=== PATIENT | female | born 1940 | race Caucasian/White ===

== ENCOUNTER → 2020-03-05 08:05 | Outpatient (BNVA) | payer MEDICARE, MEDICAID, SELFPAY | PROVIDERS: PCP Internal Medicine; Visit Provider Internal Medicine | DX: I48.0 Paroxysmal atrial fibrillation (principal); Z51.81 Encounter for therapeutic drug level monitoring; Z79.01 Long term (current) use of anticoagulants | CPT/HCPCS: 85610; 99211 ==

== ENCOUNTER 2020-03-21 07:11 | Outpatient (REF) | payer MEDICARE, MEDICAID, SELFPAY ==
[2020-03-21 08:12] LABS: Hematocrit 44.5 % (37-47); Hemoglobin 14.5 g/dl (12.0-16.0); Mean Corpuscular HGB Conc 32.6 g/dl (31.0-35.0); Mean Corpuscular Hemoglobin 31.2 pg (27.0-33.0); Mean Corpuscular Volume 95.7 fL (80-98); Mean Platelet Volume 11.9 fL (9.4-12.3); Platelet Count 192 X10*3/uL (160-400); Red Blood Count 4.65 X10*6/uL (4.20-5.50); Red Cell Distribution Width 12.9 % (11.0-16.0)
[2020-03-21 08:37] LABS: Alanine Aminotransferase 25 U/L (0-31); Albumin Level 4.2 g/dL (3.5-5.0); Alkaline Phosphatase 81 U/L (39-117); Anion Gap 13 (12-20); Aspartate Amino Transferase 22 U/L (5-31); Bilirubin Total 0.4 mg/dL (0.0-1.0); Blood Urea Nitrogen 25 mg/dL (9-16); Calcium 9.6 mg/dL (8.4-10.2); Carbon Dioxide 32 mmol/L (22-29); Chloride 100 mmol/L (96-108); Cholesterol 330 mg/dL; Estimated Glomerular Filt Rate 48; Glucose Fasting 201 mg/dL (60-99); HDL Cholesterol 50 mg/dL; LDL Cholesterol Calculated 253 mg/dl; Potassium 4.6 mmol/l (3.3-5.1); Sodium 140 mmol/L (135-145); Total Protein 7.5 g/dL (6.5-8.0); Triglycerides 135 mg/dL
[2020-03-21 08:45] LABS: Estimated Average Glucose 131 mg/dL; Hemoglobin A1c % 6.2 %
[2020-03-21 09:00] LABS: Thyroid Stimulating Hormone 1.56 mIU/mL (0.32-4.0)
[2020-03-21 09:31] LABS: Creatinine Urine 91.87 mg/dL; Microalbum/Creatinine Ratio Ur 9.7 ug/mg cr
== END 2020-03-21 07:12 | disposition home or self-care (01) ==
LOC: HO.LAB 07:11
PROVIDERS: PCP Internal Medicine; Visit Provider Internal Medicine
DX: E11.9 Type 2 diabetes mellitus without complications (principal); I48.91 Unspecified atrial fibrillation; I50.9 Heart failure, unspecified; I11.0 Hypertensive heart disease with heart failure; E78.5 Hyperlipidemia, unspecified; M06.9 Rheumatoid arthritis, unspecified; I26.99 Other pulmonary embolism without acute cor pulmonale; I87.2 Venous insufficiency (chronic) (peripheral); Z79.01 Long term (current) use of anticoagulants
CPT/HCPCS: 36415; 80048; 80053; 80061; 82043; 83036; 84443; 85027

== ENCOUNTER 2020-03-28 07:42 | Outpatient (REF) | payer MEDICARE, MEDICAID, SELFPAY ==
[2020-03-28 09:15] LABS: Anion Gap 17 (12-20); Blood Urea Nitrogen 24 mg/dL (9-16); Carbon Dioxide 31 mmol/L (22-29); Chloride 100 mmol/L (96-108); Estimated Glomerular Filt Rate 54; Glucose Random 132 mg/dL (60-115); Magnesium 2.1 mg/dL (1.6-2.6); Potassium 5.1 mmol/l (3.3-5.1); Sodium 143 mmol/L (135-145)
== END 2020-03-28 07:43 | disposition home or self-care (01) ==
LOC: HO.LAB 07:42
PROVIDERS: PCP Internal Medicine; Visit Provider Nurse Practitioner Family
DX: I48.11 Longstanding persistent atrial fibrillation (principal); I50.32 Chronic diastolic (congestive) heart failure
CPT/HCPCS: 80048; 83735

== ENCOUNTER → 2020-04-01 08:06 | Outpatient (BNVA) | payer MEDICARE, MEDICAID, SELFPAY | PROVIDERS: PCP Internal Medicine; Visit Provider Internal Medicine | DX: I48.0 Paroxysmal atrial fibrillation (principal); Z51.81 Encounter for therapeutic drug level monitoring; Z79.01 Long term (current) use of anticoagulants | CPT/HCPCS: 85610; 99211 ==

== ENCOUNTER → 2020-04-29 08:15 | Outpatient (BNVA) | payer MEDICARE, MEDICAID, SELFPAY | PROVIDERS: PCP Internal Medicine; Visit Provider Internal Medicine | DX: I48.0 Paroxysmal atrial fibrillation (principal); Z51.81 Encounter for therapeutic drug level monitoring; Z79.01 Long term (current) use of anticoagulants | CPT/HCPCS: 85610; 99211 ==

== ENCOUNTER → 2020-05-27 11:04 | Outpatient (BNVA) | payer MEDICARE, MEDICAID, SELFPAY | PROVIDERS: PCP Internal Medicine; Visit Provider Internal Medicine | DX: Z76.89 Persons encountering health services in other specified circumstances (principal) | CPT/HCPCS: 85610; 99211 ==

== ENCOUNTER 2020-05-27 13:19 | Outpatient (REF) | payer MEDICARE, MEDICAID, SELFPAY | END 2020-05-27 13:20 | disposition home or self-care (01) | LOC: HO.HMGCLDS 13:19 | PROVIDERS: PCP Internal Medicine; Visit Provider Internal Medicine | DX: Z20.828 Contact with and (suspected) exposure to other viral communicable diseases (principal) | CPT/HCPCS: 85610; 99211; C9803; U0003 ==

== ENCOUNTER 2020-06-24 08:17 | Outpatient (REF) | payer MEDICARE, MEDICAID, SELFPAY ==
--- NOTE | 2020-06-24 15:42 | XR_ITS ---
EXAMINATION: XR CHEST CLINICAL INFORMATION: R05 - Cough COMPARISON: Chest radiographs 09/19/2018, 02/24/2018 TECHNIQUE: 2 views of the chest were obtained. FINDINGS: There is enlarged cardiopericardial silhouette similar to prior studies. The vascularity is normal. There is tapering right cardiophrenic angle likely related to areolar tissue, similar to prior study. The costophrenic sulci are clear. There is no lobar or segmental airspace consolidation or air bronchograms. The hilar and mediastinal contours and visualized bony structures show no acute abnormality. XR/XR chest 2V IMPRESSION: No acute intrathoracic disease.
== END 2020-06-24 08:18 | disposition home or self-care (01) ==
LOC: HO.HMGCX 08:17
PROVIDERS: Absent Provider Nurse Practitioner Family; PCP Internal Medicine; Visit Provider Internal Medicine
DX: Z86.718 Personal history of other venous thrombosis and embolism (principal); Z79.01 Long term (current) use of anticoagulants
CPT/HCPCS: 71046; 85610; 99211

== ENCOUNTER 2020-07-18 08:25 | Outpatient (REF) | payer MEDICARE, MEDICAID, SELFPAY ==
[2020-07-18 11:08] LABS: Hematocrit 45.8 % (37-47); Hemoglobin 14.5 g/dl (12.0-16.0); Mean Corpuscular HGB Conc 31.7 g/dl (31.0-35.0); Mean Corpuscular Hemoglobin 30.9 pg (27.0-33.0); Mean Corpuscular Volume 97.4 fL (80-98); Mean Platelet Volume 12.2 fL (9.4-12.3); Platelet Count 193 X10*3/uL (160-400); Red Cell Distribution Width 12.6 % (11.0-16.0); White Blood Count 5.4 X10*3/uL (4.8-10.8)
[2020-07-18 11:25] LABS: Estimated Average Glucose 143 mg/dL; Hemoglobin A1c % 6.6 %
[2020-07-18 11:35] LABS: B Type Natriuretic Peptide 151 pg/mL (<100)
[2020-07-18 11:53] LABS: TSH reflex Free T4 4.92 uIU/mL (0.32-4.0)
[2020-07-18 12:05] LABS: Alanine Aminotransferase 28 U/L (0-31); Albumin Level 4.4 g/dL (3.5-5.0); Alkaline Phosphatase 85 U/L (39-117); Anion Gap 15 (12-20); Aspartate Amino Transferase 29 U/L (5-31); Bilirubin Total 0.6 mg/dL (0.0-1.0); Blood Urea Nitrogen 28 mg/dL (9-16); Calcium 9.4 mg/dL (8.4-10.2); Carbon Dioxide 35 mmol/L (22-29); Chloride 98 mmol/L (96-108); Cholesterol 370 mg/dL; Estimated Glomerular Filt Rate 53; Glucose Fasting 128 mg/dL (60-99); HDL Cholesterol 39 mg/dL; LDL Cholesterol Calculated 261 mg/dl; Potassium 4.8 mmol/L (3.3-5.1); Sodium 143 mmol/L (135-145); Total Protein 7.5 g/dL (6.5-8.0); Triglycerides 351 mg/dL
[2020-07-18 12:51] LABS: Free T4 (Free Thyroxine) 0.84 ng/dL (0.71-1.85)
== END 2020-07-18 08:26 | disposition home or self-care (01) ==
LOC: HO.HMGCLDS 08:25
PROVIDERS: PCP Internal Medicine; Visit Provider Internal Medicine
DX: I48.91 Unspecified atrial fibrillation (principal); I50.9 Heart failure, unspecified; E11.9 Type 2 diabetes mellitus without complications; R53.81 Other malaise
CPT/HCPCS: 36415; 80053; 80061; 83036; 83880; 84439; 84443; 85027

== ENCOUNTER → 2020-07-22 08:08 | Outpatient (BNVA) | payer MEDICARE, MEDICAID, SELFPAY | PROVIDERS: PCP Internal Medicine; Visit Provider Internal Medicine | DX: I48.0 Paroxysmal atrial fibrillation (principal); Z51.81 Encounter for therapeutic drug level monitoring; Z79.01 Long term (current) use of anticoagulants | CPT/HCPCS: 85610; 99211 ==

== ENCOUNTER → 2020-09-17 13:43 | Outpatient (BNVA) | payer MEDICARE, MEDICAID, SELFPAY | PROVIDERS: PCP Internal Medicine; Visit Provider Internal Medicine | DX: I48.0 Paroxysmal atrial fibrillation (principal); Z79.01 Long term (current) use of anticoagulants; Z51.81 Encounter for therapeutic drug level monitoring | CPT/HCPCS: 85610; 99211 ==

== ENCOUNTER → 2020-09-30 08:53 | Outpatient (BNVA) | payer MEDICARE, MEDICAID, SELFPAY | PROVIDERS: PCP Internal Medicine; Visit Provider Internal Medicine | DX: I48.0 Paroxysmal atrial fibrillation (principal); Z51.81 Encounter for therapeutic drug level monitoring; Z79.01 Long term (current) use of anticoagulants | CPT/HCPCS: 85610; 99211 ==

== ENCOUNTER 2020-10-01 14:00 | Outpatient (RCR) | payer MEDICARE, MEDICAID, SELFPAY ==
[2020-08-13 09:05] VITALS: BP 160/98; PULSE 72; O2SAT 93
--- NOTE | 2020-08-13 12:56 | MHC.PT.EP ---
[facility] [place] Office [place] Office [place] Office [address] Scott Mondragon [address] [phone] F: [phone] F: [phone] F: [phone] F: [phone] Physical Therapy Plan of Care Date of Evaluation: 08/13/20 Date of Surgery: Diagnosis: LISET LEs PHYSICAL DECONDITIONING Assessment: 79 YO FEMALE W MULTIPLE MEDICAL DXs REF TO PT FOR LISET LEs WEAKNESS AND Lt KNEE PAIN- SHE NOTES DIFFIC W PERFORMING REG ADLs AND PERFORMING HER HEP. Pt IS ON INTERMITTENT O2 AT HOME AND CPAP AT NIGHT. SHE HAS DECR AROM LISET LEs (H/O ORIF Rt ANKLE), WEAKNESS IN LISET LEs, AND GENERAL Lt KNEE PAIN. FUNCTIONALLY, Pt REQ INCR UEs USAGE W TRANSFERS, SHE DEMON AMB APPROX 2 MIN AND REQ SEATED REST, DIFFIC W IN/OUT OF CAR /HOUSEWORK/ GROCERIES. Pt WOULD BENEFIT FROM PT TO ADDRESS LEs WEAKNESS, LEFT KNEE PAIN, FUNCTIONAL MOBILITY AND ACTIVITY TOLERANCE. Frequency and Duration: The patient will be seen 2xWK x 5WKS Short Term Goals: Pt JACKYON IMPROVED TRANSFERS ALL SURFACES W INCR LEs USAGE IN 2 WKS Pt JACKYON IMPROVED ACTIVITY ALANA - IN PT TREATMENT WELL HOME TASKS- IE- STANDING TO PREPARE DINNER IN 3 WKS Custodial Goals: Pt INDEP W HEP IN 5 WKS Pt JACKYON IMPROVED FUNCT MOB ALANA EVIDENT WITH IMPROVED LEFT SCORE BY 10 POINTS (10/80 AT EVAL) Treatment Plan: Modalities to reduce pain, spasms and effusion. Manual therapy to restore motion and function. Therapeutic exercise to improve strength and flexibility. Neuromuscular re-education for posture and balance. Therapeutic activities to return to functional activities of daily living. Electronically signed by: Jennifer Romo,PT Please sign and return to therapist. Thank you for your referral.
--- NOTE | 2020-11-06 07:05 | MHC.PT.DC ---
[facility] [place] Office [place] Office [place] Office [address] Scott Mondragon [address] [phone] F: [phone] F: [phone] F: [phone] F: [phone] Physical Therapy Discharge Report Diagnosis: LISET LEs PHYSICAL DECONDITIONING Date of Surgery: Date of Evaluation: 08/13/20 Date of Discharge: 11/06/20 Treatments to Date: 10 Cancellations to Date: 2 No Shows to Date: 0 Discharge Status: Independent with HEP Recommend MD Follow-up Discharge Summary: Pt HAS A HEP AND WAS ABLE TO IMPROVE HER FUNCTIONAL MOBILITY- Pt REQ MORE FREQ SEATED RESTS THIS DATE- EASILY FATIGUED ; Pt PURSUING PULMONARY / CARDIAC REHAB TO ALLOW FOR MONITORED ACTIVITY PROGR AND IS D/C FROM PT AT THIS TIME. Electronically signed by: Jennifer Romo,PT Please sign and return to therapist. Thank you for your referral.
== END 2020-11-06 07:06 | disposition other institution (70) ==
LOC: HO.PTCHIC 14:00
PROVIDERS: PCP Internal Medicine; Visit Provider Internal Medicine
DX: R53.81 Other malaise (principal)
CPT/HCPCS: 97110; 97163

== ENCOUNTER → 2020-10-14 08:49 | Outpatient (BNVA) | payer MEDICARE, MEDICAID, SELFPAY | PROVIDERS: PCP Internal Medicine; Visit Provider Internal Medicine | DX: R23.3 Spontaneous ecchymoses (principal) | CPT/HCPCS: 85610; 99211 ==

== ENCOUNTER 2020-10-16 09:35 | Outpatient (REF) | payer MEDICARE, MEDICAID, SELFPAY ==
[2020-10-16 11:42] LABS: Hematocrit 43.2 % (37-47); Hemoglobin 13.7 g/dl (12.0-16.0); Mean Corpuscular HGB Conc 31.7 g/dl (31.0-35.0); Mean Corpuscular Hemoglobin 31.5 pg (27.0-33.0); Mean Corpuscular Volume 99.3 fL (80-98); Mean Platelet Volume 11.6 fL (9.4-12.3); Platelet Count 188 X10*3/uL (160-400); Red Blood Count 4.35 X10*6/uL (4.20-5.50); Red Cell Distribution Width 12.6 % (11.0-16.0); White Blood Count 6.7 X10*3/uL (4.8-10.8)
[2020-10-16 12:06] LABS: Estimated Average Glucose 140 mg/dL; Hemoglobin A1c % 6.5 %
[2020-10-16 12:07] LABS: B Type Natriuretic Peptide 137 pg/mL (<100)
[2020-10-16 12:35] LABS: Alanine Aminotransferase 25 U/L (0-31); Albumin Level 4.1 g/dL (3.5-5.0); Alkaline Phosphatase 75 U/L (39-117); Anion Gap 13 (12-20); Aspartate Amino Transferase 22 U/L (5-31); Bilirubin Total 0.5 mg/dL (0.0-1.0); Blood Urea Nitrogen 28 mg/dL (9-16); Calcium 9.4 mg/dL (8.4-10.2); Carbon Dioxide 32 mmol/L (22-29); Chloride 101 mmol/L (96-108); Cholesterol 274 mg/dL; Estimated Glomerular Filt Rate 50; Glucose Fasting 130 mg/dL (60-99); HDL Cholesterol 41 mg/dL; LDL Cholesterol Calculated 176 mg/dl; Potassium 4.2 mmol/L (3.3-5.1); Sodium 142 mmol/L (135-145); Total Protein 7.1 g/dL (6.5-8.0); Triglycerides 287 mg/dL
== END 2020-10-16 09:36 | disposition home or self-care (01) ==
LOC: HO.HMGCLDS 09:35
PROVIDERS: PCP Internal Medicine; Visit Provider Internal Medicine
DX: I11.0 Hypertensive heart disease with heart failure (principal); I50.9 Heart failure, unspecified; E11.9 Type 2 diabetes mellitus without complications; I48.91 Unspecified atrial fibrillation
CPT/HCPCS: 36415; 80053; 80061; 83036; 83880; 85027

== ENCOUNTER 2020-12-10 14:08 | Emergency (ER) | payer MEDICARE, MEDICAID, SELFPAY ==
--- NOTE | ~2020-12-10 | XR_ITS ---
EXAMINATION: XR TIBIA AND FIBULA, RIGHT CLINICAL INFORMATION: Deep laceration. Rule out bony abnormality. COMPARISON: None TECHNIQUE: AP and lateral views of the right tibia and fibula were obtained. FINDINGS: There is no visible fracture, cortical abnormality or periosteal thickening. The soft tissues are normal. There is instrumentation for old healed calcaneal fracture. The ankle mortise and subtalar joints are normal. XR/XR tibia fibula RT 2V IMPRESSION: Unremarkable right tibia and fibula.
[2020-12-10 14:16] VITALS: BP 136/73; PULSE 87; RESP 20; TEMP 36.8; O2SAT 94; BMI 96.0
--- NOTE | 2020-12-10 15:28 | ED_ITS ---
HPI - Wound/Laceration General Chief Complaint: Wound/Laceration Stated Complaint: Wound, pt on blood thiners Time Seen by Provider: 12/10/20 14:53 Source: patient Mode of arrival: ambulatory Limitations: no limitations History of Present Illness HPI narrative: 79-year-old female who is currently on apixaban presents to the emergency department with right distal leg wound. Patient [place] to put her walker back in her vehicle when it accidentally struck the anterior portion of her right leg. She immediately noticed significant bleeding states it was gushing and spurting everywhere. Bystanders found neck and then held pressure. Patient was instructed to go to the emergency department for evaluation. Since wound to stop bleeding patient only admits to minor discomfort states she was able to ambulate without difficulty. Denies any other areas of injury or trauma specifically denies head or neck injury. Related Data Home Medications Medication Instructions Recorded Confirmed blood sugar diagnostic #10 ea 03/11/20 10/14/20 blood-glucose meter #1 ea 03/11/20 10/14/20 budesonide-formoterol HFA 160 INHALATION 03/11/20 10/14/20 mcg-4.5 mcg/actuation aerosol inhaler diltiazem HCl 240 mg 240 mg PO DAILY 03/11/20 10/14/20 capsule,extended release 24 hr, controlled folic acid 1 mg tablet 1 mg PO DAILY 03/11/20 10/14/20 sulfasalazine 500 mg tablet 500 mg PO BID 03/11/20 10/14/20 tramadol 50 mg tablet mg PO 03/11/20 09/30/20 flu vacc [id number](65yr up)-PF 240 ml IM 05/27/20 10/14/20 mcg/0.7 mL intramuscular syringe umeclidinium 62.5 mcg/actuation INHALATION 05/27/20 10/14/20 blister powder for inhalation meloxicam 15 mg tablet 15 mg PO DAILY 09/30/20 09/30/20 ascorbic acid (vitamin C) 500 mg 500 mg PO DAILY 10/14/20 10/14/20 tablet Previous Rx's Medication Instructions Recorded warfarin 5 mg tablet 5 mg PO DAILY #90 tab 03/05/20 pantoprazole 40 mg tablet,delayed 40 mg PO DAILY #90 tab 03/11/20 release sertraline 50 mg tablet 50 mg PO DAILY #90 tab 03/11/20 levothyroxine 50 mcg tablet 50 mcg PO QAM #90 tab 04/30/20 glipizide 5 mg tablet 5 mg PO DAILY #90 tab 05/06/20 polymyxin B sulfate 10,000 1 drp OPHTHALMIC (EYE) QID 7 Days 05/15/20 unit-trimethoprim 1 mg/mL eye drops #10 ml azithromycin 250 mg tablet See Rx Instructions PO .COMPLEX #6 08/22/20 tab prednisone 10 mg tablet 10 mg PO DAILY #30 tab 08/22/20 albuterol sulfate 0.63 mg/3 mL 0.63 mg INHALATION Q4-6H PRN #90 ml 08/23/20 solution for nebulization gabapentin 300 mg capsule 300 mg PO BID #180 cap 09/10/20 sertraline 100 mg tablet 100 mg PO DAILY #90 tab 09/27/20 apixaban 5 mg tablet 5 mg PO BID #60 tab 10/14/20 lisinopril 40 mg tablet 40 mg PO DAILY #90 tab 10/22/20 meclizine 25 mg tablet 25 mg PO DAILY PRN #30 tab 10/23/20 furosemide 40 mg tablet 60 mg PO BID #270 tab 11/28/20 Allergies Allergy/AdvReac Type Severity Reaction Status Date / Time atorvastatin [Lipitor] Allergy Unknown Unknown Verified 09/17/20 13:45 ciprofloxacin [From Cipro] Allergy Unknown Unknown Verified 09/17/20 13:45 ezetimibe [Zetia] Allergy Unknown unkno Verified 09/17/20 13:45 hydrochlorothiazide Allergy Unknown Unknown Verified 09/17/20 13:45 [From Avalide] Hytrin Allergy Unknown Unknown Verified 09/17/20 13:45 infliximab [From REMICADE] Allergy Unknown INFECTION Verified 09/17/20 13:45 irbesartan [From Avalide] Allergy Unknown Unknown Verified 09/17/20 13:45 metformin Allergy Unknown nausea Verified 09/17/20 13:45 nifedipine Allergy Unknown Unknown Verified 09/17/20 13:45 pravastatin Allergy Unknown stomach Verified 09/17/20 13:45 upset rosuvastatin [Crestor] Allergy Unknown Unknown Verified 09/17/20 13:45 valsartan [Diovan] Allergy Unknown Unknown Verified 09/17/20 13:45 warfarin [WARFARIN] Allergy Unknown THROAT Verified 09/17/20 13:45 SWELLING moxifloxacin [From Avelox] Allergy Unknown Verified 09/17/20 13:45 Review of Systems Review of Systems: Constitutional : No Weight loss, No Fever, No Chills, No Night Sweats, No Fatigue, No Malaise ENT/Mouth : No Hearing loss, No Ear Pain, No Nasal Congestion, No Sinus Pain, No Hoarseness, No sore throat, No Rhinorrhea, No Swallowing Difficulty Eyes: No Eye Pain, No Swelling, No Redness, No Foreign Body, No Discharge, No Vision Changes Cardiovascular : No Chest Pain, No SOB, No Dyspnea on Exertion, No Orthopnea, No Edema, No Palpitations Respiratory : No Cough, No Sputum, No Wheezing, No Smoke Exposure, No Dyspnea Gastrointestinal : No Nausea, No Vomiting, No Diarrhea, No Constipation, No abdominal Pain, No Hematochezia, No Melena Genitourinary : no irregular bleeding, No Dysuria, No Urinary Frequency, No Hematuria, No Urinary Incontinence, No Urgency, No Flank Pain, No Urinary Flow Changes, No Hesitancy Musculoskeletal : No joint pain, No Myalgias, No Joint Swelling Skin : No Skin Lesions, No rash, + right leg wound Neuro : No Weakness, No Numbness, No Paresthesias, No Loss of Consciousness, No Dizziness, No Headache Psych : No Anxiety/Panic, No Depression, No SI/HI/AH/VH, No Social Issues, Heme/Lymph: No Bruising, + Bleeding,No Lymphadenopathy Endocrine : No Polyuria, No Polydipsia, No Temperature Intolerance PMFSH Past Medical History Attestation statement: The following information was validated with the patient. Source: old records reviewed and obtained from family Medical History (Updated 10/14/20 @ 15:03 by Salud Lester MD) Atrial fibrillation Cervical radiculopathy due to degenerative joint disease of spine CHF (congestive heart failure) Conjunctivitis COPD (chronic obstructive pulmonary disease) Depression Diabetes Diastolic dysfunction with chronic heart failure Hemorrhoids Hyperlipidemia Hypertension Obesity Petechiae Physical deconditioning Recurrent pulmonary embolism Rheumatoid arthritis Venous insufficiency Family History Family History (Updated 03/07/20 @ 09:53 by Juani Rico, RMA, DEPENDENCY PROGRAM DIRECTOR) Father No problems noted. Mother No problems noted. Social History Social History (Updated 03/11/20 @ 09:00 by Karen Rodrigez RN) Advance Directives: No Advance Directives Information Provided: No Physical Exam Vital Signs: Vital Signs: Last Vital Signs Temp 98.2 F 12/10/20 14:16 Pulse 87 12/10/20 14:16 Resp 20 12/10/20 14:16 BP 136/73 12/10/20 14:16 Pulse Ox 94 12/10/20 14:16 Body Mass Index 96.0 vital signs have been reviewed as normal and appeared to be correct. Blood pressure normal. Heart rate normal. Respiration rate normal. Temperature normal. Oxygen saturation normal. Appearance: Alert. Oriented X3. No acute distress. Head: Normal external exam. Normocephalic. Atraumatic. No Persaud signs noted. No raccoon eyes noted Eyes: Conjunctiva and sclera normal. ENT: EAC normal. Moist mucous membranes. No drooling noted. No muffled voice noted. Neck: Normal inspection. Neck supple. FROM. No meningeal signs. CVS: Pulses normal throughout. Respiratory: No respiratory distress. Painless inspiration. No accessory muscle usage noted Abdomen: No visible injury noted. Back: Full range of motion noted. Skin: Skin warm and dry. Normal skin color. Extremities: No lower extremity edema. Extremities exhibit normal range of motion. Patient with large skin tear to right anterior norris no active bleeding large clot noted within the wound itself. Good distal pulses. Good capillary refill. Wound itself is approximately 3 cm x 4 cm Neuro: Oriented X 3. No motor deficit. No sensory deficit. Procedures Laceration Laceration 1: Site: lower extremity Side (If applicable): right Size (cm): 4 Description: irregular Depth: simple, single layer Pre-repair: wound explored and irrigated extensively Skin layer closed with: other (steri-strips, pressure dressing) MDM - Wound/Laceration MDM Narrative Medical decision making narrative: patient's vital signs are stable and she is afebrile. Patient presented to the emergency department with right anterior norris wound currently on blood thinners. Wound at this time is not bleeding after holding pressure. Wound explored seems to be a large deep skin tear. I do not think this would benefit from suture repair however would benefit from thorough cleanse and Steri-Strips repair with pressure dressing. This will be performed at the bedside as well as an x-ray to rule out bony involvement. Will start patient on Keflex as she is a diabetic and is a deep wound likely lead to poor healing will advise close outpatient wound care follow-up which she has already established with due to ongoing wound care patient comfortable with this plan will continue to monitor. Discharge Plan Discharge Prescriptions: No Action levothyroxine 50 mcg tablet 50 mcg PO QAM Qty: 90 RF: 3 glipizide 5 mg tablet 5 mg PO DAILY Qty: 90 RF: 3 albuterol sulfate 0.63 mg/3 mL solution for nebulization 0.63 mg inhalation Q4-6H PRN (Reason: shortness of breath or wheezing) Qty: 90 RF: 3 gabapentin 300 mg capsule 300 mg PO BID Qty: 180 RF: 3 lisinopril 40 mg tablet 40 mg PO DAILY Qty: 90 RF: 3 meclizine 25 mg tablet 25 mg PO DAILY PRN (Reason: dizziness) Qty: 30 RF: 1 furosemide 40 mg tablet 60 mg PO BID Qty: 270 RF: 3 (DME) blood-glucose meter Kit See Rx Instructions ea Not Applicable BID Qty: 1 RF: 0 (DME) FreeStyle Lite Strips Strip See Rx Instructions ea Not Applicable BID Qty: 10 RF: 0 sulfasalazine 500 mg tablet 500 mg PO BID RF: 0 folic acid 1 mg tablet 1 mg PO DAILY RF: 0 diltiazem HCl 240 mg capsule,ext.rel 24h degradable 240 mg PO DAILY RF: 0 budesonide-formoterol 160-4.5 mcg/actuation HFA aerosol inhaler inhalation RF: 0 tramadol 50 mg tablet PO RF: 0 pantoprazole 40 mg tablet,delayed release (DR/EC) 40 mg PO DAILY Qty: 90 RF: 3 sertraline 50 mg tablet 50 mg PO DAILY Qty: 90 RF: 3 polymyxin B sulf-trimethoprim [Polytrim] 10,000 unit- 1 mg/mL drops 1 drp ophthalmic (eye) QID 7 Days Qty: 10 RF: 0 Incruse Ellipta 62.5 mcg/actuation blister with device inhalation RF: 0 Fluzone HighDose Quad 20-21 PF 240 mcg/0.7 mL syringe IM RF: 0 azithromycin 250 mg tablet See Rx Instructions PO .COMPLEX Qty: 6 RF: 0 prednisone 10 mg tablet 10 mg PO DAILY Qty: 30 RF: 0 sertraline 100 mg tablet 100 mg PO DAILY Qty: 90 RF: 0 warfarin [Jantoven] 5 mg tablet 5 mg PO DAILY Qty: 90 RF: 0 meloxicam 15 mg tablet 15 mg PO DAILY RF: 0 ascorbic acid (vitamin C) 500 mg tablet 500 mg PO DAILY RF: 0 Eliquis 5 mg tablet 5 mg PO BID Qty: 60 RF: 3
[2020-12-10] MEDS: cephALEXin 500 MG CAPSULE PO (16:22)
== END 2020-12-10 16:37 | disposition home or self-care (01) ==
PROVIDERS: Emergency Provider Emergency Medicine; PCP Internal Medicine
DX: S81.801A Unspecified open wound, right lower leg, initial encounter (principal); W22.8XXA Striking against or struck by other objects, initial encounter; E11.9 Type 2 diabetes mellitus without complications; I10 Essential (primary) hypertension; I48.91 Unspecified atrial fibrillation; Y93.89 Activity, other specified; Y92.89 Other specified places as the place of occurrence of the external cause; Y99.9 Unspecified external cause status; Z79.01 Long term (current) use of anticoagulants; Z79.899 Other long term (current) drug therapy
CPT/HCPCS: 73590; 99283

== ENCOUNTER 2020-12-18 07:56 | Outpatient (RCR) | payer MEDICARE, MEDICAID, SELFPAY | END 2021-04-29 09:18 | disposition home or self-care (01) | LOC: HO.WCC 07:56 | PROVIDERS: PCP Internal Medicine; Visit Provider Surgery | DX: E11.622 Type 2 diabetes mellitus with other skin ulcer (principal); I87.331 Chronic venous hypertension (idiopathic) with ulcer and inflammation of right lower extremity; L97.812 Non-pressure chronic ulcer of other part of right lower leg with fat layer exposed; I87.322 Chronic venous hypertension (idiopathic) with inflammation of left lower extremity; J41.0 Simple chronic bronchitis; Z79.899 Other long term (current) drug therapy; Z79.01 Long term (current) use of anticoagulants | CPT/HCPCS: 11042; 15271; 97597; 99212; 99213; Q4187 ==

== ENCOUNTER 2021-02-05 08:18 | Outpatient (REF) | payer MEDICARE, MEDICAID, SELFPAY ==
[2021-02-05 11:20] LABS: Hematocrit 42.5 % (37-47); Hemoglobin 13.5 g/dl (12.0-16.0); Mean Corpuscular HGB Conc 31.8 g/dl (31.0-35.0); Mean Corpuscular Hemoglobin 30.9 pg (27.0-33.0); Mean Corpuscular Volume 97.3 fL (80-98); Platelet Count 173 X10*3/uL (160-400); Red Blood Count 4.37 X10*6/uL (4.20-5.50); Red Cell Distribution Width 12.8 % (11.0-16.0); White Blood Count 5.8 X10*3/uL (4.8-10.8)
[2021-02-05 11:44] LABS: Alanine Aminotransferase 16 U/L (0-31); Albumin Level 4.1 g/dL (3.5-5.0); Alkaline Phosphatase 85 U/L (39-117); Anion Gap 13 (12-20); Aspartate Amino Transferase 20 U/L (5-31); Bilirubin Total 0.7 mg/dL (0.0-1.0); Blood Urea Nitrogen 28 mg/dL (9-16); Calcium 9.8 mg/dL (8.4-10.2); Carbon Dioxide 33 mmol/L (22-29); Chloride 103 mmol/L (96-108); Cholesterol 232 mg/dL; Estimated Glomerular Filt Rate 39; Glucose Fasting 123 mg/dL (60-99); HDL Cholesterol 36 mg/dL; LDL Cholesterol Calculated 154 mg/dl; Potassium 4.7 mmol/L (3.3-5.1); Sodium 144 mmol/L (135-145); Total Protein 7.3 g/dL (6.5-8.0); Triglycerides 212 mg/dL
[2021-02-05 11:45] LABS: Estimated Average Glucose 126 mg/dL
[2021-02-05 11:51] LABS: Creatinine Urine 131.36 mg/dL; Microalbum/Creatinine Ratio Ur 5.3 ug/mg cr
[2021-02-05 12:09] LABS: TSH reflex Free T4 3.56 uIU/mL (0.32-4.0)
== END 2021-02-05 08:19 | disposition home or self-care (01) ==
LOC: HO.HMGCLDS 08:18
PROVIDERS: PCP Internal Medicine; Visit Provider Internal Medicine
DX: Z20.822 Contact with and (suspected) exposure to COVID-19 (principal); I48.91 Unspecified atrial fibrillation; I11.0 Hypertensive heart disease with heart failure; I50.9 Heart failure, unspecified; J44.9 Chronic obstructive pulmonary disease, unspecified; R23.3 Spontaneous ecchymoses
CPT/HCPCS: 80053; 80061; 82043; 83036; 84443; 85027; U0003; U0005

== ENCOUNTER 2021-02-24 13:38 | Outpatient (REF) | payer MEDICARE, MEDICAID, SELFPAY ==
--- NOTE | ~2021-02-24 | XR_ITS ---
EXAMINATION: XR CHEST CLINICAL INFORMATION: Hypoxemia. COMPARISON: None TECHNIQUE: 2 views of the chest were obtained. FINDINGS: The lungs are somewhat expanded with patchy opacities in both lungs slightly worse in the right lung. There is blunting of bilateral CP angle from pleural effusion or thickening. Heart size enlarged. Pulmonary vascularity is normal. No gross bony abnormality seen. XR/XR chest 2V IMPRESSION: Bilateral patchy infiltrates slightly worse on the right. No change in cardiomegaly.
== END 2021-02-24 13:39 | disposition home or self-care (01) ==
LOC: HO.HMGCX 13:38
PROVIDERS: PCP Internal Medicine; Visit Provider Physician Assistant
DX: Z13.89 Encounter for screening for other disorder (principal)
CPT/HCPCS: 71046

== ENCOUNTER 2021-02-24 14:45 | Inpatient (IN) | payer MEDICARE, MEDICAID, SELFPAY ==
--- NOTE | ~2021-02-24 | XR_ITS ---
EXAMINATION: XR CHEST CLINICAL INFORMATION: Dyspnea. COMPARISON: None TECHNIQUE: Frontal view of the chest was obtained. FINDINGS: The lungs are well-expanded patchy opacity seen in both lung bases likely infiltrate, similar to previous study. There is bandlike atelectasis left midlung. Heart size enlarged. Pulmonary vascularity is normal. Mild blunting of CP angle. Moderate spondylosis dorsal spine. XR/XR chest 1V IMPRESSION: No change in bilateral patchy infiltrates and mild cardiac likely.
--- NOTE | 2021-02-24 14:52 | ED.SOB ---
HPI - SOB/Dyspnea General Chief Complaint: Upper Respiratory Symptoms Stated Complaint: SOB FROM URGENT CARE Time Seen by Provider: 02/24/21 14:51 Source: patient and old records reviewed Mode of arrival: ambulatory Limitations: no limitations History of Present Illness HPI Narrative: 80-year-old female past medical history of COPD, atrial fibrillation, CHF, hypertension, diabetes and RA presents to the emergency department with shortness of breath, and a productive cough for the past week. She states that she went to urgent care this morning for these symptoms, and they told her she was saturating 87% on room air, so they advised her to come to the emergency department. She also has vague complaints of centralized nonradiating chest tightness. states that her shortness of breath has been increasing over the past week, requiring her to use oxygen at home. She also reports increased lower extremity edema from the knee down. This has been worsening over the past week as well. She has had a productive cough, white sputum. That appeared to worsen after she took a Z-Raad & po steroids last week. She denies chest pain, abdominal pain, fevers, chills, nausea, vomiting. She has her COVID-19 vaccination. She is a nonsmoker MD elicited complaint: shortness of breath and cough (Productive) Pertinent past history: COPD and congestive heart failure Onset (ago): week(s) (1) Context: recent illness Timing: constant Severity: moderate Exacerbating factors: movement, coughing, inspiration and talking Relieving factors: nothing Known history of: COPD, congestive heart failure and diabetes Associated symptoms: cough (Productive of white sputum) and sputum production (White) Treatment prior to arrival: none Related Data Home Medications Medication Instructions Recorded Confirmed blood sugar diagnostic #10 ea 03/11/20 02/18/21 blood-glucose meter #1 ea 03/11/20 02/18/21 budesonide-formoterol HFA 160 1 puff INHALATION BID 03/11/20 02/24/21 mcg-4.5 mcg/actuation aerosol inhaler diltiazem HCl 240 mg 240 mg PO DAILY 03/11/20 02/24/21 capsule,extended release 24 hr, controlled ascorbic acid (vitamin C) 500 mg 500 mg PO DAILY 10/14/20 02/24/21 tablet sulfasalazine 500 mg tablet 500 mg PO DAILY 02/24/21 02/24/21 umeclidinium 62.5 mcg/actuation 1 puff PO DAILY 02/24/21 02/24/21 blister powder for inhalation (Incruse Ellipta) Previous Rx's Medication Instructions Recorded pantoprazole 40 mg tablet,delayed 40 mg PO DAILY #90 tab 03/11/20 release sertraline 50 mg tablet 50 mg PO DAILY #90 tab 03/11/20 levothyroxine 50 mcg tablet 50 mcg PO QAM #90 tab 04/30/20 glipizide 5 mg tablet 5 mg PO DAILY #90 tab 05/06/20 albuterol sulfate 0.63 mg/3 mL 0.63 mg INHALATION Q4-6H PRN #90 ml 08/23/20 solution for nebulization gabapentin 300 mg capsule 300 mg PO BID #180 cap 09/10/20 lisinopril 40 mg tablet 40 mg PO DAILY #90 tab 10/22/20 meclizine 25 mg tablet 25 mg PO DAILY PRN #30 tab 10/23/20 furosemide 40 mg tablet 60 mg PO BID #270 tab 11/28/20 apixaban 5 mg tablet (Eliquis) 5 mg PO BID #180 tab 02/05/21 folic acid 1 mg tablet 1 mg PO DAILY #90 tab 02/05/21 prednisone 10 mg tablet 10 mg PO DAILY #30 tab 02/18/21 Allergies Allergy/AdvReac Type Severity Reaction Status Date / Time atorvastatin [Lipitor] Allergy Unknown Unknown Verified 02/24/21 13:12 ciprofloxacin [From Cipro] Allergy Unknown Unknown Verified 02/24/21 13:12 ezetimibe [Zetia] Allergy Unknown unkno Verified 02/24/21 13:12 hydrochlorothiazide Allergy Unknown Unknown Verified 02/24/21 13:12 [From Avalide] Hytrin Allergy Unknown Unknown Verified 02/24/21 13:12 infliximab [From REMICADE] Allergy Unknown INFECTION Verified 02/24/21 13:12 irbesartan [From Avalide] Allergy Unknown Unknown Verified 02/24/21 13:12 metformin Allergy Unknown nausea Verified 02/24/21 13:12 nifedipine Allergy Unknown Unknown Verified 02/24/21 13:12 pravastatin Allergy Unknown stomach Verified 02/24/21 13:12 upset rosuvastatin [Crestor] Allergy Unknown Unknown Verified 02/24/21 13:12 valsartan [Diovan] Allergy Unknown Unknown Verified 02/24/21 13:12 warfarin [WARFARIN] Allergy Unknown THROAT Verified 02/24/21 13:12 SWELLING moxifloxacin [From Avelox] Allergy Unknown Verified 02/24/21 13:12 Review of Systems Review of Systems: Constitutional : No Weight loss, No Fever, No Chills, No Fatigue, + Malaise ENT/Mouth : No sore throat, No Rhinorrhea Eyes: No Eye Pain, No Swelling, No Redness Cardiovascular : + Chest Pain, + SOB, + Dyspnea on Exertion, No Orthopnea, + Edema, No Palpitations Respiratory : + Cough, + Sputum, + Wheezing Gastrointestinal : No Nausea, No Vomiting, No Diarrhea, No Constipation, No abdominal Pain, No Hematochezia, No Melena Genitourinary : No Dysuria, No Urinary Frequency, No Hematuria, Musculoskeletal : No joint pain, No Myalgias, No Joint Swelling Skin : No Skin Lesions, No rash Neuro : No Weakness, No Numbness, No Dizziness, No Headache All other systems reviewed and are negative [facility] Past Medical History Attestation statement: The following information was validated with the patient. Source: old records reviewed Medical History Atrial fibrillation Cervical radiculopathy due to degenerative joint disease of spine CHF (congestive heart failure) Conjunctivitis COPD (chronic obstructive pulmonary disease) Depression Diabetes Diastolic dysfunction with chronic heart failure Foot ulcer, right Hemorrhoids Hyperlipidemia Hypertension Laceration of skin Obesity Petechiae Physical deconditioning Recurrent pulmonary embolism Rheumatoid arthritis Venous insufficiency Family History Family History Father No problems noted. Mother No problems noted. Social History Social History Housing: House Patient Tobacco Use Status: Never used Tobacco e-Cigarette/Vaping Use: Never Used Advance Directives: Yes Advance Directives Information Provided: No Advance Directives on File: No Current occupational status: retired Physical Exam Vital Signs: Vital Signs: Last Vital Signs Temp 98.2 F 02/24/21 15:06 Pulse 82 02/24/21 16:00 Resp 28 H 02/24/21 16:00 BP 150/60 H 02/24/21 16:00 Pulse Ox 96 02/24/21 16:00 Oxygen Flow Rate 3 02/24/21 15:06 Body Mass Index 38.0 Appearance: Alert. Oriented X3. No acute distress. Eyes: Pupils equal, round and reactive to light. Neck: Normal inspection. Neck supple. CVS: Normal heart rate and rhythm. Pulses normal. Respiratory: + mild respiratory distress. + diminised breath sounds b/l to all lung luong, rhonchi and wheezing noted b/l Abdomen: Soft and nontender. Skin: Skin warm and dry. Normal skin color. Normal skin turgor. Extremities: + 2+ lower extremity pitting edema equal and b/l. No calf ttp Neuro: Oriented X 3. No motor deficit. No sensory deficit. Course Course Course Narrative: Due to patient's increased sputum production, and medical history she will be given doxycycline 100 mg IV and Rocephin 1 g. will sign out pending lab results and workup MDM - SOB/Dyspnea MDM Narrative Medical decision making narrative: 80-year-old female past medical history COPD, AFib, CHF, hypertension, diabetes presents to the emergency department with 1 week of worsening shortness of breath, requiring her to use 2 L of home oxygen. She states earlier today she went to an urgent care for these symptoms, where she was told she was saturating 87% on room air, they advised her to come to the emergency department. She states that over the past week her shortness of breath has been worsening, she also describes the chest pain is centralized and not radiating. She has been having a productive cough of white sputum over the past week, which worsened after initiation of Z-Raad and PO steroids. She is not a smoker. Upon examination she is speaking in short sentences and is evidently having trouble breathing. She is tachypneic (28 rr), and saturating 96% on 2 L. There are rhonchi and wheezes noted throughout all lung luong, lung sounds are diminished b/l. There is also 2+ pitting edema to the lower extremities, according to the patient and her family this has been increasingly worsening over the past week. Plan-EKG, CXR, CBC, Mag, VBG,BMP,COVID, Lactic, TROP,BNP, blood cultures. She will be given albuterol, furosemide 40 and methylprednisolone. ECG Data Attestation: I personally reviewed and interpreted this ECG as follows: ECG interpretation date: 02/24/21 ECG interpretation time: 15:17 Prior ECG tracings: available for review Interpretation: Rate: 83 Rhythm: Irregularly irregular atrial fibrillation [place]: Right access no discernable P waves. LEILANI variable Normal QRS complex. ST T wave : No YUNIOR or T wave inversions qTC: normal no acute ischemia The study has been interpreted contemporaneously by me. . Discharge Plan Discharge Clinical Impression: COPD (chronic obstructive pulmonary disease) Prescriptions: No Action levothyroxine 50 mcg tablet 50 mcg PO QAM Qty: 90 RF: 3 glipizide 5 mg tablet 5 mg PO DAILY Qty: 90 RF: 3 albuterol sulfate 0.63 mg/3 mL solution for nebulization 0.63 mg inhalation Q4-6H PRN (Reason: shortness of breath or wheezing) Qty: 90 RF: 3 gabapentin 300 mg capsule 300 mg PO BID Qty: 180 RF: 3 lisinopril 40 mg tablet 40 mg PO DAILY Qty: 90 RF: 3 meclizine 25 mg tablet 25 mg PO DAILY PRN (Reason: dizziness) Qty: 30 RF: 1 furosemide 40 mg tablet 60 mg PO BID Qty: 270 RF: 3 prednisone 10 mg tablet 10 mg PO DAILY Qty: 30 RF: 0 Incruse Ellipta 62.5 mcg/actuation blister with device 1 puff PO DAILY RF: 0 sulfasalazine 500 mg tablet 500 mg PO DAILY RF: 0 (DME) blood-glucose meter Kit See Rx Instructions ea Not Applicable BID Qty: 1 RF: 0 (DME) FreeStyle Lite Strips Strip See Rx Instructions ea Not Applicable BID Qty: 10 RF: 0 diltiazem HCl 240 mg capsule,ext.rel 24h degradable 240 mg PO DAILY RF: 0 budesonide-formoterol 160-4.5 mcg/actuation HFA aerosol inhaler 1 puff inhalation BID RF: 0 pantoprazole 40 mg tablet,delayed release (DR/EC) 40 mg PO DAILY Qty: 90 RF: 3 sertraline 50 mg tablet 50 mg PO DAILY Qty: 90 RF: 3 Eliquis 5 mg tablet 5 mg PO BID Qty: 180 RF: 3 folic acid 1 mg tablet 1 mg PO DAILY Qty: 90 RF: 3 ascorbic acid (vitamin C) 500 mg tablet 500 mg PO DAILY RF: 0
--- NOTE | 2021-02-24 14:54 | ECG_ITS ---
Test Reason : DYSPNEA Blood Pressure : / mmHG Vent. Rate : 083 BPM Atrial Rate : 312 BPM P-R Int : 000 ms QRS Dur : 090 ms QT Int : 396 ms P-R-T Axes : 000 152 070 degrees QTc Int : 465 ms Atrial fibrillation Right axis deviation Septal infarct , age undetermined Abnormal ECG When compared with ECG of 04-SEP-2008 13:50, Atrial fibrillation has replaced Sinus rhythm QRS axis Shifted right Septal infarct is now Present Referred By: Kriss Hendrickson Electronically Signed By:BHAKTI SEVILLA
[2021-02-24 15:06] VITALS: BP 152/72; BP 153/72; PULSE 76; PULSE 82; RESP 30; TEMP 36.8; O2SAT 85; O2SAT 96; BMI 38.0
[2021-02-24] MEDS: Albuterol Sulfate (0.083%) 2.5 MG/3 ML VIAL.NEB INHALE (15:41)
[2021-02-24 15:43] VITALS: PULSE 88; O2SAT 91
--- NOTE | 2021-02-24 15:52 | PHA.MEDREC ---
Pharmacy Consult ? Medication Reconciliation Pharmacy has completed the medication reconciliation. Patient is on a prednisone taper. they started the 30 mg dose x4 days on 02/23/21. There was a bit of confusion about her blood thinner as they had Jantoven written on her med list. But the pt has filled Apixaban. The pt says she is definitely on the med that she picked up last week which was apixaban 5 mg po bid. The pt says they do not get INRs either, to further confirm she takes apixaban instead of jantoven
[2021-02-24 16:00] VITALS: BP 150/60; PULSE 82; RESP 28; O2SAT 96
[2021-02-24 16:27] LABS: Eosinophils Percent Auto 0.2 % (0-4); Hematocrit 43.7 % (37-47); Hemoglobin 13.7 g/dl (12.0-16.0); Imm Gran Abs Auto 0.02 X10*3/uL (0.00-0.03); Imm Gran Pct Auto 0.4 % (0.0-0.4); Lymphocytes Absolute Auto 1.3 X10*3/uL (1.2-4.9); Lymphocytes Percent Auto 26.9 % (20-40); MANUAL DIFF FLAG SCAN; Mean Corpuscular HGB Conc 31.4 g/dl (31.0-35.0); Mean Corpuscular Hemoglobin 30.5 pg (27.0-33.0); Mean Corpuscular Volume 97.3 fL (80-98); Mean Platelet Volume 11.1 fL (9.4-12.3); Monocytes Absolute Auto 0.4 X10*3/uL (0.1-1.2); Monocytes Percent Auto 8.3 % (2-11); Neutrophils Absolute Auto 3.2 X10*3/uL (2.0-8.3); Neutrophils Percent Auto 64.2 % (45-73); Platelet Count 187 X10*3/uL (160-400); Red Blood Count 4.49 X10*6/uL (4.20-5.50); Red Cell Distribution Width 12.9 % (11.0-16.0); SCAN SMEAR FLAG 1
[2021-02-24 16:30] LABS: VBG HCO3 39 mmol/L (22-26); VBG pCO2 64 mmHg; VBG pH 7.38 (7.32-7.43); VBG pO2 44 mmHg
[2021-02-24 16:35] LABS: Venous Blood Gas Refer to POC result
[2021-02-24] MEDS: Doxycycline Hyclate 100 MG in 0.9 % Sodium Chloride 250 ML 166.67 MG IV (16:37)
[2021-02-24] MEDS: Furosemide 40 MG/4 ML VIAL IVPUSH ×2 (16:37→19:52)
[2021-02-24] MEDS: cefTRIAXone sodium 1 GM in 0.9 % Sodium Chloride 50 ML IV (16:37)
[2021-02-24] MEDS: methylPREDNISolone Sod Succ 125 MG/2 ML VIAL IVPUSH (16:37)
[2021-02-24 16:39] LABS: Lactic Acid 1.1 mmol/L (0.5-2.0)
[2021-02-24 16:45] LABS: Alanine Aminotransferase 39 U/L (0-31); Albumin Level 3.9 g/dL (3.5-5.0); Alkaline Phosphatase 79 U/L (39-117); Anion Gap 13 (12-20); Aspartate Amino Transferase 39 U/L (5-31); Bilirubin Direct 0.3 mg/dL (0.0-0.5); Bilirubin Total 0.7 mg/dL (0.0-1.0); Blood Urea Nitrogen 25 mg/dL (9-16); Calcium 9.2 mg/dL (8.4-10.2); Carbon Dioxide 36 mmol/L (22-29); Chloride 99 mmol/L (96-108); Creatinine Clr Calc Pharmacy 62.3; Estimated Glomerular Filt Rate > 60; Glucose Random 105 mg/dL (60-115); Magnesium 2.2 mg/dL (1.6-2.6); Potassium 3.7 mmol/L (3.3-5.1); Sodium 144 mmol/L (135-145); Total Protein 7.5 g/dL (6.5-8.0)
[2021-02-24 16:46] LABS: SLIDE REVIEW VERIFIED
[2021-02-24 16:48] LABS: B Type Natriuretic Peptide 119 pg/mL (<100)
[2021-02-24 16:54] LABS: COVID-19 Test Positive (Negative)
--- NOTE | 2021-02-24 17:11 | PC.NURSE ---
PT WITH O2 NEED COVID + LABS DONE ABX GIVEN ORDERED. PT ON 4L FIO2
--- NOTE | 2021-02-24 17:13 | PC.NURSE ---
DR GARZA AWARE OF PT RESP STATUS, RR 34-38 WITH AUTO PEEP.
[2021-02-24 17:28] VITALS: BP 149/84; PULSE 90; RESP 35; TEMP 36.6; O2SAT 92
--- NOTE | 2021-02-24 17:28 | PM.IMHP ---
History of Present Illness Date of Service: 02/24/21 Chief Complaint: sob 80-year-old female presented with 1 week of shortness of breath and fevers. Patient has chronic shortness of breath due to moderate persistent asthma, chronic diastolic CHF, obesity hypoventilation. She has an oxygen concentrator at home from a previous pulmonary embolism, but does not on home O2 and was most recently tested at [facility] in October of 2020 and did not require. She has been complaining of 1 week worsening shortness of breath and fevers 100 degrees F, denies chills or myalgias, denies sick contacts. She was given antibiotics and prednisone for presumed bronchitis. She reports positive orthopnea, she states her lower extremity edema is chronic and unchanged. In ED patient found to be significantly hypoxic down to the 70s on ambulation, chest x-ray showed bilateral opacities, COVID positive, patient is vaccinated. Review of Systems Review of Systems: Constitutional: Fevers, no chills Eyes: denies blurry vision ENT: denies sore throat CVS: denies chest pain Respiratory: Dyspnea GI: no abdominal pain : denies dysuria MSK: denies neck pain Skin: denies rash Neuro: denies specific motor weakness Psych: denies suicidal ideation Endocrine: denies heat/cold intolerance Hematologic: denies easy bleeding Allergy: denies hives [facility] Medical History (Updated 02/24/21 @ 17:33 by Ham Sanchez MD) Atrial fibrillation Cervical radiculopathy due to degenerative joint disease of spine Conjunctivitis COPD (chronic obstructive pulmonary disease) Depression Diabetes Diastolic dysfunction with chronic heart failure Foot ulcer, right Hemorrhoids Hyperlipidemia Hypertension Laceration of skin Moderate persistent asthma Obesity Petechiae Physical deconditioning Recurrent pulmonary embolism Rheumatoid arthritis Venous insufficiency Family History Father No problems noted. Mother No problems noted. Pertinent family history: mother cad Social History (Updated 02/24/21 @ 17:33 by Ham Sanchez MD) Housing: House Alcohol intake: never Patient Tobacco Use Status: Never used Tobacco e-Cigarette/Vaping Use: Never Used Use of substances other than those prescribed or required for medical reasons: No Advance Directives: Yes Advance Directives Information Provided: No Advance Directives on File: No Current occupational status: retired Meds Allergies Allergy/AdvReac Type Severity Reaction Status Date / Time atorvastatin [Lipitor] Allergy Unknown Unknown Verified 02/24/21 13:12 ciprofloxacin [From Cipro] Allergy Unknown Unknown Verified 02/24/21 13:12 ezetimibe [Zetia] Allergy Unknown unkno Verified 02/24/21 13:12 hydrochlorothiazide Allergy Unknown Unknown Verified 02/24/21 13:12 [From Avalide] Hytrin Allergy Unknown Unknown Verified 02/24/21 13:12 infliximab [From REMICADE] Allergy Unknown INFECTION Verified 02/24/21 13:12 irbesartan [From Avalide] Allergy Unknown Unknown Verified 02/24/21 13:12 metformin Allergy Unknown nausea Verified 02/24/21 13:12 nifedipine Allergy Unknown Unknown Verified 02/24/21 13:12 pravastatin Allergy Unknown stomach Verified 02/24/21 13:12 upset rosuvastatin [Crestor] Allergy Unknown Unknown Verified 02/24/21 13:12 valsartan [Diovan] Allergy Unknown Unknown Verified 02/24/21 13:12 warfarin [WARFARIN] Allergy Unknown THROAT Verified 02/24/21 13:12 SWELLING moxifloxacin [From Avelox] Allergy Unknown Verified 02/24/21 13:12 Active Medications: Current Medications Acetaminophen (Acetaminophen 325 Mg Tablet) 650 mg PO Q6H PRN PRN Reason: Pain, Mild (Pain Scale 1-3) Apixaban (Apixaban 5 Mg Tablet) 5 mg PO BID [facility] Ascorbic Acid (Ascorbic Acid 500 Mg Tablet) 500 mg PO DAILY [facility] Dextrose (Dextrose 50 % 25 Gm/50 Ml Vial) 25 gm IVPUSH Q15M PRN; Protocol PRN Reason: per Hypoglycemia Standing Ord. Diltiazem HCl (Diltiazem Hcl Cd 240 Mg Cap.Er.Deg) 240 mg PO DAILY [facility]; Protocol Fenofibrate (Fenofibrate 160 Mg Tablet) 160 mg PO DAILY [facility] Folic Acid (Folic Acid 1 Mg Tablet) 1 mg PO DAILY [facility] Furosemide (Furosemide 40 Mg/4 Ml Vial) 40 mg IVPUSH BID@0900,1800 [facility]; Protocol Gabapentin (Gabapentin 300 Mg Capsule) 300 mg PO BID [facility] Glucose (Glucose Gel 15 Gm Gel..Gram.) 15 gm PO Q15M PRN; Protocol PRN Reason: per Hypoglycemia Standing Ord. Doxycycline Hyclate 100 mg/ (Sodium Chloride) 250 mls @ 166.67 mls/hr IV ONCE ONE Stop: 02/24/21 17:38 Last Admin: 02/24/21 16:37 Dose: 166.67 mls/hr Documented by: Insulin Glargine (Insulin Glargine,Hum.Rec.Anlog 100 Unit/Ml 10 Ml Vial) 10 unit SUBCUT BEDTIME [facility] Insulin Human Lispro (Insulin Lispro 100 Unit/Ml 3 Ml Vial) 0 unit SUBCUT QIDACHS [facility]; Protocol Insulin Human Lispro (Insulin Lispro 100 Unit/Ml 3 Ml Vial) 5 unit SUBCUT TIDAC [facility] Levothyroxine Sodium (Levothyroxine Sodium 50 Mcg Tablet) 50 mcg PO QAM [facility] Lisinopril (Lisinopril 40 Mg Tablet) 40 mg PO DAILY [facility]; Protocol Methylprednisolone Sodium Succinate (Methylprednisolone Sod Succ 125 Mg/2 Ml Vial) 60 mg IVPUSH Q12H [facility] Non-Formulary Medication (Budesonide-Formoterol) 1 puff INHALE BID [facility] Non-Formulary Medication (Pantoprazole) 40 mg PO DAILY [facility] Pharmacy Consult (Consult Rx Perform Med Rec) 1 each MISCELLANE ONCE PRN PRN Reason: Consult order Sertraline HCl (Sertraline Hcl 50 Mg Tablet) 50 mg PO DAILY [facility] Sodium Chloride (0.9 % Sodium Chloride Flush 3 Ml Syringe) 3 ml IVFLUSH QSHIFT [facility] Sulfasalazine (Sulfasalazine 500 Mg Tablet) 500 mg PO DAILY [facility] Home Medications Medication Instructions Recorded Confirmed Last Taken Type blood sugar diagnostic #10 ea 03/11/20 02/18/21 Unknown History blood-glucose meter #1 ea 03/11/20 02/18/21 Unknown History budesonide-formoterol HFA 160 1 puff INHALATION BID 03/11/20 02/24/21 Unknown History mcg-4.5 mcg/actuation aerosol inhaler diltiazem HCl 240 mg 240 mg PO DAILY 03/11/20 02/24/21 Unknown History capsule,extended release 24 hr, controlled ascorbic acid (vitamin C) 500 mg 500 mg PO DAILY 10/14/20 02/24/21 Unknown History tablet sulfasalazine 500 mg tablet 500 mg PO DAILY 02/24/21 02/24/21 Unknown History umeclidinium 62.5 mcg/actuation 1 puff PO DAILY 02/24/21 02/24/21 Unknown History blister powder for inhalation (Incruse Ellipta) Physical Exam Vital Signs and Narrative: Vital Signs: Last Vital Signs Temp 98.2 F 02/24/21 15:06 Pulse 82 02/24/21 16:00 Resp 28 H 02/24/21 16:00 BP 150/60 H 02/24/21 16:00 Pulse Ox 96 02/24/21 16:00 Oxygen Flow Rate 3 02/24/21 15:06 Body Mass Index 38.0 General: use of some accessory muscles, though able to talk full sentences HEENT: atraumatic Neck: normal to visual inspection CVS: S1, S2, RRR Resp: Crackles, diminished Chest: non tender GI: soft, non tender, non distended : no CVA tenderness Skin: foot ulcer Extremities: 3_ bilateral edema Neuro: Oriented X3, grossly intact Psych: cooperative Results Labs CBC and Chem 7: 02/24/21 16:18 02/24/21 16:19 Labs: Laboratory Results - last 24 hr 02/24/21 02/24/21 02/24/21 16:17 16:17 16:18 MCV 97.3 MCH 30.5 MCHC 31.4 RDW 12.9 Plt Count 187 MPV 11.1 Immature Gran % (Auto) 0.4 Neut % (Auto) 64.2 Lymph % (Auto) 26.9 [place] % (Auto) 8.3 Eos % (Auto) 0.2 Baso % (Auto) 0.0 Lymph # (Auto) 1.3 [place] # (Auto) 0.4 Eos # (Auto) 0.0 Baso # (Auto) 0.0 Abs Immat Gran (auto) 0.02 Absolute Neuts (auto) 3.2 Absolute Nucleated RBC 0.000 Nucleated RBC % (auto) 0.0 Smear Tech's Comments VERIFIED VBG pH VBG pCO2 VBG pO2 VBG HCO3 VBG O2 Saturation VBG Base Excess Anion Gap Estim Creat Clear Calc Estimated GFR Random Glucose Lactic Acid 1.1 Calcium Magnesium Total Bilirubin Direct Bilirubin AST ALT Alkaline Phosphatase B-Natriuretic Peptide 119 H Total Protein Albumin COVID-19 (YASIR) COVID-19 Clin Com 02/24/21 02/24/21 02/24/21 16:18 16:19 16:25 MCV MCH MCHC RDW Plt Count MPV Immature Gran % (Auto) Neut % (Auto) Lymph % (Auto) [place] % (Auto) Eos % (Auto) Baso % (Auto) Lymph # (Auto) [place] # (Auto) Eos # (Auto) Baso # (Auto) Abs Immat Gran (auto) Absolute Neuts (auto) Absolute Nucleated RBC Nucleated RBC % (auto) Smear Tech's Comments VBG pH 7.38 VBG pCO2 64 VBG pO2 44 VBG HCO3 39 H VBG O2 Saturation 66.0 VBG Base Excess 11.0 Anion Gap 13 Estim Creat Clear Calc 62.3 Estimated GFR > 60 Random Glucose 105 Lactic Acid Calcium 9.2 D Magnesium 2.2 Total Bilirubin 0.7 Direct Bilirubin 0.3 AST 39 H D ALT 39 H Alkaline Phosphatase 79 B-Natriuretic Peptide Total Protein 7.5 Albumin 3.9 COVID-19 (YASIR) Positive A COVID-19 Clin Com See Note Imaging Radiologist's Impressions: Impressions Chest X-Ray 02/24/21 14:55 IMPRESSION: No change in bilateral patchy infiltrates and mild cardiac likely. Assessment and Plan (1) COVID-19: Status: Acute (2) Acute respiratory failure with hypoxia: Status: Acute (3) Obesity: Status: Acute (4) Atrial fibrillation: Status: Acute (5) Diabetes: Status: Acute 80F presented with sob, found to have covid Acute hypoxic respiratory failure secondary to COVID pneumonia in patient with moderate persistent asthma O2 support, wean as tolerated, monitor inflammatory markers, steroids High risk due to comorbidities of morbid obesity, diabetes Acute on chronic diastolic CHF IV Lasix, monitor electrolytes Check echo Permanent atrial fibrillation Cardizem, apixaban Hypertension Lisinopril, Cardizem Rheumatoid arthritis Sulfasalazine Hypothyroid Synthroid History of recurrent pulmonary embolism Continue Eliquis DVT prophylaxis, on Eliquis Full code Quality Stroke Does the patient have a stroke diagnosis?: No VTE Prior VTE?: Yes VTE Risk Level:: Medical - moderate - high VTE Device Contraindication: Treatment Not Indicated VTE Drug Contraindication: N/A - Med Ordered
--- NOTE | 2021-02-24 18:15 | PC.NURSE ---
UPDATED THE PT DAUGHTER ON THE PLAN AND BEDSTATUS
[2021-02-24 18:19] LABS: Glucose, Whole Blood 125 mg/dL (60-115)
--- NOTE | 2021-02-24 18:19 | PC.NURSE ---
RERPORT GIVEN TO RENATE RAZO
[2021-02-24 19:30] VITALS: BP 158/81; PULSE 94; RESP 22; TEMP 36.7; O2SAT 94
[2021-02-24 20:06] LABS: Glucose, Whole Blood 166 mg/dL (60-115)
[2021-02-24] MEDS: Insulin Glargine,Hum.rec.anlog 100 UNIT/ML 10 ML VIAL 10 UNIT SUBCUT (21:30)
[2021-02-24] MEDS: methylPREDNISolone Sod Succ 125 MG/2 ML VIAL 60 MG IVPUSH (21:31)
[2021-02-24] MEDS: Insulin Lispro 100 UNIT/ML 3 ML VIAL SUBCUT (21:31)
[2021-02-24] MEDS: Apixaban 5 MG TABLET PO (22:13)
[2021-02-24] MEDS: Gabapentin 300 MG CAPSULE PO (22:13)
[2021-02-24] MEDS: ondansetron HCL 4 MG/2 ML VIAL IVPUSH (22:13)
[2021-02-24 23:50] VITALS: BP 158/77; PULSE 100; RESP 18; TEMP 36.8; O2SAT 98
[2021-02-24 23:53] LABS: Troponin-I High Sensitivity 17.2 ng/L (<3.5-17.0)
[2021-02-25] VITALS (7 sets, daily range): BP systolic 139–164; BP diastolic 63–92; PULSE 80–107; RESP 19–20; TEMP 36.3–36.6; O2SAT 91–96
[2021-02-25] MEDS: Levothyroxine Sodium 50 MCG TABLET PO (05:21)
[2021-02-25 06:51] LABS: Hematocrit 45.5 % (37-47); Hemoglobin 14.1 g/dl (12.0-16.0); Mean Corpuscular Hemoglobin 30.5 pg (27.0-33.0); Mean Corpuscular Volume 98.3 fL (80-98); Mean Platelet Volume 11.6 fL (9.4-12.3); Platelet Count 211 X10*3/uL (160-400); Red Blood Count 4.63 X10*6/uL (4.20-5.50); Red Cell Distribution Width 12.9 % (11.0-16.0); White Blood Count 3.6 X10*3/uL (4.8-10.8)
[2021-02-25 07:28] LABS: Glucose, Whole Blood 194 mg/dL (60-115)
[2021-02-25 07:32] LABS: Blood Urea Nitrogen 28 mg/dL (9-16); C Reactive Protein 10.42 mg/dL (< or = 0.50); Calcium 9.1 mg/dL (8.4-10.2); Creatinine Clr Calc Pharmacy 60.3; Estimated Glomerular Filt Rate > 60; Glucose Fasting 190 mg/dL (60-99); Lactate Dehydrogenase 278 U/L (122-220)
[2021-02-25 07:43] LABS: Anion Gap 16 (12-20); Carbon Dioxide 32 mmol/L (22-29); Chloride 100 mmol/L (96-108); Potassium 4.6 mmol/L (3.3-5.1); Sodium 143 mmol/L (135-145)
[2021-02-25] MEDS: Fluticasone/Vilanterol 200/25 BLST.W.DEV 1 PUFF INHALE (07:49)
--- NOTE | 2021-02-25 08:00 | CA_ITS ---
Transthoracic Echocardiogram Patient (Last, First, Middle): Camille Andrade, Gender: Female Date of : 1940 Age: 80 Procedure Date: 02/25/2021 Procedure Type: Transthoracic Echocardiogram Location: [facility] – [place] Height: 167.64 cm Weight: 106.6 kg BSA: 2.14 m2 Heart Rate: bpm BP: 164 / 92 mmHg Commodities Clerk: Referring MD: Ham Sanchez MD Symptoms: chf Study Quality: Fair ECG Rhythm: Undetermined Conclusions: - The left ventricular systolic function is hyperdynamic. The visually estimated ejection fraction is >70%. - There is severely increased left ventricular wall thickness. - The left atrium is severely dilated. - There is moderate mitral annular calcification. Mean gradient across the mitral valve 4mmHg at 77/min; probably early mitral stenosis. - There is mild dilatation of the ascending aorta measuring 4.30 cm. Findings Left Ventricle Normal left ventricular cavity size. There is severely increased left ventricular wall thickness. The left ventricular systolic function is hyperdynamic. The visually estimated ejection fraction is >70%. Diastolic function is indeterminate on the basis of available data. E/E prime ratio is >15, consistent with elevated filling pressures. Right Ventricle The right ventricle was not well visualized. Normal right ventricular cavity size. Likely normal function. Atria The left atrium is severely dilated. The right atrium is normal in size. Aortic Valve The aortic valve was not well visualized. There is mild calcification of the aortic valve. There is no aortic valve stenosis. There is no aortic valve regurgitation. Mitral Valve There is moderate mitral annular calcification. There is trace mitral valve regurgitation. Mean gradient across the mitral valve 4mmHg at 77/min; probably early mitral stenosis. Pulmonic Valve The pulmonic valve was not well visualized. Tricuspid Valve The tricuspid valve was not well visualized. There is mild tricuspid valve regurgitation. The pulmonary artery systolic pressure is normal. Great Vessels There is mild dilatation of the ascending aorta measuring 4.30 cm. Venous The inferior vena cava is dilated and collapses greater than 50% with inspiration. Pericardium/Pleural There is no evidence of pericardial effusion. Prior Study Comparison Changes noted compared to prior study dated: 10/22/2017. LVH more prominent. Due to limited study quality, difficult to compare. Measurements 2D Linear Measurements IVSd: 1.60 0.6-0.9/0.6-1.0 cm LVIDd: 4.70 3.9-5.3/4.2-5.9 cm LVIDd Index: 2.20 2.4-3.2/2.2-3.1 cm/m2 LVIDs: 2.92 2.0-3.6 cm LVPWd: 1.62 0.7-1.1 cm Ao Root: 3.30 2.1-3.5 cm LA Diam: 4.70 2.7-3.8/3.0-4.0 cm LAIDs Index: 2.20 1.5-2.3 cm/m2 LV Mass: 408.69 67-162/88-224 g LV Mass Index: 190.98 43-95/49-115 g/m2 LVOT Diam: 2.10 3.0+(-)1.3 cm 2D Systolic Function EF 4C: 72.10 >55% EF 2C: 63.20 >55% EF BiP: 68.30 >55% Mitral Valve MV VTI: 0.41 MV Pk Malik: 1.58 MV Mn Malik: 0.89 MV Pk Grad: 10.00 MV Mn Grad: 4.00 MV Pk E: 1.47 MV Decel Time: 338.00 E'Lateral: 9.46 E'Medial: 4.57 E/E' Med: 32.20 E/E' Lat: 15.50 PHT: 99.00 MVA PHT: 2.22 MVA Continuity: 1.62 Decel [place]: 4.34 Aortic Valve AoV Pk Malik: 1.63 AoV Mn Malik: 1.05 AoV VTI: 0.33 AoV Pk Grad: 11.00 Aov Mn Grad: 5.00 EMBER Cont.VTI: 2.00 LVOT LVOT Pk Malik: 0.85 LVOT Mn Malik: 0.61 LVOT VTI: 0.19 LVOT Pk Grad: 3.00 LVOT Mn Grad: 2.00 LVOT Diam: 2.10 LVOT Area: 3.46 Diastolic Function MV Pk E: 1.47 E'Medial: 4.57 E/E' Med: 32.20 E' Laterial: 9.46 E/E' Lat: 15.50 Right Ventricle TVS' Malik: 11.00 Tricuspid Valve TR Pk Malik: 2.47 TR Pk Grad: 24.00 RA Press: 8.00 RVSP: 32.00 Great Vessels Aorta Ao Root-2D: 3.30 2.0-3.7 cm Ao Asc: 4.30 2.1-3.4 cm Pulmonary Valve PV Pk Mailk: 1.29 Peak PV Grad: 7.00 Updated in Other Vendor System with Status of Final Yaya Riddle MD electronically signed on 02/25/2021 4:18:35 PM with status of Final
[2021-02-25] MEDS: 0.9 % Sodium Chloride Flush 3 ML SYRINGE IVFLUSH ×3 (08:06→21:00)
[2021-02-25] MEDS: Insulin Lispro 100 UNIT/ML 3 ML VIAL SUBCUT ×7 (08:06→21:00)
[2021-02-25] MEDS: dilTIAZem HCL CD 240 MG CAP.ER.DEG PO (08:08)
[2021-02-25] MEDS: Furosemide 40 MG/4 ML VIAL IVPUSH (08:08)
[2021-02-25] MEDS: lisinopriL 40 MG TABLET PO (08:08)
[2021-02-25] MEDS: Fenofibrate 160 MG TABLET PO (08:08)
[2021-02-25] MEDS: Folic Acid 1 MG TABLET PO (08:08)
[2021-02-25] MEDS: Gabapentin 300 MG CAPSULE PO ×2 (08:09→20:59)
[2021-02-25] MEDS: Sertraline HCL 50 MG TABLET PO (08:09)
[2021-02-25] MEDS: sulfaSALAzine 500 MG TABLET PO (08:09)
[2021-02-25] MEDS: Omeprazole 20 MG CAPSULE.DR PO (08:09)
[2021-02-25] MEDS: Apixaban 5 MG TABLET PO ×2 (08:09→20:59)
[2021-02-25] MEDS: Ascorbic Acid 500 MG TABLET PO (08:09)
[2021-02-25] MEDS: methylPREDNISolone Sod Succ 125 MG/2 ML VIAL 60 MG IVPUSH ×2 (08:19→21:01)
--- NOTE | 2021-02-25 10:26 | P.PNIM_ITS ---
Subjective Subjective Date of Service: 02/25/21 Interval History: cc: sob interval history: some improvement in sob, still very weak, sob on minimal exertion Cardiovascular Cardiovascular: Reports no additional cardiovascular complaints Respiratory Respiratory: Reports no additional respiratory complaints Physical Exam Vital Signs: Vital Signs: Last Vital Signs Temp 97.4 F 02/25/21 07:54 Pulse 88 02/25/21 08:08 Resp 20 02/25/21 07:54 BP 159/72 H 02/25/21 08:08 Pulse Ox 92 02/25/21 07:54 Oxygen Flow Rate 3 02/24/21 15:06 Body Mass Index 38.0 General: AO X 3, no acute distress Resp: diminihshed, crackles CVS: S1,S2,irregular, 1-2+ edema bilateral GI: soft, non tender, non distended Neuro: motor grossly intact, alert Psych: appropriate affect, appropriate insight Objective Data Active Medications Acetaminophen (Acetaminophen 325 Mg Tablet) 650 mg PO Q6H PRN PRN Reason: Pain, Mild (Pain Scale 1-3) Albuterol Sulfate (Albuterol Sulfate 90 Mcg 8 Gm Inhaler) 2 puff INHALE Q4H PRN PRN Reason: sob Apixaban (Apixaban 5 Mg Tablet) 5 mg PO BID [facility] Last Admin: 02/25/21 08:09 Dose: 5 mg Documented by: LIS Ascorbic Acid (Ascorbic Acid 500 Mg Tablet) 500 mg PO DAILY [facility] Last Admin: 02/25/21 08:09 Dose: 500 mg Documented by: LIS Dextrose (Dextrose 50 % 25 Gm/50 Ml Vial) 25 gm IVPUSH Q15M PRN; Protocol PRN Reason: per Hypoglycemia Standing Ord. Diltiazem HCl (Diltiazem Hcl Cd 240 Mg Cap.Er.Deg) 240 mg PO DAILY [facility]; Protocol Last Admin: 02/25/21 08:08 Dose: 240 mg Documented by: LIS Fenofibrate (Fenofibrate 160 Mg Tablet) 160 mg PO DAILY [facility] Last Admin: 02/25/21 08:08 Dose: 160 mg Documented by: LIS Fluticasone/Vilanterol (Fluticasone/Vilanterol 200/25 Blst.W.Dev) 1 puff INHALE DAILY [facility] Last Admin: 02/25/21 07:49 Dose: 1 puff Documented by: EMILIANA Folic Acid (Folic Acid 1 Mg Tablet) 1 mg PO DAILY [facility] Last Admin: 02/25/21 08:08 Dose: 1 mg Documented by: LIS Furosemide (Furosemide 20 Mg Tablet) 60 mg PO BID [facility]; Protocol Last Admin: 02/25/21 09:03 Dose: Not Given Documented by: LIS Non-Admin Reason: Administered by Alternate Route Gabapentin (Gabapentin 300 Mg Capsule) 300 mg PO BID [facility] Last Admin: 02/25/21 08:09 Dose: 300 mg Documented by: LIS Glucose (Glucose Gel 15 Gm Gel..Gram.) 15 gm PO Q15M PRN; Protocol PRN Reason: per Hypoglycemia Standing Ord. Insulin Glargine (Insulin Glargine,Hum.Rec.Anlog 100 Unit/Ml 10 Ml Vial) 10 unit SUBCUT BEDTIME [facility] Last Admin: 02/24/21 21:30 Dose: 10 unit Documented by: KENAN Insulin Human Lispro (Insulin Lispro 100 Unit/Ml 3 Ml Vial) 0 unit SUBCUT QIDACHS [facility]; Protocol Last Admin: 02/25/21 08:06 Dose: 2 unit Documented by: LIS Insulin Human Lispro (Insulin Lispro 100 Unit/Ml 3 Ml Vial) 5 unit SUBCUT TIDAC [facility] Last Admin: 02/25/21 08:08 Dose: 5 unit Documented by: LIS Levothyroxine Sodium (Levothyroxine Sodium 50 Mcg Tablet) 50 mcg PO DAILY@0630 [facility] Last Admin: 02/25/21 05:21 Dose: 50 mcg Documented by: KENAN Lisinopril (Lisinopril 40 Mg Tablet) 40 mg PO DAILY [facility]; Protocol Last Admin: 02/25/21 08:08 Dose: 40 mg Documented by: LIS Methylprednisolone Sodium Succinate (Methylprednisolone Sod Succ 125 Mg/2 Ml Vial) 60 mg IVPUSH Q12H [facility] Last Admin: 02/25/21 08:19 Dose: 60 mg Documented by: LIS Omeprazole (Omeprazole 20 Mg Capsule.Dr) 20 mg PO DAILY [facility] Last Admin: 02/25/21 08:09 Dose: 20 mg Documented by: LIS Pharmacy Consult (Consult Rx Perform Med Rec) 1 each MISCELLANE ONCE PRN PRN Reason: Consult order Sertraline HCl (Sertraline Hcl 50 Mg Tablet) 50 mg PO DAILY [facility] Last Admin: 02/25/21 08:09 Dose: 50 mg Documented by: LIS Sodium Chloride (0.9 % Sodium Chloride Flush 3 Ml Syringe) 3 ml IVFLUSH QSHIFT [facility] Last Admin: 02/25/21 08:06 Dose: 3 ml Documented by: LIS Sulfasalazine (Sulfasalazine 500 Mg Tablet) 500 mg PO DAILY [facility] Last Admin: 02/25/21 08:09 Dose: 500 mg Documented by: LIS Labs CBC & Chem 7: 02/25/21 05:49 02/25/21 05:49 Labs: Laboratory Results - last 24 hr 02/24/21 02/24/21 02/24/21 16:17 16:17 16:18 MCV 97.3 MCH 30.5 MCHC 31.4 RDW 12.9 Plt Count 187 MPV 11.1 Immature Gran % (Auto) 0.4 Neut % (Auto) 64.2 Lymph % (Auto) 26.9 Todd % (Auto) 8.3 Eos % (Auto) 0.2 Baso % (Auto) 0.0 Lymph # (Auto) 1.3 Todd # (Auto) 0.4 Eos # (Auto) 0.0 Baso # (Auto) 0.0 Abs Immat Gran (auto) 0.02 Absolute Neuts (auto) 3.2 Absolute Nucleated RBC 0.000 Nucleated RBC % (auto) 0.0 Smear Tech's Comments VERIFIED VBG pH VBG pCO2 VBG pO2 VBG HCO3 VBG O2 Saturation VBG Base Excess Anion Gap Estim Creat Clear Calc Estimated GFR POC Glucose Random Glucose Fasting Glucose Lactic Acid 1.1 Calcium Magnesium Total Bilirubin Direct Bilirubin AST ALT Alkaline Phosphatase Lactate Dehydrogenase Troponin I High Sens 17.2 H* C-Reactive Protein B-Natriuretic Peptide 119 H Total Protein Albumin COVID-19 (YASIR) COVID-19 Clin Com 02/24/21 02/24/21 02/24/21 16:18 16:19 16:25 MCV MCH MCHC RDW Plt Count MPV Immature Gran % (Auto) Neut % (Auto) Lymph % (Auto) Todd % (Auto) Eos % (Auto) Baso % (Auto) Lymph # (Auto) Todd # (Auto) Eos # (Auto) Baso # (Auto) Abs Immat Gran (auto) Absolute Neuts (auto) Absolute Nucleated RBC Nucleated RBC % (auto) Smear Tech's Comments VBG pH 7.38 VBG pCO2 64 VBG pO2 44 VBG HCO3 39 H VBG O2 Saturation 66.0 VBG Base Excess 11.0 Anion Gap 13 Estim Creat Clear Calc 62.3 Estimated GFR > 60 POC Glucose Random Glucose 105 Fasting Glucose Lactic Acid Calcium 9.2 D Magnesium 2.2 Total Bilirubin 0.7 Direct Bilirubin 0.3 AST 39 H D ALT 39 H Alkaline Phosphatase 79 Lactate Dehydrogenase Troponin I High Sens C-Reactive Protein B-Natriuretic Peptide Total Protein 7.5 Albumin 3.9 COVID-19 (YASIR) Positive A COVID-19 [employer] See Note 02/24/21 02/24/21 02/25/21 18:14 20:02 05:49 MCV 98.3 H MCH 30.5 MCHC 31.0 RDW 12.9 Plt Count 211 MPV 11.6 Immature Gran % (Auto) Neut % (Auto) Lymph % (Auto) Todd % (Auto) Eos % (Auto) Baso % (Auto) Lymph # (Auto) Todd # (Auto) Eos # (Auto) Baso # (Auto) Abs Immat Gran (auto) Absolute Neuts (auto) Absolute Nucleated RBC 0.000 Nucleated RBC % (auto) 0.0 Smear Tech's Comments VBG pH VBG pCO2 VBG pO2 VBG HCO3 VBG O2 Saturation VBG Base Excess Anion Gap Estim Creat Clear Calc Estimated GFR POC Glucose 125 H 166 H Random Glucose Fasting Glucose Lactic Acid Calcium Magnesium Total Bilirubin Direct Bilirubin AST ALT Alkaline Phosphatase Lactate Dehydrogenase Troponin I High Sens C-Reactive Protein B-Natriuretic Peptide Total Protein Albumin COVID-19 (YASIR) COVID-Endra 02/25/21 02/25/21 05:49 07:24 MCV MCH MCHC RDW Plt Count MPV Immature Gran % (Auto) Neut % (Auto) Lymph % (Auto) Todd % (Auto) Eos % (Auto) Baso % (Auto) Lymph # (Auto) Todd # (Auto) Eos # (Auto) Baso # (Auto) Abs Immat Gran (auto) Absolute Neuts (auto) Absolute Nucleated RBC Nucleated RBC % (auto) Smear Tech's Comments VBG pH VBG pCO2 VBG pO2 VBG HCO3 VBG O2 Saturation VBG Base Excess Anion Gap 16 Estim Creat Clear Calc 60.3 Estimated GFR > 60 POC Glucose 194 H Random Glucose Fasting Glucose 190 H Lactic Acid Calcium 9.1 Magnesium Total Bilirubin Direct Bilirubin AST ALT Alkaline Phosphatase Lactate Dehydrogenase 278 H Troponin I High Sens C-Reactive Protein 10.42 H B-Natriuretic Peptide Total Protein Albumin COVID-19 (YASIR) COVID-19 Clin Com Assessment and Plan (1) Acute respiratory failure with hypoxia: Status: Acute (2) Moderate persistent asthma: Status: Acute (3) COVID-19: Status: Acute (4) Diabetes: Status: Acute Assessment and Plan: 80F presented with sob, found to have covid Acute hypoxic respiratory failure secondary to COVID pneumonia in patient with moderate persistent asthma continue O2 support, wean as tolerated, monitor inflammatory markers, steroids High risk due to comorbidities of morbid obesity, diabetes Acute on chronic diastolic CHF diuresed well, will change back to po lasix monitor electrolytes follow up echo Permanent atrial fibrillation Cardizem, apixaban Hypertension Lisinopril, Cardizem Rheumatoid arthritis Sulfasalazine Hypothyroid Synthroid History of recurrent pulmonary embolism Continue Eliquis DVT prophylaxis, on Eliquis Full code Quality Stroke Does the patient have a stroke diagnosis?: No VTE Prior VTE?: Yes VTE Risk Level:: Medical - moderate - high VTE Device Contraindication: Treatment Not Indicated VTE Drug Contraindication: N/A - Med Ordered
[2021-02-25 11:04] LABS: Glucose, Whole Blood 164 mg/dL (60-115)
--- NOTE | 2021-02-25 13:05 | MHC.CM.PN ---
IMM 02/25/21 Female covid+. She lives with her son. She requires assist with ADLs. Colin provides assistance. She has [facility] for wound care. She is a patient of [facility]. DP home with resumption of services. Family will provide transportation.
--- NOTE | 2021-02-25 13:57 | HO.WOUNDCONS ---
History of Present Illness Data of Consult Service Date: 02/25/21 Requesting physician: Ham Sanchez Primary Care Provider: Salud Lester MD HPI Reason for consult: right anterior leg wound 80-year-old female followed by the wound clinic with nonhealing wound of the right anterior norris associated with diabetes for which Epicord was most recently placed on [id number] by Dr. Suazo. plays a role. Denies fevers. Denies drainage. Hospital records indicate that the patient became short of breath and was admitted yesterday with COVID positive pneumonia. Records indicate she was vaccinated for Sars V 2. She takes Eliquis for atrial fibrillation. She had a low-grade temperature associated with presentation. She caries a history of asthma and hypoventilation associated with obesity. Review of Systems Review of Systems: shortness of breath is better now, no fever, no chest pain. No new swelling in the leg. No odor. No drainage. Yes all other systems are reviewed and are negative [facility] Medical History (Updated 02/25/21 @ 14:14 by CARA Gregg) Atrial fibrillation Cervical radiculopathy due to degenerative joint disease of spine Conjunctivitis COPD (chronic obstructive pulmonary disease) Depression Diabetes Diastolic dysfunction with chronic heart failure Foot ulcer, right Hemorrhoids Hyperlipidemia Hypertension Laceration of skin Moderate persistent asthma Obesity Petechiae Physical deconditioning Recurrent pulmonary embolism Rheumatoid arthritis Venous insufficiency Family History Father No problems noted. Mother No problems noted. Pertinent family history: noncontributory Social History (Updated 02/24/21 @ 17:33 by Ham Sanchez MD) Household Members: Children Housing: House Do you presently have visiting nurse or other home services: Yes (granddaughter helps out. prev VNA serv.) Alcohol intake: never Patient Tobacco Use Status: Never used Tobacco e-Cigarette/Vaping Use: Never Used service: No Current occupational status: retired Meds Allergies Allergy/AdvReac Type Severity Reaction Status Date / Time atorvastatin [Lipitor] Allergy Unknown Unknown Verified 02/24/21 13:12 ciprofloxacin [From Cipro] Allergy Unknown Unknown Verified 02/24/21 13:12 ezetimibe [Zetia] Allergy Unknown unkno Verified 02/24/21 13:12 hydrochlorothiazide Allergy Unknown Unknown Verified 02/24/21 13:12 [From Avalide] Hytrin Allergy Unknown Unknown Verified 02/24/21 13:12 infliximab [From REMICADE] Allergy Unknown INFECTION Verified 02/24/21 13:12 irbesartan [From Avalide] Allergy Unknown Unknown Verified 02/24/21 13:12 metformin Allergy Unknown nausea Verified 02/24/21 13:12 nifedipine Allergy Unknown Unknown Verified 02/24/21 13:12 pravastatin Allergy Unknown stomach Verified 02/24/21 13:12 upset rosuvastatin [Crestor] Allergy Unknown Unknown Verified 02/24/21 13:12 valsartan [Diovan] Allergy Unknown Unknown Verified 02/24/21 13:12 warfarin [WARFARIN] Allergy Unknown THROAT Verified 02/24/21 13:12 SWELLING moxifloxacin [From Avelox] Allergy Unknown Verified 02/24/21 13:12 Active Medications: Current Medications Acetaminophen (Acetaminophen 325 Mg Tablet) 650 mg PO Q6H PRN PRN Reason: Pain, Mild (Pain Scale 1-3) Albuterol Sulfate (Albuterol Sulfate 90 Mcg 8 Gm Inhaler) 2 puff INHALE Q4H PRN PRN Reason: sob Apixaban (Apixaban 5 Mg Tablet) 5 mg PO BID [facility] Last Admin: 02/25/21 08:09 Dose: 5 mg Documented by: Ascorbic Acid (Ascorbic Acid 500 Mg Tablet) 500 mg PO DAILY [facility] Last Admin: 02/25/21 08:09 Dose: 500 mg Documented by: Dextrose (Dextrose 50 % 25 Gm/50 Ml Vial) 25 gm IVPUSH Q15M PRN; Protocol PRN Reason: per Hypoglycemia Standing Ord. Diltiazem HCl (Diltiazem Hcl Cd 240 Mg Cap.Er.Deg) 240 mg PO DAILY [facility]; Protocol Last Admin: 02/25/21 08:08 Dose: 240 mg Documented by: Fenofibrate (Fenofibrate 160 Mg Tablet) 160 mg PO DAILY [facility] Last Admin: 02/25/21 08:08 Dose: 160 mg Documented by: Fluticasone/Vilanterol (Fluticasone/Vilanterol 200/25 Blst.W.Dev) 1 puff INHALE DAILY [facility] Last Admin: 02/25/21 07:49 Dose: 1 puff Documented by: Folic Acid (Folic Acid 1 Mg Tablet) 1 mg PO DAILY [facility] Last Admin: 02/25/21 08:08 Dose: 1 mg Documented by: Furosemide (Furosemide 20 Mg Tablet) 60 mg PO BID [facility]; Protocol Last Admin: 02/25/21 09:03 Dose: Not Given Documented by: Gabapentin (Gabapentin 300 Mg Capsule) 300 mg PO BID [facility] Last Admin: 02/25/21 08:09 Dose: 300 mg Documented by: Glucose (Glucose Gel 15 Gm Gel..Gram.) 15 gm PO Q15M PRN; Protocol PRN Reason: per Hypoglycemia Standing Ord. Insulin Glargine (Insulin Glargine,Hum.Rec.Anlog 100 Unit/Ml 10 Ml Vial) 10 unit SUBCUT BEDTIME [facility] Last Admin: 02/24/21 21:30 Dose: 10 unit Documented by: Insulin Human Lispro (Insulin Lispro 100 Unit/Ml 3 Ml Vial) 0 unit SUBCUT QIDACHS [facility]; Protocol Last Admin: 02/25/21 11:54 Dose: 2 unit Documented by: Insulin Human Lispro (Insulin Lispro 100 Unit/Ml 3 Ml Vial) 5 unit SUBCUT TIDAC [facility] Last Admin: 02/25/21 11:54 Dose: 5 unit Documented by: Levothyroxine Sodium (Levothyroxine Sodium 50 Mcg Tablet) 50 mcg PO DAILY@0630 [facility] Last Admin: 02/25/21 05:21 Dose: 50 mcg Documented by: Lisinopril (Lisinopril 40 Mg Tablet) 40 mg PO DAILY [facility]; Protocol Last Admin: 02/25/21 08:08 Dose: 40 mg Documented by: Methylprednisolone Sodium Succinate (Methylprednisolone Sod Succ 125 Mg/2 Ml Vial) 60 mg IVPUSH Q12H [facility] Last Admin: 02/25/21 08:19 Dose: 60 mg Documented by: Omeprazole (Omeprazole 20 Mg Capsule.) 20 mg PO DAILY [facility] Last Admin: 02/25/21 08:09 Dose: 20 mg Documented by: Pharmacy Consult (Consult Rx Perform Med Rec) 1 each MISCELLANE ONCE PRN PRN Reason: Consult order Sertraline HCl (Sertraline Hcl 50 Mg Tablet) 50 mg PO DAILY [facility] Last Admin: 02/25/21 08:09 Dose: 50 mg Documented by: Sodium Chloride (0.9 % Sodium Chloride Flush 3 Ml Syringe) 3 ml IVFLUSH QSHIFT [facility] Last Admin: 02/25/21 08:06 Dose: 3 ml Documented by: Sulfasalazine (Sulfasalazine 500 Mg Tablet) 500 mg PO DAILY [facility] Last Admin: 02/25/21 08:09 Dose: 500 mg Documented by: Home Medications Medication Instructions Recorded Confirmed Last Taken Type blood sugar diagnostic #10 ea 03/11/20 02/18/21 Unknown History blood-glucose meter #1 ea 03/11/20 02/18/21 Unknown History budesonide-formoterol HFA 160 1 puff INHALATION BID 03/11/20 02/24/21 Unknown History mcg-4.5 mcg/actuation aerosol inhaler diltiazem HCl 240 mg 240 mg PO DAILY 03/11/20 02/24/21 Unknown History capsule,extended release 24 hr, controlled ascorbic acid (vitamin C) 500 mg 500 mg PO DAILY 10/14/20 02/24/21 Unknown History tablet sulfasalazine 500 mg tablet 500 mg PO DAILY 02/24/21 02/24/21 Unknown History umeclidinium 62.5 mcg/actuation 1 puff PO DAILY 02/24/21 02/24/21 Unknown History blister powder for inhalation (Incruse Ellipta) Physical Exam Vital Signs and Narrative: Vital Signs: Last Vital Signs Temp 97.7 F 02/25/21 11:09 Pulse 84 02/25/21 11:09 Resp 20 02/25/21 11:09 BP 151/65 H 02/25/21 11:09 Pulse Ox 95 02/25/21 11:09 Oxygen Flow Rate 3 02/24/21 15:06 Body Mass Index 38.0 She is wearing a nasal canula. Breathing is nonlabored. Converses naturally and comfortably. No cyanosis. No new edema in the right lower extremity. No redness, streaking nor warmth. Periwound is healthy. Sloughy wound base without infection. Consider debridement as an outpatient. Results Labs CBC and Chem 7: 02/25/21 05:49 02/25/21 05:49 Labs: Laboratory Results - last 24 hr 02/24/21 02/24/21 02/24/21 16:17 16:17 16:18 MCV 97.3 MCH 30.5 MCHC 31.4 RDW 12.9 Plt Count 187 MPV 11.1 Immature Gran % (Auto) 0.4 Neut % (Auto) 64.2 Lymph % (Auto) 26.9 [place] % (Auto) 8.3 Eos % (Auto) 0.2 Baso % (Auto) 0.0 Lymph # (Auto) 1.3 [place] # (Auto) 0.4 Eos # (Auto) 0.0 Baso # (Auto) 0.0 Abs Immat Gran (auto) 0.02 Absolute Neuts (auto) 3.2 Absolute Nucleated RBC 0.000 Nucleated RBC % (auto) 0.0 Smear Tech's Comments VERIFIED VBG pH VBG pCO2 VBG pO2 VBG HCO3 VBG O2 Saturation VBG Base Excess Anion Gap Estim Creat Clear Calc Estimated GFR POC Glucose Random Glucose Fasting Glucose Lactic Acid 1.1 Calcium Magnesium Total Bilirubin Direct Bilirubin AST ALT Alkaline Phosphatase Lactate Dehydrogenase Troponin I High Sens 17.2 H* C-Reactive Protein B-Natriuretic Peptide 119 H Total Protein Albumin COVID-19 (YASIR) COVIDBionym 02/24/21 02/24/21 02/24/21 16:18 16:19 16:25 MCV MCH MCHC RDW Plt Count MPV Immature Gran % (Auto) Neut % (Auto) Lymph % (Auto) [place] % (Auto) Eos % (Auto) Baso % (Auto) Lymph # (Auto) [place] # (Auto) Eos # (Auto) Baso # (Auto) Abs Immat Gran (auto) Absolute Neuts (auto) Absolute Nucleated RBC Nucleated RBC % (auto) Smear Tech's Comments VBG pH 7.38 VBG pCO2 64 VBG pO2 44 VBG HCO3 39 H VBG O2 Saturation 66.0 VBG Base Excess 11.0 Anion Gap 13 Estim Creat Clear Calc 62.3 Estimated GFR > 60 POC Glucose Random Glucose 105 Fasting Glucose Lactic Acid Calcium 9.2 D Magnesium 2.2 Total Bilirubin 0.7 Direct Bilirubin 0.3 AST 39 H D ALT 39 H Alkaline Phosphatase 79 Lactate Dehydrogenase Troponin I High Sens C-Reactive Protein B-Natriuretic Peptide Total Protein 7.5 Albumin 3.9 COVID-19 (YASIR) Positive A COVID-[employer] See Note 02/24/21 02/24/21 02/25/21 18:14 20:02 05:49 MCV 98.3 H MCH 30.5 MCHC 31.0 RDW 12.9 Plt Count 211 MPV 11.6 Immature Gran % (Auto) Neut % (Auto) Lymph % (Auto) [place] % (Auto) Eos % (Auto) Baso % (Auto) Lymph # (Auto) [place] # (Auto) Eos # (Auto) Baso # (Auto) Abs Immat Gran (auto) Absolute Neuts (auto) Absolute Nucleated RBC 0.000 Nucleated RBC % (auto) 0.0 Smear Tech's Comments VBG pH VBG pCO2 VBG pO2 VBG HCO3 VBG O2 Saturation VBG Base Excess Anion Gap Estim Creat Clear Calc Estimated GFR POC Glucose 125 H 166 H Random Glucose Fasting Glucose Lactic Acid Calcium Magnesium Total Bilirubin Direct Bilirubin AST ALT Alkaline Phosphatase Lactate Dehydrogenase Troponin I High Sens C-Reactive Protein B-Natriuretic Peptide Total Protein Albumin COVID-19 (YASIR) COVID-19 Clin Com 02/25/21 02/25/21 02/25/21 05:49 07:24 10:53 MCV MCH MCHC RDW Plt Count MPV Immature Gran % (Auto) Neut % (Auto) Lymph % (Auto) [place] % (Auto) Eos % (Auto) Baso % (Auto) Lymph # (Auto) [place] # (Auto) Eos # (Auto) Baso # (Auto) Abs Immat Gran (auto) Absolute Neuts (auto) Absolute Nucleated RBC Nucleated RBC % (auto) Smear Tech's Comments VBG pH VBG pCO2 VBG pO2 VBG HCO3 VBG O2 Saturation VBG Base Excess Anion Gap 16 Estim Creat Clear Calc 60.3 Estimated GFR > 60 POC Glucose 194 H 164 H Random Glucose Fasting Glucose 190 H Lactic Acid Calcium 9.1 Magnesium Total Bilirubin Direct Bilirubin AST ALT Alkaline Phosphatase Lactate Dehydrogenase 278 H Troponin I High Sens C-Reactive Protein 10.42 H B-Natriuretic Peptide Total Protein Albumin COVID-19 (YASIR) COVID-19 Clin Com Imaging Radiologist's Impressions: Impressions Chest X-Ray 02/24/21 14:55 IMPRESSION: No change in bilateral patchy infiltrates and mild cardiac likely. Assessment and Plan (1) Non-pressure chronic ulcer of other part of right lower leg with fat layer exposed: Status: Acute This is a sweet 80-year-old woman who is followed by the wound clinic for a nonhealing right anterior norris wound which is long-standing, associated with diabetes and venous insufficiency. There is no evidence of infection on today's examination. She should followup in the wound clinic upon discharge from the hospital. The wound was cleansed and silver alginate was applied. This should be changed every 48 hours. Thank you for allowing us to participate in this patient's care.
[2021-02-25 16:43] LABS: Glucose, Whole Blood 164 mg/dL (60-115)
[2021-02-25 20:46] LABS: Glucose, Whole Blood 160 mg/dL (60-115)
[2021-02-25] MEDS: Insulin Glargine,Hum.rec.anlog 100 UNIT/ML 10 ML VIAL 10 UNIT SUBCUT (20:59)
[2021-02-25] MEDS: Acetaminophen 325 MG TABLET 650 MG PO (20:59)
[2021-02-25] MEDS: Furosemide 20 MG TABLET 60 MG PO (20:59)
[2021-02-25] MEDS: Famotidine/PF 20 MG/2 ML VIAL IVPUSH (21:07)
[2021-02-26] VITALS (12 sets, daily range): BP systolic 121–157; BP diastolic 55–82; PULSE 67–101; RESP 18–22; TEMP 35.5–37.1; O2SAT 91–97
[2021-02-26] MEDS: Levothyroxine Sodium 50 MCG TABLET PO (05:42)
[2021-02-26 06:31] LABS: Hematocrit 47.5 % (37-47); Hemoglobin 14.5 g/dl (12.0-16.0); Mean Corpuscular HGB Conc 30.5 g/dl (31.0-35.0); Mean Corpuscular Hemoglobin 30.4 pg (27.0-33.0); Mean Corpuscular Volume 99.6 fL (80-98); Mean Platelet Volume 10.9 fL (9.4-12.3); Platelet Count 258 X10*3/uL (160-400); Red Blood Count 4.77 X10*6/uL (4.20-5.50); Red Cell Distribution Width 12.5 % (11.0-16.0); White Blood Count 7.7 X10*3/uL (4.8-10.8)
[2021-02-26 07:06] LABS: Alanine Aminotransferase 44 U/L (0-31); Albumin Level 3.9 g/dL (3.5-5.0); Alkaline Phosphatase 81 U/L (39-117); Anion Gap 16 (12-20); Aspartate Amino Transferase 35 U/L (5-31); Bilirubin Direct 0.2 mg/dL (0.0-0.5); Bilirubin Total 0.5 mg/dL (0.0-1.0); Blood Urea Nitrogen 41 mg/dL (9-16); Carbon Dioxide 38 mmol/L (22-29); Chloride 96 mmol/L (96-108); Creatinine Clr Calc Pharmacy 50.6; Estimated Glomerular Filt Rate 50; Glucose Fasting 179 mg/dL (60-99); Lactate Dehydrogenase 251 U/L (122-220); Sodium 145 mmol/L (135-145); Total Protein 7.7 g/dL (6.5-8.0)
[2021-02-26 07:16] LABS: Glucose, Whole Blood 171 mg/dL (60-115)
[2021-02-26] MEDS: Insulin Lispro 100 UNIT/ML 3 ML VIAL SUBCUT ×7 (08:02→22:04)
[2021-02-26] MEDS: Apixaban 5 MG TABLET PO ×2 (08:04→22:02)
[2021-02-26] MEDS: lisinopriL 40 MG TABLET PO (08:04)
[2021-02-26] MEDS: Fenofibrate 160 MG TABLET PO (08:04)
[2021-02-26] MEDS: Folic Acid 1 MG TABLET PO (08:04)
[2021-02-26] MEDS: sulfaSALAzine 500 MG TABLET PO (08:04)
[2021-02-26] MEDS: Gabapentin 300 MG CAPSULE PO ×2 (08:05→22:02)
[2021-02-26] MEDS: dilTIAZem HCL CD 240 MG CAP.ER.DEG PO (08:05)
[2021-02-26] MEDS: Omeprazole 20 MG CAPSULE.DR PO (08:06)
[2021-02-26] MEDS: Furosemide 20 MG TABLET 60 MG PO ×2 (08:06→22:01)
[2021-02-26] MEDS: Sertraline HCL 50 MG TABLET PO (08:07)
[2021-02-26] MEDS: Ascorbic Acid 500 MG TABLET PO (08:07)
[2021-02-26] MEDS: 0.9 % Sodium Chloride Flush 3 ML SYRINGE IVFLUSH ×3 (08:07→22:04)
[2021-02-26] MEDS: Fluticasone/Vilanterol 200/25 BLST.W.DEV 1 PUFF INHALE (08:12)
[2021-02-26] MEDS: methylPREDNISolone Sod Succ 125 MG/2 ML VIAL 60 MG IVPUSH ×2 (10:28→22:02)
--- NOTE | 2021-02-26 10:45 | PC.NURSE ---
0730 POC 171 - VERIFIED WITH OKAY TO GIVEN SLIDING SCALE AND SCHEDULED INSULIN. STATED TO GIVEN BOTH FOR A TOTAL OF 7 UNITS OF HUMALOG. PT ATE 100% OF BREAKFAST. WILL CONTINUE TO MONITOR.
--- NOTE | 2021-02-26 10:54 | HO.PM.IMPN ---
Subjective Subjective Date of Service: 02/26/21 Interval History: cc: sob interval history: feeling better today, better appetite Cardiovascular Cardiovascular: Reports no additional cardiovascular complaints Gastrointestinal Gastrointestinal: Reports no additional gastrointestinal complaints Physical Exam Vital Signs: Vital Signs: Last Vital Signs Temp 96 F L 02/26/21 06:59 Pulse 89 02/26/21 08:05 Resp 22 H 02/26/21 06:59 BP 122/55 L 02/26/21 08:05 Pulse Ox 96 02/26/21 06:59 Oxygen Flow Rate 3 02/24/21 15:06 Body Mass Index 38.0 General: AO X 3, no acute distress Resp:? diminihshed, crackles CVS: S1,S2,irregular, 1-2+ edema bilateral GI: soft, non tender, non distended Neuro:? motor grossly intact, alert Psych: appropriate affect, appropriate insight? Objective Data Active Medications Acetaminophen (Acetaminophen 325 Mg Tablet) 650 mg PO Q6H PRN PRN Reason: Pain, Mild (Pain Scale 1-3) Last Admin: 02/25/21 20:59 Dose: 650 mg Documented by: SYLVIA Albuterol Sulfate (Albuterol Sulfate 90 Mcg 8 Gm Inhaler) 2 puff INHALE Q4H PRN PRN Reason: sob Apixaban (Apixaban 5 Mg Tablet) 5 mg PO BID [facility] Last Admin: 02/26/21 08:04 Dose: 5 mg Documented by: BALWINDER Artificial Tears (Artificial Tears 15 Ml Drops) 2 drop EYE-BOTH Q4H PRN PRN Reason: dry eyes Ascorbic Acid (Ascorbic Acid 500 Mg Tablet) 500 mg PO DAILY [facility] Last Admin: 02/26/21 08:07 Dose: 500 mg Documented by: BALWINDER Dextrose (Dextrose 50 % 25 Gm/50 Ml Vial) 25 gm IVPUSH Q15M PRN; Protocol PRN Reason: per Hypoglycemia Standing Ord. Diltiazem HCl (Diltiazem Hcl Cd 240 Mg Cap.Er.Deg) 240 mg PO DAILY [facility]; Protocol Last Admin: 02/26/21 08:05 Dose: 240 mg Documented by: BALWINDER Fenofibrate (Fenofibrate 160 Mg Tablet) 160 mg PO DAILY [facility] Last Admin: 02/26/21 08:04 Dose: 160 mg Documented by: BALWINDER Fluticasone/Vilanterol (Fluticasone/Vilanterol 200/25 Blst.W.Dev) 1 puff INHALE DAILY [facility] Last Admin: 02/26/21 08:12 Dose: 1 puff Documented by: EMILIANA Folic Acid (Folic Acid 1 Mg Tablet) 1 mg PO DAILY [facility] Last Admin: 02/26/21 08:04 Dose: 1 mg Documented by: BALWINDER Furosemide (Furosemide 20 Mg Tablet) 60 mg PO BID [facility]; Protocol Last Admin: 02/26/21 08:06 Dose: 60 mg Documented by: BALWINDER Gabapentin (Gabapentin 300 Mg Capsule) 300 mg PO BID [facility] Last Admin: 02/26/21 08:05 Dose: 300 mg Documented by: BALWINDER Glucose (Glucose Gel 15 Gm Gel..Gram.) 15 gm PO Q15M PRN; Protocol PRN Reason: per Hypoglycemia Standing Ord. Insulin Glargine (Insulin Glargine,Hum.Rec.Anlog 100 Unit/Ml 10 Ml Vial) 10 unit SUBCUT BEDTIME [facility] Last Admin: 02/25/21 20:59 Dose: 10 unit Documented by: SYLVIA Insulin Human Lispro (Insulin Lispro 100 Unit/Ml 3 Ml Vial) 0 unit SUBCUT QIDACHS [facility]; Protocol Last Admin: 02/26/21 08:02 Dose: 2 unit Documented by: BALWINDER Insulin Human Lispro (Insulin Lispro 100 Unit/Ml 3 Ml Vial) 5 unit SUBCUT TIDAC [facility] Last Admin: 02/26/21 08:03 Dose: 5 unit Documented by: BALWINDER Levothyroxine Sodium (Levothyroxine Sodium 50 Mcg Tablet) 50 mcg PO DAILY@0630 [facility] Last Admin: 02/26/21 05:42 Dose: 50 mcg Documented by: SYLVIA Lisinopril (Lisinopril 40 Mg Tablet) 40 mg PO DAILY [facility]; Protocol Last Admin: 02/26/21 08:04 Dose: 40 mg Documented by: BALWINDER Methylprednisolone Sodium Succinate (Methylprednisolone Sod Succ 125 Mg/2 Ml Vial) 60 mg IVPUSH Q12H [facility] Last Admin: 02/26/21 10:28 Dose: 60 mg Documented by: BALWINDER Omeprazole (Omeprazole 20 Mg Greta.) 20 mg PO DAILY [facility] Last Admin: 02/26/21 08:06 Dose: 20 mg Documented by: BALWINDER Pharmacy Consult (Consult Rx Perform Med Rec) 1 each MISCELLANE ONCE PRN PRN Reason: Consult order Sertraline HCl (Sertraline Hcl 50 Mg Tablet) 50 mg PO DAILY [facility] Last Admin: 02/26/21 08:07 Dose: 50 mg Documented by: BALWINDER Sodium Chloride (0.9 % Sodium Chloride Flush 3 Ml Syringe) 3 ml IVFLUSH QSHIFT [facility] Last Admin: 02/26/21 08:07 Dose: 3 ml Documented by: BALWINDER Sulfasalazine (Sulfasalazine 500 Mg Tablet) 500 mg PO DAILY [facility] Last Admin: 02/26/21 08:04 Dose: 500 mg Documented by: BALWINDER Labs CBC & Chem 7: 02/26/21 06:00 02/26/21 06:00 Labs: Laboratory Results - last 24 hr 02/25/21 02/25/21 02/25/21 10:53 16:02 20:42 MCV MCH MCHC RDW Plt Count MPV Absolute Nucleated RBC Nucleated RBC % (auto) Anion Gap Estim Creat Clear Calc Estimated GFR POC Glucose 164 H 164 H 160 H Fasting Glucose Calcium Total Bilirubin Direct Bilirubin AST ALT Alkaline Phosphatase Lactate Dehydrogenase C-Reactive Protein Total Protein Albumin 02/26/21 02/26/21 02/26/21 06:00 06:00 06:59 MCV 99.6 H MCH 30.4 MCHC 30.5 L RDW 12.5 Plt Count 258 MPV 10.9 Absolute Nucleated RBC 0.000 Nucleated RBC % (auto) 0.0 Anion Gap 16 Estim Creat Clear Calc 50.6 Estimated GFR 50 POC Glucose 171 H Fasting Glucose 179 H Calcium 10.0 D Total Bilirubin 0.5 Direct Bilirubin 0.2 AST 35 H ALT 44 H Alkaline Phosphatase 81 Lactate Dehydrogenase 251 H C-Reactive Protein 6.20 H Total Protein 7.7 Albumin 3.9 Microbiology Microbiology Results: Microbiology 02/24/21 16:17 Blood Culture - Preliminary Blood - Venous No growth after 24 hours. 02/24/21 16:17 Blood Culture - Preliminary Blood - Venous No growth after 24 hours. Assessment and Plan (1) Acute respiratory failure with hypoxia: Status: Acute (2) Moderate persistent asthma: Status: Acute (3) COVID-19: Status: Acute (4) Diabetes: Status: Acute Assessment and Plan: 80F presented with sob, found to have covid Acute hypoxic respiratory failure secondary to COVID pneumonia in patient with moderate persistent asthma continue O2 support, wean as tolerated, monitor inflammatory markers - improving, steroids High risk due to comorbidities of morbid obesity, diabetes Acute on chronic diastolic CHF diuresed well, back on po lasix monitor electrolytes echo with LV hypertrophy, normal EF, collapsable IVC Permanent atrial fibrillation Cardizem, apixaban Hypertension Lisinopril, Cardizem Rheumatoid arthritis Sulfasalazine Hypothyroid Synthroid History of recurrent pulmonary embolism Continue Eliquis DVT prophylaxis, on Eliquis Full code Quality Stroke Does the patient have a stroke diagnosis?: No VTE Prior VTE?: Yes VTE Risk Level:: Medical - moderate - high VTE Device Contraindication: Treatment Not Indicated VTE Drug Contraindication: N/A - Med Ordered
[2021-02-26 11:15] LABS: Glucose, Whole Blood 163 mg/dL (60-115)
--- NOTE | 2021-02-26 14:18 | MHC.CM.PN ---
Female 80 DX Covid DP Home with resumption of [place]. Family will provide transportation. CM will follow.
[2021-02-26 15:52] LABS: Glucose, Whole Blood 202 mg/dL (60-115)
[2021-02-26] MEDS: Acetaminophen 325 MG TABLET 650 MG PO (18:02)
[2021-02-26 19:44] LABS: Glucose, Whole Blood 195 mg/dL (60-115)
[2021-02-26] MEDS: Insulin Glargine,Hum.rec.anlog 100 UNIT/ML 10 ML VIAL 10 UNIT SUBCUT (22:02)
[2021-02-27] VITALS (10 sets, daily range): BP systolic 114–151; BP diastolic 59–84; PULSE 75–90; RESP 17–20; TEMP 36–36.9; O2SAT 92–96; BMI 37.7
[2021-02-27] MEDS: Levothyroxine Sodium 50 MCG TABLET PO (05:42)
[2021-02-27 07:08] LABS: Hematocrit 46.2 % (37-47); Hemoglobin 14.5 g/dl (12.0-16.0); Mean Corpuscular HGB Conc 31.4 g/dl (31.0-35.0); Mean Corpuscular Hemoglobin 30.7 pg (27.0-33.0); Mean Corpuscular Volume 97.9 fL (80-98); Mean Platelet Volume 11.1 fL (9.4-12.3); Platelet Count 273 X10*3/uL (160-400); Red Blood Count 4.72 X10*6/uL (4.20-5.50); Red Cell Distribution Width 12.4 % (11.0-16.0); White Blood Count 8.8 X10*3/uL (4.8-10.8)
[2021-02-27 07:53] LABS: Anion Gap 17 (12-20); Blood Urea Nitrogen 46 mg/dL (9-16); C Reactive Protein 3.41 mg/dL (< or = 0.50); Calcium 9.8 mg/dL (8.4-10.2); Carbon Dioxide 35 mmol/L (22-29); Chloride 93 mmol/L (96-108); Estimated Glomerular Filt Rate 51; Glucose Fasting 190 mg/dL (60-99); Potassium 4.1 mmol/L (3.3-5.1); Sodium 141 mmol/L (135-145)
[2021-02-27] MEDS: Fluticasone/Vilanterol 200/25 BLST.W.DEV 1 PUFF INHALE (07:53)
[2021-02-27 08:01] LABS: Glucose, Whole Blood 180 mg/dL (60-115)
[2021-02-27] MEDS: Insulin Lispro 100 UNIT/ML 3 ML VIAL SUBCUT ×7 (09:13→20:12)
[2021-02-27] MEDS: Fenofibrate 160 MG TABLET PO (09:13)
[2021-02-27] MEDS: 0.9 % Sodium Chloride Flush 3 ML SYRINGE IVFLUSH ×3 (09:13→20:13)
[2021-02-27] MEDS: Apixaban 5 MG TABLET PO ×2 (09:14→20:10)
[2021-02-27] MEDS: sulfaSALAzine 500 MG TABLET PO (09:15)
[2021-02-27] MEDS: Gabapentin 300 MG CAPSULE PO ×2 (09:15→20:10)
[2021-02-27] MEDS: Ascorbic Acid 500 MG TABLET PO (09:15)
[2021-02-27] MEDS: Furosemide 20 MG TABLET 60 MG PO ×2 (09:15→20:10)
[2021-02-27] MEDS: methylPREDNISolone Sod Succ 125 MG/2 ML VIAL 60 MG IVPUSH ×2 (09:16→20:10)
[2021-02-27 11:14] LABS: Glucose, Whole Blood 244 mg/dL (60-115)
[2021-02-27] MEDS: Folic Acid 1 MG TABLET PO (11:55)
[2021-02-27] MEDS: dilTIAZem HCL CD 240 MG CAP.ER.DEG PO (11:55)
[2021-02-27] MEDS: lisinopriL 40 MG TABLET PO (11:56)
[2021-02-27] MEDS: Sertraline HCL 50 MG TABLET PO (11:56)
--- NOTE | 2021-02-27 12:47 | P.PNIM_ITS ---
Subjective Subjective Date of Service: 02/27/21 Interval History: cc: sob inerval history: continues to improve Cardiovascular Cardiovascular: Reports no additional cardiovascular complaints Gastrointestinal Gastrointestinal: Reports no additional gastrointestinal complaints Physical Exam Vital Signs: Vital Signs: Last Vital Signs Temp 97.8 F 02/27/21 11:27 Pulse 86 02/27/21 11:56 Resp 20 02/27/21 11:27 BP 132/61 02/27/21 11:56 Pulse Ox 92 02/27/21 11:27 Oxygen Flow Rate 3 02/24/21 15:06 Body Mass Index 38.0 General: AO X 3, no acute distress Resp:? diminihshed, crackles CVS: S1,S2,irregular, 1-2+ edema bilateral GI: soft, non tender, non distended Neuro:? motor grossly intact, alert Psych: appropriate affect, appropriate insight? Objective Data Active Medications Acetaminophen (Acetaminophen 325 Mg Tablet) 650 mg PO Q6H PRN PRN Reason: Pain, Mild (Pain Scale 1-3) Last Admin: 02/26/21 18:02 Dose: 650 mg Documented by: LORNE Albuterol Sulfate (Albuterol Sulfate 90 Mcg 8 Gm Inhaler) 2 puff INHALE Q4H PRN PRN Reason: sob Apixaban (Apixaban 5 Mg Tablet) 5 mg PO BID [facility] Last Admin: 02/27/21 09:14 Dose: 5 mg Documented by: TRAV Artificial Tears (Artificial Tears 15 Ml Drops) 2 drop EYE-BOTH Q4H PRN PRN Reason: dry eyes Ascorbic Acid (Ascorbic Acid 500 Mg Tablet) 500 mg PO DAILY [facility] Last Admin: 02/27/21 09:15 Dose: 500 mg Documented by: TRAV Dextrose (Dextrose 50 % 25 Gm/50 Ml Vial) 25 gm IVPUSH Q15M PRN; Protocol PRN Reason: per Hypoglycemia Standing Ord. Diltiazem HCl (Diltiazem Hcl Cd 240 Mg Cap.Er.Deg) 240 mg PO DAILY [facility]; Protocol Last Admin: 02/27/21 11:55 Dose: 240 mg Documented by: TRAV Fenofibrate (Fenofibrate 160 Mg Tablet) 160 mg PO DAILY [facility] Last Admin: 02/27/21 09:13 Dose: 160 mg Documented by: TRAV Fluticasone/Vilanterol (Fluticasone/Vilanterol 200/25 Blst.W.Dev) 1 puff INHALE DAILY [facility] Last Admin: 02/27/21 07:53 Dose: 1 puff Documented by: CLAUDIA Folic Acid (Folic Acid 1 Mg Tablet) 1 mg PO DAILY [facility] Last Admin: 02/27/21 11:55 Dose: 1 mg Documented by: TRAV Furosemide (Furosemide 20 Mg Tablet) 60 mg PO BID [facility]; Protocol Last Admin: 02/27/21 09:15 Dose: 60 mg Documented by: TRAV Gabapentin (Gabapentin 300 Mg Capsule) 300 mg PO BID [facility] Last Admin: 02/27/21 09:15 Dose: 300 mg Documented by: TRAV Glucose (Glucose Gel 15 Gm Gel..Gram.) 15 gm PO Q15M PRN; Protocol PRN Reason: per Hypoglycemia Standing Ord. Insulin Glargine (Insulin Glargine,Hum.Rec.Anlog 100 Unit/Ml 10 Ml Vial) 10 unit SUBCUT BEDTIME [facility] Last Admin: 02/26/21 22:02 Dose: 10 unit Documented by: TIFF Insulin Human Lispro (Insulin Lispro 100 Unit/Ml 3 Ml Vial) 0 unit SUBCUT QIDACHS [facility]; Protocol Last Admin: 02/27/21 11:56 Dose: 4 unit Documented by: TRAV Insulin Human Lispro (Insulin Lispro 100 Unit/Ml 3 Ml Vial) 5 unit SUBCUT TIDAC [facility] Last Admin: 02/27/21 11:58 Dose: 5 unit Documented by: TRAV Levothyroxine Sodium (Levothyroxine Sodium 50 Mcg Tablet) 50 mcg PO DAILY@0630 [facility] Last Admin: 02/27/21 05:42 Dose: 50 mcg Documented by: TIFF Lisinopril (Lisinopril 40 Mg Tablet) 40 mg PO DAILY [facility]; Protocol Last Admin: 02/27/21 11:56 Dose: 40 mg Documented by: TRAV Methylprednisolone Sodium Succinate (Methylprednisolone Sod Succ 125 Mg/2 Ml Vial) 60 mg IVPUSH Q12H [facility] Last Admin: 02/27/21 09:16 Dose: 60 mg Documented by: TRAV Omeprazole (Omeprazole 20 Mg Capsule.Dr) 20 mg PO DAILY [facility] Last Admin: 02/27/21 11:59 Dose: Not Given Documented by: ANGEL Non-Admin Reason: Patient Refused Pharmacy Consult (Consult Rx Perform Med Rec) 1 each MISCELLANE ONCE PRN PRN Reason: Consult order Sertraline HCl (Sertraline Hcl 50 Mg Tablet) 50 mg PO DAILY [facility] Last Admin: 02/27/21 11:56 Dose: 50 mg Documented by: TRAV Sodium Chloride (0.9 % Sodium Chloride Flush 3 Ml Syringe) 3 ml IVFLUSH QSHIFT [facility] Last Admin: 02/27/21 09:13 Dose: 3 ml Documented by: TRAV Sulfasalazine (Sulfasalazine 500 Mg Tablet) 500 mg PO DAILY [facility] Last Admin: 02/27/21 09:15 Dose: 500 mg Documented by: TRAV Labs CBC & Chem 7: 02/27/21 06:41 02/27/21 06:41 Labs: Laboratory Results - last 24 hr 02/26/21 02/26/21 02/27/21 15:48 19:41 06:41 MCV 97.9 MCH 30.7 MCHC 31.4 RDW 12.4 Plt Count 273 MPV 11.1 Absolute Nucleated RBC 0.000 Nucleated RBC % (auto) 0.0 Anion Gap Estim Creat Clear Calc Estimated GFR POC Glucose 202 H 195 H Fasting Glucose Calcium C-Reactive Protein 02/27/21 02/27/21 02/27/21 06:41 07:54 11:03 MCV MCH MCHC RDW Plt Count MPV Absolute Nucleated RBC Nucleated RBC % (auto) Anion Gap 17 Estim Creat Clear Calc 52.0 Estimated GFR 51 POC Glucose 180 H 244 H Fasting Glucose 190 H Calcium 9.8 C-Reactive Protein 3.41 H Microbiology Microbiology Results: Microbiology 02/24/21 16:17 Blood Culture - Preliminary Blood - Venous No growth after 48 hours. 02/24/21 16:17 Blood Culture - Preliminary Blood - Venous No growth after 48 hours. Assessment and Plan (1) Acute respiratory failure with hypoxia: Status: Acute (2) Moderate persistent asthma: Status: Acute (3) COVID-19: Status: Acute (4) Diabetes: Status: Acute Assessment and Plan: 80F presented with sob, found to have covid Acute hypoxic respiratory failure secondary to COVID pneumonia in patient with moderate persistent asthma continue O2 support, wean as tolerated - down to 2L/min today, monitor inflammatory markers - improving (crp on admission 10.42, now 3.41), steroids High risk due to comorbidities of morbid obesity, diabetes Acute on chronic diastolic CHF diuresed well, back on po lasix monitor electrolytes echo with LV hypertrophy, normal EF, collapsable IVC Permanent atrial fibrillation Cardizem, apixaban Hypertension Lisinopril, Cardizem Rheumatoid arthritis Sulfasalazine Hypothyroid Synthroid History of recurrent pulmonary embolism Continue Eliquis DVT prophylaxis, on Eliquis Full code Quality Stroke Does the patient have a stroke diagnosis?: No VTE Prior VTE?: Yes VTE Risk Level:: Medical - moderate - high VTE Device Contraindication: Treatment Not Indicated VTE Drug Contraindication: N/A - Med Ordered
[2021-02-27] MEDS: Omeprazole 20 MG CAPSULE.DR PO (15:16)
[2021-02-27 16:32] LABS: Glucose, Whole Blood 204 mg/dL (60-115)
[2021-02-27] MEDS: Insulin Glargine,Hum.rec.anlog 100 UNIT/ML 10 ML VIAL 10 UNIT SUBCUT (20:11)
[2021-02-27] MEDS: Acetaminophen 325 MG TABLET 650 MG PO (20:55)
[2021-02-27 20:59] LABS: Glucose, Whole Blood 266 mg/dL (60-115)
[2021-02-28] VITALS (11 sets, daily range): BP systolic 118–145; BP diastolic 53–93; PULSE 78–94; RESP 18–22; TEMP 36.1–37; O2SAT 88–97
[2021-02-28] MEDS: Levothyroxine Sodium 50 MCG TABLET PO (05:46)
[2021-02-28 07:31] LABS: Hematocrit 45.4 % (37-47); Hemoglobin 14.2 g/dl (12.0-16.0); Mean Corpuscular HGB Conc 31.3 g/dl (31.0-35.0); Platelet Count 304 X10*3/uL (160-400); Red Blood Count 4.73 X10*6/uL (4.20-5.50); Red Cell Distribution Width 12.5 % (11.0-16.0); White Blood Count 10.7 X10*3/uL (4.8-10.8)
[2021-02-28 07:45] LABS: Anion Gap 13 (12-20); Blood Urea Nitrogen 53 mg/dL (9-16); C Reactive Protein 1.93 mg/dL (< or = 0.50); Calcium 9.7 mg/dL (8.4-10.2); Carbon Dioxide 39 mmol/L (22-29); Chloride 93 mmol/L (96-108); Creatinine Clr Calc Pharmacy 47.2; Estimated Glomerular Filt Rate 46; Glucose Fasting 210 mg/dL (60-99); Potassium 4.3 mmol/L (3.3-5.1); Sodium 141 mmol/L (135-145)
[2021-02-28 07:58] LABS: Glucose, Whole Blood 217 mg/dL (60-115)
[2021-02-28] MEDS: Gabapentin 300 MG CAPSULE PO ×2 (08:02→21:55)
[2021-02-28] MEDS: Insulin Lispro 100 UNIT/ML 3 ML VIAL SUBCUT ×7 (08:02→21:56)
[2021-02-28] MEDS: Fenofibrate 160 MG TABLET PO (08:02)
[2021-02-28] MEDS: Ascorbic Acid 500 MG TABLET PO (08:02)
[2021-02-28] MEDS: Fluticasone/Vilanterol 200/25 BLST.W.DEV 1 PUFF INHALE (08:02)
[2021-02-28] MEDS: Apixaban 5 MG TABLET PO ×2 (08:02→21:55)
[2021-02-28] MEDS: 0.9 % Sodium Chloride Flush 3 ML SYRINGE IVFLUSH ×2 (08:03→15:36)
[2021-02-28 11:03] LABS: Glucose, Whole Blood 230 mg/dL (60-115)
[2021-02-28] MEDS: methylPREDNISolone Sod Succ 125 MG/2 ML VIAL 60 MG IVPUSH ×2 (11:05→21:55)
[2021-02-28] MEDS: Folic Acid 1 MG TABLET PO (11:07)
[2021-02-28] MEDS: Sertraline HCL 50 MG TABLET PO (11:07)
[2021-02-28] MEDS: sulfaSALAzine 500 MG TABLET PO (11:07)
[2021-02-28] MEDS: cephALEXin 500 MG CAPSULE PO ×2 (11:07→21:58)
[2021-02-28] MEDS: dilTIAZem HCL CD 240 MG CAP.ER.DEG PO (11:07)
[2021-02-28] MEDS: lisinopriL 40 MG TABLET PO (11:08)
[2021-02-28] MEDS: Furosemide 20 MG TABLET 60 MG PO ×2 (11:11→21:55)
--- NOTE | 2021-02-28 11:35 | P.PNIM_ITS ---
Subjective Subjective Date of Service: 02/28/21 Interval History: cc: sob now less sob, still complaining of productive cough Cardiovascular Cardiovascular: Reports no additional cardiovascular complaints Respiratory Respiratory: Reports no additional respiratory complaints Physical Exam Vital Signs: Vital Signs: Last Vital Signs Temp 98.0 F 02/28/21 11:07 Pulse 93 02/28/21 11:07 Resp 22 H 02/28/21 11:07 BP 139/66 02/28/21 11:07 Pulse Ox 92 02/28/21 11:07 Oxygen Flow Rate 3 02/24/21 15:06 Body Mass Index 37.7 General: AO X 3, no acute distress Resp:? diminihshed, crackles CVS: S1,S2,irregular, 1-2+ edema bilateral GI: soft, non tender, non distended Neuro:? motor grossly intact, alert Psych: appropriate affect, appropriate insight? Objective Data Active Medications Acetaminophen (Acetaminophen 325 Mg Tablet) 650 mg PO Q6H PRN PRN Reason: Pain, Mild (Pain Scale 1-3) Last Admin: 02/27/21 20:55 Dose: 650 mg Documented by: TIFF Albuterol Sulfate (Albuterol Sulfate 90 Mcg 8 Gm Inhaler) 2 puff INHALE Q4H PRN PRN Reason: sob Apixaban (Apixaban 5 Mg Tablet) 5 mg PO BID [facility] Last Admin: 02/28/21 08:02 Dose: 5 mg Documented by: ANGEL Artificial Tears (Artificial Tears 15 Ml Drops) 2 drop EYE-BOTH Q4H PRN PRN Reason: dry eyes Ascorbic Acid (Ascorbic Acid 500 Mg Tablet) 500 mg PO DAILY [facility] Last Admin: 02/28/21 08:02 Dose: 500 mg Documented by: ANGEL Cephalexin HCl (Cephalexin 500 Mg Capsule) 500 mg PO Q12H [facility] Last Admin: 02/28/21 11:07 Dose: 500 mg Documented by: ANGEL Dextrose (Dextrose 50 % 25 Gm/50 Ml Vial) 25 gm IVPUSH Q15M PRN; Protocol PRN Reason: per Hypoglycemia Standing Ord. Diltiazem HCl (Diltiazem Hcl Cd 240 Mg Cap.Er.Deg) 240 mg PO DAILY [facility]; Protocol Last Admin: 02/28/21 11:07 Dose: 240 mg Documented by: ANGEL Fenofibrate (Fenofibrate 160 Mg Tablet) 160 mg PO DAILY [facility] Last Admin: 02/28/21 08:02 Dose: 160 mg Documented by: ANGEL Fluticasone/Vilanterol (Fluticasone/Vilanterol 200/25 Blst.W.Dev) 1 puff INHALE DAILY [facility] Last Admin: 02/28/21 08:02 Dose: 1 puff Documented by: EMILAINA Folic Acid (Folic Acid 1 Mg Tablet) 1 mg PO DAILY [facility] Last Admin: 02/28/21 11:07 Dose: 1 mg Documented by: ANGEL Furosemide (Furosemide 20 Mg Tablet) 60 mg PO BID [facility]; Protocol Last Admin: 02/28/21 11:11 Dose: 60 mg Documented by: ANGEL Gabapentin (Gabapentin 300 Mg Capsule) 300 mg PO BID [facility] Last Admin: 02/28/21 08:02 Dose: 300 mg Documented by: ANGEL Glucose (Glucose Gel 15 Gm Gel..Gram.) 15 gm PO Q15M PRN; Protocol PRN Reason: per Hypoglycemia Standing Ord. Insulin Glargine (Insulin Glargine,Hum.Rec.Anlog 100 Unit/Ml 10 Ml Vial) 10 unit SUBCUT BEDTIME [facility] Last Admin: 02/27/21 20:11 Dose: 10 unit Documented by: TIFF Insulin Human Lispro (Insulin Lispro 100 Unit/Ml 3 Ml Vial) 0 [facility]; Protocol Last Admin: 02/28/21 08:02 Dose: 4 unit Documented by: ANGEL Insulin Human Lispro (Insulin Lispro 100 Unit/Ml 3 Ml Vial) 5 unit SUBCUT TIDAC [facility] Last Admin: 02/28/21 08:03 Dose: 5 unit Documented by: ANGEL Levothyroxine Sodium (Levothyroxine Sodium 50 Mcg Tablet) 50 mcg PO DAILY@0630 [facility] Last Admin: 02/28/21 05:46 Dose: 50 mcg Documented by: TIFF Lisinopril (Lisinopril 40 Mg Tablet) 40 mg PO DAILY [facility]; Protocol Last Admin: 02/28/21 11:08 Dose: 40 mg Documented by: ANGEL Methylprednisolone Sodium Succinate (Methylprednisolone Sod Succ 125 Mg/2 Ml Vial) 60 mg IVPUSH Q12H [facility] Last Admin: 02/28/21 11:05 Dose: 60 mg Documented by: ANGEL Omeprazole (Omeprazole 20 Mg Capsule.) 20 mg PO DAILY@1600 [facility] Last Admin: 02/27/21 16:41 Dose: Not Given Documented by: TRAV Non-Admin Reason: Previously Administered Pharmacy Consult (Consult Rx Perform Med Rec) 1 each MISCELLANE ONCE PRN PRN Reason: Consult order Sertraline HCl (Sertraline Hcl 50 Mg Tablet) 50 mg PO DAILY [facility] Last Admin: 02/28/21 11:07 Dose: 50 mg Documented by: ANGEL Sodium Chloride (0.9 % Sodium Chloride Flush 3 Ml Syringe) 3 ml IVFLUSH QSHIFT [facility] Last Admin: 02/28/21 08:03 Dose: 3 ml Documented by: ANGEL Sulfasalazine (Sulfasalazine 500 Mg Tablet) 500 mg PO DAILY [facility] Last Admin: 02/28/21 11:07 Dose: 500 mg Documented by: ANGEL Labs CBC & Chem 7: 02/28/21 06:32 02/28/21 06:32 Labs: Laboratory Results - last 24 hr 02/27/21 02/27/21 02/28/21 16:20 20:03 06:32 MCV 96.0 MCH 30.0 MCHC 31.3 RDW 12.5 Plt Count 304 MPV 11.0 Absolute Nucleated RBC 0.000 Nucleated RBC % (auto) 0.0 Anion Gap Estim Creat Clear Calc Estimated GFR POC Glucose 204 H 266 H Fasting Glucose Calcium C-Reactive Protein 02/28/21 02/28/21 02/28/21 06:32 07:39 10:57 MCV MCH MCHC RDW Plt Count MPV Absolute Nucleated RBC Nucleated RBC % (auto) Anion Gap 13 Estim Creat Clear Calc 47.2 Estimated GFR 46 POC Glucose 217 H 230 H Fasting Glucose 210 H Calcium 9.7 C-Reactive Protein 1.93 H Assessment and Plan (1) Acute respiratory failure with hypoxia: Status: Acute (2) Moderate persistent asthma: Status: Acute (3) COVID-19: Status: Acute (4) Diabetes: Status: Acute Assessment and Plan: 80F presented with sob, found to have covid Acute hypoxic respiratory failure secondary to COVID pneumonia in patient with moderate persistent asthma continue O2 support, wean as tolerated - down to 2L/min but still hypoxic on room air, inflammatory markers - improving (crp on admission 10.42, now 1.93), steroids will add ceftin for any bacterial coinfection High risk due to comorbidities of morbid obesity, diabetes if continues to improve likely discharge in 1-2 days Acute on chronic diastolic CHF diuresed well, back on po lasix monitor electrolytes echo with LV hypertrophy, normal EF, collapsable IVC Permanent atrial fibrillation Cardizem, apixaban Hypertension Lisinopril, Cardizem Rheumatoid arthritis Sulfasalazine Hypothyroid Synthroid History of recurrent pulmonary embolism Continue Eliquis DVT prophylaxis, on Eliquis Full code Quality Stroke Does the patient have a stroke diagnosis?: No VTE Prior VTE?: Yes VTE Risk Level:: Medical - moderate - high VTE Device Contraindication: Treatment Not Indicated VTE Drug Contraindication: N/A - Med Ordered
[2021-02-28] MEDS: Omeprazole 20 MG CAPSULE.DR PO (15:36)
--- NOTE | 2021-02-28 15:50 | MHC.CM.PN ---
FEMALE 80 DX COVID. DP resume [facility] and [facility], continue with wound clinic. Family will provide transportation. Discharge is anticipated tomorrow.
[2021-02-28 19:23] LABS: Glucose, Whole Blood 208 mg/dL (60-115)
[2021-02-28 20:16] LABS: Glucose, Whole Blood 211 mg/dL (60-115)
[2021-02-28] MEDS: Acetaminophen 325 MG TABLET 650 MG PO (21:54)
[2021-02-28] MEDS: Insulin Glargine,Hum.rec.anlog 100 UNIT/ML 10 ML VIAL 10 UNIT SUBCUT (21:57)
[2021-03-01] VITALS (11 sets, daily range): BP systolic 111–156; BP diastolic 57–86; PULSE 71–100; RESP 18–20; TEMP 36.1–36.4; O2SAT 92–94
[2021-03-01] MEDS: Levothyroxine Sodium 50 MCG TABLET PO (05:52)
[2021-03-01 07:34] LABS: Glucose, Whole Blood 213 mg/dL (60-115)
[2021-03-01] MEDS: Fluticasone/Vilanterol 200/25 BLST.W.DEV 1 PUFF INHALE (08:11)
[2021-03-01] MEDS: sulfaSALAzine 500 MG TABLET PO (08:12)
[2021-03-01] MEDS: lisinopriL 40 MG TABLET PO (08:12)
[2021-03-01] MEDS: Fenofibrate 160 MG TABLET PO (08:12)
[2021-03-01] MEDS: dilTIAZem HCL CD 240 MG CAP.ER.DEG PO (08:13)
[2021-03-01] MEDS: Gabapentin 300 MG CAPSULE PO ×2 (08:13→21:10)
[2021-03-01] MEDS: Apixaban 5 MG TABLET PO ×2 (08:13→21:10)
[2021-03-01] MEDS: Furosemide 20 MG TABLET 60 MG PO ×2 (08:14→21:10)
[2021-03-01] MEDS: Sertraline HCL 50 MG TABLET PO (08:14)
[2021-03-01] MEDS: Ascorbic Acid 500 MG TABLET PO (08:14)
[2021-03-01] MEDS: Folic Acid 1 MG TABLET PO (08:15)
[2021-03-01] MEDS: 0.9 % Sodium Chloride Flush 3 ML SYRINGE IVFLUSH ×3 (08:19→21:10)
[2021-03-01] MEDS: Insulin Lispro 100 UNIT/ML 3 ML VIAL SUBCUT ×7 (08:20→21:11)
[2021-03-01] MEDS: cephALEXin 500 MG CAPSULE PO ×2 (10:43→21:10)
[2021-03-01] MEDS: methylPREDNISolone Sod Succ 125 MG/2 ML VIAL 60 MG IVPUSH ×2 (10:43→21:10)
--- NOTE | 2021-03-01 10:53 | P.PNIM_ITS ---
Subjective Subjective Date of Service: 03/01/21 Interval History: cc: sob improving, still with cough, not feeling well enough to go home yet Cardiovascular Cardiovascular: Reports no additional cardiovascular complaints Genitourinary Genitourinary: Reports no additional female genitourinary complaints Physical Exam Vital Signs: Vital Signs: Last Vital Signs Temp 97 F 03/01/21 08:09 Pulse 90 03/01/21 08:13 Resp 18 03/01/21 08:09 BP 148/67 H 03/01/21 08:13 Pulse Ox 92 03/01/21 08:09 Oxygen Flow Rate 3 02/24/21 15:06 Body Mass Index 37.7 General: AO X 3, no acute distress Resp:? diminihshed, crackles CVS: S1,S2,irregular, 1-2+ edema bilateral GI: soft, non tender, non distended Neuro:? motor grossly intact, alert Psych: appropriate affect, appropriate insight? Objective Data Active Medications Acetaminophen (Acetaminophen 325 Mg Tablet) 650 mg PO Q6H PRN PRN Reason: Pain, Mild (Pain Scale 1-3) Last Admin: 02/28/21 21:54 Dose: 650 mg Documented by: VALENTIN Albuterol Sulfate (Albuterol Sulfate 90 Mcg 8 Gm Inhaler) 2 puff INHALE Q4H PRN PRN Reason: sob Apixaban (Apixaban 5 Mg Tablet) 5 mg PO BID [facility] Last Admin: 03/01/21 08:13 Dose: 5 mg Documented by: LUIS MIGUEL Artificial Tears (Artificial Tears 15 Ml Drops) 2 drop EYE-BOTH Q4H PRN PRN Reason: dry eyes Ascorbic Acid (Ascorbic Acid 500 Mg Tablet) 500 mg PO DAILY [facility] Last Admin: 03/01/21 08:14 Dose: 500 mg Documented by: LUIS MIGUEL Cephalexin HCl (Cephalexin 500 Mg Capsule) 500 mg PO Q12H [facility] Last Admin: 03/01/21 10:43 Dose: 500 mg Documented by: LUIS MIGUEL Dextrose (Dextrose 50 % 25 Gm/50 Ml Vial) 25 gm IVPUSH Q15M PRN; Protocol PRN Reason: per Hypoglycemia Standing Ord. Diltiazem HCl (Diltiazem Hcl Cd 240 Mg Cap.Er.Deg) 240 mg PO DAILY [facility]; Protocol Last Admin: 03/01/21 08:13 Dose: 240 mg Documented by: LUIS MIGUEL Fenofibrate (Fenofibrate 160 Mg Tablet) 160 mg PO DAILY [facility] Last Admin: 03/01/21 08:12 Dose: 160 mg Documented by: LUIS MIGUEL Fluticasone/Vilanterol (Fluticasone/Vilanterol 200/25 Blst.W.Dev) 1 puff INHALE DAILY [facility] Last Admin: 03/01/21 08:11 Dose: 1 puff Documented by: EMILIANA Folic Acid (Folic Acid 1 Mg Tablet) 1 mg PO DAILY [facility] Last Admin: 03/01/21 08:15 Dose: 1 mg Documented by: LUIS MIGUEL Furosemide (Furosemide 20 Mg Tablet) 60 mg PO BID [facility]; Protocol Last Admin: 03/01/21 08:14 Dose: 60 mg Documented by: LUIS MIGUEL Gabapentin (Gabapentin 300 Mg Capsule) 300 mg PO BID [facility] Last Admin: 03/01/21 08:13 Dose: 300 mg Documented by: LUIS MIGUEL Glucose (Glucose Gel 15 Gm Gel..Gram.) 15 gm PO Q15M PRN; Protocol PRN Reason: per Hypoglycemia Standing Ord. Insulin Glargine (Insulin Glargine,Hum.Rec.Anlog 100 Unit/Ml 10 Ml Vial) 10 unit SUBCUT BEDTIME [facility] Last Admin: 02/28/21 21:57 Dose: 10 unit Documented by: VALENTIN Insulin Human Lispro (Insulin Lispro 100 Unit/Ml 3 Ml Vial) 0 unit SUBCUT QIDACHS [facility]; Protocol Last Admin: 03/01/21 08:20 Dose: 4 unit Documented by: LUIS MIGUEL Insulin Human Lispro (Insulin Lispro 100 Unit/Ml 3 Ml Vial) 5 unit SUBCUT TIDAC [facility] Last Admin: 03/01/21 08:21 Dose: 5 unit Documented by: LUIS MIGUEL Levothyroxine Sodium (Levothyroxine Sodium 50 Mcg Tablet) 50 mcg PO DAILY@0630 [facility] Last Admin: 03/01/21 05:52 Dose: 50 mcg Documented by: VALENTIN Lisinopril (Lisinopril 40 Mg Tablet) 40 mg PO DAILY [facility]; Protocol Last Admin: 03/01/21 08:12 Dose: 40 mg Documented by: LUIS MIGUEL Methylprednisolone Sodium Succinate (Methylprednisolone Sod Succ 125 Mg/2 Ml Vial) 60 mg IVPUSH Q12H [facility] Last Admin: 03/01/21 10:43 Dose: 60 mg Documented by: LUIS MIGUEL Omeprazole (Omeprazole 20 Mg Greta.) 20 mg PO DAILY@1600 [facility] Last Admin: 02/28/21 15:36 Dose: 20 mg Documented by: ANGEL Pharmacy Consult (Consult Rx Perform Med Rec) 1 each MISCELLANE ONCE PRN PRN Reason: Consult order Sertraline HCl (Sertraline Hcl 50 Mg Tablet) 50 mg PO DAILY [facility] Last Admin: 03/01/21 08:14 Dose: 50 mg Documented by: LUIS MIGUEL Sodium Chloride (0.9 % Sodium Chloride Flush 3 Ml Syringe) 3 ml IVFLUSH QSHIFT [facility] Last Admin: 03/01/21 08:19 Dose: 3 ml Documented by: LUIS MIGUEL Sulfasalazine (Sulfasalazine 500 Mg Tablet) 500 mg PO DAILY [facility] Last Admin: 03/01/21 08:12 Dose: 500 mg Documented by: LUIS MIGUEL Labs CBC & Chem 7: 02/28/21 06:32 02/28/21 06:32 Labs: Laboratory Results - last 24 hr 02/28/21 02/28/21 02/28/21 10:57 16:07 19:46 POC Glucose 230 H 208 H 211 H 03/01/21 07:30 POC Glucose 213 H Assessment and Plan (1) Acute respiratory failure with hypoxia: Status: Acute (2) Moderate persistent asthma: Status: Acute (3) COVID-19: Status: Acute (4) Diabetes: Status: Acute Assessment and Plan: 80F presented with sob, found to have covid Acute hypoxic respiratory failure secondary to COVID pneumonia in patient with moderate persistent asthma continue O2 support, wean as tolerated - down to 2L/min but still hypoxic on room air, inflammatory markers - improving (crp on admission 10.42, now 1.93), continue steroids ceftin for any bacterial coinfection High risk due to comorbidities of morbid obesity, diabetes not feeling up for discharge today but hopefully, if continues to improve likely discharge in 1-2 days Acute on chronic diastolic CHF diuresed well, back on po lasix monitor electrolytes echo with LV hypertrophy, normal EF, collapsable IVC Permanent atrial fibrillation Cardizem, apixaban Hypertension Lisinopril, Cardizem Rheumatoid arthritis Sulfasalazine Hypothyroid Synthroid History of recurrent pulmonary embolism Continue Eliquis DVT prophylaxis, on Eliquis Full code Quality Stroke Does the patient have a stroke diagnosis?: No VTE Prior VTE?: Yes VTE Risk Level:: Medical - moderate - high VTE Device Contraindication: Treatment Not Indicated VTE Drug Contraindication: N/A - Med Ordered
[2021-03-01 11:44] LABS: Glucose, Whole Blood 284 mg/dL (60-115)
[2021-03-01 16:04] LABS: Glucose, Whole Blood 244 mg/dL (60-115)
[2021-03-01] MEDS: Omeprazole 20 MG CAPSULE.DR PO (16:05)
--- NOTE | 2021-03-01 16:11 | PC.NURSE ---
Pt's O2 lowered from 2L to 1L per MD. MD wants her O2 to be greater than 90%.
[2021-03-01 20:01] LABS: Glucose, Whole Blood 217 mg/dL (60-115)
[2021-03-01] MEDS: Acetaminophen 325 MG TABLET 650 MG PO (21:09)
[2021-03-01] MEDS: Insulin Glargine,Hum.rec.anlog 100 UNIT/ML 10 ML VIAL 10 UNIT SUBCUT (21:12)
[2021-03-02] VITALS (9 sets, daily range): BP systolic 107–150; BP diastolic 56–100; PULSE 77–87; RESP 17–20; TEMP 35.9–37; O2SAT 90–93
[2021-03-02] MEDS: Levothyroxine Sodium 50 MCG TABLET PO (06:14)
[2021-03-02] MEDS: Fluticasone/Vilanterol 200/25 BLST.W.DEV 1 PUFF INHALE (07:56)
[2021-03-02 08:21] LABS: Glucose, Whole Blood 268 mg/dL (60-115)
[2021-03-02] MEDS: Apixaban 5 MG TABLET PO ×2 (08:25→21:21)
[2021-03-02] MEDS: methylPREDNISolone Sod Succ 125 MG/2 ML VIAL 60 MG IVPUSH ×2 (08:25→21:20)
[2021-03-02] MEDS: Gabapentin 300 MG CAPSULE PO ×2 (08:25→21:21)
[2021-03-02] MEDS: Ascorbic Acid 500 MG TABLET PO (08:25)
[2021-03-02] MEDS: Folic Acid 1 MG TABLET PO (08:25)
[2021-03-02] MEDS: lisinopriL 40 MG TABLET PO (08:26)
[2021-03-02] MEDS: Furosemide 20 MG TABLET 60 MG PO ×2 (08:26→21:21)
[2021-03-02] MEDS: sulfaSALAzine 500 MG TABLET PO (08:27)
[2021-03-02] MEDS: Sertraline HCL 50 MG TABLET PO (08:27)
[2021-03-02] MEDS: dilTIAZem HCL CD 240 MG CAP.ER.DEG PO (08:27)
[2021-03-02] MEDS: Fenofibrate 160 MG TABLET PO (08:27)
[2021-03-02] MEDS: Insulin Lispro 100 UNIT/ML 3 ML VIAL SUBCUT ×7 (08:28→21:22)
[2021-03-02] MEDS: 0.9 % Sodium Chloride Flush 3 ML SYRINGE IVFLUSH ×3 (08:31→21:24)
--- NOTE | 2021-03-02 09:40 | P.PNIM_ITS ---
Subjective Subjective Date of Service: 03/02/21 Interval History: cc: sob notes sifnificant improvement, just not feeling quite yet ready for discharge Cardiovascular Cardiovascular: Reports no additional cardiovascular complaints Respiratory Respiratory: Reports no additional respiratory complaints Physical Exam Vital Signs: Vital Signs: Last Vital Signs Temp 97.3 F 03/02/21 08:00 Pulse 85 03/02/21 08:27 Resp 19 03/02/21 08:00 BP 130/78 03/02/21 08:27 Pulse Ox 90 L 03/02/21 08:00 Oxygen Flow Rate 3 02/24/21 15:06 Body Mass Index 37.7 General: AO X 3, no acute distress Resp:? diminihshed, crackles CVS: S1,S2,irregular, 1-2+ edema bilateral GI: soft, non tender, non distended Neuro:? motor grossly intact, alert Psych: appropriate affect, appropriate insight? Objective Data Active Medications Acetaminophen (Acetaminophen 325 Mg Tablet) 650 mg PO Q6H PRN PRN Reason: Pain, Mild (Pain Scale 1-3) Last Admin: 03/01/21 21:09 Dose: 650 mg Documented by: BETH Albuterol Sulfate (Albuterol Sulfate 90 Mcg 8 Gm Inhaler) 2 puff INHALE Q4H PRN PRN Reason: sob Apixaban (Apixaban 5 Mg Tablet) 5 mg PO BID [facility] Last Admin: 03/02/21 08:25 Dose: 5 mg Documented by: LUIS MIGUEL Artificial Tears (Artificial Tears 15 Ml Drops) 2 drop EYE-BOTH Q4H PRN PRN Reason: dry eyes Ascorbic Acid (Ascorbic Acid 500 Mg Tablet) 500 mg PO DAILY [facility] Last Admin: 03/02/21 08:25 Dose: 500 mg Documented by: LUIS MIGUEL Cephalexin HCl (Cephalexin 500 Mg Capsule) 500 mg PO Q12H [facility] Last Admin: 03/01/21 21:10 Dose: 500 mg Documented by: BETH Dextrose (Dextrose 50 % 25 Gm/50 Ml Vial) 25 gm IVPUSH Q15M PRN; Protocol PRN Reason: per Hypoglycemia Standing Ord. Diltiazem HCl (Diltiazem Hcl Cd 240 Mg Cap.Er.Deg) 240 mg PO DAILY [facility]; Protocol Last Admin: 03/02/21 08:27 Dose: 240 mg Documented by: LUIS MIGUEL Fenofibrate (Fenofibrate 160 Mg Tablet) 160 mg PO DAILY [facility] Last Admin: 03/02/21 08:27 Dose: 160 mg Documented by: LUIS MIGUEL Fluticasone/Vilanterol (Fluticasone/Vilanterol 200/25 Blst.W.Dev) 1 puff INHALE DAILY [facility] Last Admin: 03/02/21 07:56 Dose: 1 puff Documented by: EMILIANA Folic Acid (Folic Acid 1 Mg Tablet) 1 mg PO DAILY [facility] Last Admin: 03/02/21 08:25 Dose: 1 mg Documented by: LUIS MIGUEL Furosemide (Furosemide 20 Mg Tablet) 60 mg PO BID [facility]; Protocol Last Admin: 03/02/21 08:26 Dose: 60 mg Documented by: LUIS MIGUEL Gabapentin (Gabapentin 300 Mg Capsule) 300 mg PO BID [facility] Last Admin: 03/02/21 08:25 Dose: 300 mg Documented by: LUIS MIGUEL Glucose (Glucose Gel 15 Gm Gel..Gram.) 15 gm PO Q15M PRN; Protocol PRN Reason: per Hypoglycemia Standing Ord. Insulin Glargine (Insulin Glargine,Hum.Rec.Anlog 100 Unit/Ml 10 Ml Vial) 10 unit SUBCUT BEDTIME [facility] Last Admin: 03/01/21 21:12 Dose: 10 unit Documented by: BETH Insulin Human Lispro (Insulin Lispro 100 Unit/Ml 3 Ml Vial) 0 unit SUBCUT QIDACHS [facility]; Protocol Last Admin: 03/02/21 08:28 Dose: 6 unit Documented by: LUIS MIGUEL Insulin Human Lispro (Insulin Lispro 100 Unit/Ml 3 Ml Vial) 5 unit SUBCUT TIDAC [facility] Last Admin: 03/02/21 08:28 Dose: 5 unit Documented by: LUIS MIGUEL Levothyroxine Sodium (Levothyroxine Sodium 50 Mcg Tablet) 50 mcg PO DAILY@0630 [facility] Last Admin: 03/02/21 06:14 Dose: 50 mcg Documented by: BETH Lisinopril (Lisinopril 40 Mg Tablet) 40 mg PO DAILY [facility]; Protocol Last Admin: 03/02/21 08:26 Dose: 40 mg Documented by: LUIS MIGUEL Methylprednisolone Sodium Succinate (Methylprednisolone Sod Succ 125 Mg/2 Ml Vial) 60 mg IVPUSH Q12H [facility] Last Admin: 03/02/21 08:25 Dose: 60 mg Documented by: LUIS MIGUEL Omeprazole (Omeprazole 20 Mg Capsule.) 20 mg PO DAILY@1600 [facility] Last Admin: 03/01/21 16:05 Dose: 20 mg Documented by: LUIS MIGUEL Pharmacy Consult (Consult Rx Perform Med Rec) 1 each MISCELLANE ONCE PRN PRN Reason: Consult order Sertraline HCl (Sertraline Hcl 50 Mg Tablet) 50 mg PO DAILY [facility] Last Admin: 03/02/21 08:27 Dose: 50 mg Documented by: LUIS MIGUEL Sodium Chloride (0.9 % Sodium Chloride Flush 3 Ml Syringe) 3 ml IVFLUSH QSHIFT [facility] Last Admin: 03/02/21 08:31 Dose: 3 ml Documented by: LUIS MIGUEL Sulfasalazine (Sulfasalazine 500 Mg Tablet) 500 mg PO DAILY [facility] Last Admin: 03/02/21 08:27 Dose: 500 mg Documented by: LUIS MIGUEL Labs CBC & Chem 7: 02/28/21 06:32 02/28/21 06:32 Labs: Laboratory Results - last 24 hr 03/01/21 03/01/21 03/01/21 11:39 15:58 19:53 POC Glucose 284 H 244 H 217 H 03/02/21 08:02 POC Glucose 268 H Microbiology Microbiology Results: Microbiology 02/24/21 16:17 Blood Culture - Final Blood - Venous No growth after 5 days. 02/24/21 16:17 Blood Culture - Final Blood - Venous No growth after 5 days. Assessment and Plan (1) Acute respiratory failure with hypoxia: Status: Acute (2) Moderate persistent asthma: Status: Acute (3) COVID-19: Status: Acute (4) Diabetes: Status: Acute Assessment and Plan: 80F presented with sob, found to have covid Acute hypoxic respiratory failure secondary to COVID pneumonia in patient with moderate persistent asthma continue O2 support, wean as tolerated - down to 2L/min but still hypoxic on room air, inflammatory markers - improving (crp on admission 10.42, now 1.93), continue steroids may need o2 on discharge continue ceftin for any bacterial coinfection High risk due to comorbidities of morbid obesity, diabetes not feeling up for discharge today but hopefully, if continues to improve likely discharge tomorrow Acute on chronic diastolic CHF diuresed well, back on po lasix monitor electrolytes echo with LV hypertrophy, normal EF, collapsable IVC Permanent atrial fibrillation Cardizem, apixaban Hypertension Lisinopril, Cardizem Rheumatoid arthritis Sulfasalazine Hypothyroid Synthroid History of recurrent pulmonary embolism Continue Eliquis DVT prophylaxis, on Eliquis Full code Quality Stroke Does the patient have a stroke diagnosis?: No VTE Prior VTE?: Yes VTE Risk Level:: Medical - moderate - high VTE Device Contraindication: Treatment Not Indicated VTE Drug Contraindication: N/A - Med Ordered
[2021-03-02 11:35] LABS: Glucose, Whole Blood 317 mg/dL (60-115)
[2021-03-02] MEDS: cephALEXin 500 MG CAPSULE PO ×2 (11:53→21:20)
[2021-03-02] MEDS: Omeprazole 20 MG CAPSULE.DR PO (16:00)
[2021-03-02 16:24] LABS: Glucose, Whole Blood 215 mg/dL (60-115)
[2021-03-02 20:00] LABS: Glucose, Whole Blood 245 mg/dL (60-115)
[2021-03-02] MEDS: Insulin Glargine,Hum.rec.anlog 100 UNIT/ML 10 ML VIAL 10 UNIT SUBCUT (21:23)
[2021-03-02] MEDS: Acetaminophen 325 MG TABLET 650 MG PO (21:24)
[2021-03-03 03:51] VITALS: BP 145/77; PULSE 68; RESP 18; TEMP 36.9; O2SAT 93
[2021-03-03] MEDS: Levothyroxine Sodium 50 MCG TABLET PO (06:12)
[2021-03-03 06:58] LABS: Hematocrit 45.8 % (37-47); Hemoglobin 14.9 g/dl (12.0-16.0); Mean Corpuscular HGB Conc 32.5 g/dl (31.0-35.0); Mean Corpuscular Hemoglobin 30.5 pg (27.0-33.0); Mean Corpuscular Volume 93.7 fL (80-98); Mean Platelet Volume 11.2 fL (9.4-12.3); Platelet Count 271 X10*3/uL (160-400); Red Blood Count 4.89 X10*6/uL (4.20-5.50); Red Cell Distribution Width 12.8 % (11.0-16.0); White Blood Count 13.1 X10*3/uL (4.8-10.8)
[2021-03-03 07:16] LABS: Anion Gap 15 (12-20); Blood Urea Nitrogen 64 mg/dL (9-16); C Reactive Protein 0.55 mg/dL (< or = 0.50); Calcium 9.2 mg/dL (8.4-10.2); Carbon Dioxide 35 mmol/L (22-29); Chloride 91 mmol/L (96-108); Estimated Glomerular Filt Rate 40; Glucose Fasting 265 mg/dL (60-99); Potassium 4.2 mmol/L (3.3-5.1); Sodium 137 mmol/L (135-145)
[2021-03-03 07:29] LABS: Glucose, Whole Blood 240 mg/dL (60-115)
[2021-03-03 07:44] VITALS: BP 128/73; PULSE 79; RESP 18; TEMP 35.9; O2SAT 92
[2021-03-03 08:08] VITALS: BP 128/73; PULSE 79
[2021-03-03] MEDS: Fenofibrate 160 MG TABLET PO (08:08)
[2021-03-03] MEDS: Sertraline HCL 50 MG TABLET PO (08:08)
[2021-03-03] MEDS: Folic Acid 1 MG TABLET PO (08:08)
[2021-03-03] MEDS: 0.9 % Sodium Chloride Flush 3 ML SYRINGE IVFLUSH (08:08)
[2021-03-03] MEDS: Apixaban 5 MG TABLET PO (08:08)
[2021-03-03] MEDS: Insulin Lispro 100 UNIT/ML 3 ML VIAL SUBCUT ×4 (08:08→12:05)
[2021-03-03] MEDS: lisinopriL 40 MG TABLET PO (08:08)
[2021-03-03 08:09] VITALS: BP 128/73; PULSE 79
[2021-03-03] MEDS: sulfaSALAzine 500 MG TABLET PO (08:09)
[2021-03-03] MEDS: Furosemide 20 MG TABLET 60 MG PO (08:09)
[2021-03-03] MEDS: Ascorbic Acid 500 MG TABLET PO (08:09)
[2021-03-03] MEDS: dilTIAZem HCL CD 240 MG CAP.ER.DEG PO (08:09)
[2021-03-03] MEDS: Gabapentin 300 MG CAPSULE PO (08:09)
[2021-03-03] MEDS: Fluticasone/Vilanterol 200/25 BLST.W.DEV 1 PUFF INHALE (08:10)
[2021-03-03 08:20] VITALS: O2SAT 91
--- NOTE | 2021-03-03 09:38 | PM.DS ---
DS: Providers Provider Date of Service: 03/03/21 Date of admission: 02/24/21 17:26 Primary care physician: Salud Lester MD DS: Diagnosis Discharge Diagnosis (1) Acute respiratory failure with hypoxia: Status: Acute (2) Moderate persistent asthma: Status: Acute (3) COVID-19: Status: Acute (4) Diabetes: Status: Acute DS: Summary Status at Discharge Cognitive/behavioral status at discharge: Patient was admitted for acute hypoxic respiratory failure secondary to COVID-19 pneumonia complicated by exacerbation of moderate persistent asthma. She was treated with IV Solu-Medrol, her oxygen was eventually weaned. Her inflammatory markers significantly improved. Her subjective shortness of breath significantly improved. Patient was also treated for acute on chronic diastolic CHF. She received IV Lasix with improvement. Echocardiogram then showed LV hypertrophy, normal EF high collapsible IVc, her Lasix was then change back to oral. Cefuroxime was added to cover any element of bacterial bronchitis. Patient is feeling much better now which she will be discharged home with 5 more days of cefuroxime. She will go back on her maintenance prednisone. Time Spent with Patient Time attestation: Total time spent providing and/or coordinating discharge services: Discharge coordination time: Greater than 30 minutes Quality: Stroke Does the patient have a stroke diagnosis?: No Physical Exam Vital Signs: Vital Signs: Last Vital Signs Temp 96.7 F L 03/03/21 07:44 Pulse 79 03/03/21 08:09 Resp 18 03/03/21 07:44 BP 128/73 03/03/21 08:09 Pulse Ox 91 L 03/03/21 08:20 Oxygen Flow Rate 3 02/24/21 15:06 Body Mass Index 37.7 General: AO X 3, no acute distress Resp:? diminihshed, crackles CVS: S1,S2,irregular, 1-2+ edema bilateral GI: soft, non tender, non distended Neuro:? motor grossly intact, alert Psych: appropriate affect, appropriate insight? DS: Data Data Completed and Pending Labs on day of discharge: Laboratory Results - last 24 hr 03/02/21 03/02/21 03/02/21 11:12 16:21 19:52 WBC RBC Hgb Hct MCV MCH MCHC RDW Plt Count MPV Absolute Nucleated RBC Nucleated RBC % (auto) Sodium Potassium Chloride Carbon Dioxide Anion Gap BUN Creatinine Estim Creat Clear Calc Estimated GFR POC Glucose 317 H 215 H 245 H Fasting Glucose Calcium C-Reactive Protein 03/03/21 03/03/21 03/03/21 06:27 06:27 07:25 WBC 13.1 H RBC 4.89 Hgb 14.9 Hct 45.8 MCV 93.7 MCH 30.5 MCHC 32.5 RDW 12.8 Plt Count 271 MPV 11.2 Absolute Nucleated RBC 0.000 Nucleated RBC % (auto) 0.0 Sodium 137 Potassium 4.2 Chloride 91 L Carbon Dioxide 35 H Anion Gap 15 BUN 64 H Creatinine 1.27 Estim Creat Clear Calc 42.0 Estimated GFR 40 POC Glucose 240 H Fasting Glucose 265 H Calcium 9.2 C-Reactive Protein 0.55 H Discharge Plan Discharge Patient Disposition: Home, Self-Care Discharge Diagnosis: covid Referrals: Salud Lester MD [Primary Care Provider] - 1 Week Discharge Medications: New cephalexin 500 mg Capsule 500 mg PO Q12H Qty: 10 RF: 0 Continued levothyroxine 50 mcg tablet 50 mcg PO QAM Qty: 90 RF: 3 glipizide 5 mg tablet 5 mg PO DAILY Qty: 90 RF: 3 albuterol sulfate 0.63 mg/3 mL solution for nebulization 0.63 mg inhalation Q4-6H PRN (Reason: shortness of breath or wheezing) Qty: 90 RF: 3 gabapentin 300 mg capsule 300 mg PO BID Qty: 180 RF: 3 lisinopril 40 mg tablet 40 mg PO DAILY Qty: 90 RF: 3 meclizine 25 mg tablet 25 mg PO DAILY PRN (Reason: dizziness) Qty: 30 RF: 1 furosemide 40 mg tablet 60 mg PO BID Qty: 270 RF: 3 prednisone 10 mg tablet 10 mg PO DAILY Qty: 30 RF: 0 Incruse Ellipta 62.5 mcg/actuation blister with device 1 puff PO DAILY RF: 0 sulfasalazine 500 mg tablet 500 mg PO DAILY RF: 0 (DME) blood-glucose meter Kit See Rx Instructions ea Not Applicable BID Qty: 1 RF: 0 (DME) blood sugar diagnostic Strip See Rx Instructions ea Not Applicable BID Qty: 10 RF: 0 diltiazem HCl 240 mg capsule,ext.rel 24h degradable 240 mg PO DAILY RF: 0 budesonide-formoterol 160-4.5 mcg/actuation HFA aerosol inhaler 1 puff inhalation BID RF: 0 pantoprazole 40 mg tablet,delayed release (DR/EC) 40 mg PO DAILY Qty: 90 RF: 3 sertraline 50 mg tablet 50 mg PO DAILY Qty: 90 RF: 3 Eliquis 5 mg tablet 5 mg PO BID Qty: 180 RF: 3 folic acid 1 mg tablet 1 mg PO DAILY Qty: 90 RF: 3 ascorbic acid (vitamin C) 500 mg tablet 500 mg PO DAILY RF: 0 Discharge Orders: Discharge Order (Routine); Ordered 03/03/21 Ordered By: aHm Sanchez Diet: advance to usual diet Activity on Discharge: As tolerated Stand Alone Forms: Patient Portal Discharge page Care Plan Goals: Recovery Health Concerns: Bronchitis, COVID-19 Plan of Treatment: Five more days of cefuroxime, can go back to maintenance steroids, should isolate for COVID-19 until 20 days from onset of symptoms Assessment: see above
[2021-03-03 11:24] LABS: Glucose, Whole Blood 290 mg/dL (60-115)
--- NOTE | 2021-03-03 11:24 | MHC.CM.PN ---
IMM 03/03/21 FEMALE 80 DX COVID+ is discharged to home today. LOUIE, and Colin will resume services. Her dtr is providing transportation to home.
[2021-03-03 12:00] VITALS: BP 105/64; PULSE 106; RESP 19; TEMP 36.1; O2SAT 94
[2021-03-03] MEDS: methylPREDNISolone Sod Succ 125 MG/2 ML VIAL 60 MG IVPUSH (12:04)
[2021-03-03] MEDS: cephALEXin 500 MG CAPSULE PO (12:05)
--- NOTE | 2021-03-03 13:39 | P.F2F_ITS ---
Service Date Service Date: 03/03/21 Reasons for Services Reason for intermediate: medication management, medication treatment and teach disease management Homebound: Leaving the home is medically contraindicated at this time without the asist of a device and/or another person due th the listed conditions above and below. Certification: Based on the above findings, I certify that this patient is confined to the home and needs intermittent intermediate care, physical therapy and/or speech therapy, or continues to need occupational therapy. The patient is under my care, and I have initiated the establishment of the plan of care. The patient will be followed by a physician who will periodically review the plan of care.
== END 2021-03-03 14:55 | disposition home or self-care (01) | DRG 177 ==
LOC: HO.ED 17:07 → HO.EDOVER 17:34 → HO.IMC 17:55
PROVIDERS: Admitting Provider Internal Medicine; Emergency Provider Emergency Medicine; PCP Internal Medicine; Visit Provider Internal Medicine
DX: U07.1 COVID-19 (principal); J12.82 Pneumonia due to coronavirus disease 2019; J96.01 Acute respiratory failure with hypoxia; I50.33 Acute on chronic diastolic (congestive) heart failure; I48.19 Other persistent atrial fibrillation; L97.812 Non-pressure chronic ulcer of other part of right lower leg with fat layer exposed; J45.41 Moderate persistent asthma with (acute) exacerbation; E78.5 Hyperlipidemia, unspecified; I11.0 Hypertensive heart disease with heart failure; E11.622 Type 2 diabetes mellitus with other skin ulcer; E66.01 Morbid (severe) obesity due to excess calories; E03.9 Hypothyroidism, unspecified; M06.9 Rheumatoid arthritis, unspecified; Z86.711 Personal history of pulmonary embolism; Z68.37 Body mass index [BMI] 37.0-37.9, adult; Z79.01 Long term (current) use of anticoagulants; Z79.890 Hormone replacement therapy; Z79.899 Other long term (current) drug therapy
CPT/HCPCS: 36415; 71045; 80048; 80076; 82803; 82947; 83605; 83615; 83735; 83880; 84484; 85025; 85027; 86140; 87040; 87635; 93005; 93306; 94640; 94660; 96365; 96375; 99222; 99284; 99285; J0696; J1940; J2405; J2930

== ENCOUNTER 2021-03-11 10:59 | Outpatient (REF) | payer MEDICARE, MEDICAID, SELFPAY ==
--- NOTE | ~2021-03-11 | XR_ITS ---
EXAMINATION: XR CHEST CLINICAL INFORMATION: Shortness of breath COMPARISON: None TECHNIQUE: 2 views of the chest were obtained. FINDINGS: There is mild cardiomegaly with prominent pulmonary vascularity. The lungs are expanded with haziness in both lung bases similar to previous study. The upper lungs are clear. There is mild blunting of left CP angle. No gross bony abnormality. XR/XR chest 2V IMPRESSION: Cardiomegaly with mild CHF. Cannot exclude underlying interstitial pneumonitis/infiltrate.
[2021-03-11 14:01] LABS: Hematocrit 41.2 % (37-47); Hemoglobin 13.1 g/dl (12.0-16.0); Mean Corpuscular HGB Conc 31.8 g/dl (31.0-35.0); Mean Corpuscular Hemoglobin 30.8 pg (27.0-33.0); Mean Corpuscular Volume 96.9 fL (80-98); Mean Platelet Volume 11.6 fL (9.4-12.3); Platelet Count 233 X10*3/uL (160-400); Red Blood Count 4.25 X10*6/uL (4.20-5.50); Red Cell Distribution Width 13.6 % (11.0-16.0); White Blood Count 10.1 X10*3/uL (4.8-10.8)
== END 2021-03-11 11:00 | disposition home or self-care (01) ==
LOC: HO.HMGCX 10:59
PROVIDERS: PCP Internal Medicine; Visit Provider Internal Medicine
DX: R06.02 Shortness of breath (principal); U07.1 COVID-19; J44.9 Chronic obstructive pulmonary disease, unspecified; I48.91 Unspecified atrial fibrillation; I11.0 Hypertensive heart disease with heart failure; I50.9 Heart failure, unspecified
CPT/HCPCS: 36415; 71046; 85027

== ENCOUNTER 2021-03-27 15:45 | Outpatient (REF) | payer MEDICARE, MEDICAID, SELFPAY ==
--- NOTE | ~2021-03-27 | XR_ITS ---
EXAMINATION: XR CHEST CLINICAL INFORMATION: Shortness of breath COMPARISON: Previous chest x-ray 03/11/2021 TECHNIQUE: 2 views of the chest were obtained. FINDINGS: The cardiac silhouette is enlarged but stable. There is pulmonary venous redistribution and increased perihilar attenuation questionable for mild CHF. The lungs are otherwise clear. There is no pleural effusion. There are degenerative changes of the spine. XR/XR chest 2V IMPRESSION: Enlarged cardiac silhouette and question mild CHF. Findings are similar to 03/11/2021 exam.
== END 2021-03-27 15:46 | disposition home or self-care (01) ==
LOC: HO.HMGCX 15:45
PROVIDERS: PCP Internal Medicine; Visit Provider Internal Medicine
DX: R06.02 Shortness of breath (principal)
CPT/HCPCS: 71046

== ENCOUNTER 2021-03-28 13:45 | Outpatient (REF) | payer MEDICARE, MEDICAID, SELFPAY ==
[2021-03-28 16:21] LABS: D Dimer 864 NG/ML
[2021-03-28 16:25] LABS: Alanine Aminotransferase 17 U/L (0-31); Albumin Level 3.8 g/dL (3.5-5.0); Alkaline Phosphatase 105 U/L (39-117); Anion Gap 14 (12-20); Aspartate Amino Transferase 20 U/L (5-31); Bilirubin Total 0.5 mg/dL (0.0-1.0); Blood Urea Nitrogen 22 mg/dL (9-16); Calcium 9.5 mg/dL (8.4-10.2); Carbon Dioxide 36 mmol/L (22-29); Chloride 100 mmol/L (96-108); Estimated Glomerular Filt Rate 47; Glucose Random 157 mg/dL (60-115); Potassium 4.9 mmol/L (3.3-5.1); Sodium 145 mmol/L (135-145); Total Protein 7.3 g/dL (6.5-8.0)
== END 2021-03-28 13:46 | disposition home or self-care (01) ==
LOC: HO.HMGCLDS 13:45
PROVIDERS: PCP Internal Medicine; Visit Provider Internal Medicine
DX: R06.02 Shortness of breath (principal); U07.1 COVID-19
CPT/HCPCS: 36415; 80053; 85379

== ENCOUNTER 2021-03-31 12:31 | Outpatient (REF) | payer MEDICARE, MEDICAID, SELFPAY ==
[2021-03-31 15:42] LABS: Anion Gap 13 (12-20); Blood Urea Nitrogen 25 mg/dL (9-16); Calcium 9.7 mg/dL (8.4-10.2); Carbon Dioxide 38 mmol/L (22-29); Chloride 97 mmol/L (96-108); Estimated Glomerular Filt Rate 45; Glucose Random 99 mg/dL (60-115); Potassium 4.6 mmol/L (3.3-5.1); Sodium 143 mmol/L (135-145)
[2021-03-31 15:48] LABS: B Type Natriuretic Peptide 123 pg/mL (<100)
== END 2021-03-31 12:32 | disposition home or self-care (01) ==
LOC: HO.LAB 12:31
PROVIDERS: PCP Internal Medicine; Referring Provider Physician Assistant; Visit Provider Internal Medicine Cardiovascular Disease
DX: R06.02 Shortness of breath (principal); I50.30 Unspecified diastolic (congestive) heart failure; I48.91 Unspecified atrial fibrillation
CPT/HCPCS: 36415; 80048; 83880; 93005; 99202

== ENCOUNTER 2021-04-02 14:31 | Inpatient (IN) | payer MEDICARE, MEDICAID, SELFPAY ==
--- NOTE | ~2021-04-02 | NM_ITS ---
Resting myocardial perfusion study INDICATION: Chest discomfort TECHNIQUE: The patient was injected with 30 mCi of technetium intravenously. Images were then obtained with SPECT gamma camera with gating. Images were obtained with and without CT attenuation. Total DLP 86 mGy-cm. Patient refused to undergo stress testing FINDINGS: Nonattenuated images show normal uptake of radiotracer in all segments of LV myocardium. There is suggestion of left ventricle hypertrophy. Attenuation corrected images show mildly reduced uptake in the distal septum, distal apex and apical wall of the LV myocardium. Gated study shows normal LV systolic function with LVEF of 63% with normal wall motion all segments. LV cavity is small CONCLUSION: Resting myocardial perfusion imaging shows normal myocardial perfusion
--- NOTE | ~2021-04-02 | XR_ITS ---
EXAMINATION: XR CHEST CLINICAL INFORMATION: Shortness of breath COMPARISON: Previous chest x-ray most recent 03/27/2021 TECHNIQUE: 2 views of the chest were obtained. FINDINGS: The cardiac silhouette is enlarged but stable. There is pulmonary venous redistribution and increased perihilar markings suggestive of mild CHF. There is no pleural effusion. There are degenerative changes of the spine. XR/XR chest 2V IMPRESSION: Enlarged cardiac silhouette and question mild CHF. Findings are similar to recent exam March 27 2021..
[2021-04-02 14:46] VITALS: BP 138/65; PULSE 89; RESP 18; TEMP 36.6; O2SAT 93; BMI 40.2
--- NOTE | 2021-04-02 15:49 | ECG_ITS ---
Test Reason : LOW O2 Blood Pressure : / mmHG Vent. Rate : 081 BPM Atrial Rate : 000 BPM P-R Int : 000 ms QRS Dur : 088 ms QT Int : 400 ms P-R-T Axes : 000 114 049 degrees QTc Int : 464 ms Atrial fibrillation Right axis deviation RSR' or QR pattern in V1 suggests right ventricular conduction delay Poor R wave progression Abnormal ECG No significant changes seen Referred By: Generic ED Physician Electronically Signed By:ALVERTO HUDSON MD
[2021-04-02 17:43] LABS: MANUAL DIFF FLAG NO
[2021-04-02 17:45] LABS: Basophils Percent Auto 0.7 % (0-2); Eosinophils Percent Auto 0.5 % (0-4); Hematocrit 40.4 % (37.0-47.0); Hemoglobin 12.5 g/dl (12.0-16.0); Imm Gran Abs Auto 0.05 X10*3/uL (0.00-0.03); Imm Gran Pct Auto 0.9 % (0.0-0.4); Lymphocytes Absolute Auto 1.6 X10*3/uL (1.2-4.9); Lymphocytes Percent Auto 27.9 % (20-40); Mean Corpuscular HGB Conc 30.9 g/dl (31.0-35.0); Mean Corpuscular Hemoglobin 30.9 pg (27.0-33.0); Mean Corpuscular Volume 99.8 fL (80.0-98.0); Monocytes Absolute Auto 0.7 X10*3/uL (0.1-1.2); Monocytes Percent Auto 11.9 % (2-11); Neutrophils Absolute Auto 3.26 x10*3/uL (2.0-8.3); Neutrophils Percent Auto 58.1 % (45-73); Platelet Count 172 X10*3/uL (160-400); Red Blood Count 4.05 X10*6/uL (4.20-5.50); Red Cell Distribution Width 14.2 % (11.0-16.0); White Blood Count 5.6 X10*3/uL (4.8-10.8)
[2021-04-02 17:52] LABS: Appearance Urine CLEAR; Color Urine YELLOW; Glucose Urine UA NEG (NEG); Leukocyte Esterase Urine NEG (NEG); Nitrite Urine NEG (NEG); Urine Blood NEG (NEG); Urine Ketones NEG (NEG); Urine Protein NEG (NEG-TRACE)
[2021-04-02 18:10] LABS: Anion Gap 13 (12-20); Blood Urea Nitrogen 17 mg/dL (9-16); Calcium 9.3 mg/dL (8.4-10.2); Carbon Dioxide 36 mmol/L (22-29); Chloride 100 mmol/L (96-108); Creatinine Clr Calc Pharmacy 60.6; Estimated Glomerular Filt Rate > 60; Glucose Random 84 mg/dL (60-115); Potassium 4.6 mmol/L (3.3-5.1); Sodium 144 mmol/L (135-145)
[2021-04-02 18:13] LABS: B Type Natriuretic Peptide 201 pg/mL (<100)
--- NOTE | 2021-04-02 20:10 | ED.SOB ---
HPI - SOB/Dyspnea General Chief Complaint: Dyspnea Stated Complaint: low oxygen level Time Seen by Provider: 04/02/21 20:03 Source: patient Mode of arrival: ambulatory Limitations: no limitations History of Present Illness HPI Narrative: Patient with history of atrial fibrillation with history of COVID in 02/18 had PE in the past when on Coumadin now she is on Eliquis, been having increased shortness of breath for last 1 year got worse after COVID has oxygen at home for CPAP at night lately she been using it during daytime when she ambulates [facility] noticed to have pulse ox of 86% at room air patient used to be on Lasix 60 mg twice daily changed to Bumex 2 mg twice daily by science faculty member on 03/31. Patient denies any orthopnea or PND no chest pain or palpitation she has significant leg swelling has gained weight echocardiogram done during last admission showed normal LV function with severe LVH and elevated LV filling pressure she also had a sleep apnea and she using CPAP regularly on 2 L oxygen Related Data Home Medications Medication Instructions Recorded Confirmed blood sugar diagnostic #10 ea 03/11/20 03/11/21 blood-glucose meter #1 ea 03/11/20 03/11/21 diltiazem HCl 240 mg 240 mg PO DAILY 03/11/20 04/02/21 capsule,extended release 24 hr, controlled ascorbic acid (vitamin C) 500 mg 500 mg PO DAILY 10/14/20 04/02/21 tablet acetaminophen 500 mg tablet 1,000 mg PO BID 04/02/21 04/02/21 albuterol sulfate 90 mcg/actuation 2 puff INHALATION Q4H PRN 04/02/21 04/02/21 aerosol inhaler gabapentin 300 mg capsule 300 mg PO BEDTIME 04/02/21 04/02/21 garlic 500 mg tablet 500 mg PO DAILY 04/02/21 04/02/21 levothyroxine 50 mcg tablet 50 mcg PO DAILY@0630 04/02/21 04/02/21 meloxicam 15 mg tablet 15 mg PO DAILY PRN 04/02/21 04/02/21 pantoprazole 40 mg tablet,delayed 40 mg PO DAILY@0600 04/02/21 04/02/21 release sulfasalazine 500 mg tablet 1 tab PO DAILY@1300 04/02/21 04/02/21 Previous Rx's Medication Instructions Recorded glipizide 5 mg tablet 5 mg PO DAILY #90 tab 05/06/20 albuterol sulfate 0.63 mg/3 mL 0.63 mg (3 mL) INHALATION Q4-6H 08/23/20 solution for nebulization PRN #90 ml lisinopril 40 mg tablet 40 mg PO DAILY #90 tab 10/22/20 meclizine 25 mg tablet 25 mg PO DAILY PRN #30 tab 10/23/20 apixaban 5 mg tablet (Eliquis) 5 mg PO BID #180 tab 02/05/21 folic acid 1 mg tablet 1 mg PO DAILY #90 tab 02/05/21 sertraline 50 mg tablet 50 mg PO DAILY #90 tab 03/25/21 budesonide-formoterol HFA 160 1 puff INHALATION BID #10.2 g 03/27/21 mcg-4.5 mcg/actuation aerosol inhaler umeclidinium 62.5 mcg/actuation 1 inh PO DAILY #30 ea 03/27/21 blister powder for inhalation (Incruse Ellipta) bumetanide 2 mg tablet 2 mg PO BID #60 tab 03/31/21 spironolactone 25 mg tablet 25 mg PO DAILY #30 tab 03/31/21 (Aldactone) Allergies Allergy/AdvReac Type Severity Reaction Status Date / Time atorvastatin [Lipitor] Allergy Unknown Unknown Verified 03/11/21 10:26 ciprofloxacin [From Cipro] Allergy Unknown Unknown Verified 03/11/21 10:26 ezetimibe [Zetia] Allergy Unknown unkno Verified 03/11/21 10:26 hydrochlorothiazide Allergy Unknown Unknown Verified 03/11/21 10:26 [From Avalide] Hytrin Allergy Unknown Unknown Verified 03/11/21 10:26 infliximab [From REMICADE] Allergy Unknown INFECTION Verified 03/11/21 10:26 irbesartan [From Avalide] Allergy Unknown Unknown Verified 03/11/21 10:26 metformin Allergy Unknown nausea Verified 03/11/21 10:26 nifedipine Allergy Unknown Unknown Verified 03/11/21 10:26 pravastatin Allergy Unknown stomach Verified 03/11/21 10:26 upset rosuvastatin [Crestor] Allergy Unknown Unknown Verified 03/11/21 10:26 valsartan [Diovan] Allergy Unknown Unknown Verified 03/11/21 10:26 warfarin [WARFARIN] Allergy Unknown THROAT Verified 03/11/21 10:26 SWELLING moxifloxacin [From Avelox] Allergy Unknown Verified 03/11/21 10:26 Review of Systems Review of Systems: Yes all other systems are reviewed and are negative [facility] Past Medical History Medical History (HFpEF) heart failure with preserved ejection fraction Atrial fibrillation Cervical radiculopathy due to degenerative joint disease of spine Conjunctivitis COPD (chronic obstructive pulmonary disease) Depression Diabetes Diastolic dysfunction with chronic heart failure Foot ulcer, right Hemorrhoids Hyperlipidemia Hypertension Laceration of skin Moderate persistent asthma Obesity Petechiae Physical deconditioning Recurrent pulmonary embolism Rheumatoid arthritis SOB (shortness of breath) Venous insufficiency Family History Family History Father No problems noted. Mother No problems noted. Social History Social History Household Members: Children Housing: House Do you presently have visiting nurse or other home services: Yes (granddaughter helps out. prev [employer] serv.) Alcohol intake: never Patient Tobacco Use Status: Never used Tobacco e-Cigarette/Vaping Use: Never Used Advance Directives: No Advance Directives Information Provided: Yes service: No Current occupational status: retired Physical Exam Vital Signs: Vital Signs: Last Vital Signs Temp 97.7 F 04/03/21 00:47 Pulse 71 04/03/21 00:47 Resp 28 H 04/03/21 00:47 BP 102/51 L 04/03/21 00:47 Pulse Ox 99 04/03/21 00:47 Oxygen Flow Rate 2 04/02/21 14:46 Body Mass Index 40.2 Appearance: Alert. Oriented X3. No acute distress. Obese Eyes: No pallor/icterus ENT: Pharynx normal. Oral Mucosa moist Neck: Normal inspection. Neck supple. CVS: Normal heart rate irregular irregular heart rate, Pulses normal. Respiratory: No respiratory distress. Equal air entry bilateral, no wheezing/rhonchi, few rales at the bases Abdomen: Soft and nontender. Bowel sounds are present, no mass palpable, no CVA tenderness Skin: Skin warm and dry. Normal skin color. Normal skin turgor. Extremities: 3+ lower extremity edema. No calf tenderness, healing wound on right norris with no signs of infection Neuro: Oriented X 3. No motor deficit. MDM - SOB/Dyspnea Medical Records Medical records narrative: Patient has significant fluid overload slightly elevated BNP as compared to the presentation likely low-level of BNP secondary to obesity. Will admit patient for IV diuresis. Lab Data Attestation: I reviewed the patient's lab results. Result diagrams: 04/02/21 17:36 04/02/21 17:36 Labs: Lab Results 04/02/21 04/02/21 04/02/21 Range/Units 17:36 17:36 17:36 WBC 5.6 (4.8-10.8) X10*3/uL RBC 4.05 L (4.20-5.50) X10*6/uL Hgb 12.5 (12.0-16.0) g/dl Hct 40.4 (37.0-47.0) % MCV 99.8 H (80.0-98.0) fL MCH 30.9 (27.0-33.0) pg MCHC 30.9 L (31.0-35.0) g/dl RDW 14.2 (11.0-16.0) % Plt Count 172 (160-400) X10*3/uL MPV 11.0 (9.4-12.3) fL Immature Gran % (Auto) 0.9 H (0.0-0.4) % Neut % (Auto) 58.1 (45-73) % Lymph % (Auto) 27.9 (20-40) % [place] % (Auto) 11.9 H (2-11) % Eos % (Auto) 0.5 (0-4) % Baso % (Auto) 0.7 (0-2) % Lymph # (Auto) 1.6 (1.2-4.9) X10*3/uL [place] # (Auto) 0.7 (0.1-1.2) X10*3/uL Eos # (Auto) 0.0 (0.0-0.4) X10*3/uL Baso # (Auto) 0.0 (0.0-0.2) X10*3/uL Abs Immat Gran (auto) 0.05 H (0.00-0.03) X10*3/uL Absolute Neuts (auto) 3.26 (2.0-8.3) x10*3/uL Absolute Nucleated RBC 0.000 (0.0-0.012) X10*3/uL Nucleated RBC % (auto) 0.0 (0.0-0.2) /100WBC PT (9.9-13.0) SEC INR (0.9-1.1) APTT (24.1-38.0) SEC Sodium 144 (135-145) mmol/L Potassium 4.6 (3.3-5.1) mmol/L Chloride 100 (96-108) mmol/L Carbon Dioxide 36 H (22-29) mmol/L Anion Gap 13 (12-20) BUN 17 H (9-16) mg/dL Creatinine 0.79 (0.5-1.4) mg/dL Estim Creat Clear Calc 60.6 Estimated GFR > 60 Random Glucose 84 (60-115) mg/dL Calcium 9.3 (8.4-10.2) mg/dL Troponin I High Sens (<3.5-17.0) ng/L B-Natriuretic Peptide 201 H (<100) pg/mL Urine Color Urine Appearance Urine pH (5.0-8.0) Ur Specific [employer] (1.005-1.025) Urine Protein (NEG-TRACE) MG/DL Urine Glucose (UA) (NEG) MG/DL Urine Ketones (NEG) MG/DL Urine Blood (NEG) Urine Nitrite (NEG) Ur Leukocyte Esterase (NEG) COVID-19 ([facility]ASIR) (Negative) COVID-19 Clin Com 04/02/21 04/02/21 04/02/21 Range/Units 17:36 21:10 21:10 WBC (4.8-10.8) X10*3/uL RBC (4.20-5.50) X10*6/uL Hgb (12.0-16.0) g/dl Hct (37.0-47.0) % MCV (80.0-98.0) fL MCH (27.0-33.0) pg MCHC (31.0-35.0) g/dl RDW (11.0-16.0) % Plt Count (160-400) X10*3/uL MPV (9.4-12.3) fL Immature Gran % (Auto) (0.0-0.4) % Neut % (Auto) (45-73) % Lymph % (Auto) (20-40) % [place] % (Auto) (2-11) % Eos % (Auto) (0-4) % Baso % (Auto) (0-2) % Lymph # (Auto) (1.2-4.9) X10*3/uL [place] # (Auto) (0.1-1.2) X10*3/uL Eos # (Auto) (0.0-0.4) X10*3/uL Baso # (Auto) (0.0-0.2) X10*3/uL Abs Immat Gran (auto) (0.00-0.03) X10*3/uL Absolute Neuts (auto) (2.0-8.3) x10*3/uL Absolute Nucleated RBC (0.0-0.012) X10*3/uL Nucleated RBC % (auto) (0.0-0.2) /100WBC PT 16.2 H (9.9-13.0) SEC INR 1.4 H (0.9-1.1) APTT 41.5 H (24.1-38.0) SEC Sodium (135-145) mmol/L Potassium (3.3-5.1) mmol/L Chloride (96-108) mmol/L Carbon Dioxide (22-29) mmol/L Anion Gap (12-20) BUN (9-16) mg/dL Creatinine (0.5-1.4) mg/dL Estim Creat Clear Calc Estimated GFR Random Glucose (60-115) mg/dL Calcium (8.4-10.2) mg/dL Troponin I High Sens 20.6 H* (<3.5-17.0) ng/L B-Natriuretic Peptide (<100) pg/mL Urine Color YELLOW Urine Appearance CLEAR Urine pH 6.0 (5.0-8.0) Ur Specific [employer] 1.010 (1.005-1.025) Urine Protein NEG (NEG-TRACE) MG/DL Urine Glucose (UA) NEG (NEG) MG/DL Urine Ketones NEG (NEG) MG/DL Urine Blood NEG (NEG) Urine Nitrite NEG (NEG) Ur Leukocyte Esterase NEG (NEG) COVID-19 (YASIR) (Negative) COVID-19 Clin Com 04/02/21 Range/Units 21:13 WBC (4.8-10.8) X10*3/uL RBC (4.20-5.50) X10*6/uL Hgb (12.0-16.0) g/dl Hct (37.0-47.0) % MCV (80.0-98.0) fL MCH (27.0-33.0) pg MCHC (31.0-35.0) g/dl RDW (11.0-16.0) % Plt Count (160-400) X10*3/uL MPV (9.4-12.3) fL Immature Gran % (Auto) (0.0-0.4) % Neut % (Auto) (45-73) % Lymph % (Auto) (20-40) % [place] % (Auto) (2-11) % Eos % (Auto) (0-4) % Baso % (Auto) (0-2) % Lymph # (Auto) (1.2-4.9) X10*3/uL [place] # (Auto) (0.1-1.2) X10*3/uL Eos # (Auto) (0.0-0.4) X10*3/uL Baso # (Auto) (0.0-0.2) X10*3/uL Abs Immat Gran (auto) (0.00-0.03) X10*3/uL Absolute Neuts (auto) (2.0-8.3) x10*3/uL Absolute Nucleated RBC (0.0-0.012) X10*3/uL Nucleated RBC % (auto) (0.0-0.2) /100WBC PT (9.9-13.0) SEC INR (0.9-1.1) APTT (24.1-38.0) SEC Sodium (135-145) mmol/L Potassium (3.3-5.1) mmol/L Chloride (96-108) mmol/L Carbon Dioxide (22-29) mmol/L Anion Gap (12-20) BUN (9-16) mg/dL Creatinine (0.5-1.4) mg/dL Estim Creat Clear Calc Estimated GFR Random Glucose (60-115) mg/dL Calcium (8.4-10.2) mg/dL Troponin I High Sens (<3.5-17.0) ng/L B-Natriuretic Peptide (<100) pg/mL Urine Color Urine Appearance Urine pH (5.0-8.0) Ur Specific [employer] (1.005-1.025) Urine Protein (NEG-TRACE) MG/DL Urine Glucose (UA) (NEG) MG/DL Urine Ketones (NEG) MG/DL Urine Blood (NEG) Urine Nitrite (NEG) Ur Leukocyte Esterase (NEG) COVID-19 (YASIR) Negative (Negative) COVID-19 Clin Com See Note ECG Data Attestation: I personally reviewed and interpreted this ECG as follows: Interpretation: Atrial fibrillation with ventricular rate 81 beats per minute right axis deviation no acute ST T wave changes no acute ischemia Discharge Plan Discharge Clinical Impression: Hypoxia Congestive heart failure Qualifiers: Heart failure type: systolic Heart failure chronicity: acute on chronic Qualified Code(s): I50.23 - Acute on chronic systolic (congestive) heart failure Patient Disposition: Admitted As Inpatient
[2021-04-02 20:20] VITALS: BP 128/56; PULSE 78; RESP 25; TEMP 36.4; O2SAT 97
[2021-04-02 21:21] VITALS: BP 117/63; PULSE 81; RESP 27; O2SAT 97
[2021-04-02] MEDS: Furosemide 40 MG/4 ML VIAL IVPUSH (21:21)
[2021-04-02 21:26] LABS: INTERNATIONAL NORM RATIO 1.4 (0.9-1.1); Prothrombin Time 16.2 SEC (9.9-13.0)
[2021-04-02 21:29] LABS: Partial Thromboplastin Time 41.5 SEC (24.1-38.0)
[2021-04-02 21:40] LABS: COVID-19 Test Negative (Negative); IDNOW Serial# 08D9AD1C
[2021-04-02 22:17] LABS: Troponin-I High Sensitivity 20.6 ng/L (<3.5-17.0)
--- NOTE | 2021-04-02 22:17 | PHA.MEDREC ---
Pharmacy Consult ? Medication Reconciliation Pharmacy has completed the medication reconciliation. Reports she already took night time medications. Reports only taking sulfasalazine once daily instead of BID, and also takes gabapentin at bedtime only. Lasix was replaced with bumetanide and spironolcatone. Patient's daughter believes she maybe allergic to either of the two medications; spironolactone or bumetanide. Mercy Mccormick, PharmD
[2021-04-02 23:25] LABS: Troponin-I High Sensitivity 20.9 ng/L (<3.5-17.0)
[2021-04-03] VITALS (14 sets, daily range): BP systolic 102–166; BP diastolic 51–88; PULSE 71–99; RESP 17–28; TEMP 36.2–36.9; O2SAT 93–99
[2021-04-03] MEDS: methylPREDNISolone Sod Succ 40 MG/ML VIAL IVPUSH ×3 (00:45→23:46)
[2021-04-03] MEDS: 0.9 % Sodium Chloride Flush 3 ML SYRINGE IVFLUSH ×3 (00:45→23:46)
--- NOTE | 2021-04-03 00:59 | PC.NURSE ---
Pt resting on stretcher with eyes closed in NAD, equal chest rise and fall bilaterally. Pt remains on environmental monitoring technician in rate controlled afib. Pt with purewick in place, draining appropriately. Pt awaiting bed assignment.
--- NOTE | 2021-04-03 05:10 | P.HPHOSP_ITS ---
History of Present Illness Date of Service: 04/02/21 Chief Complaint: Shortness of breath This is an 80-year-old female with past medical history of heart failure preserved ejection fraction, AFib, COPD, depression, diabetes, HLD, HTN, obesity, history of pulmonary emboli, and rheumatoid arthritis among other [facility] diseases who presents to the hospital with complaints of shortness of breath, hypoxia at wound clinic. Patient was at her wound clinic today when she developed significant shortness of breath, found to be hypoxic with O2 levels down to the high 70s and therefore sent to the hospital for further management. According to the patient she has been having shortness of breath for the past 2 weeks progressively worsened. She also has worsening lower extremity edema, she has orthopnea PND. She is also experiencing a cough increased from her baseline, as well as sputum production. She denies any fever, no chill, no abdominal pain nausea or vomiting, no diarrhea constipation, no urinary sympt oms, no numbness tingling. On arrival to the ED patient found to have temp of 97.6?, respiratory rate of 18, satting 90% on room air, plates on 2 L of oxygen satting 93%. Of note patient recovered from COVID-19 pneumonia back in January but is not on baseline oxygen. Patient was also seen by Cardiology on 02/28, patient on baseline Lasix but was switched to Bumex at that time, reports that she took Bumex yesterday but it did not make her feel well, caused her palpitations and dizziness and therefore would like to go back to her Lasix. Labs are significant for WBC count of 5.6, PT of 16.2 INR of 1.4, troponin of 20.6 repeat 20.9, BNP of 201, UA negative. Chest x-ray shows CHF Patient will be admitted for further management Review of Systems Review of Systems: Yes all other systems are reviewed and are negative [facility] Medical History (HFpEF) heart failure with preserved ejection fraction Atrial fibrillation Cervical radiculopathy due to degenerative joint disease of spine Conjunctivitis COPD (chronic obstructive pulmonary disease) Depression Diabetes Diastolic dysfunction with chronic heart failure Foot ulcer, right Hemorrhoids Hyperlipidemia Hypertension Laceration of skin Moderate persistent asthma Obesity Petechiae Physical deconditioning Recurrent pulmonary embolism Rheumatoid arthritis SOB (shortness of breath) Venous insufficiency Family History Father No problems noted. Mother No problems noted. Pertinent family history: No pertinent history Social History Household Members: Children Housing: House Do you presently have visiting nurse or other home services: Yes (granddaughter helps out. prev [facility] serv.) Alcohol intake: never Patient Tobacco Use Status: Never used Tobacco e-Cigarette/Vaping Use: Never Used Advance Directives: No Advance Directives Information Provided: Yes service: No Current occupational status: retired Meds Allergies Allergy/AdvReac Type Severity Reaction Status Date / Time atorvastatin [Lipitor] Allergy Unknown Unknown Verified 03/11/21 10:26 ciprofloxacin [From Cipro] Allergy Unknown Unknown Verified 03/11/21 10:26 ezetimibe [Zetia] Allergy Unknown unkno Verified 03/11/21 10:26 hydrochlorothiazide Allergy Unknown Unknown Verified 03/11/21 10:26 [From Avalide] Hytrin Allergy Unknown Unknown Verified 03/11/21 10:26 infliximab [From REMICADE] Allergy Unknown INFECTION Verified 03/11/21 10:26 irbesartan [From Avalide] Allergy Unknown Unknown Verified 03/11/21 10:26 metformin Allergy Unknown nausea Verified 03/11/21 10:26 nifedipine Allergy Unknown Unknown Verified 03/11/21 10:26 pravastatin Allergy Unknown stomach Verified 03/11/21 10:26 upset rosuvastatin [Crestor] Allergy Unknown Unknown Verified 03/11/21 10:26 valsartan [Diovan] Allergy Unknown Unknown Verified 03/11/21 10:26 warfarin [WARFARIN] Allergy Unknown THROAT Verified 03/11/21 10:26 SWELLING moxifloxacin [From Avelox] Allergy Unknown Verified 03/11/21 10:26 Active Medications: Current Medications Acetaminophen (Acetaminophen 325 Mg Tablet) 650 mg PO Q6H PRN PRN Reason: Pain, Mild (Pain Scale 1-3) Albuterol Sulfate (Albuterol Sulfate (0.042%) 1.25 Mg/3 Ml Vial.Neb) 0.63 mg INHALE Q4H PRN PRN Reason: shortness of breath or wheezing Albuterol/Ipratropium (Albuterol/Iprat 2.5/0.5mg 3 Ml Ampul.Neb) 3 ml INHALE RQ4H WHILE AWAKE [facility] Albuterol/Ipratropium (Albuterol/Iprat 2.5/0.5mg 3 Ml Ampul.Neb) 3 ml INHALE RQ4H PRN PRN Reason: Shortness of Breath/Wheezing Apixaban (Apixaban 5 Mg Tablet) 5 mg PO BID [facility] Ascorbic Acid (Ascorbic Acid 500 Mg Tablet) 500 mg PO DAILY [facility] Diltiazem HCl (Diltiazem Hcl Cd 240 Mg Cap.Er.Deg) 240 mg PO DAILY [facility]; Protoc ol Docusate Sodium (Docusate Sodium 100 Mg Capsule) 100 mg PO DAILY PRN PRN Reason: Constipation Folic Acid (Folic Acid 1 Mg Tablet) 1 mg PO DAILY [facility] Furosemide (Furosemide 40 Mg/4 Ml Vial) 40 mg IVPUSH BIDWM [facility]; Protocol Gabapentin (Gabapentin 300 Mg Capsule) 300 mg PO BEDTIME [facility] Levothyroxine Sodium (Levothyroxine Sodium 50 Mcg Tablet) 50 mcg PO DAILY@0630 [facility] Lisinopril (Lisinopril 40 Mg Tablet) 40 mg PO DAILY [facility]; Protocol Meclizine HCl (Meclizine Hcl 25 Mg Tablet) 25 mg PO DAILY PRN PRN Reason: dizziness Methylprednisolone Sodium Succinate (Methylprednisolone Sod Succ 40 Mg/Ml Vial) 40 mg IVPUSH Q12H [facility] Last Admin: 04/03/21 00:45 Dose: 40 mg Documented by: Naproxen (Naproxen 500 Mg Tablet) 500 mg PO BID PRN PRN Reason: Pain Non-Formulary Medication (Umeclidinium [Incruse Ellipta]) 1 inhalation PO DAILY [facility] Omeprazole (Omeprazole 20 Mg Capsule.Dr) 20 mg PO DAILY@0600 [facility] Ondansetron HCl (Ondansetron Hcl 4 Mg/2 Ml Vial) 4 mg IVPUSH Q8H PRN PRN Reason: Nausea and Vomiting Pharmacy Consult (Consult Rx Perform Med Rec) 1 each MISCELLANE ONCE PRN PRN Reason: Consult order Sertraline HCl (Sertraline Hcl 50 Mg Tablet) 50 mg PO DAILY [facility] Sodium Chloride (0.9 % Sodium Chloride Flush 3 Ml Syringe) 3 ml IVFLUSH QSHIFT [facility] Last Admin: 04/03/21 00:45 Dose: 3 ml Documented by: Spironolactone (Spironolactone 25 Mg Tablet) 25 mg PO DAILY [facility]; Protocol Sulfasalazine (Sulfasalazine 500 Mg Tablet) 500 mg PO DAILY@1300 [facility] Home Medications Medication Instructions Recorded Confirmed Last Taken Type blood sugar diagnostic #10 ea 03/11/20 03/11/21 Unknown History blood-glucose meter #1 ea 03/11/20 03/11/21 Unknown History diltiazem HCl 240 mg 240 mg PO DAILY 03/11/20 04/02/21 04/02/21 History capsule,extended release 24 hr, controlled ascorbic acid (vitamin C) 500 mg 500 mg PO DAILY 10/14/20 04/02/21 04/02/21 History tablet acetaminophen 500 mg tablet 1,000 mg PO BID 04/02/21 04/02/21 04/02/21 History albuterol sulfate 90 mcg/actuation 2 puff INHALATION Q4H PRN 04/02/21 04/02/21 04/02/21 History aerosol inhaler gabapentin 300 mg capsule 300 mg PO BEDTIME 04/02/21 04/02/21 04/02/21 History garlic 500 mg tablet 500 mg PO DAILY 04/02/21 04/02/21 04/02/21 History levothyroxine 50 mcg tablet 50 mcg PO DAILY@0630 04/02/21 04/02/21 04/02/21 History meloxicam 15 mg tablet 15 mg PO DAILY PRN 04/02/21 04/02/21 Unknown History pantoprazole 40 mg tablet,delayed 40 mg PO DAILY@0600 04/02/21 04/02/21 04/02/21 History release sulfasalazine 500 mg tablet 1 tab PO DAILY@1300 04/02/21 04/02/21 04/02/21 History Physical Exam Vital Signs and Narrative: Vital Signs: Last Vital Signs Temp 97.7 F 04/03/21 00:47 Pulse 71 04/03/21 00:47 Resp 28 H 04/03/21 00:47 BP 102/51 L 04/03/21 00:47 Pulse Ox 99 04/03/21 00:47 Oxygen Flow Rate 2 04/02/21 14:46 Body Mass Index 40.2 Const: Other: Obese General: cooperative and no acute distress Orientation/consciousness: patient oriented x3 Eyes: General: appearance normal, both eyes and all related structures Pupils: Equal, round and reactive pupils present Resp: Effort & Inspection: normal respiratory effort, able to speak in complete sentences and abnormal respiratory pattern Auscultation: clear to auscultation bilaterally Cardio: Rate: regular rate Rhythm: regular rhythm GI: Palpation (GI): Soft to palpation Auscultation: normal bowel sounds Skin: General skin exam: no rashes or lesions noted Neuro: General: patient oriented x3 Cranial nerves: Yes Equal, round and reactive pupils present Cognition (Neuro): normal cognition Extrem: Other: 2+ pitting edema bilaterally General: Yes normal to inspection Results Labs CBC and Chem 7: 04/02/21 17:36 04/02/21 17:36 Labs: Laboratory Results - last 24 hr 04/02/21 04/02/21 04/02/21 17:36 17:36 17:36 MCV 99.8 H MCH 30.9 MCHC 30.9 L RDW 14.2 Plt Count 172 MPV 11.0 Immature Gran % (Auto) 0.9 H Neut % (Auto) 58.1 Lymph % (Auto) 27.9 [place] % (Auto) 11.9 H Eos % (Auto) 0.5 Baso % (Auto) 0.7 Lymph # (Auto) 1.6 [place] # (Auto) 0.7 Eos # (Auto) 0.0 Baso # (Auto) 0.0 Abs Immat Gran (auto) 0.05 H Absolute Neuts (auto) 3.26 Absolute Nucleated RBC 0.000 Nucleated RBC % (auto) 0.0 PT INR APTT Anion Gap 13 Estim Creat Clear Calc 60.6 Estimated GFR > 60 Random Glucose 84 Calcium 9.3 Troponin I High Sens B-Natriuretic Peptide 201 H Urine Color Urine Appearance Urine pH Ur Specific [place] Urine Protein Urine Glucose (UA) Urine Ketones Urine Blood Urine Nitrite Ur Leukocyte Esterase COVID-19 ([facility]) COVID-19 Clin Com 04/02/21 04/02/21 04/02/21 17:36 21:10 21:10 MCV MCH MCHC RDW Plt Count MPV Immature Gran % (Auto) Neut % (Auto) Lymph % (Auto) [place] % (Auto) Eos % (Auto) Baso % (Auto) Lymph # (Auto) [place] # (Auto) Eos # (Auto) Baso # (Auto) Abs Immat Gran (auto) Absolute Neuts (auto) Absolute Nucleated RBC Nucleated RBC % (auto) PT 16.2 H INR 1.4 H APTT 41.5 H Anion Gap Estim Creat Clear Calc Estimated GFR Random Glucose Calcium Troponin I High Sens 20.6 H* B-Natriuretic Peptide Urine Color YELLOW Urine Appearance CLEAR Urine pH 6.0 Ur Specific [place] 1.010 Urine Protein NEG Urine Glucose (UA) NEG Urine Ketones NEG Urine Blood NEG Urine Nitrite NEG Ur Leukocyte Esterase NEG COVID-19 ([facility]) COVID-19 Clin Com 04/02/21 04/02/21 21:13 22:56 MCV MCH MCHC RDW Plt Count MPV Immature Gran % (Auto) Neut % (Auto) Lymph % (Auto) [place] % (Auto) Eos % (Auto) Baso % (Auto) Lymph # (Auto) [place] # (Auto) Eos # (Auto) Baso # (Auto) Abs Immat Gran (auto) Absolute Neuts (auto) Absolute Nucleated RBC Nucleated RBC % (auto) PT INR APTT Anion Gap Estim Creat Clear Calc Estimated GFR Random Glucose Calcium Troponin I High Sens 20.9 H* B-Natriuretic Peptide Urine Color Urine Appearance Urine pH Ur Specific [place] Urine Protein Urine Glucose (UA) Urine Ketones Urine Blood Urine Nitrite Ur Leukocyte Esterase COVID-19 ([facility]) Negative COVID-19 Clin Com See Note Imaging Radiologist's Impressions: Impressions Chest X-Ray 04/02/21 16:06 IMPRESSION: Enlarged cardiac silhouette and question mild CHF. Findings are similar to recent exam March 27 2021.. Assessment and Plan (1) CHF exacerbation: Status: Acute (2) COPD exacerbation: Status: Acute (3) Acute respiratory failure with hypoxia: Status: Acute 80-year-old female with past medical history of COPD, CHF, AFib among others who presents to the hospital with complaints of shortness of breath and hypoxia found to have CHF as well as COPD exacerbation # acute hypoxic respiratory failure - most likely multifactorial secondary to CHF as well as COPD - has evidence of volume overload, lower extremity edema, chest x-ray indicative of pulmonary congestion, orthopnea PND, as well as cough, sputum production - no evidence of pneumonia - will start her on treatment for both COPD with steroids and DuoNebs, as well as CHF with Lasix IV - monitor respiratory status, titrate O2 off as tolerated as patient does not use oxygen at baseline # CHF exacerbation - has orthopnea, PND, lower extremity edema, dyspnea, and chest x-ray indicative of pulmonary congestion - has elevated BNP, most likely falsely low due to her obesity - will start her on low-sodium diet, strict I&O, daily I&O - Lasix 40 IV b.i.d. (patient does not want to be on Bumex as it made her feel unwell) - recent echocardiogram done at the end of January shows ejection fraction of more than 70%, - cardiology consult # COPD exacerbation - dyspnea, increased cough, increased sputum production - no evidence of pneumonia - history of COVID-19 in January - will start her on IV steroids, DuoNeb p.r.n. as well as schedule #History of AFib - continue Eliquis, and diltiazem # hypertension -continue lisinopril, diltiazem, spinal act own # hypothyroidism - continue levothyroxine # diabetes - hold oral antihyperglycemics - will add low-dose sliding scale insulin - diabetic diet DVT prophylaxis: Eliquis Quality Stroke Does the patient have a stroke diagnosis?: No VTE Prior VTE?: No VTE Risk Level:: Medical - moderate - high VTE Device Contraindication: Treatment Not Indicated VTE Drug Contraindication: N/A - Med Ordered
--- NOTE | 2021-04-03 05:30 | PC.NURSE ---
Pt alert and oriented x4, calm and cooperative. Pt denies pain. Pt states SOB is improved at rest, pt remains on oxygen via nasal cannula and tolerating well. IV intact and flushes well. Vitals stable. Pt remains on pure wick, voided 500ml over night. Pt remains on tele monitor. Report given to DUNG Mcfarland.
[2021-04-03] MEDS: Omeprazole 20 MG CAPSULE.DR PO (05:58)
[2021-04-03] MEDS: Levothyroxine Sodium 50 MCG TABLET PO (05:58)
[2021-04-03 07:52] LABS: MANUAL DIFF FLAG NO
[2021-04-03 07:56] LABS: Basophils Percent Auto 0.5 % (0-2); Hematocrit 40.7 % (37.0-47.0); Hemoglobin 12.4 g/dl (12.0-16.0); Imm Gran Abs Auto 0.03 X10*3/uL (0.00-0.03); Imm Gran Pct Auto 0.7 % (0.0-0.4); Lymphocytes Absolute Auto 0.8 X10*3/uL (1.2-4.9); Lymphocytes Percent Auto 17.2 % (20-40); Mean Corpuscular HGB Conc 30.5 g/dl (31.0-35.0); Mean Corpuscular Hemoglobin 30.2 pg (27.0-33.0); Mean Platelet Volume 11.4 fL (9.4-12.3); Monocytes Absolute Auto 0.1 X10*3/uL (0.1-1.2); Monocytes Percent Auto 2.5 % (2-11); Neutrophils Absolute Auto 3.45 x10*3/uL (2.0-8.3); Neutrophils Percent Auto 79.1 % (45-73); Platelet Count 173 X10*3/uL (160-400); Red Blood Count 4.11 X10*6/uL (4.20-5.50); Red Cell Distribution Width 14.2 % (11.0-16.0); White Blood Count 4.4 X10*3/uL (4.8-10.8)
[2021-04-03] MEDS: Albuterol/Iprat 2.5/0.5MG 3 ML AMPUL.NEB INHALE ×3 (07:57→15:23)
--- NOTE | 2021-04-03 08:36 | P.CDIC_ITS ---
CDI Concurrent Query Documentation Clarification: PHYSICIAN'S DOCUMENTATION REQUEST Date of Query: 04/03/21 0836 Patient Name: Camille Andrade Admit Date: 04/02/21 Dear Doctor, A review of the medical record indicates additional documentation may be needed. Please review below and update the documentation accordingly. Risk Factors/Clinical Indicators/Treatments BMI 40.2 has elevated BNP most likely falsely low due to her obesity. If possible, please provide an associated diagnosis related to the abnormal BMI, such as: For a BMI >= 40: * Overweight * Obesity * Due to excess calories * Drug induced * Due to other cause * Severe or Morbid Obesity * With alveolar hypoventilation * Without alveolar hypoventilation Or: * BMI is not significant * Other (please specify) * Unable to determine Use of terms such as suspected, likely, concern for, or probable (associated with a specific diagnosis that is being evaluated, monitored, or treated as if it exists) are acceptable and can be coded in the inpatient setting, when documented at the time of discharge. Thank you, Delia Castelan [facility], CDIS Extension: [phone] Please use your independent medical judgment in providing your response. THIS QUERY IS PART OF THE PERMANENT MEDICAL RECORD Provider Response: Other Other Diagnosis: Increased BMI secondary to excess caloric intake(morbid obesity)
[2021-04-03 08:41] LABS: Anion Gap 13 (12-20); Blood Urea Nitrogen 20 mg/dL (9-16); Calcium 9.2 mg/dL (8.4-10.2); Carbon Dioxide 36 mmol/L (22-29); Chloride 99 mmol/L (96-108); Creatinine Clr Calc Pharmacy 50.9; Estimated Glomerular Filt Rate 57; Glucose Random 201 mg/dL (60-115); Potassium 4.7 mmol/L (3.3-5.1); Sodium 143 mmol/L (135-145)
[2021-04-03] MEDS: Ascorbic Acid 500 MG TABLET PO (09:18)
[2021-04-03] MEDS: Folic Acid 1 MG TABLET PO (09:18)
[2021-04-03] MEDS: Sertraline HCL 50 MG TABLET PO (09:18)
[2021-04-03] MEDS: lisinopriL 40 MG TABLET PO (09:18)
[2021-04-03] MEDS: Spironolactone 25 MG TABLET PO (09:19)
[2021-04-03] MEDS: Apixaban 5 MG TABLET PO ×2 (09:19→20:16)
[2021-04-03] MEDS: Furosemide 40 MG/4 ML VIAL IVPUSH (09:19)
[2021-04-03] MEDS: dilTIAZem HCL CD 240 MG CAP.ER.DEG PO (09:19)
--- NOTE | 2021-04-03 09:40 | MHC.CM.PN ---
CM MET WITH PT WHO REPORTS SHE LIVES WITH HER SON AND HAS ASSISTANCE WITH SOME CARE PT REPORTS SHE DOES MUCH POSSIBLE INDEPENDENTLY BUT HAS A ORDER PROCESSING SPECIALIST WELL PT REPORTS SHE WAS ACTIVE WITH [facility] FOR WOUND CARE BUT THEY WERE DISCONTINUED. PT REPORTS SHE IS STILL ACTIVE WITH THE WOUND CLINIC AT [facility] PT SAYS SHE HAS A WALKER AND A CANE WELL A SHOWER CHAIR. PT CONFIRMS HER PCP IS ATILIO WHEATLEY IMM DELIVERED PT DECLINED CM OFFER TO CONTACT FAMILY AND SAYS THEY WILL BE IN LATER TODAY CURRENT DC PLAN IS HOME WITH RESUMPTION OF ORDER PROCESSING SPECIALIST AND WOUND CLINIC SERVICES FAMILY TO TRANSPORT
[2021-04-03] MEDS: Furosemide 200 MG in 0.9 % Sodium Chloride 80 ML IVCONT (12:59)
[2021-04-03] MEDS: sulfaSALAzine 500 MG TABLET PO (12:59)
--- NOTE | 2021-04-03 13:43 | P.CONCA_ITS ---
History of Present Illness History of Present Illness Date of Service: 04/03/21 Requesting physician: Elkin Dow Chief complaint: Acute hypoxic resp failure, chf Narrative: I was requested to see Camille in cardiology consultation today for hypoxic respiratory failure. This is a 80-year-old female why recently saw in the office with progressive shortness of breath. At that time she appeared to be mildly fluid overloaded and we switched her oral Lasix to Bumex therapy. She says she did not like this change in therapy and thinks that she is allergic to this medication. However she present hospital progressive shortness of breath after she was noted to be hypoxic in the wound clinic. She was referred here. She was noted to have findings consistent with probably congestive heart failure pulmonary vascular congestion as well as elevated BNP and leg edema. She has also progressive shortness of breath and orthopneic symptoms. Her she also has underlying COPD and recently suffered from COVID. She has had no recent pulmonary consultation. She has history of chronic atrial fibrillation and has been managed with rate control by her former strategic analyst. She was recently referred to me for further management. She is currently on oral anticoagulation with apixaban. Currently switch to IV Lasix 40 mg twice a day. Intake and output chart has not been well marked Review of Systems Constitutional: Constitutional: Denies chills, Reports fatigue, Denies fever(s) and Reports snoring Eyes: Eyes: Reports no additional eye complaints Cardiovascular: Cardiovascular: Denies chest pain, Reports leg edema, Denies radiating jaw, neck or arm pain, Denies palpitations, Reports dyspnea on exertion and Reports orthopnea Respiratory: Respiratory: Reports cough, Reports dyspnea on exertion and Reports snoring Gastrointestinal: Gastrointestinal: Reports no additional gastrointestinal complaints Musculoskeletal: Musculoskeletal: Reports no additional musculoskeletal complaints Integumentary/Breasts: Skin/Breast: Reports system reviewed and no additional complaints, except as docu Neurologic: Reports system reviewed and no additional complaints, except as documented Psychiatric: Psychiatric: Reports no additional psychiatric complaints Endocrine: Endocrine: Reports no additional endocrine complaints, Reports fatigue and Denies palpitations PMFSH Past Medical History Medical History (HFpEF) heart failure with preserved ejection fraction Atrial fibrillation Cervical radiculopathy due to degenerative joint disease of spine Conjunctivitis COPD (chronic obstructive pulmonary disease) Depression Diabetes Diastolic dysfunction with chronic heart failure Foot ulcer, right Hemorrhoids Hyperlipidemia Hypertension Laceration of skin Moderate persistent asthma Obesity Petechiae Physical deconditioning Recurrent pulmonary embolism Rheumatoid arthritis SOB (shortness of breath) Venous insufficiency Family History Family History Father No problems noted. Mother No problems noted. Social History Social History Household Members: Family Housing: House Do you presently have visiting nurse or other home services: No Alcohol intake: never Patient Tobacco Use Status: Never used Tobacco e-Cigarette/Vaping Use: Never Used service: No Current occupational status: retired Meds Allergies Allergy/AdvReac Type Severity Reaction Status Date / Time atorvastatin [Lipitor] Allergy Unknown Unknown Verified 03/11/21 10:26 ciprofloxacin [From Cipro] Allergy Unknown Unknown Verified 03/11/21 10:26 ezetimibe [Zetia] Allergy Unknown unkno Verified 03/11/21 10:26 hydrochlorothiazide Allergy Unknown Unknown Verified 03/11/21 10:26 [From Avalide] Hytrin Allergy Unknown Unknown Verified 03/11/21 10:26 infliximab [From REMICADE] Allergy Unknown INFECTION Verified 03/11/21 10:26 irbesartan [From Avalide] Allergy Unknown Unknown Verified 03/11/21 10:26 metformin Allergy Unknown nausea Verified 03/11/21 10:26 nifedipine Allergy Unknown Unknown Verified 03/11/21 10:26 pravastatin Allergy Unknown stomach Verified 03/11/21 10:26 upset rosuvastatin [Crestor] Allergy Unknown Unknown Verified 03/11/21 10:26 valsartan [Diovan] Allergy Unknown Unknown Verified 03/11/21 10:26 warfarin [WARFARIN] Allergy Unknown THROAT Verified 03/11/21 10:26 SWELLING moxifloxacin [From Avelox] Allergy Unknown Verified 03/11/21 10:26 Active Medications: Current Medications Acetaminophen (Acetaminophen 325 Mg Tablet) 650 mg PO Q6H PRN PRN Reason: Pain, Mild (Pain Scale 1-3) Albuterol Sulfate (Albuterol Sulfate (0.042%) 1.25 Mg/3 Ml Vial.Neb) 0.63 mg INHALE Q4H PRN PRN Reason: shortness of breath or wheezing Albuterol/Ipratropium (Albuterol/Iprat 2.5/0.5mg 3 Ml Ampul.Neb) 3 ml INHALE RQ4H WHILE AWAKE [facility] Last Admin: 04/03/21 11:16 Dose: 3 ml Documented by: Albuterol/Ipratropium (Albuterol/Iprat 2.5/0.5mg 3 Ml Ampul.Neb) 3 ml INHALE RQ4H PRN PRN Reason: Shortness of Breath/Wheezing Apixaban (Apixaban 5 Mg Tablet) 5 mg PO BID [facility] Last Admin: 04/03/21 09:19 Dose: 5 mg Documented by: Ascorbic Acid (Ascorbic Acid 500 Mg Tablet) 500 mg PO DAILY [facility] Last Admin: 04/03/21 09:18 Dose: 500 mg Documented by: Diltiazem HCl (Diltiazem Hcl Cd 240 Mg Cap.Er.Deg) 240 mg PO DAILY [facility]; Protocol Last Admin: 04/03/21 09:19 Dose: 240 mg Documented by: Docusate Sodium (Docusate Sodium 100 Mg Capsule) 100 mg PO DAILY PRN PRN Reason: Constipation Folic Acid (Folic Acid 1 Mg Tablet) 1 mg PO DAILY [facility] Last Admin: 04/03/21 09:18 Dose: 1 mg Documented by: Gabapentin (Gabapentin 300 Mg Capsule) 300 mg PO BEDTIME [facility] Furosemide 200 mg/ Sodium (Chloride) 100 mls @ 5 mls/hr IVCONT .Q20H [facility] Last Admin: 04/03/21 12:59 Dose: 10 mg/hr, 5 mls/hr Documented by: Levothyroxine Sodium (Levothyroxine Sodium 50 Mcg Tablet) 50 mcg PO DAILY@0630 [facility] Last Admin: 04/03/21 05:58 Dose: 50 mcg Documented by: Lisinopril (Lisinopril 40 Mg Tablet) 40 mg PO DAILY [facility]; Protocol Last Admin: 04/03/21 09:18 Dose: 40 mg Documented by: Meclizine HCl (Meclizine Hcl 25 Mg Tablet) 25 mg PO DAILY PRN PRN Reason: dizziness Methylprednisolone Sodium Succinate (Methylprednisolone Sod Succ 40 Mg/Ml Vial) 40 mg IVPUSH Q12H [facility] Last Admin: 04/03/21 12:59 Dose: 40 mg Documented by: Naproxen (Naproxen 500 Mg Tablet) 500 mg PO BID PRN PRN Reason: Pain Omeprazole (Omeprazole 20 Mg Capsule.) 20 mg PO DAILY@0600 [facility] Last Admin: 04/03/21 05:58 Dose: 20 mg Documented by: Ondansetron HCl (Ondansetron Hcl 4 Mg/2 Ml Vial) 4 mg IVPUSH Q8H PRN PRN Reason: Nausea and Vomiting Pharmacy Consult (Consult Rx Perform Med Rec) 1 each MISCELLANE ONCE PRN PRN Reason: Consult order Sertraline HCl (Sertraline Hcl 50 Mg Tablet) 50 mg PO DAILY [facility] Last Admin: 04/03/21 09:18 Dose: 50 mg Documented by: Sodium Chloride (0.9 % Sodium Chloride Flush 3 Ml Syringe) 3 ml IVFLUSH QSHIFT [facility] Last Admin: 04/03/21 09:20 Dose: 3 ml Documented by: Spironolactone (Spironolactone 25 Mg Tablet) 25 mg PO DAILY [facility]; Protocol Last Admin: 04/03/21 09:19 Dose: 25 mg Documented by: Sulfasalazine (Sulfasalazine 500 Mg Tablet) 500 mg PO DAILY@1300 [facility] Last Admin: 04/03/21 12:59 Dose: 500 mg Documented by: Tiotropium [place] (Tiotropium [place] 18 Mcg Cap.W.Dev) 1 puff INHALE RDAILY [facility] Last Admin: 04/03/21 08:17 Dose: Not Given Documented by: Home Medications Medication Instructions Recorded Confirmed Last Taken Type blood sugar diagnostic #10 ea 03/11/20 03/11/21 Unknown History blood-glucose meter #1 ea 03/11/20 03/11/21 Unknown History diltiazem HCl 240 mg 240 mg PO DAILY 03/11/20 04/02/21 04/02/21 History capsule,extended release 24 hr, controlled ascorbic acid (vitamin C) 500 mg 500 mg PO DAILY 10/14/20 04/02/21 04/02/21 History tablet acetaminophen 500 mg tablet 1,000 mg PO BID 04/02/21 04/02/21 04/02/21 History albuterol sulfate 90 mcg/actuation 2 puff INHALATION Q4H PRN 04/02/21 04/02/21 04/02/21 History aerosol inhaler gabapentin 300 mg capsule 300 mg PO BEDTIME 04/02/21 04/02/21 04/02/21 History garlic 500 mg tablet 500 mg PO DAILY 1104/02/21 04/02/21 History levothyroxine 50 mcg tablet 50 mcg PO DAILY@0630 04/02/21 04/02/21 04/02/21 History meloxicam 15 mg tablet 15 mg PO DAILY PRN 04/02/21 04/02/21 Unknown History pantoprazole 40 mg tablet,delayed 40 mg PO DAILY@0600 04/02/21 04/02/21 04/02/21 History release sulfasalazine 500 mg tablet 1 tab PO DAILY@1300 04/02/21 04/02/21 04/02/21 Histo ry Physical Exam Vital Signs: Vital Signs: Last Vital Signs Temp 98.5 F 04/03/21 12:00 Pulse 95 04/03/21 12:00 Resp 18 04/03/21 07:32 BP 166/76 H 04/03/21 12:00 Pulse Ox 95 04/03/21 12:00 Oxygen Flow Rate 2 04/02/21 14:46 Body Mass Index 40.2 Const: General: cooperative, alert, awake and in distress moderate and respiratory Nutritional Appearance: obese Orientation/consciousness: patient oriented x3 HENMT: Head: Yes normocephalic and Yes atraumatic Neck: Neck: Yes trachea midline, Yes supple and Yes other (Difficult to visualize jugular venous distention) Resp: Effort & Inspection: normal respiratory effort Auscultation: no rales, no wheezes and diminished lung sounds Cardio: Rhythm: abnormal rhythm irregularly irregular Heart sounds: S1 normal heart sound present, S2 normal heart sound present, no click and no gallops GI: Inspection: Yes Abdominal panniculus present and Yes obesity Auscultation: normal bowel sounds Skin: General skin exam: no rashes or lesions noted Neuro: General: patient oriented x3 and no focal motor deficits Extrem: General: No clubbing, No cyanosis, Yes edema and Yes venous stasis dermatitis Results Labs and Meds Result diagrams: 04/03/21 07:39 04/03/21 07:39 Lab results: Laboratory Results - last 24 hr 04/02/21 04/02/21 04/02/21 17:36 17:36 17:36 WBC 5.6 RBC 4.05 L Hgb 12.5 Hct 40.4 MCV 99.8 H MCH 30.9 MCHC 30.9 L RDW 14.2 Plt Count 172 MPV 11.0 Immature Gran % (Auto) 0.9 H Neut % (Auto) 58.1 Lymph % (Auto) 27.9 [place] % (Auto) 11.9 H Eos % (Auto) 0.5 Baso % (Auto) 0.7 Lymph # (Auto) 1.6 [place] # (Auto) 0.7 Eos # (Auto) 0.0 Baso # (Auto) 0.0 Abs Immat Gran (auto) 0.05 H Absolute Neuts (auto) 3.26 Absolute Nucleated RBC 0.000 Nucleated RBC % (auto) 0.0 PT INR APTT Sodium 144 Potassium 4.6 Chloride 100 Carbon Dioxide 36 H Anion Gap 13 BUN 17 H Creatinine 0.79 Estim Creat Clear Calc 60.6 Estimated GFR > 60 Random Glucose 84 Calcium 9.3 Troponin I High Sens B-Natriuretic Peptide 201 H Urine Color Urine Appearance Urine pH Ur Specific [place] Urine Protein Urine Glucose (UA) Urine Ketones Urine Blood Urine Nitrite Ur Leukocyte Esterase COVID-19 (YASIR) COVID-Funding [place] 04/02/21 04/02/21 04/02/21 17:36 21:10 21:10 WBC RBC Hgb Hct MCV MCH MCHC RDW Plt Count MPV Immature Gran % (Auto) Neut % (Auto) Lymph % (Auto) [place] % (Auto) Eos % (Auto) Baso % (Auto) Lymph # (Auto) [place] # (Auto) Eos # (Auto) Baso # (Auto) Abs Immat Gran (auto) Absolute Neuts (auto) Absolute Nucleated RBC Nucleated RBC % (auto) PT 16.2 H INR 1.4 H APTT 41.5 H Sodium Potassium Chloride Carbon Dioxide Anion Gap BUN Creatinine Estim Creat Clear Calc Estimated GFR Random Glucose Calcium Troponin I High Sens 20.6 H* B-Natriuretic Peptide Urine Color YELLOW Urine Appearance CLEAR Urine pH 6.0 Ur Specific [place] 1.010 Urine Protein NEG Urine Glucose (UA) NEG Urine Ketones NEG Urine Blood NEG Urine Nitrite NEG Ur Leukocyte Esterase NEG COVID-19 (YASIR) COVIDAnyLeaf 04/02/21 04/02/21 04/03/21 21:13 22:56 07:39 WBC 4.4 L RBC 4.11 L Hgb 12.4 Hct 40.7 MCV 99.0 H MCH 30.2 MCHC 30.5 L RDW 14.2 Plt Count 173 MPV 11.4 Immature Gran % (Auto) 0.7 H Neut % (Auto) 79.1 H Lymph % (Auto) 17.2 L [place] % (Auto) 2.5 Eos % (Auto) 0.0 Baso % (Auto) 0.5 Lymph # (Auto) 0.8 L [place] # (Auto) 0.1 Eos # (Auto) 0.0 Baso # (Auto) 0.0 Abs Immat Gran (auto) 0.03 Absolute Neuts (auto) 3.45 Absolute Nucleated RBC 0.000 Nucleated RBC % (auto) 0.0 PT INR APTT Sodium Potassium Chloride Carbon Dioxide Anion Gap BUN Creatinine Estim Creat Clear Calc Estimated GFR Random Glucose Calcium Troponin I High Sens 20.9 H* B-Natriuretic Peptide Urine Color Urine Appearance Urine pH Ur Specific [place] Urine Protein Urine Glucose (UA) Urine Ketones Urine Blood Urine Nitrite Ur Leukocyte Esterase COVID-19 (YASIR) Negative COVID-19 Clin Com See Note 04/03/21 07:39 WBC RBC Hgb Hct MCV MCH MCHC RDW Plt Count MPV Immature Gran % (Auto) Neut % (Auto) Lymph % (Auto) [place] % (Auto) Eos % (Auto) Baso % (Auto) Lymph # (Auto) [place] # (Auto) Eos # (Auto) Baso # (Auto) Abs Immat Gran (auto) Absolute Neuts (auto) Absolute Nucleated RBC Nucleated RBC % (auto) PT INR APTT Sodium 143 Potassium 4.7 Chloride 99 Carbon Dioxide 36 H Anion Gap 13 BUN 20 H Creatinine 0.94 Estim Creat Clear Calc 50.9 Estimated GFR 57 Random Glucose 201 H Calcium 9.2 Troponin I High Sens B-Natriuretic Peptide Urine Color Urine Appearance Urine pH Ur Specific [place] Urine Protein Urine Glucose (UA) Urine Ketones Urine Blood Urine Nitrite Ur Leukocyte Esterase COVID-19 (YASIR) COVID-19 Clin Com EKG shows atrial fibrillation with right axis deviation with suggestion of probably right ventricular hypertrophy Imaging Radiologist's impression: Impressions Chest X-Ray 04/02/21 16:06 IMPRESSION: Enlarged cardiac silhouette and question mild CHF. Findings are similar to recent exam March 27 2021.. Assessment and Plan (1) Acute respiratory failure with hypoxia: Status: Acute Patient who progressively having shortness of breath over the last couple of months admitted again with worsening shortness of breath and hypoxemia. This appears to be are proportion to her decompensated congestive heart failure. There is definitely a small component of decompensated congestive heart failure. However pulmonary consult should be obtained to evaluate for interstitial involvement related to recent COVID infection. Continue IV diuresis. Would switch to Lasix drip at 10 mg an hour. Strict intake and output chart needs to be pursued. Add Aldactone 12.5 mg to her regimen. She thinks that she is allergic to Bumex therapy and would not want to try it. We discussed about potential rhythm management, however she wants to defer it. Will continue to follow with you (2) Atrial fibrillation: Status: Acute Atrial fibrillation with adequate rate control. Has had persistent atrial fibrillation for long period time with significant left atrial enlargement. Unlikely to achieve rhythm control but may be tried if she remains significantly short of breath and limited with overall heart failure syndrome. However she does not want to pursue rhythm control at this point time. Continue rate control therapy. Rate is adequately controlled. Continue full oral anticoagulation with Eliquis. Will follow with the Procedures Date of Service Date of Service: 04/03/21
--- NOTE | 2021-04-03 15:32 | HO.PM.IMPN ---
Subjective Subjective Date of Service: 04/03/21 Interval History: No acute events overnight; breathing somewhat improved per patient Review of Systems Denies chest pain Denies nausea vomiting diarrhea Denies shortness of breath Physical Exam Vital Signs: Vital Signs: Last Vital Signs Temp 98.5 F 04/03/21 12:00 Pulse 75 04/03/21 15:25 Resp 18 04/03/21 07:32 BP 166/76 H 04/03/21 12:00 Pulse Ox 95 04/03/21 12:00 Oxygen Flow Rate 2 04/02/21 14:46 Body Mass Index 40.2 Const: Other: No acute distress HENMT: Other: Membranes moist oropharynx clear Resp: Other: Diminished at bases with diffuse expiratory wheezes heard Cardio: Other: No S4; positive S1-S2; no S3 murmurs or gallops GI: Other: Obese/soft nontender note that also Neuro: Other: Cranial nerves 2-12 grossly intact as tested. Motor is 5/5 all extremities. Sensation intact. Extrem: Other: Positive edema bilaterally Objective Data Active Medications Acetaminophen (Acetaminophen 325 Mg Tablet) 650 mg PO Q6H PRN PRN Reason: Pain, Mild (Pain Scale 1-3) Albuterol Sulfate (Albuterol Sulfate (0.042%) 1.25 Mg/3 Ml Vial.Neb) 0.63 mg INHALE Q4H PRN PRN Reason: shortness of breath or wheezing Albuterol/Ipratropium (Albuterol/Iprat 2.5/0.5mg 3 Ml Ampul.Neb) 3 ml INHALE RQ4H WHILE AWAKE [facility] [place] Last Admin: 04/03/21 15:23 Dose: 3 ml Documented by: NORIS Albuterol/Ipratropium (Albuterol/Iprat 2.5/0.5mg 3 Ml Ampul.Neb) 3 ml INHALE RQ4H PRN PRN Reason: Shortness of Breath/Wheezing Apixaban (Apixaban 5 Mg Tablet) 5 mg PO BID [facility] [place] Last Admin: 04/03/21 09:19 Dose: 5 mg Documented by: CAROLE Ascorbic Acid (Ascorbic Acid 500 Mg Tablet) 500 mg PO DAILY [facility] Last Admin: 04/03/21 09:18 Dose: 500 mg Documented by: CAROLE Diltiazem HCl (Diltiazem Hcl Cd 240 Mg Cap.Er.Deg) 240 mg PO DAILY [facility]; Protocol Last Admin: 04/03/21 09:19 Dose: 240 mg Documented by: CAROLE Docusate Sodium (Docusate Sodium 100 Mg Capsule) 100 mg PO DAILY PRN PRN Reason: Constipation Folic Acid (Folic Acid 1 Mg Tablet) 1 mg PO DAILY [facility] Last Admin: 04/03/21 09:18 Dose: 1 mg Documented by: CAROLE Gabapentin (Gabapentin 300 Mg Capsule) 300 mg PO BEDTIME [facility] Furosemide 200 mg/ Sodium (Chloride) 100 mls @ 5 mls/hr IVCONT .Q20H [facility] Last Admin: 04/03/21 12:59 Dose: 10 mg/hr, 5 mls/hr Documented by: CAROLE Levothyroxine Sodium (Levothyroxine Sodium 50 Mcg Tablet) 50 mcg PO DAILY@0630 [facility] Last Admin: 04/03/21 05:58 Dose: 50 mcg Documented by: CHARLI Lisinopril (Lisinopril 40 Mg Tablet) 40 mg PO DAILY [facility]; Protocol Last Admin: 04/03/21 09:18 Dose: 40 mg Documented by: CAROLE Meclizine HCl (Meclizine Hcl 25 Mg Tablet) 25 mg PO DAILY PRN PRN Reason: dizziness Methylprednisolone Sodium Succinate (Methylprednisolone Sod Succ 40 Mg/Ml Vial) 40 mg IVPUSH Q12H [facility] Last Admin: 04/03/21 12:59 Dose: 40 mg Documented by: CAROLE Naproxen (Naproxen 500 Mg Tablet) 500 mg PO BID PRN PRN Reason: Pain Omeprazole (Omeprazole 20 Mg Capsule.) 20 mg PO DAILY@0600 [facility] [place] Last Admin: 04/03/21 05:58 Dose: 20 mg Documented by: CHARLI Ondansetron HCl (Ondansetron Hcl 4 Mg/2 Ml Vial) 4 mg IVPUSH Q8H PRN PRN Reason: Nausea and Vomiting Pharmacy Consult (Consult Rx Perform Med Rec) 1 each MISCELLANE ONCE PRN PRN Reason: Consult order Sertraline HCl (Sertraline Hcl 50 Mg Tablet) 50 mg PO DAILY [facility] [place] Last Admin: 04/03/21 09:18 Dose: 50 mg Documented by: CAROLE Sodium Chloride (0.9 % Sodium Chloride Flush 3 Ml Syringe) 3 ml IVFLUSH QSHIFT [facility] [place] Last Admin: 04/03/21 09:20 Dose: 3 ml Documented by: CAROLE Spironolactone (Spironolactone 25 Mg Tablet) 25 mg PO DAILY [facility] [place]; Protocol Last Admin: 04/03/21 09:19 Dose: 25 mg Documented by: CAROLE Sulfasalazine (Sulfasalazine 500 Mg Tablet) 500 mg PO DAILY@1300 [facility] [place] Last Admin: 04/03/21 12:59 Dose: 500 mg Documented by: CAROLE Tiotropium [place] (Tiotropium [place] 18 Mcg Cap.W.Dev) 1 puff INHALE RDAILY [facility] [place] Last Admin: 04/03/21 08:17 Dose: Not Given Documented by: EMILIANA Non-Admin Reason: Med Not Available Labs CBC & Chem 7: 04/03/21 07:39 04/03/21 07:39 Labs: Laboratory Results - last 24 hr 04/02/21 04/02/21 04/02/21 17:36 17:36 17:36 MCV 99.8 H MCH 30.9 MCHC 30.9 L RDW 14.2 Plt Count 172 MPV 11.0 Immature Gran % (Auto) 0.9 H Neut % (Auto) 58.1 Lymph % (Auto) 27.9 [place] % (Auto) 11.9 H Eos % (Auto) 0.5 Baso % (Auto) 0.7 Lymph # (Auto) 1.6 [place] # (Auto) 0.7 Eos # (Auto) 0.0 Baso # (Auto) 0.0 Abs Immat Gran (auto) 0.05 H Absolute Neuts (auto) 3.26 Absolute Nucleated RBC 0.000 Nucleated RBC % (auto) 0.0 PT INR APTT Anion Gap 13 Estim Creat Clear Calc 60.6 Estimated GFR > 60 Random Glucose 84 Calcium 9.3 Troponin I High Sens B-Natriuretic Peptide 201 H Urine Color Urine Appearance Urine pH Ur Specific [place] Urine Protein Urine Glucose (UA) Urine Ketones Urine Blood Urine Nitrite Ur Leukocyte Esterase COVID-19 (YASIR) COVID-19 Clin Com 04/02/21 04/02/21 04/02/21 17:36 21:10 21:10 MCV MCH MCHC RDW Plt Count MPV Immature Gran % (Auto) Neut % (Auto) Lymph % (Auto) [place] % (Auto) Eos % (Auto) Baso % (Auto) Lymph # (Auto) [place] # (Auto) Eos # (Auto) Baso # (Auto) Abs Immat Gran (auto) Absolute Neuts (auto) Absolute Nucleated RBC Nucleated RBC % (auto) PT 16.2 H INR 1.4 H APTT 41.5 H Anion Gap Estim Creat Clear Calc Estimated GFR Random Glucose Calcium Troponin I High Sens 20.6 H* B-Natriuretic Peptide Urine Color YELLOW Urine Appearance CLEAR Urine pH 6.0 Ur Specific [place] 1.010 Urine Protein NEG Urine Glucose (UA) NEG Urine Ketones NEG Urine Blood NEG Urine Nitrite NEG Ur Leukocyte Esterase NEG COVID-19 (YASIR) COVID-19 [place] 04/02/21 04/02/21 04/03/21 21:13 22:56 07:39 MCV 99.0 H MCH 30.2 MCHC 30.5 L RDW 14.2 Plt Count 173 MPV 11.4 Immature Gran % (Auto) 0.7 H Neut % (Auto) 79.1 H Lymph % (Auto) 17.2 L [place] % (Auto) 2.5 Eos % (Auto) 0.0 Baso % (Auto) 0.5 Lymph # (Auto) 0.8 L [place] # (Auto) 0.1 Eos # (Auto) 0.0 Baso # (Auto) 0.0 Abs Immat Gran (auto) 0.03 Absolute Neuts (auto) 3.45 Absolute Nucleated RBC 0.000 Nucleated RBC % (auto) 0.0 PT INR APTT Anion Gap Estim Creat Clear Calc Estimated GFR Random Glucose Calcium Troponin I High Sens 20.9 H* B-Natriuretic Peptide Urine Color Urine Appearance Urine pH Ur Specific [place] Urine Protein Urine Glucose (UA) Urine Ketones Urine Blood Urine Nitrite Ur Leukocyte Esterase COVID-19 (YASIR) Negative COVID-19 Clin Com See Note 04/03/21 07:39 MCV MCH MCHC RDW Plt Count MPV Immature Gran % (Auto) Neut % (Auto) Lymph % (Auto) [place] % (Auto) Eos % (Auto) Baso % (Auto) Lymph # (Auto) [place] # (Auto) Eos # (Auto) Baso # (Auto) Abs Immat Gran (auto) Absolute Neuts (auto) Absolute Nucleated RBC Nucleated RBC % (auto) PT INR APTT Anion Gap 13 Estim Creat Clear Calc 50.9 Estimated GFR 57 Random Glucose 201 H Calcium 9.2 Troponin I High Sens B-Natriuretic Peptide Urine Color Urine Appearance Urine pH Ur Specific [place] Urine Protein Urine Glucose (UA) Urine Ketones Urine Blood Urine Nitrite Ur Leukocyte Esterase COVID-19 (YASIR) COVID-19 Clin Com Assessment and Plan (1) COPD exacerbation: Status: Acute (2) Congestive heart failure: Status: Acute Assessment and Plan: 80-year-old female with past medical history of COPD, CHF, AFib presents to the hospital with complaints of shortness of breath and hypoxia. 1. Decompensated CHF Seen by cardiology who recommends Lasix drip at 10 milligrams/hour Continue cardiac diet and follow response to therapies Recent echo 02/18 shows hyperdynamic EF of 70% 2. COPD exacerbation Query component of post COVID syndrome. Would continue with steroids and DuoNeb therapies. Titrate O2 to maintain sats above 92% Pulmonary consult 3. Persistent atrial fibrillation Rate control adequate; continue telemetry. Continue Eliquis/calcium channel elkin as ordered. Adjust as indicated 4. Hypertension Continue lisinopril, diltiazem, Aldactone 5. Hypothyroidism Continue levothyroxine; check TSH in a.m. 6. Type 2 DM Restart glipizide at 5 mg daily Cover with sliding scale; adjust as indicated DVT prophylaxis: [email or web address] Stroke Does the patient have a stroke diagnosis?: No VTE Prior VTE?: No VTE Risk Level:: Medical - moderate - high VTE Device Contraindication: Treatment Not Indicated VTE Drug Contraindication: N/A - Med Ordered
[2021-04-03] MEDS: Gabapentin 300 MG CAPSULE PO (20:17)
[2021-04-03] MEDS: Acetaminophen 325 MG TABLET 650 MG PO (23:45)
[2021-04-04] VITALS (10 sets, daily range): BP systolic 93–151; BP diastolic 43–66; PULSE 76–96; RESP 16–21; TEMP 36.5–37.2; O2SAT 91–98
[2021-04-04] MEDS: Omeprazole 20 MG CAPSULE.DR PO (06:09)
[2021-04-04] MEDS: Levothyroxine Sodium 50 MCG TABLET PO (06:09)
[2021-04-04 06:21] LABS: MANUAL DIFF FLAG NO
[2021-04-04 06:46] LABS: Basophils Percent Auto 0.1 % (0-2); Hematocrit 39.4 % (37.0-47.0); Hemoglobin 12.1 g/dl (12.0-16.0); Imm Gran Abs Auto 0.04 X10*3/uL (0.00-0.03); Imm Gran Pct Auto 0.5 % (0.0-0.4); Lymphocytes Absolute Auto 0.8 X10*3/uL (1.2-4.9); Lymphocytes Percent Auto 11.2 % (20-40); Mean Corpuscular HGB Conc 30.7 g/dl (31.0-35.0); Mean Corpuscular Hemoglobin 30.8 pg (27.0-33.0); Mean Corpuscular Volume 100.3 fL (80.0-98.0); Mean Platelet Volume 11.9 fL (9.4-12.3); Monocytes Absolute Auto 0.3 X10*3/uL (0.1-1.2); Monocytes Percent Auto 3.3 % (2-11); Neutrophils Absolute Auto 6.4 x10*3/uL (2.0-8.3); Neutrophils Percent Auto 84.9 % (45-73); Platelet Count 180 X10*3/uL (160-400); Red Blood Count 3.93 X10*6/uL (4.20-5.50); Red Cell Distribution Width 14.2 % (11.0-16.0); White Blood Count 7.5 X10*3/uL (4.8-10.8)
[2021-04-04 06:50] LABS: Alanine Aminotransferase 16 U/L (0-31); Albumin Level 3.9 g/dL (3.5-5.0); Alkaline Phosphatase 81 U/L (39-117); Anion Gap 13 (12-20); Aspartate Amino Transferase 19 U/L (5-31); Bilirubin Total 0.7 mg/dL (0.0-1.0); Blood Urea Nitrogen 35 mg/dL (9-16); Calcium 9.4 mg/dL (8.4-10.2); Carbon Dioxide 37 mmol/L (22-29); Chloride 95 mmol/L (96-108); Estimated Glomerular Filt Rate 41; Glucose Fasting 206 mg/dL (60-99); Potassium 5.1 mmol/L (3.3-5.1); Sodium 140 mmol/L (135-145); Total Protein 7.2 g/dL (6.5-8.0)
[2021-04-04] MEDS: Albuterol/Iprat 2.5/0.5MG 3 ML AMPUL.NEB INHALE ×3 (07:32→19:32)
[2021-04-04] MEDS: Sertraline HCL 50 MG TABLET PO (08:07)
[2021-04-04] MEDS: Furosemide 200 MG in 0.9 % Sodium Chloride 80 ML IVCONT ×2 (08:07→12:51)
[2021-04-04] MEDS: lisinopriL 40 MG TABLET PO (08:07)
[2021-04-04] MEDS: Apixaban 5 MG TABLET PO ×2 (08:08→20:12)
[2021-04-04] MEDS: dilTIAZem HCL CD 240 MG CAP.ER.DEG PO (08:08)
[2021-04-04] MEDS: Ascorbic Acid 500 MG TABLET PO (08:08)
[2021-04-04] MEDS: Spironolactone 25 MG TABLET PO (08:08)
[2021-04-04] MEDS: 0.9 % Sodium Chloride Flush 3 ML SYRINGE IVFLUSH ×2 (08:08→20:12)
[2021-04-04] MEDS: Folic Acid 1 MG TABLET PO (08:08)
[2021-04-04 08:59] LABS: B Type Natriuretic Peptide 266 pg/mL (<100)
--- NOTE | 2021-04-04 10:29 | P.PNCA_ITS ---
Subjective Subjective Date of Service: 04/04/21 Principal diagnosis: Respiratory failure, congestive heart failure Interval history: Patient still short of breath as per her. However she says her hand edema is improved but leg edema is persistent. She has been diuresing well. Her creatinine is increased. She denies any palpitations. Denies any chest pain. Has been evaluated by Pulmonary Review of Systems Constitutional: Reports no additional constitutional complaints Cardiovascular: Denies chest pain, Reports leg edema, Denies palpitations, Reports dyspnea and Reports dyspnea on exertion Respiratory: Reports cough, Reports dyspnea and Reports dyspnea on exertion Gastrointestinal: Reports no additional gastrointestinal complaints Genitourinary: Reports no additional female genitourinary complaints Musculoskeletal: Reports no additional musculoskeletal complaints Skin/Breast: Reports system reviewed and no additional complaints, except as doc u Psychiatric: Reports no additional psychiatric complaints Endocrine: Reports no additional endocrine complaints and Denies palpitations Hematologic/Lymphatic: Reports no additional hematologic/lymphatic complaints Allergic/Immunologic: Reports no additional allergic/immunologic complaints Physical Exam Vital Signs: Last Vital Signs Temp 97.7 F 04/04/21 07:51 Pulse 87 04/04/21 08:08 Resp 18 04/04/21 07:51 BP 134/53 L 04/04/21 08:08 Pulse Ox 92 04/04/21 07:51 Oxygen Flow Rate 2 04/02/21 14:46 Body Mass Index 40.2 Const General: cooperative, comfortable and in distress mild and respiratory Nutritional Appearance: obese Orientation/consciousness: patient oriented x3 Neck Neck: Yes trachea midline, Yes supple and Yes other (Difficult to evaluate) Resp Effort & Inspection: normal respiratory effort Auscultation: crackles, wheezes and diminished lung sounds Cardio Rhythm: abnormal rhythm irregularly irregular Heart sounds: S1 normal heart sound present, S2 normal heart sound present, no click, no gallops and no murmurs GI Inspection: Yes obesity Auscultation: normal bowel sounds Skin General skin exam: no rashes or lesions noted Neuro General: patient oriented x3 and no focal motor deficits Extrem General: No clubbing, No cyanosis and Yes edema Results Labs and Meds Result diagrams: 04/04/21 05:49 04/04/21 05:49 Lab results: Laboratory Results - last 24 hr 04/04/21 04/04/21 04/04/21 05:49 05:49 05:49 WBC 7.5 RBC 3.93 L Hgb 12.1 Hct 39.4 MCV 100.3 H MCH 30.8 MCHC 30.7 L RDW 14.2 Plt Count 180 MPV 11.9 Immature Gran % (Auto) 0.5 H Neut % (Auto) 84.9 H Lymph % (Auto) 11.2 L [place] % (Auto) 3.3 Eos % (Auto) 0.0 Baso % (Auto) 0.1 Lymph # (Auto) 0.8 L [place] # (Auto) 0.3 Eos # (Auto) 0.0 Baso # (Auto) 0.0 Abs Immat Gran (auto) 0.04 H Absolute Neuts (auto) 6.4 Absolute Nucleated RBC 0.000 Nucleated RBC % (auto) 0.0 Sodium 140 Potassium 5.1 Chloride 95 L Carbon Dioxide 37 H Anion Gap 13 BUN 35 H D Creatinine 1.26 Estim Creat Clear Calc 38.0 Estimated GFR 41 Fasting Glucose 206 H Calcium 9.4 Total Bilirubin 0.7 AST 19 ALT 16 Alkaline Phosphatase 81 D B-Natriuretic Peptide 266 H Total Protein 7.2 Albumin 3.9 Progress Note: A&P Assessment and plan (1) Acute respiratory failure with hypoxia: Status: Acute Assessment and Plan: Patient with persistent shortness of breath and fluid overload. Her acute respiratory failure is multifactorial. Continue IV diuresis with Lasix drip. Strict intake and output chart needs to be pursued. Continue to trend BMP. Replace electrolytes as needed. Continue rate control strategy. Overall prognosis is guarded. Continue optimization pulmonary function. Probably has underlying sleep apnea that needs to be evaluated. On question underlying interstitial lung disease post COVID. Continue optimization for bronchospasm. Will continue to follow the patient. In terms of atrial fibrillation continue rate control for now. Continue full oral anticoagulation with Eliquis. This patient might benefit from CardioMEMS device to monitor her fluid status. Will follow with the patient Fall Risk Details Current Medications: Current Medications Acetaminophen (Acetaminophen 325 Mg Tablet) 650 mg PO Q6H PRN PRN Reason: Pain, Mild (Pain Scale 1-3) Last Admin: 04/03/21 23:45 Dose: 650 mg Documented by: Albuterol Sulfate (Albuterol Sulfate (0.042%) 1.25 Mg/3 Ml Vial.Neb) 0.63 mg INHALE Q4H PRN PRN Reason: shortness of breath or wheezing Albuterol/Ipratropium (Albuterol/Iprat 2.5/0.5mg 3 Ml Ampul.Neb) 3 ml INHALE RQ4H WHILE AWAKE [facility] Last Admin: 04/04/21 07:32 Dose: 3 ml Documented by: Albuterol/Ipratropium (Albuterol/Iprat 2.5/0.5mg 3 Ml Ampul.Neb) 3 ml INHALE RQ4H PRN PRN Reason: Shortness of Breath/Wheezing Apixaban (Apixaban 5 Mg Tablet) 5 mg PO BID [facility] Last Admin: 04/04/21 08:08 Dose: 5 mg Documented by: Artificial Tears (Artificial Tears 15 Ml Drops) 2 drop EYE-BOTH Q4H PRN PRN Reason: Dry Eyes Ascorbic Acid (Ascorbic Acid 500 Mg Tablet) 500 mg PO DAILY [facility] Last Admin: 04/04/21 08:08 Dose: 500 mg Documented by: Diltiazem HCl (Diltiazem Hcl Cd 240 Mg Cap.Er.Deg) 240 mg PO DAILY [facility]; Protocol Last Admin: 04/04/21 08:08 Dose: 240 mg Documented by: Docusate Sodium (Docusate Sodium 100 Mg Capsule) 100 mg PO DAILY PRN PRN Reason: Constipation Folic Acid (Folic Acid 1 Mg Tablet) 1 mg PO DAILY [facility] Last Admin: 04/04/21 08:08 Dose: 1 mg Documented by: Gabapentin (Gabapentin 300 Mg Capsule) 300 mg PO BEDTIME [facility] Last Admin: 04/03/21 20:17 Dose: 300 mg Documented by: Furosemide 200 mg/ Sodium (Chloride) 100 mls @ 5 mls/hr IVCONT .Q20H [facility] Last Admin: 04/04/21 08:07 Dose: 10 mg/hr, 5 mls/hr Documented by: Levothyroxine Sodium (Levothyroxine Sodium 50 Mcg Tablet) 50 mcg PO DAILY@0630 [facility] Last Admin: 04/04/21 06:09 Dose: 50 mcg Documented by: Lisinopril (Lisinopril 40 Mg Tablet) 40 mg PO DAILY [facility]; Protocol Last Admin: 04/04/21 08:07 Dose: 40 mg Documented by: Meclizine HCl (Meclizine Hcl 25 Mg Tablet) 25 mg PO DAILY PRN PRN Reason: dizziness Methylprednisolone Sodium Succinate (Methylprednisolone Sod Succ 40 Mg/Ml Vial) 40 mg IVPUSH Q12H [facility] Last Admin: 04/03/21 23:46 Dose: 40 mg Documented by: Naproxen (Naproxen 500 Mg Tablet) 500 mg PO BID PRN PRN Reason: Pain Omeprazole (Omeprazole 20 Mg Capsule.Dr) 20 mg PO DAILY@0600 [facility] Last Admin: 04/04/21 06:09 Dose: 20 mg Documented by: Ondansetron HCl (Ondansetron Hcl 4 Mg/2 Ml Vial) 4 mg IVPUSH Q8H PRN PRN Reason: Nausea and Vomiting Pharmacy Consult (Consult Rx Perform Med Rec) 1 each MISCELLANE ONCE PRN PRN Reason: Consult order Sertraline HCl (Sertraline Hcl 50 Mg Tablet) 50 mg PO DAILY [facility] Last Admin: 04/04/21 08:07 Dose: 50 mg Documented by: Sodium Chloride (0.9 % Sodium Chloride Flush 3 Ml Syringe) 3 ml IVFLUSH QSHIFT [facility] Last Admin: 04/04/21 08:08 Dose: 3 ml Documented by: Spironolactone (Spironolactone 25 Mg Tablet) 25 mg PO DAILY [facility]; Protocol Last Admin: 04/04/21 08:08 Dose: 25 mg Documented by: Sulfasalazine (Sulfasalazine 500 Mg Tablet) 500 mg PO DAILY@1300 [facility] Last Admin: 04/03/21 12:59 Dose: 500 mg Documented by: Tiotropium [place] (Tiotropium [place] 18 Mcg Cap.W.Dev) 1 puff INHALE RDAILY [facility] Last Admin: 04/04/21 07:32 Dose: 1 puff Documented by: Time Spent With Patient Time: Total time spent is greater than 50% in coordination of care (as documented) at patient's floor/unit and/or counseling patient: Time with patient: 25 - 35 minutes Progress Note: Quality Stroke Does the patient have a stroke diagnosis?: No Procedures Date of Service Date of Service: 04/04/21
--- NOTE | 2021-04-04 10:51 | PM.CNPUL ---
History of Present Illness History of Present Illness Consult date: 04/04/21 Requesting physician: Elkin Dow Chief complaint: Acute hypoxic resp failure, chf Narrative: THIS 80 YEARS OLD FEMALE IS VERY PLEASANT, ADMITTED WITH INCREASING SHORTNESS OF BREATH FOR A FEW WEEKS, ALONG WITH INCREASED EDEMA OF THE LEGS. SHE WAS ACTUALLY BEING TREATED IN THE WOUND CLINIC AND NOTED TO BE HYPOXEMIC THUS SHE WAS SENT TO THE EMERGENCY ROOM FOR ADMISSION. PATIENT HAS HAD NO FEVER CHILLS OR EXPECTORATION. SHE ALSO DID NOT HAVE ANY CHEST PAIN. AN EXAMINATION SHE WAS FELT TO BE MORE IN CONGESTIVE HEART FAILURE AND SHE HAS BEEN TREATED WITH AGGRESSIVE DIURESIS. CONTINUES TO BE SHORT OF BREATH ON MINIMAL EFFORT. PAST MEDICAL HISTORY INCLUDES MORBID OBESITY, HYPERTENSION, ATRIAL FIBRILLATION, CHRONIC CONGESTIVE HEART FAILURE, DIABETES MELLITUS, HYPERLIPIDEMIA, HISTORY OF PULMONARY EMBOLISM, AND CHRONIC OBSTRUCTIVE PULMONARY DISEASE, FOR COPD I WOULD NOTE THAT SHE HAS BEEN USING SYMBICORT 160-4.52 PUFFS B.I.D. AND INCRUSE ELLIPTA, ALONG WITH ALBUTEROL 2 PUFFS Q 4-6 HOURS P.R.N.. PATIENT DOES HAVE O2 AT HOME AND USES ONLY AT NIGHT. SHE HAS NEVER BEEN EVALUATED FOR OBSTRUCTIVE SLEEP APNEA. PATIENT REMAINS MOSTLY IMMOBILE WHILE, WITH MINIMAL WALKING AT HOME. HER ACTIVITY LEVEL IS LIMITED BY GROSS OBESITY AND ALSO LEG SWELLING WITH CHRONIC ULCER ON THE RIGHT LEG. SHE DENIES CHEST PAIN, RECENTLY HE DENIES ANY COUGH OR EXPECTORATION OR WHEEZING. Review of Systems Review of Systems: Yes all other systems are reviewed and are negative [facility] Past Medical History Medical History (Updated 04/04/21 @ 11:00 by No Tristan MD) (HFpEF) heart failure with preserved ejection fraction Atrial fibrillation Cervical radiculopathy due to degenerative joint disease of spine Conjunctivitis COPD (chronic obstructive pulmonary disease) Depression Diabetes Diastolic dysfunction with chronic heart failure Foot ulcer, right Hemorrhoids Hyperlipidemia Hypertension Laceration of skin Moderate persistent asthma Obesity LILY (obstructive sleep apnea) Petechiae Physical deconditioning Recurrent pulmonary embolism Rheumatoid arthritis SOB (shortness of breath) Venous insufficiency Family History Family History Father No problems noted. Mother No problems noted. Social History Social History Household Members: Family Housing: House Do you presently have visiting nurse or other home services: No Alcohol intake: never Patient Tobacco Use Status: Never used Tobacco e-Cigarette/Vaping Use: Never Used service: No Current occupational status: retired Meds Allergies Allergy/AdvReac Type Severity Reaction Status Date / Time atorvastatin [Lipitor] Allergy Unknown Unknown Verified 03/11/21 10:26 ciprofloxacin [From Cipro] Allergy Unknown Unknown Verified 03/11/21 10:26 ezetimibe [Zetia] Allergy Unknown unkno Verified 03/11/21 10:26 hydrochlorothiazide Allergy Unknown Unknown Verified 03/11/21 10:26 [From Avalide] Hytrin Allergy Unknown Unknown Verified 03/11/21 10:26 infliximab [From REMICADE] Allergy Unknown INFECTION Verified 03/11/21 10:26 irbesartan [From Avalide] Allergy Unknown Unknown Verified 03/11/21 10:26 metformin Allergy Unknown nausea Verified 03/11/21 10:26 nifedipine Allergy Unknown Unknown Verified 03/11/21 10:26 pravastatin Allergy Unknown stomach Verified 03/11/21 10:26 upset rosuvastatin [Crestor] Allergy Unknown Unknown Verified 03/11/21 10:26 valsartan [Diovan] Allergy Unknown Unknown Verified 03/11/21 10:26 warfarin [WARFARIN] Allergy Unknown THROAT Verified 03/11/21 10:26 SWELLING moxifloxacin [From Avelox] Allergy Unknown Verified 03/11/21 10:26 Active Medications: Current Medications Acetaminophen (Acetaminophen 325 Mg Tablet) 650 mg PO Q6H PRN PRN Reason: Pain, Mild (Pain Scale 1-3) Last Admin: 04/03/21 23:45 Dose: 650 mg Documented by: Albuterol Sulfate (Albuterol Sulfate (0.042%) 1.25 Mg/3 Ml Vial.Neb) 0.63 mg INHALE Q4H PRN PRN Reason: shortness of breath or wheezing Albuterol/Ipratropium (Albuterol/Iprat 2.5/0.5mg 3 Ml Ampul.Neb) 3 ml INHALE RQ4H WHILE AWAKE [facility] Last Admin: 04/04/21 07:32 Dose: 3 ml Documented by: Albuterol/Ipratropium (Albuterol/Iprat 2.5/0.5mg 3 Ml Ampul.Neb) 3 ml INHALE RQ4H PRN PRN Reason: Shortness of Breath/Wheezing Apixaban (Apixaban 5 Mg Tablet) 5 mg PO BID [facility] Last Admin: 04/04/21 08:08 Dose: 5 mg Documented by: Artificial Tears (Artificial Tears 15 Ml Drops) 2 drop EYE-BOTH Q4H PRN PRN Reason: Dry Eyes Ascorbic Acid (Ascorbic Acid 500 Mg Tablet) 500 mg PO DAILY [facility] Last Admin: 04/04/21 08:08 Dose: 500 mg Documented by: Diltiazem HCl (Diltiazem Hcl Cd 240 Mg Cap.Er.Deg) 240 mg PO DAILY [facility]; Protocol Last Admin: 04/04/21 08:08 Dose: 240 mg Documented by: Docusate Sodium (Docusate Sodium 100 Mg Capsule) 100 mg PO DAILY PRN PRN Reason: Constipation Folic Acid (Folic Acid 1 Mg Tablet) 1 mg PO DAILY [facility] Last Admin: 04/04/21 08:08 Dose: 1 mg Documented by: Gabapentin (Gabapentin 300 Mg Capsule) 300 mg PO BEDTIME [facility] Last Admin: 04/03/21 20:17 Dose: 300 mg Documented by: Furosemide 200 mg/ Sodium (Chloride) 100 mls @ 5 mls/hr IVCONT .Q20H [facility] Last Admin: 04/04/21 08:07 Dose: 10 mg/hr, 5 mls/hr Documented by: Levothyroxine Sodium (Levothyroxine Sodium 50 Mcg Tablet) 50 mcg PO DAILY@0630 [facility] Last Admin: 04/04/21 06:09 Dose: 50 mcg Documented by: Lisinopril (Lisinopril 40 Mg Tablet) 40 mg PO DAILY [facility]; Protocol Last Admin: 04/04/21 08:07 Dose: 40 mg Documented by: Meclizine HCl (Meclizine Hcl 25 Mg Tablet) 25 mg PO DAILY PRN PRN Reason: dizziness Methylprednisolone Sodium Succinate (Methylprednisolone Sod Succ 40 Mg/Ml Vial) 40 mg IVPUSH Q12H [facility] Last Admin: 04/03/21 23:46 Dose: 40 mg Documented by: Naproxen (Naproxen 500 Mg Tablet) 500 mg PO BID PRN PRN Reason: Pain Omeprazole (Omeprazole 20 Mg Capsule.) 20 mg PO DAILY@0600 [facility] Last Admin: 04/04/21 06:09 Dose: 20 mg Documented by: Ondansetron HCl (Ondansetron Hcl 4 Mg/2 Ml Vial) 4 mg IVPUSH Q8H PRN PRN Reason: Nausea and Vomiting Pharmacy Consult (Consult Rx Perform Med Rec) 1 each MISCELLANE ONCE PRN PRN Reason: Consult order Sertraline HCl (Sertraline Hcl 50 Mg Tablet) 50 mg PO DAILY [facility] Last Admin: 04/04/21 08:07 Dose: 50 mg Documented by: Sodium Chloride (0.9 % Sodium Chloride Flush 3 Ml Syringe) 3 ml IVFLUSH QSHIFT [facility] Last Admin: 04/04/21 08:08 Dose: 3 ml Documented by: Spironolactone (Spironolactone 25 Mg Tablet) 25 mg PO DAILY [facility]; Protocol Last Admin: 04/04/21 08:08 Dose: 25 mg Documented by: Sulfasalazine (Sulfasalazine 500 Mg Tablet) 500 mg PO DAILY@1300 [facility] Last Admin: 04/03/21 12:59 Dose: 500 mg Documented by: Tiotropium [place] (Tiotropium [place] 18 Mcg Cap.W.Dev) 1 puff INHALE RDAILY [facility] Last Admin: 04/04/21 07:32 Dose: 1 puff Documented by: Home Medications Medication Instructions Recorded Confirmed Last Taken Type blood sugar diagnostic #10 ea 03/11/20 03/11/21 Unknown History blood-glucose meter #1 ea 03/11/20 03/11/21 Unknown History diltiazem HCl 240 mg 240 mg PO DAILY 03/11/20 04/02/21 04/02/21 History capsule,extended release 24 hr, controlled ascorbic acid (vitamin C) 500 mg 500 mg PO DAILY 10/14/20 04/02/21 04/02/21 History tablet acetaminophen 500 mg tablet 1,000 mg PO BID 04/02/21 04/02/21 04/02/21 History albuterol sulfate 90 mcg/actuation 2 puff INHALATION Q4H PRN 04/02/21 04/02/21 04/02/21 History aerosol inhaler gabapentin 300 mg capsule 300 mg PO BEDTIME 04/02/21 04/02/21 04/02/21 History garlic 500 mg tablet 500 mg PO DAILY 04/02/21 04/02/21 04/02/21 History levothyroxine 50 mcg tablet 50 mcg PO DAILY@0630 04/02/21 04/02/21 04/02/21 History meloxicam 15 mg tablet 15 mg PO DAILY PRN 04/02/21 04/02/21 Unknown History pantoprazole 40 mg tablet,delayed 40 mg PO DAILY@0600 04/02/21 04/02/21 04/02/21 History release sulfasalazine 500 mg tablet 1 tab PO DAILY@1300 04/02/21 04/02/21 04/02/21 History Physical Exam Vital Signs: Vital Signs: Last Vital Signs Temp 97.7 F 04/04/21 07:51 Pulse 87 04/04/21 08:08 Resp 18 04/04/21 07:51 BP 134/53 L 04/04/21 08:08 Pulse Ox 92 04/04/21 07:51 Oxygen Flow Rate 2 04/02/21 14:46 Body Mass Index 40.2 Const: Other: SITTING UPRIGHT IN THE BED SHE IS GROSSLY OBESE WITH ROUND FACE. DOES NOT SEEM TO BE IN ACUTE DISTRESS AT THIS TIME. HENMT: Other: OROPHARYNX IS VERY NARROW AND CROWDED, MALLAMPATI CLASS 4 Neck: Other: NECK IS QUITE OBESE, TRACHEA IN MIDLINE, NO VISIBLE DID JVD. Chest: Other: CHEST WALL IS THICK AND OBESE, NO LOCAL TENDERNESS Resp: Other: BREATH SOUNDS ARE VERY DIMINISHED ESPECIALLY OVER THE LOWER LOBES. SHE HAS A FEW INSPIRATORY CREPITATIONS OVER THE BASES. SHE ALSO HAS SCATTERED EXPIRATORY WHEEZES ESPECIALLY ANTERIORLY OVER THE UPPER PART OF THE CHEST. Extrem: Other: BILATERAL LEG EDEMA IS NOTED, RIGHT LEG IS DRESSED BECAUSE OF THE CHRONIC WOUND. Results Laboratory Findings CBC and BMP: 04/04/21 05:49 04/04/21 05:49 ABG, PT/INR, D-dimer: PT/INR, D-dimer PT 16.2 SEC (9.9-13.0) H 04/02/21 21:10 INR 1.4 (0.9-1.1) H 04/02/21 21:10 Abnormal lab findings: Abnormal Labs 04/02/21 04/02/21 04/02/21 17:36 17:36 17:36 WBC RBC 4.05 L MCV 99.8 H MCHC 30.9 L Immature Gran % (Auto) 0.9 H Neut % (Auto) Lymph % (Auto) [place] % (Auto) 11.9 H Lymph # (Auto) Abs Immat Gran (auto) 0.05 H PT INR APTT Chloride Carbon Dioxide 36 H BUN 17 H Random Glucose Fasting Glucose Troponin I High Sens B-Natriuretic Peptide 201 H 04/02/21 04/02/21 04/02/21 21:10 21:10 22:56 WBC RBC MCV MCHC Immature Gran % (Auto) Neut % (Auto) Lymph % (Auto) [place] % (Auto) Lymph # (Auto) Abs Immat Gran (auto) PT 16.2 H INR 1.4 H APTT 41.5 H Chloride Carbon Dioxide BUN Random Glucose Fasting Glucose Troponin I High Sens 20.6 H* 20.9 H* B-Natriuretic Peptide 04/03/21 04/03/21 04/04/21 07:39 07:39 05:49 WBC 4.4 L RBC 4.11 L 3.93 L MCV 99.0 H 100.3 H MCHC 30.5 L 30.7 L Immature Gran % (Auto) 0.7 H 0.5 H Neut % (Auto) 79.1 H 84.9 H Lymph % (Auto) 17.2 L 11.2 L [place] % (Auto) Lymph # (Auto) 0.8 L 0.8 L Abs Immat Gran (auto) 0.04 H PT INR APTT Chloride Carbon Dioxide 36 H BUN 20 H Random Glucose 201 H Fasting Glucose Troponin I High Sens B-Natriuretic Peptide 04/04/21 04/04/21 05:49 05:49 WBC RBC MCV MCHC Immature Gran % (Auto) Neut % (Auto) Lymph % (Auto) [place] % (Auto) Lymph # (Auto) Abs Immat Gran (auto) PT INR APTT Chloride 95 L Carbon Dioxide 37 H BUN 35 H D Random Glucose Fasting Glucose 206 H Troponin I High Sens B-Natriuretic Peptide 266 H Diagnostic Findings Chest x-ray: report reviewed and image reviewed Assessment and Plan (1) COPD exacerbation: Status: Acute PATIENT DOES HAVE ACTIVE WHEEZING, INDICATES ACUTE EXACERBATION. I RECOMMEND TREATING WITH IV SOLU-MEDROL FOR 1 OR 2 DAYS THEN A SHORT COURSE OF PREDNISONE. CONTINUE DUONEB UPDRAFTS Q 6 HOURS WHILE AWAKE, AND ALBUTEROL 2 PUFFS Q 4-6 HOURS P.R.N.. WHILE IN THE HOSPITAL WE MAY START HER ON BREO -200 1 INHALATION DAILY, TO REPLACE HER SYMBICORT WHICH SHE TAKES AT HOME. (2) Acute respiratory failure with hypoxia: Status: Acute SHE PRESENTED WITH HYPOXEMIA, INITIALLY TREATED AT HOME FOR NOCTURNAL HYPOXEMIA, I THINK SHE IS GOING TO NEED O2 2 L/MINUTE AROUND THE CLOCK. SO ON HER DISCHARGE HOME WE MAY HAVE TO ADD A PORTABLE UNIT ALSO. (3) CHF exacerbation: Status: Acute (4) Obesity: Status: Acute SHE IS THE GROSSLY OBESE WITH A ROUND FACE AND SHOULD BE EVALUATED FOR OBSTRUCTIVE SLEEP APNEA/HYPOVENTILATION SYNDROME. THIS MAY BE DONE OUTPATIENT. Procedures Date of Service Date of Service: 04/04/21
--- NOTE | 2021-04-04 11:28 | PM.PNCARD ---
Subjective Subjective Date of Service: 04/04/21 Principal diagnosis: Respiratory failure, congestive heart failure Interval history: Cardiology follow up for the above. Seen at 0900. Today she states she is breathing better but not yet back to normal. She slept well with HOB elevated to about 45 degrees. No cough. No chest pains, palpitation, dizziness. Legs are still swollen but she says they a down a little . She normally wears O2 3 liters at home and is currently on 3 Liters with sat 92%. Review of Systems Review of Systems as above Yes all other systems are reviewed and are negative Physical Exam Vital Signs: Last Vital Signs Temp 97.7 F 04/04/21 07:51 Pulse 91 04/04/21 11:08 Resp 18 04/04/21 07:51 BP 134/53 L 04/04/21 08:08 Pulse Ox 92 04/04/21 07:51 Oxygen Flow Rate 2 04/02/21 14:46 Body Mass Index 40.2 Const Other: morbidly obese General: cooperative, no acute distress, alert and awake Orientation/consciousness: patient oriented x3 Neck Other: difficult to assess for JVD due to obesity Neck: Yes normal visual inspection and Yes no JVD Resp Other: bilateral expiratory wheezing with rales noted in lower lobes Effort & Inspection: normal respiratory effort, able to speak in complete sentences and not labored Auscultation: clear to auscultation bilaterally, crackles, rales and no rhonchi Cardio Palpation: normal PMI Rate: regular rate Rhythm: abnormal rhythm irregularly irregular Heart sounds: S1 normal heart sound present and S2 normal heart sound present GI Inspection: Yes normal to inspection Neuro General: patient oriented x3 Extrem Other: lower legs with pitting edema, shiny skin, no skin breaks Results Labs and Meds Result diagrams: 04/04/21 05:49 04/04/21 05:49 Lab results: Laboratory Results - last 24 hr 04/04/21 04/04/21 04/04/21 05:49 05:49 05:49 WBC 7.5 RBC 3.93 L Hgb 12.1 Hct 39.4 MCV 100.3 H MCH 30.8 MCHC 30.7 L RDW 14.2 Plt Count 180 MPV 11.9 Immature Gran % (Auto) 0.5 H Neut % (Auto) 84.9 H Lymph % (Auto) 11.2 L [place] % (Auto) 3.3 Eos % (Auto) 0.0 Baso % (Auto) 0.1 Lymph # (Auto) 0.8 L [place] # (Auto) 0.3 Eos # (Auto) 0.0 Baso # (Auto) 0.0 Abs Immat Gran (auto) 0.04 H Absolute Neuts (auto) 6.4 Absolute Nucleated RBC 0.000 Nucleated RBC % (auto) 0.0 Sodium 140 Potassium 5.1 Chloride 95 L Carbon Dioxide 37 H Anion Gap 13 BUN 35 H D Creatinine 1.26 Estim Creat Clear Calc 38.0 Estimated GFR 41 Fasting Glucose 206 H Calcium 9.4 Total Bilirubin 0.7 AST 19 ALT 16 Alkaline Phosphatase 81 D B-Natriuretic Peptide 266 H Total Protein 7.2 Albumin 3.9 Progress Note: A&P Assessment and plan (1) (HFpEF) heart failure with preserved ejection fraction: Status: Acute Assessment and Plan: Acute on chronic HFpEF. Echo shows EF > 70%, severe LV wall thickness, severe LA dilation. Admit with sob and edema. CXR showed mild CHF and had evidence of fluid overload on exam. Being diuresed with IV Lasix drip at 10mg hr. Fluid balance neg 2 liters since admit. Cr 1.26 this am which is up from 0.94 yesterday. BNP 266 today, was 201 on 04/02. She does report some improvement in breathing and edema but not to baseline yet. On exam she has wheezes/ rales, pitting lower leg edema. JVD difficult to assess due to obesity. Will continue to diurese with Lasix drip, reducing dose to 5mg/ hr. Continue Aldactone. Ongoing strict I+O monitoring. Close monitoring of electrolyte and kidney function. Electrolyte replacement as warranted. She has COPD as well and pulmonology consult is pending. Her sob may be a combination of CHF and COPD exacerbations. We will follow. (2) Acute respiratory failure with hypoxia: Status: Acute Assessment and Plan: Wears O2 3 liters continually at home. Currently using that in hospital. (3) COPD exacerbation: Status: Acute (4) Atrial fibrillation: Status: Acute Assessment and Plan: Hx of chronic afib. Rates controlled with Diltiazem. Tele showing afib rates 70-100. On Eliquis for anticoagulation. No bleeding issues reported. No med changes. Ongoing tele montioring (5) Hypertension: Status: Acute Assessment and Plan: Adequately controlled at present. Continue aldactone, Lisinopril, diltiazem. Fall Risk Details Current Medications: Current Medications Acetaminophen (Acetaminophen 325 Mg Tablet) 650 mg PO Q6H PRN PRN Reason: Pain, Mild (Pain Scale 1-3) Last Admin: 04/03/21 23:45 Dose: 650 mg Documented by: Albuterol Sulfate (Albuterol Sulfate (0.042%) 1.25 Mg/3 Ml Vial.Neb) 0.63 mg INHALE Q4H PRN PRN Reason: shortness of breath or wheezing Albuterol/Ipratropium (Albuterol/Iprat 2.5/0.5mg 3 Ml Ampul.Neb) 3 ml INHALE RQ4H WHILE AWAKE [facility] Last Admin: 04/04/21 11:07 Dose: 3 ml Documented by: Albuterol/Ipratropium (Albuterol/Iprat 2.5/0.5mg 3 Ml Ampul.Neb) 3 ml INHALE RQ4H PRN PRN Reason: Shortness of Breath/Wheezing Apixaban (Apixaban 5 Mg Tablet) 5 mg PO BID [facility] Last Admin: 04/04/21 08:08 Dose: 5 mg Documented by: Artificial Tears (Artificial Tears 15 Ml Drops) 2 drop EYE-BOTH Q4H PRN PRN Reason: Dry Eyes Ascorbic Acid (Ascorbic Acid 500 Mg Tablet) 500 mg PO DAILY [facility] Last Admin: 04/04/21 08:08 Dose: 500 mg Documented by: Diltiazem HCl (Diltiazem Hcl Cd 240 Mg Cap.Er.Deg) 240 mg PO DAILY [facility]; Protocol Last Admin: 04/04/21 08:08 Dose: 240 mg Documented by: Docusate Sodium (Docusate Sodium 100 Mg Capsule) 100 mg PO DAILY PRN PRN Reason: Constipation Folic Acid (Folic Acid 1 Mg Tablet) 1 mg PO DAILY [facility] Last Admin: 04/04/21 08:08 Dose: 1 mg Documented by: Gabapentin (Gabapentin 300 Mg Capsule) 300 mg PO BEDTIME [facility] Last Admin: 04/03/21 20:17 Dose: 300 mg Documented by: Furosemide 200 mg/ Sodium (Chloride) 100 mls @ 5 mls/hr IVCONT .Q20H [facility] Last Admin: 04/04/21 08:07 Dose: 10 mg/hr, 5 mls/hr Documented by: Levothyroxine Sodium (Levothyroxine Sodium 50 Mcg Tablet) 50 mcg PO DAILY@0630 [facility] Last Admin: 04/04/21 06:09 Dose: 50 mcg Documented by: Lisinopril (Lisinopril 40 Mg Tablet) 40 mg PO DAILY [facility]; Protocol Last Admin: 04/04/21 08:07 Dose: 40 mg Documented by: Meclizine HCl (Meclizine Hcl 25 Mg Tablet) 25 mg PO DAILY PRN PRN Reason: dizziness Methylprednisolone Sodium Succinate (Methylprednisolone Sod Succ 40 Mg/Ml Vial) 40 mg IVPUSH Q12H [facility] Last Admin: 04/03/21 23:46 Dose: 40 mg Documented by: Naproxen (Naproxen 500 Mg Tablet) 500 mg PO BID PRN PRN Reason: Pain Omeprazole (Omeprazole 20 Mg Capsule.Dr) 20 mg PO DAILY@0600 [facility] Last Admin: 04/04/21 06:09 Dose: 20 mg Documented by: Ondansetron HCl (Ondansetron Hcl 4 Mg/2 Ml Vial) 4 mg IVPUSH Q8H PRN PRN Reason: Nausea and Vomiting Pharmacy Consult (Consult Rx Perform Med Rec) 1 each MISCELLANE ONCE PRN PRN Reason: Consult order Sertraline HCl (Sertraline Hcl 50 Mg Tablet) 50 mg PO DAILY [facility] Last Admin: 04/04/21 08:07 Dose: 50 mg Documented by: Sodium Chloride (0.9 % Sodium Chloride Flush 3 Ml Syringe) 3 ml IVFLUSH QSHIFT [facility] Last Admin: 04/04/21 08:08 Dose: 3 ml Documented by: Spironolactone (Spironolactone 25 Mg Tablet) 25 mg PO DAILY [facility]; Protocol Last Admin: 04/04/21 08:08 Dose: 25 mg Documented by: Sulfasalazine (Sulfasalazine 500 Mg Tablet) 500 mg PO DAILY@1300 [facility] Last Admin: 04/03/21 12:59 Dose: 500 mg Documented by: Tiotropium [place] (Tiotropium [place] 18 Mcg Cap.W.Dev) 1 puff INHALE RDAILY [facility] Last Admin: 04/04/21 07:32 Dose: 1 puff Documented by: Time Spent With Patient Time: Total time spent is greater than 50% in coordination of care (as documented) at patient's floor/unit and/or counseling patient: 24 Time with patient: 15 - 24 minutes Progress Note: Quality Stroke Does the patient have a stroke diagnosis?: No Procedures Date of Service Date of Service: 04/04/21
[2021-04-04] MEDS: sulfaSALAzine 500 MG TABLET PO (12:55)
[2021-04-04] MEDS: methylPREDNISolone Sod Succ 40 MG/ML VIAL IVPUSH ×2 (12:55→21:26)
--- NOTE | 2021-04-04 13:54 | MHC.CM.PN ---
Female 80 DX HF No discharge today. DP home with resumption of [employer] [facility]. Pt will arrange for transportation home.
--- NOTE | 2021-04-04 15:19 | P.PNIM_ITS ---
Subjective Subjective Date of Service: 04/04/21 Interval History: Remains mildly short of breath at rest; exertion worsened status. States appetite good; minimal improvement since admission Review of Systems Denies chest pain Admit shortness of breath worse with exertion Denies nausea vomiting diarrhea Physical Exam Vital Signs: Vital Signs: Last Vital Signs Temp 97.7 F 04/04/21 07:51 Pulse 91 04/04/21 11:08 Resp 18 04/04/21 07:51 BP 134/53 L 04/04/21 08:08 Pulse Ox 92 04/04/21 07:51 Oxygen Flow Rate 2 04/02/21 14:46 Body Mass Index 40.2 Const: Other: No acute distress HENMT: Other: Membranes moist oropharynx clear Resp: Other: Diminished at bases with diffuse expiratory wheezes heard Cardio: Other: No S4; positive S1-S2; no S3 murmurs or gallops GI: Other: Obese/soft nontender note that also Neuro: Other: Cranial nerves 2-12 grossly intact as tested. Motor is 5/5 all extremities. Sensation intact. Extrem: Other: Positive edema bilaterally Objective Data Active Medications Acetaminophen (Acetaminophen 325 Mg Tablet) 650 mg PO Q6H PRN PRN Reason: Pain, Mild (Pain Scale 1-3) Last Admin: 04/03/21 23:45 Dose: 650 mg Documented by: AMBER Albuterol Sulfate (Albuterol Sulfate (0.042%) 1.25 Mg/3 Ml Vial.Neb) 0.63 mg INHALE Q4H PRN PRN Reason: shortness of breath or wheezing Albuterol/Ipratropium (Albuterol/Iprat 2.5/0.5mg 3 Ml Ampul.Neb) 3 ml INHALE RQ4H WHILE AWAKE [facility] Last Admin: 04/04/21 11:07 Dose: 3 ml Documented by: EMILIANA Albuterol/Ipratropium (Albuterol/Iprat 2.5/0.5mg 3 Ml Ampul.Neb) 3 ml INHALE RQ4H PRN PRN Reason: Shortness of Breath/Wheezing Apixaban (Apixaban 5 Mg Tablet) 5 mg PO BID [facility] Last Admin: 04/04/21 08:08 Dose: 5 mg Documented by: MARC Artificial Tears (Artificial Tears 15 Ml Drops) 2 drop EYE-BOTH Q4H PRN PRN Reason: Dry Eyes Ascorbic Acid (Ascorbic Acid 500 Mg Tablet) 500 mg PO DAILY [facility] Last Admin: 04/04/21 08:08 Dose: 500 mg Documented by: MARC Diltiazem HCl (Diltiazem Hcl Cd 240 Mg Cap.Er.Deg) 240 mg PO DAILY [facility]; Protocol Last Admin: 04/04/21 08:08 Dose: 240 mg Documented by: MARC Docusate Sodium (Docusate Sodium 100 Mg Capsule) 100 mg PO DAILY PRN PRN Reason: Constipation Folic Acid (Folic Acid 1 Mg Tablet) 1 mg PO DAILY [facility] Last Admin: 04/04/21 08:08 Dose: 1 mg Documented by: MARC Gabapentin (Gabapentin 300 Mg Capsule) 300 mg PO BEDTIME [facility] Last Admin: 04/03/21 20:17 Dose: 300 mg Documented by: ARNIE Furosemide 200 mg/ Sodium (Chloride) 100 mls @ 2.5 mls/hr IVCONT .Q24H [facility] Last Admin: 04/04/21 12:51 Dose: 5 mg/hr, 2.5 mls/hr Documented by: MARC Levothyroxine Sodium (Levothyroxine Sodium 50 Mcg Tablet) 50 mcg PO DAILY@0630 [facility] Last Admin: 04/04/21 06:09 Dose: 50 mcg Documented by: AMBER Lisinopril (Lisinopril 40 Mg Tablet) 40 mg PO DAILY [facility]; Protocol Last Admin: 04/04/21 08:07 Dose: 40 mg Documented by: MARC Meclizine HCl (Meclizine Hcl 25 Mg Tablet) 25 mg PO DAILY PRN PRN Reason: dizziness Methylprednisolone Sodium Succinate (Methylprednisolone Sod Succ 40 Mg/Ml Vial) 40 mg IVPUSH Q12H [facility] Last Admin: 04/04/21 12:55 Dose: 40 mg Documented by: MARC Naproxen (Naproxen 500 Mg Tablet) 500 mg PO BID PRN PRN Reason: Pain Omeprazole (Omeprazole 20 Mg Capsule.) 20 mg PO DAILY@0600 [facility] Last Admin: 04/04/21 06:09 Dose: 20 mg Documented by: AMBER Ondansetron HCl (Ondansetron Hcl 4 Mg/2 Ml Vial) 4 mg IVPUSH Q8H PRN PRN Reason: Nausea and Vomiting Pharmacy Consult (Consult Rx Perform Med Rec) 1 each MISCELLANE ONCE PRN PRN Reason: Consult order Sertraline HCl (Sertraline Hcl 50 Mg Tablet) 50 mg PO DAILY [facility] Last Admin: 04/04/21 08:07 Dose: 50 mg Documented by: MARC Sodium Chloride (0.9 % Sodium Chloride Flush 3 Ml Syringe) 3 ml IVFLUSH QSHIFT [facility] Last Admin: 04/04/21 08:08 Dose: 3 ml Documented by: MARC Spironolactone (Spironolactone 25 Mg Tablet) 25 mg PO DAILY [facility]; Protocol Last Admin: 04/04/21 08:08 Dose: 25 mg Documented by: MARC Sulfasalazine (Sulfasalazine 500 Mg Tablet) 500 mg PO DAILY@1300 [facility] Last Admin: 04/04/21 12:55 Dose: 500 mg Documented by: MARC Tiotropium [place] (Tiotropium [place] 18 Mcg Cap.W.Dev) 1 puff INHALE RDAILY [facility] Last Admin: 04/04/21 07:32 Dose: 1 puff Documented by: EMILIANA Labs CBC & Chem 7: 04/04/21 05:49 04/04/21 05:49 Labs: Laboratory Results - last 24 hr 04/04/21 04/04/21 04/04/21 05:49 05:49 05:49 MCV 100.3 H MCH 30.8 MCHC 30.7 L RDW 14.2 Plt Count 180 MPV 11.9 Immature Gran % (Auto) 0.5 H Neut % (Auto) 84.9 H Lymph % (Auto) 11.2 L [place] % (Auto) 3.3 Eos % (Auto) 0.0 Baso % (Auto) 0.1 Lymph # (Auto) 0.8 L [place] # (Auto) 0.3 Eos # (Auto) 0.0 Baso # (Auto) 0.0 Abs Immat Gran (auto) 0.04 H Absolute Neuts (auto) 6.4 Absolute Nucleated RBC 0.000 Nucleated RBC % (auto) 0.0 Anion Gap 13 Estim Creat Clear Calc 38.0 Estimated GFR 41 Fasting Glucose 206 H Calcium 9.4 Total Bilirubin 0.7 AST 19 ALT 16 Alkaline Phosphatase 81 D B-Natriuretic Peptide 266 H Total Protein 7.2 Albumin 3.9 Assessment and Plan (1) Acute respiratory failure with hypoxia: Status: Acute Assessment and Plan: 80-year-old female with past medical history of COPD, CHF, AFib presents to the hospital with complaints of shortness of breath and hypoxia. Some improvement with Lasix drip; decreased 5 milligrams/hour this a.m. 1. Decompensated CHF Lasix drip decreased to 5 mg an hour. Follow-up labs in a.m. 2. COPD exacerbation Query component of post COVID syndrome. Would continue with steroids and DuoNeb therapies. Titrate O2 to maintain sats above 92% Pulmonary consult 3. Persistent atrial fibrillation Rate control adequate; continue telemetry. Continue Eliquis/calcium channel elkin as ordered. Adjust as indicated 4. Hypertension Continue lisinopril, diltiazem, Aldactone 5. Hypothyroidism Continue levothyroxine; check TSH in a.m. 6. Type 2 DM Restart glipizide at 5 mg daily Cover with sliding scale; adjust as indicated DVT prophylaxis: [employer] Quality Stroke Does the patient have a stroke diagnosis?: No VTE Prior VTE?: No VTE Risk Level:: Medical - moderate - high VTE Device Contraindication: Treatment Not Indicated VTE Drug Contraindication: N/A - Med Ordered
[2021-04-04] MEDS: Gabapentin 300 MG CAPSULE PO (20:12)
[2021-04-04 20:41] LABS: Glucose, Whole Blood 270 mg/dL (60-115)
[2021-04-04] MEDS: Insulin Lispro 100 UNIT/ML 3 ML VIAL SUBCUT (21:26)
[2021-04-05] VITALS (12 sets, daily range): BP systolic 119–145; BP diastolic 56–73; PULSE 67–103; RESP 18–24; TEMP 36.1–37.1; O2SAT 91–98
[2021-04-05] MEDS: Omeprazole 20 MG CAPSULE.DR PO (05:14)
[2021-04-05] MEDS: Levothyroxine Sodium 50 MCG TABLET PO (05:14)
[2021-04-05 06:56] LABS: MANUAL DIFF FLAG NO
[2021-04-05 06:58] LABS: Basophils Percent Auto 0.1 % (0-2); Hematocrit 41.8 % (37.0-47.0); Hemoglobin 12.9 g/dl (12.0-16.0); Lymphocytes Absolute Auto 0.9 X10*3/uL (1.2-4.9); Lymphocytes Percent Auto 9.5 % (20-40); Mean Corpuscular HGB Conc 30.9 g/dl (31.0-35.0); Mean Corpuscular Hemoglobin 30.7 pg (27.0-33.0); Mean Corpuscular Volume 99.5 fL (80.0-98.0); Mean Platelet Volume 11.7 fL (9.4-12.3); Monocytes Absolute Auto 0.4 X10*3/uL (0.1-1.2); Monocytes Percent Auto 4.1 % (2-11); Neutrophils Absolute Auto 8.1 x10*3/uL (2.0-8.3); Neutrophils Percent Auto 85.3 % (45-73); Platelet Count 199 X10*3/uL (160-400); Red Cell Distribution Width 14.3 % (11.0-16.0); White Blood Count 9.5 X10*3/uL (4.8-10.8)
[2021-04-05 07:17] LABS: B Type Natriuretic Peptide 303 pg/mL (<100)
[2021-04-05 07:18] LABS: Alanine Aminotransferase 30 U/L (0-31); Alkaline Phosphatase 85 U/L (39-117); Anion Gap 16 (12-20); Aspartate Amino Transferase 31 U/L (5-31); Bilirubin Total 0.6 mg/dL (0.0-1.0); Blood Urea Nitrogen 47 mg/dL (9-16); Calcium 9.7 mg/dL (8.4-10.2); Carbon Dioxide 37 mmol/L (22-29); Chloride 93 mmol/L (96-108); Creatinine Clr Calc Pharmacy 44.7; Estimated Glomerular Filt Rate 49; Glucose Fasting 202 mg/dL (60-99); Potassium 5.3 mmol/L (3.3-5.1); Sodium 141 mmol/L (135-145); Total Protein 7.4 g/dL (6.5-8.0)
[2021-04-05 07:26] LABS: Glucose, Whole Blood 194 mg/dL (60-115)
[2021-04-05] MEDS: Albuterol/Iprat 2.5/0.5MG 3 ML AMPUL.NEB INHALE ×4 (07:39→19:32)
[2021-04-05] MEDS: Insulin Lispro 100 UNIT/ML 3 ML VIAL SUBCUT ×4 (08:05→20:52)
--- NOTE | 2021-04-05 10:28 | P.PNPL_ITS ---
Subjective Subjective Date of Service: 04/05/21 Principal diagnosis: Respiratory failure, congestive heart failure Interval history: This 80 years old morbidly obese female, being treated for congestive heart failure/fluid overload, and acute exacerbation of COPD. Respiratory morrison she is getting better but she still feels quite congested. She remains afebrile, denies chest pain , still requiring O2 2 L/minute. Objective Data Labs CBC & Chem 7: 04/05/21 06:32 04/05/21 06:32 Labs: Laboratory Results - last 24 hr 04/04/21 04/05/21 04/05/21 20:37 06:32 06:32 WBC 9.5 RBC 4.20 Hgb 12.9 Hct 41.8 MCV 99.5 H MCH 30.7 MCHC 30.9 L RDW 14.3 Plt Count 199 MPV 11.7 Immature Gran % (Auto) 1.0 H Neut % (Auto) 85.3 H Lymph % (Auto) 9.5 L [place] % (Auto) 4.1 Eos % (Auto) 0.0 Baso % (Auto) 0.1 Lymph # (Auto) 0.9 L [place] # (Auto) 0.4 Eos # (Auto) 0.0 Baso # (Auto) 0.0 Abs Immat Gran (auto) 0.10 H Absolute Neuts (auto) 8.1 Absolute Nucleated RBC 0.000 Nucleated RBC % (auto) 0.0 Sodium 141 Potassium 5.3 H Chloride 93 L Carbon Dioxide 37 H Anion Gap 16 BUN 47 H Creatinine 1.07 Estim Creat Clear Calc 44.7 Estimated GFR 49 POC Glucose 270 H Fasting Glucose 202 H Calcium 9.7 Total Bilirubin 0.6 AST 31 D ALT 30 Alkaline Phosphatase 85 B-Natriuretic Peptide Total Protein 7.4 Albumin 4.0 04/05/21 04/05/21 06:32 07:19 WBC RBC Hgb Hct MCV MCH MCHC RDW Plt Count MPV Immature Gran % (Auto) Neut % (Auto) Lymph % (Auto) [place] % (Auto) Eos % (Auto) Baso % (Auto) Lymph # (Auto) [place] # (Auto) Eos # (Auto) Baso # (Auto) Abs Immat Gran (auto) Absolute Neuts (auto) Absolute Nucleated RBC Nucleated RBC % (auto) Sodium Potassium Chloride Carbon Dioxide Anion Gap BUN Creatinine Estim Creat Clear Calc Estimated GFR POC Glucose 194 H Fasting Glucose Calcium Total Bilirubin AST ALT Alkaline Phosphatase B-Natriuretic Peptide 303 H Total Protein Albumin Review of Systems Constitutional: Reports as per HPI Eyes: Reports no additional eye complaints Reports system reviewed and no additional complaints, except as documented Cardiovascular: Reports leg ulcers, Reports leg edema and Reports dyspnea Respiratory: Reports cough (Intermittent, feels congested), Reports dyspnea and Reports wheezing (Mild intermittent) Gastrointestinal: Reports no additional gastrointestinal complaints Genitourinary: Reports no additional female genitourinary complaints Allergic/Immunologic: Reports wheezing (Mild intermittent) Physical Exam Vital Signs: Vital Signs: Last Vital Signs Temp 98.3 F 04/05/21 07:33 Pulse 85 04/05/21 07:39 Resp 20 04/05/21 07:33 BP 131/56 L 04/05/21 07:33 Pulse Ox 95 04/05/21 07:33 Oxygen Flow Rate 2 04/02/21 14:46 Body Mass Index 40.2 Const: General: comfortable, no acute distress, alert and awake Orientation/consciousness: patient oriented x3 HENMT: Head: Yes normal to inspection General nose exam: No nasal polyps present and No nasal discharge present Face and sinus: Yes sinuses nontender Mouth: oropharynx abnormals (Oropharynx is narrow/crowded, Mallampati class 4) Throat: Yes posterior oropharynx normal Eyes: General: appearance normal, both eyes and all related structures Neck: Neck: Yes normal visual inspection, Yes no lymphadenopathy, Yes trachea midline and Yes no JVD Thyroid: Thyroid normal Chest: Chest palpation & inspection: normal inspection of the chest, normal palpation of entire chest wall and no tenderness Resp: Other: Percussion note not perceptible because of thick chest wall, Breath sounds are distant, There are scattered inspiratory wheezes. Inspiratory crepitations are heard over both bases especially on the right side. Cardio: Palpation: normal PMI Rate: regular rate Rhythm: regular rhythm Heart sounds: no gallops and no murmurs GI: Palpation (GI): Soft to palpation, Tenderness to palpation present (GI), No hepatosplenomegaly present and Palpable mass present Auscultation: normal bowel sounds Back/Spine/Pelvis: Thoracic/Lumbar Spine: thoracic and lumbar spine normal to inspection Skin: General skin exam: no rashes or lesions noted Neuro: General: patient oriented x3 and no focal motor deficits Cranial nerves: Yes CN's II-XII intact bilaterally Extrem: Other: Both legs are bulky with mild pitting edema Chronic ulcer on the right leg, currently covered with dressing General: Yes no calf tenderness Psych: Speech and movement: Normal speech and movement present Procedures Date of Service Date of Service: 04/05/21 Assessment and Plan Assessment and plan (1) COPD exacerbation: Problem details: COPD exacerbation is gradually improving, bilateral wheezes are much less than before. Recc > continue DuoNeb updrafts Q 6 hours while awake, and albuterol updraft Q 4 hours p.r.n.. Breo -200 1 inhalation daily is added ( in place of Symbicort that she uses at home ) I think she can come off IV Solu-Medrol by tomorrow and then put her on a short course of prednisone taper. Status: Acute (2) Acute respiratory failure with hypoxia: Problem details: Patient requires oxygen supplementation and okay to continue 2 L/minute Status: Acute (3) CHF exacerbation: Problem details: Being treated with diuresis and followed by cardiology Status: Acute (4) Hypoxia: Problem details: Hypoxemia is secondary to combination of congestive heart failure and COPD. Continue O2 2 L/minute Status: Acute Time Spent With Patient Time: Total time spent is greater than 50% in coordination of care (as documented) at patient's floor/unit and/or counseling patient: Time with patient: 15 - 24 minutes Progress Note: Quality Stroke Does the patient have a stroke diagnosis?: No
[2021-04-05] MEDS: Azithromycin 500 MG TABLET PO (11:15)
[2021-04-05] MEDS: dilTIAZem HCL CD 240 MG CAP.ER.DEG PO (11:16)
[2021-04-05] MEDS: Sertraline HCL 50 MG TABLET PO (11:17)
[2021-04-05] MEDS: Spironolactone 25 MG TABLET PO (11:17)
[2021-04-05] MEDS: Ascorbic Acid 500 MG TABLET PO (11:17)
[2021-04-05] MEDS: Folic Acid 1 MG TABLET PO (11:18)
[2021-04-05] MEDS: lisinopriL 40 MG TABLET PO (11:18)
[2021-04-05] MEDS: Apixaban 5 MG TABLET PO ×2 (11:18→20:52)
[2021-04-05] MEDS: cefTRIAXone sodium 1 GM in 0.9 % Sodium Chloride 50 ML IV (11:19)
[2021-04-05 11:31] LABS: Glucose, Whole Blood 195 mg/dL (60-115)
[2021-04-05] MEDS: methylPREDNISolone Sod Succ 40 MG/ML VIAL IVPUSH ×2 (12:32→21:53)
[2021-04-05] MEDS: sulfaSALAzine 500 MG TABLET PO (12:32)
[2021-04-05] MEDS: Furosemide 200 MG in 0.9 % Sodium Chloride 80 ML IVCONT ×2 (12:43→14:52)
--- NOTE | 2021-04-05 12:55 | P.PNCA_ITS ---
Subjective Subjective Date of Service: 04/05/21 Principal diagnosis: Respiratory failure, congestive heart failure Interval history: Patient developed low blood pressure yesterday and then developed retrosternal chest heaviness. This is concerning. No troponins or EKG were done. Symptoms then subsided. Today her BNP is higher. She is currently on 2.5 mL of Lasix drip which could response to 2.5 mg an hour. Unsure as to why, probably because of the low blood pressure. Her overall negative balance is only 1800 cc. Review of Systems Constitutional: Reports no additional constitutional complaints Cardiovascular: Reports chest pain at rest, Denies rapid heart rate, Reports leg edema, Denies lightheadedness, Denies Loss of Consciousness, Denies palpitations and Reports dyspnea on exertion Respiratory: Reports cough and Reports dyspnea on exertion Gastrointestinal: Reports no additional gastrointestinal complaints Musculoskeletal: Reports no additional musculoskeletal complaints Skin/Breast: Reports system reviewed and no additional complaints, except as docu Reports system reviewed and no additional complaints, except as documented Psychiatric: Reports no additional psychiatric complaints Endocrine: Reports no additional endocrine complaints and Denies palpitations Physical Exam Vital Signs: Last Vital Signs Temp 98.8 F 04/05/21 11:50 Pulse 97 04/05/21 11:50 Resp 24 H 04/05/21 11:50 BP 136/60 04/05/21 11:50 Pulse Ox 97 04/05/21 11:50 Oxygen Flow Rate 2 04/02/21 14:46 Body Mass Index 40.2 Const General: cooperative, comfortable and in distress mild and respiratory Nutritional Appearance: obese Orientation/consciousness: patient oriented x3 Neck Neck: Yes trachea midline, Yes supple and Yes JVD Resp Effort & Inspection: normal respiratory effort Auscultation: crackles on the left at the base and diminished lung sounds Cardio Jugular venous distension: JVD Rhythm: abnormal rhythm irregularly irregular Heart sounds: S1 normal heart sound present, S2 normal heart sound present, no click, no gallops and no murmurs GI Inspection: Yes obesity Auscultation: normal bowel sounds Neuro General: patient oriented x3 and no focal motor deficits Extrem General: No clubbing, No cyanosis and Yes edema Results Labs and Meds Result diagrams: 04/05/21 06:32 04/05/21 06:32 Lab results: Laboratory Results - last 24 hr 04/04/21 04/05/21 04/05/21 20:37 06:32 06:32 WBC 9.5 RBC 4.20 Hgb 12.9 Hct 41.8 MCV 99.5 H MCH 30.7 MCHC 30.9 L RDW 14.3 Plt Count 199 MPV 11.7 Immature Gran % (Auto) 1.0 H Neut % (Auto) 85.3 H Lymph % (Auto) 9.5 L [place] % (Auto) 4.1 Eos % (Auto) 0.0 Baso % (Auto) 0.1 Lymph # (Auto) 0.9 L [place] # (Auto) 0.4 Eos # (Auto) 0.0 Baso # (Auto) 0.0 Abs Immat Gran (auto) 0.10 H Absolute Neuts (auto) 8.1 Absolute Nucleated RBC 0.000 Nucleated RBC % (auto) 0.0 Sodium 141 Potassium 5.3 H Chloride 93 L Carbon Dioxide 37 H Anion Gap 16 BUN 47 H Creatinine 1.07 Estim Creat Clear Calc 44.7 Estimated GFR 49 POC Glucose 270 H Fasting Glucose 202 H Calcium 9.7 Total Bilirubin 0.6 AST 31 D ALT 30 Alkaline Phosphatase 85 B-Natriuretic Peptide Total Protein 7.4 Albumin 4.0 04/05/21 04/05/21 04/05/21 06:32 07:19 11:22 WBC RBC Hgb Hct MCV MCH MCHC RDW Plt Count MPV Immature Gran % (Auto) Neut % (Auto) Lymph % (Auto) [place] % (Auto) Eos % (Auto) Baso % (Auto) Lymph # (Auto) [place] # (Auto) Eos # (Auto) Baso # (Auto) Abs Immat Gran (auto) Absolute Neuts (auto) Absolute Nucleated RBC Nucleated RBC % (auto) Sodium Potassium Chloride Carbon Dioxide Anion Gap BUN Creatinine Estim Creat Clear Calc Estimated GFR POC Glucose 194 H 195 H Fasting Glucose Calcium Total Bilirubin AST ALT Alkaline Phosphatase B-Natriuretic Peptide 303 H Total Protein Albumin Progress Note: A&P Assessment and plan (1) Acute respiratory failure with hypoxia: Status: Acute Assessment and Plan: Patient presents with hypoxic respiratory failure with cell symptoms and evidence of fluid overload. Her diuretic response has been tepid. Not sure refer intake and output chart is accurate at this point time. BNP is high. Will increase Lasix to 10 mg an hour. Continue strict intake and output chart. Continue to follow BMP. Replace electrolytes as needed. Continue pulmonary optimization. Continue monitor blood pressure closely and may need to alter her blood pressure regimen. Continue oxygen replacement therapy. Overall prognosis is guarded. (2) Chest pain: Status: Acute Assessment and Plan: Developed chest discomfort with lower blood pressure. This is concerning for myocardial ischemia. Will suggest a myocardial perfusion imaging while inpatient. Perform stress test on Wednesday and rest on Wednesday. Further treatment based on the finding of the test results Fall Risk Details Current Medications: Current Medications Acetaminophen (Acetaminophen 325 Mg Tablet) 650 mg PO Q6H PRN PRN Reason: Pain, Mild (Pain Scale 1-3) Last Admin: 04/03/21 23:45 Dose: 650 mg Documented by: Albuterol Sulfate (Albuterol Sulfate (0.042%) 1.25 Mg/3 Ml Vial.Neb) 0.63 mg INHALE Q4H PRN PRN Reason: shortness of breath or wheezing Albuterol/Ipratropium (Albuterol/Iprat 2.5/0.5mg 3 Ml Ampul.Neb) 3 ml INHALE RQ4H WHILE AWAKE [facility] Last Admin: 04/05/21 11:37 Dose: 3 ml Documented by: Albuterol/Ipratropium (Albuterol/Iprat 2.5/0.5mg 3 Ml Ampul.Neb) 3 ml INHALE RQ4H PRN PRN Reason: Shortness of Breath/Wheezing Apixaban (Apixaban 5 Mg Tablet) 5 mg PO BID [facility] Last Admin: 04/05/21 11:18 Dose: 5 mg Documented by: Artificial Tears (Artificial Tears 15 Ml Drops) 2 drop EYE-BOTH Q4H PRN PRN Reason: Dry Eyes Ascorbic Acid (Ascorbic Acid 500 Mg Tablet) 500 mg PO DAILY [facility] Last Admin: 04/05/21 11:17 Dose: 500 mg Documented by: Azithromycin (Azithromycin 500 Mg Tablet) 500 mg PO Q24H [facility] Stop: 04/08/21 09:59 Last Admin: 04/05/21 11:15 Dose: 500 mg Documented by: Dextrose (Dextrose 50 % 25 Gm/50 Ml Vial) 25 gm IVPUSH Q15M PRN; Protocol PRN Reason: per Hypoglycemia Standing Ord. Diltiazem HCl (Diltiazem Hcl Cd 240 Mg Cap.Er.Deg) 240 mg PO DAILY [facility]; Protocol Last Admin: 04/05/21 11:16 Dose: 240 mg Documented by: Docusate Sodium (Docusate Sodium 100 Mg Capsule) 100 mg PO DAILY PRN PRN Reason: Constipation Fluticasone/Vilanterol (Fluticasone/Vilanterol 200/25 Blst.W.Dev) 1 puff INHALE RDAILY [facility] Last Admin: 04/05/21 11:33 Dose: Not Given Documented by: Folic Acid (Folic Acid 1 Mg Tablet) 1 mg PO DAILY [facility] Last Admin: 04/05/21 11:18 Dose: 1 mg Documented by: Gabapentin (Gabapentin 300 Mg Capsule) 300 mg PO BEDTIME [facility] Last Admin: 04/04/21 20:12 Dose: 300 mg Documented by: Glucose (Glucose Gel 15 Gm Gel..Gram.) 15 gm PO Q15M PRN; Protocol PRN Reason: per Hypoglycemia Standing Ord. Furosemide 200 mg/ Sodium (Chloride) 100 mls @ 2.5 mls/hr IVCONT .Q24H [facility] Last Admin: 04/05/21 12:43 Dose: 5 mg/hr, 2.5 mls/hr Documented by: Ceftriaxone Sodium 1 gm/ (Sodium Chloride) 50 mls @ 100 mls/hr IV Q24H [facility] Last Infusion: 04/05/21 12:36 Dose: Infused Documented by: Insulin Human Lispro (Insulin Lispro 100 Unit/Ml 3 Ml Vial) 0 unit SUBCUT QIDACHS [facility]; Protocol Last Admin: 04/05/21 12:01 Dose: 2 unit Documented by: Levothyroxine Sodium (Levothyroxine Sodium 50 Mcg Tablet) 50 mcg PO DAILY@0630 [facility] Last Admin: 04/05/21 05:14 Dose: 50 mcg Documented by: Lisinopril (Lisinopril 40 Mg Tablet) 40 mg PO DAILY [facility]; Protocol Last Admin: 04/05/21 11:18 Dose: 40 mg Documented by: Meclizine HCl (Meclizine Hcl 25 Mg Tablet) 25 mg PO DAILY PRN PRN Reason: dizziness Methylprednisolone Sodium Succinate (Methylprednisolone Sod Succ 40 Mg/Ml Vial) 40 mg IVPUSH Q12H [facility] Last Admin: 04/05/21 12:32 Dose: 40 mg Documented by: Naproxen (Naproxen 500 Mg Tablet) 500 mg PO BID PRN PRN Reason: Pain Omeprazole (Omeprazole 20 Mg Capsule.Dr) 20 mg PO DAILY@0600 [facility] Last Admin: 04/05/21 05:14 Dose: 20 mg Documented by: Ondansetron HCl (Ondansetron Hcl 4 Mg/2 Ml Vial) 4 mg IVPUSH Q8H PRN PRN Reason: Nausea and Vomiting Pharmacy Consult (Consult Rx Perform Med Rec) 1 each MISCELLANE ONCE PRN PRN Reason: Consult order Sertraline HCl (Sertraline Hcl 50 Mg Tablet) 50 mg PO DAILY [facility] Last Admin: 04/05/21 11:17 Dose: 50 mg Documented by: Sodium Chloride (0.9 % Sodium Chloride Flush 3 Ml Syringe) 3 ml IVFLUSH QSHIFT [facility] Last Admin: 04/05/21 08:06 Dose: Not Given Documented by: Spironolactone (Spironolactone 25 Mg Tablet) 25 mg PO DAILY [facility]; Protocol Last Admin: 04/05/21 11:17 Dose: 25 mg Documented by: Sulfasalazine (Sulfasalazine 500 Mg Tablet) 500 mg PO DAILY@1300 [facility] Last Admin: 04/05/21 12:32 Dose: 500 mg Documented by: Tiotropium [place] (Tiotropium [place] 18 Mcg Cap.W.Dev) 1 puff INHALE RDAILY [facility] Last Admin: 04/05/21 07:39 Dose: 1 puff Documented by: Time Spent With Patient Time: Total time spent is greater than 50% in coordination of care (as documented) at patient's floor/unit and/or counseling patient: Time with patient: 25 - 35 minutes Progress Note: Quality Stroke Does the patient have a stroke diagnosis?: No Procedures Date of Service Date of Service: 04/05/21
--- NOTE | 2021-04-05 14:23 | P.PNIM_ITS ---
Subjective Subjective Date of Service: 04/05/21 Interval History: Minimal improvement overall. States legs are better from a swelling standpoint however breathing is basically unchanged. Still with productive cough Review of Systems Episode of squeezing chest pain overnight Ongoing shortness of breath Denies nausea vomiting diarrhea Physical Exam Vital Signs: Vital Signs: Last Vital Signs Temp 98.8 F 04/05/21 11:50 Pulse 97 04/05/21 11:50 Resp 24 H 04/05/21 11:50 BP 136/60 04/05/21 11:50 Pulse Ox 97 04/05/21 11:50 Oxygen Flow Rate 2 04/02/21 14:46 Body Mass Index 40.2 Const: Other: No acute distress HENMT: Other: Membranes moist oropharynx clear Resp: Other: Diminished at bases with diffuse expiratory wheezes heard Cardio: Other: No S4; positive S1-S2; no S3 murmurs or gallops GI: Other: Obese/soft nontender note that also Neuro: Other: Cranial nerves 2-12 grossly intact as tested. Motor is 5/5 all extremities. Sensation intact. Extrem: Other: Positive edema bilaterally Objective Data Active Medications Acetaminophen (Acetaminophen 325 Mg Tablet) 650 mg PO Q6H PRN PRN Reason: Pain, Mild (Pain Scale 1-3) Last Admin: 04/03/21 23:45 Dose: 650 mg Documented by: AMBER Albuterol Sulfate (Albuterol Sulfate (0.042%) 1.25 Mg/3 Ml Vial.Neb) 0.63 mg INHALE Q4H PRN PRN Reason: shortness of breath or wheezing Albuterol/Ipratropium (Albuterol/Iprat 2.5/0.5mg 3 Ml Ampul.Neb) 3 ml INHALE RQ4H WHILE AWAKE [facility] Last Admin: 04/05/21 11:37 Dose: 3 ml Documented by: HANNAH Albuterol/Ipratropium (Albuterol/Iprat 2.5/0.5mg 3 Ml Ampul.Neb) 3 ml INHALE RQ4H PRN PRN Reason: Shortness of Breath/Wheezing Apixaban (Apixaban 5 Mg Tablet) 5 mg PO BID [facility] Last Admin: 04/05/21 11:18 Dose: 5 mg Documented by: SHA Artificial Tears (Artificial Tears 15 Ml Drops) 2 drop EYE-BOTH Q4H PRN PRN Reason: Dry Eyes Ascorbic Acid (Ascorbic Acid 500 Mg Tablet) 500 mg PO DAILY [facility] Last Admin: 04/05/21 11:17 Dose: 500 mg Documented by: SHA Azithromycin (Azithromycin 500 Mg Tablet) 500 mg PO Q24H [facility] Stop: 04/08/21 09:59 Last Admin: 04/05/21 11:15 Dose: 500 mg Documented by: SHA Dextrose (Dextrose 50 % 25 Gm/50 Ml Vial) 25 gm IVPUSH Q15M PRN; Protocol PRN Reason: per Hypoglycemia Standing Ord. Diltiazem HCl (Diltiazem Hcl Cd 240 Mg Cap.Er.Deg) 240 mg PO DAILY [facility]; Protoco l Last Admin: 04/05/21 11:16 Dose: 240 mg Documented by: SHA Docusate Sodium (Docusate Sodium 100 Mg Capsule) 100 mg PO DAILY PRN PRN Reason: Constipation Fluticasone/Vilanterol (Fluticasone/Vilanterol 200/25 Blst.W.Dev) 1 puff INHALE RDAILY [facility] Last Admin: 04/05/21 11:33 Dose: Not Given Documented by: HANNAH Non-Admin Reason: Med Not Available Folic Acid (Folic Acid 1 Mg Tablet) 1 mg PO DAILY [facility] Last Admin: 04/05/21 11:18 Dose: 1 mg Documented by: SHA Gabapentin (Gabapentin 300 Mg Capsule) 300 mg PO BEDTIME [facility] Last Admin: 04/04/21 20:12 Dose: 300 mg Documented by: KILLIANOIC Glucose (Glucose Gel 15 Gm Gel..Gram.) 15 gm PO Q15M PRN; Protocol PRN Reason: per Hypoglycemia Standing Ord. Ceftriaxone Sodium 1 gm/ (Sodium Chloride) 50 mls @ 100 mls/hr IV Q24H [facility] Last Infusion: 04/05/21 12:36 Dose: 100 mls/hr Documented by: SHA Furosemide 200 mg/ Sodium (Chloride) 100 mls @ 5 mls/hr IVCONT .Q20H [facility] Insulin Human Lispro (Insulin Lispro 100 Unit/Ml 3 Ml Vial) 0 unit SUBCUT QIDACHS [facility]; Protocol Last Admin: 04/05/21 12:01 Dose: 2 unit Documented by: SHA Levothyroxine Sodium (Levothyroxine Sodium 50 Mcg Tablet) 50 mcg PO DAILY@0630 [facility] Last Admin: 04/05/21 05:14 Dose: 50 mcg Documented by: PETER Lisinopril (Lisinopril 40 Mg Tablet) 40 mg PO DAILY [facility]; Protocol Last Admin: 04/05/21 11:18 Dose: 40 mg Documented by: SHA Meclizine HCl (Meclizine Hcl 25 Mg Tablet) 25 mg PO DAILY PRN PRN Reason: dizziness Methylprednisolone Sodium Succinate (Methylprednisolone Sod Succ 40 Mg/Ml Vial) 40 mg IVPUSH Q12H [facility] Last Admin: 04/05/21 12:32 Dose: 40 mg Documented by: SHA Naproxen (Naproxen 500 Mg Tablet) 500 mg PO BID PRN PRN Reason: Pain Omeprazole (Omeprazole 20 Mg Capsule.Dr) 20 mg PO DAILY@0600 [facility] Last Admin: 04/05/21 05:14 Dose: 20 mg Documented by: PETER Ondansetron HCl (Ondansetron Hcl 4 Mg/2 Ml Vial) 4 mg IVPUSH Q8H PRN PRN Reason: Nausea and Vomiting Pharmacy Consult (Consult Rx Perform Med Rec) 1 each MISCELLANE ONCE PRN PRN Reason: Consult order Sertraline HCl (Sertraline Hcl 50 Mg Tablet) 50 mg PO DAILY [facility] Last Admin: 04/05/21 11:17 Dose: 50 mg Documented by: SHA Sodium Chloride (0.9 % Sodium Chloride Flush 3 Ml Syringe) 3 ml IVFLUSH QSHIFT [facility] Last Admin: 04/05/21 08:06 Dose: Not Given Documented by: DAWIT Non-Admin Reason: IV Running Spironolactone (Spironolactone 25 Mg Tablet) 25 mg PO DAILY [facility]; Protocol Last Admin: 04/05/21 11:17 Dose: 25 mg Documented by: SHA Sulfasalazine (Sulfasalazine 500 Mg Tablet) 500 mg PO DAILY@1300 [facility] Last Admin: 04/05/21 12:32 Dose: 500 mg Documented by: SHA Tiotropium [place] (Tiotropium [place] 18 Mcg Cap.W.Dev) 1 puff INHALE RDAILY [facility] Last Admin: 04/05/21 07:39 Dose: 1 puff Documented by: TAYC Labs CBC & Chem 7: 04/05/21 06:32 04/05/21 06:32 Labs: Laboratory Results - last 24 hr 04/04/21 04/05/21 04/05/21 20:37 06:32 06:32 MCV 99.5 H MCH 30.7 MCHC 30.9 L RDW 14.3 Plt Count 199 MPV 11.7 Immature Gran % (Auto) 1.0 H Neut % (Auto) 85.3 H Lymph % (Auto) 9.5 L [place] % (Auto) 4.1 Eos % (Auto) 0.0 Baso % (Auto) 0.1 Lymph # (Auto) 0.9 L [place] # (Auto) 0.4 Eos # (Auto) 0.0 Baso # (Auto) 0.0 Abs Immat Gran (auto) 0.10 H Absolute Neuts (auto) 8.1 Absolute Nucleated RBC 0.000 Nucleated RBC % (auto) 0.0 Anion Gap 16 Estim Creat Clear Calc 44.7 Estimated GFR 49 POC Glucose 270 H Fasting Glucose 202 H Calcium 9.7 Total Bilirubin 0.6 AST 31 D ALT 30 Alkaline Phosphatase 85 B-Natriuretic Peptide Total Protein 7.4 Albumin 4.0 04/05/21 04/05/21 04/05/21 06:32 07:19 11:22 MCV MCH MCHC RDW Plt Count MPV Immature Gran % (Auto) Neut % (Auto) Lymph % (Auto) [place] % (Auto) Eos % (Auto) Baso % (Auto) Lymph # (Auto) [place] # (Auto) Eos # (Auto) Baso # (Auto) Abs Immat Gran (auto) Absolute Neuts (auto) Absolute Nucleated RBC Nucleated RBC % (auto) Anion Gap Estim Creat Clear Calc Estimated GFR POC Glucose 194 H 195 H Fasting Glucose Calcium Total Bilirubin AST ALT Alkaline Phosphatase B-Natriuretic Peptide 303 H Total Protein Albumin Assessment and Plan (1) Acute respiratory failure with hypoxia: Status: Acute (2) COPD exacerbation: Status: Acute (3) CHF exacerbation: Status: Acute Assessment and Plan: 80-year-old female with past medical history of COPD, CHF, AFib presents to the hospital with complaints of shortness of breath and hypoxia. Some improvement with Lasix drip; decreased 5 milligrams/hour this a.m. continues to complain of exertional shortness of breath with productive cough 1. Decompensated CHF A BNP has risen from 266-303 on 5 milligrams/hour. Will increase to 10 mill igrams/hour and follow response. Describes squeezing chest pain over night; discussed with Cardiology ... to arrange cardiac imaging in a.m. Continue supplemental oxygen titrating sats to greater than or equal to 92 % 2. COPD exacerbation Query component of post COVID syndrome. Would continue with steroids and DuoNeb therapies. Titrate O2 to maintain sats above 92%. Discussed with patient... States PCP usually treats with antibiotics if sputum production; given such will start antibiotics along with steroids and DuoNebs Follow response to therapies. Arange CPAP at night while in hospital 3. Persistent atrial fibrillation Rate control adequate; continue telemetry. Continue Eliquis/calcium channel elkin as ordered. Cardiology to determine imaging in the morning 4. Hypertension Continue lisinopril, diltiazem, Aldactone 5. Hypothyroidism Continue levothyroxine; check TSH in a.m. 6. Type 2 DM Restart glipizide at 5 mg daily Cover with sliding scale; adjust as indicated DVT prophylaxis: Eliquis Quality Stroke Does the patient have a stroke diagnosis?: No VTE Prior VTE?: No VTE Risk Level:: Medical - moderate - high VTE Device Contraindication: Treatment Not Indicated VTE Drug Contraindication: N/A - Med Ordered
[2021-04-05 16:29] LABS: Glucose, Whole Blood 221 mg/dL (60-115)
[2021-04-05] MEDS: 0.9 % Sodium Chloride Flush 3 ML SYRINGE IVFLUSH ×2 (16:41→20:53)
[2021-04-05] MEDS: Acetaminophen 325 MG TABLET 650 MG PO (18:41)
[2021-04-05 20:42] LABS: Glucose, Whole Blood 262 mg/dL (60-115)
[2021-04-05] MEDS: Gabapentin 300 MG CAPSULE PO (20:52)
[2021-04-06] VITALS (17 sets, daily range): BP systolic 105–136; BP diastolic 61–76; PULSE 80–113; RESP 18–22; TEMP 36.1–37.2; O2SAT 90–98
[2021-04-06 06:15] LABS: MANUAL DIFF FLAG NO
[2021-04-06 06:23] LABS: Basophils Percent Auto 0.1 % (0-2); Hematocrit 44.7 % (37.0-47.0); Hemoglobin 13.8 g/dl (12.0-16.0); Imm Gran Abs Auto 0.07 X10*3/uL (0.00-0.03); Imm Gran Pct Auto 0.7 % (0.0-0.4); Lymphocytes Percent Auto 10.1 % (20-40); Mean Corpuscular HGB Conc 30.9 g/dl (31.0-35.0); Mean Corpuscular Hemoglobin 30.5 pg (27.0-33.0); Mean Corpuscular Volume 98.7 fL (80.0-98.0); Mean Platelet Volume 11.8 fL (9.4-12.3); Monocytes Absolute Auto 0.5 X10*3/uL (0.1-1.2); Monocytes Percent Auto 4.5 % (2-11); Neutrophils Absolute Auto 8.5 x10*3/uL (2.0-8.3); Neutrophils Percent Auto 84.6 % (45-73); Platelet Count 217 X10*3/uL (160-400); Red Blood Count 4.53 X10*6/uL (4.20-5.50); Red Cell Distribution Width 14.5 % (11.0-16.0); White Blood Count 10.1 X10*3/uL (4.8-10.8)
[2021-04-06] MEDS: Levothyroxine Sodium 50 MCG TABLET PO (06:30)
[2021-04-06] MEDS: Omeprazole 20 MG CAPSULE.DR PO (06:30)
[2021-04-06 06:55] LABS: Alanine Aminotransferase 52 U/L (0-31); Albumin Level 4.2 g/dL (3.5-5.0); Alkaline Phosphatase 90 U/L (39-117); Anion Gap 15 (12-20); Aspartate Amino Transferase 39 U/L (5-31); Bilirubin Total 0.7 mg/dL (0.0-1.0); Blood Urea Nitrogen 61 mg/dL (9-16); Calcium 10.3 mg/dL (8.4-10.2); Carbon Dioxide 39 mmol/L (22-29); Chloride 91 mmol/L (96-108); Creatinine Clr Calc Pharmacy 38.9; Estimated Glomerular Filt Rate 42; Glucose Fasting 240 mg/dL (60-99); Potassium 5.2 mmol/L (3.3-5.1); Sodium 140 mmol/L (135-145); Total Protein 7.8 g/dL (6.5-8.0)
[2021-04-06 07:29] LABS: Glucose, Whole Blood 216 mg/dL (60-115)
[2021-04-06] MEDS: Albuterol/Iprat 2.5/0.5MG 3 ML AMPUL.NEB INHALE ×4 (07:44→18:41)
[2021-04-06] MEDS: Fluticasone/Vilanterol 200/25 BLST.W.DEV 1 PUFF INHALE (07:47)
[2021-04-06] MEDS: 0.9 % Sodium Chloride Flush 3 ML SYRINGE IVFLUSH ×3 (08:13→22:23)
[2021-04-06] MEDS: Insulin Lispro 100 UNIT/ML 3 ML VIAL SUBCUT ×4 (08:13→22:23)
[2021-04-06] MEDS: Ascorbic Acid 500 MG TABLET PO (08:15)
[2021-04-06] MEDS: Sertraline HCL 50 MG TABLET PO (08:15)
[2021-04-06] MEDS: Spironolactone 25 MG TABLET PO (08:15)
[2021-04-06] MEDS: Apixaban 5 MG TABLET PO ×2 (08:15→22:23)
[2021-04-06] MEDS: Folic Acid 1 MG TABLET PO (08:15)
[2021-04-06] MEDS: lisinopriL 40 MG TABLET PO (08:16)
[2021-04-06] MEDS: dilTIAZem HCL CD 240 MG CAP.ER.DEG PO (08:17)
[2021-04-06] MEDS: Furosemide 200 MG in 0.9 % Sodium Chloride 80 ML IVCONT (10:21)
[2021-04-06] MEDS: Azithromycin 500 MG TABLET PO (10:24)
[2021-04-06] MEDS: cefTRIAXone sodium 1 GM in 0.9 % Sodium Chloride 50 ML IV (10:24)
[2021-04-06 11:32] LABS: Glucose, Whole Blood 247 mg/dL (60-115)
--- NOTE | 2021-04-06 11:34 | P.PNCA_ITS ---
Subjective Subjective Date of Service: 04/06/21 Principal diagnosis: Respiratory failure, congestive heart failure Interval history: Feeling better today. Has been diuresing gently. No recurrent chest pain. Blood pressure is stable. Review of Systems Review of Systems Yes all other systems are reviewed and are negative Physical Exam Vital Signs: Last Vital Signs Temp 98.2 F 04/06/21 08:00 Pulse 87 04/06/21 11:18 Resp 22 H 04/06/21 08:00 BP 123/61 04/06/21 08:17 Pulse Ox 94 04/06/21 08:00 Oxygen Flow Rate 2 04/02/21 14:46 Body Mass Index 40.2 Const General: cooperative, comfortable, no acute distress, alert and awake Nutritional Appearance: obese Orientation/consciousness: patient oriented x3 Neck Neck: Yes trachea midline and Yes supple Resp Effort & Inspection: normal respiratory effort Auscultation: wheezes scattered wheezes and diminished lung sounds Cardio Rhythm: abnormal rhythm irregularly irregular Heart sounds: S1 normal heart sound present, S2 normal heart sound present, no click, no gallops and no murmurs GI Auscultation: normal bowel sounds Skin General skin exam: no rashes or lesions noted and ecchymosis Neuro General: patient oriented x3 and no focal motor deficits Extrem General: No clubbing, No cyanosis and Yes edema Results Labs and Meds Result diagrams: 04/06/21 05:48 04/06/21 05:48 Lab results: Laboratory Results - last 24 hr 04/05/21 04/05/21 04/06/21 16:21 20:12 05:48 WBC 10.1 RBC 4.53 Hgb 13.8 Hct 44.7 MCV 98.7 H MCH 30.5 MCHC 30.9 L RDW 14.5 Plt Count 217 MPV 11.8 Immature Gran % (Auto) 0.7 H Neut % (Auto) 84.6 H Lymph % (Auto) 10.1 L [place] % (Auto) 4.5 Eos % (Auto) 0.0 Baso % (Auto) 0.1 Lymph # (Auto) 1.0 L [place] # (Auto) 0.5 Eos # (Auto) 0.0 Baso # (Auto) 0.0 Abs Immat Gran (auto) 0.07 H Absolute Neuts (auto) 8.5 H Absolute Nucleated RBC 0.000 Nucleated RBC % (auto) 0.0 Sodium Potassium Chloride Carbon Dioxide Anion Gap BUN Creatinine Estim Creat Clear Calc Estimated GFR POC Glucose 221 H 262 H Fasting Glucose Calcium Total Bilirubin AST ALT Alkaline Phosphatase Total Protein Albumin 04/06/21 04/06/21 04/06/21 05:48 07:19 11:25 WBC RBC Hgb Hct MCV MCH MCHC RDW Plt Count MPV Immature Gran % (Auto) Neut % (Auto) Lymph % (Auto) [place] % (Auto) Eos % (Auto) Baso % (Auto) Lymph # (Auto) [place] # (Auto) Eos # (Auto) Baso # (Auto) Abs Immat Gran (auto) Absolute Neuts (auto) Absolute Nucleated RBC Nucleated RBC % (auto) Sodium 140 Potassium 5.2 H Chloride 91 L Carbon Dioxide 39 H Anion Gap 15 BUN 61 H Creatinine 1.23 Estim Creat Clear Calc 38.9 Estimated GFR 42 POC Glucose 216 H 247 H Fasting Glucose 240 H Calcium 10.3 H D Total Bilirubin 0.7 AST 39 H ALT 52 H Alkaline Phosphatase 90 Total Protein 7.8 Albumin 4.2 Progress Note: A&P Assessment and plan (1) Acute respiratory failure with hypoxia: Status: Acute Assessment and Plan: Respiratory failure with hypoxemia, multifactorial CHF exacerbation. Today doing better. Continue IV Lasix for 1 more day. Strict intake and output chart needs to be pursued. Continue Aldactone therapy. Continue management of her COPD. May benefit with CardioMEMS device given her difficulty to assess fluid status. (2) Chest pain: Status: Acute Assessment and Plan: Chest pain. No recurrence. Will for low myocardial perfusion imaging as inpatient tomorrow. Further treatment based on the findings. Continue current medical management. Fall Risk Details Current Medications: Current Medications Acetaminophen (Acetaminophen 325 Mg Tablet) 650 mg PO Q6H PRN PRN Reason: Pain, Mild (Pain Scale 1-3) Last Admin: 04/05/21 18:41 Dose: 650 mg Documented by: Albuterol Sulfate (Albuterol Sulfate (0.042%) 1.25 Mg/3 Ml Vial.Neb) 0.63 mg INHALE Q4H PRN PRN Reason: shortness of breath or wheezing Albuterol/Ipratropium (Albuterol/Iprat 2.5/0.5mg 3 Ml Ampul.Neb) 3 ml INHALE RQ4H WHILE AWAKE [facility] Last Admin: 04/06/21 11:17 Dose: 3 ml Documented by: Albuterol/Ipratropium (Albuterol/Iprat 2.5/0.5mg 3 Ml Ampul.Neb) 3 ml INHALE RQ4H PRN PRN Reason: Shortness of Breath/Wheezing Last Admin: 04/06/21 07:44 Dose: 3 ml Documented by: Apixaban (Apixaban 5 Mg Tablet) 5 mg PO BID [facility] Last Admin: 04/06/21 08:15 Dose: 5 mg Documented by: Artificial Tears (Artificial Tears 15 Ml Drops) 2 drop EYE-BOTH Q4H PRN PRN Reason: Dry Eyes Ascorbic Acid (Ascorbic Acid 500 Mg Tablet) 500 mg PO DAILY [facility] Last Admin: 04/06/21 08:15 Dose: 500 mg Documented by: Azithromycin (Azithromycin 500 Mg Tablet) 500 mg PO Q24H [facility] Stop: 04/08/21 09:59 Last Admin: 04/06/21 10:24 Dose: 500 mg Documented by: Dextrose (Dextrose 50 % 25 Gm/50 Ml Vial) 25 gm IVPUSH Q15M PRN; Protocol PRN Reason: per Hypoglycemia Standing Ord. Diltiazem HCl (Diltiazem Hcl Cd 240 Mg Cap.Er.Deg) 240 mg PO DAILY [facility]; Protocol Last Admin: 04/06/21 08:17 Dose: 240 mg Documented by: Docusate Sodium (Docusate Sodium 100 Mg Capsule) 100 mg PO DAILY PRN PRN Reason: Constipation Fluticasone/Vilanterol (Fluticasone/Vilanterol 200/25 Blst.W.Dev) 1 puff INHALE RDAILY [facility] Last Admin: 04/06/21 07:47 Dose: 1 puff Documented by: Folic Acid (Folic Acid 1 Mg Tablet) 1 mg PO DAILY [facility] Last Admin: 04/06/21 08:15 Dose: 1 mg Documented by: Gabapentin (Gabapentin 300 Mg Capsule) 300 mg PO BEDTIME [facility] Last Admin: 04/05/21 20:52 Dose: 300 mg Documented by: Glucose (Glucose Gel 15 Gm Gel..Gram.) 15 gm PO Q15M PRN; Protocol PRN Reason: per Hypoglycemia Standing Ord. Ceftriaxone Sodium 1 gm/ (Sodium Chloride) 50 mls @ 100 mls/hr IV Q24H [facility] Last Infusion: 04/06/21 11:13 Dose: Infused Documented by: Furosemide 200 mg/ Sodium (Chloride) 100 mls @ 5 mls/hr IVCONT .Q20H [facility] Last Admin: 04/06/21 10:21 Dose: 10 mg/hr, 5 mls/hr Documented by: Insulin Human Lispro (Insulin Lispro 100 Unit/Ml 3 Ml Vial) 0 unit SUBCUT QIDACHS [facility]; Protocol Last Admin: 04/06/21 08:13 Dose: 4 unit Documented by: Levothyroxine Sodium (Levothyroxine Sodium 50 Mcg Tablet) 50 mcg PO DAILY@0630 [facility] Last Admin: 04/06/21 06:30 Dose: 50 mcg Documented by: Lisinopril (Lisinopril 40 Mg Tablet) 40 mg PO DAILY [facility]; Protocol Last Admin: 04/06/21 08:16 Dose: 40 mg Documented by: Meclizine HCl (Meclizine Hcl 25 Mg Tablet) 25 mg PO DAILY PRN PRN Reason: dizziness Methylprednisolone Sodium Succinate (Methylprednisolone Sod Succ 40 Mg/Ml Vial) 40 mg IVPUSH Q12H [facility] Last Admin: 04/05/21 21:53 Dose: 40 mg Documented by: Naproxen (Naproxen 500 Mg Tablet) 500 mg PO BID PRN PRN Reason: Pain Omeprazole (Omeprazole 20 Mg Capsule.Dr) 20 mg PO DAILY@0600 [facility] Last Admin: 04/06/21 06:30 Dose: 20 mg Documented by: Ondansetron HCl (Ondansetron Hcl 4 Mg/2 Ml Vial) 4 mg IVPUSH Q8H PRN PRN Reason: Nausea and Vomiting Pharmacy Consult (Consult Rx Perform Med Rec) 1 each MISCELLANE ONCE PRN PRN Reason: Consult order Sertraline HCl (Sertraline Hcl 50 Mg Tablet) 50 mg PO DAILY [facility] Last Admin: 04/06/21 08:15 Dose: 50 mg Documented by: Sodium Chloride (0.9 % Sodium Chloride Flush 3 Ml Syringe) 3 ml IVFLUSH QSHIFT [facility] Last Admin: 04/06/21 08:13 Dose: 3 ml Documented by: Spironolactone (Spironolactone 25 Mg Tablet) 25 mg PO DAILY [facility]; Protocol Last Admin: 04/06/21 08:15 Dose: 25 mg Documented by: Sulfasalazine (Sulfasalazine 500 Mg Tablet) 500 mg PO DAILY@1300 [facility] Last Admin: 04/05/21 12:32 Dose: 500 mg Documented by: Tiotropium [place] (Tiotropium [place] 18 Mcg Cap.W.Dev) 1 puff INHALE RDAILY [facility] Last Admin: 04/06/21 07:47 Dose: 1 puff Documented by: Time Spent With Patient Time: Total time spent is greater than 50% in coordination of care (as documented) at patient's floor/unit and/or counseling patient: Time with patient: 25 - 35 minutes Progress Note: Quality Stroke Does the patient have a stroke diagnosis?: No Procedures Date of Service Date of Service: 04/06/21
[2021-04-06] MEDS: methylPREDNISolone Sod Succ 40 MG/ML VIAL IVPUSH ×2 (12:05→22:26)
[2021-04-06] MEDS: sulfaSALAzine 500 MG TABLET PO (12:06)
--- NOTE | 2021-04-06 12:07 | P.PNIM_ITS ---
Subjective Subjective Date of Service: 04/06/21 Interval History: No further chest pain per patient. Feels better since antibiotics started. No acute issues Review of Systems Denies chest pain Denies shortness of breath Denies nausea vomiting diarrhea Physical Exam Vital Signs: Vital Signs: Last Vital Signs Temp 98.2 F 04/06/21 08:00 Pulse 87 04/06/21 11:18 Resp 22 H 04/06/21 08:00 BP 123/61 04/06/21 08:17 Pulse Ox 94 04/06/21 08:00 Oxygen Flow Rate 2 04/02/21 14:46 Body Mass Index 40.2 Const: Other: No acute distress HENMT: Other: Membranes moist oropharynx clear Resp: Other: Diminished at bases with diffuse expiratory wheezes heard Cardio: Other: No S4; positive S1-S2; no S3 murmurs or gallops GI: Other: Obese/soft nontender note that also Neuro: Other: Cranial nerves 2-12 grossly intact as tested. Motor is 5/5 all extremities. Sensation intact. Extrem: Other: Positive edema bilaterally Objective Data Active Medications Acetaminophen (Acetaminophen 325 Mg Tablet) 650 mg PO Q6H PRN PRN Reason: Pain, Mild (Pain Scale 1-3) Last Admin: 04/05/21 18:41 Dose: 650 mg Documented by: DAWIT Albuterol Sulfate (Albuterol Sulfate (0.042%) 1.25 Mg/3 Ml Vial.Neb) 0.63 mg INHALE Q4H PRN PRN Reason: shortness of breath or wheezing Albuterol/Ipratropium (Albuterol/Iprat 2.5/0.5mg 3 Ml Ampul.Neb) 3 ml INHALE RQ4H WHILE AWAKE [facility] Last Admin: 04/06/21 11:17 Dose: 3 ml Documented by: FRANKLIN Albuterol/Ipratropium (Albuterol/Iprat 2.5/0.5mg 3 Ml Ampul.Neb) 3 ml INHALE RQ4H PRN PRN Reason: Shortness of Breath/Wheezing Last Admin: 04/06/21 07:44 Dose: 3 ml Documented by: FRANKLIN Apixaban (Apixaban 5 Mg Tablet) 5 mg PO BID [facility] Last Admin: 04/06/21 08:15 Dose: 5 mg Documented by: DAWIT Artificial Tears (Artificial Tears 15 Ml Drops) 2 drop EYE-BOTH Q4H PRN PRN Reason: Dry Eyes Ascorbic Acid (Ascorbic Acid 500 Mg Tablet) 500 mg PO DAILY [facility] Last Admin: 04/06/21 08:15 Dose: 500 mg Documented by: DAWIT Azithromycin (Azithromycin 500 Mg Tablet) 500 mg PO Q24H [facility] Stop: 04/08/21 09:59 Last Admin: 04/06/21 10:24 Dose: 500 mg Documented by: DAWIT Dextrose (Dextrose 50 % 25 Gm/50 Ml Vial) 25 gm IVPUSH Q15M PRN; Protocol PRN Reason: per Hypoglycemia Standing Ord. Diltiazem HCl (Diltiazem Hcl Cd 240 Mg Cap.Er.Deg) 240 mg PO DAILY [facility]; Protocol Last Admin: 04/06/21 08:17 Dose: 240 mg Documented by: DAWTI Docusate Sodium (Docusate Sodium 100 Mg Capsule) 100 mg PO DAILY PRN PRN Reason: Constipation Fluticasone/Vilanterol (Fluticasone/Vilanterol 200/25 Blst.W.Dev) 1 puff INHALE RDAILY [facility] Last Admin: 04/06/21 07:47 Dose: 1 puff Documented by: FRANKLIN Folic Acid (Folic Acid 1 Mg Tablet) 1 mg PO DAILY [facility] Last Admin: 04/06/21 08:15 Dose: 1 mg Documented by: DAWIT Gabapentin (Gabapentin 300 Mg Capsule) 300 mg PO BEDTIME [facility] Last Admin: 04/05/21 20:52 Dose: 300 mg Documented by: ANTOIC Glucose (Glucose Gel 15 Gm Gel..Gram.) 15 gm PO Q15M PRN; Protocol PRN Reason: per Hypoglycemia Standing Ord. Ceftriaxone Sodium 1 gm/ (Sodium Chloride) 50 mls @ 100 mls/hr IV Q24H [facility] Last Infusion: 04/06/21 11:13 Dose: 0 mls/hr Documented by: DAWIT Furosemide 200 mg/ Sodium (Chloride) 100 mls @ 5 mls/hr IVCONT .Q20H [facility] Last Admin: 04/06/21 10:21 Dose: 10 mg/hr, 5 mls/hr Documented by: DAWIT Insulin Human Lispro (Insulin Lispro 100 Unit/Ml 3 Ml Vial) 0 unit SUBCUT QIDACHS [facility]; Protocol Last Admin: 04/06/21 12:05 Dose: 4 unit Documented by: DAWIT Levothyroxine Sodium (Levothyroxine Sodium 50 Mcg Tablet) 50 mcg PO DAILY@0630 [facility] Last Admin: 04/06/21 06:30 Dose: 50 mcg Documented by: ANTCHANDRAKANT Lisinopril (Lisinopril 40 Mg Tablet) 40 mg PO DAILY [facility]; Protocol Last Admin: 04/06/21 08:16 Dose: 40 mg Documented by: DAWIT Meclizine HCl (Meclizine Hcl 25 Mg Tablet) 25 mg PO DAILY PRN PRN Reason: dizziness Methylprednisolone Sodium Succinate (Methylprednisolone Sod Succ 40 Mg/Ml Vial) 40 mg IVPUSH Q12H [facility] Last Admin: 04/06/21 12:05 Dose: 40 mg Documented by: DAWIT Naproxen (Naproxen 500 Mg Tablet) 500 mg PO BID PRN PRN Reason: Pain Omeprazole (Omeprazole 20 Mg Capsule.) 20 mg PO DAILY@0600 [facility] Last Admin: 04/06/21 06:30 Dose: 20 mg Documented by: PETER Ondansetron HCl (Ondansetron Hcl 4 Mg/2 Ml Vial) 4 mg IVPUSH Q8H PRN PRN Reason: Nausea and Vomiting Pharmacy Consult (Consult Rx Perform Med Rec) 1 each MISCELLANE ONCE PRN PRN Reason: Consult order Sertraline HCl (Sertraline Hcl 50 Mg Tablet) 50 mg PO DAILY [facility] Last Admin: 04/06/21 08:15 Dose: 50 mg Documented by: DAWIT Sodium Chloride (0.9 % Sodium Chloride Flush 3 Ml Syringe) 3 ml IVFLUSH QSHIFT [facility] Last Admin: 04/06/21 08:13 Dose: 3 ml Documented by: DAWIT Spironolactone (Spironolactone 25 Mg Tablet) 25 mg PO DAILY [facility]; Protocol Last Admin: 04/06/21 08:15 Dose: 25 mg Documented by: DAWIT Sulfasalazine (Sulfasalazine 500 Mg Tablet) 500 mg PO DAILY@1300 [facility] Last Admin: 04/05/21 12:32 Dose: 500 mg Documented by: SHA Tiotropium [place] (Tiotropium [place] 18 Mcg Cap.W.Dev) 1 puff INHALE RDAILY [facility] Last Admin: 04/06/21 07:47 Dose: 1 puff Documented by: FRANKLIN Labs CBC & Chem 7: 04/06/21 05:48 04/06/21 05:48 Labs: Laboratory Results - last 24 hr 04/05/21 04/05/21 04/06/21 16:21 20:12 05:48 MCV 98.7 H MCH 30.5 MCHC 30.9 L RDW 14.5 Plt Count 217 MPV 11.8 Immature Gran % (Auto) 0.7 H Neut % (Auto) 84.6 H Lymph % (Auto) 10.1 L [place] % (Auto) 4.5 Eos % (Auto) 0.0 Baso % (Auto) 0.1 Lymph # (Auto) 1.0 L [place] # (Auto) 0.5 Eos # (Auto) 0.0 Baso # (Auto) 0.0 Abs Immat Gran (auto) 0.07 H Absolute Neuts (auto) 8.5 H Absolute Nucleated RBC 0.000 Nucleated RBC % (auto) 0.0 Anion Gap Estim Creat Clear Calc Estimated GFR POC Glucose 221 H 262 H Fasting Glucose Calcium Total Bilirubin AST ALT Alkaline Phosphatase Total Protein Albumin 04/06/21 04/06/21 04/06/21 05:48 07:19 11:25 MCV MCH MCHC RDW Plt Count MPV Immature Gran % (Auto) Neut % (Auto) Lymph % (Auto) [place] % (Auto) Eos % (Auto) Baso % (Auto) Lymph # (Auto) [place] # (Auto) Eos # (Auto) Baso # (Auto) Abs Immat Gran (auto) Absolute Neuts (auto) Absolute Nucleated RBC Nucleated RBC % (auto) Anion Gap 15 Estim Creat Clear Calc 38.9 Estimated GFR 42 POC Glucose 216 H 247 H Fasting Glucose 240 H Calcium 10.3 H D Total Bilirubin 0.7 AST 39 H ALT 52 H Alkaline Phosphatase 90 Total Protein 7.8 Albumin 4.2 Assessment and Plan (1) Acute respiratory failure with hypoxia: Status: Acute (2) COPD exacerbation: Status: Acute Assessment and Plan: 80-year-old female with past medical history of COPD, CHF, AFib presents to the hospital with complaints of shortness of breath and hypoxia. Some improvement with Lasix drip; decreased 5 milligrams/hour this a.m. continues to complain of exertional shortness of breath with productive cough 1. Decompensated CHF Lasix drip increased to 10 milligrams/hour yesterday with notable improvement overnight. Creatinine stable at 1.23 No further chest pain; Cardiology to do low-level stress test in a.m. to rule out acute pathology. No changes in overall treatment plan pending forthcoming data 2. COPD exacerbation Query component of post COVID syndrome. Would continue with steroids and DuoNeb therapies. Titrate O2 to maintain sats above 92%. Notes improvement with steroids with continued the same. Sleep improved with CPAP 3. Persistent atrial fibrillation Rate control adequate; continue telemetry. Continue Eliquis/calcium channel [place] as ordered. Cardiology to determine imaging in the morning 4. Hypertension Continue lisinopril, diltiazem, Aldactone 5. Hypothyroidism Continue levothyroxine; check TSH in a.m. 6. Type 2 DM Restart glipizide at 5 mg daily Cover with sliding scale; adjust as indicated DVT prophylaxis: [place] Quality Stroke Does the patient have a stroke diagnosis?: No VTE Prior VTE?: No VTE Risk Level:: Medical - moderate - high VTE Device Contraindication: Treatment Not Indicated VTE Drug Contraindication: N/A - Med Ordered
[2021-04-06 16:02] LABS: Glucose, Whole Blood 279 mg/dL (60-115)
[2021-04-06 20:49] LABS: Glucose, Whole Blood 280 mg/dL (60-115)
[2021-04-06] MEDS: Gabapentin 300 MG CAPSULE PO (22:23)
[2021-04-07] VITALS (14 sets, daily range): BP systolic 103–149; BP diastolic 51–84; PULSE 85–103; RESP 18–19; TEMP 36.1–37.1; O2SAT 90–97
[2021-04-07] MEDS: Levothyroxine Sodium 50 MCG TABLET PO (06:01)
[2021-04-07] MEDS: Omeprazole 20 MG CAPSULE.DR PO (06:01)
[2021-04-07 06:42] LABS: MANUAL DIFF FLAG NO
[2021-04-07] MEDS: Furosemide 200 MG in 0.9 % Sodium Chloride 80 ML IVCONT (06:48)
[2021-04-07 06:55] LABS: Basophils Percent Auto 0.1 % (0-2); Hematocrit 43.5 % (37.0-47.0); Hemoglobin 13.8 g/dl (12.0-16.0); Imm Gran Abs Auto 0.09 X10*3/uL (0.00-0.03); Imm Gran Pct Auto 0.9 % (0.0-0.4); Lymphocytes Absolute Auto 0.8 X10*3/uL (1.2-4.9); Lymphocytes Percent Auto 8.2 % (20-40); Mean Corpuscular HGB Conc 31.7 g/dl (31.0-35.0); Mean Corpuscular Hemoglobin 30.7 pg (27.0-33.0); Mean Corpuscular Volume 96.9 fL (80.0-98.0); Mean Platelet Volume 11.7 fL (9.4-12.3); Monocytes Absolute Auto 0.4 X10*3/uL (0.1-1.2); Monocytes Percent Auto 4.3 % (2-11); NRBC Pct Auto 0.2 /100WBC (0.0-0.2); Neutrophils Absolute Auto 8.6 x10*3/uL (2.0-8.3); Neutrophils Percent Auto 86.5 % (45-73); Platelet Count 231 X10*3/uL (160-400); Red Blood Count 4.49 X10*6/uL (4.20-5.50); Red Cell Distribution Width 14.6 % (11.0-16.0); White Blood Count 9.9 X10*3/uL (4.8-10.8)
[2021-04-07 07:12] LABS: Alanine Aminotransferase 50 U/L (0-31); Alkaline Phosphatase 87 U/L (39-117); Anion Gap 16 (12-20); Aspartate Amino Transferase 27 U/L (5-31); Bilirubin Total 0.6 mg/dL (0.0-1.0); Blood Urea Nitrogen 77 mg/dL (9-16); Calcium 9.4 mg/dL (8.4-10.2); Carbon Dioxide 38 mmol/L (22-29); Chloride 89 mmol/L (96-108); Creatinine Clr Calc Pharmacy 34.9; Estimated Glomerular Filt Rate 37; Glucose Fasting 285 mg/dL (60-99); Potassium 4.9 mmol/L (3.3-5.1); Sodium 138 mmol/L (135-145); Total Protein 7.5 g/dL (6.5-8.0)
[2021-04-07] MEDS: Albuterol/Iprat 2.5/0.5MG 3 ML AMPUL.NEB INHALE ×3 (07:35→15:05)
[2021-04-07] MEDS: Fluticasone/Vilanterol 200/25 BLST.W.DEV 1 PUFF INHALE (07:35)
[2021-04-07 07:40] LABS: Glucose, Whole Blood 256 mg/dL (60-115)
[2021-04-07] MEDS: Ascorbic Acid 500 MG TABLET PO (09:36)
[2021-04-07] MEDS: Azithromycin 500 MG TABLET PO (09:36)
[2021-04-07] MEDS: Folic Acid 1 MG TABLET PO (09:36)
[2021-04-07] MEDS: Spironolactone 25 MG TABLET PO (09:36)
[2021-04-07] MEDS: Apixaban 5 MG TABLET PO ×2 (09:36→21:22)
[2021-04-07] MEDS: dilTIAZem HCL CD 240 MG CAP.ER.DEG PO (09:37)
[2021-04-07] MEDS: lisinopriL 40 MG TABLET PO (09:37)
[2021-04-07] MEDS: Sertraline HCL 50 MG TABLET PO (09:37)
[2021-04-07] MEDS: 0.9 % Sodium Chloride Flush 3 ML SYRINGE IVFLUSH ×2 (09:38→18:15)
[2021-04-07] MEDS: Insulin Lispro 100 UNIT/ML 3 ML VIAL SUBCUT ×4 (09:38→21:22)
[2021-04-07] MEDS: cefTRIAXone sodium 1 GM in 0.9 % Sodium Chloride 50 ML IV (09:45)
--- NOTE | 2021-04-07 09:48 | PC.NURSE ---
Elen thornton by the request of Dr. Mcghee. will change to PO
[2021-04-07 09:49] LABS: B Type Natriuretic Peptide 102 pg/mL (<100)
[2021-04-07 10:23] LABS: Procalcitonin 0.03 ng/mL
[2021-04-07 10:36] LABS: Thyroid Stimulating Hormone 2.37 uIU/mL (0.32-4.0)
--- NOTE | 2021-04-07 11:09 | PM.PNCARD ---
Subjective Subjective Date of Service: 04/07/21 Principal diagnosis: Respiratory failure, congestive heart failure Interval history: Patient states that she is still short of breath with activity but mostly doing okay when resting. Denies any chest pains. Review of Systems Review of Systems Yes all other systems are reviewed and are negative Cardiovascular: Reports as per HPI, Reports no additional cardiovascular complaints, Denies acrocyanosis, Denies cool extremities, Denies painful fingertips, Denies chest pain, Denies chest pain at rest, Denies diaphoresis, Denies syncope, Denies irregular heart rhythm, Denies claudication, Denies leg edema, Denies lightheadedness, Denies palpitations and Reports dyspnea Respiratory: Reports dyspnea Denies syncope Endocrine: Denies palpitations Physical Exam Vital Signs: Last Vital Signs Temp 98.1 F 04/07/21 07:15 Pulse 102 H 04/07/21 09:37 Resp 18 04/07/21 07:15 BP 118/84 04/07/21 09:37 Pulse Ox 95 04/07/21 07:15 Oxygen Flow Rate 2 04/02/21 14:46 Body Mass Index 40.2 Const General: cooperative and no acute distress [facility] Other: Unremarkable Neck Neck: Yes normal visual inspection Chest Chest palpation & inspection: normal inspection of the chest Resp Auscultation: no crackles, wheezes and diminished lung sounds Cardio Jugular venous distension: no JVD Palpation: normal PMI Heart sounds: S1 normal heart sound present, S2 normal heart sound present, no gallops, no murmurs and no rubs GI Palpation (GI): Soft to palpation Back/Spine/Pelvis Other: unremarkable Skin General skin exam: no rashes or lesions noted Neuro Cranial nerves: Yes Other cranial nerve findings present Extrem General: Yes pedal edema (trace) Psych Mental Status: other Results Labs and Meds Result diagrams: 04/07/21 06:21 04/07/21 06:21 Lab results: Laboratory Results - last 24 hr 04/06/21 04/06/21 04/06/21 11:25 15:31 20:36 WBC RBC Hgb Hct MCV MCH MCHC RDW Plt Count MPV Immature Gran % (Auto) Neut % (Auto) Lymph % (Auto) [place] % (Auto) Eos % (Auto) Baso % (Auto) Lymph # (Auto) [place] # (Auto) Eos # (Auto) Baso # (Auto) Abs Immat Gran (auto) Absolute Neuts (auto) Absolute Nucleated RBC Nucleated RBC % (auto) Sodium Potassium Chloride Carbon Dioxide Anion Gap BUN Creatinine Estim Creat Clear Calc Estimated GFR POC Glucose 247 H 279 H 280 H Fasting Glucose Calcium Total Bilirubin AST ALT Alkaline Phosphatase B-Natriuretic Peptide Total Protein Albumin Procalcitonin TSH 04/07/21 04/07/21 04/07/21 06:21 06:21 06:21 WBC 9.9 RBC 4.49 Hgb 13.8 Hct 43.5 MCV 96.9 MCH 30.7 MCHC 31.7 RDW 14.6 Plt Count 231 MPV 11.7 Immature Gran % (Auto) 0.9 H Neut % (Auto) 86.5 H Lymph % (Auto) 8.2 L [place] % (Auto) 4.3 Eos % (Auto) 0.0 Baso % (Auto) 0.1 Lymph # (Auto) 0.8 L [place] # (Auto) 0.4 Eos # (Auto) 0.0 Baso # (Auto) 0.0 Abs Immat Gran (auto) 0.09 H Absolute Neuts (auto) 8.6 H Absolute Nucleated RBC 0.020 H Nucleated RBC % (auto) 0.2 Sodium 138 Potassium 4.9 Chloride 89 L Carbon Dioxide 38 H Anion Gap 16 BUN 77 H Creatinine 1.37 Estim Creat Clear Calc 34.9 Estimated GFR 37 POC Glucose Fasting Glucose 285 H Calcium 9.4 D Total Bilirubin 0.6 AST 27 ALT 50 H Alkaline Phosphatase 87 B-Natriuretic Peptide Total Protein 7.5 Albumin 4.0 Procalcitonin 0.03 TSH 2.37 04/07/21 04/07/21 06:21 07:15 WBC RBC Hgb Hct MCV MCH MCHC RDW Plt Count MPV Immature Gran % (Auto) Neut % (Auto) Lymph % (Auto) [place] % (Auto) Eos % (Auto) Baso % (Auto) Lymph # (Auto) [place] # (Auto) Eos # (Auto) Baso # (Auto) Abs Immat Gran (auto) Absolute Neuts (auto) Absolute Nucleated RBC Nucleated RBC % (auto) Sodium Potassium Chloride Carbon Dioxide Anion Gap BUN Creatinine Estim Creat Clear Calc Estimated GFR POC Glucose 256 H Fasting Glucose Calcium Total Bilirubin AST ALT Alkaline Phosphatase B-Natriuretic Peptide 102 H Total Protein Albumin Procalcitonin TSH Progress Note: A&P Assessment and plan (1) Acute on chronic diastolic (congestive) heart failure: Status: Acute (2) Persistent atrial fibrillation: Status: Acute (3) Acute respiratory failure with hypoxia: Status: Acute Assessment and Plan: In the recent echocardiogram, LV function hyperdynamic; severe left ventricle hypertrophy with severe left atrial dilatation possibly mild mitral stenosis from annular calcification. There is mild ascending aortic dilatation. On telemetry, atrial fibrillation with slightly increased rate. Clinically she still sounds quite wheezy. Unclear how much of this is pulmonary versus cardiac. She is currently on Lasix drip. However, BUN is going up and there is not much peripheral edema. Negative balance -3.5L since admission. May stop lasix drip today. Will need also optimize her pulmonary status. Originally scheduled for a stress test today; however she is on extremely busy and additionally daughter also not inclined to proceed. Hence, postpone for now and stabilize respiratory status. Discussed plan at length with daughter, Soo. Fall Risk Details Current Medications: Current Medications Acetaminophen (Acetaminophen 325 Mg Tablet) 650 mg PO Q6H PRN PRN Reason: Pain, Mild (Pain Scale 1-3) Last Admin: 04/05/21 18:41 Dose: 650 mg Documented by: Albuterol Sulfate (Albuterol Sulfate (0.042%) 1.25 Mg/3 Ml Vial.Neb) 0.63 mg INHALE Q4H PRN PRN Reason: shortness of breath or wheezing Albuterol/Ipratropium (Albuterol/Iprat 2.5/0.5mg 3 Ml Ampul.Neb) 3 ml INHALE RQ4H WHILE AWAKE [facility] Last Admin: 04/07/21 07:35 Dose: 3 ml Documented by: Albuterol/Ipratropium (Albuterol/Iprat 2.5/0.5mg 3 Ml Ampul.Neb) 3 ml INHALE RQ4H PRN PRN Reason: Shortness of Breath/Wheezing Last Admin: 04/06/21 07:44 Dose: 3 ml Documented by: Apixaban (Apixaban 5 Mg Tablet) 5 mg PO BID [facility] Last Admin: 04/07/21 09:36 Dose: 5 mg Documented by: Artificial Tears (Artificial Tears 15 Ml Drops) 2 drop EYE-BOTH Q4H PRN PRN Reason: Dry Eyes Ascorbic Acid (Ascorbic Acid 500 Mg Tablet) 500 mg PO DAILY [facility] Last Admin: 04/07/21 09:36 Dose: 500 mg Documented by: Azithromycin (Azithromycin 500 Mg Tablet) 500 mg PO Q24H [facility] Stop: 04/08/21 09:59 Last Admin: 04/07/21 09:36 Dose: 500 mg Documented by: Bumetanide (Bumetanide 1 Mg Tablet) 2 mg PO BID@0800,1700 [facility]; Protocol Dextrose (Dextrose 50 % 25 Gm/50 Ml Vial) 25 gm IVPUSH Q15M PRN; Protocol PRN Reason: per Hypoglycemia Standing Ord. Diltiazem HCl (Diltiazem Hcl Cd 240 Mg Cap.Er.Deg) 240 mg PO DAILY [facility]; Protocol Last Admin: 04/07/21 09:37 Dose: 240 mg Documented by: Docusate Sodium (Docusate Sodium 100 Mg Capsule) 100 mg PO DAILY PRN PRN Reason: Constipation Fluticasone/Vilanterol (Fluticasone/Vilanterol 200/25 Blst.W.Dev) 1 puff INHALE RDAILY [facility] Last Admin: 04/07/21 07:35 Dose: 1 puff Documented by: Folic Acid (Folic Acid 1 Mg Tablet) 1 mg PO DAILY [facility] Last Admin: 04/07/21 09:36 Dose: 1 mg Documented by: Gabapentin (Gabapentin 300 Mg Capsule) 300 mg PO BEDTIME [facility] Last Admin: 04/06/21 22:23 Dose: 300 mg Documented by: Glucose (Glucose Gel 15 Gm Gel..Gram.) 15 gm PO Q15M PRN; Protocol PRN Reason: per Hypoglycemia Standing Ord. Ceftriaxone Sodium 1 gm/ (Sodium Chloride) 50 mls @ 100 mls/hr IV Q24H [facility] Last Infusion: 04/07/21 10:15 Dose: Infused Documented by: Insulin Human Lispro (Insulin Lispro 100 Unit/Ml 3 Ml Vial) 0 unit SUBCUT QIDACHS [facility]; Protocol Last Admin: 04/07/21 09:38 Dose: 6 unit Documented by: Levothyroxine Sodium (Levothyroxine Sodium 50 Mcg Tablet) 50 mcg PO DAILY@0630 [facility] Last Admin: 04/07/21 06:01 Dose: 50 mcg Documented by: Lisinopril (Lisinopril 40 Mg Tablet) 40 mg PO DAILY [facility]; Protocol Last Admin: 04/07/21 09:37 Dose: 40 mg Documented by: Meclizine HCl (Meclizine Hcl 25 Mg Tablet) 25 mg PO DAILY PRN PRN Reason: dizziness Methylprednisolone Sodium Succinate (Methylprednisolone Sod Succ 40 Mg/Ml Vial) 40 mg IVPUSH Q12H [facility] Last Admin: 04/06/21 22:26 Dose: 40 mg Documented by: Naproxen (Naproxen 500 Mg Tablet) 500 mg PO BID PRN PRN Reason: Pain Omeprazole (Omeprazole 20 Mg Capsule.Dr) 20 mg PO DAILY@0600 [facility] Last Admin: 04/07/21 06:01 Dose: 20 mg Documented by: Ondansetron HCl (Ondansetron Hcl 4 Mg/2 Ml Vial) 4 mg IVPUSH Q8H PRN PRN Reason: Nausea and Vomiting Pharmacy Consult (Consult Rx Perform Med Rec) 1 each MISCELLANE ONCE PRN PRN Reason: Consult order Sertraline HCl (Sertraline Hcl 50 Mg Tablet) 50 mg PO DAILY [facility] Last Admin: 04/07/21 09:37 Dose: 50 mg Documented by: Sodium Chloride (0.9 % Sodium Chloride Flush 3 Ml Syringe) 3 ml IVFLUSH QSHIFT [facility] Last Admin: 04/07/21 09:38 Dose: 3 ml Documented by: Spironolactone (Spironolactone 25 Mg Tablet) 25 mg PO DAILY [facility]; Protocol Last Admin: 04/07/21 09:36 Dose: 25 mg Documented by: Sulfasalazine (Sulfasalazine 500 Mg Tablet) 500 mg PO DAILY@1300 [facility] Last Admin: 04/06/21 12:06 Dose: 500 mg Documented by: Tiotropium [place] (Tiotropium [place] 18 Mcg Cap.W.Dev) 1 puff INHALE RDAILY [facility] Last Admin: 04/07/21 07:35 Dose: 1 puff Documented by: Time Spent With Patient Time: Total time spent is greater than 50% in coordination of care (as documented) at patient's floor/unit and/or counseling patient: Time with patient: 15 - 24 minutes Progress Note: Quality Stroke Does the patient have a stroke diagnosis?: No Procedures Date of Service Date of Service: 04/07/21
[2021-04-07 11:19] LABS: Glucose, Whole Blood 304 mg/dL (60-115)
[2021-04-07] MEDS: Bumetanide 1 MG TABLET 2 MG PO ×2 (11:35→18:15)
--- NOTE | 2021-04-07 11:55 | PC.NURSE ---
to NON stress portion of stress test via WC. 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
[2021-04-07] MEDS: sulfaSALAzine 500 MG TABLET PO (12:24)
--- NOTE | 2021-04-07 12:27 | P.PNIM_ITS ---
Subjective Subjective Date of Service: 04/07/21 Interval History: Monegasque-Haitian interpretation per daughter. Patient feels less short of breath and denies chest pain. She declines stress t esting. Productive cough improved. Less swollen. Overal negative 3.6L this admission. Review of Systems Review of Systems: Yes all other systems are reviewed and are negative Physical Exam Vital Signs: Vital Signs: Last Vital Signs Temp 98.3 F 04/07/21 11:09 Pulse 102 H 04/07/21 11:32 Resp 18 04/07/21 11:09 BP 135/74 04/07/21 11:09 Pulse Ox 92 04/07/21 11:09 Oxygen Flow Rate 2 04/02/21 14:46 Body Mass Index 40.2 Gen: in no acute distress on 1.5L NC, but dyspneic with minimal exertion HEENT: sclera anicteric, moist mucus membranes Neck: supple, no JVD Lungs: diminished bilaterally, expiratory rhonchi Heart: irregularly irregular, no murmurs Abd: soft, non-tender, non-distended, obese Ext: 1+ bilateral edema, stockings in place Skin: warm/well-perfused Neuro: alert and oriented x3, no focal findings Psych: appropriate affect Objective Data Active Medications Acetaminophen (Acetaminophen 325 Mg Tablet) 650 mg PO Q6H PRN PRN Reason: Pain, Mild (Pain Scale 1-3) Last Admin: 04/05/21 18:41 Dose: 650 mg Documented by: DAWIT Albuterol Sulfate (Albuterol Sulfate (0.042%) 1.25 Mg/3 Ml Vial.Neb) 0.63 mg INHALE Q4H PRN PRN Reason: shortness of breath or wheezing Albuterol/Ipratropium (Albuterol/Iprat 2.5/0.5mg 3 Ml Ampul.Neb) 3 ml INHALE RQ4H WHILE AWAKE [facility] Last Admin: 04/07/21 11:10 Dose: 3 ml Documented by: EMILIANA Albuterol/Ipratropium (Albuterol/Iprat 2.5/0.5mg 3 Ml Ampul.Neb) 3 ml INHALE RQ4H PRN PRN Reason: Shortness of Breath/Wheezing Last Admin: 04/06/21 07:44 Dose: 3 ml Documented by: FRNAKLIN Apixaban (Apixaban 5 Mg Tablet) 5 mg PO BID [facility] Last Admin: 04/07/21 09:36 Dose: 5 mg Documented by: RENEE Artificial Tears (Artificial Tears 15 Ml Drops) 2 drop EYE-BOTH Q4H PRN PRN Reason: Dry Eyes Ascorbic Acid (Ascorbic Acid 500 Mg Tablet) 500 mg PO DAILY [facility] Last Admin: 04/07/21 09:36 Dose: 500 mg Documented by: RENEE Azithromycin (Azithromycin 500 Mg Tablet) 500 mg PO Q24H [facility] Stop: 04/08/21 09:59 Last Admin: 04/07/21 09:36 Dose: 500 mg Documented by: RENEE Bumetanide (Bumetanide 1 Mg Tablet) 2 mg PO BID@0800,1700 [facility]; Protocol Last Admin: 04/07/21 11:35 Dose: 2 mg Documented by: RENEE Dextrose (Dextrose 50 % 25 Gm/50 Ml Vial) 25 gm IVPUSH Q15M PRN; Protocol PRN Reason: per Hypoglycemia Standing Ord. Diltiazem HCl (Diltiazem Hcl Cd 240 Mg Cap.Er.Deg) 240 mg PO DAILY [facility]; Protocol Last Admin: 04/07/21 09:37 Dose: 240 mg Documented by: RENEE Docusate Sodium (Docusate Sodium 100 Mg Capsule) 100 mg PO DAILY PRN PRN Reason: Constipation Fluticasone/Vilanterol (Fluticasone/Vilanterol 200/25 Blst.W.Dev) 1 puff INHALE RDAILY [facility] Last Admin: 04/07/21 07:35 Dose: 1 puff Documented by: EMILIANA Folic Acid (Folic Acid 1 Mg Tablet) 1 mg PO DAILY [facility] Last Admin: 04/07/21 09:36 Dose: 1 mg Documented by: RENEE Gabapentin (Gabapentin 300 Mg Capsule) 300 mg PO BEDTIME [facility] Last Admin: 04/06/21 22:23 Dose: 300 mg Documented by: ANTOIC Glucose (Glucose Gel 15 Gm Gel..Gram.) 15 gm PO Q15M PRN; Protocol PRN Reason: per Hypoglycemia Standing Ord. Ceftriaxone Sodium 1 gm/ (Sodium Chloride) 50 mls @ 100 mls/hr IV Q24H [facility] Last Infusion: 04/07/21 10:15 Dose: 0 mls/hr Documented by: RENEE Insulin Human Lispro (Insulin Lispro 100 Unit/Ml 3 Ml Vial) 0 unit SUBCUT QIDACHS [facility]; Protocol Last Admin: 04/07/21 11:35 Dose: 8 unit Documented by: RENEE Levothyroxine Sodium (Levothyroxine Sodium 50 Mcg Tablet) 50 mcg PO DAILY@0630 [facility] Last Admin: 04/07/21 06:01 Dose: 50 mcg Documented by: ANTCHANDRAKANT Lisinopril (Lisinopril 40 Mg Tablet) 40 mg PO DAILY [facility]; Protocol Last Admin: 04/07/21 09:37 Dose: 40 mg Documented by: RNEEE Meclizine HCl (Meclizine Hcl 25 Mg Tablet) 25 mg PO DAILY PRN PRN Reason: dizziness Methylprednisolone Sodium Succinate (Methylprednisolone Sod Succ 40 Mg/Ml Vial) 40 mg IVPUSH Q24H [facility] Naproxen (Naproxen 500 Mg Tablet) 500 mg PO BID PRN PRN Reason: Pain Omeprazole (Omeprazole 20 Mg Capsule.) 20 mg PO DAILY@0600 [facility] Last Admin: 04/07/21 06:01 Dose: 20 mg Documented by: PETER Ondansetron HCl (Ondansetron Hcl 4 Mg/2 Ml Vial) 4 mg IVPUSH Q8H PRN PRN Reason: Nausea and Vomiting Pharmacy Consult (Consult Rx Perform Med Rec) 1 each MISCELLANE ONCE PRN PRN Reason: Consult order Sertraline HCl (Sertraline Hcl 50 Mg Tablet) 50 mg PO DAILY [facility] Last Admin: 04/07/21 09:37 Dose: 50 mg Documented by: RENEE Sodium Chloride (0.9 % Sodium Chloride Flush 3 Ml Syringe) 3 ml IVFLUSH QSHIFT [facility] Last Admin: 04/07/21 09:38 Dose: 3 ml Documented by: RENEE Spironolactone (Spironolactone 25 Mg Tablet) 25 mg PO DAILY [facility]; Protocol Last Admin: 04/07/21 09:36 Dose: 25 mg Documented by: RENEE Sulfasalazine (Sulfasalazine 500 Mg Tablet) 500 mg PO DAILY@1300 [facility] Last Admin: 04/07/21 12:24 Dose: 500 mg Documented by: HO.BREVELH Tiotropium [place] (Tiotropium [place] 18 Mcg Cap.W.Dev) 1 puff INHALE RDAILY [facility] Last Admin: 04/07/21 07:35 Dose: 1 puff Documented by: EMILIANA Labs CBC & Chem 7: 04/07/21 06:21 04/07/21 06:21 Labs: Laboratory Results - last 24 hr 04/06/21 04/06/21 04/07/21 15:31 20:36 06:21 MCV 96.9 MCH 30.7 MCHC 31.7 RDW 14.6 Plt Count 231 MPV 11.7 Immature Gran % (Auto) 0.9 H Neut % (Auto) 86.5 H Lymph % (Auto) 8.2 L [place] % (Auto) 4.3 Eos % (Auto) 0.0 Baso % (Auto) 0.1 Lymph # (Auto) 0.8 L [place] # (Auto) 0.4 Eos # (Auto) 0.0 Baso # (Auto) 0.0 Abs Immat Gran (auto) 0.09 H Absolute Neuts (auto) 8.6 H Absolute Nucleated RBC 0.020 H Nucleated RBC % (auto) 0.2 Anion Gap Estim Creat Clear Calc Estimated GFR POC Glucose 279 H 280 H Fasting Glucose Calcium Total Bilirubin AST ALT Alkaline Phosphatase B-Natriuretic Peptide Total Protein Albumin Procalcitonin TSH 04/07/21 04/07/21 04/07/21 06:21 06:21 06:21 MCV MCH MCHC RDW Plt Count MPV Immature Gran % (Auto) Neut % (Auto) Lymph % (Auto) [place] % (Auto) Eos % (Auto) Baso % (Auto) Lymph # (Auto) [place] # (Auto) Eos # (Auto) Baso # (Auto) Abs Immat Gran (auto) Absolute Neuts (auto) Absolute Nucleated RBC Nucleated RBC % (auto) Anion Gap 16 Estim Creat Clear Calc 34.9 Estimated GFR 37 POC Glucose Fasting Glucose 285 H Calcium 9.4 D Total Bilirubin 0.6 AST 27 ALT 50 H Alkaline Phosphatase 87 B-Natriuretic Peptide 102 H Total Protein 7.5 Albumin 4.0 Procalcitonin 0.03 TSH 2.37 04/07/21 04/07/21 07:15 11:11 MCV MCH MCHC RDW Plt Count MPV Immature Gran % (Auto) Neut % (Auto) Lymph % (Auto) [place] % (Auto) Eos % (Auto) Baso % (Auto) Lymph # (Auto) [place] # (Auto) Eos # (Auto) Baso # (Auto) Abs Immat Gran (auto) Absolute Neuts (auto) Absolute Nucleated RBC Nucleated RBC % (auto) Anion Gap Estim Creat Clear Calc Estimated GFR POC Glucose 256 H 304 H Fasting Glucose Calcium Total Bilirubin AST ALT Alkaline Phosphatase B-Natriuretic Peptide Total Protein Albumin Procalcitonin TSH Assessment and Plan (1) Acute respiratory failure with hypoxia: Status: Acute (2) COPD exacerbation: Status: Acute Assessment and Plan: hospital d#6 80yo F with COPD/asthma, HFpEF, AF, LILY, recent COVID-19 infection presented with dyspnea admitted for hypoxia due to CHF + COPD exacerbations # ADHF/[id number] HFpEF - appears euvolemic now and BUN/Cr creeping up; will change to PO bumetanide - refuses stress test and per Cardiology would not perform currently anyways given her tenuous respiratory status - continue spironolactone + lisinopril # COPD/asthma exacerbation - wean IV steroids, continue tiotropium + Breo + prn nebs # LILY - continue CPAP # pAF - continue apixaban + diltiazem # HTN - continue spironolactone + bumetanide + lisinopril + diltiazem # RA - continue sulfasalazine # hypothyroidism - continue LT4 # DM2 - correction-dose lispro # mood disorder - continue sertraline # VTE ppx - apixaban # dispo - STR per PT Quality Stroke Does the patient have a stroke diagnosis?: No VTE Prior VTE?: No VTE Risk Level:: Medical - moderate - high VTE Device Contraindication: Treatment Not Indicated VTE Drug Contraindication: N/A - Med Ordered
[2021-04-07 16:04] LABS: Glucose, Whole Blood 198 mg/dL (60-115)
[2021-04-07 20:06] LABS: Glucose, Whole Blood 266 mg/dL (60-115)
[2021-04-07] MEDS: Gabapentin 300 MG CAPSULE PO (21:22)
[2021-04-07] MEDS: methylPREDNISolone Sod Succ 40 MG/ML VIAL IVPUSH (21:22)
[2021-04-08] VITALS (17 sets, daily range): BP systolic 113–135; BP diastolic 58–79; PULSE 82–105; RESP 16–22; TEMP 36.2–37; O2SAT 92–95
[2021-04-08] MEDS: 0.9 % Sodium Chloride Flush 3 ML SYRINGE IVFLUSH ×4 (00:44→21:00)
[2021-04-08] MEDS: Levothyroxine Sodium 50 MCG TABLET PO (06:38)
[2021-04-08] MEDS: Omeprazole 20 MG CAPSULE.DR PO (06:38)
[2021-04-08 07:10] LABS: MANUAL DIFF FLAG NO
[2021-04-08 07:15] LABS: Basophils Percent Auto 0.1 % (0-2); Hematocrit 45.3 % (37.0-47.0); Hemoglobin 14.3 g/dl (12.0-16.0); Imm Gran Abs Auto 0.12 X10*3/uL (0.00-0.03); Imm Gran Pct Auto 1.3 % (0.0-0.4); Lymphocytes Absolute Auto 1.1 X10*3/uL (1.2-4.9); Lymphocytes Percent Auto 12.6 % (20-40); Mean Corpuscular HGB Conc 31.6 g/dl (31.0-35.0); Mean Corpuscular Hemoglobin 30.5 pg (27.0-33.0); Mean Corpuscular Volume 96.6 fL (80.0-98.0); Mean Platelet Volume 11.9 fL (9.4-12.3); Monocytes Absolute Auto 0.4 X10*3/uL (0.1-1.2); Monocytes Percent Auto 4.2 % (2-11); Neutrophils Absolute Auto 7.4 x10*3/uL (2.0-8.3); Neutrophils Percent Auto 81.8 % (45-73); Platelet Count 221 X10*3/uL (160-400); Red Blood Count 4.69 X10*6/uL (4.20-5.50); Red Cell Distribution Width 14.7 % (11.0-16.0)
[2021-04-08 07:33] LABS: B Type Natriuretic Peptide 82 pg/mL (<100)
[2021-04-08 07:38] LABS: Glucose, Whole Blood 265 mg/dL (60-115)
[2021-04-08] MEDS: Albuterol/Iprat 2.5/0.5MG 3 ML AMPUL.NEB INHALE ×4 (07:41→20:09)
[2021-04-08] MEDS: Fluticasone/Vilanterol 200/25 BLST.W.DEV 1 PUFF INHALE (07:42)
[2021-04-08] MEDS: Insulin Lispro 100 UNIT/ML 3 ML VIAL SUBCUT ×4 (08:04→21:00)
[2021-04-08] MEDS: Spironolactone 25 MG TABLET PO (08:16)
[2021-04-08] MEDS: Sertraline HCL 50 MG TABLET PO (08:17)
[2021-04-08] MEDS: Ascorbic Acid 500 MG TABLET PO (08:18)
[2021-04-08] MEDS: Bumetanide 1 MG TABLET 2 MG PO (08:20)
[2021-04-08] MEDS: lisinopriL 40 MG TABLET PO (08:20)
[2021-04-08] MEDS: Folic Acid 1 MG TABLET PO (08:22)
[2021-04-08] MEDS: dilTIAZem HCL CD 240 MG CAP.ER.DEG PO (08:22)
[2021-04-08] MEDS: Apixaban 5 MG TABLET PO ×2 (08:23→20:59)
[2021-04-08 09:02] LABS: Alanine Aminotransferase 51 U/L (0-31); Albumin Level 3.9 g/dL (3.5-5.0); Alkaline Phosphatase 84 U/L (39-117); Anion Gap 13 (12-20); Aspartate Amino Transferase 25 U/L (5-31); Bilirubin Total 0.6 mg/dL (0.0-1.0); Blood Urea Nitrogen 86 mg/dL (9-16); Calcium 9.6 mg/dL (8.4-10.2); Chloride 89 mmol/L (96-108); Creatinine Clr Calc Pharmacy 32.6; Estimated Glomerular Filt Rate 34; Glucose Fasting 294 mg/dL (60-99); Magnesium 2.7 mg/dL (1.6-2.6); Potassium 5.8 mmol/L (3.3-5.1); Sodium 137 mmol/L (135-145); Total Protein 7.2 g/dL (6.5-8.0)
--- NOTE | 2021-04-08 10:46 | P.PNCA_ITS ---
Subjective Subjective Date of Service: 04/08/21 Principal diagnosis: Respiratory failure, congestive heart failure Interval history: Feels about the same. Review of Systems Review of Systems Yes all other systems are reviewed and are negative Cardiovascular: Reports as per HPI, Reports no additional cardiovascular complaints, Denies acrocyanosis, Denies cool extremities, Denies painful fingertips, Denies chest pain, Denies chest pain at rest, Denies diaphoresis, Denies syncope, Denies irregular heart rhythm, Denies claudication, Denies leg edema, Denies lightheadedness, Denies palpitations and Reports dyspnea Respiratory: Reports dyspnea Denies syncope Endocrine: Denies palpitations Physical Exam Vital Signs: Last Vital Signs Temp 97.4 F 04/08/21 07:07 Pulse 90 04/08/21 08:22 Resp 16 04/08/21 07:07 BP 123/70 04/08/21 08:22 Pulse Ox 94 04/08/21 07:07 Oxygen Flow Rate 2 04/02/21 14:46 Body Mass Index 40.2 Const General: cooperative and no acute distress [facility] Other: Unremarkable Neck Neck: Yes normal visual inspection Chest Chest palpation & inspection: normal inspection of the chest Resp Auscultation: no crackles, wheezes and diminished lung sounds Cardio Jugular venous distension: no JVD Palpation: normal PMI Heart sounds: S1 normal heart sound present, S2 normal heart sound present, no gallops, no murmurs and no rubs GI Palpation (GI): Soft to palpation Back/Spine/Pelvis Other: unremarkable Skin General skin exam: no rashes or lesions noted Neuro Cranial nerves: Yes Other cranial nerve findings present Extrem General: Yes pedal edema (trace) Psych Mental Status: other Results Labs and Meds Result diagrams: 04/08/21 06:33 04/08/21 06:33 Lab results: Laboratory Results - last 24 hr 04/07/21 04/07/21 04/07/21 11:11 15:26 20:00 WBC RBC Hgb Hct MCV MCH MCHC RDW Plt Count MPV Immature Gran % (Auto) Neut % (Auto) Lymph % (Auto) Roberts % (Auto) Eos % (Auto) Baso % (Auto) Lymph # (Auto) Roberts # (Auto) Eos # (Auto) Baso # (Auto) Abs Immat Gran (auto) Absolute Neuts (auto) Absolute Nucleated RBC Nucleated RBC % (auto) Sodium Potassium Chloride Carbon Dioxide Anion Gap BUN Creatinine Estim Creat Clear Calc Estimated GFR POC Glucose 304 H 198 H 266 H Random Glucose Fasting Glucose Calcium Magnesium Total Bilirubin AST ALT Alkaline Phosphatase B-Natriuretic Peptide Total Protein Albumin 04/08/21 04/08/21 04/08/21 06:33 06:33 06:33 WBC 9.0 RBC 4.69 Hgb 14.3 Hct 45.3 MCV 96.6 MCH 30.5 MCHC 31.6 RDW 14.7 Plt Count 221 MPV 11.9 Immature Gran % (Auto) 1.3 H Neut % (Auto) 81.8 H Lymph % (Auto) 12.6 L Roberts % (Auto) 4.2 Eos % (Auto) 0.0 Baso % (Auto) 0.1 Lymph # (Auto) 1.1 L Roberts # (Auto) 0.4 Eos # (Auto) 0.0 Baso # (Auto) 0.0 Abs Immat Gran (auto) 0.12 H Absolute Neuts (auto) 7.4 Absolute Nucleated RBC 0.000 Nucleated RBC % (auto) 0.0 Sodium 137 Potassium 5.8 H Chloride 89 L Carbon Dioxide 41 H* Anion Gap 13 BUN 86 H* Creatinine 1.47 H Estim Creat Clear Calc 32.6 Estimated GFR 34 POC Glucose Random Glucose TNP Fasting Glucose 294 H Calcium 9.6 Magnesium 2.7 H Total Bilirubin 0.6 AST 25 ALT 51 H Alkaline Phosphatase 84 B-Natriuretic Peptide 82 Total Protein 7.2 Albumin 3.9 04/08/21 07:34 WBC RBC Hgb Hct MCV MCH MCHC RDW Plt Count MPV Immature Gran % (Auto) Neut % (Auto) Lymph % (Auto) Roberts % (Auto) Eos % (Auto) Baso % (Auto) Lymph # (Auto) Roberts # (Auto) Eos # (Auto) Baso # (Auto) Abs Immat Gran (auto) Absolute Neuts (auto) Absolute Nucleated RBC Nucleated RBC % (auto) Sodium Potassium Chloride Carbon Dioxide Anion Gap BUN Creatinine Estim Creat Clear Calc Estimated GFR POC Glucose 265 H Random Glucose Fasting Glucose Calcium Magnesium Total Bilirubin AST ALT Alkaline Phosphatase B-Natriuretic Peptide Total Protein Albumin Progress Note: A&P Assessment and plan (1) Acute on chronic diastolic (congestive) heart failure: Status: Acute (2) Persistent atrial fibrillation: Status: Acute (3) Acute respiratory failure with hypoxia: Status: Acute Assessment and Plan: In the recent echocardiogram, LV function hyperdynamic; severe left ventricle hypertrophy with severe left atrial dilatation possibly mild mitral stenosis from annular calcification. There is mild ascending aortic dilatation. On telemetry, atrial fibrillation at about 100/min. Clinically she still sounds wheezy. Unclear how much of this is pulmonary versus cardiac. Suspect more likely pulmonary in nature. Was on Lasix drip for CHF components, but now off. Continue to treat from pulmonary standpoint. Fall Risk Details Current Medications: Current Medications Acetaminophen (Acetaminophen 325 Mg Tablet) 650 mg PO Q6H PRN PRN Reason: Pain, Mild (Pain Scale 1-3) Last Admin: 04/05/21 18:41 Dose: 650 mg Documented by: Albuterol Sulfate (Albuterol Sulfate (0.042%) 1.25 Mg/3 Ml Vial.Neb) 0.63 mg INHALE Q4H PRN PRN Reason: shortness of breath or wheezing Albuterol/Ipratropium (Albuterol/Iprat 2.5/0.5mg 3 Ml Ampul.Neb) 3 ml INHALE RQ4H WHILE AWAKE [facility] Last Admin: 04/08/21 07:41 Dose: 3 ml Documented by: Albuterol/Ipratropium (Albuterol/Iprat 2.5/0.5mg 3 Ml Ampul.Neb) 3 ml INHALE RQ4H PRN PRN Reason: Shortness of Breath/Wheezing Last Admin: 04/06/21 07:44 Dose: 3 ml Documented by: Apixaban (Apixaban 5 Mg Tablet) 5 mg PO BID [facility] Last Admin: 04/08/21 08:23 Dose: 5 mg Documented by: Artificial Tears (Artificial Tears 15 Ml Drops) 2 drop EYE-BOTH Q4H PRN PRN Reason: Dry Eyes Ascorbic Acid (Ascorbic Acid 500 Mg Tablet) 500 mg PO DAILY [facility] Last Admin: 04/08/21 08:18 Dose: 500 mg Documented by: Bumetanide (Bumetanide 1 Mg Tablet) 2 mg PO BID@0800,1700 [facility]; Protocol Last Admin: 04/08/21 08:20 Dose: 2 mg Documented by: Dextrose (Dextrose 50 % 25 Gm/50 Ml Vial) 25 gm IVPUSH Q15M PRN; Protocol PRN Reason: per Hypoglycemia Standing Ord. Diltiazem HCl (Diltiazem Hcl Cd 240 Mg Cap.Er.Deg) 240 mg PO DAILY [facility]; Protocol Last Admin: 04/08/21 08:22 Dose: 240 mg Documented by: Docusate Sodium (Docusate Sodium 100 Mg Capsule) 100 mg PO DAILY PRN PRN Reason: Constipation Fluticasone/Vilanterol (Fluticasone/Vilanterol 200/25 Blst.W.Dev) 1 puff INHALE RDAILY [facility] Last Admin: 04/08/21 07:42 Dose: 1 puff Documented by: Folic Acid (Folic Acid 1 Mg Tablet) 1 mg PO DAILY [facility] Last Admin: 04/08/21 08:22 Dose: 1 mg Documented by: Gabapentin (Gabapentin 300 Mg Capsule) 300 mg PO BEDTIME [facility] Last Admin: 04/07/21 21:22 Dose: 300 mg Documented by: Glucose (Glucose Gel 15 Gm Gel..Gram.) 15 gm PO Q15M PRN; Protocol PRN Reason: per Hypoglycemia Standing Ord. Ceftriaxone Sodium 1 gm/ (Sodium Chloride) 50 mls @ 100 mls/hr IV Q24H [facility] Last Infusion: 04/07/21 10:15 Dose: Infused Documented by: Insulin Human Lispro (Insulin Lispro 100 Unit/Ml 3 Ml Vial) 0 unit SUBCUT QIDACHS [facility]; Protocol Last Admin: 04/08/21 08:04 Dose: 6 unit Documented by: Levothyroxine Sodium (Levothyroxine Sodium 50 Mcg Tablet) 50 mcg PO DAILY@0630 [facility] Last Admin: 04/08/21 06:38 Dose: 50 mcg Documented by: Lisinopril (Lisinopril 40 Mg Tablet) 40 mg PO DAILY [facility]; Protocol Last Admin: 04/08/21 08:20 Dose: 40 mg Documented by: Meclizine HCl (Meclizine Hcl 25 Mg Tablet) 25 mg PO DAILY PRN PRN Reason: dizziness Methylprednisolone Sodium Succinate (Methylprednisolone Sod Succ 40 Mg/Ml Vial) 40 mg IVPUSH Q24H [facility] Last Admin: 04/07/21 21:22 Dose: 40 mg Documented by: Naproxen (Naproxen 500 Mg Tablet) 500 mg PO BID PRN PRN Reason: Pain Omeprazole (Omeprazole 20 Mg Capsule.) 20 mg PO DAILY@0600 [facility] Last Admin: 04/08/21 06:38 Dose: 20 mg Documented by: Ondansetron HCl (Ondansetron Hcl 4 Mg/2 Ml Vial) 4 mg IVPUSH Q8H PRN PRN Reason: Nausea and Vomiting Pharmacy Consult (Consult Rx Perform Med Rec) 1 each MISCELLANE ONCE PRN PRN Reason: Consult order Sertraline HCl (Sertraline Hcl 50 Mg Tablet) 50 mg PO DAILY [facility] Last Admin: 04/08/21 08:17 Dose: 50 mg Documented by: Sodium Chloride (0.9 % Sodium Chloride Flush 3 Ml Syringe) 3 ml IVFLUSH QSHIFT [facility] Last Admin: 04/08/21 08:26 Dose: 3 ml Documented by: Spironolactone (Spironolactone 25 Mg Tablet) 25 mg PO DAILY [facility]; Protocol Last Admin: 04/08/21 08:16 Dose: 25 mg Documented by: Sulfasalazine (Sulfasalazine 500 Mg Tablet) 500 mg PO DAILY@1300 [facility] Last Admin: 04/07/21 12:24 Dose: 500 mg Documented by: Tiotropium [place] (Tiotropium [place] 18 Mcg Cap.W.Dev) 1 puff INHALE RDAILY [facility] Last Admin: 04/08/21 07:41 Dose: 1 puff Documented by: Time Spent With Patient Time: Total time spent is greater than 50% in coordination of care (as documented) at patient's floor/unit and/or counseling patient: Time with patient: less than 15 minutes Progress Note: Quality Stroke Does the patient have a stroke diagnosis?: No Procedures Date of Service Date of Service: 04/08/21
[2021-04-08 11:07] LABS: Glucose, Whole Blood 257 mg/dL (60-115)
[2021-04-08] MEDS: cefTRIAXone sodium 1 GM in 0.9 % Sodium Chloride 50 ML IV (12:05)
[2021-04-08] MEDS: sulfaSALAzine 500 MG TABLET PO (12:06)
[2021-04-08 12:42] LABS: Carbon Dioxide 41 mmol/L (22-29)
--- NOTE | 2021-04-08 13:41 | HO.PM.IMPN ---
Subjective Subjective Date of Service: 04/08/21 Interval History: Dyspnea improved; still wheezing. Edema improved. No chest pain. Refuses STR; has [employer] at home and family around 21/12. Review of Systems Review of Systems: Yes all other systems are reviewed and are negative Physical Exam Vital Signs: Vital Signs: Last Vital Signs Temp 97.7 F 04/08/21 12:00 Pulse 92 04/08/21 12:00 Resp 18 04/08/21 12:00 BP 121/63 04/08/21 12:00 Pulse Ox 93 04/08/21 12:00 Oxygen Flow Rate 2 04/02/21 14:46 Body Mass Index 40.2 Gen: in no acute distress HEENT: sclera anicteric, moist mucus membranes Neck: supple, no JVD Lungs: scattered expiratory wheezing Heart: irregularly irregular, no murmurs Abd: soft, non-tender, non-distended, obese Ext: 1+ bilateral edema, stockings in place Skin: warm/well-perfused Neuro: alert and oriented x3, no focal findings Psych: appropriate affect Objective Data Active Medications Acetaminophen (Acetaminophen 325 Mg Tablet) 650 mg PO Q6H PRN PRN Reason: Pain, Mild (Pain Scale 1-3) Last Admin: 04/05/21 18:41 Dose: 650 mg Documented by: DAWIT Albuterol Sulfate (Albuterol Sulfate (0.042%) 1.25 Mg/3 Ml Vial.Neb) 0.63 mg INHALE Q4H PRN PRN Reason: shortness of breath or wheezing Albuterol/Ipratropium (Albuterol/Iprat 2.5/0.5mg 3 Ml Ampul.Neb) 3 ml INHALE RQ4H WHILE AWAKE [facility] Last Admin: 04/08/21 11:30 Dose: 3 ml Documented by: FRANKLIN Albuterol/Ipratropium (Albuterol/Iprat 2.5/0.5mg 3 Ml Ampul.Neb) 3 ml INHALE RQ4H PRN PRN Reason: Shortness of Breath/Wheezing Last Admin: 04/06/21 07:44 Dose: 3 ml Documented by: FRANKLIN Apixaban (Apixaban 5 Mg Tablet) 5 mg PO BID [facility] Last Admin: 04/08/21 08:23 Dose: 5 mg Documented by: HO.S-TURGM Artificial Tears (Artificial Tears 15 Ml Drops) 2 drop EYE-BOTH Q4H PRN PRN Reason: Dry Eyes Ascorbic Acid (Ascorbic Acid 500 Mg Tablet) 500 mg PO DAILY [facility] Last Admin: 04/08/21 08:18 Dose: 500 mg Documented by: ALFRED Bumetanide (Bumetanide 1 Mg Tablet) 2 mg PO BID@0800,1700 [facility]; Protocol Last Admin: 04/08/21 08:20 Dose: 2 mg Documented by: ALFRED Dextrose (Dextrose 50 % 25 Gm/50 Ml Vial) 25 gm IVPUSH Q15M PRN; Protocol PRN Reason: per Hypoglycemia Standing Ord. Diltiazem HCl (Diltiazem Hcl Cd 240 Mg Cap.Er.Deg) 240 mg PO DAILY [facility]; Protocol Last Admin: 04/08/21 08:22 Dose: 240 mg Documented by: ALFRED Docusate Sodium (Docusate Sodium 100 Mg Capsule) 100 mg PO DAILY PRN PRN Reason: Constipation Fluticasone/Vilanterol (Fluticasone/Vilanterol 200/25 Blst.W.Dev) 1 puff INHALE RDAILY [facility] Last Admin: 04/08/21 07:42 Dose: 1 puff Documented by: HANNAH Folic Acid (Folic Acid 1 Mg Tablet) 1 mg PO DAILY [facility] Last Admin: 04/08/21 08:22 Dose: 1 mg Documented by: ALFRED Gabapentin (Gabapentin 300 Mg Capsule) 300 mg PO BEDTIME [facility] Last Admin: 04/07/21 21:22 Dose: 300 mg Documented by: CHRIS Glucose (Glucose Gel 15 Gm Gel..Gram.) 15 gm PO Q15M PRN; Protocol PRN Reason: per Hypoglycemia Standing Ord. Ceftriaxone Sodium 1 gm/ (Sodium Chloride) 50 mls @ 100 mls/hr IV Q24H [facility] Last Infusion: 04/08/21 12:35 Dose: 0 mls/hr Documented by: RENEE Insulin Human Lispro (Insulin Lispro 100 Unit/Ml 3 Ml Vial) 0 unit SUBCUT QIDACHS [facility]; Protocol Last Admin: 04/08/21 12:05 Dose: 6 unit Documented by: RENEE Levothyroxine Sodium (Levothyroxine Sodium 50 Mcg Tablet) 50 mcg PO DAILY@0630 [facility] Last Admin: 04/08/21 06:38 Dose: 50 mcg Documented by: MIK Lisinopril (Lisinopril 40 Mg Tablet) 40 mg PO DAILY [facility]; Protocol Last Admin: 04/08/21 08:20 Dose: 40 mg Documented by: ALFRED Meclizine HCl (Meclizine Hcl 25 Mg Tablet) 25 mg PO DAILY PRN PRN Reason: dizziness Methylprednisolone Sodium Succinate (Methylprednisolone Sod Succ 40 Mg/Ml Vial) 40 mg IVPUSH Q24H [facility] Last Admin: 04/07/21 21:22 Dose: 40 mg Documented by: CHRIS Naproxen (Naproxen 500 Mg Tablet) 500 mg PO BID PRN PRN Reason: Pain Omeprazole (Omeprazole 20 Mg Capsule.Dr) 20 mg PO DAILY@0600 [facility] Last Admin: 04/08/21 06:38 Dose: 20 mg Documented by: MIK Ondansetron HCl (Ondansetron Hcl 4 Mg/2 Ml Vial) 4 mg IVPUSH Q8H PRN PRN Reason: Nausea and Vomiting Pharmacy Consult (Consult Rx Perform Med Rec) 1 each MISCELLANE ONCE PRN PRN Reason: Consult order Sertraline HCl (Sertraline Hcl 50 Mg Tablet) 50 mg PO DAILY [facility] Last Admin: 04/08/21 08:17 Dose: 50 mg Documented by: ALFRED Sodium Chloride (0.9 % Sodium Chloride Flush 3 Ml Syringe) 3 ml IVFLUSH QSHIFT [facility] Last Admin: 04/08/21 08:26 Dose: 3 ml Documented by: ALFRED Spironolactone (Spironolactone 25 Mg Tablet) 25 mg PO DAILY [facility]; Protocol Last Admin: 04/08/21 08:16 Dose: 25 mg Documented by: ALFRED Sulfasalazine (Sulfasalazine 500 Mg Tablet) 500 mg PO DAILY@1300 [facility] Last Admin: 04/08/21 12:06 Dose: 500 mg Documented by: RENEE Tiotropium [place] (Tiotropium [place] 18 Mcg Cap.W.Dev) 1 puff INHALE RDAILY [facility] Last Admin: 04/08/21 07:41 Dose: 1 puff [facility] CBC & Chem 7: 04/08/21 06:33 04/08/21 06:33 Labs: Laboratory Results - last 24 hr 04/07/21 04/07/21 04/08/21 15:26 20:00 06:33 MCV 96.6 MCH 30.5 MCHC 31.6 RDW 14.7 Plt Count 221 MPV 11.9 Immature Gran % (Auto) 1.3 H Neut % (Auto) 81.8 H Lymph % (Auto) 12.6 L Ware % (Auto) 4.2 Eos % (Auto) 0.0 Baso % (Auto) 0.1 Lymph # (Auto) 1.1 L Ware # (Auto) 0.4 Eos # (Auto) 0.0 Baso # (Auto) 0.0 Abs Immat Gran (auto) 0.12 H Absolute Neuts (auto) 7.4 Absolute Nucleated RBC 0.000 Nucleated RBC % (auto) 0.0 Anion Gap Estim Creat Clear Calc Estimated GFR POC Glucose 198 H 266 H Random Glucose Fasting Glucose Calcium Magnesium Total Bilirubin AST ALT Alkaline Phosphatase B-Natriuretic Peptide Total Protein Albumin 04/08/21 04/08/21 04/08/21 06:33 06:33 07:34 MCV MCH MCHC RDW Plt Count MPV Immature Gran % (Auto) Neut % (Auto) Lymph % (Auto) Ware % (Auto) Eos % (Auto) Baso % (Auto) Lymph # (Auto) Ware # (Auto) Eos # (Auto) Baso # (Auto) Abs Immat Gran (auto) Absolute Neuts (auto) Absolute Nucleated RBC Nucleated RBC % (auto) Anion Gap 13 Estim Creat Clear Calc 32.6 Estimated GFR 34 POC Glucose 265 H Random Glucose TNP Fasting Glucose 294 H Calcium 9.6 Magnesium 2.7 H Total Bilirubin 0.6 AST 25 ALT 51 H Alkaline Phosphatase 84 B-Natriuretic Peptide 82 Total Protein 7.2 Albumin 3.9 04/08/21 11:02 MCV MCH MCHC RDW Plt Count MPV Immature Gran % (Auto) Neut % (Auto) Lymph % (Auto) Ware % (Auto) Eos % (Auto) Baso % (Auto) Lymph # (Auto) Ware # (Auto) Eos # (Auto) Baso # (Auto) Abs Immat Gran (auto) Absolute Neuts (auto) Absolute Nucleated RBC Nucleated RBC % (auto) Anion Gap Estim Creat Clear Calc Estimated GFR POC Glucose 257 H Random Glucose Fasting Glucose Calcium Magnesium Total Bilirubin AST ALT Alkaline Phosphatase B-Natriuretic Peptide Total Protein Albumin Assessment and Plan (1) Acute respiratory failure with hypoxia: Status: Acute (2) COPD exacerbation: Status: Acute Assessment and Plan: hospital d#7 80yo F with COPD/asthma, HFpEF, AF, LILY, recent COVID-19 infection presented with dyspnea admitted for hypoxia due to CHF + COPD exacerbations # acute hypoxic resp failure - resolved; does not qualify for home O2 # [id number] HFpEF - BNP normalized; BUN/Cr still rising; off furosemide gtt and changed to PO bumetanide yesterday; hold for now and recheck BUN/Cr tomorrow - refuses stress test and per Cardiology would not perform currently anyways given her tenuous respiratory status - continue spironolactone + lisinopril # COPD/asthma exacerbation - continue to wean IV steroids, continue tiotropium + Breo + prn nebs # LILY - continue CPAP # pAF - continue apixaban + diltiazem # HTN - continue spironolactone + lisinopril + diltiazem # RA - continue sulfasalazine # hypothyroidism - continue LT4 # DM2 with steroid-induced hyperglycemia - increase Lantus + Humalog doses # mood disorder - continue sertraline # VTE ppx - apixaban # dispo - anticipate home with VNA in next 1-2d Quality Stroke Does the patient have a stroke diagnosis?: No VTE Prior VTE?: No VTE Risk Level:: Medical - moderate - high VTE Device Contraindication: Treatment Not Indicated VTE Drug Contraindication: N/A - Med Ordered
[2021-04-08 14:34] LABS: Estimated Average Glucose 151 mg/dL; Hemoglobin A1c % 6.9 %
[2021-04-08 16:20] LABS: Glucose, Whole Blood 233 mg/dL (60-115)
[2021-04-08 20:24] LABS: Glucose, Whole Blood 181 mg/dL (60-115)
[2021-04-08] MEDS: methylPREDNISolone Sod Succ 40 MG/ML VIAL IVPUSH (20:59)
[2021-04-08] MEDS: Gabapentin 300 MG CAPSULE PO (20:59)
[2021-04-09] VITALS (12 sets, daily range): BP systolic 110–147; BP diastolic 60–68; PULSE 78–102; RESP 17–24; TEMP 36.1–36.9; O2SAT 93–99
[2021-04-09] MEDS: Acetaminophen 325 MG TABLET 650 MG PO ×2 (00:30→21:26)
[2021-04-09] MEDS: Levothyroxine Sodium 50 MCG TABLET PO (06:15)
[2021-04-09] MEDS: Omeprazole 20 MG CAPSULE.DR PO (06:15)
[2021-04-09 06:40] LABS: MANUAL DIFF FLAG NO
[2021-04-09 06:50] LABS: Basophils Percent Auto 0.1 % (0-2); Hematocrit 45.4 % (37.0-47.0); Hemoglobin 14.4 g/dl (12.0-16.0); Imm Gran Abs Auto 0.13 X10*3/uL (0.00-0.03); Imm Gran Pct Auto 1.4 % (0.0-0.4); Lymphocytes Percent Auto 10.2 % (20-40); Mean Corpuscular HGB Conc 31.7 g/dl (31.0-35.0); Mean Corpuscular Hemoglobin 30.4 pg (27.0-33.0); Mean Corpuscular Volume 95.8 fL (80.0-98.0); Monocytes Absolute Auto 0.4 X10*3/uL (0.1-1.2); Monocytes Percent Auto 3.7 % (2-11); Neutrophils Absolute Auto 8.1 x10*3/uL (2.0-8.3); Neutrophils Percent Auto 84.6 % (45-73); Platelet Count 225 X10*3/uL (160-400); Red Blood Count 4.74 X10*6/uL (4.20-5.50); Red Cell Distribution Width 14.6 % (11.0-16.0); White Blood Count 9.6 X10*3/uL (4.8-10.8)
[2021-04-09 07:14] LABS: B Type Natriuretic Peptide 52 pg/mL (<100)
[2021-04-09 07:24] LABS: Glucose, Whole Blood 264 mg/dL (60-115)
[2021-04-09 07:24] LABS: Alanine Aminotransferase 40 U/L (0-31); Albumin Level 3.9 g/dL (3.5-5.0); Alkaline Phosphatase 77 U/L (39-117); Anion Gap 13 (12-20); Aspartate Amino Transferase 18 U/L (5-31); Bilirubin Total 0.7 mg/dL (0.0-1.0); Blood Urea Nitrogen 79 mg/dL (9-16); Calcium 9.4 mg/dL (8.4-10.2); Carbon Dioxide 37 mmol/L (22-29); Chloride 92 mmol/L (96-108); Creatinine Clr Calc Pharmacy 36.3; Estimated Glomerular Filt Rate 39; Glucose Fasting 281 mg/dL (60-99); Potassium 5.1 mmol/L (3.3-5.1); Sodium 137 mmol/L (135-145)
[2021-04-09] MEDS: Insulin Lispro 100 UNIT/ML 3 ML VIAL SUBCUT ×4 (08:04→21:26)
[2021-04-09] MEDS: 0.9 % Sodium Chloride Flush 3 ML SYRINGE IVFLUSH ×3 (08:04→21:27)
[2021-04-09] MEDS: dilTIAZem HCL CD 240 MG CAP.ER.DEG PO (08:04)
[2021-04-09] MEDS: Sertraline HCL 50 MG TABLET PO (08:04)
[2021-04-09] MEDS: lisinopriL 40 MG TABLET PO (08:04)
[2021-04-09] MEDS: Folic Acid 1 MG TABLET PO (08:05)
[2021-04-09] MEDS: Spironolactone 25 MG TABLET PO (08:05)
[2021-04-09] MEDS: Ascorbic Acid 500 MG TABLET PO (08:05)
[2021-04-09] MEDS: Apixaban 5 MG TABLET PO ×2 (08:05→21:27)
[2021-04-09 11:24] LABS: Glucose, Whole Blood 217 mg/dL (60-115)
[2021-04-09] MEDS: Albuterol/Iprat 2.5/0.5MG 3 ML AMPUL.NEB INHALE ×3 (11:24→19:38)
[2021-04-09] MEDS: sulfaSALAzine 500 MG TABLET PO (11:29)
[2021-04-09] MEDS: cefTRIAXone sodium 1 GM in 0.9 % Sodium Chloride 50 ML IV (11:29)
--- NOTE | 2021-04-09 12:47 | MHC.CM.PN ---
per rounds pt expected to dc thurs plan reman ins home with tico
--- NOTE | 2021-04-09 13:55 | P.PNIM_ITS ---
Subjective Subjective Date of Service: 04/09/21 Interval History: Still wheezing though less dyspneic No chest pain Edema improved Weaned off O2 Review of Systems Review of Systems: Yes all other systems are reviewed and are negative Physical Exam Vital Signs: Vital Signs: Last Vital Signs Temp 97.2 F 04/09/21 11:44 Pulse 102 H 04/09/21 11:44 Resp 18 04/09/21 11:44 BP 128/62 04/09/21 11:44 Pulse Ox 95 04/09/21 11:44 Oxygen Flow Rate 2 04/02/21 14:46 Body Mass Index 40.2 Gen: in no acute distress HEENT: sclera anicteric, moist mucus membranes Neck: supple, no JVD Lungs: scattered expiratory wheezing Heart: irregularly irregular, no murmurs Abd: soft, non-tender, non-distended, obese Ext: 1+ bilateral edema, stockings in place Skin: warm/well-perfused Neuro: alert and oriented x3, no focal findings Psych: appropriate affect Objective Data Active Medications Acetaminophen (Acetaminophen 325 Mg Tablet) 650 mg PO Q6H PRN PRN Reason: Pain, Mild (Pain Scale 1-3) Last Admin: 04/09/21 00:30 Dose: 650 mg Documented by: AMBER Albuterol Sulfate (Albuterol Sulfate (0.042%) 1.25 Mg/3 Ml Vial.Neb) 0.63 mg INHALE Q4H PRN PRN Reason: shortness of breath or wheezing Albuterol/Ipratropium (Albuterol/Iprat 2.5/0.5mg 3 Ml Ampul.Neb) 3 ml INHALE RQ4H WHILE AWAKE [facility] Last Admin: 04/09/21 11:24 Dose: 3 ml Documented by: CLAUDIA Albuterol/Ipratropium (Albuterol/Iprat 2.5/0.5mg 3 Ml Ampul.Neb) 3 ml INHALE RQ4H PRN PRN Reason: Shortness of Breath/Wheezing Last Admin: 04/06/21 07:44 Dose: 3 ml Documented by: FRANKLIN Apixaban (Apixaban 5 Mg Tablet) 5 mg PO BID [facility] Last Admin: 04/09/21 08:05 Dose: 5 mg Documented by: JED Artificial Tears (Artificial Tears 15 Ml Drops) 2 drop EYE-BOTH Q4H PRN PRN Reason: Dry Eyes Ascorbic Acid (Ascorbic Acid 500 Mg Tablet) 500 mg PO DAILY [facility] Last Admin: 04/09/21 08:05 Dose: 500 mg Documented by: JED Bumetanide (Bumetanide 1 Mg Tablet) 2 mg PO BID@0800,1700 [facility]; Protocol Last Admin: 04/08/21 08:20 Dose: 2 mg Documented by: NAHEED-TURGM Dextrose (Dextrose 50 % 25 Gm/50 Ml Vial) 25 gm IVPUSH Q15M PRN; Protocol PRN Reason: per Hypoglycemia Standing Ord. Diltiazem HCl (Diltiazem Hcl Cd 240 Mg Cap.Er.Deg) 240 mg PO DAILY [facility]; Protocol Last Admin: 04/09/21 08:04 Dose: 240 mg Documented by: JED Docusate Sodium (Docusate Sodium 100 Mg Capsule) 100 mg PO DAILY PRN PRN Reason: Constipation Fluticasone/Vilanterol (Fluticasone/Vilanterol 200/25 Blst.W.Dev) 1 puff INHALE RDAILY [facility] Last Admin: 04/09/21 07:50 Dose: Not Given Documented by: CLAUDIA Non-Admin Reason: Patient Refused Folic Acid (Folic Acid 1 Mg Tablet) 1 mg PO DAILY [facility] Last Admin: 04/09/21 08:05 Dose: 1 mg Documented by: JED Gabapentin (Gabapentin 300 Mg Capsule) 300 mg PO BEDTIME [facility] Last Admin: 04/08/21 20:59 Dose: 300 mg Documented by: LEONARDO Glucose (Glucose Gel 15 Gm Gel..Gram.) 15 gm PO Q15M PRN; Protocol PRN Reason: per Hypoglycemia Standing Ord. Ceftriaxone Sodium 1 gm/ (Sodium Chloride) 50 mls @ 100 mls/hr IV Q24H [facility] Last Infusion: 04/09/21 12:03 Dose: 0 mls/hr Documented by: JED Insulin Human Lispro (Insulin Lispro 100 Unit/Ml 3 Ml Vial) 0 unit SUBCUT QIDACHS [facility]; Protocol Last Admin: 04/09/21 11:29 Dose: 6 unit Documented by: JED Levothyroxine Sodium (Levothyroxine Sodium 50 Mcg Tablet) 50 mcg PO DAILY@0630 [facility] Last Admin: 04/09/21 06:15 Dose: 50 mcg Documented by: AMBER Lisinopril (Lisinopril 40 Mg Tablet) 40 mg PO DAILY [facility]; Protocol Last Admin: 04/09/21 08:04 Dose: 40 mg Documented by: JED Meclizine HCl (Meclizine Hcl 25 Mg Tablet) 25 mg PO DAILY PRN PRN Reason: dizziness Methylprednisolone Sodium Succinate (Methylprednisolone Sod Succ 40 Mg/Ml Vial) 40 mg IVPUSH Q24H [facility] Last Admin: 04/08/21 20:59 Dose: 40 mg Documented by: LEONARDO Naproxen (Naproxen 500 Mg Tablet) 500 mg PO BID PRN PRN Reason: Pain Omeprazole (Omeprazole 20 Mg Capsule.Dr) 20 mg PO DAILY@0600 [facility] Last Admin: 04/09/21 06:15 Dose: 20 mg Documented by: AMBER Ondansetron HCl (Ondansetron Hcl 4 Mg/2 Ml Vial) 4 mg IVPUSH Q8H PRN PRN Reason: Nausea and Vomiting Pharmacy Consult (Consult Rx Perform Med Rec) 1 each MISCELLANE ONCE PRN PRN Reason: Consult order Sertraline HCl (Sertraline Hcl 50 Mg Tablet) 50 mg PO DAILY [facility] Last Admin: 04/09/21 08:04 Dose: 50 mg Documented by: JED Sodium Chloride (0.9 % Sodium Chloride Flush 3 Ml Syringe) 3 ml IVFLUSH QSHIFT [facility] Last Admin: 04/09/21 08:04 Dose: 3 ml Documented by: JED Spironolactone (Spironolactone 25 Mg Tablet) 25 mg PO DAILY [facility]; Protocol Last Admin: 04/09/21 08:05 Dose: 25 mg Documented by: JED Sulfasalazine (Sulfasalazine 500 Mg Tablet) 500 mg PO DAILY@1300 [facility] Last Admin: 04/09/21 11:29 Dose: 500 mg Documented by: JED Tiotropium [place] (Tiotropium [place] 18 Mcg Cap.W.Dev) 1 puff INHALE RDAILY [facility] Last Admin: 04/09/21 07:50 Dose: Not Given Documented by: CLAUDIA Non-Admin Reason: Patient Refused Labs CBC & Chem 7: 04/09/21 06:20 04/09/21 06:20 Labs: Laboratory Results - last 24 hr 04/08/21 04/08/21 04/08/21 06:33 16:10 20:20 MCV MCH MCHC RDW Plt Count MPV Immature Gran % (Auto) Neut % (Auto) Lymph % (Auto) [place] % (Auto) Eos % (Auto) Baso % (Auto) Lymph # (Auto) [place] # (Auto) Eos # (Auto) Baso # (Auto) Abs Immat Gran (auto) Absolute Neuts (auto) Absolute Nucleated RBC Nucleated RBC % (auto) Anion Gap Estim Creat Clear Calc Estimated GFR POC Glucose 233 H 181 H Random Glucose Fasting Glucose Estimat Average Glucose 151 Hemoglobin A1c % 6.9 Calcium Total Bilirubin AST ALT Alkaline Phosphatase B-Natriuretic Peptide Total Protein Albumin 04/09/21 04/09/21 04/09/21 06:20 06:20 06:20 MCV 95.8 MCH 30.4 MCHC 31.7 RDW 14.6 Plt Count 225 MPV 12.0 Immature Gran % (Auto) 1.4 H Neut % (Auto) 84.6 H Lymph % (Auto) 10.2 L [place] % (Auto) 3.7 Eos % (Auto) 0.0 Baso % (Auto) 0.1 Lymph # (Auto) 1.0 L [place] # (Auto) 0.4 Eos # (Auto) 0.0 Baso # (Auto) 0.0 Abs Immat Gran (auto) 0.13 H Absolute Neuts (auto) 8.1 Absolute Nucleated RBC 0.000 Nucleated RBC % (auto) 0.0 Anion Gap 13 Estim Creat Clear Calc 36.3 Estimated GFR 39 POC Glucose Random Glucose TNP Fasting Glucose 281 H Estimat Average Glucose Hemoglobin A1c % Calcium 9.4 Total Bilirubin 0.7 AST 18 ALT 40 H Alkaline Phosphatase 77 B-Natriuretic Peptide 52 Total Protein 7.0 Albumin 3.9 04/09/21 04/09/21 07:18 11:16 MCV MCH MCHC RDW Plt Count MPV Immature Gran % (Auto) Neut % (Auto) Lymph % (Auto) [place] % (Auto) Eos % (Auto) Baso % (Auto) Lymph # (Auto) [place] # (Auto) Eos # (Auto) Baso # (Auto) Abs Immat Gran (auto) Absolute Neuts (auto) Absolute Nucleated RBC Nucleated RBC % (auto) Anion Gap Estim Creat Clear Calc Estimated GFR POC Glucose 264 H 217 H Random Glucose Fasting Glucose Estimat Average Glucose Hemoglobin A1c % Calcium Total Bilirubin AST ALT Alkaline Phosphatase B-Natriuretic Peptide Total Protein Albumin Assessment and Plan (1) Acute respiratory failure with hypoxia: Status: Acute (2) COPD exacerbation: Status: Acute Assessment and Plan: hospital d#8 80yo F with COPD/asthma, HFpEF, AF, LILY, recent COVID-19 infection presented with dyspnea admitted for hypoxia due to CHF + COPD exacerbations # acute hypoxic resp failure - resolved; does not qualify for home O2 # ADHF/[id number] HFpEF - BNP normalized and furosemide gtt discontinued; BUN/Cr elevated but improved; held bumetanide -> resume today and recheck BUN/Cr in am - refuses stress test and per Cardiology would not perform currently anyways given her tenuous respiratory status - continue spironolactone + lisinopril # COPD/asthma exacerbation - continue to wean IV steroids, continue tiotropium + Breo + prn nebs # LILY - continue CPAP # pAF - continue apixaban + diltiazem # HTN - continue spironolactone + lisinopril + diltiazem # RA - continue sulfasalazine # hypothyroidism - continue LT4 # DM2 with steroid-induced hyperglycemia - increased Lantus + Humalog doses # mood disorder - continue sertraline # VTE ppx - apixaban # dispo - anticipate home with VNA likely tomorrow Quality Stroke Does the patient have a stroke diagnosis?: No VTE Prior VTE?: No VTE Risk Level:: Medical - moderate - high VTE Device Contraindication: Treatment Not Indicated VTE Drug Contraindication: N/A - Med Ordered
--- NOTE | 2021-04-09 13:57 | PC.NURSE ---
Skin/wound assessment completed. Patient has a small venous wound on right norris, cleansed with wound cleanser, barrier cream around edges, hydrofera blue on wound bed covered with foam dressing. No other skin issues noted at this time.
[2021-04-09 16:16] LABS: Glucose, Whole Blood 186 mg/dL (60-115)
[2021-04-09] MEDS: Bumetanide 1 MG TABLET 2 MG PO (16:30)
[2021-04-09 20:49] LABS: Glucose, Whole Blood 227 mg/dL (60-115)
[2021-04-09] MEDS: methylPREDNISolone Sod Succ 40 MG/ML VIAL IVPUSH (21:27)
[2021-04-09] MEDS: Gabapentin 300 MG CAPSULE PO (21:27)
[2021-04-10] VITALS (11 sets, daily range): BP systolic 116–142; BP diastolic 51–81; PULSE 87–114; RESP 18–20; TEMP 36.2–36.5; O2SAT 94–96
--- NOTE | 2021-04-10 | ECG_ITS ---
Test Reason : HYPERK Blood Pressure : / mmHG Vent. Rate : 085 BPM Atrial Rate : 234 BPM P-R Int : 000 ms QRS Dur : 090 ms QT Int : 374 ms P-R-T Axes : 000 120 036 degrees QTc Int : 445 ms Atrial fibrillation Intra-ventricular conduction delay Right axis deviation Abnormal ECG When compared with ECG of 02-APR-2021 16:21, No significant changes seen Referred By: Terese Mcghee Electronically Signed By:ALVERTO HUDSON MD
[2021-04-10] MEDS: Levothyroxine Sodium 50 MCG TABLET PO (06:45)
[2021-04-10] MEDS: Omeprazole 20 MG CAPSULE.DR PO (06:45)
[2021-04-10 07:21] LABS: Glucose, Whole Blood 264 mg/dL (60-115)
[2021-04-10] MEDS: Albuterol/Iprat 2.5/0.5MG 3 ML AMPUL.NEB INHALE ×3 (07:27→19:55)
[2021-04-10] MEDS: Fluticasone/Vilanterol 200/25 BLST.W.DEV 1 PUFF INHALE (07:29)
[2021-04-10] MEDS: Insulin Lispro 100 UNIT/ML 3 ML VIAL SUBCUT ×4 (07:45→20:47)
[2021-04-10] MEDS: 0.9 % Sodium Chloride Flush 3 ML SYRINGE IVFLUSH ×2 (07:45→16:56)
[2021-04-10 08:49] LABS: Anion Gap 18 (12-20); Blood Urea Nitrogen 71 mg/dL (9-16); Calcium 9.4 mg/dL (8.4-10.2); Carbon Dioxide 33 mmol/L (22-29); Chloride 91 mmol/L (96-108); Creatinine Clr Calc Pharmacy 35.4; Estimated Glomerular Filt Rate 38; Glucose Random 284 mg/dL (60-115); Magnesium 2.7 mg/dL (1.6-2.6); Potassium 6.3 mmol/L (3.3-5.1); Sodium 136 mmol/L (135-145)
[2021-04-10] MEDS: Spironolactone 25 MG TABLET PO (09:03)
[2021-04-10] MEDS: Folic Acid 1 MG TABLET PO (09:03)
[2021-04-10] MEDS: Bumetanide 1 MG TABLET 2 MG PO ×2 (09:04→16:56)
[2021-04-10] MEDS: lisinopriL 40 MG TABLET PO (09:04)
[2021-04-10] MEDS: Apixaban 5 MG TABLET PO ×2 (09:04→20:10)
[2021-04-10] MEDS: Ascorbic Acid 500 MG TABLET PO (09:04)
[2021-04-10] MEDS: Sertraline HCL 50 MG TABLET PO (09:04)
[2021-04-10] MEDS: dilTIAZem HCL CD 240 MG CAP.ER.DEG PO (09:04)
[2021-04-10 09:59] LABS: Anion Gap 13 (12-20); Blood Urea Nitrogen 72 mg/dL (9-16); Calcium 9.4 mg/dL (8.4-10.2); Carbon Dioxide 35 mmol/L (22-29); Chloride 90 mmol/L (96-108); Creatinine Clr Calc Pharmacy 34.4; Estimated Glomerular Filt Rate 36; Glucose Random 375 mg/dL (60-115); Potassium 5.5 mmol/L (3.3-5.1); Sodium 132 mmol/L (135-145)
--- NOTE | 2021-04-10 11:02 | PM.PNCARD ---
Subjective Subjective Date of Service: 04/10/21 Principal diagnosis: Respiratory failure, congestive heart failure Interval history: Shortness of breath slightly improved. No new complaints. No angina. Review of Systems Review of Systems Yes all other systems are reviewed and are negative Cardiovascular: Reports as per HPI, Reports no additional cardiovascular complaints, Denies acrocyanosis, Denies cool extremities, Denies painful fingertips, Denies chest pain, Denies chest pain at rest, Denies diaphoresis, Denies syncope, Denies irregular heart rhythm, Denies claudication, Denies leg edema, Denies lightheadedness, Denies palpitations and Reports dyspnea Respiratory: Reports dyspnea Denies syncope Endocrine: Denies palpitations Physical Exam Vital Signs: Last Vital Signs Temp 97.1 F 04/10/21 07:32 Pulse 94 04/10/21 09:04 Resp 18 04/10/21 07:32 BP 142/77 H 04/10/21 09:04 Pulse Ox 94 04/10/21 07:32 Oxygen Flow Rate 2 04/02/21 14:46 Body Mass Index 40.2 Const General: cooperative and no acute distress [facility] Other: Unremarkable Neck Neck: Yes normal visual inspection Chest Chest palpation & inspection: normal inspection of the chest Resp Auscultation: no crackles, wheezes and diminished lung sounds Cardio Jugular venous distension: no JVD Palpation: normal PMI Heart sounds: S1 normal heart sound present, S2 normal heart sound present, no gallops, no murmurs and no rubs GI Palpation (GI): Soft to palpation Back/Spine/Pelvis Other: unremarkable Skin General skin exam: no rashes or lesions noted Neuro Cranial nerves: Yes Other cranial nerve findings present Extrem General: Yes pedal edema (trace) Psych Mental Status: other Results Labs and Meds Result diagrams: 04/09/21 06:20 04/10/21 09:14 Lab results: Laboratory Results - last 24 hr 04/09/21 04/09/21 04/09/21 11:16 16:10 20:45 Sodium Potassium Chloride Carbon Dioxide Anion Gap BUN Creatinine Estim Creat Clear Calc Estimated GFR POC Glucose 217 H 186 H 227 H Random Glucose Calcium Magnesium 04/10/21 04/10/21 04/10/21 06:12 07:17 09:14 Sodium 136 132 L Potassium 6.3 H* D 5.5 H Chloride 91 L 90 L Carbon Dioxide 33 H 35 H Anion Gap 18 13 BUN 71 H 72 H Creatinine 1.35 1.39 Estim Creat Clear Calc 35.4 34.4 Estimated GFR 38 36 POC Glucose 264 H Random Glucose 284 H 375 H* Calcium 9.4 9.4 Magnesium 2.7 H Progress Note: A&P Assessment and plan (1) Acute on chronic diastolic (congestive) heart failure: Status: Acute (2) Persistent atrial fibrillation: Status: Acute (3) Acute respiratory failure with hypoxia: Status: Acute Assessment and Plan: In the recent echocardiogram, LV function hyperdynamic; severe left ventricle hypertrophy with severe left atrial dilatation possibly mild mitral stenosis from annular calcification. There is mild ascending aortic dilatation. On telemetry, atrial fibrillation at about 100/min. Clinically she still sounds wheezy. Suspect more likely pulmonary in nature. Was on Lasix drip for CHF components, but now on oral Bumex. Continue to treat from pulmonary standpoint. Telemetry with atrial fibrillation; about 100/min; one episode of broad complex rhythm at slightly over 100/min, possible NSVT vs aberrancy; Discussed with daughter; Stress testing to be planned after pulmonary status improves, possibly as outpt. Fall Risk Details Current Medications: Current Medications Acetaminophen (Acetaminophen 325 Mg Tablet) 650 mg PO Q6H PRN PRN Reason: Pain, Mild (Pain Scale 1-3) Last Admin: 04/09/21 21:26 Dose: 650 mg Documented by: Albuterol Sulfate (Albuterol Sulfate (0.042%) 1.25 Mg/3 Ml Vial.Neb) 0.63 mg INHALE Q4H PRN PRN Reason: shortness of breath or wheezing Albuterol/Ipratropium (Albuterol/Iprat 2.5/0.5mg 3 Ml Ampul.Neb) 3 ml INHALE RQ4H WHILE AWAKE [facility] Last Admin: 04/10/21 07:27 Dose: 3 ml Documented by: Albuterol/Ipratropium (Albuterol/Iprat 2.5/0.5mg 3 Ml Ampul.Neb) 3 ml INHALE RQ4H PRN PRN Reason: Shortness of Breath/Wheezing Last Admin: 04/06/21 07:44 Dose: 3 ml Documented by: Apixaban (Apixaban 5 Mg Tablet) 5 mg PO BID [facility] Last Admin: 04/10/21 09:04 Dose: 5 mg Documented by: Artificial Tears (Artificial Tears 15 Ml Drops) 2 drop EYE-BOTH Q4H PRN PRN Reason: Dry Eyes Ascorbic Acid (Ascorbic Acid 500 Mg Tablet) 500 mg PO DAILY [facility] Last Admin: 04/10/21 09:04 Dose: 500 mg Documented by: Bumetanide (Bumetanide 1 Mg Tablet) 2 mg PO BID@0800,1700 [facility]; Protocol Last Admin: 04/10/21 09:04 Dose: 2 mg Documented by: Dextrose (Dextrose 50 % 25 Gm/50 Ml Vial) 25 gm IVPUSH Q15M PRN; Protocol PRN Reason: per Hypoglycemia Standing Ord. Diltiazem HCl (Diltiazem Hcl Cd 240 Mg Cap.Er.Deg) 240 mg PO DAILY [facility]; Protocol Last Admin: 04/10/21 09:04 Dose: 240 mg Documented by: Docusate Sodium (Docusate Sodium 100 Mg Capsule) 100 mg PO DAILY PRN PRN Reason: Constipation Fluticasone/Vilanterol (Fluticasone/Vilanterol 200/25 Blst.W.Dev) 1 puff INHALE RDAILY [facility] Last Admin: 04/10/21 07:29 Dose: 1 puff Documented by: Folic Acid (Folic Acid 1 Mg Tablet) 1 mg PO DAILY [facility] Last Admin: 04/10/21 09:03 Dose: 1 mg Documented by: Gabapentin (Gabapentin 300 Mg Capsule) 300 mg PO BEDTIME [facility] Last Admin: 04/09/21 21:27 Dose: 300 mg Documented by: Glucose (Glucose Gel 15 Gm Gel..Gram.) 15 gm PO Q15M PRN; Protocol PRN Reason: per Hypoglycemia Standing Ord. Insulin Human Lispro (Insulin Lispro 100 Unit/Ml 3 Ml Vial) 0 unit SUBCUT QIDACHS [facility]; Protocol Last Admin: 04/10/21 07:45 Dose: 8 unit Documented by: Levothyroxine Sodium (Levothyroxine Sodium 50 Mcg Tablet) 50 mcg PO DAILY@0630 [facility] Last Admin: 04/10/21 06:45 Dose: 50 mcg Documented by: Lisinopril (Lisinopril 20 Mg Tablet) 20 mg PO DAILY [facility]; Protocol Meclizine HCl (Meclizine Hcl 25 Mg Tablet) 25 mg PO DAILY PRN PRN Reason: dizziness Methylprednisolone Sodium Succinate (Methylprednisolone Sod Succ 40 Mg/Ml Vial) 40 mg IVPUSH Q24H [facility] Last Admin: 04/09/21 21:27 Dose: 40 mg Documented by: Naproxen (Naproxen 500 Mg Tablet) 500 mg PO BID PRN PRN Reason: Pain Omeprazole (Omeprazole 20 Mg Capsule.Dr) 20 mg PO DAILY@0600 [facility] Last Admin: 04/10/21 06:45 Dose: 20 mg Documented by: Ondansetron HCl (Ondansetron Hcl 4 Mg/2 Ml Vial) 4 mg IVPUSH Q8H PRN PRN Reason: Nausea and Vomiting Pharmacy Consult (Consult Rx Perform Med Rec) 1 each MISCELLANE ONCE PRN PRN Reason: Consult order Sertraline HCl (Sertraline Hcl 50 Mg Tablet) 50 mg PO DAILY [facility] Last Admin: 04/10/21 09:04 Dose: 50 mg Documented by: Sodium Chloride (0.9 % Sodium Chloride Flush 3 Ml Syringe) 3 ml IVFLUSH QSHIFT [facility] Last Admin: 04/10/21 07:45 Dose: 3 ml Documented by: Sulfasalazine (Sulfasalazine 500 Mg Tablet) 500 mg PO DAILY@1300 [facility] Last Admin: 04/09/21 11:29 Dose: 500 mg Documented by: Tiotropium [place] (Tiotropium [place] 18 Mcg Cap.W.Dev) 1 puff INHALE RDAILY [facility] Last Admin: 04/10/21 07:30 Dose: Not Given Documented by: Time Spent With Patient Time: Total time spent is greater than 50% in coordination of care (as documented) at patient's floor/unit and/or counseling patient: Time with patient: less than 15 minutes Progress Note: Quality Stroke Does the patient have a stroke diagnosis?: No Procedures Date of Service Date of Service: 04/10/21
[2021-04-10 11:19] LABS: Glucose, Whole Blood 295 mg/dL (60-115)
[2021-04-10] MEDS: sulfaSALAzine 500 MG TABLET PO (12:08)
[2021-04-10] MEDS: Sodium Zirconium Cyclosilicate 10 GM POWD.PACK PO (12:08)
[2021-04-10] MEDS: Acetaminophen 325 MG TABLET 650 MG PO (12:11)
--- NOTE | 2021-04-10 12:44 | P.PNIM_ITS ---
Subjective Subjective Date of Service: 04/10/21 Interval History: Still dyspneic + wheezing No chest pain K high this am Review of Systems Review of Systems: Yes all other systems are reviewed and are negative Physical Exam Vital Signs: Vital Signs: Last Vital Signs Temp 97.7 F 04/10/21 11:56 Pulse 114 H 04/10/21 11:56 Resp 20 04/10/21 11:56 BP 131/51 L 04/10/21 11:56 Pulse Ox 96 04/10/21 11:56 Oxygen Flow Rate 2 04/02/21 14:46 Body Mass Index 40.2 Gen: in no acute distress HEENT: sclera anicteric, moist mucus membranes Neck: supple, no JVD Lungs: scattered expiratory wheezing Heart: irregularly irregular, no murmurs Abd: soft, non-tender, non-distended, obese Ext: 1+ bilateral edema, stockings in place Skin: warm/well-perfused Neuro: alert and oriented x3, no focal findings Psych: appropriate affect Objective Data Active Medications Acetaminophen (Acetaminophen 325 Mg Tablet) 650 mg PO Q6H PRN PRN Reason: Pain, Mild (Pain Scale 1-3) Last Admin: 04/10/21 12:11 Dose: 650 mg Documented by: CAROLE Albuterol Sulfate (Albuterol Sulfate (0.042%) 1.25 Mg/3 Ml Vial.Neb) 0.63 mg INHALE Q4H PRN PRN Reason: shortness of breath or wheezing Albuterol/Ipratropium (Albuterol/Iprat 2.5/0.5mg 3 Ml Ampul.Neb) 3 ml INHALE RQ4H WHILE AWAKE [facility] Last Admin: 04/10/21 11:04 Dose: 3 ml Documented by: CLAUDIA Albuterol/Ipratropium (Albuterol/Iprat 2.5/0.5mg 3 Ml Ampul.Neb) 3 ml INHALE RQ4H PRN PRN Reason: Shortness of Breath/Wheezing Last Admin: 04/06/21 07:44 Dose: 3 ml Documented by: FRANKLIN Apixaban (Apixaban 5 Mg Tablet) 5 mg PO BID [facility] Last Admin: 04/10/21 09:04 Dose: 5 mg Documented by: CAROLE Artificial Tears (Artificial Tears 15 Ml Drops) 2 drop EYE-BOTH Q4H PRN PRN Reason: Dry Eyes Ascorbic Acid (Ascorbic Acid 500 Mg Tablet) 500 mg PO DAILY [facility] Last Admin: 04/10/21 09:04 Dose: 500 mg Documented by: CAROLE Bumetanide (Bumetanide 1 Mg Tablet) 2 mg PO BID@0800,1700 [facility]; Protocol Last Admin: 04/10/21 09:04 Dose: 2 mg Documented by: CAROLE Dextrose (Dextrose 50 % 25 Gm/50 Ml Vial) 25 gm IVPUSH Q15M PRN; Protocol PRN Reason: per Hypoglycemia Standing Ord. Diltiazem HCl (Diltiazem Hcl Cd 240 Mg Cap.Er.Deg) 240 mg PO DAILY [facility]; Protocol Last Admin: 04/10/21 09:04 Dose: 240 mg Documented by: CAROLE Docusate Sodium (Docusate Sodium 100 Mg Capsule) 100 mg PO DAILY PRN PRN Reason: Constipation Fluticasone/Vilanterol (Fluticasone/Vilanterol 200/25 Blst.W.Dev) 1 puff INHALE RDAILY [facility] Last Admin: 04/10/21 07:29 Dose: 1 puff Documented by: CLAUDIA Folic Acid (Folic Acid 1 Mg Tablet) 1 mg PO DAILY [facility] Last Admin: 04/10/21 09:03 Dose: 1 mg Documented by: CAROLE Gabapentin (Gabapentin 300 Mg Capsule) 300 mg PO BEDTIME [facility] Last Admin: 04/09/21 21:27 Dose: 300 mg Documented by: SYLVIA Glucose (Glucose Gel 15 Gm Gel..Gram.) 15 gm PO Q15M PRN; Protocol PRN Reason: per Hypoglycemia Standing Ord. Insulin Human Lispro (Insulin Lispro 100 Unit/Ml 3 Ml Vial) 0 unit SUBCUT QIDACHS [facility]; Protocol Last Admin: 04/10/21 12:07 Dose: 8 unit Documented by: CAROLE Levothyroxine Sodium (Levothyroxine Sodium 50 Mcg Tablet) 50 mcg PO DAILY@0630 [facility] Last Admin: 04/10/21 06:45 Dose: 50 mcg Documented by: SYLVIA Lisinopril (Lisinopril 20 Mg Tablet) 20 mg PO DAILY [facility]; Protocol Meclizine HCl (Meclizine Hcl 25 Mg Tablet) 25 mg PO DAILY PRN PRN Reason: dizziness Methylprednisolone Sodium Succinate (Methylprednisolone Sod Succ 40 Mg/Ml Vial) 40 mg IVPUSH Q24H [facility] Last Admin: 04/09/21 21:27 Dose: 40 mg Documented by: SYLVIA Naproxen (Naproxen 500 Mg Tablet) 500 mg PO BID PRN PRN Reason: Pain Omeprazole (Omeprazole 20 Mg Capsule.Dr) 20 mg PO DAILY@0600 [facility] Last Admin: 04/10/21 06:45 Dose: 20 mg Documented by: SYLVIA Ondansetron HCl (Ondansetron Hcl 4 Mg/2 Ml Vial) 4 mg IVPUSH Q8H PRN PRN Reason: Nausea and Vomiting Pharmacy Consult (Consult Rx Perform Med Rec) 1 each MISCELLANE ONCE PRN PRN Reason: Consult order Sertraline HCl (Sertraline Hcl 50 Mg Tablet) 50 mg PO DAILY [facility] Last Admin: 04/10/21 09:04 Dose: 50 mg Documented by: CAROLE Sodium Chloride (0.9 % Sodium Chloride Flush 3 Ml Syringe) 3 ml IVFLUSH QSHIFT [facility] Last Admin: 04/10/21 07:45 Dose: 3 ml Documented by: CAROLE Sulfasalazine (Sulfasalazine 500 Mg Tablet) 500 mg PO DAILY@1300 [facility] Last Admin: 04/10/21 12:08 Dose: 500 mg Documented by: CAROLE Tiotropium [place] (Tiotropium [place] 18 Mcg Cap.W.Dev) 1 puff INHALE RDAILY [facility] Last Admin: 04/10/21 07:30 Dose: Not Given Documented by: CLAUDIA Non-Admin Reason: Med Not Available Labs CBC & Chem 7: 04/09/21 06:20 04/10/21 09:14 Labs: Laboratory Results - last 24 hr 04/09/21 04/09/21 04/10/21 16:10 20:45 06:12 Anion Gap 18 Estim Creat Clear Calc 35.4 Estimated GFR 38 POC Glucose 186 H 227 H Random Glucose 284 H Calcium 9.4 Magnesium 2.7 H 04/10/21 04/10/21 04/10/21 07:17 09:14 11:16 Anion Gap 13 Estim Creat Clear Calc 34.4 Estimated GFR 36 POC Glucose 264 H 295 H Random Glucose 375 H* Calcium 9.4 Magnesium Assessment and Plan (1) Acute respiratory failure with hypoxia: Status: Acute (2) COPD exacerbation: Status: Acute Assessment and Plan: hospital d#9 80yo F with COPD/asthma, HFpEF, AF, LILY, recent COVID-19 infection presented with dyspnea admitted for hypoxia due to CHF + COPD exacerbations # hyperK - no EKG changes - will give Lokelma - d/c spironolactone - will d/c spironolactone and halve dose of lisinopril 40->20 mg daily # acute hypoxic resp failure - resolved; does not qualify for home O2 # ADHF/khffl-sg-livokud HFpEF - BNP normalized and furosemide gtt discontinued; continue bumetanide - lisinopril as above; hold spironolactone as above - to consider outpt ischemic workup # COPD/asthma exacerbation - continue to wean IV steroids, continue tiotropium + Breo + prn nebs # LILY - continue CPAP # pAF - continue apixaban + diltiazem # HTN - continue lisinopril + diltiazem + bumetanide # RA - continue sulfasalazine # hypothyroidism - continue LT4 # DM2 with steroid-induced hyperglycemia - increased Lantus + Humalog doses # mood disorder - continue sertraline # VTE ppx - apixaban # dispo - anticipate home with VNA likely tomorrow Quality Stroke Does the patient have a stroke diagnosis?: No VTE Prior VTE?: No VTE Risk Level:: Medical - moderate - high VTE Device Contraindication: Treatment Not Indicated VTE Drug Contraindication: N/A - Med Ordered
[2021-04-10 16:07] LABS: Glucose, Whole Blood 181 mg/dL (60-115)
[2021-04-10] MEDS: Gabapentin 300 MG CAPSULE PO (20:10)
[2021-04-10 20:35] LABS: Glucose, Whole Blood 169 mg/dL (60-115)
[2021-04-10] MEDS: methylPREDNISolone Sod Succ 40 MG/ML VIAL IVPUSH (20:47)
[2021-04-11] VITALS (11 sets, daily range): BP systolic 115–141; BP diastolic 55–69; PULSE 74–102; RESP 18–20; TEMP 35.5–37.1; O2SAT 93–98
[2021-04-11] MEDS: 0.9 % Sodium Chloride Flush 3 ML SYRINGE IVFLUSH ×2 (01:01→07:35)
[2021-04-11] MEDS: Omeprazole 20 MG CAPSULE.DR PO (05:53)
[2021-04-11] MEDS: Levothyroxine Sodium 50 MCG TABLET PO (05:53)
[2021-04-11 07:08] LABS: Anion Gap 16 (12-20); Blood Urea Nitrogen 75 mg/dL (9-16); Calcium 9.1 mg/dL (8.4-10.2); Carbon Dioxide 33 mmol/L (22-29); Chloride 89 mmol/L (96-108); Creatinine Clr Calc Pharmacy 34.7; Estimated Glomerular Filt Rate 37; Glucose Random 303 mg/dL (60-115); Potassium 5.2 mmol/L (3.3-5.1); Sodium 133 mmol/L (135-145)
[2021-04-11 07:19] LABS: Glucose, Whole Blood 294 mg/dL (60-115)
[2021-04-11] MEDS: Albuterol/Iprat 2.5/0.5MG 3 ML AMPUL.NEB INHALE ×3 (07:32→15:41)
[2021-04-11] MEDS: Fluticasone/Vilanterol 200/25 BLST.W.DEV 1 PUFF INHALE (07:32)
[2021-04-11] MEDS: Insulin Lispro 100 UNIT/ML 3 ML VIAL SUBCUT ×3 (07:34→16:25)
[2021-04-11] MEDS: lisinopriL 20 MG TABLET PO (07:35)
[2021-04-11] MEDS: Folic Acid 1 MG TABLET PO (07:35)
[2021-04-11] MEDS: Apixaban 5 MG TABLET PO (07:35)
[2021-04-11] MEDS: Sertraline HCL 50 MG TABLET PO (07:36)
[2021-04-11] MEDS: Ascorbic Acid 500 MG TABLET PO (07:36)
[2021-04-11] MEDS: Bumetanide 1 MG TABLET 2 MG PO ×2 (07:36→15:54)
[2021-04-11] MEDS: dilTIAZem HCL CD 240 MG CAP.ER.DEG PO (07:36)
[2021-04-11 11:22] LABS: Glucose, Whole Blood 270 mg/dL (60-115)
[2021-04-11] MEDS: sulfaSALAzine 500 MG TABLET PO (13:01)
--- NOTE | 2021-04-11 13:19 | MHC.CM.PN ---
met with pt who does not want mto go to rehab wants to go home with home pt ,thomas gutierres
--- NOTE | 2021-04-11 15:13 | P.DS_ITS ---
DS: Providers Provider Date of Service: 04/11/21 Date of admission: 04/02/21 22:44 Primary care physician: Salud Lester MD Consults: 04/02/21 22:55 Consult to Cardiology Routine Consulting Provider: Kenny Sutton Reason for consultation: CHF Has provider been notified: No 04/03/21 11:06 Consult to Pulmonology Routine Consulting Provider: No Tristan Reason for consultation: Query home O2 DS: Diagnosis Discharge Diagnosis (1) Acute respiratory failure with hypoxia: Status: Acute (2) COPD exacerbation: Status: Acute (3) Hyperkalemia: Status: Acute (4) Acute on chronic diastolic (congestive) heart failure: Status: Acute (5) CKD (chronic kidney disease) stage 3, GFR 30-59 ml/min: Status: Acute DS: Summary Hospital Course Hospital Course: from admission H+P, 04/02/21, by hospitalist Bernardo Sanchez MD: This is an 80-year-old female with past medical history of heart failure preserved ejection fraction, AFib, COPD, depression, diabetes, HLD, HTN, obesity, history of pulmonary emboli, and rheumatoid arthritis among other medical diseases who presents to the hospital with complaints of shortness of breath, hypoxia at wound clinic.? Patient was at her wound clinic today when she developed significant shortness of breath, found to be hypoxic with O2 levels down to the high 70s and therefore sent to the hospital for further management.? According to the patient she has been having shortness of breath for the past 2 weeks progressively worsened.? She also has worsening lower extremity edema, she has orthopnea PND.? She is also experiencing a cough increased from her baseline, as well as sputum production.? She denies any fever, no chill, no abdominal pain nausea or vomiting, no diarrhea constipation, no urinary symptoms, no numbness tingling. On arrival to the ED patient found to have temp of 97.6?, respiratory rate of 18, satting 90% on room air, plates on 2 L of oxygen satting 93%. Of note patient recovered from COVID-19 pneumonia back in January but is not on baseline oxygen. Patient was also seen by Cardiology on 02/28, patient on baseline Lasix but was switched to Bumex at that time, reports that she took Bumex yesterday but it did not make her feel well, caused her palpitations and dizziness and therefore would like to go back to her Lasix. Labs are significant for WBC count of 5.6, PT of 16.2 INR of 1.4, troponin of 20.6 repeat 20.9, BNP of 201, UA negative. Chest x-ray shows CHF Patient will be admitted for further management This 80 year-old woman with COPD/asthma, HFpEF, AF, LILY, and recent COVID-19 infection presented with dyspnea and was admitted to the [facility] for hypoxia due to CHF + COPD exacerbations. Hospital course by problem: # acute hypoxic resp failure - She was treated with supplemental oxygen and slowly weaned completely off as her volume and pulmonary status improved. She did not qualify for home oxygen. # /[id number]-fnfuriv HFpEF [diastolic CHF] - She was diuresed with furosemide infusion and transitioned back to oral bumetanide. She was seen by Cardiology and outpatient ischemic workup may be considered once her respiratory status has improved sufficiently; she will need follow-up in their clinic in 1-2 weeks. # COPD/asthma exacerbation - She was seen by her business resiliency manager. She was treated with a prolonged course of steroids and was discharged on a slow prednisone taper. She will need follow-up in 1-2 weeks with her business resiliency manager. Unfortunately, recent COVID-19 infection has made her respiratory status more tenuous and recovery is expected to be prolonged. # hyperkalemia - No EKG changes. She was given Lokelma. Spironolactone was discontinued and lisinopril dose was decreased from 40 to 20 mg daily. A repeat BMP should be done on 04/14/21. # CKD3 - She has some degree of renal insufficiency and it appears that new baseline SCr is around 1.3, corresponding to CKD stage 3b. Nephrotoxins such as NSAIDs should be avoided and outpatient Nephrology referral should be considered. # LILY - She should continue CPAP at night and for naps. The patient was discharged home with VNA services; she also has [facility] services. Short-term rehabilitation was declined by the patient. Time Spent with Patient Time attestation: Total time spent providing and/or coordinating discharge services: Discharge coordination time: Greater than 30 minutes Quality: Stroke Does the patient have a stroke diagnosis?: No Physical Exam Vital Signs: Vital Signs: Last Vital Signs Temp 98.6 F 04/11/21 11:08 Pulse 98 04/11/21 11:54 Resp 19 04/11/21 11:08 BP 117/57 L 04/11/21 11:54 Pulse Ox 94 04/11/21 11:54 Oxygen Flow Rate 2 04/02/21 14:46 Body Mass Index 40.2 Gen: in no acute distress HEENT: sclera anicteric, moist mucus membranes Neck: supple, no JVD Lungs: scattered expiratory wheezing Heart: irregularly irregular, no murmurs Abd: soft, non-tender, non-distended, obese Ext: 1+ bilateral edema, stockings in place Skin: warm/well-perfused Neuro: alert and oriented x3, no focal findings Psych: appropriate affect DS: Data Data Completed and Pending Completed studies during hospitalization [Text1]: Laboratory Results WBC 9.6 X10*3/uL (4.8-10.8) 04/09/21 06:20 RBC 4.74 X10*6/uL (4.20-5.50) 04/09/21 06:20 Hgb 14.4 g/dl (12.0-16.0) 04/09/21 06:20 Hct 45.4 % (37.0-47.0) 04/09/21 06:20 MCV 95.8 fL (80.0-98.0) 04/09/21 06:20 MCH 30.4 pg (27.0-33.0) 04/09/21 06:20 MCHC 31.7 g/dl (31.0-35.0) 04/09/21 06:20 RDW 14.6 % (11.0-16.0) 04/09/21 06:20 Plt Count 225 X10*3/uL (160-400) 04/09/21 06:20 MPV 12.0 fL (9.4-12.3) 04/09/21 06:20 Immature Gran % (Auto) 1.4 % (0.0-0.4) H 04/09/21 06:20 Neut % (Auto) 84.6 % (45-73) H 04/09/21 06:20 Lymph % (Auto) 10.2 % (20-40) L 04/09/21 06:20 [place] % (Auto) 3.7 % (2-11) 04/09/21 06:20 Eos % (Auto) 0.0 % (0-4) 04/09/21 06:20 Baso % (Auto) 0.1 % (0-2) 04/09/21 06:20 Lymph # (Auto) 1.0 X10*3/uL (1.2-4.9) L 04/09/21 06:20 [place] # (Auto) 0.4 X10*3/uL (0.1-1.2) 04/09/21 06:20 Eos # (Auto) 0.0 X10*3/uL (0.0-0.4) 04/09/21 06:20 Baso # (Auto) 0.0 X10*3/uL (0.0-0.2) 04/09/21 06:20 Abs Immat Gran (auto) 0.13 X10*3/uL (0.00-0.03) H 04/09/21 06:20 Absolute Neuts (auto) 8.1 x10*3/uL (2.0-8.3) 04/09/21 06:20 Absolute Nucleated RBC 0.000 X10*3/uL (0.0-0.012) 04/09/21 06:20 Nucleated RBC % (auto) 0.0 /100WBC (0.0-0.2) 04/09/21 06:20 PT 16.2 SEC (9.9-13.0) H 04/02/21 21:10 INR 1.4 (0.9-1.1) H 04/02/21 21:10 APTT 41.5 SEC (24.1-38.0) H 04/02/21 21:10 Sodium 133 mmol/L (135-145) L 04/11/21 05:57 Potassium 5.2 mmol/L (3.3-5.1) H 04/11/21 05:57 Chloride 89 mmol/L (96-108) L 04/11/21 05:57 Carbon Dioxide 33 mmol/L (22-29) H 04/11/21 05:57 Anion Gap 16 (12-20) 04/11/21 05:57 BUN 75 mg/dL (9-16) H 04/11/21 05:57 Creatinine 1.38 mg/dL (0.5-1.4) 04/11/21 05:57 Estim Creat Clear Calc 34.7 04/11/21 05:57 Estimated GFR 37 04/11/21 05:57 POC Glucose 270 mg/dL (60-115) H 04/11/21 11:10 Random Glucose 303 mg/dL (60-115) H 04/11/21 05:57 Fasting Glucose 281 mg/dL (60-99) H 04/09/21 06:20 Estimat Average Glucose 151 mg/dL 04/08/21 06:33 Hemoglobin A1c % 6.9 % 04/08/21 06:33 Calcium 9.1 mg/dL (8.4-10.2) 04/11/21 05:57 Magnesium 2.7 mg/dL (1.6-2.6) H 04/10/21 06:12 Total Bilirubin 0.7 mg/dL (0.0-1.0) 04/09/21 06:20 AST 18 U/L (5-31) 04/09/21 06:20 ALT 40 U/L (0-31) H 04/09/21 06:20 Alkaline Phosphatase 77 U/L (39-117) 04/09/21 06:20 Troponin I High Sens 20.9 ng/L (<3.5-17.0) H* 04/02/21 22:56 B-Natriuretic Peptide 52 pg/mL (<100) 04/09/21 06:20 Total Protein 7.0 g/dL (6.5-8.0) 04/09/21 06:20 Albumin 3.9 g/dL (3.5-5.0) 04/09/21 06:20 Procalcitonin 0.03 ng/mL 04/07/21 06:21 TSH 2.37 uIU/mL (0.32-4.0) 04/07/21 06:21 Urine Color YELLOW 04/02/21 17:36 Urine Appearance CLEAR 04/02/21 17:36 Urine pH 6.0 (5.0-8.0) 04/02/21 17:36 Ur Specific [place] 1.010 (1.005-1.025) 04/02/21 17:36 Urine Protein NEG MG/DL (NEG-TRACE) 04/02/21 17:36 Urine Glucose (UA) NEG MG/DL (NEG) 04/02/21 17:36 Urine Ketones NEG MG/DL (NEG) 04/02/21 17:36 Urine Blood NEG (NEG) 04/02/21 17:36 Urine Nitrite NEG (NEG) 04/02/21 17:36 Ur Leukocyte Esterase NEG (NEG) 04/02/21 17:36 COVID-19 (YASIR) Negative (Negative) 04/02/21 21:13 COVID-19 Clin Com See Note 04/02/21 21:13 Impressions Chest X-Ray 04/02/21 16:06 IMPRESSION: Enlarged cardiac silhouette and question mild CHF. Findings are similar to recent exam March 27 2021.. Discharge Plan Discharge Patient Disposition: Home Health Service Discharge Diagnosis: hyperkalemia, acute hypoxia, CHF exacerbation, COPD/asthma exacerbation, CKD3 Referrals: charity [Other] - 1 Week No Tristan MD [Physician] - 1 Week Salud Lester MD [Primary Care Provider] - 1 Week Kenny Sutton MD [Physician] - 1 Week Discharge Medications: New lisinopril 20 mg Tablet 20 mg PO DAILY Qty: 30 RF: 0 prednisone 10 mg tablet See Rx Instructions .ROUTE .COMPLEX Qty: 26 RF: 0 Continued glipizide 5 mg tablet 5 mg PO DAILY Qty: 90 RF: 3 albuterol sulfate 0.63 mg/3 mL solution for nebulization 0.63 mg inhalation Q4-6H PRN (Reason: shortness of breath or wheezing) Qty: 90 RF: 3 meclizine 25 mg tablet 25 mg PO DAILY PRN (Reason: dizziness) Qty: 30 RF: 1 sertraline 50 mg tablet 50 mg PO DAILY Qty: 90 RF: 3 Incruse Ellipta 62.5 mcg/actuation blister with device 1 inh PO DAILY Qty: 30 RF: 6 budesonide-formoterol 160-4.5 mcg/actuation HFA aerosol inhaler 1 puff inhalation BID Qty: 10.2 RF: 6 albuterol sulfate 90 mcg/actuation HFA aerosol inhaler 2 puff inhalation Q4H PRN (Reason: Wheezing) RF: 0 sulfasalazine 500 mg tablet 1 tab PO DAILY@1300 RF: 0 levothyroxine 50 mcg tablet 50 mcg PO DAILY@0630 RF: 0 pantoprazole 40 mg tablet,delayed release (DR/EC) 40 mg PO DAILY@0600 RF: 0 gabapentin 300 mg capsule 300 mg PO BEDTIME RF: 0 acetaminophen 500 mg Tablet 1,000 mg PO BID RF: 0 garlic 500 mg Tablet 500 mg PO DAILY RF: 0 (DME) blood-glucose meter Kit See Rx Instructions ea Not Applicable BID Qty: 1 RF: 0 (DME) blood sugar diagnostic Strip See Rx Instructions ea Not Applicable BID Qty: 10 RF: 0 diltiazem HCl 240 mg capsule,ext.rel 24h degradable 240 mg PO DAILY RF: 0 Eliquis 5 mg tablet 5 mg PO BID Qty: 180 RF: 3 folic acid 1 mg tablet 1 mg PO DAILY Qty: 90 RF: 3 ascorbic acid (vitamin C) 500 mg tablet 500 mg PO DAILY RF: 0 bumetanide 2 mg tablet 2 mg PO BID Qty: 60 RF: 2 Discontinued lisinopril 40 mg tablet 40 mg PO DAILY Qty: 90 RF: 3 meloxicam 15 mg Tablet 15 mg PO DAILY PRN (Reason: Pain) RF: 0 spironolactone [Aldactone] 25 mg tablet 25 mg PO DAILY Qty: 30 RF: 3 Discharge Orders: Discharge Order (Routine); Ordered 04/11/21 Ordered By: Terese Mcghee Diet: advance to usual diet and diabetic diet Activity on Discharge: As tolerated Stand Alone Forms: Patient Portal Discharge page Other Ambulatory Orders: Basic Metabolic Panel (Routine) Timeframe: 3 Days Facility: [facility] - Location: Laboratory Ordered By: Terese Mcghee Care Plan Goals: prevention of high potassium improved breathing cardiac health Health Concerns: hyperkalemia, acute hypoxia, CHF exacerbation, COPD/asthma exacerbation, CKD3 Plan of Treatment: STOP spironolactone; DECREASE lisinopril from 40 mg to 20 mg daily; REPEAT BMP [non-fasting basic metabolic panel] on 04/14/21 oxygen requirement resolved CONTINUE bumetanide TAKE prednisone taper as follows: 30 mg daily x 4 days, 20 mg daily x 4 days, 10 mg daily x 4 days, 5 mg daily x 4 days request outpatient referral to nephrology. STOP NSAIDs such as meloxicam, naproxen, and ibuprofen Assessment: See Discharge Summary
--- NOTE | 2021-04-11 15:17 | MHC.CM.PN ---
pt dcd today family has chosen charity [facility] as their agencey
[2021-04-11 16:08] LABS: Glucose, Whole Blood 175 mg/dL (60-115)
== END 2021-04-11 17:33 | disposition home health service (06) | DRG 291 ==
LOC: HO.ED 20:21 → HO.EDOVER 22:50 → HO.IMC 04-03 05:23
PROVIDERS: Hospitalist; Nurse Practitioner Family; Admitting Provider Internal Medicine; Emergency Provider Internal Medicine; PCP Internal Medicine; Visit Provider Family Medicine
DX: I13.0 Hypertensive heart and chronic kidney disease with heart failure and stage 1 through stage 4 chronic kidney disease, or unspecified chronic kidney disease (principal); J96.01 Acute respiratory failure with hypoxia; I50.33 Acute on chronic diastolic (congestive) heart failure; J44.1 Chronic obstructive pulmonary disease with (acute) exacerbation; Z68.41 Body mass index [BMI] 40.0-44.9, adult; I48.20 Chronic atrial fibrillation, unspecified; J45.901 Unspecified asthma with (acute) exacerbation; F39 Unspecified mood [affective] disorder; M06.9 Rheumatoid arthritis, unspecified; N18.30 Chronic kidney disease, stage 3 unspecified; E11.22 Type 2 diabetes mellitus with diabetic chronic kidney disease; E03.9 Hypothyroidism, unspecified; E66.01 Morbid (severe) obesity due to excess calories; G47.33 Obstructive sleep apnea (adult) (pediatric); E87.5 Hyperkalemia; Z20.822 Contact with and (suspected) exposure to COVID-19; Z99.81 Dependence on supplemental oxygen; Z99.89 Dependence on other enabling machines and devices; Z86.16 Personal history of COVID-19; Z86.711 Personal history of pulmonary embolism; Z79.01 Long term (current) use of anticoagulants; Z79.890 Hormone replacement therapy; Z79.899 Other long term (current) drug therapy
CPT/HCPCS: 36415; 71046; 78452; 80048; 80053; 81003; 82947; 83036; 83735; 83880; 84145; 84443; 84484; 85025; 85610; 85730; 87635; 93005; 94640; 94660; 96374; 97116; 97162; 99202; 99285; A9500; J0696; J1940; J2920

== ENCOUNTER 2021-04-14 08:30 | Outpatient (REF) | payer MEDICARE, MEDICAID, SELFPAY ==
[2021-04-14 12:06] LABS: Anion Gap 17 (12-20); Blood Urea Nitrogen 69 mg/dL (9-16); Calcium 8.7 mg/dL (8.4-10.2); Carbon Dioxide 28 mmol/L (22-29); Chloride 94 mmol/L (96-108); Estimated Glomerular Filt Rate 42; Glucose Random 267 mg/dL (60-115); Sodium 135 mmol/L (135-145)
[2021-04-14 12:10] LABS: B Type Natriuretic Peptide 116 pg/mL (<100)
== END 2021-04-14 08:31 | disposition home or self-care (01) ==
LOC: HO.HMGCLDS 08:30
PROVIDERS: Internal Medicine Cardiovascular Disease; PCP Internal Medicine; Visit Provider Family Medicine
DX: E87.5 Hyperkalemia (principal); R06.02 Shortness of breath
CPT/HCPCS: 36415; 80048; 83880

== ENCOUNTER 2021-04-30 08:32 | Outpatient (REF) | payer MEDICARE, MEDICAID, SELFPAY ==
[2021-04-30 10:46] LABS: Anion Gap 14 (12-20); Calcium 9.4 mg/dL (8.4-10.2); Carbon Dioxide 25 mmol/L (22-29); Chloride 99 mmol/L (96-108); Estimated Glomerular Filt Rate 20; Glucose Random 189 mg/dL (60-115); Potassium 5.2 mmol/L (3.3-5.1); Sodium 133 mmol/L (135-145)
[2021-04-30 10:49] LABS: B Type Natriuretic Peptide 206 pg/mL (<100)
[2021-04-30 11:01] LABS: Blood Urea Nitrogen 132 mg/dL (9-16)
== END 2021-04-30 08:33 | disposition home or self-care (01) ==
LOC: HO.LAB 08:32
PROVIDERS: PCP Internal Medicine; Referring Provider Internal Medicine; Visit Provider Internal Medicine Cardiovascular Disease
DX: I50.23 Acute on chronic systolic (congestive) heart failure (principal); I48.91 Unspecified atrial fibrillation; Z79.899 Other long term (current) drug therapy
CPT/HCPCS: 36415; 80048; 83880; 99212

== ENCOUNTER 2021-05-07 08:50 | Outpatient (REF) | payer MEDICARE, MEDICAID, SELFPAY ==
[2021-05-07 11:49] LABS: B Type Natriuretic Peptide 144 pg/mL (<100)
[2021-05-07 11:59] LABS: Anion Gap 15 (12-20); Blood Urea Nitrogen 97 mg/dL (9-16); Calcium 9.6 mg/dL (8.4-10.2); Carbon Dioxide 28 mmol/L (22-29); Chloride 97 mmol/L (96-108); Estimated Glomerular Filt Rate 18; Glucose Random 130 mg/dL (60-115); Potassium 4.2 mmol/L (3.3-5.1); Sodium 136 mmol/L (135-145)
== END 2021-05-07 08:51 | disposition home or self-care (01) ==
LOC: HO.HMGCLDS 08:50
PROVIDERS: PCP Internal Medicine; Visit Provider Internal Medicine Cardiovascular Disease
DX: R06.02 Shortness of breath (principal); I50.32 Chronic diastolic (congestive) heart failure
CPT/HCPCS: 36415; 80048; 83880

== ENCOUNTER 2021-05-09 14:36 | Outpatient (RCR) | payer MEDICARE, MEDICAID, SELFPAY | END 2021-06-17 13:36 | disposition home or self-care (01) | LOC: HO.WCC 14:36 | PROVIDERS: PCP Internal Medicine; Visit Provider Physician Assistant | DX: I87.332 Chronic venous hypertension (idiopathic) with ulcer and inflammation of left lower extremity (principal); L97.822 Non-pressure chronic ulcer of other part of left lower leg with fat layer exposed; I87.321 Chronic venous hypertension (idiopathic) with inflammation of right lower extremity; Z79.899 Other long term (current) drug therapy | CPT/HCPCS: 11042; 99212 ==

== ENCOUNTER 2021-05-16 06:50 | Outpatient (REF) | payer MEDICARE, MEDICAID, SELFPAY ==
[2021-05-16 11:47] LABS: Anion Gap 13 (12-20); Blood Urea Nitrogen 36 mg/dL (9-16); Calcium 9.8 mg/dL (8.4-10.2); Carbon Dioxide 34 mmol/L (22-29); Chloride 97 mmol/L (96-108); Estimated Glomerular Filt Rate 42; Glucose Random 107 mg/dL (60-115); Potassium 4.4 mmol/L (3.3-5.1); Sodium 140 mmol/L (135-145)
== END 2021-05-16 06:51 | disposition home or self-care (01) ==
LOC: HO.HMGCLDS 06:50
PROVIDERS: Internal Medicine Cardiovascular Disease; PCP Internal Medicine; Visit Provider Internal Medicine
DX: I50.23 Acute on chronic systolic (congestive) heart failure (principal)
CPT/HCPCS: 36415; 80048

== ENCOUNTER → 2021-05-28 13:39 | Outpatient (BNVA) | payer MEDICARE, MEDICAID, SELFPAY | PROVIDERS: PCP Internal Medicine; Referring Provider Internal Medicine; Visit Provider Nurse Practitioner Family | DX: I50.23 Acute on chronic systolic (congestive) heart failure (principal); I48.91 Unspecified atrial fibrillation | CPT/HCPCS: 99212 ==

== ENCOUNTER 2021-06-10 08:42 | Outpatient (REF) | payer MEDICARE, MEDICAID, SELFPAY ==
[2021-06-10 11:58] LABS: Hematocrit 41.7 % (37.0-47.0); Hemoglobin 12.7 g/dl (12.0-16.0); Mean Corpuscular HGB Conc 30.5 g/dl (31.0-35.0); Mean Corpuscular Hemoglobin 30.4 pg (27.0-33.0); Mean Corpuscular Volume 99.8 fL (80.0-98.0); Mean Platelet Volume 11.7 fL (9.4-12.3); Platelet Count 204 X10*3/uL (160-400); Red Blood Count 4.18 X10*6/uL (4.20-5.50); Red Cell Distribution Width 12.9 % (11.0-16.0); White Blood Count 6.7 X10*3/uL (4.8-10.8)
[2021-06-10 12:11] LABS: B Type Natriuretic Peptide 113 pg/mL (<100)
[2021-06-10 12:23] LABS: Anion Gap 13 (12-20); Blood Urea Nitrogen 24 mg/dL (9-16); Carbon Dioxide 40 mmol/L (22-29); Chloride 93 mmol/L (96-108); Estimated Glomerular Filt Rate 58; Glucose Random 127 mg/dL (60-115); Potassium 4.2 mmol/L (3.3-5.1); Sodium 142 mmol/L (135-145)
== END 2021-06-10 08:43 | disposition home or self-care (01) ==
LOC: HO.HMGCLDS 08:42
PROVIDERS: Nurse Practitioner Family; PCP Internal Medicine; Visit Provider Internal Medicine
DX: I48.91 Unspecified atrial fibrillation (principal); N18.30 Chronic kidney disease, stage 3 unspecified; I50.30 Unspecified diastolic (congestive) heart failure
CPT/HCPCS: 36415; 80048; 83880; 85027

== ENCOUNTER 2021-06-17 08:15 | Outpatient (REF) | payer MEDICARE, MEDICAID, SELFPAY ==
[2021-06-17 11:26] LABS: MANUAL DIFF FLAG NO
[2021-06-17 11:30] LABS: Basophils Percent Auto 0.5 % (0-2); Eosinophils Absolute Auto 0.1 X10*3/uL (0.0-0.4); Eosinophils Percent Auto 1.3 % (0-4); Hematocrit 42.7 % (37.0-47.0); Hemoglobin 13.6 g/dl (12.0-16.0); Imm Gran Abs Auto 0.02 X10*3/uL (0.00-0.03); Imm Gran Pct Auto 0.3 % (0.0-0.4); Lymphocytes Absolute Auto 1.6 X10*3/uL (1.2-4.9); Lymphocytes Percent Auto 25.2 % (20-40); Mean Corpuscular HGB Conc 31.9 g/dl (31.0-35.0); Mean Corpuscular Volume 97.3 fL (80.0-98.0); Mean Platelet Volume 11.5 fL (9.4-12.3); Monocytes Absolute Auto 0.7 X10*3/uL (0.1-1.2); Monocytes Percent Auto 11.4 % (2-11); Neutrophils Absolute Auto 3.9 x10*3/uL (2.0-8.3); Neutrophils Percent Auto 61.3 % (45-73); Platelet Count 251 X10*3/uL (160-400); Red Blood Count 4.39 X10*6/uL (4.20-5.50); Red Cell Distribution Width 12.5 % (11.0-16.0); White Blood Count 6.4 X10*3/uL (4.8-10.8)
[2021-06-17 12:10] LABS: Erythrocyte Sedimentation Rate 38 MM/HR (0-20)
[2021-06-17 12:13] LABS: Alanine Aminotransferase 12 U/L (0-31); Albumin Level 4.2 g/dL (3.5-5.0); Anion Gap 18 (12-20); Aspartate Amino Transferase 18 U/L (5-31); C Reactive Protein 3.03 mg/dL (< or = 0.50); Carbon Dioxide 38 mmol/L (22-29); Chloride 87 mmol/L (96-108); Estimated Glomerular Filt Rate 46; Potassium 3.7 mmol/L (3.3-5.1); Rheumatoid Factor < 15.0 IU/mL (<15.0); Sodium 139 mmol/L (135-145)
[2021-06-17 12:29] LABS: Uric Acid 13.6 mg/dL (2.4-5.7)
[2021-06-21 23:26] LABS: Cyclic Citrullinated Peptide <16 UNITS
== END 2021-06-17 08:16 | disposition home or self-care (01) ==
LOC: HO.HMGCLDS 08:15
PROVIDERS: Absent Provider Internal Medicine; PCP Internal Medicine; Referring Provider Internal Medicine; Visit Provider Internal Medicine
DX: M06.9 Rheumatoid arthritis, unspecified (principal); I50.30 Unspecified diastolic (congestive) heart failure
CPT/HCPCS: 36415; 80051; 82040; 82565; 84450; 84460; 84550; 85025; 85652; 86140; 86200; 86431

== ENCOUNTER 2021-07-04 12:21 | Outpatient (REF) | payer MEDICARE, MEDICAID, SELFPAY ==
[2021-07-04 13:46] LABS: MANUAL DIFF FLAG NO
[2021-07-04 13:49] LABS: Basophils Percent Auto 0.3 % (0-2); Eosinophils Absolute Auto 0.1 X10*3/uL (0.0-0.4); Hematocrit 39.7 % (37.0-47.0); Hemoglobin 12.9 g/dl (12.0-16.0); Imm Gran Abs Auto 0.04 X10*3/uL (0.00-0.03); Imm Gran Pct Auto 0.4 % (0.0-0.4); Lymphocytes Absolute Auto 1.3 X10*3/uL (1.2-4.9); Mean Corpuscular HGB Conc 32.5 g/dl (31.0-35.0); Mean Corpuscular Hemoglobin 30.8 pg (27.0-33.0); Mean Corpuscular Volume 94.7 fL (80.0-98.0); Mean Platelet Volume 11.1 fL (9.4-12.3); Monocytes Percent Auto 9.3 % (2-11); Neutrophils Absolute Auto 7.9 x10*3/uL (2.0-8.3); Platelet Count 244 X10*3/uL (160-400); Red Blood Count 4.19 X10*6/uL (4.20-5.50); Red Cell Distribution Width 12.5 % (11.0-16.0); White Blood Count 10.3 X10*3/uL (4.8-10.8)
[2021-07-04 14:03] LABS: Alanine Aminotransferase 12 U/L (0-31); Alkaline Phosphatase 98 U/L (39-117); Anion Gap 16 (12-20); Aspartate Amino Transferase 19 U/L (5-31); Bilirubin Total 0.4 mg/dL (0.0-1.0); Blood Urea Nitrogen 106 mg/dL (9-16); Calcium 9.5 mg/dL (8.4-10.2); Carbon Dioxide 38 mmol/L (22-29); Chloride 83 mmol/L (96-108); Estimated Glomerular Filt Rate 28; Glucose Random 143 mg/dL (60-115); Potassium 4.8 mmol/L (3.3-5.1); Sodium 132 mmol/L (135-145); Total Protein 7.3 g/dL (6.5-8.0)
[2021-07-04 14:16] LABS: B Type Natriuretic Peptide 219 pg/mL (<100)
== END 2021-07-04 12:22 | disposition home or self-care (01) ==
LOC: HO.HMGCLDS 12:21
PROVIDERS: Visit Provider Internal Medicine
DX: I50.30 Unspecified diastolic (congestive) heart failure (principal); N18.30 Chronic kidney disease, stage 3 unspecified
CPT/HCPCS: 36415; 80053; 83880; 85025

== ENCOUNTER 2021-07-10 08:53 | Outpatient (REF) | payer MEDICARE, MEDICAID, SELFPAY ==
[2021-07-10 11:42] LABS: Anion Gap 14 (12-20); Blood Urea Nitrogen 38 mg/dL (9-16); Calcium 9.9 mg/dL (8.4-10.2); Carbon Dioxide 42 mmol/L (22-29); Chloride 86 mmol/L (96-108); Estimated Glomerular Filt Rate 49; Glucose Random 131 mg/dL (60-115); Potassium 3.5 mmol/L (3.3-5.1); Sodium 138 mmol/L (135-145)
== END 2021-07-10 08:54 | disposition home or self-care (01) ==
LOC: HO.HMGCLDS 08:53
PROVIDERS: PCP Internal Medicine; Visit Provider Internal Medicine
DX: I50.30 Unspecified diastolic (congestive) heart failure (principal)
CPT/HCPCS: 36415; 80048

== ENCOUNTER 2021-07-28 07:53 | Outpatient (REF) | payer MEDICARE, MEDICAID, SELFPAY ==
[2021-07-28 12:14] LABS: Anion Gap 16 (12-20); Blood Urea Nitrogen 27 mg/dL (9-16); Calcium 9.8 mg/dL (8.4-10.2); Carbon Dioxide 34 mmol/L (22-29); Chloride 93 mmol/L (96-108); Estimated Glomerular Filt Rate 60; Glucose Random 122 mg/dL (60-115); Potassium 3.1 mmol/L (3.3-5.1); Sodium 140 mmol/L (135-145)
== END 2021-07-28 07:54 | disposition home or self-care (01) ==
LOC: HO.HMGCLDS 07:53
PROVIDERS: Visit Provider Internal Medicine
DX: I50.30 Unspecified diastolic (congestive) heart failure (principal)
CPT/HCPCS: 36415; 80048

== ENCOUNTER 2021-08-06 09:00 | Outpatient (REF) | payer MEDICARE, MEDICAID, SELFPAY ==
[2021-08-06 11:58] LABS: Anion Gap 12 (12-20); Blood Urea Nitrogen 26 mg/dL (9-16); Carbon Dioxide 37 mmol/L (22-29); Chloride 97 mmol/L (96-108); Estimated Glomerular Filt Rate > 60; Glucose Random 138 mg/dL (60-115); Potassium 3.9 mmol/L (3.3-5.1); Sodium 142 mmol/L (135-145)
== END 2021-08-06 09:01 | disposition home or self-care (01) ==
LOC: HO.HMGCLDS 09:00
PROVIDERS: PCP Internal Medicine; Visit Provider Internal Medicine
DX: E87.6 Hypokalemia (principal)
CPT/HCPCS: 36415; 80048

== ENCOUNTER 2021-08-29 09:01 | Outpatient (REF) | payer MEDICARE, MEDICAID, SELFPAY ==
[2021-08-29 11:57] LABS: Anion Gap 15 (12-20); Blood Urea Nitrogen 20 mg/dL (9-16); Carbon Dioxide 35 mmol/L (22-29); Chloride 94 mmol/L (96-108); Estimated Glomerular Filt Rate 51; Glucose Random 167 mg/dL (60-115); Potassium 3.6 mmol/L (3.3-5.1); Sodium 140 mmol/L (135-145)
== END 2021-08-29 09:02 | disposition home or self-care (01) ==
LOC: HO.HMGCLDS 09:01
PROVIDERS: Visit Provider Internal Medicine
DX: E87.6 Hypokalemia (principal)
CPT/HCPCS: 36415; 80048

== ENCOUNTER 2021-09-30 13:58 | Outpatient (REF) | payer MEDICARE, MEDICAID, SELFPAY ==
--- NOTE | ~2021-09-30 | XR_ITS ---
EXAMINATION: XR ANKLE, RIGHT CLINICAL INFORMATION: Pain right ankle and right joint. COMPARISON: None TECHNIQUE: AP, lateral, and mortise views of the right ankle. FINDINGS: There is talocalcaneal cuboid and cuneiform fusion of the hindfoot. There is an old fracture tip of medial and lateral malleoli. There is bimalleolar soft tissue swelling. There is diffuse osteopenia. The ankle mortise is normal. The subtalar joint is fused. XR/XR ankle RT 2V IMPRESSION: Fused hindfoot with hardware. There is trimalleolar soft tissue swelling. Subtalar joint is fused.
[2021-09-30 16:31] LABS: Hematocrit 39.9 % (37.0-47.0); Hemoglobin 12.5 g/dl (12.0-16.0); Mean Corpuscular HGB Conc 31.3 g/dl (31.0-35.0); Mean Corpuscular Hemoglobin 29.8 pg (27.0-33.0); Mean Corpuscular Volume 95.2 fL (80.0-98.0); Mean Platelet Volume 10.7 fL (9.4-12.3); Platelet Count 313 X10*3/uL (160-400); Red Blood Count 4.19 X10*6/uL (4.20-5.50); Red Cell Distribution Width 14.4 % (11.0-16.0); White Blood Count 8.1 X10*3/uL (4.8-10.8)
[2021-09-30 16:32] LABS: Appearance Urine CLEAR; Color Urine YELLOW; Glucose Urine UA NEG (NEG); Leukocyte Esterase Urine NEG (NEG); Nitrite Urine NEG (NEG); PH 6.5 (5.0-8.0); Specific Gravity - Urine <= 1.005 (1.005-1.025); Urine Blood NEG (NEG); Urine Ketones NEG (NEG); Urine Protein NEG (NEG-TRACE)
[2021-09-30 16:40] LABS: Estimated Average Glucose 131 mg/dL; Hemoglobin A1c % 6.2 %; Total Hemoglobin (HGBA1C) 3348.2048 umol/L
[2021-09-30 16:45] LABS: Alanine Aminotransferase 6 U/L (0-31); Alkaline Phosphatase 87 U/L (39-117); Anion Gap 16 (12-20); Aspartate Amino Transferase 15 U/L (5-31); Bilirubin Total 0.6 mg/dL (0.0-1.0); Blood Urea Nitrogen 28 mg/dL (9-16); Calcium 10.3 mg/dL (8.4-10.2); Carbon Dioxide 35 mmol/L (22-29); Chloride 94 mmol/L (96-108); Estimated Glomerular Filt Rate 54; Glucose Random 62 mg/dL (60-115); Potassium 3.9 mmol/L (3.3-5.1); Sodium 141 mmol/L (135-145); Total Protein 7.4 g/dL (6.5-8.0)
== END 2021-09-30 13:59 | disposition home or self-care (01) ==
LOC: HO.HMGCX 13:58
PROVIDERS: PCP Internal Medicine; Visit Provider Internal Medicine
DX: M25.571 Pain in right ankle and joints of right foot (principal); M06.9 Rheumatoid arthritis, unspecified; J44.9 Chronic obstructive pulmonary disease, unspecified; N18.30 Chronic kidney disease, stage 3 unspecified; E11.9 Type 2 diabetes mellitus without complications
CPT/HCPCS: 36415; 73600; 80053; 81003; 83036; 85027

== ENCOUNTER 2022-02-12 07:36 | Outpatient (REF) | payer MEDICARE, MEDICAID, SELFPAY ==
[2022-02-12 10:39] LABS: B Type Natriuretic Peptide 203 pg/mL (<100)
[2022-02-12 11:42] LABS: Alanine Aminotransferase 12 U/L (0-31); Albumin Level 4.2 g/dL (3.5-5.0); Alkaline Phosphatase 96 U/L (39-117); Anion Gap 15 (12-20); Aspartate Amino Transferase 17 U/L (5-31); Bilirubin Total 0.5 mg/dL (0.0-1.0); Blood Urea Nitrogen 19 mg/dL (9-16); Calcium 10.1 mg/dL (8.4-10.2); Carbon Dioxide 35 mmol/L (22-29); Chloride 98 mmol/L (96-108); Cholesterol 262 mg/dL; Estimated Glomerular Filt Rate > 60; Glucose Fasting 121 mg/dL (60-99); HDL Cholesterol 40 mg/dL; LDL Cholesterol Calculated 183 mg/dl; Potassium 4.5 mmol/L (3.3-5.1); Sodium 143 mmol/L (135-145); Total Protein 7.5 g/dL (6.5-8.0); Triglycerides 199 mg/dL
[2022-02-12 11:53] LABS: Estimated Average Glucose 126 mg/dL
== END 2022-02-12 07:37 | disposition home or self-care (01) ==
LOC: HO.HMGCLDS 07:36
PROVIDERS: PCP Internal Medicine; Visit Provider Internal Medicine
DX: I48.91 Unspecified atrial fibrillation (principal); I50.30 Unspecified diastolic (congestive) heart failure; N18.30 Chronic kidney disease, stage 3 unspecified; E11.9 Type 2 diabetes mellitus without complications
CPT/HCPCS: 36415; 80053; 80061; 83036; 83880

== ENCOUNTER 2022-05-28 07:45 | Outpatient (REF) | payer MEDICARE, MEDICAID, SELFPAY ==
[2022-05-28 11:14] LABS: MANUAL DIFF FLAG NO
[2022-05-28 11:16] LABS: Basophils Percent Auto 0.7 % (0-2); Eosinophils Absolute Auto 0.2 X10*3/uL (0.0-0.4); Eosinophils Percent Auto 2.8 % (0-4); Hematocrit 45.9 % (37.0-47.0); Hemoglobin 14.6 g/dl (12.0-16.0); Imm Gran Abs Auto 0.01 X10*3/uL (0.00-0.03); Imm Gran Pct Auto 0.2 % (0.0-0.4); Lymphocytes Absolute Auto 2.4 X10*3/uL (1.2-4.9); Lymphocytes Percent Auto 42.5 % (20-40); Mean Corpuscular HGB Conc 31.8 g/dl (31.0-35.0); Mean Corpuscular Hemoglobin 30.9 pg (27.0-33.0); Mean Platelet Volume 11.9 fL (9.4-12.3); Monocytes Absolute Auto 0.6 X10*3/uL (0.1-1.2); Monocytes Percent Auto 10.4 % (2-11); Neutrophils Absolute Auto 2.5 x10*3/uL (2.0-8.3); Neutrophils Percent Auto 43.4 % (45-73); Platelet Count 208 X10*3/uL (160-400); Red Blood Count 4.73 X10*6/uL (4.20-5.50); Red Cell Distribution Width 12.2 % (11.0-16.0); White Blood Count 5.7 X10*3/uL (4.8-10.8)
[2022-05-28 11:42] LABS: Creatinine Urine 28.58 mg/dL; Microalbumin Urine < 5.0 mg/L
[2022-05-28 11:50] LABS: Estimated Average Glucose 120 mg/dL; Hemoglobin A1c % 5.8 %
[2022-05-28 12:16] LABS: Alanine Aminotransferase 12 U/L (0-31); Albumin Level 4.2 g/dL (3.5-5.0); Alkaline Phosphatase 103 U/L (39-117); Anion Gap 11 (12-20); Aspartate Amino Transferase 17 U/L (5-31); Bilirubin Total 0.7 mg/dL (0.0-1.0); Blood Urea Nitrogen 19 mg/dL (9-16); Calcium 9.6 mg/dL (8.4-10.2); Carbon Dioxide 36 mmol/L (22-29); Chloride 99 mmol/L (96-108); Cholesterol 164 mg/dL; Estimated Glomerular Filt Rate > 60; Glucose Fasting 126 mg/dL (60-99); HDL Cholesterol 37 mg/dL; LDL Cholesterol Calculated 81 mg/dl; Potassium 3.8 mmol/L (3.3-5.1); Sodium 142 mmol/L (135-145); Total Protein 7.6 g/dL (6.5-8.0); Triglycerides 233 mg/dL
[2022-05-28 13:04] LABS: Free T4 (Free Thyroxine) 0.85 ng/dL (0.71-1.85)
== END 2022-05-28 07:46 | disposition home or self-care (01) ==
LOC: HO.HMGCLDS 07:45
PROVIDERS: PCP Internal Medicine; Visit Provider Internal Medicine
DX: E78.5 Hyperlipidemia, unspecified (principal); I13.0 Hypertensive heart and chronic kidney disease with heart failure and stage 1 through stage 4 chronic kidney disease, or unspecified chronic kidney disease; N18.30 Chronic kidney disease, stage 3 unspecified; I50.30 Unspecified diastolic (congestive) heart failure; E11.22 Type 2 diabetes mellitus with diabetic chronic kidney disease
CPT/HCPCS: 36415; 80053; 80061; 82043; 83036; 84439; 84443; 85025

== ENCOUNTER 2022-09-17 07:15 | Outpatient (REF) | payer MEDICARE, MEDICAID, SELFPAY ==
[2022-09-17 11:12] LABS: MANUAL DIFF FLAG NO
[2022-09-17 11:25] LABS: Basophils Percent Auto 0.7 % (0-2); Eosinophils Absolute Auto 0.1 X10*3/uL (0.0-0.4); Eosinophils Percent Auto 1.8 % (0-4); Hematocrit 43.3 % (37.0-47.0); Hemoglobin 13.9 g/dl (12.0-16.0); Imm Gran Abs Auto 0.01 X10*3/uL (0.00-0.03); Imm Gran Pct Auto 0.2 % (0.0-0.4); Lymphocytes Absolute Auto 1.8 X10*3/uL (1.2-4.9); Lymphocytes Percent Auto 32.5 % (20-40); Mean Corpuscular HGB Conc 32.1 g/dl (31.0-35.0); Mean Corpuscular Hemoglobin 31.9 pg (27.0-33.0); Mean Corpuscular Volume 99.3 fL (80.0-98.0); Mean Platelet Volume 11.8 fL (9.4-12.3); Monocytes Absolute Auto 0.5 X10*3/uL (0.1-1.2); Neutrophils Absolute Auto 3.1 x10*3/uL (2.0-8.3); Neutrophils Percent Auto 55.8 % (45-73); Platelet Count 192 X10*3/uL (160-400); Red Blood Count 4.36 X10*6/uL (4.20-5.50); Red Cell Distribution Width 12.5 % (11.0-16.0); White Blood Count 5.5 X10*3/uL (4.8-10.8)
[2022-09-17 11:50] LABS: Alanine Aminotransferase 14 U/L (0-31); Albumin Level 4.1 g/dL (3.5-5.0); Alkaline Phosphatase 90 U/L (39-117); Anion Gap 15 (12-20); Aspartate Amino Transferase 18 U/L (5-31); Bilirubin Total 0.6 mg/dL (0.0-1.0); Blood Urea Nitrogen 21 mg/dL (9-16); Calcium 9.4 mg/dL (8.4-10.2); Carbon Dioxide 33 mmol/L (22-29); Chloride 100 mmol/L (96-108); Cholesterol 197 mg/dL; Estimated Glomerular Filt Rate 52; Glucose Fasting 144 mg/dL (60-99); HDL Cholesterol 42 mg/dL; LDL Cholesterol Calculated 129 mg/dl; Potassium 4.2 mmol/L (3.3-5.1); Sodium 144 mmol/L (135-145); Total Protein 7.1 g/dL (6.5-8.0); Triglycerides 130 mg/dL
[2022-09-17 11:58] LABS: Estimated Average Glucose 126 mg/dL
[2022-09-17 11:59] LABS: Appearance Urine Clear; Color Urine Yellow; Glucose Urine UA Negative (Negative); Leukocyte Esterase Urine Small (1+) (Negative); Nitrite Urine Negative (Negative); UMIC TRIGGER UA YES; Urine Blood Negative (Negative); Urine Ketones Negative (Negative); Urine Protein Negative (Neg-Trace)
[2022-09-17 12:05] LABS: Bacteria Urine None Seen (None Seen); Hyaline Casts Urine 0-2 /LPF (0-2)
== END 2022-09-17 07:16 | disposition home or self-care (01) ==
LOC: HO.HMGCLDS 07:15
PROVIDERS: PCP Internal Medicine; Visit Provider Internal Medicine
DX: I11.0 Hypertensive heart disease with heart failure (principal); I50.30 Unspecified diastolic (congestive) heart failure; R30.0 Dysuria; E78.5 Hyperlipidemia, unspecified
CPT/HCPCS: 36415; 80053; 80061; 81001; 83036; 85025; 87086

== ENCOUNTER 2022-10-12 13:26 | Outpatient (REF) | payer MEDICARE, MEDICAID, SELFPAY ==
--- NOTE | ~2022-10-12 | US_ITS ---
EXAMINATION: US RETROPERITONEAL LIMITED (RENAL ONLY) CLINICAL INFORMATION: Calculus of kidney. COMPARISON: CTA chest 12/21/2019. CT abdomen and pelvis 11/04/2017. Ultrasound abdomen 10/22/2017. TECHNIQUE: Real-time imaging of the kidneys. FINDINGS: RIGHT KIDNEY: 12.5 x 5.7 x 6.1 cm (SAG x AP x TRV). The kidney is normal in size, contour, and echogenicity. Renal cortical thickness is normal. There are 2 small simple appearing cysts of the right kidney for which no follow-up imaging is usually warranted, the largest measures 1.4 cm. A few punctate echogenic foci are noted within the right kidney. There is no hydronephrosis. LEFT KIDNEY: 12.5 x 4.7 x 6.5 cm (SAG x AP x TRV). The kidney is normal in size, contour, and echogenicity. Renal cortical thickness is normal. There is a 2 cm hypoechoic lobulated region associated with the midpole cortex, nonspecific. A few punctate echogenic foci are noted within the left kidney, there is no hydronephrosis. US/US renal BI IMPRESSION: 1. A few punctate echogenic foci are noted within both kidneys. These may represent tiny nonobstructing renal calculi or possibly vascular reflections. There is no hydronephrosis of either kidney. 2. 2 cm hypoechoic lobulated region of the midpole cortex of the left kidney. This is a nonspecific finding. This may represent a prominent lobulation of the cortex, however, a renal mass is within the differential. Further evaluation is recommended with MRI imaging without and with gadolinium.
== END 2022-10-12 13:27 | disposition home or self-care (01) ==
LOC: HO.HMGCX 13:26
PROVIDERS: PCP Internal Medicine; Visit Provider Internal Medicine
DX: N20.0 Calculus of kidney (principal)
CPT/HCPCS: 76775

== ENCOUNTER 2022-10-13 06:57 | Outpatient (REF) | payer MEDICARE, MEDICAID, SELFPAY ==
[2022-10-13 11:25] LABS: Appearance Urine Clear; Color Urine Yellow; Glucose Urine UA Negative (Negative); Leukocyte Esterase Urine Small (1+) (Negative); Nitrite Urine Negative (Negative); PH 5.5 (5.0-9.0); UMIC TRIGGER UA YES; Urine Blood Negative (Negative); Urine Ketones Trace mg/dL (Negative); Urine Protein Negative (Neg-Trace)
[2022-10-13 11:46] LABS: Bacteria Urine Trace (None Seen); Hyaline Casts Urine 0-2 /LPF (0-2); Squamous Epithelial Cell Urine 0-2 /HPF (0-2); WBC Urine 0-5 /HPF (0-5)
== END 2022-10-13 06:58 | disposition home or self-care (01) ==
LOC: HO.HMGCLNP 06:57
PROVIDERS: PCP Internal Medicine; Visit Provider Internal Medicine
DX: R30.0 Dysuria (principal)
CPT/HCPCS: 81001; 87086

== ENCOUNTER 2022-10-30 12:57 | Outpatient (REF) | payer MEDICARE, MEDICAID, SELFPAY ==
[2022-10-30 14:04] LABS: MANUAL DIFF FLAG NO
[2022-10-30 14:20] LABS: Basophils Percent Auto 0.5 % (0-2); Eosinophils Absolute Auto 0.1 X10*3/uL (0.0-0.4); Eosinophils Percent Auto 1.1 % (0-4); Hematocrit 43.8 % (37.0-47.0); Hemoglobin 13.9 g/dl (12.0-16.0); Imm Gran Abs Auto 0.03 X10*3/uL (0.00-0.03); Imm Gran Pct Auto 0.5 % (0.0-0.4); Lymphocytes Absolute Auto 1.6 X10*3/uL (1.2-4.9); Mean Corpuscular HGB Conc 31.7 g/dl (31.0-35.0); Mean Corpuscular Volume 100.7 fL (80.0-98.0); Mean Platelet Volume 11.9 fL (9.4-12.3); Monocytes Absolute Auto 0.6 X10*3/uL (0.1-1.2); Monocytes Percent Auto 9.3 % (2-11); Neutrophils Absolute Auto 4.3 x10*3/uL (2.0-8.3); Neutrophils Percent Auto 64.6 % (45-73); Platelet Count 184 X10*3/uL (160-400); Red Blood Count 4.35 X10*6/uL (4.20-5.50); Red Cell Distribution Width 12.1 % (11.0-16.0); White Blood Count 6.7 X10*3/uL (4.8-10.8)
[2022-10-30 14:34] LABS: Alanine Aminotransferase 15 U/L (0-31); Albumin Level 4.1 g/dL (3.5-5.0); Alkaline Phosphatase 83 U/L (39-117); Anion Gap 13 (12-20); Aspartate Amino Transferase 20 U/L (5-31); Bilirubin Total 0.6 mg/dL (0.0-1.0); Blood Urea Nitrogen 24 mg/dL (9-16); Calcium 9.6 mg/dL (8.4-10.2); Carbon Dioxide 34 mmol/L (22-29); Chloride 100 mmol/L (96-108); Estimated Glomerular Filt Rate 57; Glucose Random 115 mg/dL (60-115); Potassium 4.6 mmol/L (3.3-5.1); Sodium 142 mmol/L (135-145); Total Protein 7.5 g/dL (6.5-8.0)
[2022-10-30 15:26] LABS: B Type Natriuretic Peptide 171 pg/mL (<100)
== END 2022-10-30 12:58 | disposition home or self-care (01) ==
LOC: HO.HMGCLDS 12:57
PROVIDERS: PCP Internal Medicine; Visit Provider Internal Medicine
DX: N18.30 Chronic kidney disease, stage 3 unspecified (principal); I50.30 Unspecified diastolic (congestive) heart failure
CPT/HCPCS: 36415; 80053; 83880; 85025

== ENCOUNTER 2022-11-27 08:04 | Outpatient (REF) | payer MEDICARE, MEDICAID, SELFPAY ==
--- NOTE | ~2022-11-27 | MR_ITS ---
EXAMINATION: MR ABDOMEN WITHOUT AND WITH CONTRAST CLINICAL INFORMATION: Prior abnormal imaging. COMPARISON: Renal ultrasound 10/12/2022 TECHNIQUE: MR abdomen was performed without and with use of 10 mL intravenous Gadavist gadolinium contrast. Postcontrast images are performed in multiphase dynamic sequences. Imaging was performed in 3 planes. FINDINGS: Image quality is technically degraded by coil artifact and respiratory motion artifact. LUNG BASES: No pleural effusion. LIVER, GALLBLADDER, AND BILIARY TREE: The liver is normal in size and contour. Hepatic steatosis. No focal hepatic lesion or biliary ductal dilatation is present. Gallstones. PANCREAS: No ductal dilatation. SPLEEN: Not enlarged. Splenule. ADRENAL GLANDS: Nodularity at the apex of bilateral adrenal glands. 1.1 cm bilateral adrenal nodules. There is drop in signal intensity with opposed phase imaging. This may represent adenomatous hyperplasia. KIDNEYS AND URETERS: The kidneys are in size and enhancement. There is a solid enhancing partially exophytic mass posterior midpole left kidney measuring 1.6 x 1.6 cm. 1.4 cm upper pole right renal cyst. No hydronephrosis. Nonspecific perinephric stranding. GASTROINTESTINAL TRACT: Imaged loops of small and large bowel are nonobstructed. No abdominal ascites or fluid collection. ABDOMINAL WALL: No significant hernia is appreciated. LYMPH NODES: No bulky abdominal lymphadenopathy. VASCULAR: Normal caliber abdominal aorta. MR/MR abdomen wo/w con IMPRESSION: 1.6 x 1.6 cm partially exophytic solid enhancing mass posterior midpole left kidney. 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 Hepatic steatosis. Cholelithiasis.
== END 2022-11-27 08:05 | disposition home or self-care (01) ==
LOC: HO.MRI 08:04
PROVIDERS: PCP Internal Medicine; Visit Provider Internal Medicine
DX: N28.89 Other specified disorders of kidney and ureter (principal)
CPT/HCPCS: 74183; A9585

== ENCOUNTER → 2022-11-27 09:22 | Outpatient (REF) | payer MEDICARE, MEDICAID, SELFPAY | LOC: HO.CARD 09:22 | PROVIDERS: PCP Internal Medicine; Visit Provider Internal Medicine | DX: I50.30 Unspecified diastolic (congestive) heart failure (principal) | CPT/HCPCS: 93308 ==

== ENCOUNTER 2023-01-14 08:15 | Outpatient (AMB) | payer MEDICARE, MEDICAID, SELFPAY ==
--- NOTE | 2023-01-14 03:15 | A.OFFVIS_ITS ---
Intake Intake Visit Reasons: Renal Mass Intake Note: NEW Patient presents today to established treatment for Renal Mass: Meds- None Allergies to Antibiotic- Cipro & Moxifloxacin Blood Thinner- Eliquis Database Software Technician Required: No Accompanied by: Daughter Allergies atorvastatin [From Lipitor] Allergy (Unknown, Verified 01/14/23 08:26) Leg cramps ciprofloxacin [From Cipro] Allergy (Unknown, Verified 01/14/23 08:26) Stomach Upset ezetimibe [From Zetia] Allergy (Unknown, Verified 01/14/23 08:26) leg cramps hydrochlorothiazide [From Avalide] Allergy (Unknown, Verified 01/14/23 08:26) Stomach Upset infliximab [From Remicade] Allergy (Unknown, Verified 01/14/23 08:26) Infection irbesartan [From Avalide] Allergy (Unknown, Verified 01/14/23 08:26) Stomach Upset metformin Allergy (Unknown, Verified 01/14/23 08:26) nausea moxifloxacin [From Avelox] Allergy (Unknown, Verified 01/14/23 08:26) Stomach Upset nifedipine Allergy (Unknown, Verified 01/14/23 08:26) upset stomach pravastatin Allergy (Unknown, Verified 01/14/23 08:26) stomach upset rosuvastatin [From Crestor] Allergy (Unknown, Verified 01/14/23 08:26) Leg cramps terazosin [From Hytrin] Allergy (Unknown, Verified 01/14/23 08:26) Stomach Upset valsartan [From Diovan] Allergy (Unknown, Verified 01/14/23 08:26) Stomach Upset warfarin [WARFARIN] Allergy (Unknown, Verified 01/14/23 08:26) THROAT SWELLING HPI HPI Comments History of Present Illness Details Camille is an 82-year-old female who presents today to the office to establish as a new patient for an evaluation of renal mass. 01/14/2023? The patient presents with her daughter her. She has past medical history significant for diabetes, and atrial fibrillation. She is on Eliquis 5 mg BID. She reports dysuria and back pain. She has urinary incontinence and wears pads. She denies any history of cigarette smoking. I have reviewed the results of renal US from 10/12/2022 revealed cm hypoechoic lobulated region of the midpole cortex of the left kidney. This is a nonspecific finding. I have reviewed the results of the MRI of the abdomen from 11/27/2022 revealed a solid enhancing partially exophytic mass posterior mid pole of the left kidney measuring 1.6x1.6cm, 1.4 cm upper pole right renal cyst was noted. 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 Evaluation today-- UA--leukocytes: trace; blood: negative. Plan: Discussed conservative management to include monitoring the kidney mass also discussed minimally invasive therapy with cryoablation. The patient wants to follow the lesion at this point and agrees with MRI in 6 months. [facility] Medical History (HFpEF) heart failure with preserved ejection fraction Acute on chronic diastolic (congestive) heart failure Acute respiratory failure with hypoxia Acute respiratory failure with hypoxia Ankle pain, right Atrial fibrillation Cervical radiculopathy due to degenerative joint disease of spine COPD (chronic obstructive pulmonary disease) Depression Diabetes Foot ulcer, right Hemorrhoids Hyperlipidemia Hypertension Hypokalemia Hypoxia Obesity LILY (obstructive sleep apnea) Persistent atrial fibrillation Physical deconditioning Recurrent pulmonary embolism Rheumatoid arthritis SOB (shortness of breath) Venous insufficiency Family History Father No problems noted. Mother No problems noted. Social History Household Members: Family Housing: House Do you presently have visiting nurse or other home services: No Alcohol intake: never Patient Tobacco Use Status: Never used Tobacco e-Cigarette/Vaping Use: Never Used service: No Current occupational status: retired Cognitive needs: No Hearing needs: No Vision needs: Yes Review of Systems Const All systems reviewed & are unremarkable except as noted in HPI and below Reports no additional complaints Eyes Reports no additional complaints ENT Reports no additional complaints Card Denies dyspnea Resp Denies cough and Denies dyspnea GI Reports no additional complaints Reports no additional complaints Musc Reports no additional complaints Skin/Breast Denies rash and Denies unusual bruising Neuro Reports no additional complaints Psych Reports no additional complaints Endo Reports no additional complaints Delfino/Lymph Reports no additional complaints Aller/Immun Reports no additional complaints Physical Exam Const General: cooperative, healthy appearing and no acute distress Nutritional Appearance: overweight Orientation/consciousness: patient oriented x3 HEENT Head: Yes normal to inspection, Yes normocephalic and Yes atraumatic Eyes Conjunctivae: conjunctivae normal Neck Neck: Yes normal visual inspection and Yes trachea midline Chest Chest palpation & inspection: normal inspection of the chest Resp Effort & Inspection: normal respiratory effort Cardio Rate: regular rate GI Inspection: Yes normal to inspection Skin General skin exam: no rashes or lesions noted Neuro General: patient oriented x3 Psych Appearance: grossly normal Results AMB Urinalysis, Automated UA Leukoctes 15 Tayo/uL Last Edit by GREGORY Correa on 01/14/23 08:43 UA Nitrite Negative Last Edit by Nasrin Herring Aniket on 01/14/23 08:43 UA Urobilinogen 0.2 mg/dL Last Edit by Nasrin Herring Aniket on 01/14/23 08:4 3 UA Protein 0 mg/dL Last Edit by GREGORY Correa on 01/14/23 08:43 UA pH 6.5 Last Edit by Nasrin Herring Aniket on 01/14/23 08:43 UA Blood 0 Yaya/uL Last Edit by GREGORY Correa on 01/14/23 08:43 UA Specific [place] 1.015 Last Edit by Nasrin Herring Aniket on 01/14/23 08: 43 UA Ketone Negative Last Edit by GREGORY Correa on 01/14/23 08:43 UA Bilirubin 0 mg/dL Last Edit by GREGORY Correa on 01/14/23 08:43 UA Glucose 0 mg/dL Last Edit by Nasrin Herring [facility] on 01/14/23 08:43 Results Reviewed Results Reviewed: Laboratory Last Values Urine pH (Auto) 6.5 01/14/23 08:35 Specific [place] (Auto) 1.015 01/14/23 08:35 Urine Protein (Auto) 0 mg/dL 01/14/23 08:35 Glucose (UA)(Auto) 0 mg/dL 01/14/23 08:35 Urine Ketones (Auto) Negative 01/14/23 08:35 Urine Blood (Auto) 0 Yaya/uL 01/14/23 08:35 Urine Nitrite (Auto) Negative 01/14/23 08:35 Urine Bilirubin (Auto) 0 mg/dL 01/14/23 08:35 Urine Urobilinogen (Auto) 0.2 mg/dL 01/14/23 08:35 Leukocyte Esterase (Auto) 15 Tayo/uL 01/14/23 08:35 Date of Service: 10/12/22 EXAMINATION: US RETROPERITONEAL LIMITED (RENAL ONLY) CLINICAL INFORMATION: Calculus of kidney. COMPARISON: CTA chest 12/21/2019. CT abdomen and pelvis 11/04/2017. Ultrasound abdomen 10/22/2017. FINDINGS: RIGHT KIDNEY: 12.5 x 5.7 x 6.1 cm (SAG x AP x TRV). The kidney is normal in size, contour, and echogenicity. Renal cortical thickness is normal. There are 2 small simple appearing cysts of the right kidney for which no follow-up imaging is usually warranted, the largest measures 1.4 cm. A few punctate echogenic foci are noted within the right kidney. There is no hydronephrosis. LEFT KIDNEY: 12.5 x 4.7 x 6.5 cm (SAG x AP x TRV). The kidney is normal in size, contour, and echogenicity. Renal cortical thickness is normal. There is a 2 cm hypoechoic lobulated region associated with the midpole cortex, nonspecific. A few punctate echogenic foci are noted within the left kidney, there is no hydronephrosis. IMPRESSION: 1.? A few punctate echogenic foci are noted within both kidneys. These may represent tiny nonobstructing renal calculi or possibly vascular reflections. There is no hydronephrosis of either kidney. 2.? 2 cm hypoechoic lobulated region of the midpole cortex of the left kidney. This is a nonspecific finding. This may represent a prominent lobulation of the cortex, however, a renal mass is within the differential. Further evaluation is recommended with MRI imaging without and with gadolinium. Date of Service: 11/27/22 EXAMINATION: MR ABDOMEN WITHOUT AND WITH CONTRAST CLINICAL INFORMATION: Prior abnormal imaging.? COMPARISON: Renal ultrasound 10/12/2022 multiphase dynamic sequences.? Imaging was performed in 3 planes. FINDINGS: Image quality is technically degraded by coil artifact and respiratory motion artifact. LUNG BASES: No pleural effusion. LIVER, GALLBLADDER, AND BILIARY TREE: The liver is normal in size and contour. Hepatic steatosis. No focal hepatic lesion or biliary ductal dilatation is present. Gallstones.? PANCREAS: No ductal dilatation. SPLEEN: Not enlarged. Splenule. ADRENAL GLANDS: Nodularity at the apex of bilateral adrenal glands. 1.1 cm bilateral adrenal nodules. There is drop in signal intensity with opposed phase imaging. This may represent adenomatous hyperplasia. KIDNEYS AND URETERS: The kidneys are in size and enhancement. There is a solid enhancing partially exophytic mass posterior midpole left kidney measuring 1.6 x 1.6 cm. 1.4 cm upper pole right renal cyst. No hydronephrosis. Nonspecific perinephric stranding. GASTROINTESTINAL TRACT: Imaged loops of small and large bowel are nonobstructed.? No abdominal ascites or fluid collection. ? ABDOMINAL WALL: No significant hernia is appreciated.? LYMPH NODES: No bulky abdominal lymphadenopathy. VASCULAR: Normal caliber abdominal aorta. IMPRESSION: 1.6 x 1.6 cm partially exophytic solid enhancing mass posterior midpole left kidney. 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 ? Hepatic steatosis. ? Cholelithiasis. ? ? Assessment & Plan Assessment & Plan (1) Left kidney mass: Code(s): N28.89 - Other specified disorders of kidney and ureter Plan Discussed conservative management to include monitoring the kidney mass also discussed minimally invasive therapy with cryoablation. The patient wants to follow the lesion at this point and agrees with MRI in 6 months. Orders: Orders MR abdomen wo/w con Today N28.89 - Other specified disorders of kidney and ureter AMB Urinalysis Automated Today Z13.9 - Encounter for screening, unspecified Patient Instructions: The patient had an opportunity to ask questions regarding treatment plan. All questions were answered. Imaging, Laboratory studies and physical exam results were discussed and reviewed in detail. No major barriers to understanding were identified. The patient expressed understanding and agreement with the above treatment plan.? ? ? The patient is aware they should contact our office by phone for worsening of their current condition or the appearance of new symptoms. Compliance is encouraged with any medications and followup testing that is ordered.? ? ? It is a privilege to be allowed the opportunity to participate in the urologic care of your patient. If you have any questions or concerns regarding treatment for the above conditions please do not hesitate to contact me. The office telephone contact is [phone].? ? ? This note is constructed in part using voice recognition software. While every effort has been made to ensure accuracy brush cutter errors may have been included.? ? ? Yours sincerely,? ? ? Jose العلي MD? Coding Level of Care Code New Pt Level 4 (92673) Diagnoses Left kidney mass N28.89
== END 2023-01-14 09:12 | disposition home or self-care (01) ==
PROVIDERS: PCP Internal Medicine; Visit Provider Urology
DX: Z13.9 Encounter for screening, unspecified (principal); N28.89 Other specified disorders of kidney and ureter
CPT/HCPCS: 99204

== ENCOUNTER → 2023-01-14 08:15 | Outpatient (BNVA) | payer MEDICARE, MEDICAID, SELFPAY | PROVIDERS: PCP Internal Medicine; Visit Provider Urology | DX: N28.89 Other specified disorders of kidney and ureter (principal) | CPT/HCPCS: 81003; 99202 ==

== ENCOUNTER 2023-01-19 06:41 | Outpatient (REF) | payer MEDICARE, MEDICAID, SELFPAY ==
[2023-01-19 11:54] LABS: Anion Gap 14 (12-20); Blood Urea Nitrogen 20 mg/dL (9-16); Calcium 10.1 mg/dL (8.4-10.2); Carbon Dioxide 34 mmol/L (22-29); Chloride 99 mmol/L (96-108); Estimated Glomerular Filt Rate > 60; Glucose Random 133 mg/dL (60-115); Potassium 4.1 mmol/L (3.3-5.1); Sodium 143 mmol/L (135-145)
== END 2023-01-19 06:42 | disposition home or self-care (01) ==
LOC: HO.HMGCLDS 06:41
PROVIDERS: PCP Internal Medicine; Visit Provider Internal Medicine
DX: I10 Essential (primary) hypertension (principal)
CPT/HCPCS: 36415; 80048

== ENCOUNTER 2023-02-08 12:42 | Outpatient (AMB) | payer MEDICARE, MEDICAID, SELFPAY ==
[2023-02-08 13:34] VITALS: BP 138/80; PULSE 95; TEMP 36.3; O2SAT 96; BMI 42.3
--- NOTE | 2023-02-08 13:34 | AM.OFFWIN_ITS ---
Intake Vital Signs 02/08/23 13:34 Height 5 ft 6 in Weight 262 lb BMI 42.3 BP 138/80 Blood Pressure Location Rt brachial Position Sitting Pulse 95 Pulse Source Pulse Oximeter Temp 97.4 F Temp Source Temporal Artery Scan Pulse Oximetry (%) 96 Intake Visit Reasons: EST/ left side calf wound Intake Note: pt is here for left side calf wound Patient Tobacco Use Status: Never used Tobacco Allergies atorvastatin [From Lipitor] Allergy (Unknown, Verified 02/08/23 14:15) Leg cramps ciprofloxacin [From Cipro] Allergy (Unknown, Verified 02/08/23 14:15) Stomach Upset ezetimibe [From Zetia] Allergy (Unknown, Verified 02/08/23 14:15) leg cramps hydrochlorothiazide [From Avalide] Allergy (Unknown, Verified 02/08/23 14:15) Stomach Upset infliximab [From Remicade] Allergy (Unknown, Verified 02/08/23 14:15) Infection irbesartan [From Avalide] Allergy (Unknown, Verified 02/08/23 14:15) Stomach Upset metformin Allergy (Unknown, Verified 02/08/23 14:15) nausea moxifloxacin [From Avelox] Allergy (Unknown, Verified 02/08/23 14:15) Stomach Upset nifedipine Allergy (Unknown, Verified 02/08/23 14:15) upset stomach pravastatin Allergy (Unknown, Verified 02/08/23 14:15) stomach upset rosuvastatin [From Crestor] Allergy (Unknown, Verified 02/08/23 14:15) Leg cramps terazosin [From Hytrin] Allergy (Unknown, Verified 02/08/23 14:15) Stomach Upset valsartan [From Diovan] Allergy (Unknown, Verified 02/08/23 14:15) Stomach Upset warfarin [WARFARIN] Allergy (Unknown, Verified 02/08/23 14:15) THROAT SWELLING Medication List - Last Reconciled 02/08/23 by Geoff Smith MD acetaminophen 1,000 mg PO BID albuterol sulfate 90 mcg/actuation 2 puffs inhalation Q4H PRN albuterol sulfate 0.63 mg (3 mL) inhalation Q4-6H PRN allopurinol 300 mg PO DAILY ammonium lactate 12% 1 appl topical DAILY PRN apixaban (Eliquis) 5 mg PO BID ascorbic acid (vitamin C) 500 mg PO DAILY blood sugar diagnostic As directed blood sugar diagnostic (FreeStyle Test strips) check glucose once a day blood-glucose meter As directed budesonide-formoterol 160-4.5 mcg/actuation 1 puff inhalation BID compr.stocking,knee,long,x-lrg 10-20 mmHg diltiazem HCl ER 240 mg PO DAILY folic acid 1 mg PO DAILY furosemide 40 mg PO BID gabapentin 300 mg PO BID glipizide 5 mg PO DAILY hospital bed As directed incontinence pad, liner, disp As directed levothyroxine 50 mcg PO QAM lidocaine 5% (Lidoderm) 1 patch topical DAILY lisinopril 5 mg PO BID meclizine 25 mg PO DAILY PRN metolazone 2.5 mg PO Q OTHER DAY mupirocin 2% 1 appl topical TID pantoprazole 40 mg PO DAILY@0600 potassium chloride ER 20 mEq (2 x 10 mEq) PO DAILY sertraline 50 mg PO DAILY sulfasalazine 1 g (2 x 500 mg) PO BID umeclidinium 62.5 mcg/actuation (Incruse Ellipta) 1 inh PO DAILY Do you need a note to return to daycare/school/sports/work: No HPI EST/ left side calf wound HPI Details 82-year-old female presents to the [facility] for a sick visit. Patient injured her left leg against the walker. The metal walker scraped the skin on the left leg. [facility] Medical History (HFpEF) heart failure with preserved ejection fraction Acute on chronic diastolic (congestive) heart failure Acute respiratory failure with hypoxia Acute respiratory failure with hypoxia Ankle pain, right Atrial fibrillation Cervical radiculopathy due to degenerative joint disease of spine COPD (chronic obstructive pulmonary disease) Depression Diabetes Foot ulcer, right Hemorrhoids Hyperlipidemia Hypertension Hypokalemia Hypoxia Obesity LILY (obstructive sleep apnea) Persistent atrial fibrillation Physical deconditioning Recurrent pulmonary embolism Rheumatoid arthritis SOB (shortness of breath) Venous insufficiency Family History Father No problems noted. Mother No problems noted. Social History Household Members: Family Housing: House Do you presently have visiting nurse or other home services: No Alcohol intake: never Patient Tobacco Use Status: Never used Tobacco e-Cigarette/Vaping Use: Never Used service: No Current occupational status: retired Cognitive needs: No Hearing needs: No Vision needs: Yes Physical Exam Vital Signs: Last Vital Signs Temp 97.4 F 02/08/23 13:34 Pulse 95 02/08/23 13:34 BP 138/80 02/08/23 13:34 Pulse Ox 96 02/08/23 13:34 BMI result Body Mass Index 42.3 Skin Other: Left leg: Skin abrasion on the side of the leg. No surrounding erythema Assessment & Plan Assessment & Plan (1) Wound of left leg: Code(s): S81.802A - Unspecified open wound, left lower leg, initial encounter Plan: Wound was cleaned who and bacitracin applied. Tetanus shot provided. No antibiotics are needed. Coding Level of Care Code Est Pt Level 4 (74402) Diagnoses Wound of left leg S81.802A
== END 2023-02-08 14:30 | disposition home or self-care (01) ==
PROVIDERS: PCP Internal Medicine; Visit Provider Internal Medicine
DX: S81.802A Unspecified open wound, left lower leg, initial encounter (principal); Z23 Encounter for immunization
CPT/HCPCS: 90471; 90715; 99214

== ENCOUNTER 2023-02-16 08:02 | Outpatient (AMB) | payer MEDICARE, MEDICAID, SELFPAY ==
--- NOTE | 2023-02-16 08:03 | MHC.OFFWIV ---
Intake Vital Signs 02/16/23 08:05 Weight 265 lb BP 120/80 Blood Pressure Location Lt brachial Position Sitting Pulse 80 Pulse Source Pulse Oximeter Pulse Oximetry (%) 92 Oxygen Delivery Method Room Air Intake Visit Reasons: EST/wound dressing change Intake Note: Patient here for wound change on lower left leg. Patient Tobacco Use Status: Never used Tobacco Allergies atorvastatin [From Lipitor] Allergy (Unknown, Verified 02/16/23 08:25) Leg cramps ciprofloxacin [From Cipro] Allergy (Unknown, Verified 02/16/23 08:25) Stomach Upset ezetimibe [From Zetia] Allergy (Unknown, Verified 02/16/23 08:25) leg cramps hydrochlorothiazide [From Avalide] Allergy (Unknown, Verified 02/16/23 08:25) Stomach Upset infliximab [From Remicade] Allergy (Unknown, Verified 02/16/23 08:25) Infection irbesartan [From Avalide] Allergy (Unknown, Verified 02/16/23 08:25) Stomach Upset metformin Allergy (Unknown, Verified 02/16/23 08:25) nausea moxifloxacin [From Avelox] Allergy (Unknown, Verified 02/16/23 08:25) Stomach Upset nifedipine Allergy (Unknown, Verified 02/16/23 08:25) upset stomach pravastatin Allergy (Unknown, Verified 02/16/23 08:25) stomach upset rosuvastatin [From Crestor] Allergy (Unknown, Verified 02/16/23 08:25) Leg cramps terazosin [From Hytrin] Allergy (Unknown, Verified 02/16/23 08:25) Stomach Upset valsartan [From Diovan] Allergy (Unknown, Verified 02/16/23 08:25) Stomach Upset warfarin [WARFARIN] Allergy (Unknown, Verified 02/16/23 08:25) THROAT SWELLING Medication List - Last Reconciled 02/16/23 by Geoff Smith MD acetaminophen 1,000 mg PO BID albuterol sulfate 90 mcg/actuation 2 puffs inhalation Q4H PRN albuterol sulfate 0.63 mg (3 mL) inhalation Q4-6H PRN allopurinol 300 mg PO DAILY ammonium lactate 12% 1 appl topical DAILY PRN apixaban (Eliquis) 5 mg PO BID ascorbic acid (vitamin C) 500 mg PO DAILY blood sugar diagnostic As directed blood sugar diagnostic (FreeStyle Test strips) check glucose once a day blood-glucose meter As directed budesonide-formoterol 160-4.5 mcg/actuation 1 puff inhalation BID compr.stocking,knee,long,x-lrg 10-20 mmHg diltiazem HCl ER 240 mg PO DAILY folic acid 1 mg PO DAILY furosemide 40 mg PO BID gabapentin 300 mg PO BID glipizide 5 mg PO DAILY hospital bed As directed incontinence pad, liner, disp As directed levothyroxine 50 mcg PO QAM lidocaine 5% (Lidoderm) 1 patch topical DAILY lisinopril 5 mg PO BID meclizine 25 mg PO DAILY PRN metolazone 2.5 mg PO Q OTHER DAY mupirocin 2% 1 appl topical TID pantoprazole 40 mg PO DAILY@0600 potassium chloride ER 20 mEq (2 x 10 mEq) PO DAILY sertraline 50 mg PO DAILY sulfasalazine 1 g (2 x 500 mg) PO BID umeclidinium 62.5 mcg/actuation (Incruse Ellipta) 1 inh PO DAILY Do you need a note to return to daycare/school/sports/work: No HPI EST/wound dressing change HPI Details 82-year-old female presents to the office for a sick visit. She would like to have the wound re examined on the left leg. Patient feels the symptoms of pain have worsened. There is no drainage or discharge from the wound. [facility] Medical History (HFpEF) heart failure with preserved ejection fraction Acute on chronic diastolic (congestive) heart failure Acute respiratory failure with hypoxia Acute respiratory failure with hypoxia Ankle pain, right Atrial fibrillation Cervical radiculopathy due to degenerative joint disease of spine COPD (chronic obstructive pulmonary disease) Depression Diabetes Foot ulcer, right Hemorrhoids Hyperlipidemia Hypertension Hypokalemia Hypoxia Obesity LILY (obstructive sleep apnea) Persistent atrial fibrillation Physical deconditioning Recurrent pulmonary embolism Rheumatoid arthritis SOB (shortness of breath) Venous insufficiency Family History Father No problems noted. Mother No problems noted. Social History Household Members: Family Housing: House Do you presently have visiting nurse or other home services: No Alcohol intake: never Patient Tobacco Use Status: Never used Tobacco e-Cigarette/Vaping Use: Never Used service: No Current occupational status: retired Cognitive needs: No Hearing needs: No Vision needs: Yes Physical Exam Vital Signs: Last Vital Signs Pulse 80 02/16/23 08:05 BP 120/80 02/16/23 08:05 Pulse Ox 92 02/16/23 08:05 Oxygen Delivery Method Room Air 02/16/23 08:05 Extrem Other: Left leg: Open erythematous wound on the side of the leg. No induration. Healthy granulation tissue. Assessment & Plan Assessment & Plan (1) Wound of left leg: Code(s): S81.802A - Unspecified open wound, left lower leg, initial encounter Plan: Reassurance. Continue to apply a dry dressing to the wound. No antibiotics needed. Coding Level of Care Code Est Pt Level 3 (63454) Diagnoses Wound of left leg S81.802A
[2023-02-16 08:05] VITALS: BP 120/80; PULSE 80; O2SAT 92
== END 2023-02-16 08:52 | disposition home or self-care (01) ==
PROVIDERS: PCP Internal Medicine; Visit Provider Internal Medicine
DX: S81.802A Unspecified open wound, left lower leg, initial encounter (principal)
CPT/HCPCS: 99213

== ENCOUNTER 2023-03-02 12:28 | Outpatient (RCR) | payer MEDICARE, MEDICAID, SELFPAY | END 2023-04-27 17:00 | disposition home or self-care (01) | LOC: HO.WCC 12:28 | PROVIDERS: PCP Internal Medicine; Visit Provider Physician Assistant | DX: E11.622 Type 2 diabetes mellitus with other skin ulcer (principal); L97.222 Non-pressure chronic ulcer of left calf with fat layer exposed; E11.40 Type 2 diabetes mellitus with diabetic neuropathy, unspecified; E11.51 Type 2 diabetes mellitus with diabetic peripheral angiopathy without gangrene; I87.2 Venous insufficiency (chronic) (peripheral); I11.0 Hypertensive heart disease with heart failure; I50.9 Heart failure, unspecified; I26.99 Other pulmonary embolism without acute cor pulmonale; Z86.19 Personal history of other infectious and parasitic diseases; Z86.718 Personal history of other venous thrombosis and embolism | CPT/HCPCS: 11042; 97597; 99212 ==

== ENCOUNTER 2023-03-25 10:54 | Outpatient (AMB) | payer MEDICARE, MEDICAID, SELFPAY ==
--- NOTE | 2023-03-25 10:58 | A.OFFPC_ITS ---
Vital Signs 03/25/23 11:01 Height 5 ft 6 in Weight 263 lb BMI 42.4 BP 138/72 Blood Pressure Location Lt brachial Position Sitting Pulse 84 Pulse Source Pulse Oximeter Pulse Oximetry (%) 97 Oxygen Delivery Method Room Air Intake Visit Reasons: Annual PE/DM Intake Note: Pt is here today for PE. Allergies atorvastatin [From Lipitor] Allergy (Unknown, Verified 03/25/23 11:07) Leg cramps ciprofloxacin [From Cipro] Allergy (Unknown, Verified 03/25/23 11:07) Stomach Upset ezetimibe [From Zetia] Allergy (Unknown, Verified 03/25/23 11:07) leg cramps hydrochlorothiazide [From Avalide] Allergy (Unknown, Verified 03/25/23 11:07) Stomach Upset infliximab [From Remicade] Allergy (Unknown, Verified 03/25/23 11:07) Infection irbesartan [From Avalide] Allergy (Unknown, Verified 03/25/23 11:07) Stomach Upset metformin Allergy (Unknown, Verified 03/25/23 11:07) nausea moxifloxacin [From Avelox] Allergy (Unknown, Verified 03/25/23 11:07) Stomach Upset nifedipine Allergy (Unknown, Verified 03/25/23 11:07) upset stomach pravastatin Allergy (Unknown, Verified 03/25/23 11:07) stomach upset rosuvastatin [From Crestor] Allergy (Unknown, Verified 03/25/23 11:07) Leg cramps terazosin [From Hytrin] Allergy (Unknown, Verified 03/25/23 11:07) Stomach Upset valsartan [From Diovan] Allergy (Unknown, Verified 03/25/23 11:07) Stomach Upset warfarin [WARFARIN] Allergy (Unknown, Verified 03/25/23 11:07) THROAT SWELLING Medication List - Last Reconciled 03/25/23 by Salud Lester MD acetaminophen 1,000 mg PO BID albuterol sulfate 90 mcg/actuation 2 puffs inhalation Q4H PRN albuterol sulfate 0.63 mg (3 mL) inhalation Q4-6H PRN ammonium lactate 12% 1 appl topical DAILY PRN apixaban (Eliquis) 5 mg PO BID ascorbic acid (vitamin C) 500 mg PO DAILY blood sugar diagnostic As directed blood sugar diagnostic (FreeStyle Test strips) check glucose once a day blood-glucose meter As directed budesonide-formoterol 160-4.5 mcg/actuation 1 puff inhalation BID compr.stocking,knee,long,x-lrg 10-20 mmHg diltiazem HCl ER 240 mg PO DAILY estradiol 0.01%(0.1mg/gram) (Estrace) 0.25 appful vaginal 2XW folic acid 1 mg PO DAILY furosemide 40 mg PO BID gabapentin 300 mg PO BID glipizide 5 mg PO DAILY hospital bed As directed incontinence pad, liner, disp As directed levothyroxine 50 mcg PO QAM lidocaine 5% (Lidoderm) 1 patch topical DAILY lisinopril 5 mg PO BID meclizine 25 mg PO DAILY PRN metolazone 2.5 mg PO Q OTHER DAY mupirocin 2% 1 appl topical TID pantoprazole 40 mg PO DAILY@0600 potassium chloride ER 20 mEq (2 x 10 mEq) PO DAILY sertraline 50 mg PO DAILY sulfasalazine 1 g (2 x 500 mg) PO BID umeclidinium 62.5 mcg/actuation (Incruse Ellipta) 1 inh PO DAILY Tobacco use date assessed: 03/25/23 Dental Screening Dental Screen Date: 03/25/23 Did you have a dental visit in the last 12 months?: No Did you have a dental problem in the last 6 months where you did not have access to dental care?: No Was dental information given to patient?: Patient declined HPI Annual PE/DM HPI Details Pt presents for PE. Hypertension paroxysmal AFib hyperlipidemia chronic lower extremity edema COPD are stable on current medications. Patient follows up with wound clinic for chronic lower extremities ulcers due to venous insufficiency. Patient is going to [place] for 2nd opinion regarding treatment for renal mass. [facility] Medical History Ankle pain, right Hypokalemia Persistent atrial fibrillation Acute on chronic diastolic (congestive) heart failure LILY (obstructive sleep apnea) Acute respiratory failure with hypoxia Hypoxia (HFpEF) heart failure with preserved ejection fraction SOB (shortness of breath) Acute respiratory failure with hypoxia Foot ulcer, right Depression Physical deconditioning Cervical radiculopathy due to degenerative joint disease of spine Venous insufficiency Recurrent pulmonary embolism Diabetes Hyperlipidemia Hemorrhoids Obesity Rheumatoid arthritis COPD (chronic obstructive pulmonary disease) Atrial fibrillation Hypertension Family History Father No problems noted. Mother No problems noted. Social History Household Members: Family Housing: House Do you presently have visiting nurse or other home services: No Alcohol intake: never Patient Tobacco Use Status: Never used Tobacco e-Cigarette/Vaping Use: Never Used service: No Current occupational status: retired Cognitive needs: No Hearing needs: No Vision needs: Yes Questionnaire Thrive Questionnaire Date Thrive assessed: 09/21/22 OTILIO-7 AMB Questionnaire OTILIO-7 Date OTILIO - 7 assessed: 09/21/22 Source: Developed by Drs. Gume Adam, Sandhya Chopra, Major Headley and colleagues, with an educational [email or web address] from [employer]. Review of Systems Const All systems reviewed & are unremarkable except as noted in HPI and below Reports no additional complaints Eyes Reports no additional complaints ENT Reports no additional complaints Card Reports no additional complaints Resp Reports no additional complaints GI Reports no additional complaints Reports no additional complaints Physical exam (Primary Care) Vital Signs: Last Vital Signs Pulse 84 03/25/23 11:01 BP 138/72 03/25/23 11:01 Pulse Ox 97 03/25/23 11:01 Oxygen Delivery Method Room Air 03/25/23 11:01 BMI result Body Mass Index 42.4 Tobacco/Smoking Status: Tobacco use Status Tobacco use date assessed 03/25/23 03/25/23 11:13 Patient Tobacco Use Status Never used Tobacco 03/25/23 10:58 e-Cigarette/Vaping Use Never Used 03/25/23 10:58 Thrive Assessment: Date of Thrive Assessment Date Thrive assessed 09/21/22 03/25/23 10:58 Const General: no acute distress HENMT Head: Yes normal to inspection Face and sinus: Yes normal facial exam Mouth: Normal oral and palatal mucosa present Throat: Yes posterior oropharynx normal Neck Neck: Yes no lymphadenopathy and Yes supple Resp Effort & Inspection: normal respiratory effort Auscultation: diminished lung sounds Cardio Rhythm: regular rhythm Heart sounds: S1 normal heart sound present and S2 normal heart sound present GI Inspection: Yes normal to inspection Palpation (GI): Soft to palpation Percussion: Yes normal to percussion Auscultation: normal bowel sounds Skin Other: Chronic dystrophic venous status changes on both shins, 1+ pitting edema Assessment and Plan Assessment & Plan (1) Dysuria: Code(s): R30.0 - Dysuria Plan: Check UA and cultures, estrogen vaginal cream to use it twice a week is prescrib ed to prevent frequent UTI (2) Left kidney mass: Comment: f/u Marianajoan, will have 2nd opinion in [place] Code(s): N28.89 - Other specified disorders of kidney and ureter (3) Hypertension: Comment: BP goal less than 130/80 Code(s): I10 - Essential (primary) hypertension Plan: Continue current medications (4) Hyperlipidemia: Comment: Intolerant to statins and Zetia Code(s): E78.5 - Hyperlipidemia, unspecified Plan: Continue low-cholesterol diet (5) (HFpEF) heart failure with preserved ejection fraction: Comment: Echo 01/2021, severely increased left ventricle thickness, hyperdynamic LVEF, mild MS, myocardial perfusion nl 04/20 Code(s): I50.30 - Unspecified diastolic (congestive) heart failure Plan: Continue current medications and follow-up with Cardiology (6) Atrial fibrillation: Comment: permanent Code(s): I48.91 - Unspecified atrial fibrillation Plan: Rate controlled on diltiazem and anticoagulated on Eliquis (7) Diabetes: Comment: A1C goal less than 8 Code(s): E11.9 - Type 2 diabetes mellitus without complications Plan: The most recent A1c was 6.0, continue ADA diet increase physical activity, patient will return for fasting blood work tomorrow. Follow-up in 6 months (8) Annual physical exam: Code(s): Z00.00 - Encounter for general adult medical examination without abnormal findings Plan: Well-balanced diet increase physical activity weight loss discussed with the patient Orders: Orders UA CC w/rflx Micro + Cult Today R30.0 - Dysuria Comprehensive [place]. Panel Fast Today E11.9 - Type 2 diabetes mellitus without complications, E78.5 - Hyperlipidemia, unspecified, I10 - Essential (primary) hypertension, I48.91 - Unspecified atrial fibrillation, I50.30 - Unspecified diastolic (congestive) heart failure, N28.89 - Other specified disorders of kidney and ureter Complete Blood Count Auto Diff Today E11.9 - Type 2 diabetes mellitus without complications, E78.5 - Hyperlipidemia, unspecified, I10 - Essential (primary) hypertension, I48.91 - Unspecified atrial fibrillation, I50.30 - Unspecified diastolic (congestive) heart failure, N28.89 - Other specified disorders of kidney and ureter TSH reflex Free T4 Today E11.9 - Type 2 diabetes mellitus without complications, E78.5 - Hyperlipidemia, unspecified, I10 - Essential (primary) hypertension, I48.91 - Unspecified atrial fibrillation, I50.30 - Unspecified diastolic (congestive) heart failure, N28.89 - Other specified disorders of kidney and ureter Medications: New estradiol 0.01%(0.1mg/gram) (Estrace) 0.25 appful vaginal 2XW 42.5 grams 0RF Changed From furosemide 40 mg PO BID 180 tabs 1RF To furosemide 1 1/2 tablet 40 mg PO BID Coding Level of Care Code Est Pt Prev Care >65y(96080) Diagnoses Dysuria R30.0 Left kidney mass N28.89 Hypertension I10 Hyperlipidemia E78.5 (HFpEF) heart failure with preserved ejection fraction I50.30 Atrial fibrillation I48.91 Diabetes E11.9 Annual physical exam Z00.00
[2023-03-25 11:01] VITALS: BP 138/72; PULSE 84; O2SAT 97; BMI 42.4
== END 2023-03-25 11:49 | disposition home or self-care (01) ==
PROVIDERS: Visit Provider Internal Medicine
DX: Z00.00 Encounter for general adult medical examination without abnormal findings (principal); I50.30 Unspecified diastolic (congestive) heart failure; I48.91 Unspecified atrial fibrillation; E11.9 Type 2 diabetes mellitus without complications; R30.0 Dysuria; N28.89 Other specified disorders of kidney and ureter; I10 Essential (primary) hypertension; E78.5 Hyperlipidemia, unspecified
CPT/HCPCS: 99397

== ENCOUNTER 2023-03-30 07:21 | Outpatient (REF) | payer MEDICARE, MEDICAID, SELFPAY ==
[2023-03-30 11:10] LABS: MANUAL DIFF FLAG NO
[2023-03-30 11:22] LABS: Estimated Average Glucose 123 mg/dL; Hemoglobin A1c % 5.9 % (<6.0)
[2023-03-30 11:27] LABS: Basophils Percent Auto 0.6 % (0-2); Eosinophils Absolute Auto 0.1 X10*3/uL (0.0-0.4); Eosinophils Percent Auto 1.3 % (0-4); Hematocrit 44.2 % (37.0-47.0); Hemoglobin 14.1 g/dl (12.0-16.0); Imm Gran Abs Auto 0.02 X10*3/uL (0.00-0.03); Imm Gran Pct Auto 0.3 % (0.0-0.4); Lymphocytes Absolute Auto 2.3 X10*3/uL (1.2-4.9); Lymphocytes Percent Auto 36.7 % (20-40); Mean Corpuscular HGB Conc 31.9 g/dl (31.0-35.0); Mean Corpuscular Volume 100.2 fL (80.0-98.0); Mean Platelet Volume 11.9 fL (9.4-12.3); Monocytes Absolute Auto 0.6 X10*3/uL (0.1-1.2); Monocytes Percent Auto 8.8 % (2-11); Neutrophils Absolute Auto 3.3 x10*3/uL (2.0-8.3); Neutrophils Percent Auto 52.3 % (45-73); Platelet Count 200 X10*3/uL (160-400); Red Blood Count 4.41 X10*6/uL (4.20-5.50); Red Cell Distribution Width 12.3 % (11.0-16.0); White Blood Count 6.3 X10*3/uL (4.8-10.8)
[2023-03-30 11:48] LABS: Appearance Urine Clear; Color Urine Yellow; Glucose Urine UA Negative (Negative); Leukocyte Esterase Urine Trace (Negative); Nitrite Urine Negative (Negative); PH 6.5 (5.0-9.0); Specific Gravity - Urine 1.015 (1.005-1.025); UMIC TRIGGER UACC YES; Urine Blood Negative (Negative); Urine Ketones Negative (Negative); Urine Protein Negative (Neg-Trace)
[2023-03-30 11:49] LABS: Alanine Aminotransferase 12 U/L (0-31); Alkaline Phosphatase 74 U/L (39-117); Anion Gap 14 (12-20); Aspartate Amino Transferase 19 U/L (5-31); Bilirubin Total 0.5 mg/dL (0.0-1.0); Blood Urea Nitrogen 21 mg/dL (9-16); Calcium 9.9 mg/dL (8.4-10.2); Carbon Dioxide 32 mmol/L (22-29); Chloride 102 mmol/L (96-108); Cholesterol 243 mg/dL (<200); Estimated Glomerular Filt Rate > 60; Glucose Fasting 132 mg/dL (60-99); HDL Cholesterol 36 mg/dL (>40); LDL Cholesterol Calculated 165 mg/dL (<100); Potassium 4.1 mmol/L (3.3-5.1); Sodium 144 mmol/L (135-145); Total Protein 7.8 g/dL (6.5-8.0); Triglycerides 213 mg/dL (<150)
[2023-03-30 11:52] LABS: TSH reflex Free T4 5.84 uIU/mL (0.32-4.0)
[2023-03-30 11:59] LABS: Bacteria Urine None Seen (None Seen); Hyaline Casts Urine 0-2 /LPF (0-2); RBC Urine 0-2 /HPF (0-2); Squamous Epithelial Cell Urine 0-2 /HPF (0-2); WBC Urine 0-5 /HPF (0-5)
[2023-03-30 12:34] LABS: Creatinine Urine 57.27 mg/dL; Microalbumin Urine < 5.0 mg/L
[2023-03-30 12:47] LABS: Free T4 (Free Thyroxine) 0.73 ng/dL (0.71-1.85)
== END 2023-03-30 07:22 | disposition home or self-care (01) ==
LOC: HO.HMGCLDS 07:21
PROVIDERS: PCP Internal Medicine; Visit Provider Internal Medicine
DX: I13.0 Hypertensive heart and chronic kidney disease with heart failure and stage 1 through stage 4 chronic kidney disease, or unspecified chronic kidney disease (principal); E11.22 Type 2 diabetes mellitus with diabetic chronic kidney disease; N18.30 Chronic kidney disease, stage 3 unspecified; I50.30 Unspecified diastolic (congestive) heart failure; E78.5 Hyperlipidemia, unspecified; J44.9 Chronic obstructive pulmonary disease, unspecified; N28.89 Other specified disorders of kidney and ureter; I48.91 Unspecified atrial fibrillation; R30.0 Dysuria
CPT/HCPCS: 36415; 80053; 80061; 81001; 82043; 82570; 83036; 84439; 84443; 85025

== ENCOUNTER 2023-07-08 08:56 | Outpatient (REF) | payer MEDICARE, MEDICAID, SELFPAY ==
--- NOTE | ~2023-07-08 | MR_ITS ---
EXAMINATION: MR ABDOMEN WITHOUT AND WITH CONTRAST CLINICAL INFORMATION: Follow-up left renal mass. COMPARISON: Abdominal MRI 11/27/2022. TECHNIQUE: MR abdomen was performed without and with use of 10 mL intravenous Gadavist gadolinium contrast. Postcontrast images are performed in multiphase dynamic sequences. Imaging was performed in 3 planes. FINDINGS: Evaluation is limited secondary to patient body habitus, coil artifact from respiratory motion. LUNG BASES: Partially imaged cardiomegaly. LIVER, GALLBLADDER, AND BILIARY TREE: The uppermost portion of the liver was not included within the field of view of the axial images, limiting evaluation. There is signal loss in the opposed phase dual echo images in the liver consistent with hepatic steatosis. Otherwise, liver is normal in morphology and size. No liver lesion. No biliary ductal dilatation. Cholelithiasis without findings to suspect acute cholecystitis. No biliary ductal dilatation. 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 Otherwise, there is normal signal attenuation throughout the pancreatic parenchyma without evidence of main ductal dilatation nor significant peripancreatic inflammatory changes. SPLEEN: A 1.8 cm inferior splenule is unchanged. ADRENAL GLANDS: Nodularity at the apex of both adrenal glands is unchanged measuring up to 1.2 cm with drop in signal intensity in the opposed phase dual echo images consistent with adenomas, for which no imaging follow-up is recommended. KIDNEYS AND URETERS: A 1.5 x 1.7 cm solid partially exophytic mass along the posterolateral surface of the mid pole left kidney is unchanged. A 1.4 cm T2 bright avascular Bosniak 1 cyst in the upper right kidney is unchanged. No new liver lesions. Symmetric nephrograms. No hydronephrosis. GASTROINTESTINAL TRACT: Nonobstructive bowel gas pattern. No abdominal ascites or fluid collection. ABDOMINAL WALL: No significant hernia is appreciated. LYMPH NODES: No lymphadenopathy. VASCULAR: Normal caliber abdominal aorta. OSSEOUS STRUCTURES: Degenerative changes of the spine. No acute or aggressive appearing osseous findings. ADDITIONAL FINDINGS: Only visualized on the large [id number] T2 coronal and sagittal images (series 3 and series 5) there is a 5.5 cm well-defined, homogeneous T2 bright cystic appearing lesion in the right adnexa, possibly originating from the right ovary which is increased in size from 4.5 cm. MR/MR abdomen wo/w con IMPRESSION: 1. Compared to most recent MRI from 11/27/2022, stable 1.7 cm solid renal mass in the mid pole of the left kidney. 2. Compared to 11/27/2022, increased size of a cystic appearing lesion projecting over the region of the right adnexa, incompletely characterized in this examination. Recommend further characterization with dedicated transabdominal and transvaginal pelvic ultrasound. 3. Hepatic steatosis. 4. Cholelithiasis without findings to suspect acute cholecystitis.
[2023-07-08] MEDS: gadobutroL 10 ML VIAL IVPUSH (10:14)
== END 2023-07-08 08:57 | disposition home or self-care (01) ==
LOC: HO.MRI 08:56
PROVIDERS: PCP Internal Medicine; Visit Provider Urology
DX: N28.89 Other specified disorders of kidney and ureter (principal)
CPT/HCPCS: 74183; A9585

== ENCOUNTER 2023-07-12 13:51 | Outpatient (AMB) | payer MEDICARE, MEDICAID, SELFPAY ==
--- NOTE | 2023-07-12 14:10 | A.OFFVIS_ITS ---
Intake Intake Visit Reasons: 6m/MRI Intake Note: Patient presents today for Renal Mass & MRI Results: Meds- None Allergies to Antibiotic- Cipro & Moxifloxacin Blood Thinner- Eliquis Medical Equipment Repair Technician Required: No Accompanied by: Daughter Allergies atorvastatin [From Lipitor] Allergy (Unknown, Verified 07/27/23 13:28) Leg cramps ciprofloxacin [From Cipro] Allergy (Unknown, Verified 07/27/23 13:28) Stomach Upset ezetimibe [From Zetia] Allergy (Unknown, Verified 07/27/23 13:28) leg cramps hydrochlorothiazide [From Avalide] Allergy (Unknown, Verified 07/27/23 13:28) Stomach Upset infliximab [From Remicade] Allergy (Unknown, Verified 07/27/23 13:28) Infection irbesartan [From Avalide] Allergy (Unknown, Verified 07/27/23 13:28) Stomach Upset metformin Allergy (Unknown, Verified 07/27/23 13:28) nausea moxifloxacin [From Avelox] Allergy (Unknown, Verified 07/27/23 13:28) Stomach Upset nifedipine Allergy (Unknown, Verified 07/27/23 13:28) upset stomach pravastatin Allergy (Unknown, Verified 07/27/23 13:28) stomach upset rosuvastatin [From Crestor] Allergy (Unknown, Verified 07/27/23 13:28) Leg cramps terazosin [From Hytrin] Allergy (Unknown, Verified 07/27/23 13:28) Stomach Upset valsartan [From Diovan] Allergy (Unknown, Verified 07/27/23 13:28) Stomach Upset warfarin [WARFARIN] Allergy (Unknown, Verified 07/27/23 13:28) THROAT SWELLING HPI HPI Comments History of Present Illness Details 07/12/23-- Camille is an 82-year-old femal e who presents today follow up evaluation of renal mass. Reviewed repeat MRI 07/08/2023--Compared to most recent MRI from 11/27/2022, stable 1.7 cm solid renal mass in the mid pole of the left kidney. Review of chart: 01/14/2023? The patient presents with her daughter her as a new patient for an evaluation of renal mass. She has past medical history significant for diabetes, and atrial fibrillation. She is on Eliquis 5 mg BID. She reports dysuria and back pain. She has urinary incontinence and wears pads. She denies any history of cigarette smoking. I have reviewed the results of renal US from 10/12/2022 revealed cm hypoechoic lobulated region of the midpole cortex of the left kidney. This is a nonspecific finding. I have reviewed the results of the MRI of the abdomen from 11/27/2022 revealed a solid enhancing partially exophytic mass posterior mid pole of the left kidney measuring 1.6x1.6cm, 1.4 cm upper pole right renal cyst was noted. 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 Evaluation today-- UA--leukocytes: trace; blood: negative. Plan:Discussed conservative management to include monitoring the kidney mass also discussed minimally invasive therapy with cryoablation. The patient wants to follow the lesion at this point and agrees with MRI in 6 months. 07/12/2023--Plan- continue to monitor geraldine al mass [facility] Medical History (Updated 08/31/23 @ 20:42 by Jose العلي MD) Ankle pain, right Hypokalemia Persistent atrial fibrillation Acute on chronic diastolic (congestive) heart failure LILY (obstructive sleep apnea) Acute respiratory failure with hypoxia Hypoxia (HFpEF) heart failure with preserved ejection fraction SOB (shortness of breath) Acute respiratory failure with hypoxia Depression Physical deconditioning Cervical radiculopathy due to degenerative joint disease of spine Venous insufficiency Recurrent pulmonary embolism Diabetes Hyperlipidemia Hemorrhoids Obesity Rheumatoid arthritis COPD (chronic obstructive pulmonary disease) Atrial fibrillation Hypertension Family History Father No problems noted. Mother No problems noted. Social History Household Members: Family Housing: House Do you presently have visiting nurse or other home services: No Alcohol intake: never Patient Tobacco Use Status: Never used Tobacco e-Cigarette/Vaping Use: Never Used service: No Current occupational status: retired Cognitive needs: No Hearing needs: No Vision needs: Yes Results Reviewed Results Reviewed: Date of Service: 07/08/23 EXAMINATION: MR ABDOMEN WITHOUT AND WITH CONTRAST CLINICAL INFORMATION: Follow-up left renal mass. COMPARISON: Abdominal MRI 11/27/2022. TECHNIQUE: MR abdomen was performed without and with use of 10 mL intravenous Gadavist gadolinium contrast. Postcontrast images are performed in multiphase dynamic sequences. Imaging was performed in 3 planes. FINDINGS: Evaluation is limited secondary to patient body habitus, coil artifact from respiratory motion. LUNG BASES: Partially imaged cardiomegaly. LIVER, GALLBLADDER, AND BILIARY TREE: The uppermost portion of the liver was not included within the field of view of the axial images, limiting evaluation. There is signal loss in the opposed phase dual echo images in the liver consistent with hepatic steatosis. Otherwise, liver is normal in morphology and size. No liver lesion. No biliary ductal dilatation. Cholelithiasis without findings to suspect acute cholecystitis. No biliary ductal dilatation. 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 Otherwise, there is normal signal attenuation throughout the pancreatic parenchyma without evidence of main ductal dilatation nor significant peripancreatic inflammatory changes. SPLEEN: A 1.8 cm inferior splenule is unchanged. ADRENAL GLANDS: Nodularity at the apex of both adrenal glands is unchanged measuring up to 1.2 cm with drop in signal intensity in the opposed phase dual echo images consistent with adenomas, for which no imaging follow-up is recommended. KIDNEYS AND URETERS: A 1.5 x 1.7 cm solid partially exophytic mass along the posterolateral surface of the mid pole left kidney is unchanged. A 1.4 cm T2 bright avascular Bosniak 1 cyst in the upper right kidney is unchanged. No new liver lesions. Symmetric nephrograms. No hydronephrosis. GASTROINTESTINAL TRACT: Nonobstructive bowel gas pattern. No abdominal ascites or fluid collection. ABDOMINAL WALL: No significant hernia is appreciated. LYMPH NODES: No lymphadenopathy. VASCULAR: Normal caliber abdominal aorta. OSSEOUS STRUCTURES: Degenerative changes of the spine. No acute or aggressive appearing osseous findings. ADDITIONAL FINDINGS: Only visualized on the large [id number] T2 coronal and sagittal images (series 3 and series 5) there is a 5.5 cm well-defined, homogeneous T2 bright cystic appearing lesion in the right adnexa, possibly originating from the right ovary which is increased in size from 4.5 cm. IMPRESSION: 1. Compared to most recent MRI from 11/27/2022, stable 1.7 cm solid renal mass in the mid pole of the left kidney. 2. Compared to 11/27/2022, increased size of a cystic appearing lesion projecting over the region of the right adnexa, incompletely characterized in this examination. Recommend further characterization with dedicated transabdominal and transvaginal pelvic ultrasound. 3. Hepatic steatosis. 4. Cholelithiasis without findings to suspect acute cholecystitis. Assessment & Plan Assessment & Plan (1) Left kidney mass: Code(s): N28.89 - Other specified disorders of kidney and ureter Plan Plan- continue to monitor renal mass, MRI abd in one year Patient Instructions: The patient had an opportunity to ask questions regarding treatment plan. All questions were answered. Imaging, Laboratory studies and physical exam results were discussed and reviewed in detail. No major barriers to understanding were identified. The patient expressed understanding and agreement with the above treatment plan. The patient is aware they should contact our office by phone for worsening of their current condition or the appearance of new symptoms. Compliance is encouraged with any medications and followup testing that is ordered. It is a privilege to be allowed the opportunity to participate in the urologic care of your patient. If you have any questions or concerns regarding treatment for the above conditions please do not hesitate to contact me. The office telephone contact is [phone]. This note is constructed in part using voice recognition software. While every effort has been made to ensure accuracy integrity engineer errors may have been included. Yours sincerely, Jose العلي MD Coding Level of Care Code Est Pt Level 3 (50911) Diagnoses Left kidney mass N28.89
== END 2023-07-12 14:44 | disposition home or self-care (01) ==
PROVIDERS: PCP Internal Medicine; Visit Provider Urology
DX: N28.89 Other specified disorders of kidney and ureter (principal)
CPT/HCPCS: 99213

== ENCOUNTER → 2023-07-12 13:51 | Outpatient (BNVA) | payer MEDICARE, MEDICAID, SELFPAY | PROVIDERS: PCP Internal Medicine; Visit Provider Urology | DX: N28.89 Other specified disorders of kidney and ureter (principal) | CPT/HCPCS: 99212 ==

== ENCOUNTER 2023-07-27 13:26 | Outpatient (AMB) | payer MEDICARE, MEDICAID, SELFPAY ==
[2023-07-27 13:27] VITALS: BP 128/66; PULSE 84; O2SAT 95; BMI 41.6
--- NOTE | 2023-07-27 13:27 | A.OFFPC_ITS ---
Vital Signs 07/27/23 13:27 Height 5 ft 6 in Weight 258 lb BMI 41.6 BP 128/66 Blood Pressure Location Lt brachial Position Sitting Pulse 84 Pulse Source Pulse Oximeter Pulse Oximetry (%) 95 Oxygen Delivery Method Room Air Intake Visit Reasons: Follow up to discuss some questions Intake Note: Pt is here today for a follow up visit. 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 Allergies atorvastatin [From Lipitor] Allergy (Unknown, Verified 07/27/23 13:28) Leg cramps ciprofloxacin [From Cipro] Allergy (Unknown, Verified 07/27/23 13:28) Stomach Upset ezetimibe [From Zetia] Allergy (Unknown, Verified 07/27/23 13:28) leg cramps hydrochlorothiazide [From Avalide] Allergy (Unknown, Verified 07/27/23 13:28) Stomach Upset infliximab [From Remicade] Allergy (Unknown, Verified 07/27/23 13:28) Infection irbesartan [From Avalide] Allergy (Unknown, Verified 07/27/23 13:28) Stomach Upset metformin Allergy (Unknown, Verified 07/27/23 13:28) nausea moxifloxacin [From Avelox] Allergy (Unknown, Verified 07/27/23 13:28) Stomach Upset nifedipine Allergy (Unknown, Verified 07/27/23 13:28) upset stomach pravastatin Allergy (Unknown, Verified 07/27/23 13:28) stomach upset rosuvastatin [From Crestor] Allergy (Unknown, Verified 07/27/23 13:28) Leg cramps terazosin [From Hytrin] Allergy (Unknown, Verified 07/27/23 13:28) Stomach Upset valsartan [From Diovan] Allergy (Unknown, Verified 07/27/23 13:28) Stomach Upset warfarin [WARFARIN] Allergy (Unknown, Verified 07/27/23 13:28) THROAT SWELLING Medication List - Last Reconciled 07/27/23 by Salud Lester MD acetaminophen 1,000 mg PO BID albuterol sulfate 90 mcg/actuation 2 puffs inhalation Q4H PRN albuterol sulfate 0.63 mg (3 mL) inhalation Q4-6H PRN ammonium lactate 12% 1 appl topical DAILY PRN apixaban (Eliquis) 5 mg PO BID ascorbic acid (vitamin C) 500 mg PO DAILY blood sugar diagnostic As directed blood sugar diagnostic (FreeStyle Test strips) check glucose once a day blood-glucose meter As directed budesonide-formoterol 160-4.5 mcg/actuation 1 puff inhalation BID compr.stocking,knee,long,x-lrg 10-20 mmHg diltiazem HCl ER 240 mg PO DAILY estradiol 0.01%(0.1mg/gram) (Estrace) 0.25 appful vaginal 2XW ezetimibe (Zetia) 10 mg PO DAILY folic acid 1 mg PO DAILY furosemide 40 mg PO BID gabapentin 300 mg PO BID glipizide 5 mg PO DAILY hospital bed As directed incontinence pad, liner, disp As directed levothyroxine 50 mcg PO QAM lidocaine 5% (Lidoderm) 1 patch topical DAILY lisinopril 5 mg PO BID meclizine 25 mg PO DAILY PRN metolazone 2.5 mg PO Q OTHER DAY mupirocin 2% 1 appl topical TID pantoprazole 40 mg PO DAILY@0600 potassium chloride ER 20 mEq (2 x 10 mEq) PO DAILY sertraline 50 mg PO DAILY sulfasalazine 1 g (2 x 500 mg) PO BID umeclidinium 62.5 mcg/actuation (Incruse Ellipta) 1 inh PO DAILY Tobacco use date assessed: 07/27/23 Fall risk assessment: No Falls in past year Last assessed Fall Risk: 07/27/23 Dental Screening Dental Screen Date: 07/27/23 Did you have a dental visit in the last 12 months?: No Did you have a dental problem in the last 6 months where you did not have access to dental care?: No Was dental information given to patient?: Patient has dentist HPI Follow up to discuss some questions HPI Details Patient presents for the follow-up of hypertension paroxysmal AFib congestive heart failure due to diastolic dysfunction type 2 diabetes hyperlipidemia. Patient complains of generalized joint pains and would like to be referred to a new cooking appliance repair technician. 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 patient has been taking sulfasalazine for the last 3 years. [facility] Medical History (Updated 07/27/23 @ 14:16 by Salud Lester MD) Ankle pain, right Hypokalemia Persistent atrial fibrillation Acute on chronic diastolic (congestive) heart failure LILY (obstructive sleep apnea) Acute respiratory failure with hypoxia Hypoxia (HFpEF) heart failure with preserved ejection fraction SOB (shortness of breath) Acute respiratory failure with hypoxia Depression Physical deconditioning Cervical radiculopathy due to degenerative joint disease of spine Venous insufficiency Recurrent pulmonary embolism Diabetes Hyperlipidemia Hemorrhoids Obesity Rheumatoid arthritis COPD (chronic obstructive pulmonary disease) Atrial fibrillation Hypertension Family History Father No problems noted. Mother No problems noted. Social History Household Members: Family Housing: House Do you presently have visiting nurse or other home services: No Alcohol intake: never Patient Tobacco Use Status: Never used Tobacco e-Cigarette/Vaping Use: Never Used service: No Current occupational status: retired Cognitive needs: No Hearing needs: No Vision needs: Yes Questionnaire PHQ-9 Over the last 2 weeks, how often have you been bothered by any of the following problems? 1. Little interest or pleasure in doing things: not at all 2. Feeling down, depressed, or hopeless: not at all 3. Trouble falling or staying asleep, or sleeping too much: not at all 4. Feeling tired or having little energy: not at all 5. Poor appetite or overeating: not at all 6. Feeling bad about yourself - or that you are a failure or have let yourself or your family down: not at all 7. Trouble concentrating on things, such as reading the newspaper or watching television: not at all 8. Moving or speaking so slowly that other people could have noticed. Or the opposite - being so fidgety or restless that you have been moving around a lot more than usual: not at all 9. Thoughts that you would be better off or of hurting yourself in some way: not at all Total score: 0 Depression Screening Interpretation: Negative Depression Screening Done: Yes Source: Developed by Drs. Gume Adam, Sandhya Chopra, Major Headley and colleagues, with an educational kimberlee from [employer]. Thrive Questionnaire Date Thrive assessed: 07/27/23 I am a: Patient What is your living situation today?: I have a steady place to live Within the past 12 months, did the food you bought not last and you didn't have the money to get more?: Never true Within the past 12 months, did you worry whether your food would run out before you got money to buy more?: Never true Do you have trouble paying for medicines?: No Do you have trouble getting transportation to medical appointments?: No Do you have trouble paying your heating and electricity bill?: No Do you have trouble taking care of your child, family member or friend?: No Do you have trouble with day-to-day activities such as bathing, preparing meals, shopping, managing finances, etc.?: No Are you currently unemployed and looking for a job?: No Are you interested in more education?: No Please select the resources that you would like help with: None Currently or been in a relationship where the following occur: no concerns reported THRIVE Score: 0 AUDIT C Alcohol Use Questionnaire (AUDIT-C) 1. How often do you have a drink containing alcohol?: Never 3. How often do you have six or more drinks on one occasion?: Never Total Score: 0 OTILIO-7 AMB Questionnaire OTILIO-7 Date OTILIO - 7 assessed: 07/27/23 Feeling nervous, anxious, or on edge: 0 = Not at all Not being able to stop or control worryin = Not at all Worrying too much about different things: 0 = Not at all Trouble relaxin = Not at all Being so restless that it is hard to sit still: 0 = Not at all Becoming easily annoyed or irritable: 0 = Not at all Feeling afraid as if something awful might happen: 0 = Not at all Total OTILIO-7 score (0-4 normal; 5-9 mild; 10-14 moderate; 15-21 severe): 0 Source: Developed by Drs. Gume Adam, Sandhya Chopra, Major Headley and colleagues, with an educational kimberlee from [employer]. Review of Systems Const All systems reviewed & are unremarkable except as noted in HPI and below Reports no additional complaints Eyes Reports no additional complaints ENT Reports no additional complaints Card Reports no additional complaints Resp Reports no additional complaints GI Reports no additional complaints Reports no additional complaints Physical exam (Primary Care) Vital Signs: Last Vital Signs Pulse 84 07/27/23 13:27 BP 128/66 07/27/23 13:27 Pulse Ox 95 07/27/23 13:27 Oxygen Delivery Method Room Air 07/27/23 13:27 BMI result Body Mass Index 41.6 Tobacco/Smoking Status: Tobacco use Status Tobacco use date assessed 07/27/23 07/27/23 13:28 Patient Tobacco Use Status Never used Tobacco 07/27/23 13:28 e-Cigarette/Vaping Use Never Used 07/27/23 13:28 PHQ-9: PHQ-9 Score PHQ-9: Total score 0 07/27/23 14:48 Depression Screening Interpretation: Negative Thrive Assessment: Date of Thrive Assessment Date Thrive assessed 07/27/23 07/27/23 13:38 Currently or been in a relationship where the following occur: no concerns reported Const General: no acute distress HENMT Head: Yes normal to inspection Face and sinus: Yes normal facial exam Neck Neck: Yes no lymphadenopathy and Yes supple Resp Effort & Inspection: normal respiratory effort Auscultation: diminished lung sounds Cardio Rhythm: regular rhythm Heart sounds: S1 normal heart sound present, S2 normal heart sound present and Murmur heart sound present systolic II/ GI Inspection: Yes normal to inspection Palpation (GI): Soft to palpation Percussion: Yes normal to percussion Auscultation: normal bowel sounds Extrem Other: 1+ pitting edema bilaterally and chronic venous stasis Assessment and Plan Assessment & Plan (1) Rheumatoid arthritis: Code(s): M06.9 - Rheumatoid arthritis, unspecified Plan: Referred to cooking appliance repair technician continue sulfasalazine (2) COPD (chronic obstructive pulmonary disease): Comment: ON SYMBICORT and INCRUSE Code(s): J44.9 - Chronic obstructive pulmonary disease, unspecified Qualifiers: COPD type: COPD with acute exacerbation Qualified Code(s): J44.1 - Chronic obstructive pulmonary disease with (acute) exacerbation Plan: Continue current inhalers (3) Diabetes: Comment: A1C goal less than 8 Code(s): E11.9 - Type 2 diabetes mellitus without complications Plan: ADA diet increase physical activity weight loss discussed with the patient she will return for fasting blood work (4) (HFpEF) heart failure with preserved ejection fraction: Comment: Echo 01/2021, severely increased left ventricle thickness, hyperdynamic LVEF, mild MS, myocardial perfusion nl 04/20 Code(s): I50.30 - Unspecified diastolic (congestive) heart failure Plan: Continue current medications and check echocardiogram (5) Atrial fibrillation: Comment: permanent Code(s): I48.91 - Unspecified atrial fibrillation Plan: Continue Eliquis and diltiazem for rate control (6) CKD (chronic kidney disease) stage 3, GFR 30-59 ml/min: Code(s): N18.30 - Chronic kidney disease, stage 3 unspecified Plan: Avoid nephrotoxins monitor renal function (7) SOB (shortness of breath): Code(s): R06.02 - Shortness of breath Orders: Orders Comprehensive [employer]. Panel Fast 2 Months E11.9 - Type 2 diabetes mellitus without complications, I50.30 - Unspecified diastolic (congestive) heart failure, M06.9 - Rheumatoid arthritis, unspecified, N18.30 - Chronic kidney disease, stage 3 unspecified CA echo transthoracic complete Today I50.30 - Unspecified diastolic (congestive) heart failure, R06.02 - Shortness of breath Hemoglobin A1c 2 Months E11.9 - Type 2 diabetes mellitus without complications, I50.30 - Unspecified diastolic (congestive) heart failure, M06.9 - Rheumatoid arthritis, unspecified, N18.30 - Chronic kidney disease, stage 3 unspecified Complete Blood Count Auto Diff 2 Months E11.9 - Type 2 diabetes mellitus without complications, I50.30 - Unspecified diastolic (congestive) heart failure, M06.9 - Rheumatoid arthritis, unspecified, N18.30 - Chronic kidney disease, stage 3 unspecified Lipid Panel 2 Months E11.9 - Type 2 diabetes mellitus without complications, I50.30 - Unspecified diastolic (congestive) heart failure, M06.9 - Rheumatoid arthritis, unspecified, N18.30 - Chronic kidney disease, stage 3 unspecified Microalbumin, Random (w Creat) 2 Months E11.9 - Type 2 diabetes mellitus without complications, I50.30 - Unspecified diastolic (congestive) heart failure, M06.9 - Rheumatoid arthritis, unspecified, N18.30 - Chronic kidney disease, stage 3 unspecified TSH reflex Free T4 2 Months E11.9 - Type 2 diabetes mellitus without complications, I50.30 - Unspecified diastolic (congestive) heart failure, M06.9 - Rheumatoid arthritis, unspecified, N18.30 - Chronic kidney disease, stage 3 unspecified C Reactive Protein 2 Months E11.9 - Type 2 diabetes mellitus without complications, I50.30 - Unspecified diastolic (congestive) heart failure, M06.9 - Rheumatoid arthritis, unspecified, N18.30 - Chronic kidney disease, stage 3 unspecified Vitamin D 25-OH Total 2 Months E11.9 - Type 2 diabetes mellitus without complications, I50.30 - Unspecified diastolic (congestive) heart failure, M06.9 - Rheumatoid arthritis, unspecified, N18.30 - Chronic kidney disease, stage 3 unspecified Referrals Rheumatology Referral M06.9 - Rheumatoid arthritis, unspecified Medications: New miscellaneous medical supply 1 ea miscellaneous .QD 1 ea 0RF lifeline Coding Level of Care Code Est Pt Level 4 (16805) Diagnoses Rheumatoid arthritis M06.9 COPD (chronic obstructive pulmonary disease) J44.1 COPD type: COPD with acute exacerbation Diabetes E11.9 (HFpEF) heart failure with preserved ejection fraction I50.30 Atrial fibrillation I48.91 CKD (chronic kidney disease) stage 3, GFR 30-59 ml/min N18.30 SOB (shortness of breath) R06.02
== END 2023-07-27 14:52 | disposition home or self-care (01) ==
PROVIDERS: PCP Internal Medicine; Visit Provider Internal Medicine
DX: M06.9 Rheumatoid arthritis, unspecified (principal); E11.22 Type 2 diabetes mellitus with diabetic chronic kidney disease; J44.1 Chronic obstructive pulmonary disease with (acute) exacerbation; N18.30 Chronic kidney disease, stage 3 unspecified; I50.30 Unspecified diastolic (congestive) heart failure; I48.91 Unspecified atrial fibrillation; R06.02 Shortness of breath
CPT/HCPCS: 99214

== ENCOUNTER → 2023-08-06 13:23 | Outpatient (REF) | payer MEDICARE, MEDICAID, SELFPAY ==
--- NOTE | 2023-08-06 13:25 | CA_ITS ---
Transthoracic Echocardiogram Patient (Last, First, Middle): Camille Andrade, Gender: Female Date of : 1940 Age: 82 Procedure Date: 08/06/2023 Procedure Type: Transthoracic Echocardiogram Location: OP Height: 170.18 cm Weight: 119.75 kg BSA: 2.28 m2 Heart Rate: bpm BP: 142 / 70 mmHg Non Profit Job Titles: TO Referring MD: Salud Lester MD Symptoms: I50.30 - Unspecified diastolic (congestive) heart failure Study Quality: Technically Difficult/Contrast Conclusions: - Normal left ventricular cavity size. There is severely increased left ventricular wall thickness. The left ventricular systolic function is hyperdynamic. The visually estimated ejection fraction is >70%. - Normal right ventricular cavity size. There is borderline right ventricular systolic function. - There is severe mitral annular calcification. - There is mild dilatation of the ascending aorta measuring 4.30 cm. Findings Procedure Information Contrast agent, definity, is being given per protocol without apparent complications. The study quality is limited by patients body habitus. Left Ventricle Normal left ventricular cavity size. There is severely increased left ventricular wall thickness. The left ventricular systolic function is hyperdynamic. The visually estimated ejection fraction is >70%. There is no evidence of regional wall motion abnormalities. Diastolic function is indeterminate on the basis of available data. Right Ventricle Normal right ventricular cavity size. There is borderline right ventricular systolic function. Atria The left atrium is severely dilated. Aortic Valve The aortic valve was not well visualized. There is no aortic valve stenosis. There is no aortic valve regurgitation. Mitral Valve There is severe mitral annular calcification. There is no mitral valve regurgitation. There is no mitral valve stenosis. Pulmonic Valve The pulmonic valve is likely normal. Tricuspid Valve The tricuspid valve was not well visualized. There is no tricuspid valve regurgitation. Tricuspid regurgitation envelope is inadequate for calculation of right ventricular systolic pressure. Normal right atrial pressure. Great Vessels There is mild dilatation of the ascending aorta measuring 4.30 cm. Venous The inferior vena cava is normal in size and collapses greater than 50% with inspiration. Pericardium/Pleural There is no evidence of pericardial effusion. Prior Study Comparison No significant change compared to prior study dated: 11/27/2022. Measurements 2D Linear Measurements IVSd: 1.87 0.6-0.9/0.6-1.0 cm LVIDd: 4.54 3.9-5.3/4.2-5.9 cm LVIDd Index: 1.99 2.4-3.2/2.2-3.1 cm/m2 LVIDs: 3.29 2.0-3.6 cm LVPWd: 1.73 0.7-1.1 cm LV Mass: 463.61 67-162/88-224 g LV Mass Index: 203.34 43-95/49-115 g/m2 LVOT Diam: 2.00 3.0+(-)1.3 cm Mitral Valve MV VTI: 0.53 MV Pk Malik: 1.83 MV Mn Malik: 1.02 MV Pk Grad: 13.00 MV Mn Grad: 6.00 MV Pk E: 1.66 MV Decel Time: 358.00 E'Lateral: 5.37 E'Medial: 4.17 E/E' Med: 39.80 E/E' Lat: 30.90 PHT: 105.00 MVA PHT: 2.10 MVA Continuity: 1.39 Decel [place]: 4.70 Aortic Valve AoV Pk Malik: 1.41 AoV Pk Grad: 8.00 LVOT LVOT Pk Malik: 1.13 LVOT Mn Malik: 0.77 LVOT VTI: 0.24 LVOT Pk Grad: 5.00 LVOT Mn Grad: 3.00 LVOT Diam: 2.00 LVOT Area: 3.14 Diastolic Function MV Pk E: 1.66 E'Medial: 4.17 E/E' Med: 39.80 E' Laterial: 5.37 E/E' Lat: 30.90 Right Ventricle TVS' Malik: 8.49 Tricuspid Valve RA Press: 3.00 Great Vessels Aorta Sinus of Valsalva: 3.50 2.0-3.5 cm Ao Asc: 4.30 2.1-3.4 cm Updated in Other Vendor System with Status of Final Krystian Vidal MD electronically signed on 08/08/2023 5:30:49 PM with status of Final
== END ==
LOC: HO.CARD 13:23
PROVIDERS: PCP Internal Medicine; Visit Provider Internal Medicine
DX: I50.30 Unspecified diastolic (congestive) heart failure (principal); R06.02 Shortness of breath
CPT/HCPCS: 93306; Q9957

== ENCOUNTER → 2023-08-06 13:25 | Outpatient (BNV) | payer MEDICARE, MEDICAID, SELFPAY | PROVIDERS: PCP Internal Medicine; Visit Provider Internal Medicine Cardiovascular Disease | DX: I34.81 Nonrheumatic mitral (valve) annulus calcification (principal) | CPT/HCPCS: 93306 ==

== ENCOUNTER → 2023-08-12 10:01 | Outpatient (BNVA) | payer MEDICARE, MEDICAID, SELFPAY | PROVIDERS: PCP Internal Medicine; Visit Provider Nurse Practitioner Family ==

== ENCOUNTER 2023-09-01 12:37 | Outpatient (REF) | payer MEDICARE, MEDICAID, SELFPAY ==
--- NOTE | ~2023-09-01 | US_ITS ---
EXAMINATION: US PELVIS, LIMITED/FOLLOW UP CLINICAL INFORMATION: Ovarian cyst. Postmenopausal. COMPARISON: MRI abdomen November 10, 2023. TECHNIQUE: Patient declined transvaginal ultrasound images. Limited visualization due to bowel gas. Transabdominal ultrasound images of the pelvis were obtained. FINDINGS: Transabdominal ultrasound images severely limited due to bowel gas. The uterus measures 7.8 x 2.8 x 0.4 cm and is anteverted. No discrete fibroids are appreciated. Limited visualization of endometrium. Imaged portions of endometrium with thickness of 2 mm. Right adnexal 5.5 x 4.7 x 5.6 cm cyst appears simple. No discrete right ovarian tissue visualized. Bilateral ovaries are not visualized. Limited visualization due to bowel gas. No significant free fluid. US/US pelvic limited IMPRESSION: 1. Right adnexal 5.6 cm cyst appears simple. No discrete right ovarian tissue visualized. MRI abdomen of 07/12/2023 demonstrated a 5.5 cm right adnexal cystic lesion, possibly originating from the right ovary. Bilateral ovaries are not visualized. Limited visualization due to bowel gas. Patient declined transvaginal ultrasound images. 2. Gynecologic consultation and possible additional imaging with MRI recommended.
== END 2023-09-01 12:38 | disposition home or self-care (01) ==
LOC: HO.HMGCX 12:37
PROVIDERS: PCP Internal Medicine; Visit Provider Internal Medicine
DX: N95.9 Unspecified menopausal and perimenopausal disorder (principal); N83.201 Unspecified ovarian cyst, right side
CPT/HCPCS: 76857

== ENCOUNTER 2023-09-15 15:10 | Outpatient (AMB) | payer MEDICARE, MEDICAID, SELFPAY ==
--- NOTE | 2023-09-15 15:29 | A.OFFVIS_ITS ---
Intake Vital Signs 09/15/23 15:32 Height 5 ft 6 in Weight 259 lb 7.745 oz BMI 41.9 BP 160/90 H Blood Pressure Location Rt brachial Position Sitting Pulse 66 Pulse Source Pulse Oximeter Pulse Oximetry (%) 93 Oxygen Delivery Method Room Air Intake Visit Reasons: RA Intake Note: New pt presents today for RA consult. Initially booked with Melodie, but pt requested to see . Has c/o pain in every joint Process Analyst Required: Yes Process Analyst Name: Daughter- form signed Accompanied by: Daughter Soo Allergies atorvastatin [From Lipitor] Allergy (Unknown, Verified 09/15/23 15:36) Leg cramps ciprofloxacin [From Cipro] Allergy (Unknown, Verified 09/15/23 15:36) Stomach Upset ezetimibe [From Zetia] Allergy (Unknown, Verified 09/15/23 15:36) leg cramps hydrochlorothiazide [From Avalide] Allergy (Unknown, Verified 09/15/23 15:36) Stomach Upset infliximab [From Remicade] Allergy (Unknown, Verified 09/15/23 15:36) Infection irbesartan [From Avalide] Allergy (Unknown, Verified 09/15/23 15:36) Stomach Upset metformin Allergy (Unknown, Verified 09/15/23 15:36) nausea moxifloxacin [From Avelox] Allergy (Unknown, Verified 09/15/23 15:36) Stomach Upset nifedipine Allergy (Unknown, Verified 09/15/23 15:36) upset stomach pravastatin Allergy (Unknown, Verified 09/15/23 15:36) stomach upset rosuvastatin [From Crestor] Allergy (Unknown, Verified 09/15/23 15:36) Leg cramps terazosin [From Hytrin] Allergy (Unknown, Verified 09/15/23 15:36) Stomach Upset valsartan [From Diovan] Allergy (Unknown, Verified 09/15/23 15:36) Stomach Upset warfarin [WARFARIN] Allergy (Unknown, Verified 09/15/23 15:37) Anaphylaxis Medication List - Last Reconciled 09/15/23 by Hi Mccollum MD acetaminophen 1,000 mg PO BID albuterol sulfate 90 mcg/actuation 2 puffs inhalation Q4H PRN albuterol sulfate 0.63 mg (3 mL) inhalation Q4-6H PRN ammonium lactate 12% 1 appl topical DAILY PRN apixaban (Eliquis) 5 mg PO BID ascorbic acid (vitamin C) 500 mg PO DAILY blood sugar diagnostic As directed blood sugar diagnostic (FreeStyle Test strips) check glucose once a day blood-glucose meter As directed budesonide-formoterol 160-4.5 mcg/actuation 1 puff inhalation BID compr.stocking,knee,long,x-lrg 10-20 mmHg diltiazem HCl ER 240 mg PO DAILY estradiol 0.01%(0.1mg/gram) (Estrace) 0.25 appful vaginal 2XW ezetimibe (Zetia) 10 mg PO DAILY folic acid 1 mg PO DAILY furosemide 40 mg PO BID gabapentin 300 mg PO BID glipizide 5 mg PO DAILY hospital bed As directed incontinence pad, liner, disp As directed levothyroxine 50 mcg PO QAM lidocaine 5% (Lidoderm) 1 patch topical DAILY lisinopril 5 mg PO BID meclizine 25 mg PO DAILY PRN metolazone 2.5 mg PO Q OTHER DAY miscellaneous medical supply 1 ea miscellaneous .QD mupirocin 2% 1 appl topical TID pantoprazole 40 mg PO DAILY@0600 potassium chloride ER 20 mEq (2 x 10 mEq) PO DAILY sertraline 50 mg PO DAILY sulfasalazine 1 g (2 x 500 mg) PO BID umeclidinium 62.5 mcg/actuation (Incruse Ellipta) 1 inh PO DAILY HPI HPI Comments History of Present Illness Details This is an 82-year-old female who presents for evaluation of rheumatoid arthritis. Patient presents with her daughter. She has a poor historian. She stated that she was diagnosed with RA in her 60s. She states that she has been on different medicines and usually they would be discontinued due to a side effect. Currently she has been on sulfasalazine 1000 mg Twice daily since around 2019. Prescribed by Dr. Salazar and continued by her PCP. Arava was in effective. She could not tolerate methotrexate and hydroxychloroquine. She developed right foot osteomyelitis once after Remicade was started. She states that she has diffuse pain. She has pain in her hands, her neck, shoulders, back, knees. She stated that she had reconstructive surgery for her right foot years ago. She gets periodic gel injections for both knees every 6 months. 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 The prescription dates back to 2006. She takes it as needed and it is helpful She has a history of blood clot and is on Eliquis regularly. Most recent DVT was around 9 years ago. Patient also has history of COPD. She uses 2 L of oxygen as needed. She never smoked. She also has history of obstructive sleep apnea and uses a CPAP. She is unaware of any family history of an autoimmune rheumatic disease. [facility] Medical History Ankle pain, right Hypokalemia Persistent atrial fibrillation Acute on chronic diastolic (congestive) heart failure LILY (obstructive sleep apnea) Acute respiratory failure with hypoxia Hypoxia (HFpEF) heart failure with preserved ejection fraction SOB (shortness of breath) Acute respiratory failure with hypoxia Depression Physical deconditioning Cervical radiculopathy due to degenerative joint disease of spine Venous insufficiency Recurrent pulmonary embolism Diabetes Hyperlipidemia Hemorrhoids Obesity Rheumatoid arthritis COPD (chronic obstructive pulmonary disease) Atrial fibrillation Hypertension Family History Father No problems noted. Mother No problems noted. Social History Household Members: Family Housing: House Do you presently have visiting nurse or other home services: No Alcohol intake: never Patient Tobacco Use Status: Never used Tobacco e-Cigarette/Vaping Use: Never Used service: No Current occupational status: retired Cognitive needs: No Hearing needs: No Vision needs: Yes Review of Systems Const Reports fatigue, Reports weakness and Reports weight gain Eyes Reports dry eyes and Reports itchy eyes ENT Reports dizziness, Reports dry mouth and Reports neck pain Card Reports irregular heart rhythm and Reports dyspnea Resp Reports dyspnea and Reports wheezing GI Reports heartburn Musc Reports back pain, Reports deformity, Reports arthralgias, Reports joint swelling, Reports neck pain and Reports stiffness Skin/Breast Reports unusual bruising Neuro Reports dizziness and Reports weakness Endo Reports fatigue Aller/Immun Reports itchy eyes and Reports wheezing Physical Exam Vital Signs: Last Vital Signs Pulse 66 09/15/23 15:32 BP 160/90 H 09/15/23 15:32 Pulse Ox 93 09/15/23 15:32 Oxygen Delivery Method Room Air 09/15/23 15:32 BMI result Body Mass Index 41.9 Const General: cooperative, healthy appearing and comfortable Nutritional Appearance: obese morbidly obese Orientation/consciousness: patient oriented x3 Limitations: no limitations HEENT Head: Yes normocephalic and Yes atraumatic Mouth: moist mucous membranes Resp Effort & Inspection: normal respiratory effort and able to speak in complete sentences Auscultation: diminished lung sounds Skin General skin exam: no rashes or lesions noted Neuro General: patient oriented x3 Extrem Other: Bilateral wrist tenderness and pain with flexion and extension Bilateral squaring of 1st CMC joints Prominence and synovial thickening of MCPs bilaterally Mild flexion contracture and ulnar deviation at the MCPs bilaterally Mild flexion contracture at the PIP is Prominent Heberden's and Lorraine's nodes bilaterally Bilateral reduced computer compositor strength Minimal flexion deformity of both elbows bilaterally Significantly reduced range of motion of both shoulders Significant right shoulder crepitus Normal nailfold capillaroscopy Significant knee crepitus bilaterally Crowding of toes on the left Bilateral bunions Fibular deviation of right foot toes Assessment & Plan Assessment & Plan (1) Rheumatoid arthritis: Comment: +RF++CCP dx around 1999 gold salts. Not tolerated Methotrexate not tolerated Arava ineffective Hydroxychloroquine not tolerated Remicade for 3 months, left foot osteomyelitis SSZ around 2019 partially effective Code(s): M06.9 - Rheumatoid arthritis, unspecified Qualifiers: Rheumatoid arthritis location: multiple sites Rheumatoid factor presence: with rheumatoid factor Qualified Code(s): M05.79 - Rheumatoid arthritis with rheumatoid factor of multiple sites without organ or systems involvement Plan: This is an 82-year-old female with seropositive deforming RA who presents as a new patient for me. She is currently on sulfasalazine 1000 mg Twice daily. On exam patient has multiple pain for and tender joints. Likely the majority of her complaints are related to degenerative arthritis. However there might be some residual RA disease activity. Given patient's comorbidities she would not be an ideal candidate for multiple biologic therapies. Check labs today. If safety labs are unremarkable, will plan to increase sulfasalazine to 1500 mg Twice daily Labs before next visit 2 months (2) On sulfasalazine therapy: Code(s): Z79.899 - Other long-term (current) drug therapy Plan: Monitor safety labs periodically (3) Generalized osteoarthritis: Code(s): M15.9 - Polyosteoarthritis, unspecified Plan: Patient has generalized osteoarthritis. She is on gabapentin 300 mg Twice daily which is reasonable. I suggested pain management evaluation Plan I spent 47 minutes reviewing patient's chart, evaluating patient, ordering diagnostic workup, counseling patient and documenting in the chart Orders: Orders Complete Blood Count Auto Diff Today M06.9 - Rheumatoid arthritis, unspecified Hepatitis A,B,C Profile Today Z11.59 - Encounter for screening for other viral diseases T Spot TB Today Z11.7 - Encounter for testing for latent tuberculosis infection Protein Electrophoresis, Serum Today M06.9 - Rheumatoid arthritis, unspecified JANN Reflex Titer and Pattern Today M32.9 - Systemic lupus erythematosus, unspecified Anti Extractable Nuclear Ag Today M32.9 - Systemic lupus erythematosus, unspecified Complement C3 Today M32.9 - Systemic lupus erythematosus, unspecified Complement C4 Today M32.9 - Systemic lupus erythematosus, unspecified Sjogren's Antibodies Today M32.9 - Systemic lupus erythematosus, unspecified UA w Microscopic Today M32.9 - Systemic lupus erythematosus, unspecified Uric Acid Today M10.9 - Gout, unspecified Comprehensive Met. Panel Today M06.9 - Rheumatoid arthritis, unspecified C Reactive Protein Today M06.9 - Rheumatoid arthritis, unspecified Erythrocyte Sedimentation Rate Today M06.9 - Rheumatoid arthritis, unspecified Immunofixation Pnl, Serum Today M06.9 - Rheumatoid arthritis, unspecified Anti DNA DS Antibody Today M32.9 - Systemic lupus erythematosus, unspecified DNA Double Stranded-Crithidia Today M32.9 - Systemic lupus erythematosus, unspecified Protein Creatinine Ratio, Ur Today M32.9 - Systemic lupus erythematosus, unspecified Complete Blood Count Auto Diff 2 Months Z79.899 - Other long-term (current) drug therapy Comprehensive Met. Panel 2 Months Z79.899 - Other equipment operator intermodal yard (current) drug therapy C Reactive Protein 2 Months Z79.899 - Other long-term (current) drug therapy Erythrocyte Sedimentation Rate 2 Months Z79.899 - Other equipment operator intermodal yard (current) drug therapy Coding Level of Care Code New Pt Level 4 (68895) Diagnoses Rheumatoid arthritis involving multiple sites with positive rheumatoid factor M05.79 Rheumatoid arthritis location: multiple sites Rheumatoid factor presence: with rheumatoid factor On sulfasalazine therapy Z79.899 Generalized osteoarthritis M15.9
[2023-09-15 15:32] VITALS: BP 160/90; PULSE 66; O2SAT 93; BMI 41.9
== END 2023-09-15 16:28 | disposition home or self-care (01) ==
PROVIDERS: PCP Internal Medicine; Visit Provider Student in an Organized Health Care Education/Training Program
DX: M05.79 Rheumatoid arthritis with rheumatoid factor of multiple sites without organ or systems involvement (principal); Z79.899 Other long term (current) drug therapy; M15.9 Polyosteoarthritis, unspecified
CPT/HCPCS: 99204

== ENCOUNTER → 2023-09-15 15:10 | Outpatient (BNVA) | payer MEDICARE, MEDICAID, SELFPAY | PROVIDERS: PCP Internal Medicine; Visit Provider Student in an Organized Health Care Education/Training Program | DX: M05.79 Rheumatoid arthritis with rheumatoid factor of multiple sites without organ or systems involvement (principal); M15.9 Polyosteoarthritis, unspecified; Z79.899 Other long term (current) drug therapy | CPT/HCPCS: 99202 ==

== ENCOUNTER 2023-09-16 13:22 | Outpatient (REF) | payer MEDICARE, MEDICAID, SELFPAY ==
[2023-09-16 13:46] LABS: MANUAL DIFF FLAG NO
[2023-09-16 14:13] LABS: Basophils Percent Auto 0.6 % (0-2); Eosinophils Absolute Auto 0.1 X10*3/uL (0.0-0.4); Eosinophils Percent Auto 1.5 % (0-4); Hematocrit 42.3 % (37.0-47.0); Hemoglobin 13.7 g/dl (12.0-16.0); Imm Gran Abs Auto 0.02 X10*3/uL (0.00-0.03); Imm Gran Pct Auto 0.3 % (0.0-0.4); Lymphocytes Percent Auto 30.8 % (20-40); Mean Corpuscular HGB Conc 32.4 g/dl (31.0-35.0); Mean Corpuscular Hemoglobin 32.1 pg (27.0-33.0); Mean Corpuscular Volume 99.1 fL (80.0-98.0); Mean Platelet Volume 11.5 fL (9.4-12.3); Monocytes Absolute Auto 0.6 X10*3/uL (0.1-1.2); Monocytes Percent Auto 8.8 % (2-11); Neutrophils Absolute Auto 3.8 x10*3/uL (2.0-8.3); Platelet Count 194 X10*3/uL (160-400); Red Blood Count 4.27 X10*6/uL (4.20-5.50); Red Cell Distribution Width 12.6 % (11.0-16.0); White Blood Count 6.6 X10*3/uL (4.8-10.8)
[2023-09-16 14:19] LABS: Appearance Urine Clear; Color Urine Yellow; Glucose Urine UA Negative (Negative); Leukocyte Esterase Urine Moderate (2+) (Negative); Nitrite Urine Negative (Negative); PH 6.5 (5.0-9.0); Specific Gravity - Urine 1.015 (1.005-1.025); UMIC TRIGGER UA YES; Urine Blood Negative (Negative); Urine Ketones Negative (Negative); Urine Protein Negative (Neg-Trace)
[2023-09-16 14:37] LABS: Bacteria Urine None Seen (None Seen); Hyaline Casts Urine 0-2 /LPF (0-2); RBC Urine 0-2 /HPF (0-2); Squamous Epithelial Cell Urine 0-2 /HPF (0-2); WBC Urine 0-5 /HPF (0-5)
[2023-09-16 14:50] LABS: Alanine Aminotransferase 12 U/L (0-31); Albumin Level 4.1 g/dL (3.5-5.0); Alkaline Phosphatase 87 U/L (39-117); Anion Gap 12 (12-20); Aspartate Amino Transferase 17 U/L (5-31); Bilirubin Total 0.4 mg/dL (0.0-1.0); Blood Urea Nitrogen 19 mg/dL (9-16); C Reactive Protein 0.46 mg/dL (< or = 0.50); Calcium 9.8 mg/dL (8.4-10.2); Carbon Dioxide 33 mmol/L (22-29); Chloride 102 mmol/L (96-108); Estimated Glomerular Filt Rate > 60; Glucose Random 94 mg/dL (60-115); Potassium 3.9 mmol/L (3.3-5.1); Sodium 143 mmol/L (135-145); Total Protein 7.9 g/dL (6.5-8.0); Uric Acid 9.1 mg/dL (2.4-5.7)
[2023-09-16 14:57] LABS: Erythrocyte Sedimentation Rate 26 MM/HR (0-20)
[2023-09-16 15:02] LABS: Creatinine Urine 65.26 mg/dL; Protein/Creatinine Ratio, Ur 0.12 (<0.2); Total Protein Urine Random 8 mg/dL (<12)
[2023-09-17 07:36] LABS: HBS Num1 0.42 mIU/mL (0-7.99); HBc Num1 0.07 S/CO (0.00-0.79); HBsAGNum1 1.29 S/CO (0.00-0.99); Hepatitis A Antibody IgM 0.59 Index (0-0.79); Hepatitis B Core Antibody Nonreactive (Nonreactive); ~HepC Num1 0.09 S/CO (0.00-0.79); ~Hepatitis A Antibody IgM Nonreactive (Nonreactive); ~Hepatitis B Surface Antibody NONREACTIVE (Nonreactive); ~Hepatitis C Antibody Nonreactive (Nonreactive)
[2023-09-17 10:21] LABS: HBsAGNum2 Reactive; HBsAGNum3 Reactive; Hepatitis B Surface Antigen Retest CNFM (Negative)
[2023-09-17 15:44] LABS: Complement C3 144 mg/dL
[2023-09-17 20:28] LABS: Anti DNA DS Antibody 1 IU/mL; Antibody to SS-A Antigen <1.0 NEG AI (<1.0 NEG); Antibody to SS-B Antigen <1.0 NEG AI (<1.0 NEG); SM/Ribonucleoprotein Ab <1.0 NEG AI (<1.0 NEG); Smith Protein <1.0 NEG AI (<1.0 NEG)
[2023-09-19 12:58] LABS: TS Negative Control Passed; TS Panel A 0; TS Panel B 0; TS Positive Control Passed; TSpotTB Negative (Negative)
[2023-09-20 13:18] LABS: HBsAG NON-REACTIVE
[2023-09-21 12:48] LABS: IgA 583 mg/dL (70-320); IgG 1428 mg/dL (600-1540); IgM 94 mg/dL (50-300)
[2023-09-21 12:53] LABS: Anti Nuclear Antibody Pattern Nuclear, Homogeneous; Anti Nuclear Antibody Screen POSITIVE (NEGATIVE); Anti Nuclear Antibody Titer 1:40 titer
[2023-09-21 14:54] LABS: DNAds, Crithidia Antibody Negative (Negative)
[2023-09-21 16:49] LABS: Prot Elec - Albumin 4.2 g/dL (3.8-4.8); Prot Elec - Alpha1 0.3 g/dL (0.2-0.3); Prot Elec - Alpha2 0.7 g/dL (0.5-0.9); Prot Elec - Beta 1 0.5 g/dL (0.4-0.6); Prot Elec - Beta 2 0.6 g/dL (0.2-0.5); Prot Elec - Gamma 1.3 g/dL (0.8-1.7); Prot Elec - Total Protein 7.5 g/dL (6.1-8.1)
== END 2023-09-16 13:23 | disposition home or self-care (01) ==
LOC: HO.LAB 13:22
PROVIDERS: PCP Internal Medicine; Visit Provider Student in an Organized Health Care Education/Training Program
DX: Z11.59 Encounter for screening for other viral diseases (principal); Z11.7 Encounter for testing for latent tuberculosis infection; M32.9 Systemic lupus erythematosus, unspecified; M06.9 Rheumatoid arthritis, unspecified; M10.9 Gout, unspecified; Z72.89 Other problems related to lifestyle
CPT/HCPCS: 36415; 80053; 81001; 82570; 82784; 84156; 84165; 84550; 85025; 85652; 86038; 86039; 86140; 86160; 86225; 86235; 86255; 86334; 86481; 86704; 86706; 86709; 86803; 87340

== ENCOUNTER 2023-09-24 09:45 | Outpatient (AMB) | payer MEDICARE, MEDICAID, SELFPAY ==
--- NOTE | 2023-09-24 09:55 | MHC.PC.OV ---
Vital Signs 09/24/23 09:59 Height 5 ft 6 in Weight 258 lb BMI 41.6 BP 126/62 Blood Pressure Location Rt brachial Position Sitting Pulse 78 Pulse Source Pulse Oximeter Pulse Oximetry (%) 96 Oxygen Delivery Method Room Air Intake Visit Reasons: 6 Month follow up Intake Note: Pt is here today for 6 months follow up visit. Allergies atorvastatin [From Lipitor] Allergy (Unknown, Verified 09/24/23 10:01) Leg cramps ciprofloxacin [From Cipro] Allergy (Unknown, Verified 09/24/23 10:01) Stomach Upset ezetimibe [From Zetia] Allergy (Unknown, Verified 09/24/23 10:01) leg cramps hydrochlorothiazide [From Avalide] Allergy (Unknown, Verified 09/24/23 10:01) Stomach Upset infliximab [From Remicade] Allergy (Unknown, Verified 09/24/23 10:01) Infection irbesartan [From Avalide] Allergy (Unknown, Verified 09/24/23 10:01) Stomach Upset metformin Allergy (Unknown, Verified 09/24/23 10:01) nausea moxifloxacin [From Avelox] Allergy (Unknown, Verified 09/24/23 10:01) Stomach Upset nifedipine Allergy (Unknown, Verified 09/24/23 10:01) upset stomach pravastatin Allergy (Unknown, Verified 09/24/23 10:01) stomach upset rosuvastatin [From Crestor] Allergy (Unknown, Verified 09/24/23 10:01) Leg cramps terazosin [From Hytrin] Allergy (Unknown, Verified 09/24/23 10:01) Stomach Upset valsartan [From Diovan] Allergy (Unknown, Verified 09/24/23 10:01) Stomach Upset warfarin [WARFARIN] Allergy (Unknown, Verified 09/24/23 10:01) Anaphylaxis Medication List - Last Reconciled 09/24/23 by Salud Lester MD acetaminophen 1,000 mg PO BID albuterol sulfate 90 mcg/actuation 2 puffs inhalation Q4H PRN albuterol sulfate 0.63 mg (3 mL) inhalation Q4-6H PRN ammonium lactate 12% 1 appl topical DAILY PRN apixaban (Eliquis) 5 mg PO BID ascorbic acid (vitamin C) 500 mg PO DAILY blood sugar diagnostic As directed blood sugar diagnostic (FreeStyle Test strips) check glucose once a day blood-glucose meter As directed budesonide-formoterol 160-4.5 mcg/actuation 1 puff inhalation BID compr.stocking,knee,long,x-lrg 10-20 mmHg diltiazem HCl ER 240 mg PO DAILY estradiol 0.01%(0.1mg/gram) (Estrace) 0.25 appful vaginal 2XW ezetimibe (Zetia) 10 mg PO DAILY folic acid 1 mg PO DAILY furosemide 40 mg PO BID gabapentin 300 mg PO BID glipizide 5 mg PO DAILY hospital bed As directed incontinence pad, liner, disp As directed levothyroxine 50 mcg PO QAM lidocaine 5% (Lidoderm) 1 patch topical DAILY lisinopril 5 mg PO BID meclizine 25 mg PO DAILY PRN metolazone 2.5 mg PO Q OTHER DAY miscellaneous medical supply 1 ea miscellaneous .QD mupirocin 2% 1 appl topical TID pantoprazole 40 mg PO DAILY@0600 potassium chloride ER 20 mEq (2 x 10 mEq) PO DAILY sertraline 50 mg PO DAILY sulfasalazine 1 g (2 x 500 mg) PO BID umeclidinium 62.5 mcg/actuation (Incruse Ellipta) 1 inh PO DAILY Tobacco use date assessed: 07/27/23 Dental Screening Dental Screen Date: 07/27/23 HPI 6 Month follow up HPI Details Pt presents for f/u HTN, AFIB, DM 2, hyperlipid, hypothyroid stable on meds. 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 She has been taking sulfasalazine with some relief. Chronic anxiety stable on sertraline [facility] Medical History Ankle pain, right Hypokalemia Persistent atrial fibrillation Acute on chronic diastolic (congestive) heart failure LILY (obstructive sleep apnea) Acute respiratory failure with hypoxia Hypoxia (HFpEF) heart failure with preserved ejection fraction SOB (shortness of breath) Acute respiratory failure with hypoxia Depression Physical deconditioning Cervical radiculopathy due to degenerative joint disease of spine Venous insufficiency Recurrent pulmonary embolism Diabetes Hyperlipidemia Hemorrhoids Obesity Rheumatoid arthritis COPD (chronic obstructive pulmonary disease) Atrial fibrillation Hypertension Family History Father No problems noted. Mother No problems noted. Social History Household Members: Family Housing: House Do you presently have visiting nurse or other home services: No Alcohol intake: never Patient Tobacco Use Status: Never used Tobacco e-Cigarette/Vaping Use: Never Used service: No Current occupational status: retired Cognitive needs: No Hearing needs: No Vision needs: Yes Questionnaire Thrive Questionnaire Date Thrive assessed: 07/27/23 OTILIO-7 AMB Questionnaire OTILIO-7 Date OTILIO - 7 assessed: 07/27/23 Source: Developed by Drs. Gume Adam, Sandhya Chopra, Major Headley and colleagues, with an educational [email or web address] from [employer]. Review of Systems Const All systems reviewed & are unremarkable except as noted in HPI and below Eyes Reports no additional complaints ENT Reports no additional complaints Card Reports no additional complaints Resp Reports no additional complaints GI Reports no additional complaints Reports no additional complaints Physical exam (Primary Care) Vital Signs: Last Vital Signs Pulse 78 09/24/23 09:59 BP 126/62 09/24/23 09:59 Pulse Ox 96 09/24/23 09:59 Oxygen Delivery Method Room Air 09/24/23 09:59 BMI result Body Mass Index 41.6 Tobacco/Smoking Status: Tobacco use Status Tobacco use date assessed 07/27/23 09/24/23 09:55 Patient Tobacco Use Status Never used Tobacco 09/24/23 09:55 e-Cigarette/Vaping Use Never Used 09/24/23 09:55 Thrive Assessment: Date of Thrive Assessment Date Thrive assessed 07/27/23 09/24/23 09:55 Const General: no acute distress HENMT Ears: hearing grossly normal bilaterally Throat: Yes posterior oropharynx normal Eyes General: appearance normal, both eyes and all related structures Resp Effort & Inspection: normal respiratory effort Auscultation: clear to auscultation bilaterally Cardio Rhythm: regular rhythm Heart sounds: S1 normal heart sound present and S2 normal heart sound present GI Inspection: Yes normal to inspection Palpation (GI): Soft to palpation Percussion: Yes normal to percussion Auscultation: normal bowel sounds Assessment and Plan Assessment & Plan (1) Rheumatoid arthritis: Comment: +RF++CCP dx around 1999 gold salts. Not tolerated Methotrexate not tolerated Arava ineffective Hydroxychloroquine not tolerated Remicade for 3 months, left foot osteomyelitis SSZ around 2019 partially effective Code(s): M06.9 - Rheumatoid arthritis, unspecified Qualifiers: Rheumatoid arthritis location: multiple sites Rheumatoid factor presence: with rheumatoid factor Qualified Code(s): M05.79 - Rheumatoid arthritis with rheumatoid factor of multiple sites without organ or systems involvement Plan: Follow-up with rheumatology (2) COPD (chronic obstructive pulmonary disease): Comment: ON SYMBICORT and INCRUSE Code(s): J44.9 - Chronic obstructive pulmonary disease, unspecified Qualifiers: COPD type: COPD with acute exacerbation Qualified Code(s): J44.1 - Chronic obstructive pulmonary disease with (acute) exacerbation Plan: Continue inhalers (3) Diabetes: Comment: A1C goal less than 8 Code(s): E11.9 - Type 2 diabetes mellitus without complications Plan: A1c was 5.9, ADA diet regular physical activity discussed with the patient (4) CKD (chronic kidney disease) stage 3, GFR 30-59 ml/min: Code(s): N18.30 - Chronic kidney disease, stage 3 unspecified Plan: Monitor renal function and avoid nephrotoxins (5) (HFpEF) heart failure with preserved ejection fraction: Comment: Echo 01/2021, severely increased left ventricle thickness, hyperdynamic LVEF, mild MS, myocardial perfusion nl 04/20 Code(s): I50.30 - Unspecified diastolic (congestive) heart failure Plan: Continue current medications (6) Atrial fibrillation: Comment: permanent Code(s): I48.91 - Unspecified atrial fibrillation Plan: Rate controlled on diltiazem and anticoagulated on Eliquis, patient will follow-up in 6 months with a fasting labs before Orders: Orders Comprehensive [place]. Panel Fast 6 Months E11.9 - Type 2 diabetes mellitus without complications, I48.91 - Unspecified atrial fibrillation, I50.30 - Unspecified diastolic (congestive) heart failure, J44.1 - Chronic obstructive pulmonary disease with (acute) exacerbation, M05.79 - Rheumatoid arthritis with rheumatoid factor of multiple sites without organ or systems involvement, N18.30 - Chronic kidney disease, stage 3 unspecified Complete Blood Count Auto Diff 6 Months E11.9 - Type 2 diabetes mellitus without complications, I48.91 - Unspecified atrial fibrillation, I50.30 - Unspecified diastolic (congestive) heart failure, J44.1 - Chronic obstructive pulmonary disease with (acute) exacerbation, M05.79 - Rheumatoid arthritis with rheumatoid factor of multiple sites without organ or systems involvement, N18.30 - Chronic kidney disease, stage 3 unspecified UA w Microscopic 6 Months E11.9 - Type 2 diabetes mellitus without complications, I48.91 - Unspecified atrial fibrillation, I50.30 - Unspecified diastolic (congestive) heart failure, J44.1 - Chronic obstructive pulmonary disease with (acute) exacerbation, M05.79 - Rheumatoid arthritis with rheumatoid factor of multiple sites without organ or systems involvement, N18.30 - Chronic kidney disease, stage 3 unspecified Hemoglobin A1c 6 Months E11.9 - Type 2 diabetes mellitus without complications, I48.91 - Unspecified atrial fibrillation, I50.30 - Unspecified diastolic (congestive) heart failure, J44.1 - Chronic obstructive pulmonary disease with (acute) exacerbation, M05.79 - Rheumatoid arthritis with rheumatoid factor of multiple sites without organ or systems involvement, N18.30 - Chronic kidney disease, stage 3 unspecified Lipid Panel 6 Months E11.9 - Type 2 diabetes mellitus without complications, I48.91 - Unspecified atrial fibrillation, I50.30 - Unspecified diastolic (congestive) heart failure, J44.1 - Chronic obstructive pulmonary disease with (acute) exacerbation, M05.79 - Rheumatoid arthritis with rheumatoid factor of multiple sites without organ or systems involvement, N18.30 - Chronic kidney disease, stage 3 unspecified TSH reflex Free T4 6 Months E11.9 - Type 2 diabetes mellitus without complications, I48.91 - Unspecified atrial fibrillation, I50.30 - Unspecified diastolic (congestive) heart failure, J44.1 - Chronic obstructive pulmonary disease with (acute) exacerbation, M05.79 - Rheumatoid arthritis with rheumatoid factor of multiple sites without organ or systems involvement, N18.30 - Chronic kidney disease, stage 3 unspecified Coding Level of Care Code Est Pt Level 4 (06422) Diagnoses Rheumatoid arthritis involving multiple sites with positive rheumatoid factor M05.79 Rheumatoid arthritis location: multiple sites Rheumatoid factor presence: with rheumatoid factor COPD (chronic obstructive pulmonary disease) J44.1 COPD type: COPD with acute exacerbation Diabetes E11.9 CKD (chronic kidney disease) stage 3, GFR 30-59 ml/min N18.30 (HFpEF) heart failure with preserved ejection fraction I50.30 Atrial fibrillation I48.91
[2023-09-24 09:59] VITALS: BP 126/62; PULSE 78; O2SAT 96; BMI 41.6
== END 2023-09-24 12:32 | disposition home or self-care (01) ==
PROVIDERS: PCP Internal Medicine; Visit Provider Internal Medicine
DX: I13.10 Hypertensive heart and chronic kidney disease without heart failure, with stage 1 through stage 4 chronic kidney disease, or unspecified chronic kidney disease (principal); E11.22 Type 2 diabetes mellitus with diabetic chronic kidney disease; N18.30 Chronic kidney disease, stage 3 unspecified; I50.30 Unspecified diastolic (congestive) heart failure; M05.79 Rheumatoid arthritis with rheumatoid factor of multiple sites without organ or systems involvement; J44.1 Chronic obstructive pulmonary disease with (acute) exacerbation; I48.91 Unspecified atrial fibrillation
CPT/HCPCS: 99214

== ENCOUNTER 2023-11-15 13:26 | Outpatient (REF) | payer MEDICARE, MEDICAID, SELFPAY ==
[2023-11-15 13:40] LABS: MANUAL DIFF FLAG NO
[2023-11-15 14:11] LABS: Basophils Percent Auto 0.6 % (0-2); Eosinophils Absolute Auto 0.1 X10*3/uL (0.0-0.4); Eosinophils Percent Auto 1.9 % (0-4); Hematocrit 41.7 % (37.0-47.0); Hemoglobin 13.6 g/dl (12.0-16.0); Imm Gran Abs Auto 0.01 X10*3/uL (0.00-0.03); Imm Gran Pct Auto 0.1 % (0.0-0.4); Lymphocytes Absolute Auto 2.5 X10*3/uL (1.2-4.9); Lymphocytes Percent Auto 36.5 % (20-40); Mean Corpuscular HGB Conc 32.6 g/dl (31.0-35.0); Mean Corpuscular Hemoglobin 31.9 pg (27.0-33.0); Mean Corpuscular Volume 97.7 fL (80.0-98.0); Mean Platelet Volume 11.6 fL (9.4-12.3); Monocytes Absolute Auto 0.6 X10*3/uL (0.1-1.2); Monocytes Percent Auto 9.5 % (2-11); Neutrophils Absolute Auto 3.5 x10*3/uL (2.0-8.3); Neutrophils Percent Auto 51.4 % (45-73); Platelet Count 199 X10*3/uL (160-400); Red Blood Count 4.27 X10*6/uL (4.20-5.50); Red Cell Distribution Width 12.4 % (11.0-16.0); White Blood Count 6.7 X10*3/uL (4.8-10.8)
[2023-11-15 14:48] LABS: Erythrocyte Sedimentation Rate 30 MM/HR (0-20)
[2023-11-15 14:49] LABS: Alanine Aminotransferase 25 U/L (0-31); Albumin Level 4.2 g/dL (3.5-5.0); Alkaline Phosphatase 85 U/L (39-117); Anion Gap 15 (12-20); Aspartate Amino Transferase 26 U/L (5-31); Bilirubin Total 0.4 mg/dL (0.0-1.0); Blood Urea Nitrogen 20 mg/dL (9-16); C Reactive Protein 0.55 mg/dL (< or = 0.50); Calcium 9.9 mg/dL (8.4-10.2); Carbon Dioxide 30 mmol/L (22-29); Chloride 101 mmol/L (96-108); Estimated Glomerular Filt Rate 53; Glucose Random 98 mg/dL (60-115); Potassium 4.1 mmol/L (3.3-5.1); Sodium 142 mmol/L (135-145); Total Protein 8.3 g/dL (6.5-8.0)
== END 2023-11-15 13:27 | disposition home or self-care (01) ==
LOC: HO.LAB 13:26
PROVIDERS: PCP Internal Medicine; Visit Provider Student in an Organized Health Care Education/Training Program
DX: Z79.899 Other long term (current) drug therapy (principal)
CPT/HCPCS: 36415; 80053; 85025; 85652; 86140

== ENCOUNTER 2023-11-17 13:17 | Outpatient (AMB) | payer MEDICARE, MEDICAID, SELFPAY ==
[2023-11-17 13:35] VITALS: BP 116/64; PULSE 74; BMI 41.3
--- NOTE | 2023-11-17 13:35 | MHC.OFFVIS ---
Vital Signs 11/17/23 13:35 Height 5 ft 6 in Weight 255 lb 15.307 oz BMI 41.3 BP 116/64 Blood Pressure Location Lt brachial Position Sitting Pulse 74 Pulse Source Pulse Oximeter Intake Visit Reasons: RA/CM Intake Note: Patient last seen 09/15/23 presents today for follow up and test results. Instrumentation Technician Required: No Instrumentation Technician Name: Refusal Signed. Accompanied by: Daughter Allergies atorvastatin [From Lipitor] Allergy (Unknown, Verified 11/17/23 13:37) Leg cramps ciprofloxacin [From Cipro] Allergy (Unknown, Verified 11/17/23 13:37) Stomach Upset ezetimibe [From Zetia] Allergy (Unknown, Verified 11/17/23 13:37) leg cramps hydrochlorothiazide [From Avalide] Allergy (Unknown, Verified 11/17/23 13:37) Stomach Upset infliximab [From Remicade] Allergy (Unknown, Verified 11/17/23 13:37) Infection irbesartan [From Avalide] Allergy (Unknown, Verified 11/17/23 13:37) Stomach Upset metformin Allergy (Unknown, Verified 11/17/23 13:37) nausea moxifloxacin [From Avelox] Allergy (Unknown, Verified 11/17/23 13:37) Stomach Upset nifedipine Allergy (Unknown, Verified 11/17/23 13:37) upset stomach pravastatin Allergy (Unknown, Verified 11/17/23 13:37) stomach upset rosuvastatin [From Crestor] Allergy (Unknown, Verified 11/17/23 13:37) Leg cramps terazosin [From Hytrin] Allergy (Unknown, Verified 11/17/23 13:37) Stomach Upset valsartan [From Diovan] Allergy (Unknown, Verified 11/17/23 13:37) Stomach Upset warfarin [WARFARIN] Allergy (Unknown, Verified 11/17/23 13:37) Anaphylaxis Medication List - Last Reconciled 11/17/23 by Hi Mccollum MD acetaminophen 1,000 mg PO BID albuterol sulfate 90 mcg/actuation 2 puffs inhalation Q4H PRN albuterol sulfate 0.63 mg (3 mL) inhalation Q4-6H PRN apixaban (Eliquis) 5 mg PO BID blood sugar diagnostic As directed blood sugar diagnostic (FreeStyle Test strips) check glucose once a day blood-glucose meter As directed budesonide-formoterol 160-4.5 mcg/actuation 1 puff inhalation BID compr.stocking,knee,long,x-lrg 10-20 mmHg diltiazem HCl ER 240 mg PO DAILY estradiol 0.01%(0.1mg/gram) (Estrace) 0.25 appful vaginal 2XW ezetimibe (Zetia) 10 mg PO DAILY folic acid 1 mg PO DAILY furosemide 40 mg PO BID gabapentin 300 mg PO BID glipizide 5 mg PO DAILY hospital bed As directed incontinence pad, liner, disp As directed levothyroxine 50 mcg PO QAM lidocaine 5% (Lidoderm) 1 patch topical DAILY lisinopril 5 mg PO BID meclizine 25 mg PO DAILY PRN metolazone 2.5 mg PO Q OTHER DAY miscellaneous medical supply 1 ea miscellaneous .QD mupirocin 2% 1 appl topical TID pantoprazole 40 mg PO DAILY@0600 potassium chloride ER 20 mEq (2 x 10 mEq) PO DAILY sertraline 50 mg PO DAILY Shower Chair As directed sulfasalazine 1 g (2 x 500 mg) PO BID umeclidinium 62.5 mcg/actuation (Incruse Ellipta) 1 inh PO DAILY HPI Comments Details: 82-year-old female with seropositive RA returns for follow-up. Patient states that she could not tolerate sulfasalazine, she has been taking only 1 tab daily due to GI upset. She continues to feel about the same. Continues to have back pain, pain in her wrists, fingers, feet. Initial history: This is an 82-year-old female who presents for evaluation of rheumatoid arthritis. Patient presents with her daughter. She has a poor historian. She stated that she was diagnosed with RA in her 60s. She states that she has been on different medicines and usually they would be discontinued due to a side effect. Currently she has been on sulfasalazine 1000 mg Twice daily since around 2019. Prescribed by Dr. Salazar and continued by her PCP. Arava was ineffective. She could not tolerate methotrexate and hydroxychloroquine. She developed right foot osteomyelitis once after Remicade was started. She states that she has diffuse pain. She has pain in her hands, her neck, shoulders, back, knees. She stated that she had reconstructive surgery for her right foot years ago. She gets periodic gel injections for both knees every 6 months. She states that she has an old oxycodone prescription from her hr assistant. The prescription dates back to 2006. She takes it as needed and it is helpful She has a history of blood clot and is on Eliquis regularly. Most recent DVT was around 9 years ago. Patient also has history of COPD. She uses 2 L of oxygen as needed. She never smoked. She also has history of obstructive sleep apnea and uses a CPAP. She is unaware of any family history of an autoimmune rheumatic disease. [facility] Medical History Ankle pain, right Hypokalemia Persistent atrial fibrillation Acute on chronic diastolic (congestive) heart failure LILY (obstructive sleep apnea) Acute respiratory failure with hypoxia Hypoxia (HFpEF) heart failure with preserved ejection fraction SOB (shortness of breath) Acute respiratory failure with hypoxia Depression Physical deconditioning Cervical radiculopathy due to degenerative joint disease of spine Venous insufficiency Recurrent pulmonary embolism Diabetes Hyperlipidemia Hemorrhoids Obesity Rheumatoid arthritis COPD (chronic obstructive pulmonary disease) Atrial fibrillation Hypertension Surgical History History of carpal tunnel syndrome History of surgery Family History Father No problems noted. Mother No problems noted. Social History Household Members: Family Housing: House Do you presently have visiting nurse or other home services: No Alcohol intake: never Patient Tobacco Use Status: Never used Tobacco e-Cigarette/Vaping Use: Never Used service: No Current occupational status: retired Cognitive needs: No Hearing needs: No Vision needs: Yes Female Reproductive History Menstrual Total pregnancies: 3 Full term: 3 Ab induced: 0 Ab spontaneous: 0 Review of Systems Musc Reports back pain, Reports deformity, Reports arthralgias, Reports joint swelling and Reports stiffness Skin/Breast Reports unusual bruising Physical Exam Vital Signs: Last Vital Signs Pulse 74 11/17/23 13:35 BP 116/64 11/17/23 13:35 BMI result Body Mass Index 41.3 Const General: cooperative, healthy appearing and comfortable Nutritional Appearance: obese morbidly obese Orientation/consciousness: patient oriented x3 Limitations: no limitations HEENT Head: Yes normocephalic and Yes atraumatic Mouth: moist mucous membranes Resp Effort & Inspection: normal respiratory effort and able to speak in complete sentences Auscultation: diminished lung sounds Skin General skin exam: no rashes or lesions noted Neuro General: patient oriented x3 Extrem Other: Bilateral wrist swelling and tenderness and pain with flexion and extension Bilateral squaring of 1st CMC joints Prominence and synovial thickening of MCPs bilaterally Mild flexion contracture and ulnar deviation at the MCPs bilaterally Mild flexion contracture at the PIPs Prominent Heberden's and Lorraine's nodes bilaterally. Perhaps tophi on top of DIPs Bilateral reduced relationship manager strength Minimal flexion deformity of both elbows bilaterally Significantly reduced range of motion of both shoulders Significant right shoulder crepitus Normal nailfold capillaroscopy Significant knee crepitus bilaterally Crowding of toes on the left Bilateral bunions Possible tophus on right foot bunion Fibular deviation of left foot toes Assessment & Plan Assessment & Plan (1) Rheumatoid arthritis: Comment: +RF++CCP dx around 1999 gold salts. Not tolerated Methotrexate not tolerated Arava ineffective Hydroxychloroquine not tolerated Remicade for approx 3 months, left foot osteomyelitis SSZ around 2019 partially effective. Code(s): M06.9 - Rheumatoid arthritis, unspecified Category: Medical Qualifiers: Rheumatoid arthritis location: multiple sites Rheumatoid factor presence: with rheumatoid factor Qualified Code(s): M05.79 - Rheumatoid arthritis with rheumatoid factor of multiple sites without organ or systems involvement Plan: This is an 82-year-old female with seropositive deforming RA who presents as a new patient for me. She is on sulfasalazine 500 mg daily. She could not tolerate 1000 mg Twice daily due to significant GI upset. She continues to have multiple swollen and tender joints. Needs a different DMARD. Will try minocycline 100 mg Twice daily. Given patient's numerous comorbidities including heart failure, COPD, history of DVT/PE, diabetes, history of diabetic foot infection with Remicade, most biologic DMARDs and MELLISSA inhibitors are relatively contraindicated There is some suspicion of gouty tophi on top of her arthritis and rheumatoid arthritis. It does not look like patient ever had a gout flare-up. Will check x-rays of hands and feet Labs before next visit in 3 months (2) On sulfasalazine therapy: Code(s): Z79.899 - Other terminal gauger supervisor (current) drug therapy Category: Medical Plan: Monitor safety labs periodically Plan I spent 27 minutes reviewing patient's chart, evaluating patient, ordering diagnostic workup, counseling patient and documenting in the chart Orders: Orders XR hand wrist LT Today M05.79 - Rheumatoid arthritis with rheumatoid factor of multiple sites without organ or systems involvement XR foot LT min 3V Today M05.79 - Rheumatoid arthritis with rheumatoid factor of multiple sites without organ or systems involvement XR hand wrist RT Today M05.79 - Rheumatoid arthritis with rheumatoid factor of multiple sites without organ or systems involvement Complete Blood Count Auto Diff 3 Months M05.79 - Rheumatoid arthritis with rheumatoid factor of multiple sites without organ or systems involvement Comprehensive Met. Panel 3 Months M05.79 - Rheumatoid arthritis with rheumatoid factor of multiple sites without organ or systems involvement C Reactive Protein 3 Months M05.79 - Rheumatoid arthritis with rheumatoid factor of multiple sites without organ or systems involvement XR foot RT min 3V Today M05.79 - Rheumatoid arthritis with rheumatoid factor of multiple sites without organ or systems involvement Erythrocyte Sedimentation Rate 3 Months M05.79 - Rheumatoid arthritis with rheumatoid factor of multiple sites without organ or systems involvement Uric Acid 3 Months M10.9 - Gout, unspecified Medications: New minocycline 100 mg PO BID 60 caps 2RF Discontinued sulfasalazine give with food (meal/snack) Discontinued Reason: Doctor's Order 1 g (2 x 500 mg) PO BID 360 tabs 1RF Coding Level of Care Code Est Pt Level 4 (17556) Diagnoses Rheumatoid arthritis involving multiple sites with positive rheumatoid factor M05.79 Rheumatoid arthritis location: multiple sites Rheumatoid factor presence: with rheumatoid factor On sulfasalazine therapy Z79.899
== END 2023-11-17 14:18 | disposition home or self-care (01) ==
PROVIDERS: PCP Internal Medicine; Visit Provider Student in an Organized Health Care Education/Training Program
DX: M05.79 Rheumatoid arthritis with rheumatoid factor of multiple sites without organ or systems involvement (principal); Z79.899 Other long term (current) drug therapy
CPT/HCPCS: 99214

== ENCOUNTER → 2023-11-17 13:17 | Outpatient (BNVA) | payer MEDICARE, MEDICAID, SELFPAY | PROVIDERS: PCP Internal Medicine; Visit Provider Student in an Organized Health Care Education/Training Program | DX: M05.79 Rheumatoid arthritis with rheumatoid factor of multiple sites without organ or systems involvement (principal); Z79.899 Other long term (current) drug therapy | CPT/HCPCS: 99212 ==

== ENCOUNTER 2023-11-30 12:54 | Outpatient (REF) | payer MEDICARE, MEDICAID, SELFPAY ==
--- NOTE | ~2023-11-30 | XR_ITS ---
EXAMINATION: XR BILATERAL FEET XR BILATERAL HANDS CLINICAL INFORMATION: Rheumatoid arthritis with rheumatoid factor of multiple sites. Known seropositive rheumatoid arthritis and osteoarthritis. Any signs of gouty tophi? COMPARISON: Right ankle September 30, 2021. TECHNIQUE: 3 views of each foot. 5 views of each hand/wrist. FINDINGS: RIGHT FOOT: Diffuse demineralization. Redemonstration of surgical hardware with fusion of right subtalar joint. Hardware appears intact. Redemonstration of right talocalcaneal cuboid and cuneiform fusion of the hindfoot. Progression of degenerative changes in the hindfoot and midfoot with abundant hypertrophic change and joint space narrowing. Pes planus. Metatarsus adductus, hallux valgus. Medial soft tissue bunion. Advanced degenerative changes at the fifth metatarsophalangeal joint with medial erosive changes and soft tissue swelling. Cystic lucency in the fifth metatarsal head. Degenerative changes in the IP joints of the toes. LEFT FOOT: Diffuse demineralization. Severe degenerative changes in the first metatarsophalangeal joint with joint space narrowing, hypertrophic change. Metatarsus adductus, hallux valgus with flattening along the medial aspect of the first metatarsal head, possibly related to prior surgery. Advanced degenerative changes in the fifth metatarsophalangeal joint with erosive changes along the medial aspect of the fifth metatarsal head and soft tissue swelling. Degenerative changes in the IP joints of the toes, although evaluation limited due to overlapping of toes. Flexion subluxation at the second, third and fourth metatarsophalangeal joints. Degenerative changes in the tarsometatarsal joints and joints of the mid and hindfoot. Dorsal and plantar calcaneal spurs. RIGHT HAND: Diffuse demineralization. Severe degenerative changes in the first carpometacarpal joint with subluxation, joint space narrowing and hypertrophic change. Narrowing of the radiocarpal space. Advanced degenerative changes in multiple IP joints with joint space narrowing and hypertrophic change. Soft tissue calcifications adjacent to multiple IP joints. Degenerative changes MCP joints with hypertrophic change most notable at the second and third metacarpal heads. LEFT HAND: Diffuse demineralization. Severe degenerative changes in the first carpometacarpal joint with subluxation, joint space narrowing and hypertrophic change. Narrowing of the radiocarpal space. Advanced degenerative changes in multiple IP joints with joint space narrowing and hypertrophic change. Soft tissue calcifications adjacent to multiple IP joints. Degenerative changes in the MCP joints. XR/XR foot RT min 3V IMPRESSION: 1. Advanced degenerative changes in the bilateral first metatarsophalangeal joints. 2. Advanced degenerative changes in the bilateral fifth metatarsophalangeal joints with erosive changes and soft tissue swelling. 3. Advanced degenerative changes in the bilateral IP joints of the hands. 4. Advanced degenerative changes in the bilateral first carpometacarpal joints. 5. Diffuse demineralization. 6. Postsurgical changes redemonstrated in the right foot.
== END 2023-11-30 12:55 | disposition home or self-care (01) ==
LOC: HO.XRAY 12:54
PROVIDERS: PCP Internal Medicine; Visit Provider Student in an Organized Health Care Education/Training Program
DX: M05.79 Rheumatoid arthritis with rheumatoid factor of multiple sites without organ or systems involvement (principal)
CPT/HCPCS: 73110; 73130; 73630

== ENCOUNTER 2024-02-11 11:19 | Outpatient (REF) | payer MEDICARE, MEDICAID, SELFPAY ==
[2024-02-11 11:48] LABS: MANUAL DIFF FLAG NO
[2024-02-11 12:16] LABS: Basophils Percent Auto 0.7 % (0-2); Eosinophils Absolute Auto 0.1 X10*3/uL (0.0-0.4); Eosinophils Percent Auto 1.4 % (0-4); Hematocrit 40.2 % (37.0-47.0); Hemoglobin 13.5 g/dl (12.0-16.0); Imm Gran Abs Auto 0.02 X10*3/uL (0.00-0.03); Imm Gran Pct Auto 0.4 % (0.0-0.4); Lymphocytes Absolute Auto 1.6 X10*3/uL (1.2-4.9); Lymphocytes Percent Auto 29.2 % (20-40); Mean Corpuscular HGB Conc 33.6 g/dl (31.0-35.0); Mean Corpuscular Hemoglobin 33.2 pg (27.0-33.0); Mean Corpuscular Volume 98.8 fL (80.0-98.0); Mean Platelet Volume 11.2 fL (9.4-12.3); Monocytes Absolute Auto 0.6 X10*3/uL (0.1-1.2); Monocytes Percent Auto 10.4 % (2-11); Neutrophils Absolute Auto 3.2 x10*3/uL (2.0-8.3); Neutrophils Percent Auto 57.9 % (45-73); Platelet Count 196 X10*3/uL (160-400); Red Blood Count 4.07 X10*6/uL (4.20-5.50); Red Cell Distribution Width 12.8 % (11.0-16.0); White Blood Count 5.6 X10*3/uL (4.8-10.8)
[2024-02-11 12:58] LABS: Alanine Aminotransferase 18 U/L (0-31); Albumin Level 3.7 g/dL (3.5-5.0); Alkaline Phosphatase 96 U/L (39-117); Anion Gap 13 (12-20); Aspartate Amino Transferase 26 U/L (5-31); Bilirubin Total 0.5 mg/dL (0.0-1.0); Blood Urea Nitrogen 20 mg/dL (9-16); C Reactive Protein 0.42 mg/dL (< or = 0.50); Calcium 9.4 mg/dL (8.4-10.2); Carbon Dioxide 32 mmol/L (22-29); Chloride 100 mmol/L (96-108); Estimated Glomerular Filt Rate > 60; Glucose Random 98 mg/dL (60-115); Sodium 141 mmol/L (135-145); Total Protein 7.2 g/dL (6.5-8.0); Uric Acid 9.9 mg/dL (2.4-5.7)
[2024-02-11 13:00] LABS: Erythrocyte Sedimentation Rate 23 MM/HR (0-20)
== END 2024-02-11 11:20 | disposition home or self-care (01) ==
LOC: HO.LAB 11:19
PROVIDERS: PCP Internal Medicine; Visit Provider Student in an Organized Health Care Education/Training Program
DX: M05.79 Rheumatoid arthritis with rheumatoid factor of multiple sites without organ or systems involvement (principal); M10.9 Gout, unspecified
CPT/HCPCS: 36415; 80053; 84550; 85025; 85652; 86140

== ENCOUNTER 2024-02-18 14:24 | Outpatient (AMB) | payer MEDICARE, SELFPAY, MEDICAID ==
[2024-02-18 14:37] VITALS: BP 134/74; PULSE 87; O2SAT 96; BMI 39.5
--- NOTE | 2024-02-18 14:37 | A.OFFVIS_ITS ---
Vital Signs 02/18/24 14:37 Height 5 ft 6 in Weight 244 lb 11.41 oz BMI 39.5 BP 134/74 Blood Pressure Location Lt brachial Position Sitting Pulse 87 Pulse Source Pulse Oximeter Pulse Oximetry (%) 96 Oxygen Delivery Method Room Air Intake Visit Reasons: RA Intake Note: Patient presents today for follow up on RA, last seen in the office on 11/17/23. Allergies atorvastatin [From Lipitor] Allergy (Unknown, Verified 02/18/24 14:40) Leg cramps ciprofloxacin [From Cipro] Allergy (Unknown, Verified 02/18/24 14:40) Stomach Upset ezetimibe [From Zetia] Allergy (Unknown, Verified 02/18/24 14:40) leg cramps hydrochlorothiazide [From Avalide] Allergy (Unknown, Verified 02/18/24 14:40) Stomach Upset infliximab [From Remicade] Allergy (Unknown, Verified 02/18/24 14:40) Infection irbesartan [From Avalide] Allergy (Unknown, Verified 02/18/24 14:40) Stomach Upset metformin Allergy (Unknown, Verified 02/18/24 14:40) nausea moxifloxacin [From Avelox] Allergy (Unknown, Verified 02/18/24 14:40) Stomach Upset nifedipine Allergy (Unknown, Verified 02/18/24 14:40) upset stomach pravastatin Allergy (Unknown, Verified 02/18/24 14:40) stomach upset rosuvastatin [From Crestor] Allergy (Unknown, Verified 02/18/24 14:40) Leg cramps terazosin [From Hytrin] Allergy (Unknown, Verified 02/18/24 14:40) Stomach Upset valsartan [From Diovan] Allergy (Unknown, Verified 02/18/24 14:40) Stomach Upset warfarin [WARFARIN] Allergy (Unknown, Verified 02/18/24 14:40) Anaphylaxis Medication List - Last Reconciled 02/18/24 by Hi Mccollum MD acetaminophen 1,000 mg PO BID albuterol sulfate 90 mcg/actuation 2 puffs inhalation Q4H PRN albuterol sulfate 0.63 mg (3 mL) inhalation Q4-6H PRN apixaban (Eliquis) 5 mg PO BID blood sugar diagnostic As directed blood sugar diagnostic (FreeStyle Test strips) check glucose once a day blood-glucose meter As directed budesonide-formoterol 160-4.5 mcg/actuation 1 puff inhalation BID compr.stocking,knee,long,x-lrg 10-20 mmHg diltiazem HCl ER 240 mg PO DAILY estradiol 0.01%(0.1mg/gram) (Estrace) 0.25 appful vaginal 2XW ezetimibe (Zetia) 10 mg PO DAILY folic acid 1 mg PO DAILY furosemide 40 mg PO BID gabapentin 300 mg PO BID glipizide 5 mg PO DAILY hospital bed As directed incontinence pad, liner, disp As directed levothyroxine 50 mcg PO QAM lidocaine 5% (Lidoderm) 1 patch topical DAILY lisinopril 5 mg PO BID meclizine 25 mg PO DAILY PRN metolazone 2.5 mg PO Q OTHER DAY minocycline 100 mg PO BID miscellaneous medical supply 1 ea miscellaneous .QD mupirocin 2% 1 appl topical TID pantoprazole 40 mg PO DAILY@0600 potassium chloride ER 20 mEq (2 x 10 mEq) PO DAILY sertraline 50 mg PO DAILY Shower Chair As directed umeclidinium 62.5 mcg/actuation (Incruse Ellipta) 1 inh PO DAILY HPI Comments Details: 83-year-old female with seropositive RA returns for follow-up. Patient start minocycline 100 mg Twice daily last visit. She states that it did help with the inflammation. The swelling of her knuckles significantly improved. Her overall pain however is about the same. Patient is quite frustrated with her ar thritic pain. She would like some pain relief. Initial history: This is an 82-year-old female who presents for evaluation of rheumatoid arthritis. Patient presents with her daughter. She has a poor historian. She stated that she was diagnosed with RA in her 60s. She states that she has been on different medicines and usually they would be discontinued due to a side effect. Currently she has been on sulfasalazine 1000 mg Twice daily since around 2019. Prescribed by Dr. Salazar and continued by her PCP. Arava was ineffective. She could not tolerate methotrexate and hydroxychloroquine. She developed right foot osteomyelitis once after Remicade was started. She states that she has diffuse pain. She has pain in her hands, her neck, shoulders, back, knees. She stated that she had reconstructive surgery for her right foot years ago. She gets periodic gel injections for both knees every 6 months. 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 The prescription dates back to 2006. She takes it as needed and it is helpful She has a history of blood clot and is on Eliquis regularly. Most recent DVT was around 9 years ago. Patient also has history of COPD. She uses 2 L of oxygen as needed. She never smoked. She also has history of obstructive sleep apnea and uses a CPAP. She is unaware of any family history of an autoimmune rheumatic disease. [facility] Medical History Ankle pain, right Hypokalemia Persistent atrial fibrillation Acute on chronic diastolic (congestive) heart failure LILY (obstructive sleep apnea) Acute respiratory failure with hypoxia Hypoxia (HFpEF) heart failure with preserved ejection fraction SOB (shortness of breath) Acute respiratory failure with hypoxia Depression Physical deconditioning Cervical radiculopathy due to degenerative joint disease of spine Venous insufficiency Recurrent pulmonary embolism Diabetes Hyperlipidemia Hemorrhoids Obesity Rheumatoid arthritis COPD (chronic obstructive pulmonary disease) Atrial fibrillation Hypertension Surgical History History of carpal tunnel syndrome History of surgery Family History Father No problems noted. Mother No problems noted. Social History Household Members: Family Housing: House Do you presently have visiting nurse or other home services: No Alcohol intake: never Patient Tobacco Use Status: Never used Tobacco e-Cigarette/Vaping Use: Never Used service: No Current occupational status: retired Cognitive needs: No Hearing needs: No Vision needs: Yes Female Reproductive History Menstrual Total pregnancies: 3 Full term: 3 Ab induced: 0 Ab spontaneous: 0 Review of Systems Musc Reports back pain, Reports deformity, Reports arthralgias, Denies joint swelling and Reports stiffness Skin/Breast Reports unusual bruising Physical Exam Vital Signs: Last Vital Signs Pulse 87 02/18/24 14:37 BP 134/74 02/18/24 14:37 Pulse Ox 96 02/18/24 14:37 Oxygen Delivery Method Room Air 02/18/24 14:37 BMI result Body Mass Index 39.5 Const General: cooperative, healthy appearing and comfortable Nutritional Appearance: obese morbidly obese Orientation/consciousness: patient oriented x3 Limitations: no limitations HEENT Head: Yes normocephalic and Yes atraumatic Mouth: moist mucous membranes Resp Effort & Inspection: normal respiratory effort and able to speak in complete sentences Auscultation: diminished lung sounds Skin General skin exam: no rashes or lesions noted Neuro General: patient oriented x3 Extrem Other: Wrist swelling, tenderness and pain with flexion-extension resolved Bilateral squaring of 1st CMC joints Prominence and synovial thickening of MCPs bilaterally . No swelling Mild flexion contracture and ulnar deviation at the MCPs bilaterally Mild flexion contracture at the PIPs Prominent Heberden's and Lorraine's nodes bilaterally. 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 Not tolerated Methotrexate not tolerated Arava ineffective Hydroxychloroquine not tolerated Remicade for approx 3 months, left foot osteomyelitis SSZ around 2018 DC 10/2023 ineffective Code(s): M06.9 - Rheumatoid arthritis, unspecified Category: Medical Qualifiers: Rheumatoid arthritis location: multiple sites Rheumatoid factor presence: with rheumatoid factor Qualified Code(s): M05.79 - Rheumatoid arthritis with rheumatoid factor of multiple sites without organ or systems involvement Plan: This is an 83-year-old female with deforming RA who presents for follow-up. I discontinue sulfasalazine last visit and start patient on minocycline 100 mg Twice daily with good results. Active synovitis resolved. Continue minocycline 100 mg Twice daily The majority of her complaints are due to degenerative generalized osteoarthritis Given patient's numerous comorbidities including heart failure, COPD, history of DVT/PE, diabetes, history of diabetic foot infection with Remicade, most biologic DMARDs and MELLISSA inhibitors are relatively contraindicated There is some suspicion of gouty tophi on top of her arthritis and rheumatoid arthritis. It does not look like patient ever had a gout flare-up. Uric acid level is quite elevated. I will discuss with patient next time consider a dual energy CT scan of her ankles and feet Labs before next visit in 3-4 months (2) Generalized osteoarthritis: Code(s): M15.9 - Polyosteoarthritis, unspecified Category: Medical Plan: Patient quite frustrated with her generalized osteoarthritis. She is already on gabapentin which can help some. She can not take NSAIDs as she is on Eliquis. Tylenol is not helpful. Discussed tramadol. Discussed its risks and benefits. Discussed possible increased risk of lightheadedness, falls, respiratory depression. Advised patient to start tramadol 50 mg daily and monitor for any side effects. Well-tolerated can increase up to 50 mg 3 times a day as needed for pain Plan I spent 27 minutes reviewing patient's chart, evaluating patient, ordering diagnostic workup, counseling patient and documenting in the chart Orders: Orders Comprehensive Met. Panel 4 Months M05.79 - Rheumatoid arthritis with rheumatoid factor of multiple sites without organ or systems involvement Complete Blood Count Auto Diff 4 Months M0. - Rheumatoid arthritis with rheumatoid factor of multiple sites without organ or systems involvement C Reactive Protein 4 Months M05.79 - Rheumatoid arthritis with rheumatoid factor of multiple sites without organ or systems involvement Erythrocyte Sedimentation Rate 4 Months M05.79 - Rheumatoid arthritis with rheumatoid factor of multiple sites without organ or systems involvement Medications: New tramadol 50 mg PO TID PRN 90 tabs 3RF pain Refilled minocycline 100 mg PO BID 180 caps 1RF Coding Level of Care Code Est Pt Level 4 (51946) Diagnoses Rheumatoid arthritis involving multiple sites with positive rheumatoid factor M05.79 Rheumatoid arthritis location: multiple sites Rheumatoid factor presence: with rheumatoid factor Generalized osteoarthritis M15.9
== END 2024-02-18 15:09 | disposition home or self-care (01) ==
PROVIDERS: PCP Internal Medicine; Visit Provider Student in an Organized Health Care Education/Training Program
DX: M05.79 Rheumatoid arthritis with rheumatoid factor of multiple sites without organ or systems involvement (principal); M15.9 Polyosteoarthritis, unspecified
CPT/HCPCS: 99214

== ENCOUNTER → 2024-02-18 14:24 | Outpatient (BNVA) | payer MEDICARE, SELFPAY | PROVIDERS: PCP Internal Medicine; Visit Provider Student in an Organized Health Care Education/Training Program | DX: M05.79 Rheumatoid arthritis with rheumatoid factor of multiple sites without organ or systems involvement (principal); M15.9 Polyosteoarthritis, unspecified | CPT/HCPCS: 99212 ==

== ENCOUNTER 2024-02-21 10:50 | Outpatient (AMB) | payer MEDICARE, SELFPAY ==
[2024-02-21 10:53] VITALS: BP 126/68; PULSE 67; O2SAT 97; BMI 39.2
--- NOTE | 2024-02-21 10:53 | MHC.PC.OV ---
Vital Signs 02/21/24 10:53 Height 5 ft 6 in Weight 243 lb BMI 39.2 BP 126/68 Blood Pressure Location Lt brachial Position Sitting Pulse 67 Pulse Source Pulse Oximeter Pulse Oximetry (%) 97 Oxygen Delivery Method Room Air Intake Visit Reasons: Follow up Intake Note: Pt is here today for a follow up visit. Pt states that she has been having swelling in her ankles and lower legs. Pt states that she fell 3 weeks ago and she hurt her R lower leg. Allergies atorvastatin [From Lipitor] Allergy (Unknown, Verified 02/21/24 10:54) Leg cramps ciprofloxacin [From Cipro] Allergy (Unknown, Verified 02/21/24 10:54) Stomach Upset ezetimibe [From Zetia] Allergy (Unknown, Verified 02/21/24 10:54) leg cramps hydrochlorothiazide [From Avalide] Allergy (Unknown, Verified 02/21/24 10:54) Stomach Upset infliximab [From Remicade] Allergy (Unknown, Verified 02/21/24 10:54) Infection irbesartan [From Avalide] Allergy (Unknown, Verified 02/21/24 10:54) Stomach Upset metformin Allergy (Unknown, Verified 02/21/24 10:54) nausea moxifloxacin [From Avelox] Allergy (Unknown, Verified 02/21/24 10:54) Stomach Upset nifedipine Allergy (Unknown, Verified 02/21/24 10:54) upset stomach pravastatin Allergy (Unknown, Verified 02/21/24 10:54) stomach upset rosuvastatin [From Crestor] Allergy (Unknown, Verified 02/21/24 10:54) Leg cramps terazosin [From Hytrin] Allergy (Unknown, Verified 02/21/24 10:54) Stomach Upset valsartan [From Diovan] Allergy (Unknown, Verified 02/21/24 10:54) Stomach Upset warfarin [WARFARIN] Allergy (Unknown, Verified 02/21/24 10:54) Anaphylaxis Medication List - Last Reconciled 02/21/24 by Salud Lester MD acetaminophen 1,000 mg PO BID albuterol sulfate 90 mcg/actuation 2 puffs inhalation Q4H PRN albuterol sulfate 0.63 mg (3 mL) inhalation Q4-6H PRN apixaban (Eliquis) 5 mg PO BID blood sugar diagnostic As directed blood sugar diagnostic (FreeStyle Test strips) check glucose once a day blood-glucose meter As directed budesonide-formoterol 160-4.5 mcg/actuation 1 puff inhalation BID compr.stocking,knee,long,x-lrg 10-20 mmHg diltiazem HCl ER 240 mg PO DAILY estradiol 0.01%(0.1mg/gram) (Estrace) 0.25 appful vaginal 2XW ezetimibe (Zetia) 10 mg PO DAILY folic acid 1 mg PO DAILY furosemide 40 mg PO BID gabapentin 300 mg PO BID glipizide 5 mg PO DAILY hospital bed As directed incontinence pad, liner, disp As directed levothyroxine 50 mcg PO QAM lidocaine 5% (Lidoderm) 1 patch topical DAILY lisinopril 5 mg PO BID meclizine 25 mg PO DAILY PRN metolazone 2.5 mg PO Q OTHER DAY minocycline 100 mg PO BID miscellaneous medical supply 1 ea miscellaneous .QD mupirocin 2% 1 appl topical TID pantoprazole 40 mg PO DAILY@0600 potassium chloride ER 20 mEq (2 x 10 mEq) PO DAILY sertraline 50 mg PO DAILY Shower Chair As directed tramadol 50 mg PO TID PRN umeclidinium 62.5 mcg/actuation (Incruse Ellipta) 1 inh PO DAILY Tobacco use date assessed: 02/21/24 Fall risk assessment: 1 Fall in past year Last assessed Fall Risk: 02/21/24 Dental Screening Dental Screen Date: 07/27/23 HPI Follow up HPI Details Patient presents for the follow-up of type 2 diabetes, heart failure with preserved ejection fraction, paroxysmal AFib, hyperlipidemia, chronic lower back pain, RA. Patient was started on minocycline and tramadol for RA by Rheumatology. Patient has been trying to lose weight decreasing caloric intake increasing physical activity for the last 6 months and was able to lose only 6 lb. [facility], [facility] Medical History (Updated 02/21/24 @ 12:07 by Salud Lester MD) Ankle pain, right Hypokalemia Persistent atrial fibrillation Acute on chronic diastolic (congestive) heart failure LILY (obstructive sleep apnea) Acute respiratory failure with hypoxia Hypoxia (HFpEF) heart failure with preserved ejection fraction Acute respiratory failure with hypoxia Depression Physical deconditioning Cervical radiculopathy due to degenerative joint disease of spine Venous insufficiency Recurrent pulmonary embolism Diabetes Hyperlipidemia Hemorrhoids Obesity Rheumatoid arthritis COPD (chronic obstructive pulmonary disease) Atrial fibrillation Hypertension Surgical History History of carpal tunnel syndrome History of surgery Family History Father No problems noted. Mother No problems noted. Social History Household Members: Family Housing: House Do you presently have visiting nurse or other home services: No Alcohol intake: never Patient Tobacco Use Status: Never used Tobacco e-Cigarette/Vaping Use: Never Used service: No Current occupational status: retired Cognitive needs: No Hearing needs: No Vision needs: Yes Questionnaire PHQ-9 Over the last 2 weeks, how often have you been bothered by any of the following problems? 1. Little interest or pleasure in doing things: not at all 2. Feeling down, depressed, or hopeless: not at all 3. Trouble falling or staying asleep, or sleeping too much: not at all 4. Feeling tired or having little energy: not at all 5. Poor appetite or overeating: not at all 6. Feeling bad about yourself - or that you are a failure or have let yourself or your family down: not at all 7. Trouble concentrating on things, such as reading the newspaper or watching television: not at all 8. Moving or speaking so slowly that other people could have noticed. Or the opposite - being so fidgety or restless that you have been moving around a lot more than usual: not at all 9. Thoughts that you would be better off or of hurting yourself in some way: not at all Total score: 0 Depression Screening Interpretation: Negative Depression Screening Done: Yes 97578 - PHQ-9 Billing: Yes Source: Developed by Drs. Gume Adam, Sandhya Chopra, Major Headley and colleagues, with an educational [email or web address] from [email or web address]. Thrive Questionnaire Date Thrive assessed: 02/21/24 I am a: Patient What is your living situation today?: I have a steady place to live Within the past 12 months, did the food you bought not last and you didn't have the money to get more?: I choose not to answer this question Within the past 12 months, did you worry whether your food would run out before you got money to buy more?: I choose not to answer this question Do you have trouble paying for medicines?: No Do you have trouble getting transportation to medical appointments?: No Do you have trouble paying your heating and electricity bill?: No Do you have trouble taking care of your child, family member or friend?: I choose not to answer this question Do you have trouble with day-to-day activities such as bathing, preparing meals, shopping, managing finances, etc.?: I choose not to answer this question Are you currently unemployed and looking for a job?: I choose not to answer this question Are you interested in more education?: I choose not to answer this question Please select the resources that you would like help with: None Currently or been in a relationship where the following occur: I choose not to answer THRIVE Score: 0 AUDIT C Alcohol Use Questionnaire (AUDIT-C) 1. How often do you have a drink containing alcohol?: Never 3. How often do you have six or more drinks on one occasion?: Never Total Score: 0 OTILIO-7 AMB Questionnaire OTILIO-7 Date OTILIO - 7 assessed: 02/21/24 Feeling nervous, anxious, or on edge: 0 = Not at all Not being able to stop or control worryin = Not at all Worrying too much about different things: 0 = Not at all Trouble relaxin = Not at all Being so restless that it is hard to sit still: 0 = Not at all Becoming easily annoyed or irritable: 0 = Not at all Feeling afraid as if something awful might happen: 0 = Not at all Total OTILIO-7 score (0-4 normal; 5-9 mild; 10-14 moderate; 15-21 severe): 0 Source: Developed by Drs. Gume Adam, Sandhya Chopra, Major Headley and colleagues, with an educational [email or web address] from [email or web address]. OTILIO-7 Assessment Billing OTILIO-7 Assessment Tool: OTILIO-7 Assessment 05428 Review of Systems Const All systems reviewed & are unremarkable except as noted in HPI and below Eyes Reports no additional complaints ENT Reports no additional complaints Card Reports no additional complaints Resp Reports no additional complaints GI Reports no additional complaints Reports no additional complaints Physical exam (Primary Care) Vital Signs: Last Vital Signs Pulse 67 02/21/24 10:53 BP 126/68 02/21/24 10:53 Pulse Ox 97 02/21/24 10:53 Oxygen Delivery Method Room Air 02/21/24 10:53 BMI result Body Mass Index 39.2 Tobacco/Smoking Status: Tobacco use Status Tobacco use date assessed 02/21/24 02/21/24 10:56 Patient Tobacco Use Status Never used Tobacco 02/21/24 10:56 e-Cigarette/Vaping Use Never Used 02/21/24 10:56 PHQ-9: PHQ-9 Score PHQ-9: Total score 0 02/21/24 11:19 Depression Screening Interpretation: Negative Thrive Assessment: Date of Thrive Assessment Date Thrive assessed 02/21/24 02/21/24 10:56 Currently or been in a relationship where the following occur: I choose not to answer Const General: no acute distress HENMT Head: Yes normal to inspection Mouth: Normal oral and palatal mucosa present Throat: Yes posterior oropharynx normal Eyes General: appearance normal, both eyes and all related structures Neck Neck: Yes supple Resp Effort & Inspection: normal respiratory effort Auscultation: clear to auscultation bilaterally Cardio Rhythm: regular rhythm Heart sounds: S1 normal heart sound present and S2 normal heart sound present GI Inspection: Yes normal to inspection Palpation (GI): Soft to palpation Percussion: Yes normal to percussion Auscultation: normal bowel sounds Extrem Other: 1 + pitting edema b/l Results AMB Hemoglobin A1c AMB Hemoglobin A1c 5.6 % Last Edit by GREGORY Mendze on 02/21/24 11:30 Assessment and Plan Assessment & Plan (1) Hypertension: Comment: BP goal less than 130/80 Code(s): I10 - Essential (primary) hypertension Plan: Continue current medications (2) Hyperlipidemia: Comment: Intolerant to statins Code(s): E78.5 - Hyperlipidemia, unspecified Plan: Continue Zetia (3) Atrial fibrillation: Comment: permanent Code(s): I48.91 - Unspecified atrial fibrillation Plan: Rate controlled on diltiazem and anticoagulated on Eliquis (4) (HFpEF) heart failure with preserved ejection fraction: Comment: Echo 01/2021, severely increased left ventricle thickness, hyperdynamic LVEF, mild MS, myocardial perfusion nl 11/21, Echo 09/21 unchanged Code(s): I50.30 - Unspecified diastolic (congestive) heart failure Plan: Continue current medications (5) Diabetes: Comment: A1C goal less than 8 Code(s): E11.9 - Type 2 diabetes mellitus without complications Plan: A1c is 5.5. Patient was advised to stop glipizide follow ADA diet and Wegovy 0.5 mg weekly will be tried for weight loss. Follow-up in 4 months (6) Hypothyroid: Code(s): E03.9 - Hypothyroidism, unspecified Plan: Continue levothyroxine Orders: Orders Hemoglobin A1c 4 Months E03.9 - Hypothyroidism, unspecified, E11.9 - Type 2 diabetes mellitus without complications, E78.5 - Hyperlipidemia, unspecified, I10 - Essential (primary) hypertension, I48.91 - Unspecified atrial fibrillation, I50.30 - Unspecified diastolic (congestive) heart failure, N18.30 - Chronic kidney disease, stage 3 unspecified Comprehensive Lesage. Panel Fast 4 Months E03.9 - Hypothyroidism, unspecified, E11.9 - Type 2 diabetes mellitus without complications, E78.5 - Hyperlipidemia, unspecified, I10 - Essential (primary) hypertension, I48.91 - Unspecified atrial fibrillation, I50.30 - Unspecified diastolic (congestive) heart failure, N18.30 - Chronic kidney disease, stage 3 unspecified Complete Blood Count Auto Diff 4 Months E03.9 - Hypothyroidism, unspecified, E11.9 - Type 2 diabetes mellitus without complications, E78.5 - Hyperlipidemia, unspecified, I10 - Essential (primary) hypertension, I48.91 - Unspecified atrial fibrillation, I50.30 - Unspecified diastolic (congestive) heart failure, N18.30 - Chronic kidney disease, stage 3 unspecified Lipid Panel 4 Months E03.9 - Hypothyroidism, unspecified, E11.9 - Type 2 diabetes mellitus without complications, E78.5 - Hyperlipidemia, unspecified, I10 - Essential (primary) hypertension, I48.91 - Unspecified atrial fibrillation, I50.30 - Unspecified diastolic (congestive) heart failure, N18.30 - Chronic kidney disease, stage 3 unspecified AMB Hemoglobin A1c Today Z13.9 - Encounter for screening, unspecified TSH reflex Free T4 4 Months E03.9 - Hypothyroidism, unspecified, E11.9 - Type 2 diabetes mellitus without complications, E78.5 - Hyperlipidemia, unspecified, I10 - Essential (primary) hypertension, I48.91 - Unspecified atrial fibrillation, I50.30 - Unspecified diastolic (congestive) heart failure, N18.30 - Chronic kidney disease, stage 3 unspecified Medications: New Wegovy (semaglutide (weight loss)) 0.5 mg subcut Q7D 2 mL 3RF NS Changed From estradiol 0.01%(0.1mg/gram) (Estrace) 0.25 appful vaginal 2XW 42.5 grams 0RF To estradiol 0.01%(0.1mg/gram) (Estrace) pea size to urethra openning vaginally QD; 42.5 grams 1RF Discontinued glipizide Discontinued Reason: Doctor's Order 5 mg PO DAILY 90 tabs 2RF umeclidinium 62.5 mcg/actuation (Incruse Ellipta) Discontinued Reason: Doctor's Order 1 inh PO DAILY 30 ea 6RF budesonide-formoterol 160-4.5 mcg/actuation Discontinued Reason: Doctor's Order 1 puff inhalation BID 10.2 grams 6RF Coding Level of Care Code Est Pt Level 4 (89194) Diagnoses Hypertension I10 Hyperlipidemia E78.5 Atrial fibrillation I48.91 (HFpEF) heart failure with preserved ejection fraction I50.30 Diabetes E11.9 Hypothyroid E03.9 Additional Codes OTILIO-7 Assessment Billing - OTILIO-7 Assessment Tool: OTILIO-7 Assessment 79550 ([id number])
== END 2024-02-21 11:46 | disposition home or self-care (01) ==
PROVIDERS: PCP Internal Medicine; Visit Provider Internal Medicine
DX: I48.91 Unspecified atrial fibrillation (principal); I50.30 Unspecified diastolic (congestive) heart failure; E11.9 Type 2 diabetes mellitus without complications; I10 Essential (primary) hypertension; E78.5 Hyperlipidemia, unspecified; E03.9 Hypothyroidism, unspecified

== ENCOUNTER → 2024-02-21 10:50 | Outpatient (BNVA) | payer MEDICARE, MEDICAID, SELFPAY | PROVIDERS: PCP Internal Medicine; Visit Provider Internal Medicine | DX: I11.0 Hypertensive heart disease with heart failure (principal); I50.30 Unspecified diastolic (congestive) heart failure; E78.5 Hyperlipidemia, unspecified; I48.91 Unspecified atrial fibrillation; E11.9 Type 2 diabetes mellitus without complications; E03.9 Hypothyroidism, unspecified | CPT/HCPCS: 83036; 96127; 99212 ==

== ENCOUNTER 2024-04-04 12:36 | Outpatient (AMB) | payer MEDICARE, MEDICAID, SELFPAY ==
[2024-04-04 13:31] VITALS: BP 118/66; PULSE 76; O2SAT 92; BMI 38.9
--- NOTE | 2024-04-04 13:31 | MHC.PC.OV ---
Vital Signs 04/04/24 13:31 Height 5 ft 6 in Weight 241 lb BMI 38.9 BP 118/66 Blood Pressure Location Lt brachial Position Sitting Pulse 76 Pulse Source Pulse Oximeter Pulse Oximetry (%) 92 Oxygen Delivery Method Room Air Intake Visit Reasons: Weakness out of breath ongoing Intake Note: Pt is here today for follow up visit. Pt states that she has been having weakness and out of breath. Allergies atorvastatin [From Lipitor] Allergy (Unknown, Verified 04/04/24 13:36) Leg cramps ciprofloxacin [From Cipro] Allergy (Unknown, Verified 04/04/24 13:36) Stomach Upset ezetimibe [From Zetia] Allergy (Unknown, Verified 04/04/24 13:36) leg cramps hydrochlorothiazide [From Avalide] Allergy (Unknown, Verified 04/04/24 13:36) Stomach Upset infliximab [From Remicade] Allergy (Unknown, Verified 04/04/24 13:36) Infection irbesartan [From Avalide] Allergy (Unknown, Verified 04/04/24 13:36) Stomach Upset metformin Allergy (Unknown, Verified 04/04/24 13:36) nausea moxifloxacin [From Avelox] Allergy (Unknown, Verified 04/04/24 13:36) Stomach Upset nifedipine Allergy (Unknown, Verified 04/04/24 13:36) upset stomach pravastatin Allergy (Unknown, Verified 04/04/24 13:36) stomach upset rosuvastatin [From Crestor] Allergy (Unknown, Verified 04/04/24 13:36) Leg cramps terazosin [From Hytrin] Allergy (Unknown, Verified 04/04/24 13:36) Stomach Upset valsartan [From Diovan] Allergy (Unknown, Verified 04/04/24 13:36) Stomach Upset warfarin [WARFARIN] Allergy (Unknown, Verified 04/04/24 13:36) Anaphylaxis Medication List - Last Reconciled 04/04/24 by Salud Lester MD acetaminophen 1,000 mg PO BID albuterol sulfate 90 mcg/actuation 2 puffs inhalation Q4H PRN albuterol sulfate 0.63 mg (3 mL) inhalation Q4-6H PRN apixaban (Eliquis) 5 mg PO BID blood sugar diagnostic As directed blood sugar diagnostic (FreeStyle Test strips) check glucose once a day blood-glucose meter As directed compr.stocking,knee,long,x-lrg 10-20 mmHg diltiazem HCl ER 240 mg PO DAILY estradiol 0.01%(0.1mg/gram) (Estrace) pea size to urethra openning vaginally QD; ezetimibe (Zetia) 10 mg PO DAILY fluticasone furoate-vilanterol 100-25 mcg/dose (Breo Ellipta) 1 inh inhalation DAILY folic acid 1 mg PO DAILY furosemide 40 mg PO BID gabapentin 300 mg PO BID hospital bed As directed incontinence pad, liner, disp As directed levothyroxine 50 mcg PO QAM lidocaine 5% (Lidoderm) 1 patch topical DAILY lisinopril 5 mg PO BID meclizine 25 mg PO DAILY PRN metolazone 2.5 mg PO Q OTHER DAY minocycline 100 mg PO BID miscellaneous medical supply 1 ea miscellaneous .QD mupirocin 2% 1 appl topical TID pantoprazole 40 mg PO DAILY@0600 potassium chloride ER 20 mEq (2 x 10 mEq) PO DAILY sertraline 50 mg PO DAILY Shower Chair As directed tirzepatide (weight loss) (Zepbound) 2.5 mg (0.5 mL) subcut QWEEK tramadol 50 mg PO TID PRN Wegovy (semaglutide (weight loss)) 0.25 mg (0.5 mL) subcut QWEEK NS Tobacco use date assessed: 04/04/24 Fall risk assessment: No Falls in past year Last assessed Fall Risk: 04/04/24 Dental Screening Dental Screen Date: 04/04/24 Did you have a dental visit in the last 12 months?: No Did you have a dental problem in the last 6 months where you did not have access to dental care?: No Was dental information given to patient?: Patient declined HPI Weakness out of breath ongoing HPI Details Patient presents complaining of increase chest tightness wheezing and dry cough for the last month since she received flu shot. She denies fever chills sputum production palpitations. Patient has been using Spiriva inhaler for COPD but reports intermittent wheezing. FOR[facility]LY [facility], [facility] Medical History Ankle pain, right Hypokalemia Persistent atrial fibrillation Acute on chronic diastolic (congestive) heart failure LILY (obstructive sleep apnea) Acute respiratory failure with hypoxia Hypoxia (HFpEF) heart failure with preserved ejection fraction Acute respiratory failure with hypoxia Depression Physical deconditioning Cervical radiculopathy due to degenerative joint disease of spine Venous insufficiency Recurrent pulmonary embolism Diabetes Hyperlipidemia Hemorrhoids Obesity Rheumatoid arthritis COPD (chronic obstructive pulmonary disease) Atrial fibrillation Hypertension Surgical History History of carpal tunnel syndrome History of surgery Family History Father No problems noted. Mother No problems noted. Social History Household Members: Family Housing: House Do you presently have visiting nurse or other home services: No Alcohol intake: never Patient Tobacco Use Status: Never used Tobacco e-Cigarette/Vaping Use: Never Used service: No Current occupational status: retired Cognitive needs: No Hearing needs: No Vision needs: Yes Questionnaire Thrive Questionnaire Date Thrive assessed: 02/21/24 I am a: Patient What is your living situation today?: I have a steady place to live Within the past 12 months, did the food you bought not last and you didn't have the money to get more?: I choose not to answer this question Within the past 12 months, did you worry whether your food would run out before you got money to buy more?: I choose not to answer this question Do you have trouble paying for medicines?: No Do you have trouble getting transportation to medical appointments?: No Do you have trouble paying your heating and electricity bill?: No Do you have trouble taking care of your child, family member or friend?: I choose not to answer this question Do you have trouble with day-to-day activities such as bathing, preparing meals, shopping, managing finances, etc.?: I choose not to answer this question Are you interested in more education?: I choose not to answer this question Please select the resources that you would like help with: None Currently or been in a relationship where the following occur: I choose not to answer THRIVE Score: 0 OTILIO-7 AMB Questionnaire OTILIO-7 Date OTILIO - 7 assessed: 02/21/24 Source: Developed by Drs. Gume Adam, Sandhya B.W. Major Chopra and colleagues, with an educational kimberlee from [employer]. Review of Systems Const All systems reviewed & are unremarkable except as noted in HPI and below ENT Reports no additional complaints Card Reports no additional complaints Resp Reports no additional complaints GI Reports no additional complaints Reports no additional complaints Physical exam (Primary Care) Vital Signs: Last Vital Signs Pulse 76 04/04/24 13:31 BP 118/66 04/04/24 13:31 Pulse Ox 92 04/04/24 13:31 Oxygen Delivery Method Room Air 04/04/24 13:31 BMI result Body Mass Index 38.9 Tobacco/Smoking Status: Tobacco use Status Tobacco use date assessed 04/04/24 04/04/24 13:42 Patient Tobacco Use Status Never used Tobacco 04/04/24 13:42 e-Cigarette/Vaping Use Never Used 04/04/24 13:42 Thrive Assessment: Date of Thrive Assessment Date Thrive assessed 02/21/24 04/04/24 13:42 Currently or been in a relationship where the following occur: I choose not to answer Const General: no acute distress HENMT Face and sinus: Yes normal facial exam Neck Neck: Yes supple Resp Effort & Inspection: able to speak in complete sentences Auscultation: wheezes and diminished lung sounds Cardio Rhythm: abnormal rhythm Heart sounds: S1 normal heart sound present and S2 normal heart sound present GI Inspection: Yes normal to inspection Palpation (GI): Soft to palpation Percussion: Yes normal to percussion Auscultation: normal bowel sounds Coding Level of Care Code Est Pt Level 4 (90262) Complex EM visit Add On G2211 Diagnoses (HFpEF) heart failure with preserved ejection fraction I50.30 CKD (chronic kidney disease) stage 3, GFR 30-59 ml/min N18.30 Atrial fibrillation I48.91 COPD (chronic obstructive pulmonary disease) J44.1 COPD type: COPD with acute exacerbation Assessment & Plan Assessment & Plan (1) (HFpEF) heart failure with preserved ejection fraction: Comment: Echo 01/2021, severely increased left ventricle thickness, hyperdynamic LVEF, mild MS, myocardial perfusion nl 04/20, Echo 09/21 unchanged Code(s): I50.30 - Unspecified diastolic (congestive) heart failure Category: Medical Plan: Add Farxiga 5 mg a day for heart failure with preserved ejection fraction. Patient's insurance declined coverage for Wegovy. Zepbound 2.5 mg daily will be tried to facilitate weight loss, decrease risk for hospitalization and from heart failure and heart attack. (2) CKD (chronic kidney disease) stage 3, GFR 30-59 ml/min: Code(s): N18.30 - Chronic kidney disease, stage 3 unspecified Category: Medical Plan: Monitor renal function avoid nephrotoxins (3) Atrial fibrillation: Comment: permanent Code(s): I48.91 - Unspecified atrial fibrillation Category: Medical Plan: EKG showed atrial fibrillation with a heart rate of [address]-T change, Continue Eliquis and diltiazem (4) COPD (chronic obstructive pulmonary disease): Code(s): J44.9 - Chronic obstructive pulmonary disease, unspecified Category: Medical Qualifiers: COPD type: COPD with acute exacerbation Qualified Code(s): J44.1 - Chronic obstructive pulmonary disease with (acute) exacerbation Plan: Patient has been using only Spiriva, Breo 100/25 will be added and patient was advised to use albuterol updraft up to 3 times a day, follow-up in 2 weeks Orders: Orders AMB EKG-In Office Today I10 - Essential (primary) hypertension, I48.91 - Unspecified atrial fibrillation Medications: New fluticasone furoate-vilanterol 100-25 mcg/dose (Breo Ellipta) 1 inh inhalation DAILY 60 ea 3RF tirzepatide (weight loss) (Zepbound) for 4 weeks 2.5 mg (0.5 mL) subcut QWEEK 2 mL 3RF dapagliflozin propanediol (Farxiga) 5 mg PO DAILY 90 tabs 0RF Refilled albuterol sulfate 0.63 mg (3 mL) inhalation Q4-6H PRN 90 mL 3RF shortness of breath or wheezing J44.9 - Chronic obstructive pulmonary disease, unspecified
== END 2024-04-04 15:18 | disposition home or self-care (01) ==
LOC: HO.HMCC 12:36
PROVIDERS: PCP Internal Medicine; Visit Provider Internal Medicine
DX: I50.30 Unspecified diastolic (congestive) heart failure (principal); N18.30 Chronic kidney disease, stage 3 unspecified; I48.91 Unspecified atrial fibrillation; J44.1 Chronic obstructive pulmonary disease with (acute) exacerbation

== ENCOUNTER → 2024-04-04 12:36 | Outpatient (BNVA) | payer MEDICARE, MEDICAID, SELFPAY | PROVIDERS: PCP Internal Medicine; Visit Provider Internal Medicine | DX: I50.30 Unspecified diastolic (congestive) heart failure (principal); N18.30 Chronic kidney disease, stage 3 unspecified; I48.91 Unspecified atrial fibrillation; J44.1 Chronic obstructive pulmonary disease with (acute) exacerbation | CPT/HCPCS: 99212 ==

== ENCOUNTER → 2024-06-01 09:04 | Outpatient (BNV) | payer MEDICARE, MEDICAID, SELFPAY | PROVIDERS: PCP Internal Medicine; Visit Provider Radiology Diagnostic Radiology | DX: N28.89 Other specified disorders of kidney and ureter (principal) | CPT/HCPCS: 74183 ==

== ENCOUNTER 2024-06-01 09:08 | Outpatient (REF) | payer MEDICARE, MEDICAID, SELFPAY ==
--- NOTE | ~2024-06-01 | MR_ITS ---
EXAMINATION: MRI Abdomen without and with contrast HISTORY: N28.89 - Other specified disorders of kidney and ureter COMPARISON: None TECHNIQUE: Axial in and out of phase T1-weighted gradient echo, axial diffusion weighted, and axial and coronal haste T2 with fat saturation images were obtained through the abdomen. Subsequently, fat suppressed axial and coronal T1-weighted images were obtained after the intravenous administration of 10 mL Gadavist. FINDINGS: No significant loss of signal intensity is seen in the liver on opposed phase imaging to suggest steatosis. There is no enhancing liver mass. The hepatic and portal veins are patent. There is no intra or extrahepatic biliary ductal dilatation. There are numerous calculi in the gallbladder. The spleen is unremarkable in appearance. There is a small splenule noted adjacent to the pancreatic tail. The pancreas and adrenals are unremarkable. Again seen is a 1.5 cm cyst at the upper pole of the right kidney. Again seen is an enhancing exophytic mass in the interpolar region of the left kidney measuring 1.7 cm in diameter, similar to the prior study. There is no hydronephrosis. No retroperitoneal lymphadenopathy or ascites is identified in the upper abdomen. MR/MR abdomen wo/w con IMPRESSION: 1. Stable exophytic 1.7 cm enhancing mass in the interpolar region of the left kidney. 2. Cholelithiasis. Electronically signed by: Gume Bales MD 06/05/2024 03:05 PM [facility]
[2024-06-01] MEDS: gadobutroL 10 ML VIAL IVPUSH (10:02)
== END 2024-06-01 09:09 | disposition home or self-care (01) ==
LOC: HO.MRI 09:08
PROVIDERS: PCP Internal Medicine; Visit Provider Urology
DX: N28.89 Other specified disorders of kidney and ureter (principal)
CPT/HCPCS: 74183; A9585

== ENCOUNTER 2024-06-06 14:21 | Outpatient (AMB) | payer MEDICARE, MEDICAID, SELFPAY ==
--- NOTE | 2024-06-06 14:39 | MHC.OFFVIS ---
Vital Signs 06/06/24 14:45 Height 5 ft 6 in Weight 239 lb 10.279 oz BMI 38.7 BP 162/90 H Blood Pressure Location Lt brachial Position Sitting Pulse 69 Pulse Source Pulse Oximeter Pulse Oximetry (%) 92 Oxygen Delivery Method Room Air Intake Visit Reasons: RA Intake Note: Patient presents for RA. Allergies atorvastatin [From Lipitor] Allergy (Unknown, Verified 06/06/24 14:44) Leg cramps ciprofloxacin [From Cipro] Allergy (Unknown, Verified 06/06/24 14:44) Stomach Upset ezetimibe [From Zetia] Allergy (Unknown, Verified 06/06/24 14:44) leg cramps hydrochlorothiazide [From Avalide] Allergy (Unknown, Verified 06/06/24 14:44) Stomach Upset infliximab [From Remicade] Allergy (Unknown, Verified 06/06/24 14:44) Infection irbesartan [From Avalide] Allergy (Unknown, Verified 06/06/24 14:44) Stomach Upset metformin Allergy (Unknown, Verified 06/06/24 14:44) nausea moxifloxacin [From Avelox] Allergy (Unknown, Verified 06/06/24 14:44) Stomach Upset nifedipine Allergy (Unknown, Verified 06/06/24 14:44) upset stomach pravastatin Allergy (Unknown, Verified 06/06/24 14:44) stomach upset rosuvastatin [From Crestor] Allergy (Unknown, Verified 06/06/24 14:44) Leg cramps terazosin [From Hytrin] Allergy (Unknown, Verified 06/06/24 14:44) Stomach Upset valsartan [From Diovan] Allergy (Unknown, Verified 06/06/24 14:44) Stomach Upset warfarin [WARFARIN] Allergy (Unknown, Verified 06/06/24 14:44) Anaphylaxis Medication List - Last Reconciled 06/06/24 by Hi Mccollum MD acetaminophen 1,000 mg PO BID albuterol sulfate 90 mcg/actuation 2 puffs inhalation Q4H PRN albuterol sulfate 0.63 mg (3 mL) inhalation Q4-6H PRN apixaban (Eliquis) 5 mg PO BID blood sugar diagnostic As directed blood sugar diagnostic (FreeStyle Test strips) check glucose once a day blood-glucose meter As directed compr.stocking,knee,long,x-lrg 10-20 mmHg dapagliflozin propanediol (Farxiga) 5 mg PO DAILY diltiazem HCl ER 240 mg PO DAILY estradiol 0.01%(0.1mg/gram) (Estrace) pea size to urethra openning vaginally QD; ezetimibe (Zetia) 10 mg PO DAILY fluticasone furoate-vilanterol 100-25 mcg/dose (Breo Ellipta) 1 inh inhalation DAILY folic acid 1 mg PO DAILY furosemide 40 mg PO BID gabapentin 300 mg PO BID hospital bed As directed incontinence pad, liner, disp As directed levothyroxine 50 mcg PO QAM lidocaine 5% (Lidoderm) 1 patch topical DAILY lisinopril 5 mg PO BID meclizine 25 mg PO DAILY PRN metolazone 2.5 mg PO Q OTHER DAY minocycline 100 mg PO BID miscellaneous medical supply 1 ea miscellaneous .QD mupirocin 2% 1 appl topical TID pantoprazole 40 mg PO DAILY@0600 potassium chloride ER 20 mEq (2 x 10 mEq) PO DAILY sertraline 50 mg PO DAILY Shower Chair As directed tirzepatide (weight loss) (Zepbound) 2.5 mg (0.5 mL) subcut QWEEK tramadol 50 mg PO TID PRN Wegovy (semaglutide (weight loss)) 0.25 mg (0.5 mL) subcut QWEEK NS HPI Comments Details: 83-year-old female with seropositive RA returns for follow-up. She is on minocycline 100 mg Twice daily. She states that she feels that minocycline has not been helping her much. She states that she has noticed swelling , erythema and nodules of her fingers. She is prescribed acetaminophen with codeine 3. By orthopedist. She also takes tramadol 50 mg sometimes. She states that she either takes tramadol 50 mg once daily or 2 tablets of the acetaminophen with codeine Initial history: This is an 82-year-old female who presents for evaluation of rheumatoid arthritis. Patient presents with her daughter. She has a poor historian. She stated that she was diagnosed with RA in her 60s. She states that she has been on different medicines and usually they would be discontinued due to a side effect. Currently she has been on sulfasalazine 1000 mg Twice daily since around 2019. Prescribed by Dr. Salazar and continued by her PCP. Arava was ineffective. She could not tolerate methotrexate and hydroxychloroquine. She developed right foot osteomyelitis once after Remicade was started. She states that she has diffuse pain. She has pain in her hands, her neck, shoulders, back, knees. She stated that she had reconstructive surgery for her right foot years ago. She gets periodic gel injections for both knees every 6 months. 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 The prescription dates back to 2006. She takes it as needed and it is helpful She has a history of blood clot and is on Eliquis regularly. Most recent DVT was around 9 years ago. Patient also has history of COPD. She uses 2 L of oxygen as needed. She never smoked. She also has history of obstructive sleep apnea and uses a CPAP. She is unaware of any family history of an autoimmune rheumatic disease. [facility] Medical History Ankle pain, right Hypokalemia Persistent atrial fibrillation Acute on chronic diastolic (congestive) heart failure LILY (obstructive sleep apnea) Acute respiratory failure with hypoxia Hypoxia (HFpEF) heart failure with preserved ejection fraction Acute respiratory failure with hypoxia Depression Physical deconditioning Cervical radiculopathy due to degenerative joint disease of spine Venous insufficiency Recurrent pulmonary embolism Diabetes Hyperlipidemia Hemorrhoids Obesity Rheumatoid arthritis COPD (chronic obstructive pulmonary disease) Atrial fibrillation Hypertension Surgical History History of carpal tunnel syndrome History of surgery Family History Father No problems noted. Mother No problems noted. Social History Household Members: Family Housing: House Do you presently have visiting nurse or other home services: No Alcohol intake: never Patient Tobacco Use Status: Never used Tobacco e-Cigarette/Vaping Use: Never Used service: No Current occupational status: retired Cognitive needs: No Hearing needs: No Vision needs: Yes Review of Systems Musc Reports deformity, Reports arthralgias, Reports joint swelling and Reports stiffness Physical Exam Vital Signs: Last Vital Signs Pulse 69 06/06/24 14:45 BP 162/90 H 06/06/24 14:45 Pulse Ox 92 06/06/24 14:45 Oxygen Delivery Method Room Air 06/06/24 14:45 BMI result Body Mass Index 38.7 Const General: cooperative, healthy appearing and comfortable Nutritional Appearance: obese morbidly obese Orientation/consciousness: patient oriented x3 Limitations: no limitations HEENT Head: Yes normocephalic and Yes atraumatic Mouth: moist mucous membranes Resp Effort & Inspection: normal respiratory effort and able to speak in complete sentences Auscultation: diminished lung sounds Skin General skin exam: no rashes or lesions noted Neuro General: patient oriented x3 Extrem Other: Right wrist with mild swelling as well as swelling over the right ulnar styloid, mildly tender to palpation Mild left wrist swelling, tender to palpation Bilateral squaring of 1st CMC joints Prominence and synovial thickening of MCPs bilaterally . Right 2nd 3rd and 4th MCP tenderness Right 2nd and 3rd PIP prominent Lorraine's nodes that are tender Prominent and tender Heberden's nodes right Mild flexion contracture and ulnar deviation at the MCPs Mild flexion contracture at the PIPs Left hand left 2nd and 3rd MCP swelling and tenderness Left 2nd and 3rd PIP swelling and tenderness on top of Lorraine's nodes Multiple tender Heberden's nodes left hand Mildly reduced right shoulder abduction Normal range of motion of left shoulder Significant right shoulder crepitus Normal nailfold capillaroscopy Significant knee crepitus bilaterally Crowding of toes on the left Bilateral bunions Possible tophus on right foot bunion Fibular deviation of left foot toes Assessment & Plan Assessment & Plan (1) Rheumatoid arthritis: Comment: -ve RF-ve CCP deforming dx around 1999 gold salts. Not tolerated Methotrexate not tolerated Arava ineffective Hydroxychloroquine not tolerated Remicade for approx 3 months, left foot osteomyelitis SSZ around 2018 DC 10/2023 ineffective Minocycline 10/2023 At least partially effective Code(s): M06.9 - Rheumatoid arthritis, unspecified Category: Medical Qualifiers: Rheumatoid arthritis location: multiple sites Rheumatoid factor presence: with rheumatoid factor Qualified Code(s): M05.79 - Rheumatoid arthritis with rheumatoid factor of multiple sites without organ or systems involvement Plan: This is an 83-year-old female with deforming RA who presents for follow-up. On minocycline 100 mg Twice daily. Today patient is complaining that minocycline is no longer helping. Upon evaluation it seems that the majority of her complaints are due to significant bilateral hand osteoarthritis it is hard to evaluate whether patient also has residual RA disease activity, she does have a few swollen joints Advised patient to discontinue minocycline one-month and watch her symptoms, if symptoms get worse then minocycline needs to be restarted, can consider adding another DMARDs such as azathioprine If symptoms are this thin then can consider starting azathioprine Given patient's numerous comorbidities including heart failure, COPD, history of DVT/PE, diabetes, history of diabetic foot infection with Remicade, most biologic DMARDs and MELLISSA inhibitors are relatively contraindicated There is some suspicion of gouty tophi on top of her arthritis and rheumatoid arthritis. It does not look like patient ever had a gout flare-up. Uric acid level is quite elevated. Labs in one-month and before next visit in 2 months (2) Generalized osteoarthritis: Code(s): M15.9 - Polyosteoarthritis, unspecified Category: Medical Plan: Patient quite frustrated with her generalized osteoarthritis. She is already on gabapentin which can help some. She can not take NSAIDs as she is on Eliquis. Tylenol is not helpful. She is prescribed Tylenol with codeine by Orthopedics, I also added tramadol to use as needed last visit, she states that she either takes tramadol once daily or takes 2 tablets of the acetaminophen with codeine. She states that both meds provide little relief. Referred patient to occupational therapy for bilateral hand osteoarthritis Advised patient to consider buying a paraffin wax machine Plan I spent 27 minutes reviewing patient's chart, evaluating patient, ordering diagnostic workup, counseling patient and documenting in the chart Orders: Orders Complete Blood Count Auto Diff 1 Month - Rheumatoid arthritis with rheumatoid factor of multiple sites without organ or systems involvement Comprehensive Met. Panel 1 Month - Rheumatoid arthritis with rheumatoid factor of multiple sites without organ or systems involvement OT Evaluation and Treatment Today M15.9 - Polyosteoarthritis, unspecified Complete Blood Count Auto Diff 2 Months . - Rheumatoid arthritis with rheumatoid factor of multiple sites without organ or systems involvement Comprehensive Met. Panel 2 Months . - Rheumatoid arthritis with rheumatoid factor of multiple sites without organ or systems involvement C Reactive Protein 2 Months . - Rheumatoid arthritis with rheumatoid factor of multiple sites without organ or systems involvement Erythrocyte Sedimentation Rate 2 Months - Rheumatoid arthritis with rheumatoid factor of multiple sites without organ or systems involvement C Reactive Protein 1 Month M05.79 - Rheumatoid arthritis with rheumatoid factor of multiple sites without organ or systems involvement Erythrocyte Sedimentation Rate 1 Month M05.79 - Rheumatoid arthritis with rheumatoid factor of multiple sites without organ or systems involvement Coding Level of Care Code Est Pt Level 4 (86086) Diagnoses Rheumatoid arthritis involving multiple sites with positive rheumatoid factor M05.79 Rheumatoid arthritis location: multiple sites Rheumatoid factor presence: with rheumatoid factor Generalized osteoarthritis M15.9
[2024-06-06 14:45] VITALS: BP 162/90; PULSE 69; O2SAT 92; BMI 38.7
== END 2024-06-06 15:14 | disposition home or self-care (01) ==
PROVIDERS: PCP Internal Medicine; Visit Provider Student in an Organized Health Care Education/Training Program
DX: M05.79 Rheumatoid arthritis with rheumatoid factor of multiple sites without organ or systems involvement (principal); M15.9 Polyosteoarthritis, unspecified
CPT/HCPCS: 99214

== ENCOUNTER → 2024-06-06 14:21 | Outpatient (BNVA) | payer MEDICARE, MEDICAID, SELFPAY | PROVIDERS: PCP Internal Medicine; Visit Provider Student in an Organized Health Care Education/Training Program | DX: M05.79 Rheumatoid arthritis with rheumatoid factor of multiple sites without organ or systems involvement (principal); M15.9 Polyosteoarthritis, unspecified; J44.9 Chronic obstructive pulmonary disease, unspecified; Z99.81 Dependence on supplemental oxygen; Z79.01 Long term (current) use of anticoagulants; Z86.718 Personal history of other venous thrombosis and embolism | CPT/HCPCS: 99212 ==

== ENCOUNTER 2024-06-23 10:12 | Outpatient (REF) | payer MEDICARE, MEDICAID, SELFPAY ==
[2024-06-23 13:55] LABS: MANUAL DIFF FLAG NO
[2024-06-23 13:58] LABS: Basophils Percent Auto 0.7 % (0-2); Eosinophils Absolute Auto 0.1 X10*3/uL (0.0-0.4); Eosinophils Percent Auto 2.6 % (0-4); Hematocrit 45.2 % (37.0-47.0); Hemoglobin 14.5 g/dl (12.0-16.0); Imm Gran Abs Auto 0.02 X10*3/uL (0.00-0.03); Imm Gran Pct Auto 0.4 % (0.0-0.4); Lymphocytes Absolute Auto 1.5 X10*3/uL (1.2-4.9); Lymphocytes Percent Auto 27.7 % (20-40); Mean Corpuscular HGB Conc 32.1 g/dl (31.0-35.0); Mean Corpuscular Hemoglobin 30.9 pg (27.0-33.0); Mean Corpuscular Volume 96.4 fL (80.0-98.0); Mean Platelet Volume 11.8 fL (9.4-12.3); Monocytes Absolute Auto 0.6 X10*3/uL (0.1-1.2); Monocytes Percent Auto 10.3 % (2-11); Neutrophils Absolute Auto 3.2 x10*3/uL (2.0-8.3); Neutrophils Percent Auto 58.3 % (45-73); Platelet Count 214 X10*3/uL (160-400); Red Blood Count 4.69 X10*6/uL (4.20-5.50); Red Cell Distribution Width 12.9 % (11.0-16.0); White Blood Count 5.4 X10*3/uL (4.8-10.8)
[2024-06-23 14:12] LABS: Estimated Average Glucose 120 mg/dL; Hemoglobin A1C 151.2233 umol/L; Hemoglobin A1c % 5.8 % (<6.0); Total Hemoglobin (HGBA1C) 3778.6862 umol/L
[2024-06-23 14:33] LABS: Erythrocyte Sedimentation Rate 21 MM/HR (0-20)
[2024-06-23 14:47] LABS: Alanine Aminotransferase 15 U/L (0-31); Albumin Level 4.1 g/dL (3.5-5.0); Alkaline Phosphatase 88 U/L (39-117); Anion Gap 16 (12-20); Aspartate Amino Transferase 26 U/L (5-31); Bilirubin Total 0.5 mg/dL (0.0-1.0); Blood Urea Nitrogen 18 mg/dL (9-16); C Reactive Protein 0.93 mg/dL (< or = 0.50); Calcium 9.6 mg/dL (8.4-10.2); Carbon Dioxide 30 mmol/L (22-29); Chloride 99 mmol/L (96-108); Cholesterol 249 mg/dL (<200); Estimated Glomerular Filt Rate > 60; Glucose Fasting 108 mg/dL (60-99); Glucose Random 108 mg/dL (60-115); HDL Cholesterol 35 mg/dL (>40); LDL Cholesterol Calculated 153 mg/dL (<100); Potassium 4.5 mmol/L (3.3-5.1); Sodium 140 mmol/L (135-145); Triglycerides 307 mg/dL (<150)
[2024-06-23 15:11] LABS: TSH reflex Free T4 3.53 uIU/mL (0.32-4.0)
== END 2024-06-23 10:13 | disposition home or self-care (01) ==
LOC: HO.HMGCLDS 10:12
PROVIDERS: Student in an Organized Health Care Education/Training Program; PCP Internal Medicine; Visit Provider Internal Medicine
DX: I10 Essential (primary) hypertension (principal); E78.5 Hyperlipidemia, unspecified; I50.30 Unspecified diastolic (congestive) heart failure; I48.91 Unspecified atrial fibrillation; N18.30 Chronic kidney disease, stage 3 unspecified; E11.9 Type 2 diabetes mellitus without complications; E03.9 Hypothyroidism, unspecified; M05.79 Rheumatoid arthritis with rheumatoid factor of multiple sites without organ or systems involvement
CPT/HCPCS: 36415; 80053; 80061; 83036; 84443; 85025; 85652; 86140

== ENCOUNTER 2024-06-26 08:59 | Outpatient (AMB) | payer MEDICARE, MEDICAID, SELFPAY ==
[2024-06-26 09:12] VITALS: BP 132/64; PULSE 74; TEMP 37.1; O2SAT 95; BMI 38.4
--- NOTE | 2024-06-26 09:12 | MHC.PC.OV ---
Vital Signs 06/26/24 09:12 Height 5 ft 6 in Weight 238 lb BMI 38.4 BP 132/64 Blood Pressure Location Rt brachial Position Sitting Pulse 74 Pulse Source Pulse Oximeter Temp 98.8 F Temp Source Oral Pulse Oximetry (%) 95 Oxygen Delivery Method Room Air Intake Visit Reasons: 4 month follow up Intake Note: Pt is here today for 4 months follow up visit on labs. Allergies atorvastatin [From Lipitor] Allergy (Unknown, Verified 06/26/24 09:14) Leg cramps ciprofloxacin [From Cipro] Allergy (Unknown, Verified 06/26/24 09:14) Stomach Upset ezetimibe [From Zetia] Allergy (Unknown, Verified 06/26/24 09:14) leg cramps hydrochlorothiazide [From Avalide] Allergy (Unknown, Verified 06/26/24 09:14) Stomach Upset infliximab [From Remicade] Allergy (Unknown, Verified 06/26/24 09:14) Infection irbesartan [From Avalide] Allergy (Unknown, Verified 06/26/24 09:14) Stomach Upset metformin Allergy (Unknown, Verified 06/26/24 09:14) nausea moxifloxacin [From Avelox] Allergy (Unknown, Verified 06/26/24 09:14) Stomach Upset nifedipine Allergy (Unknown, Verified 06/26/24 09:14) upset stomach pravastatin Allergy (Unknown, Verified 06/26/24 09:14) stomach upset rosuvastatin [From Crestor] Allergy (Unknown, Verified 06/26/24 09:14) Leg cramps terazosin [From Hytrin] Allergy (Unknown, Verified 06/26/24 09:14) Stomach Upset valsartan [From Diovan] Allergy (Unknown, Verified 06/26/24 09:14) Stomach Upset warfarin [WARFARIN] Allergy (Unknown, Verified 06/26/24 09:14) Anaphylaxis Medication List - Last Reconciled 06/26/24 by Salud Lester MD acetaminophen 1,000 mg PO BID albuterol sulfate 90 mcg/actuation 2 puffs inhalation Q4H PRN albuterol sulfate 0.63 mg (3 mL) inhalation Q4-6H PRN apixaban (Eliquis) 5 mg PO BID blood sugar diagnostic As directed blood sugar diagnostic (FreeStyle Test strips) check glucose once a day blood-glucose meter As directed compr.stocking,knee,long,x-lrg 10-20 mmHg diltiazem HCl ER 240 mg PO DAILY estradiol 0.01%(0.1mg/gram) (Estrace) pea size to urethra openning vaginally QD; ezetimibe (Zetia) 10 mg PO DAILY Farxiga (dapagliflozin propanediol) 5 mg PO DAILY NS fluticasone furoate-vilanterol 100-25 mcg/dose (Breo Ellipta) 1 inh inhalation DAILY folic acid 1 mg PO DAILY furosemide 40 mg PO BID gabapentin 300 mg PO BID hospital bed As directed incontinence pad, liner, disp As directed levothyroxine 50 mcg PO QAM lidocaine 5% (Lidoderm) 1 patch topical DAILY lisinopril 5 mg PO BID meclizine 25 mg PO DAILY PRN miscellaneous medical supply 1 ea miscellaneous .QD mupirocin 2% 1 appl topical TID pantoprazole 40 mg PO DAILY@0600 potassium chloride ER 20 mEq (2 x 10 mEq) PO DAILY sertraline 50 mg PO DAILY Shower Chair As directed tramadol 50 mg PO TID PRN Tobacco use date assessed: 06/26/24 Fall risk assessment: No Falls in past year Last assessed Fall Risk: 06/26/24 Dental Screening Dental Screen Date: 06/26/24 Did you have a dental visit in the last 12 months?: No Did you have a dental problem in the last 6 months where you did not have access to dental care?: No Was dental information given to patient?: Patient declined HPI 4 month follow up HPI Details Pt presents for f/u HTN, DM 2, paroxysmal AFib, hypothyroid, cardiomyopathy with preserved ejection fraction, stable on meds. Patient follows up with brake lining maker for RA. [facility] Medical History (Updated 06/26/24 @ 10:15 by Salud Lester MD) Ankle pain, right Hypokalemia LILY (obstructive sleep apnea) (HFpEF) heart failure with preserved ejection fraction Depression Physical deconditioning Cervical radiculopathy due to degenerative joint disease of spine Venous insufficiency Recurrent pulmonary embolism Diabetes Hyperlipidemia Hemorrhoids Obesity Rheumatoid arthritis COPD (chronic obstructive pulmonary disease) Atrial fibrillation Hypertension Surgical History History of carpal tunnel syndrome History of surgery Family History Father No problems noted. Mother No problems noted. Social History Household Members: Family Housing: House Do you presently have visiting nurse or other home services: No Alcohol intake: never Patient Tobacco Use Status: Never used Tobacco e-Cigarette/Vaping Use: Never Used service: No Current occupational status: retired Cognitive needs: No Hearing needs: No Vision needs: Yes Questionnaire PHQ-9 Over the last 2 weeks, how often have you been bothered by any of the following problems? 1. Little interest or pleasure in doing things: not at all 2. Feeling down, depressed, or hopeless: not at all 3. Trouble falling or staying asleep, or sleeping too much: not at all 4. Feeling tired or having little energy: not at all 5. Poor appetite or overeating: not at all 6. Feeling bad about yourself - or that you are a failure or have let yourself or your family down: not at all 7. Trouble concentrating on things, such as reading the newspaper or watching television: not at all 8. Moving or speaking so slowly that other people could have noticed. Or the opposite - being so fidgety or restless that you have been moving around a lot more than usual: not at all 9. Thoughts that you would be better off or of hurting yourself in some way: not at all Total score: 0 Depression Screening Interpretation: Negative Depression Screening Done: Yes 53021 - PHQ-9 Billing: Yes Source: Developed by Drs. Gume Adam, Sandhya Chopra, Major Headley and colleagues, with an educational [email or web address] from [email or web address]. Thrive Questionnaire Date Thrive assessed: 06/26/24 I am a: Patient What is your living situation today?: I have a steady place to live Within the past 12 months, did the food you bought not last and you didn't have the money to get more?: I choose not to answer this question Within the past 12 months, did you worry whether your food would run out before you got money to buy more?: I choose not to answer this question Do you have trouble paying for medicines?: No Do you have trouble getting transportation to medical appointments?: No Do you have trouble paying your heating and electricity bill?: No Do you have trouble taking care of your child, family member or friend?: I choose not to answer this question Do you have trouble with day-to-day activities such as bathing, preparing meals, shopping, managing finances, etc.?: I choose not to answer this question Are you currently unemployed and looking for a job?: I choose not to answer this question Are you interested in more education?: I choose not to answer this question Please select the resources that you would like help with: None Currently or been in a relationship where the following occur: I choose not to answer THRIVE Score: 0 AUDIT C Alcohol Use Questionnaire (AUDIT-C) 1. How often do you have a drink containing alcohol?: Never 3. How often do you have six or more drinks on one occasion?: Never Total Score: 0 OTILIO-7 AMB Questionnaire OTILIO-7 Date OTILIO - 7 assessed: 06/26/24 Feeling nervous, anxious, or on edge: 0 = Not at all Not being able to stop or control worryin = Not at all Worrying too much about different things: 0 = Not at all Trouble relaxin = Not at all Being so restless that it is hard to sit still: 0 = Not at all Becoming easily annoyed or irritable: 0 = Not at all Feeling afraid as if something awful might happen: 0 = Not at all Total OTILIO-7 score (0-4 normal; 5-9 mild; 10-14 moderate; 15-21 severe): 0 Source: Developed by Drs. Gume Adam, Sandhya Chopra, Major Headley and colleagues, with an educational [email or web address] from [email or web address]. OTILIO-7 Assessment Billing OTILIO-7 Assessment Tool: OTILIO-7 Assessment 19364 Review of Systems Const All systems reviewed & are unremarkable except as noted in HPI and below Eyes Reports no additional complaints ENT Reports no additional complaints Card Reports no additional complaints Resp Reports no additional complaints GI Reports no additional complaints Reports no additional complaints Physical exam (Primary Care) Vital Signs: Last Vital Signs Temp 98.8 F 06/26/24 09:12 Pulse 74 06/26/24 09:12 BP 132/64 06/26/24 09:12 Pulse Ox 95 06/26/24 09:12 Oxygen Delivery Method Room Air 06/26/24 09:12 BMI result Body Mass Index 38.4 Tobacco/Smoking Status: Tobacco use Status Tobacco use date assessed 06/26/24 06/26/24 09:15 Patient Tobacco Use Status Never used Tobacco 06/26/24 09:15 e-Cigarette/Vaping Use Never Used 06/26/24 09:13 PHQ-9: PHQ-9 Score PHQ-9: Total score 0 06/26/24 09:15 Depression Screening Interpretation: Negative Thrive Assessment: Date of Thrive Assessment Date Thrive assessed 06/26/24 06/26/24 09:15 Currently or been in a relationship where the following occur: I choose not to answer Const General: no acute distress HENMT Head: Yes normal to inspection Ears: hearing grossly normal bilaterally General nose exam: Normal external nose present Face and sinus: Yes normal facial exam Mouth: Normal oral and palatal mucosa present Throat: Yes posterior oropharynx normal Eyes General: appearance normal, both eyes and all related structures Neck Neck: Yes no lymphadenopathy and Yes supple Resp Effort & Inspection: normal respiratory effort Auscultation: clear to auscultation bilaterally Cardio Rhythm: regular rhythm Heart sounds: S1 normal heart sound present and S2 normal heart sound present GI Inspection: Yes normal to inspection Palpation (GI): Soft to palpation Percussion: Yes normal to percussion Auscultation: normal bowel sounds Coding Level of Care Code Est Pt Level 4 (00511) Complex EM visit Add On G2211 Diagnoses Atrial fibrillation I48.91 COPD (chronic obstructive pulmonary disease) J44.1 COPD type: COPD with acute exacerbation Rheumatoid arthritis involving multiple sites with positive rheumatoid factor M05.79 Rheumatoid arthritis location: multiple sites Rheumatoid factor presence: with rheumatoid factor Diabetes E11.9 (HFpEF) heart failure with preserved ejection fraction I50.30 CKD (chronic kidney disease) stage 3, GFR 30-59 ml/min N18.30 Hypothyroid E03.9 Additional Codes OTILIO-7 Assessment Billing - OTILIO-7 Assessment Tool: OTILIO-7 Assessment 97404 ([id number]) PHQ-9 - 18109 - PHQ-9 Billing: Yes ([id number]) Assessment & Plan Assessment & Plan (1) Atrial fibrillation: Comment: permanent Code(s): I48.91 - Unspecified atrial fibrillation Category: Medical Plan: Anticoagulated on Eliquis and rate controlled on diltiazem obtain 48 hour Holter (2) COPD (chronic obstructive pulmonary disease): Code(s): J44.9 - Chronic obstructive pulmonary disease, unspecified Category: Medical Qualifiers: COPD type: COPD with acute exacerbation Qualified Code(s): J44.1 - Chronic obstructive pulmonary disease with (acute) exacerbation Plan: Continue Breo and supplemental O2 at night for nocturnal hypoxia (3) Rheumatoid arthritis: Comment: -ve RF-ve CCP deforming dx around 1999 gold salts. Not tolerated Methotrexate not tolerated Arava ineffective Hydroxychloroquine not tolerated Remicade for approx 3 months, left foot osteomyelitis SSZ around 2018 DC 10/2023 ineffective Minocycline 10/2023 At least partially effective Code(s): M06.9 - Rheumatoid arthritis, unspecified Category: Medical Qualifiers: Rheumatoid arthritis location: multiple sites Rheumatoid factor presence: with rheumatoid factor Qualified Code(s): M05.79 - Rheumatoid arthritis with rheumatoid factor of multiple sites without organ or systems involvement Plan: Follow-up with rheumatology (4) Diabetes: Comment: A1C goal less than 8 Code(s): E11.9 - Type 2 diabetes mellitus without complications Category: Medical Plan: A1c is 5.6, continue ADA diet and Farxiga (5) (HFpEF) heart failure with preserved ejection fraction: Comment: Echo 01/2021, severely increased left ventricle thickness, hyperdynamic LVEF, mild MS, myocardial perfusion nl 04/20, Echo 09/21 unchanged Code(s): I50.30 - Unspecified diastolic (congestive) heart failure Category: Medical Plan: Continue current medications monitor echo annually (6) CKD (chronic kidney disease) stage 3, GFR 30-59 ml/min: Code(s): N18.30 - Chronic kidney disease, stage 3 unspecified Category: Medical Plan: Avoid nephrotoxins monitor renal function (7) Hypothyroid: Code(s): E03.9 - Hypothyroidism, unspecified Category: Medical Plan: Continue levothyroxine follow-up in 4 months Orders: Orders Hemoglobin A1c 4 Months E03.9 - Hypothyroidism, unspecified, I48.91 - Unspecified atrial fibrillation, I50.30 - Unspecified diastolic (congestive) heart failure, N18.30 - Chronic kidney disease, stage 3 unspecified Complete Blood Count Auto Diff 4 Months E03.9 - Hypothyroidism, unspecified, I48.91 - Unspecified atrial fibrillation, I50.30 - Unspecified diastolic (congestive) heart failure, N18.30 - Chronic kidney disease, stage 3 unspecified Microalbumin, Random (w Creat) 4 Months E03.9 - Hypothyroidism, unspecified, I48.91 - Unspecified atrial fibrillation, I50.30 - Unspecified diastolic (congestive) heart failure, N18.30 - Chronic kidney disease, stage 3 unspecified ECG holter monitor 48 hour Today I48.91 - Unspecified atrial fibrillation Comprehensive [place]. Panel Fast 4 Months E03.9 - Hypothyroidism, unspecified, I48.91 - Unspecified atrial fibrillation, I50.30 - Unspecified diastolic (congestive) heart failure, N18.30 - Chronic kidney disease, stage 3 unspecified Lipid Panel 4 Months E03.9 - Hypothyroidism, unspecified, I48.91 - Unspecified atrial fibrillation, I50.30 - Unspecified diastolic (congestive) heart failure, N18.30 - Chronic kidney disease, stage 3 unspecified Medications: New tiotropium bromide (Spiriva with HandiHaler) puncture 1 cap using device; one dose = 2 inhalations 1 cap inhalation DAILY 90 inhalations 3RF
--- OUTSIDE RECORDS SUMMARY | 2024-06-26 13:19 | XMS_ITS ---
Author Organization [facility] Address [address] [place] [id number] Care Team Providers Care Radiology Physician Name Role Phone Trevon PINEDA, Salud Primary Care Provider Unavaila Arsh Rincon Unavailable [phone] Encounters Encounter Location Date [facility] [address] [place] [id number] 12/20/2023 Arsh West Plan Of Treatment No Information Progress Notes * Camille GUZMANDOB:1940 (83 yo F)Acc No.[id number]:12/20/2023 Progress Notes Patient:?TIMKELLENNenoCamille Provider:?Arsh West DPM :1940???Age:82 Y???Sex:Female D ate:12/20/2023 Address: [id number] Pcp:Salud Lester MD Subjective: * Chief Complaints: * ??? * Medical History:? Objective: * Vitals:? Assessment: Plan: * Treatment: * Images: * The named appointment provid er may or may not be the originator of this progress note, and it is not deemed complete until electronically signed by the appointment provider. Sign off status: Pending * Provider:?Arsh West DPM Date:?2023 Generated for Linda shin/Reynaldo/eTransmitting on:?06/26/2024 01:18 PM EST
--- OUTSIDE RECORDS SUMMARY | 2024-06-26 13:19 | XMS_ITS | Encounter Summary ---
Author Organization [facility] Address [address] [place] [address] Care Team Providers Care Irrigation Engineer Name Role Phone Salud Lester MD Primary Care Provider Geoffrey Arnulfo Sheldon MD Unavailable [phone] Laura Palma NP Unavailable [phone] Encounter Details Date Type Department Care Team Description 05/04/2018 Transfer Records Medical Records [address] [place] [address] Abstract, Provider Social History Tobacco Use Types Packs/Day Years Used Date Smoking Tobacco: Never Smokeless Tobacco: Never Alcohol Use Standard Drinks/Week Comments No 0 (1 standard drink = 0.6 oz pur e alcohol) Sex Assigned at Date Recorded Not on file documented as of this encounter Plan of Treatment Not on file documented as of this encounter Visit Diagnoses Not on filedocumented in this encounter Care Teams Irrigation Engineer Relationship Specialty Start Date End Date Salud Lester MD PCP - General Internal Medicine 03/29/18 Arnulfo Wilks MD [address] [place] [address] Specialist Cardiovascular Disease 08/22/20 Laura Palma NP [address] [place] [address] Cardiology 08/22/20 documented as of this encounter
--- OUTSIDE RECORDS SUMMARY | 2024-06-26 13:19 | XMS_ITS | Encounter Summary ---
Author Organization [facility] Address [address] [place] [address] Care Team Providers Care Smelter Charger Name Role Phone Salud Lester MD Primary Care Provider Geoffrey Arnulfo Sheldon MD Unavailable [phone] Laura Palma NP Unavailable [phone] Encounter Details Date Type Department Care Team Description 10/15/2020 Drop Wire Aliner Report Medical Records [address] [place] [address] Abstract, Provider Social History Tobacco Use Types Packs/Day Years Used Date Smoking Tobacco: Never Smokeless Tobacco: Never Alcohol Use Standard Drinks/Week Comments No 0 (1 standard drink = 0.6 oz pur e alcohol) Sex Assigned at Date Recorded Not on file documented as of this encounter Plan of Treatment Not on file documented as of this encounter Procedures Procedure Name Priority Date/Time Associated Diagnosis Comments OUTSIDE PLAIN FILM Routine 10/15/2020 documented in this encounter Results * OUTSIDE PLAIN FILM (10/15/2020) Provider Abstract RADIOLOGY documented in this encounter Visit Diagnoses Not on filedocumented in this encounter Care Teams Smelter Charger Relationship Specialty Start Date End Date Salud Lester MD PCP - General Internal Medicine 03/29/18 Arnulfo Wilks MD [address] [place] [address] Specialist Cardiovascular Disease 08/22/20 Laura Palma NP [address] [place] [address] Cardiology 08/22/20 documented as of this encounter
--- OUTSIDE RECORDS SUMMARY | 2024-06-26 13:19 | XMS_ITS | Encounter Summary ---
Author Organization [facility] Address [address] [place] [address] Care Team Providers Care Vacuum Extractor Operator Name Role Phone Salud Lester MD Primary Care Provider Arnulfo Mccollum MD Unavailable [phone] Laura Palma NP Unavailable [phone] Reason for Visit * Reason Onset Date Comments [facility] Special Procedure Gi 01/19/2020 endos copy Encounter Details Date Type Department Care Team Description 01/19/2020 Telephone Gastroenterology - [address] [address] Hoa Sewell DScPAS [facility] Procedure Gi (endoscopy) Social History Tobacco Use Types Packs/Day Years Used Date Smoking Tobacco: Never Smokeless Tobacco: Never Alcohol Use Standard Drinks/Week Comments No 0 (1 standard drink = 0.6 oz pur e alcohol) Sex Assigned at Date Recorded Not on file documented as of this encounter Miscellaneous Notes * Telephone Encounter - Karmen Fontanez - 01/19/2020 12:38 PM EDT Left message for patient daughter Soo to call back and schedule egd for her mother * Telephone Encounter - Ellen Molina - 01/19/2020 11:10 AM EDT Caller requesting call back from provider: Is the caller the patient? NO If caller is not the patient, what is the callers name?Soo Callers relationship to patient? daughter If person calling is not the patient themselves, is there a verbal release in FYI or permanent comments for this person: YES Reason for call back: Contact daughter to schedule endoscopty - patient speak Romanian and daughter is on verbal and brings patient to office - hosp. appointment Caller offered to speak with the nurse for assistance: NO Response: Contact Soo [phone] to schedule endoscopy documented in this encounter Plan of Treatment Not on file documented as of this encounter Visit Diagnoses Not on filedocumented in this encounter Care Teams Vacuum Extractor Operator Relationship Specialty Start Date End Date Salud Lester MD PCP - General Internal Medicine 03/29/18 Arnulfo Wilks MD [address] [place] [address] Specialist Cardiovascular Disease 08/22/20 Laura Palma NP [address] [place] [address] Cardiology 08/22/20 documented as of this encounter
--- OUTSIDE RECORDS SUMMARY | 2024-06-26 13:19 | XMS_ITS | Encounter Summary ---
Author Organization [facility] Address [address] [facility] [place] [address] Care Team Providers Care Commercial Service Technician Name Role Phone Salud Lester MD Primary Care Provider Arnulfo Mccollum MD Unavailable [phone] Laura Palma NP Unavailable [phone] Encounter Details Date Type Department Care Team Description 03/16/2019 Orders Only Gastroenterology - [address] [place] [phone] Hoa Sewell, DScPAS Social History Tobacco Use Types Packs/Day Years [...] on filedocumented in this encounter Care Teams Commercial Service Technician Relationship Specialty Start Date End Date Salud Lester MD PCP - General Internal Medicine 03/29/18 Arnulfo Wilks MD [address] [place] [address] Specialist Cardiovascular Disease 08/22/20 Laura Palma NP [address] [place] [address] Cardiology 08/22/20 documented as of this encounter
--- OUTSIDE RECORDS SUMMARY | 2024-06-26 13:19 | XMS_ITS | Encounter Summary ---
Author Organization [facility] Address [address] [place] [address] Care Team Providers Care Craps Dealer Name Role Phone Salud Lester MD Primary Care Provider Arnulfo Mccollum MD Unavailable [phone] Laura Palma NP Unavailable [phone] Encounter Details Date Type Department Care Team Description 11/27/2019 Telephone Gastroenterology - [address] [place] [address] Hoa Sewell, ReneaPAS Social History Tobacco Use Types Packs/Day Years Used Date Smoking Tobacco: Never Smokeless Tobacco: Never Alcohol Use Standard Drinks/Week Comments No 0 (1 standard drink = 0.6 oz pur e alcohol) Sex Assigned at Date Recorded Not on file documented as of this encounter Miscellaneous Notes * Telephone Encounter - Eden Finnegan M.A. - 11/27/2019 1:33 PM EDT I will when I get back to my seat :) documented in this encounter Plan of Treatment Not on file documented as of this encounter Visit Diagnoses Not on filedocumented in this encounter Care Teams Craps Dealer Relationship Specialty Start Date End Date Salud Lester MD PCP - General Internal Medicine 03/29/18 Arnulfo Wilks MD [address] [place], [place] [phone] Specialist Cardiovascular Disease 08/22/20 Laura Palma, SIDRA [address] [place] [address] Cardiology 08/22/20 documented as of this encounter
--- OUTSIDE RECORDS SUMMARY | 2024-06-26 13:19 | XMS_ITS | Clinical Summary ---
Author Organization [facility] Address [address] [place] [address] Phone Care Team Providers Care Swimming Pool Servicer Name Role Phone Salud Lester MD Primary Care Provider [phone] Allergies Active Allergy Reactions Criticality Noted Date Comments Atorvastatin 04/12/2009 Ciprofloxacin 12/19/2015 Ezetimibe 04/12/2009 Irbesartan-Hydrochlorothiazide 10/25 Moxifloxacin 06/02/2012 Nifedipine 10/25/2009 Rosuvastatin Calcium 04/12/2009 Terazosin 07/29/2009 Valsartan 07/29/2009 Warfarin 04/17/2013 Medications Medication Sig Dispensed Refills Start Date End Date Status albuterol HFA (PROAIR HFA ; PROVENTIL HFA ; VENTOLIN HFA) 90 mcg/actuation inhaler INHALE 1 PUFF EVERY 4 HOURS NEEDED. 07/07/2016 Active dilTIAZem XR (DILACOR XR) 240 mg 24 hr capsule Take 1 Capsule by mouth daily. 11/14/2021 Active folic acid (FOLVITE) 1 mg tablet Take 1 mg by mouth daily. Active furosemide (LASIX) 40 mg tablet Take 1.5 mg by mouth 2 times daily. Active gabapentin (NEURONTIN) 300 mg capsule Take 300 mg by mouth daily. As needed Active glipiZIDE (GLUCOTROL) 5 mg tablet Take 5 mg by mouth daily. Active levothyroxine (SYNTHROID, LEVOTHROID) 25 mcg tablet Take 25 mcg by mouth daily. Active lisinopril (PRINIVIL,ZESTRIL) 40 mg tablet Take 40 mg by mouth daily. Active meclizine (ANTIVERT) 25 mg tablet 25 mg as needed. 03/27/2016 Active metFORMIN XR (GLUCOPHAGE-XR) 500 mg 24 hr tablet 500 mg. 09/03/2010 Active pantoprazole (PROTONIX) 40 mg EC tablet Take 1 Tab by mouth daily. 08/14/2019 Active pantoprazole (PROTONIX) 40 mg EC tablet Take 40 mg by mouth daily. Active inhaler, assist devices (AEROCHAMBER PLUS FLOW-VU [facility]) 09/28/2018 Active sulfaSALAzine (AZULFIDINE) 500 mg tablet Take 500 mg by mouth 2 times daily. 11/18/2017 Active warfarin (COUMADIN) 5 mg tablet Take 5 mg by mouth See Admin Instructions. [facility] managing INR's. Active Active Problems Problem Noted Date Diagnosed Date Aortic aneurysm 09/03/2020 Overview (04/04/2024): Last Assessment & Plan: -Dilated at 4.4 cm from July 2019 -Discussed strict blood pressure control Carotid artery disease 09/03/2020 Overview (04/04/2024): Last Assessment & Plan: -50-69% LICA disease from September 2018 -followed by Dr. Lange of [facility] Chronic atrial fibrillation 09/03/2020 Overview (04/04/2024): Last Assessment & Plan: -She felt better when she was in sinus rhythm from a breathing standpoint. At this point I do not think sending her for a cardioversion would be beneficial given her severely dilated left atrium. I believe she would either require antiarrhythmic therapy or the possibility of an ablation with Dr. Chaney. I will re-refer her back to see Dr. Chaney to discuss this. -Rate controlled at this time on diltiazem, continue -[id number] = 6 (age, gender, HTN, CHF, DM), continue anticoagulation with warfarin. Risks and benefits of anticoagulation have thoroughly reviewed with the patient she verbalized understanding and agrees to continue. Bilateral bunions 09/26/2018 Diabetic polyneuropathy asso ciated with type 2 diabetes mellitus 09/26/2018 Hammer toe of left foot 09/26/2018 Esophageal reflux 12/29/2017 Rheumatoid arthritis 11/18/2017 Hypertension 07/07/2016 Overview (04/04/2024): Last Assessment & Plan: 110/64 Continue diltiazem, furosemide, and lisinopril at current doses. Anxiety 04/09/2016 Paroxysmal atrial fibrillation 04/09/2016 DVT (deep venous thrombosis) 04/02/2016 Diabetes mellitus type 2, uncomplicated 03/24/20 16 Chronic obstructive pulmonary disease 03/05/2016 Hyperlipidemia 03/05/2016 Pulmonary embolism 03/05/2016 Congestive heart failure 02/13/2016 Overview (04/04/2024): Last Assessment & Plan: -weight up 8lbs, non-compliant with low salt diet, bilateral lower extremity edemais stable -continue Lasix at current dose and focus on making better diet choices -Continue lisinopril at current dose -advised to continue daily weights and educated on importance of low-salt diet Obstructive sleep apnea 02/13/2016 Hypothyroidism 07/06/2015 Vitamin D deficiency 06/21/2015 Back pain, thoracic 06/12/2015 Nephrolithiasis 06/12/2015 Cervical radiculopathy 06/04/2015 Ovarian cyst 02/09/2014 Allergic rhinitis 02/08/2014 Goiter diffuse, nontoxic 02/07/2014 Nonalcoholic liver disease, chronic 03/31/2013 Varicose vein of leg 12/16/2012 Overview (04/04/2024): Varicose veins Encounters Date Type Department Care Team Description 05/09/2024 8:30 AM EST Consult Orthopedic Surgery - [address] [phone] Vinny Yates, DPM Acquired hallux valgus of right foot (Primary Dx); Acquired hallux valgus of left foot; Acquired hammer toe of right foot; Hammer toe of left foot; Dermatophytosis of nail; Pain in toe of right foot; Pain in toe of left foot; Corns and callosities; Metatarsalgia of both feet; Type II diabetes mellitus with peripheral circulatory disorder (CMS/HCC); Difficulty walking from Last 3 Months Immunizations Name Administration Dates Next Due Influenza Quadravalent, MDCK , 0.5ml, preservative free (Flucelvax) 6mo and older 02/26/2012 Influenza trivalent, 0.5mL ( Fluad) 65yo and older 03/03/2013 Influenza trivalent, 0.5mL, preservative free (Fluarix; FluLaval; Fluzone) ages 6mo and older (Afluria) 3 years and older 03/05/2016,03/06/2015,02/17/2011,2009 Pneumococcal conjugate 13 va lent (Prevnar 13, PCV13) 2mo and older 03/05/2016 Tdap Tetanus diptheria acell ular pertussis (Boostrix; Adacel) 7yo and older 10/23/2011 Social History Tobacco Use Types Packs/Day Years Used Date Smoking Tobacco: Never Smokeless Tobacco: Never Alcohol Use Standard Drinks/Week Comments No 0 (1 standard drink = 0.6 oz pur e alcohol) Sex and Gender Information Value Date Recorded Sex Assigned at Not on file Gender Identity Not on file Sexual Orientation Not on file Job Start Date Occupation Industry Not on file Not on file Not on file Obstetrics History Last Filed Vital Signs Vital Sign Reading Time Taken Comments Blood Pressure - - Pulse - - Temperature - - Respiratory Rate - - Oxygen Saturation - - Inhaled Oxygen Concentration - - Weight 111 kg (245 lb) 05/09/2024 8:14 AM EST Height 167.6 cm (5' 6 ) 05/09/2024 8:14 AM EST Body Mass Index 39.54 05/09/2024 8:14 AM EST Plan of Treatment Upcoming Encounters Date Type Department Care Team (Late st Contact Info) Description 07/10/2024 8:45 AM EST Office Visit Orthopedic Surgery - [place] [address] [phone] Vinny Yates, DPHi [address] [address] Health Maintenance Due Date Last Done Comments Diabetes: Annual Foot Exam 1950 Diabetes: Annual Retina Eye Exam 1950 Zoster Vaccines (1 of 2) 1988 RSV Immunization Patients 60+ Years Old (1 - 1-dose 75+ series) 2013 Pneumococcal Vaccine: 65+ Years (2 of 2 - PPSV23 or PCV20) 04/30/2016 03/05/2016, 03/05/2016, 03/05/2010 Diabetes: Annual GFR (Glomerular Filtration Rate) 10/05/2019 10/04/2018 COVID-19 Vaccine (2 - Pfizer risk series) 07/29/2020 07/08/2020 Cholesterol Screening (Lipid Panel) 05/03/2022 Depression Screening 05/03/2022 Falls Risk Assessment 05/03/2022 Medicare Annual Wellness Visit 05/03/2022 Osteoporosis Screening (Bone Density Screening) 05/03/2022 Social Influencers of Health Screening 05/03/2022 Diabetes: Annual Urine Albumin-Creatinine Ratio (uACR) 05/15/2022 Diabetes: Blood Sugar Control Test (HGBA1C) 05/15/2022 Hypertension/CHF/CAD Annual BMP Blood Test 05/15/2022 10/04/2018 DTaP,Tdap,and Td Vaccines (3 - Td or Tdap) 02/08/2033 02/08/2023, 10/23/2011, 10/23/2011 Influenza Vaccine Completed 03/12/2024, , 03/25/2022, Additional history exists HIB Vaccines Aged Out No longer eligi ble based on patient's age to complete this topic HPV Vaccines Aged Out No longer eligi ble based on patient's age to complete this topic Hepatitis A Vaccines Aged Out No long er eligible based on patient's age to complete this topic Hepatitis B Vaccines Aged Out No long er eligible based on patient's age to complete this topic IPV Vaccines Aged Out No longer eligi ble based on patient's age to complete this topic MMR Vaccines Aged Out No longer eligi ble based on patient's age to complete this topic Meningococcal ACWY Vaccine Aged Out N o longer eligible based on patient's age to complete this topic RSV Immunization Patients Under 20 months Aged Out No longer eligible based on patient's age to complete this topic Varicella Vaccines Aged Out No longer eligible based on patient's age to complete this topic Procedures Procedure Name Priority Date/Time Associated Diagnosis Comments ANNUAL BMP BLOOD TEST Routine 10/04/2018 from Last 3 Months or Most Recently Relevant to Health Maintenance Results * Annual BMP Blood Test (10/04/2018) Annual BMP Blood Test Abstracted Historical Provider MD AMANDEEP Gonzalez from Last 3 Months or Most Recently Relevant to Health Maintenance Care Teams Swimming Pool Servicer Relationship Specialty Start Date End Date Salud Lester MD [address] [facility] [place] [address] PCP - General Internal Medicine 03/29/18
--- OUTSIDE RECORDS SUMMARY | 2024-06-26 13:19 | XMS_ITS | Encounter Summary ---
Author Organization [facility] Address [address] [place] [address] Care Team Providers Care Food Critic Name Role Phone Salud Lestre MD Primary Care Provider Arnulfo Mccollum MD Unavailable [phone] Laura Palma NP Unavailable [phone] Encounter Details Date Type Department Care Team Description 11/06/2019 Telephone Gastroenterology - [place] [address] [facility] [address] [place] [address] Hoa Sewell DScPAS Social History Tobacco Use Types Packs/Day Years Used Date Smoking Tobacco: Never Smokeless Tobacco: Never Alcohol Use Standard Drinks/Week Comments No 0 (1 standard drink = 0.6 oz pur e alcohol) Sex Assigned at Date Recorded Not on file documented as of this encounter Miscellaneous Notes * Telephone Encounter - Hoa Sewell PA-C - 11/06/2019 2:03 PM EDT thanks documented in this encounter Plan of Treatment Not on file documented as of this encounter Visit Diagnoses Not on filedocumented in this encounter Care Teams Food Critic Relationship Specialty Start Date End Date Salud Lester MD PCP - General Internal Medicine 03/29/18 Arnulfo Wilks MD [address] [place] [address] Specialist Cardiovascular Disease 08/22/20 Laura Palma INVENTORY TRANSCRIBER [address] [place] [address] Cardiology 08/22/20 documented as of this encounter
--- OUTSIDE RECORDS SUMMARY | 2024-06-26 13:19 | XMS_ITS | Encounter Summary ---
Author Organization [facility] Address [address] [place] [address] Care Team Providers Care P D Driver Name Role Phone Salud Lester MD Primary Care Provider Geoffreya Arnulfo Sheldon MD Unavailable [phone] Laura Palma NP Unavailable [phone] Encounter Details Date Type Department Care Team Description 10/16/2020 [facility] Medical Records [address] [place] [address] Abstract, Provider Social History Tobacco Use Types [...] Name Priority Date/Time Associated Diagnosis Comments OUTSIDE LAB Routine 10/16/2020 documented in this encounter Results * OUTSIDE LAB (10/16/2020) Provider Abstract LAB documented in this encounter Visit Diagnoses Not on filedocumented in this encounter Care Teams P D Driver Relationship Specialty Start Date End Date Salud Lester MD PCP - General Internal Medicine 03/29/18 Arnulfo Wilks MD [address] [place] [address] Specialist Cardiovascular Disease 08/22/20 Laura Palma NP [address] [place] [address] Cardiology 08/22/20 documented as of this encounter
--- OUTSIDE RECORDS SUMMARY | 2024-06-26 13:19 | XMS_ITS ---
Author Organization [facility] Address [address] [place] [address] Care Team Providers Care Insemination Worker Name Role Phone Salud Lester MD Primary Care Provider Unavaila Arsh Rincon Unavailable [phone] REASON FOR VISIT cx appt 12/20/23 Encounters Encounter Location Date Provider Diagnosis [facility] [address] [place] [address] 11/12/2023 [facility] Plan Of Treatment No Information Progress Notes * Camille ANDRADEDOB:1940 (82 yo F)Acc No.[id number]:11/12/2023 Patient:?Camille Andrade :1940???Age:82 Y???Sex:Female Address: [place] [address] * true * Date:? Generated for Adalbertoi kip/Reynaldo/eTransmitting on:?06/26/2024 01:19 PM EST
--- OUTSIDE RECORDS SUMMARY | 2024-06-26 13:19 | XMS_ITS | Encounter Summary ---
Author Organization [facility] Address [address] [place] [address] Care Team Providers Care Guest Services Name Role Phone Salud Lester MD Primary Care Provider Arnulfo Mccollum MD Unavailable [phone] Laura Palma NP Unavailable [phone] Reason for Visit * Reason Onset Date Comments Hospital Procedure 10/16/2020 Sotalol Load/ RAUL/Afib Ablation Encounter Details Date Type Department Care Team Description 10/16/2020 Telephone Cardio PVC POC [address] [facility] [address] [place] [address] Daina Chaney MD [address] [facility] [address] [place], [place] [phone] Hospital Procedure (Sotalol Load/RAUL/Afib Ablation) Social History Tobacco Use Types Packs/Day Years Used Date Smoking Tobacco: Never Smokeless Tobacco: Never Alcohol Use Standard Drinks/Week Comments No 0 (1 standard drink = 0.6 oz pur e alcohol) Sex Assigned at Date Recorded Not on file documented as of this encounter Miscellaneous Notes * Telephone Encounter - Jerome Tsai C.M.A. - 10/16/2020 2:28 PM EDT Daughter called back and notified that they changed they chnaged their mind and not go through the procedure. Ansley is also notified to cx all bookings and orders * Telephone Encounter - Jerome Tsai C.M.A. - 10/16/2020 1:35 PM EDT LVMTCB to patients daughter Soo to talk about details and date. Spoke with [place] and KIM. Okayedcase per SR he would like the sotalol load on a Wednesday 6.. and have personal finance instructor doctor monitor the patient over the weekend (which SR will talk to) that Wednesday 6.. SR will follow with RAUL followingwith an Afib Ablation (will be considered inpatient) Deandra from surgical booking is aware to have an eye on the case from when the [facility] books the load. Spoke with [facility] and made sure that they have a bed that Wednesday for patient. Gave them info/ demographics on patient. Faxed to [place] so she can put orders in for the case. Per SR he will follow case after outpatients cath are done. documented in this encounter Plan of Treatment Not on file documented as of this encounter Visit Diagnoses Not on filedocumented in this encounter Care Teams Guest Services Relationship Specialty Start Date End Date Salud Lesetr MD PCP - General Internal Medicine 03/29/18 Arnulfo Wilks MD [address] [place] [address] Specialist Cardiovascular Disease 08/22/20 Laura Palma NP [address] [place] [address] Cardiology 08/22/20 documented as of this encounter
--- OUTSIDE RECORDS SUMMARY | 2024-06-26 13:19 | XMS_ITS | Patient Health Record ---
Author Organization [facility] Address [address] [place] [address] Care Team Providers Care Weekday Babysitter Name Role Phone Salud Lester MD Primary Care Provider Unavaila Arsh Rincon Unavailable [phone] Reason For Referral No Information Encounters Encounter Location Date Provider Diagnosis [facility] [address] [place] [address] 11/12/2023 [facility] Plan Of Treatment No Information Insurance Providers Payer Name Payer Address Payer Phone Subscriber Number Group Number Insured Name Patient Relationship to Insured Coverage Start Date Coverage End Date Medicare [employer] [address] [place] [address] [id number] Camille Andrade Self - patient is the insured
--- OUTSIDE RECORDS SUMMARY | 2024-06-26 13:19 | XMS_ITS | Encounter Summary ---
Author Organization [facility] Address [address] [place] [address] Care Team Providers Care Machinist Name Role Phone Salud Lester MD Primary Care Provider Arnulfo Mccollum MD Unavailable [phone] Laura Palma NP Unavailable [phone] Encounter Details Date Type Department Care Team Description 03/24/2019 Orders Only Medical Records [address] [place] [address] Abstract, Provider Epigastric abdominal pain; Chronic nausea; Gastroesophageal reflux disease without esophagitis Social History Tobacco Use Types Packs/Day Years Used Date Smoking Tobacco: Never Smokeless Tobacco: Never Alcohol Use Standard Drinks/Week Comments No 0 (1 standard drink = 0.6 oz pur e alcohol) Sex Assigned at Date Recorded Not on file documented as of this encounter Plan of Treatment Not on file documented as of this encounter Procedures Procedure Name Priority Date/Time Associated Diagnosis Comments CT ABD & PELVIS W/CONTRAST Routine 03/24/2019 Epigastric abdominal pain Chronic nausea Gastroesophageal reflux disease without esophagitis documented in this encounter Results * CT ABD & PELVIS W/CONTRAST (03/24/2019) Hoa Sewell DScPAS CT SCANS documented in this encounter Visit Diagnoses Diagnosis Epigastric abdominal pain Abdominal pain, epigastric Chronic nausea Nausea alone Gastroesophageal reflux disease without esophagitis Esophageal reflux documented in this encounter Care Teams Machinist Relationship Specialty Start Date End Date Salud Lester MD PCP - General Internal Medicine 03/29/18 Arnulfo Wilks MD [address] [place] [address] [place] [id number] Specialist Cardiovascular Disease 08/22/20 Laura Palma NP [address] [place] [address] Cardiology 08/22/20 documented as of this encounter
--- OUTSIDE RECORDS SUMMARY | 2024-06-26 13:19 | XMS_ITS | Encounter Summary ---
Author Organization [facility] Address [address] [place] [address] Care Team Providers Care Consumer Science Teacher Name Role Phone Salud Lester MD Primary Care Provider Arnulfo Mccollum MD Unavailable [phone] Laura Palma NP Unavailable [phone] Reason for Visit * Reason Onset Date Comments refill request 12/27/2019 Encounter Details Date Type Department Care Team Description 12/27/2019 Refill Gastroenterology - [address] [place] [phone] Hoa Sewell DScPAS refill request Social History Tobacco Use Types Packs/Day Years Used Date Smoking Tobacco: Never Smokeless Tobacco: Never Alcohol Use Standard Drinks/Week Comments No 0 (1 standard drink = 0.6 oz pur e alcohol) Sex Assigned at Date Recorded Not on file documented as of this encounter Miscellaneous Notes * Telephone Encounter - Johana Leon M.A. - 12/27/2019 12:45 PM EDT VLADIMIR 12/13/2019 01/17/2020 30 day supply * Telephone Encounter - Gerri Nam - 12/27/2019 12:00 PM EDT VLADIMIR 12/13/2019 01/17/2020 30 day supply. documented in this encounter Plan of Treatment Not on file documented as of this encounter Visit Diagnoses Not on filedocumented in this encounter Care Teams Consumer Science Teacher Relationship Specialty Start Date End Date Salud Lester MD PCP - General Internal Medicine 03/29/18 Arnulfo Wilks MD [address] [place] [address] Specialist Cardiovascular Disease 08/22/20 Laura Palma NP [address] [place] [id number] Cardiology 08/22/20 documented as of this encounter
== END 2024-06-26 09:52 | disposition home or self-care (01) ==
PROVIDERS: PCP Internal Medicine; Visit Provider Internal Medicine
DX: I48.91 Unspecified atrial fibrillation (principal); J44.1 Chronic obstructive pulmonary disease with (acute) exacerbation; M05.79 Rheumatoid arthritis with rheumatoid factor of multiple sites without organ or systems involvement; E11.22 Type 2 diabetes mellitus with diabetic chronic kidney disease; I50.30 Unspecified diastolic (congestive) heart failure; N18.30 Chronic kidney disease, stage 3 unspecified; E03.9 Hypothyroidism, unspecified

== ENCOUNTER → 2024-06-26 08:59 | Outpatient (BNVA) | payer MEDICARE, SELFPAY | PROVIDERS: PCP Internal Medicine; Visit Provider Internal Medicine | DX: I48.91 Unspecified atrial fibrillation (principal); J44.1 Chronic obstructive pulmonary disease with (acute) exacerbation; M05.79 Rheumatoid arthritis with rheumatoid factor of multiple sites without organ or systems involvement; E11.9 Type 2 diabetes mellitus without complications; I50.30 Unspecified diastolic (congestive) heart failure; N18.30 Chronic kidney disease, stage 3 unspecified; E03.9 Hypothyroidism, unspecified | CPT/HCPCS: 96127; 99212 ==

== ENCOUNTER → 2024-07-03 07:59 | Outpatient (BNV) | payer MEDICARE, MEDICAID, SELFPAY | PROVIDERS: PCP Internal Medicine; Visit Provider Internal Medicine Cardiovascular Disease | DX: I48.91 Unspecified atrial fibrillation (principal); I49.3 Ventricular premature depolarization | CPT/HCPCS: 93227 ==

== ENCOUNTER 2024-07-11 13:33 | Outpatient (AMB) | payer MEDICARE, MEDICAID, SELFPAY ==
[2024-07-11 13:41] VITALS: BP 110/70; PULSE 67; RESP 18; TEMP 37.4; O2SAT 95; BMI 38.2
--- NOTE | 2024-07-11 13:41 | MHC.PC.OV ---
Vital Signs 07/11/24 13:41 Height 5 ft 6 in Weight 237 lb BMI 38.2 BP 110/70 Blood Pressure Location Lt brachial Position Sitting Respiration 18 Pulse 67 Pulse Source Pulse Oximeter Temp 99.3 F Temp Source Oral Pulse Oximetry (%) 95 Oxygen Delivery Method Room Air Intake Visit Reasons: Cough congestion Intake Note: Pt is here today for a sick visit. Pt c/o cough, congestion chest congestion sob since Wednesday. Allergies atorvastatin [From Lipitor] Allergy (Unknown, Verified 07/11/24 13:53) Leg cramps ciprofloxacin [From Cipro] Allergy (Unknown, Verified 07/11/24 13:53) Stomach Upset ezetimibe [From Zetia] Allergy (Unknown, Verified 07/11/24 13:53) leg cramps hydrochlorothiazide [From Avalide] Allergy (Unknown, Verified 07/11/24 13:53) Stomach Upset infliximab [From Remicade] Allergy (Unknown, Verified 07/11/24 13:53) Infection irbesartan [From Avalide] Allergy (Unknown, Verified 07/11/24 13:53) Stomach Upset metformin Allergy (Unknown, Verified 07/11/24 13:53) nausea moxifloxacin [From Avelox] Allergy (Unknown, Verified 07/11/24 13:53) Stomach Upset nifedipine Allergy (Unknown, Verified 07/11/24 13:53) upset stomach pravastatin Allergy (Unknown, Verified 07/11/24 13:53) stomach upset rosuvastatin [From Crestor] Allergy (Unknown, Verified 07/11/24 13:53) Leg cramps terazosin [From Hytrin] Allergy (Unknown, Verified 07/11/24 13:53) Stomach Upset valsartan [From Diovan] Allergy (Unknown, Verified 07/11/24 13:53) Stomach Upset warfarin [WARFARIN] Allergy (Unknown, Verified 07/11/24 13:53) Anaphylaxis Medication List - Last Reconciled 07/11/24 by Salud Lester MD acetaminophen 1,000 mg PO BID albuterol sulfate 90 mcg/actuation 2 puffs inhalation Q4H PRN albuterol sulfate 0.63 mg (3 mL) inhalation Q4-6H PRN apixaban (Eliquis) 5 mg PO BID blood sugar diagnostic As directed blood sugar diagnostic (FreeStyle Test strips) check glucose once a day blood-glucose meter As directed compr.stocking,knee,long,x-lrg 10-20 mmHg diltiazem HCl ER 240 mg PO DAILY estradiol 0.01%(0.1mg/gram) (Estrace) pea size to urethra openning vaginally QD; ezetimibe (Zetia) 10 mg PO DAILY Farxiga (dapagliflozin propanediol) 5 mg PO DAILY NS fluticasone furoate-vilanterol 100-25 mcg/dose (Breo Ellipta) 1 inh inhalation DAILY folic acid 1 mg PO DAILY furosemide 40 mg PO BID gabapentin 300 mg PO BID hospital bed As directed incontinence pad, liner, disp As directed levothyroxine 50 mcg PO QAM lidocaine 5% (Lidoderm) 1 patch topical DAILY lisinopril 5 mg PO BID meclizine 25 mg PO DAILY PRN miscellaneous medical supply 1 ea miscellaneous .QD mupirocin 2% 1 appl topical TID pantoprazole 40 mg PO DAILY@0600 potassium chloride ER 20 mEq (2 x 10 mEq) PO DAILY sertraline 50 mg PO DAILY Shower Chair As directed tiotropium bromide (Spiriva with HandiHaler) 1 cap inhalation DAILY tramadol 50 mg PO TID PRN Tobacco use date assessed: 07/11/24 Dental Screening Dental Screen Date: 06/26/24 HPI Cough congestion HPI Details Patient presents complaining of 5 days of productive cough increasing shortness of breath wheezing low-grade fever and body aches. Patient denies pleurisy chest pain palpitations nausea vomiting GI or complaints. She has been using Breo and Spiriva regularly and albuterol as needed [facility] Medical History Ankle pain, right Hypokalemia LILY (obstructive sleep apnea) (HFpEF) heart failure with preserved ejection fraction Depression Physical deconditioning Cervical radiculopathy due to degenerative joint disease of spine Venous insufficiency Recurrent pulmonary embolism Diabetes Hyperlipidemia Hemorrhoids Obesity Rheumatoid arthritis COPD (chronic obstructive pulmonary disease) Atrial fibrillation Hypertension Surgical History History of carpal tunnel syndrome History of surgery Family History Father No problems noted. Mother No problems noted. Social History Household Members: Family Housing: House Do you presently have visiting nurse or other home services: No Alcohol intake: never Patient Tobacco Use Status: Never used Tobacco e-Cigarette/Vaping Use: Never Used service: No Current occupational status: retired Cognitive needs: No Hearing needs: No Vision needs: Yes Questionnaire PHQ-9 Over the last 2 weeks, how often have you been bothered by any of the following problems? 1. Little interest or pleasure in doing things: not at all 2. Feeling down, depressed, or hopeless: not at all 3. Trouble falling or staying asleep, or sleeping too much: several days 4. Feeling tired or having little energy: several days 5. Poor appetite or overeating: not at all 6. Feeling bad about yourself - or that you are a failure or have let yourself or your family down: not at all 7. Trouble concentrating on things, such as reading the newspaper or watching television: not at all 8. Moving or speaking so slowly that other people could have noticed. Or the opposite - being so fidgety or restless that you have been moving around a lot more than usual: not at all 9. Thoughts that you would be better off or of hurting yourself in some way: not at all Total score: 2 Depression Screening Interpretation: Negative Depression Screening Done: Yes 60480 - PHQ-9 Billing: Yes Source: Developed by Drs. Gume Adam, Sandhya Chopra, Major Headley and colleagues, with an educational kimberlee from [employer]. Thrive Questionnaire Date Thrive assessed: 07/10/24 I am a: Parent/Caregiver What is your living situation today?: I have a steady place to live Within the past 12 months, did the food you bought not last and you didn't have the money to get more?: Never true Within the past 12 months, did you worry whether your food would run out before you got money to buy more?: Never true Do you have trouble paying for medicines?: No Do you have trouble getting transportation to medical appointments?: No Do you have trouble paying your heating and electricity bill?: No Do you have trouble taking care of your child, family member or friend?: No Do you have trouble with day-to-day activities such as bathing, preparing meals, shopping, managing finances, etc.?: Yes Are you currently unemployed and looking for a job?: No Are you interested in more education?: No Please select the resources that you would like help with: None Currently or been in a relationship where the following occur: No concerns reported THRIVE Score: 0 AUDIT C Alcohol Use Questionnaire (AUDIT-C) 1. How often do you have a drink containing alcohol?: Never Total Score: 0 OTILIO-7 AMB Questionnaire OTILIO-7 Date OTILIO - 7 assessed: 06/26/24 Feeling nervous, anxious, or on edge: 0 = Not at all Not being able to stop or control worryin = Not at all Worrying too much about different things: 0 = Not at all Trouble relaxin = Not at all Being so restless that it is hard to sit still: 0 = Not at all Becoming easily annoyed or irritable: 0 = Not at all Feeling afraid as if something awful might happen: 0 = Not at all Total OTILIO-7 score (0-4 normal; 5-9 mild; 10-14 moderate; 15-21 severe): 0 Source: Developed by Drs. Gume Adam, Sandhya Chopra, Major Headley and colleagues, with an educational kimberlee from [employer]. Review of Systems Const All systems reviewed & are unremarkable except as noted in HPI and below Eyes Reports no additional complaints ENT Reports no additional complaints Card Reports no additional complaints Resp Reports no additional complaints GI Reports no additional complaints Reports no additional complaints Physical exam (Primary Care) Vital Signs: Last Vital Signs Temp 99.3 F 07/11/24 13:41 Pulse 67 07/11/24 13:41 Resp 18 07/11/24 13:41 BP 110/70 07/11/24 13:41 Pulse Ox 95 07/11/24 13:41 Oxygen Delivery Method Room Air 07/11/24 13:41 BMI result Body Mass Index 38.2 Tobacco/Smoking Status: Tobacco use Status Tobacco use date assessed 07/11/24 07/11/24 13:54 Patient Tobacco Use Status Never used Tobacco 07/11/24 13:41 e-Cigarette/Vaping Use Never Used 07/11/24 13:41 PHQ-9: PHQ-9 Score PHQ-9: Total score 2 07/11/24 14:51 Depression Screening Interpretation: Negative Thrive Assessment: Date of Thrive Assessment Date Thrive assessed 07/10/24 07/11/24 13:41 Currently or been in a relationship where the following occur: No concerns reported Const General: no acute distress HENMT Head: Yes normal to inspection Eyes General: appearance normal, both eyes and all related structures Resp Effort & Inspection: audible wheezes Auscultation: wheezes and diminished lung sounds Cardio Rhythm: regular rhythm Heart sounds: S1 normal heart sound present and S2 normal heart sound present GI Palpation (GI): Soft to palpation Office Procedures Nebulizer Treatment Nebulizer Treatment [id number] RX initial, or Nebulizer Subsequent Treatment Office Meds ipratropium 0.5 mg-albuterol 3 mg (2.5 mg base)/3 mL nebulization soln Performing Provider: Salud Lester MD Performing Location[place] [facility] Administered by: Melodie Haskins RN on 07/11/24 14:50 Dose Route Admin Location Dispensed Lot Number Expiration Date [facility] Sales Associate Key Holder 3 mL inhalation 3 mL [id number] 07/28/25 45360-729-16 P Coding Level of Care Code Est Pt Level 3 (44469) Diagnoses COPD (chronic obstructive pulmonary disease) J44.1 COPD type: COPD with acute exacerbation (HFpEF) heart failure with preserved ejection fraction I50.30 CPT Codes Nebulizer Treatment - Nebulizer Treatment, initial or subsequent: [id number] RX initial, or Nebulizer Subsequent Treatment ([id number]) Additional Codes PHQ-9 - 08334 - PHQ-9 Billing: Yes ([id number]) Assessment & Plan Assessment & Plan (1) COPD (chronic obstructive pulmonary disease): Code(s): J44.9 - Chronic obstructive pulmonary disease, unspecified Category: Medical Qualifiers: COPD type: COPD with acute exacerbation Qualified Code(s): J44.1 - Chronic obstructive pulmonary disease with (acute) exacerbation Plan: For COPD exacerbation Z-Raad and prednisone taper as prescribed patient was advised to continue Breo Ellipta and Spiriva inhalers and use albuterol as needed (2) (HFpEF) heart failure with preserved ejection fraction: Comment: Echo 01/2021, severely increased left ventricle thickness, hyperdynamic LVEF, mild MS, myocardial perfusion nl 04/20, Echo 09/21 unchanged Code(s): I50.30 - Unspecified diastolic (congestive) heart failure Category: Medical Plan: Continue current medications Orders: Orders AMB Nebulizer Treatment Today J44.1 - Chronic obstructive pulmonary disease with (acute) exacerbation Medications: New azithromycin For 250 mg dose pack: take 500 mg today (day 1), then 250 mg for 4 days (days 2-5) PO 6 tabs 0RF prednisone 4 tablets p.o. q.d. for 3 days then 3 tablets p.o. q.d. for 3 days then 2 tablets p.o. q.d. for 3 days then 1 tablet p.o. q.d. for 3 days 30 tabs 0RF Refilled albuterol sulfate 0.63 mg (3 mL) inhalation Q4-6H PRN 90 mL 3RF shortness of breath or wheezing J44.9 - Chronic obstructive pulmonary disease, unspecified
== END 2024-07-11 15:24 | disposition home or self-care (01) ==
PROVIDERS: PCP Internal Medicine; Visit Provider Internal Medicine
DX: J44.1 Chronic obstructive pulmonary disease with (acute) exacerbation (principal); I50.30 Unspecified diastolic (congestive) heart failure

== ENCOUNTER → 2024-07-11 13:33 | Outpatient (BNVA) | payer MEDICARE, MEDICAID, SELFPAY | PROVIDERS: PCP Internal Medicine; Visit Provider Internal Medicine | DX: J44.1 Chronic obstructive pulmonary disease with (acute) exacerbation (principal); I50.30 Unspecified diastolic (congestive) heart failure | CPT/HCPCS: 94640; 96127; 99212 ==

== ENCOUNTER 2024-08-11 11:38 | Outpatient (AMB) | payer MEDICARE, MEDICAID, SELFPAY ==
[2024-08-11 11:38] VITALS: BP 124/76; PULSE 90; RESP 20; TEMP 37.2; O2SAT 95; BMI 37.9
--- NOTE | 2024-08-11 11:38 | A.OFFVIS_ITS ---
Intake Vital Signs 08/11/24 11:38 Height 5 ft 6 in Weight 235 lb BMI 37.9 BP 124/76 Blood Pressure Location Rt brachial Position Sitting Respiration 20 Pulse 90 Pulse Source Pulse Oximeter Temp 99.0 F Temp Source Oral Pulse Oximetry (%) 95 Oxygen Delivery Method Room Air Intake Visit Reasons: SWV G0439 Allergies atorvastatin [From Lipitor] Allergy (Unknown, Verified 08/11/24 11:39) Leg cramps ciprofloxacin [From Cipro] Allergy (Unknown, Verified 08/11/24 11:39) Stomach Upset ezetimibe [From Zetia] Allergy (Unknown, Verified 08/11/24 11:39) leg cramps hydrochlorothiazide [From Avalide] Allergy (Unknown, Verified 08/11/24 11:39) Stomach Upset infliximab [From Remicade] Allergy (Unknown, Verified 08/11/24 11:39) Infection irbesartan [From Avalide] Allergy (Unknown, Verified 08/11/24 11:39) Stomach Upset metformin Allergy (Unknown, Verified 08/11/24 11:39) nausea moxifloxacin [From Avelox] Allergy (Unknown, Verified 08/11/24 11:39) Stomach Upset nifedipine Allergy (Unknown, Verified 08/11/24 11:39) upset stomach pravastatin Allergy (Unknown, Verified 08/11/24 11:39) stomach upset rosuvastatin [From Crestor] Allergy (Unknown, Verified 08/11/24 11:39) Leg cramps terazosin [From Hytrin] Allergy (Unknown, Verified 08/11/24 11:39) Stomach Upset valsartan [From Diovan] Allergy (Unknown, Verified 08/11/24 11:39) Stomach Upset warfarin [WARFARIN] Allergy (Unknown, Verified 08/11/24 11:39) Anaphylaxis HPI SWV G0439 HPI Details Initiated the conversation about Advanced Directives. Advanced Directives help? patients prepare for current and future decisions about their medical treatment? and place of care. Discussed with patient that it is a process where a patients? current condition and prognosis are reviewed, their wishes for information? regarding their illness are elicited, and likely medical dilemmas are presented? and options discussed. The form can be amended as needed, reviewed yearly and? make changes as needed IPPE/AWV ? year old presents? for her ? Annual? Wellness Visit, initial visit.? Medical / Social History Reviewed? Past Medical History ?Yes? . ? [place]? of Care / Care Team list updated ?Yes . ? Surgical/Hospitalization? History ?Yes . ? Current Medications? (including OTC and supplements) ?Yes . ? Family History ?Yes? . ? Tobacco? Control form ?Yes . ? AUDIT-C (Alcohol use) form? ?Yes . ? Illicit drug use in Social? History ?Yes . ? Current diagnosis of? depression? ?No ? Appropriate PHQ2/PHQ9? completed ?Yes . ? Data entered by ?Medical? Pharmacy Account Director and reviewed by provider ? Fall Risk ? Fall? History? Have you had any falls with? injury in the past year? ?No . ? Have you had two or more? falls in the past year? ?No . ? Fall Risk Assessment: ?No? falls in the past year . ? HRA filled out by? the patient, reviewed by Provider and scanned. ? IPPE/AWV ? Balance? [place]? ?Yes . ? Tandem? walk ?Yes . ? Walk and? Turn ?Yes . ? Rise from? sit to stand ?Yes . ?Vision? Corrective? lens ?Yes ? Vision? screen ? Up-to-date, has an appointment [] for vision? screening and glaucoma screening ?Hearing? Whisper? test ?pass .? Initiated the conversation about Advanced Directives. Advanced Directives help? patients prepare for current and future decisions about their medical treatment? and place of care. Discussed with patient that it is a process where a patients? current condition and prognosis are reviewed, their wishes for information? regarding their illness are elicited, and likely medical dilemmas are presented? and options discussed. The form can be amended as needed, reviewed yearly and? make changes as needed Written? Plan?Completed. See Patient? Documents. [facility] Medical History Ankle pain, right Hypokalemia LILY (obstructive sleep apnea) (HFpEF) heart failure with preserved ejection fraction Depression Physical deconditioning Cervical radiculopathy due to degenerative joint disease of spine Venous insufficiency Recurrent pulmonary embolism Diabetes Hyperlipidemia Hemorrhoids Obesity Rheumatoid arthritis COPD (chronic obstructive pulmonary disease) Atrial fibrillation Hypertension Surgical History History of carpal tunnel syndrome History of surgery Family History Father No problems noted. Mother No problems noted. Social History Household Members: Family Housing: House Do you presently have visiting nurse or other home services: No Alcohol intake: never Patient Tobacco Use Status: Never used Tobacco e-Cigarette/Vaping Use: Never Used service: No Current occupational status: retired Cognitive needs: No Hearing needs: No Vision needs: Yes Questionnaire Medicare Wellness Checkup What is your age?: 80 or older What gender do you identify with?: female During the past 4 weeks, how much have you been bothered by emotional problems such as feeling anxious, depressed, irritable, sad or downhearted, and blue?: not at all During the past 4 weeks, has your physical & emotional health limited your social activities with family, friends, neighbors, or groups?: not at all During the past 4 weeks, how much bodily pain have you generally had?: moderate pain During the past 4 weeks, was someone available to help you if you needed & wanted help?: yes, as much as I wanted During the past 4 weeks, what was the hardest physical activity you could do for at least 2 minutes?: light Can you get to places out of walking distance without help? (For eg., can you travel alone on buses, taxis or drive your car?): Yes Can you go shopping for groceries or clothes without someone's help?: No Can you prepare your own meals?: Yes Can you do your housework without help?: No Because of any health problems, do you need the help of another person with your personal care needs such as eating, bathing, dressing or getting around the house?: Yes Can you handle your own money without help?: Yes During the past 4 weeks, how would you rate your health in general?: good During the past 4 weeks how have things been going for you?: good & bad parts about equal Are you having difficulties driving your car?: sometimes Do you always fasten your seat belt when you are in a car?: yes, usually During past 4 weeks, have you been bothered by the following: never: Sexual problems?, Trouble eating well?, Teeth or denture problems? and Problems using the telephone? and seldom: Falling or dizzy when standing up and Tiredness or fatigue? Have you fallen 2 or more times in the past year?: No Are you afraid of falling?: No Are you a smoker?: no During the past 4 weeks, how many drinks of wine, beer, or other alcoholic beverages did you have?: no alcohol at all Do you exercise for about 20 minutes 3 or more times a week?: no, I usually do not exercise this much Have you been given information to help with the following?: no: Hazards in your house that might hurt you? and no: Keeping track of your medications? How often do you have trouble taking medicines the way you have been told to take them?: I always take medicine as prescribed How confident are you that you can control & manage most of your health problems?: very confident What is your race?: White Mini Mental State Exam (MMSE) Orientation What is the (year) (season) (date) (day) (month)?: year, season, date, day and month Where are we (state) (county) (town or city) (hospital) (floor)?: state, county, town or city, hospital/clinic and floor Registration Name of 3 unrelated objects clearly and slowly, then ask patient to repeat all 3 of them. (1st repeat determines score. Make sure they can repeat all three): object 1, object 2 and object 3 Attention & Calculation (CHOOSE ONE) Spell WORLD backwards (DLROW): 5 letters Recall Ask patient to repeat the 3 items from question #3.: object 1, object 2 and object 3 Language Show patient a wristwatch & ask what it is. Repeat for pencil.: watch and pencil Ask the patient to repeat the phrase 'No ifs, ands, or buts' after you.: correct Ask the patient to 'take a piece of paper with their right hand' 'fold paper in half' 'place paper on floor': take paper in right hand, fold paper in half and p lace paper on floor Print the sentence 'CLOSE YOUR EYES' on a piece. If patient actually closes eyes then score.: followed written direction Give patient a blank piece of paper & ask to write a sentence. Score if it contains a noun & verb.: sentence contains subject and verb Score Score: 29 PHQ-9 Over the last 2 weeks, how often have you been bothered by any of the following problems? 1. Little interest or pleasure in doing things: not at all 2. Feeling down, depressed, or hopeless: not at all 3. Trouble falling or staying asleep, or sleeping too much: not at all 4. Feeling tired or having little energy: not at all 5. Poor appetite or overeating: not at all 6. Feeling bad about yourself - or that you are a failure or have let yourself or your family down: not at all 7. Trouble concentrating on things, such as reading the newspaper or watching television: not at all 8. Moving or speaking so slowly that other people could have noticed. Or the opposite - being so fidgety or restless that you have been moving around a lot more than usual: not at all 9. Thoughts that you would be better off or of hurting yourself in some way: not at all Total score: 0 Depression Screening Interpretation: Negative Depression Screening Done: Yes 07093 - PHQ-9 Billing: Yes Source: Developed by Drs. Gume Adam, Sandhya Chopra, Major Headley and colleagues, with an educational kimberlee from [employer]. Review of Systems Const All systems reviewed & are unremarkable except as noted in HPI and below Eyes Reports no additional complaints ENT Reports no additional complaints Card Reports no additional complaints Resp Reports no additional complaints GI Reports no additional complaints Reports no additional complaints Physical Exam Vital Signs: Last Vital Signs Temp 99.0 F 08/11/24 11:38 Pulse 90 08/11/24 11:38 Resp 20 08/11/24 11:38 BP 124/76 08/11/24 11:38 Pulse Ox 95 08/11/24 11:38 Oxygen Delivery Method Room Air 08/11/24 11:38 BMI result Body Mass Index 37.9 Const General: no acute distress HEENT Head: Yes normal to inspection Ears: hearing grossly normal bilaterally Neck Neck: Yes no lymphadenopathy and Yes supple Resp Effort & Inspection: normal respiratory effort Auscultation: crackles and diminished lung sounds Cardio Rhythm: regular rhythm Heart sounds: S1 normal heart sound present and S2 normal heart sound present GI Inspection: Yes normal to inspection Palpation (GI): Soft to palpation Percussion: Yes normal to percussion Auscultation: normal bowel sounds Extrem General: Yes no clubbing, cyanosis or edema Assessment & Plan Assessment & Plan (1) Hypertension: Comment: BP goal less than 130/80 Code(s): I10 - Essential (primary) hypertension Plan: Continue current medications (2) Atrial fibrillation: Comment: permanent Code(s): I48.91 - Unspecified atrial fibrillation Plan: Rate controlled on diltiazem anticoagulated on Eliquis (3) (HFpEF) heart failure with preserved ejection fraction: Comment: Echo 01/2021, severely increased left ventricle thickness, hyperdynamic LVEF, mild MS, myocardial perfusion nl 04/20, Echo 09/21 unchanged Code(s): I50.30 - Unspecified diastolic (congestive) heart failure Plan: Continue current medications (4) Hypothyroid: Code(s): E03.9 - Hypothyroidism, unspecified Plan: Continue levothyroxine (5) COPD (chronic obstructive pulmonary disease): Code(s): J44.9 - Chronic obstructive pulmonary disease, unspecified Qualifiers: COPD type: COPD with acute exacerbation Qualified Code(s): J44.1 - Chronic obstructive pulmonary disease with (acute) exacerbation Plan: Continue Breo and Spiriva (6) Rheumatoid arthritis: Comment: -ve RF-ve CCP deforming dx around 1999 gold salts. Not tolerated Methotrexate not tolerated Arava ineffective Hydroxychloroquine not tolerated Remicade for approx 3 months, left foot osteomyelitis SSZ around 2018 DC 10/2023 ineffective Minocycline 10/2023 At least partially effective Code(s): M06.9 - Rheumatoid arthritis, unspecified Qualifiers: Rheumatoid arthritis location: multiple sites Rheumatoid factor presence: with rheumatoid factor Qualified Code(s): M05.79 - Rheumatoid arthritis with rheumatoid factor of multiple sites without organ or systems involvement Plan: Follow-up with emergency services professional Orders: Orders Hemoglobin A1c 3 Months E03.9 - Hypothyroidism, unspecified, I10 - Essential (p rimary) hypertension, I48.91 - Unspecified atrial fibrillation, I50.30 - Unspecified diastolic (congestive) heart failure Lipid Panel 3 Months E03.9 - Hypothyroidism, unspecified, I10 - Essential (primary) hypertension, I48.91 - Unspecified atrial fibrillation, I50.30 - Unspecified diastolic (congestive) heart failure Complete Blood Count Auto Diff 3 Months E03.9 - Hypothyroidism, unspecified, I10 - Essential (primary) hypertension, I48.91 - Unspecified atrial fibrillation, I50.30 - Unspecified diastolic (congestive) heart failure Microalbumin, Random (w Creat) 3 Months E03.9 - Hypothyroidism, unspecified, I10 - Essential (primary) hypertension, I48.91 - Unspecified atrial fibrillation, I50.30 - Unspecified diastolic (congestive) heart failure Comprehensive [place]. Panel Fast 3 Months E03.9 - Hypothyroidism, unspecified, I10 - Essential (primary) hypertension, I48.91 - Unspecified atrial fibrillation, I50.30 - Unspecified diastolic (congestive) heart failure TSH reflex Free T4 3 Months E03.9 - Hypothyroidism, unspecified, I10 - Essential (primary) hypertension, I48.91 - Unspecified atrial fibrillation, I50.30 - Unspecified diastolic (congestive) heart failure Medications: Discontinued estradiol 0.01%(0.1mg/gram) (Estrace) Discontinued Reason: Doctor's Order pea size to urethra openning vaginally QD; 42.5 grams 1RF Quality Reporting (2019) Depression/Bipolar (159/160/161/177) PHQ-9: Total score: 0 Coding Level of Care Code Medicare Subsequent (G0439) Diagnoses Hypertension I10 Atrial fibrillation I48.91 (HFpEF) heart failure with preserved ejection fraction I50.30 Hypothyroid E03.9 COPD (chronic obstructive pulmonary disease) J44.1 COPD type: COPD with acute exacerbation Rheumatoid arthritis involving multiple sites with positive rheumatoid factor M05.79 Rheumatoid arthritis location: multiple sites Rheumatoid factor presence: with rheumatoid factor CPT Codes Advance Care Planning - Advance Care Planning discussion: On file, no changes ([id number]) Advance Care Planning - Time spent: 1-15 minutes, on File ([id number]) Additional Codes PHQ-9 - 28625 - PHQ-9 Billing: Yes ([id number]) Advance Care Planning Advance Care Planning discussion: On file, no changes Forms completed: Health Care Proxy Time spent: 1-15 minutes, on File Did not discuss due to Cultural/Spiritual beliefs: Yes
--- OUTSIDE RECORDS SUMMARY | 2024-08-11 13:27 | XMS_ITS | Encounter Summary ---
Author Organization [facility] Address [address] [place] [address] Care Team Providers Care Medical Fee Clerk Name Role Phone Salud Lester MD Primary Care Provider Arnulfo Mccollum MD Unavailable [phone] Laura Palma NP Unavailable [phone] Reason for Visit * Reason Onset Date Comments Hospital Procedure 10/16/2020 Sotalol Load/ RAUL/Afib Ablation Encounter Details Date Type Department Care Team Description 10/16/2020 Telephone Cardio PVC POC 154 [address] [facility] [address] [place] [address] Daina Chaney MD [address] [facility] [address] [place], [place] [phone] Hospital Procedure (Sotalol Load/RAUL/Afib Ablation) Social History [...] load on a Wednesday 6.. and have communications engineering technician doctor monitor the patient over the weekend [...] on filedocumented in this encounter Care Teams Medical Fee Clerk Relationship Specialty Start Date End Date Salud Lester MD PCP - General Internal Medicine 03/29/18 Arnulfo Wilks MD [address] [place] [address] Specialist Cardiovascular Disease 08/22/20 Laura Palma NP [address] [place] [address] Cardiology 08/22/20 documented as of this encounter
--- OUTSIDE RECORDS SUMMARY | 2024-08-11 13:27 | XMS_ITS | Encounter Summary ---
Author Organization [facility] Address [address] [facility] [place] [address] Care Team Providers Care Locker Attendant Name Role Phone Salud Lester MD Primary Care Provider Arnulfo Mccollum MD Unavailable [phone] Laura Palma NP Unavailable + [phone] Encounter Details Date Type Department Care Team Description 11/06/2019 Telephone Gastroenterology - [place] [address] [facility] [address] [place] [address] Hoa Sewell DScPAS Social History [...] on filedocumented in this encounter Care Teams Locker Attendant Relationship Specialty Start Date End Date Salud Lester MD PCP - General Internal Medicine 03/29/18 Arnulfo Wilks MD [address] [place] [address] Specialist Cardiovascular Disease 08/22/20 Laura Palma CHIEF ENGINEER'S HELPER [address] [place] [address] Cardiology 08/22/20 documented as of this encounter
--- OUTSIDE RECORDS SUMMARY | 2024-08-11 13:27 | XMS_ITS | Encounter Summary ---
Author Organization [facility] Address [address] [place] [address] Care Team Providers Care Research Associate Quality Control Qc Name Role Phone Salud Lester MD Primary Care Provider Geoffrey Arnulfo Sheldon MD Unavailable [phone] Laura Palma NP Unavailable + [phone] Encounter Details Date Type Department Care Team Description 10/15/2020 Software Development Engineer Report Medical Records [address] [place] [address] Abstract, Provider Social History Tobacco Use Types [...] on filedocumented in this encounter Care Teams Research Associate Quality Control Qc Relationship Specialty Start Date End Date Salud Lester MD PCP - General Internal Medicine 03/29/18 Arnulfo Wilks MD [address] [place] [address] [id number] Specialist Cardiovascular Disease 08/22/20 Laura Palma NP [address] [place] [address] Cardiology 08/22/20 documented as of this encounter
--- OUTSIDE RECORDS SUMMARY | 2024-08-11 13:27 | XMS_ITS ---
Author Organization [facility] Address [address] [place] [id number] Care Team Providers Care Wood Pole Treater Name Role Phone Trevon PINEDA, Salud Primary Care Provider Unavaila Arsh Rincon Unavailable [phone] Encounters Encounter [facility] Date [facility] [address] [place] [id number] 12/20/2023 Arsh West Plan Of Treatment No Information Progress Notes * Camille GUZMANDOB:1940 (83 yo F)Acc No.[id number]:12/20/2023 Progress Notes Patient:?TIMKELLENNenoCamille Provider:?Arsh West DPM :1940???Age:82 Y???Sex:Female D ate:12/20/2023 Address: [id number] Pcp:Salud Lester MD Subjective: * Chief Complaints: [...] West DPM Date:?2023 Generated for Linda shin/Reynaldo/eTransmitting on:?08/11/2024 01:27 PM EDT
--- OUTSIDE RECORDS SUMMARY | 2024-08-11 13:27 | XMS_ITS | Encounter Summary ---
Author Organization [facility] Address [address] [place] [address] Care Team Providers Care Sales And Training Specialist Name Role Phone Salud Lester MD Primary Care Provider Geoffrey Arnulfo Sheldon MD Unavailable [phone] Laura Palma NP Unavailable [phone] Encounter Details Date Type Department Care Team Description 05/04/2018 Transfer Records Medical Records [address] [place] [id number] Abstract, Provider Social History Tobacco Use Types [...] on filedocumented in this encounter Care Teams Sales And Training Specialist Relationship Specialty Start Date End Date Salud Lester MD PCP - General Internal Medicine 03/29/18 Arnulfo Wilks MD [address] [place] [address] Specialist Cardiovascular Disease 08/22/20 Laura Palma NP [address] [place] [address] Cardiology 08/22/20 documented as of this encounter
--- OUTSIDE RECORDS SUMMARY | 2024-08-11 13:27 | XMS_ITS | Encounter Summary ---
Author Organization [facility] Address [address] [place] [address] Care Team Providers Care Prepress Specialist Name Role Phone Salud Lester MD Primary Care Provider Geoffrey Arnulfo Sheldon MD Unavailable [phone] Laura Palma NP Unavailable [phone]- [phone] Encounter Details Date Type Department Care Team Description 07/22/2020 X Ray Operator Report Medical Records [address] [place] [address] Facundo Garcia MD Social History Tobacco Use Types Packs/Day Years [...] on filedocumented in this encounter Care Teams Prepress Specialist Relationship Specialty Start Date End Date Salud Lester MD PCP - General Internal Medicine 03/29/18 Arnulfo Wilks MD [address] [place] [address] Specialist Cardiovascular Disease 08/22/20 Laura Palma NP [address] [place] [address] Cardiology 08/22/20 documented as of this encounter
--- OUTSIDE RECORDS SUMMARY | 2024-08-11 13:27 | XMS_ITS | Encounter Summary ---
Author Organization [facility] Address [address] [place] [address] Care Team Providers Care Textiles Printer Name Role Phone Salud Lester MD Primary Care Provider Arnulfo Mccollum MD Unavailable [phone] Laura Palma NP Unavailable [phone]- [phone] Encounter Details Date Type Department Care Team Description 04/15/2021 Storehouse Clerk Report Medical Records [address] [place] [address] AkshatAnton fitzpatrickcecy Social History Tobacco Use Types Packs/Day Years [...] on filedocumented in this encounter Care Teams Textiles Printer Relationship Specialty Start Date End Date Salud Lester MD PCP - General Internal Medicine 03/29/18 Arnulfo Wilks MD [address] [place] [address] Specialist Cardiovascular Disease 08/22/20 Laura Palma NP [address] [place] [address] Cardiology 08/22/20 documented as of this encounter
--- OUTSIDE RECORDS SUMMARY | 2024-08-11 13:27 | XMS_ITS | Encounter Summary ---
Author Organization [facility] Address [address] [place] [address] Care Team Providers Care Cleaner Window Name Role Phone Salud Lester MD Primary Care Provider Arnulfo Mccollum MD Unavailable [phone] Laura Palma NP Unavailable [phone] Reason for Visit * Reason Onset Date Comments Anticoagulation 03/23/2019 EGD - Dr Best 04/11/19 - Semaj Encounter Details Date Type Department Care Team Description 03/23/2019 Telephone Gastroenterology - [place] [address] [facility] [address] [place] [address] Jack Best MD [address] [facility] [address] [place] [address] Anticoagulation (EGD - Dr Best 04/11/19 - Semaj) Social History Tobacco Use Types Packs/Day Years Used Date Smoking Tobacco: Never Smokeless Tobacco: Never Alcohol Use Standard Drinks/Week Comments No 0 (1 standard drink = 0.6 oz pur e alcohol) Sex Assigned at Date Recorded Not on file documented as of this encounter Miscellaneous Notes * Telephone Encounter - Hoa Sewell PA-C - 03/23/2019 9:41 AM EDT She is alset, already have [facility], I send new letter with instructions, also we gave instructions to [facility]. thanks * Telephone Encounter - Maryellen Gonzalez L.P.N. - 03/23/2019 9:20 AM EDT Please determine if patient has to hold Eliquis prior to her EGD with Dr Best on 04/11/19. Please advise./dg * Telephone Encounter - Maryellen Gonzalez L.P.N. - 03/23/2019 8:43 AM EDT Patient scheduled for an EGD with DR Best on 04/11/19 @ [facility]. Patient on Eliquis./dg documented in this encounter Plan of Treatment Not on file documented as of this encounter Visit Diagnoses Not on filedocumented in this encounter Care Teams Cleaner Window Relationship Specialty Start Date End Date Salud Lester MD PCP - General Internal Medicine 03/29/18 Arnulfo Wilks MD [address] [place] [address] Specialist Cardiovascular Disease 08/22/20 Laura Palma NP [address] [place] [address] Cardiology 08/22/20 documented as of this encounter
--- OUTSIDE RECORDS SUMMARY | 2024-08-11 13:27 | XMS_ITS | Encounter Summary ---
Author Organization [facility] Address [address] [place] [address] Care Team Providers Care Tire Classifier Name Role Phone Salud Lester MD Primary Care Provider Arnulfo Mccollum MD Unavailable [phone] Laura Palma NP Unavailable [phone] Encounter Details Date Type Department Care Team Description 03/24/2019 Orders Only Medical Records [address] [place] [address] Abstract, Provider Epigastric abdominal pain; Chronic nausea; [...] reflux documented in this encounter Care Teams Tire Classifier Relationship Specialty Start Date End Date Salud Lester MD PCP - General Internal Medicine 03/29/18 Arnulfo Wilks MD [address] [place] [address] [place] [address] Specialist Cardiovascular Disease 08/22/20 Laura Palma NP [address] [place] [address] Cardiology 08/22/20 documented as of this encounter
--- OUTSIDE RECORDS SUMMARY | 2024-08-11 13:27 | XMS_ITS | Encounter Summary ---
Author Organization [facility] Address [address] [place] [address] Care Team Providers Care Hazardous Waste Management Specialist Name Role Phone Salud Lester MD Primary Care Provider Arnulfo Mccollum MD Unavailable [phone] Laura Palma NP Unavailable [phone] Reason for Visit * Reason Onset Date Comments Jumana Special Procedure Gi 01/19/2020 endos copy Encounter Details Date Type Department Care Team Description 01/19/2020 Telephone Gastroenterology - [address] [phone] Hoa Sewell DScPAS [facility] Procedure Gi [...] daughter to schedule endoscopty - patient speak Indonesian and daughter is on verbal and brings patient to office - hosp. appointment Caller offered to speak with the nurse for assistance: NO Response: Contact Soo [phone] to schedule endoscopy documented in this encounter Plan of Treatment Not on file documented as of this encounter Visit Diagnoses Not on filedocumented in this encounter Care Teams Hazardous Waste Management Specialist Relationship Specialty Start Date End Date Salud Lester MD PCP - General Internal Medicine 03/29/18 Arnulfo [address] [place] [address] Specialist Cardiovascular Disease 08/22/20 Laura Palma NP [address] [place] [address] Cardiology 08/22/20 documented as of this encounter
--- OUTSIDE RECORDS SUMMARY | 2024-08-11 13:27 | XMS_ITS | Encounter Summary ---
Author Organization [facility] Address [address] [place] [address] Care Team Providers Care Regional Sales Executive Name Role Phone Salud Lester MD Primary Care Provider Arnulfo Mccollum MD Unavailable [phone] Laura Palma NP Unavailable [phone] Reason for Visit * Reason Onset Date Comments refill request 12/27/2019 Encounter Details Date Type Department Care Team Description 12/27/2019 Refill Gastroenterology - [address] [place] [phone] Hoa Sewell DScPAS refill request Social History [...] - 12/27/2019 12:00 PM EDT VLADIMIR 12/13/2019 NOV 01/17/2020 30 day supply. documented in this encounter Plan of Treatment Not on file documented as of this encounter Visit Diagnoses Not on filedocumented in this encounter Care Teams Regional Sales Executive Relationship Specialty Start Date End Date Salud Lester MD PCP - General Internal Medicine 03/29/18 Arnulfo Wilks MD [address] [place] [address] Specialist Cardiovascular Disease 08/22/20 Laura Palma NP [address] [place] [address] [id number] Cardiology 08/22/20 documented as of this encounter
--- OUTSIDE RECORDS SUMMARY | 2024-08-11 13:27 | XMS_ITS ---
Author Organization [facility] Address [address] [place] [address] Care Team Providers Care Tailing Hand Name Role Phone Salud Lester MD Primary Care Provider Unavaila Arsh Rincon Unavailable [phone] REASON FOR VISIT cx appt 12/20/23 Encounters Encounter Location Date Provider Diagnosis [facility] [address] [place] [address] 11/12/2023 [facility] Plan Of Treatment No Information Progress Notes * Camille ANDRADEDOB:1940 (82 yo F)Acc No.[id number]:11/12/2023 Patient:?Camille Andrade :1940???Age:82 Y???Sex:Female Address: [place] [address] * true * Date:? Generated for Adalbertoi kip/Reynaldo/eTransmitting on:?08/11/2024 01:27 PM EDT
--- OUTSIDE RECORDS SUMMARY | 2024-08-11 13:27 | XMS_ITS | Clinical Summary ---
Author Organization [address] [facility] Address [address] [place] [address] Phone Care Team Providers Care Turner In Name Role Phone Salud Lester MD Primary Care Provider [phone] Allergies Active Allergy Reactions Criticality Noted Date Comments Atorvastatin 04/12/2009 Ciprofloxacin 12/19/2015 Ezetimibe 04/12/2009 Irbesartan-Hydrochlorothiazide 10/25 Moxifloxacin 06/02/2012 Nifedipine 10/25/2009 Rosuvastatin Calcium 04/12/2009 Terazosin 07/29/2009 Valsartan 07/29/2009 Warfarin 04/17/2013 Medications albuterol HFA (PROAIR HFA ; PROVENTIL HFA [...] 25 mcg by mouth daily. Active lisinopril (PRINIVIL,ZESTR IL) 40 mg tablet Take 40 mg by [...] Active inhaler, assist devices (AEROCHAMBER PLUS FLOW-VU [facility] 09/28/2018 Active sulfaSALAzine (AZULFIDINE) 500 mg tablet Take 500 mg by mouth 2 times daily. 11/18/2017 Active warfarin (COUMADIN) 5 mg tablet Take 5 mg by mouth See Admin Instructions. [place] [facility] managing INR's. Active Active Problems [...] controlled at this time on diltiazem, continue -[id number] = 6 (age, gender, HTN, CHF, DM), [...] Encounters Date Type Department Care Team Description 07/10/2024 8:45 AM EST Office Visit Orthopedic Surgery - [place] [address] [facility] [address] [place] [address] Vinny Yates, DPM Primary osteoarthritis of both feet (Primary Dx); Follow-up exam; Acquired hallux valgus of right foot; Acquired hallux valgus of left foot; Acquired hammer toe of right foot; Hammer toe of left foot; Dermatophytosis of nail; Type II diabetes mellitus with peripheral circulatory disorder (CMS/HCC); Metatarsalgia of both feet; Corns and callosities; Pain in toe of left foot; Pain in toe of right foot; Difficulty walking from Last 3 Months Immunizations [...] drink = 0.6 oz pur e alcohol) Comments Unknown Sex and Gender Information Value Date Recorded Sex Assigned at Not on file Legal Sex Female 5:27 AM EST Gender Identity Not on file Sexual Orientation Not on file Obstetrics History Last Filed Vital Signs Vital Sign Reading Time Taken Comments Blood Pressure - - Pulse - - Temperature - - Respiratory Rate - - Oxygen Saturation - - Inhaled Oxygen Concentration - - Weight 111 kg (245 lb) 07/10/2024 8:17 AM EST Height 167.6 cm (5' 5.98 ) 07/10/2024 8:17 AM ES T Body Mass Index 39.56 07/10/2024 8:17 AM EST Plan of Treatment Upcoming Encounters Date Type Department Care Team (Late st Contact Info) Description 10/05/2024 8:45 AM EDT Office Visit Orthopedic Surgery - [place] [address] [address] Vinny Yates DPM [address] [address] Health Maintenance Due Date Last Done Comments Diabetes: Annual Foot Exam 1950 Diabetes: Annual Retina Eye Exam 1950 Zoster Vaccines (1 of 2) 1988 RSV Immunization Patients 60+ Years Old (1 - 1-dose 75+ series) 2013 Pneumococcal Vaccine: 50+ Years (2 of 2 - PPSV23) 04/30/2016 03/05/2016, 03/05/2016, 03/05/2010 Diabetes: Annual GFR (Glomerular Filtration Rate) 10/05/2019 10/04/2018 COVID-19 Vaccine (3 - Pfizer risk series) 08/26/2020 07/29/2020, 07/08/2020 Cholesterol Screening (Lipid Panel) 05/03/2022 Depression Screening 05/03/2022 Falls Risk Assessment 05/03/2022 Medicare Annual Wellness Visit 05/03/2022 Osteoporosis Screening (Bone Density Screening) 05/03/2022 Social Influencers of Health Screening 05/03/2022 Diabetes: Annual Urine Albumin-Creatinine Ratio (uACR) 05/15/2022 Diabetes: Blood Sugar Control Test (HGBA1C) 05/15/2022 Hypertension/CHF/CAD Annual BMP Blood Test 05/15/2022 10/04/2018 DTaP,Tdap,and Td Vaccines (4 - Td or Tdap) 02/08/2033 02/08/2023, 10/23/2011, 10/23/2011, Additional history exists Influenza Vaccine Completed 03/12/2024, , 03/25/2022, Additional [...] patient's age to complete this topic Meningococcal B Vacine Aged Out No lo nger eligible based on patient's age to complete this topic RSV Immunization Patients Under 20 months Aged Out No longer eligible based on patient's age to complete this topic Varicella Vaccines Aged Out No longer eligible based on patient's age to complete this topic Procedures Procedure Name Priority Date/Time Associated Diagnosis Comments XR FOOT 3+ VIEWS BILAT Routine 07/10/2024 8:26 AM EST Follow-up exam ANNUAL BMP BLOOD TEST Routine 10/04/2018 from Last 3 Months or Most Recently Relevant to Health Maintenance Results * XR Foot 3+ Views bilat (07/10/2024 8:26 AM EST) Anatomical Region Laterality Modality Lower Extremities, Foot Bilateral Computed Radiography Narrative 07/10/2024 1:03 PM EST Right foot ??3 views No fracture. No radiopaque foreign joint spaces ??Arthritis ??severe Moderate bunion deformity with windswept deformity of hammertoe contractures 2 through 5 Foot position Pes planus with Talus navicular uncovering decreased calcaneal inclination anterior displaced symes line talus navicular joint to calcaneal cuboid joint ?? Hindfoot fusion noted consolidation noted Left foot 3 views No fracture. No radiopaque foreign joint spaces ?? Arthritis ? severe Severe bunion deformity noted with previous failed Baumann or Cook bunionectomy hammertoe contractures 2 through 5 windswept deformity Foot position Pes planus with Talus navicular uncovering decreased calcaneal inclination anterior displaced symes line talus navicular joint to calcaneal cuboid joint ?? Vinny Yates DPM IMG XR PROCEDURES Final R esult * Annual BMP Blood Test (10/04/2018) Annual BMP Blood Test Abstracted us Historical Provider MD HEALTH MAINTENANCE Final Result from Last 3 Months or Most Recently Relevant to Health Maintenance Insurance MEDICARE MEDICAID - [place] Care Teams Turner In Relationship Specialty Start Date End Date Salud Lester MD [address] [place] [phone] PCP - General Internal Medicine 03/29/18
--- OUTSIDE RECORDS SUMMARY | 2024-08-11 13:27 | XMS_ITS | Clinical Summary ---
Author Organization [facility] Address [address] [facility] [place] [address] Care Team Providers Care Lumber Loader Name Role Phone Salud Lester MD Primary Care Provider Arnulfo Mccollum MD Unavailable [phone] Laura Palma DESIGNATED BROKER Unavailable [phone] Allergies Active Allergy Reactions Severity Noted Date Comments Atorvastatin 04/12/2009 Avalide 10/25/2009 Avelox 06/02/2012 Ciprofloxacin 12/19/2015 Ezetimibe 04/12/2009 Nifedipine 10/25/2009 Rosuvastatin Calcium 04/12/2009 Terazosin 07/29/2009 Valsartan 07/29/2009 Warfarin 04/17/2013 Medications Medication Sig Dispensed Refills Start Date End Date Status Meclizine HCl 25 MG Tab 25 mg as needed. 0 03/27/2016 Active metformin (GLUCOPHAGE-XR) 500 MG 24 hr tablet 500 mg. 0 09/03/2010 Active sulfaSALAzine (AZULFIDINE) 500 MG tablet Take 500 mg by mouth 2 times daily. 0 11/18/2017 Active ALBUTEROL SULFATE (VENTOLIN HFA) 108 (90 BASE) MCG/ACT Aero Soln INHALE 1 PUFF EVERY 4 HOURS NEEDED. 0 07/07/2016 Active gabapentin (NEURONTIN) 300 MG capsule Take 300 mg by mouth daily. As needed 0 Active levothyroxine (SYNTHROID, LEVOTHROID) 25 MCG tablet Take 25 mcg by mouth daily. 0 Active glipiZIDE (GLUCOTROL) 5 MG tablet Take 5 mg by mouth daily. 0 Active Spacer/Aero-Holding Chambers (AEROCHAMBER PLUS CANDACE-VU) Misc 0 09/28/2018 Active pantoprazole (PROTONIX) 40 MG tablet Take 40 mg by mouth daily. 0 Active pantoprazole (PROTONIX) 40 MG tablet Take 1 Tab by mouth daily. 30 Tab 5 08/14/2019 Active folic acid (FOLVITE) 1 MG tablet Take 1 mg by mouth daily. 0 Active warfarin (COUMADIN) 5 MG tablet Take 5 mg by mouth See Admin Instructions. [place] [facility] managing INR's. 0 Active furosemide (LASIX) 40 MG tablet Take 1.5 mg by mouth 2 times daily. 0 Active lisinopril (PRINIVIL,ZESTRIL) 40 MG tablet Take 40 mg by mouth daily. 0 Active diltiazem (DILACOR XR) 240 MG 24 hr capsule Take 1 Capsule by mouth daily. 90 Capsule 0 11/14/2021 Active Active Problems Problem Noted Date Chronic atrial fibrillation 09/03/2020 Last Assessment & Plan: -She felt better [...] controlled at this time on diltiazem, continue -[id number] = 6 (age, gender, HTN, CHF, DM), continue anticoagulation with warfarin. Risks and benefits of anticoagulation have thoroughly reviewed with the patient she verbalized understanding and agrees to continue. Aortic aneurysm 09/03/2020 Last Assessment & Plan: -Dilated at 4.4 cm from July 2019 -Discussed strict blood pressure control Carotid artery disease 09/03/2020 Last Assessment & Plan: -50-69% LICA disease from September 2018 -followed by Dr. Lange of [facility] Diabetic polyneuropathy associated with type 2 diabetes mellitus 09/26/2018 H/O osteomyelitis 09/26/2018 Hammer toe of left foot 09/26/2018 Bilateral bunions 09/26/2018 Esophageal reflux 12/29/2017 Rheumatoid arthritis 11/18/2017 Hypertension 07/07/2016 Last Assessment & Plan: 110/64 Continue diltiazem, furosemide, and lisinopril at current doses. Anxiety 04/09/2016 Paroxysmal atrial fibrillation 6 DVT (deep venous thrombosis) 04/02/2016 Diabetes mellitus type 2, uncomplicated 03/24/2016 Chronic obstructive pulmonary disease Pulmonary embolism 03/05/2016 Hyperlipidemia 03/05/2016 Congestive heart failure 02/13/2016 Last Assessment & Plan: -weight up 8lbs, [...] diffuse, nontoxic 02/07/2014 Nonalcoholic liver disease, chronic 05/2012 Varicose veins 12/16/2012 Immunizations Name Administration Dates Next Due Influenza (>6 Months) Split Preservative Free 03/05/2016,03/06/2015,02/17/2011,2009 Influenza Vaccine-preservati ve Free-quadrivalent 4 Years 02/26/2012 Influenza vaccine high dose age 65 and over 03/03/2013 Pneumococcal Conjugate PCV-13 03/05/2016 Tdap 10/23/2011 Social History Tobacco Use Types Packs/Day Years Used Date Smoking Tobacco: Never Smokeless Tobacco: Never Alcohol Use Standard Drinks/Week Comments No 0 (1 standard drink = 0.6 oz pur e alcohol) Sex Assigned at Date Recorded Not on file Last Filed Vital Signs Vital Sign Reading Time Taken Comments Blood Pressure 130/60 09/25/2020 3:48 PM EDT Pulse 86 09/25/2020 3:48 PM EDT Temperature 36.7 ??C (98.1 ??F) 07/04/2019 2:19 PM ES T Respiratory Rate 17 07/04/2019 2:19 PM EST Oxygen Saturation 96% 09/25/2020 3:48 PM EDT Inhaled Oxygen Concentration - - Weight 125.2 kg (276 lb) 09/25/2020 3:48 PM EDT Height 167.6 cm (5' 6 ) 09/25/2020 3:48 PM EDT Body Mass Index 44.55 09/25/2020 3:48 PM EDT Plan of Treatment Health Maintenance Due Date Last Done Comments Covid-19 Vaccine (#1) 06/30/1939 DEPRESSION SCREEN 1950 DIABETES/HEART DISEASE: MARIELLE AL CHOLESTEROL (LDL) 1956 DIABETES: ANNUAL EYE EXAM 1956 DIABETES: ANNUAL URINE PROTE IN TEST (MICROALBUMIN) 1956 DIABETES: BLOOD SUGAR CONTRO L TEST (HGBA1C) 1956 MAMMOGRAM 1978 SHINGLES VACCINE (1 of 2) 1988 BONE DENSITY SCREENING 12/29/2003 FALL RISK ASSESSMENT 12/29/2003 PNEUMOCOCCAL VACCINE (2 - PP SV23 or PCV20) 03/05/2017 03/05/2016, 03/05/2016, 03/05/2010 DIABETES: ANNUAL FOOT EXAM 2019 12/27/2018, DTAP/TDAP/TD (2 - Td or Tdap) 10/22/2021 10/23/2011, 10/23/2011 INFLUENZA (#1) 2024 03/09/2019, 01/29, 03/11/2017, Additional history exists BMI CHECK/ADVISE 05/31/2024 Care Teams Lumber Loader Relationship Specialty Start Date End Date Salud Lester MD PCP - General Internal Medicine 03/29/18 Arnulfo Wilks MD [address] [place] [address] Specialist Cardiovascular Disease 08/22/20 Laura Palma NP [address] [place] [phone] Cardiology 08/22/20
== END 2024-08-11 15:31 | disposition home or self-care (01) ==
LOC: HO.HMCC 11:38
PROVIDERS: PCP Internal Medicine; Visit Provider Internal Medicine
DX: Z00.00 Encounter for general adult medical examination without abnormal findings (principal); I48.91 Unspecified atrial fibrillation; I50.30 Unspecified diastolic (congestive) heart failure; M05.79 Rheumatoid arthritis with rheumatoid factor of multiple sites without organ or systems involvement; J44.1 Chronic obstructive pulmonary disease with (acute) exacerbation; I10 Essential (primary) hypertension; E03.9 Hypothyroidism, unspecified

== ENCOUNTER → 2024-08-11 11:38 | Outpatient (BNVA) | payer MEDICARE, MEDICAID, SELFPAY | PROVIDERS: PCP Internal Medicine; Visit Provider Internal Medicine | DX: Z00.00 Encounter for general adult medical examination without abnormal findings (principal); I48.91 Unspecified atrial fibrillation; I11.0 Hypertensive heart disease with heart failure; I50.30 Unspecified diastolic (congestive) heart failure; E03.9 Hypothyroidism, unspecified; J44.1 Chronic obstructive pulmonary disease with (acute) exacerbation; M05.79 Rheumatoid arthritis with rheumatoid factor of multiple sites without organ or systems involvement | CPT/HCPCS: 96127 ==

== ENCOUNTER 2024-08-24 07:55 | Outpatient (AMB) | payer MEDICARE, MEDICAID, SELFPAY ==
--- OUTSIDE RECORDS SUMMARY | 2024-08-24 07:59 | XMS_ITS ---
Author Organization [facility] Address [address] [place] [phone] Care Team Providers Care Mortgage Manager Name Role Phone Trevon PINEDA, Salud Primary Care Provider Unavaila Arsh Rincon Unavailable [phone] Encounters Encounter [facility] [address] [place] [phone] 12/20/2023 Ar[facility] Plan Of Treatment No Information Progress Notes * Camille GUZMANDOB:1940 (83 yo F)Acc No.[id number]:12/20/2023 Progress Notes Patient:?TIMKELLENNenoCamille Provider:?Arsh West DPM :1940???Age:82 Y???Sex:Female D ate:12/20/2023 Address: [id number] Pcp:Salud Lester MD Subjective: * Chief Complaints: [...] West DPM Date:?2023 Generated for Linda shin/Reynaldo/eTransmitting on:?08/24/2024 07:58 AM EDT
--- OUTSIDE RECORDS SUMMARY | 2024-08-24 07:59 | XMS_ITS | Encounter Summary ---
Author Organization [facility] Address [address] [place] [address] Care Team Providers Care Laundry Attendant Name Role Phone Salud Lester MD Primary Care Provider Geoffreya Arnulfo Sheldon MD Unavailable [phone] Laura Palma NP Unavailable [phone] Encounter Details Date Type Department Care Team Description 10/16/2020 SCAN Medical Records [address] [place] [address] Abstract, Provider Social History Tobacco Use Types [...] on filedocumented in this encounter Care Teams Laundry Attendant Relationship Specialty Start Date End Date Salud Lester MD PCP - General Internal Medicine 03/29/18 Arnulfo Wilks MD [address] [place] [phone] Specialist Cardiovascular Disease 08/22/20 Laura Palma NP [address] [place] [address] Cardiology 08/22/20 documented as of this encounter
--- OUTSIDE RECORDS SUMMARY | 2024-08-24 07:59 | XMS_ITS | Encounter Summary ---
Author Organization [facility] Address [address] [place] [address] Care Team Providers Care Lead Driver Name Role Phone Salud Lester MD Primary Care Provider Arnulfo Mccollum MD Unavailable [phone] Laura Palma NP Unavailable [phone] Encounter Details Date Type Department Care Team Description 04/15/2021 Fashion Buying Internship Report Medical Records [address] [place] [address] AkshatAnton fitzpatrickcecy Social History Tobacco Use Types [...] on filedocumented in this encounter Care Teams Lead Driver Relationship Specialty Start Date End Date Salud Lester MD PCP - General Internal Medicine 03/29/18 Arnulfo Wilks MD [address] [place] [address] Specialist Cardiovascular Disease 08/22/20 Laura Palma NP [address] [place] [address] Cardiology 08/22/20 documented as of this encounter
--- OUTSIDE RECORDS SUMMARY | 2024-08-24 07:59 | XMS_ITS | Encounter Summary ---
Author Organization [facility] Address [address] [place] [address] Care Team Providers Care Senior Pensions Administrator Name Role Phone Salud Lester MD Primary Care Provider Arnulfo Mccollum MD Unavailable Laura Palma NP Unavailable [phone] Reason for Visit * Reason Onset Date Comments Jumana Special Procedure Gi 01/19/2020 endos copy Encounter Details Date Type Department Care Team Description 01/19/2020 Telephone Gastroenterology - [address] [address] [facility] Sewell [facility] [...] daughter to schedule endoscopty - patient speak Uruguayan and daughter is on verbal and brings patient to office - hosp. appointment Caller offered to speak with the nurse for assistance: NO Response: Contact Soo [phone] to schedule endoscopy documented in this encounter Plan of Treatment Not on file documented as of this encounter Visit Diagnoses Not on filedocumented in this encounter Care Teams Senior Pensions Administrator Relationship Specialty Start Date End Date Salud Lester MD PCP - General Internal Medicine 03/29/18 Arnulfo Wilks MD [address] [place] [address] Specialist Cardiovascular Disease 08/22/20 Laura Palma NP [address] [place] [address] Cardiology 08/22/20 documented as of this encounter
--- OUTSIDE RECORDS SUMMARY | 2024-08-24 07:59 | XMS_ITS | Encounter Summary ---
Author Organization [facility] Address [address] [place] [address] Care Team Providers Care Customer Service Teller Name Role Phone Salud Lester MD Primary Care Provider Arnulfo Mccollum MD Unavailable [phone] Laura Palma NP Unavailable [phone] Reason for Visit * Reason Onset Date Comments Anticoagulation 03/23/2019 EGD - Dr Best 04/11/19 - Semaj Encounter Details Date Type Department Care Team Description 03/23/2019 Telephone Gastroenterology - [place] [address] [facility] [address] [place] [address] Jack Best MD [address] [facility] [address] [place] [address] Anticoagulation (EGD - Dr Best 04/11/19 - [...] EGD with DR Best on 04/11/19 @ [facility]. Patient on Eliquis./dg documented in this encounter Plan of Treatment Not on file documented as of this encounter Visit Diagnoses Not on filedocumented in this encounter Care Teams Customer Service Teller Relationship Specialty Start Date End Date Salud Lester MD PCP - General Internal Medicine 03/29/18 Arnulfo Wilks MD [address] [place] [address] Specialist Cardiovascular Disease 08/22/20 Laura Palma NP [address] [place] [address] Cardiology 08/22/20 documented as of this encounter
--- OUTSIDE RECORDS SUMMARY | 2024-08-24 07:59 | XMS_ITS | Encounter Summary ---
Author Organization [facility] Address [address] [place] [address] Care Team Providers Care Hospital Mortician Name Role Phone Salud Lester MD Primary Care Provider Arnulfo Mccollum MD Unavailable [phone] Laura Palma NP Unavailable [phone] Reason for Visit * Reason Onset Date Comments Hospital Procedure 10/16/2020 Sotalol Load/ RAUL/Afib Ablation Encounter Details Date Type Department Care Team Description 10/16/2020 Telephone Cardio PVC POC 154 300 [facility] [address] [place] [address] Daina Chaney MD 300 [facility] [address] [place], [place] [id number] Hospital Procedure (Sotalol Load/RAUL/Afib Ablation) Social History [...] load on a Wednesday 6.. and have polymerization oven tender doctor monitor the patient over the weekend [...] on filedocumented in this encounter Care Teams Hospital Mortician Relationship Specialty Start Date End Date Salud Lester MD PCP - General Internal Medicine 03/29/18 Arnulfo Wilks MD [address] [place] [address] Specialist Cardiovascular Disease 08/22/20 Laura Palma NP [address] [place] [address] Cardiology 08/22/20 documented as of this encounter
--- OUTSIDE RECORDS SUMMARY | 2024-08-24 07:59 | XMS_ITS | Clinical Summary ---
Author Organization [facility] Address [address] [facility] [place] [address] Care Team Providers Care Global Vp Creative + Content Marketing Name Role Phone Salud Lester MD Primary Care Provider Arnulfo Mccollum MD Unavailable Laura Palma TREE KILLER Unavailable [phone] Allergies Active Allergy Reactions Severity Noted Date [...] 5 mg by mouth See Admin Instructions. [facility] managing INR's. 0 Active furosemide [...] controlled at this time on diltiazem, continue -[id number] = 6 (age, gender, HTN, CHF, DM), [...] history exists BMI CHECK/ADVISE 05/31/2024 Care Teams Global Vp Creative + Content Marketing Relationship Specialty Start Date End Date Salud Lester MD PCP - General Internal Medicine 03/29/18 Arnulfo Wilks MD [address] [place] [address] Specialist Cardiovascular Disease 08/22/20 Laura Palma NP [address] [place] [address] [id number] Cardiology 08/22/20
--- OUTSIDE RECORDS SUMMARY | 2024-08-24 07:59 | XMS_ITS | Clinical Summary ---
Author Organization [address] [facility] Address [address] [place] [address] Phone Care Team Providers Care Chro Name Role Phone Salud Lester MD Primary Care Provider [phone] Allergies Active Allergy Reactions Criticality Noted Date [...] Active inhaler, assist devices (AEROCHAMBER PLUS FLOW-VU [facility] [place] 09/28/2018 Active sulfaSALAzine (AZULFIDINE) 500 mg tablet Take 500 mg by mouth 2 times daily. 11/18/2017 Active warfarin (COUMADIN) 5 mg tablet Take 5 mg by mouth See Admin Instructions. [facility] managing INR's. Active Active Problems [...] controlled at this time on diltiazem, continue -[id number] = 6 (age, gender, HTN, CHF, DM), [...] AM EST Office Visit Orthopedic Surgery - [place] [address] 175 [facility] [address] [place] [address] Vinny Yates, DPM Primary osteoarthritis of [...] AM EDT Office Visit Orth[facility] Surgery - [place] [address] [address] Vinny Yates DPM [address] [address] Health Maintenance Due Date Last Done Comments [...] Insurance MEDICARE [place]ICAID - [place] Care Teams Chro Relationship Specialty Start Date End Date Salud Lester MD [address] [place] [phone] PCP - General Internal Medicine 03/29/18
--- OUTSIDE RECORDS SUMMARY | 2024-08-24 07:59 | XMS_ITS | Encounter Summary ---
Author Organization [facility] Address [address] [facility] [place] [address] Care Team Providers Care Special Systems Technician Name Role Phone Salud Lester MD Primary Care Provider Arnulfo Mccollum MD Unavailable [phone] Laura Palma NP Unavailable [phone] Encounter Details Date Type Department Care Team Description 03/16/2019 Orders Only Gastroenterology - [address] [place] [id number] Hoa Sewell, DScPAS Social History Tobacco Use [...] on filedocumented in this encounter Care Teams Special Systems Technician Relationship Specialty Start Date End Date Salud Lester MD PCP - General Internal Medicine 03/29/18 Arnulfo Wilks MD [address] [place] [address] Specialist Cardiovascular Disease 08/22/20 Laura Palma NP [address] [place] [address] Cardiology 08/22/20 documented as of this encounter
--- OUTSIDE RECORDS SUMMARY | 2024-08-24 07:59 | XMS_ITS ---
Author Organization [facility] Address [address] [place] [address] Care Team Providers Care City Controller Name Role Phone Salud Lester MD Primary Care Provider Unavaila Arsh Rincon Unavailable [phone] REASON FOR VISIT cx appt 12/20/23 Encounters Encounter Location Date Provider Diagnosis [facility] [address] [place] [address] 11/12/2023 [facility] Plan Of Treatment No Information Progress Notes * Camille ANDRADEDOB:1940 (82 yo F)Acc No.[id number]:11/12/2023 Patient:?Camille Andrade :1940???Age:82 Y???Sex:Female Address: [place] [address] * true * Date:? Generated for Adalbertoi kip/Reynaldo/eTransmitting on:?08/24/2024 07:59 AM EDT
--- OUTSIDE RECORDS SUMMARY | 2024-08-24 07:59 | XMS_ITS | Encounter Summary ---
Author Organization [facility] Address [address] [place] [address] Care Team Providers Care Dustless Operator Name Role Phone Salud Lester MD Primary Care Provider Geoffrey Arnulfo Sheldon MD Unavailable [phone] Laura Palma NP Unavailable [phone] Encounter Details Date Type Department Care Team Description 07/22/2020 Rehabilitation Psychologist Report Medical Records [address] [place] [address] Facundo Garcia MD Social History Tobacco Use [...] on filedocumented in this encounter Care Teams Dustless Operator Relationship Specialty Start Date End Date Salud Lester MD PCP - General Internal Medicine 03/29/18 Arnulfo Wilks MD [address] [place] [address] Specialist Cardiovascular Disease 08/22/20 Laura Palma NP [address] [place] [address] Cardiology 08/22/20 documented as of this encounter
--- OUTSIDE RECORDS SUMMARY | 2024-08-24 07:59 | XMS_ITS | Data Portability ---
Author Organization [facility], [facility] Address [address] [place] [address] Assessment No assessment recorded. Plan of Treatment Reminders Order Date Submit Date Provider Last Modified By Organization Details Last Modified Time Details Appointments None recorded. Lab None recorded. Referral None recorded. Procedures None recorded. Surgeries None recorded. Imaging None recorded. Medication Orders acetaminoph en 300 mg-codeine [address] [id number], [address], [place], [id number], 5 14:45:38 acetaminoph en 300 mg-codeine [address] [facility] #[id number], [address], [place], [phone], 4 16:15:32 Patient TargetsNo targets recorded. Patient InstructionsNo instructions recorded. Reason for Referral None Reported. Results Created Date Observation Date Name Description Value Unit Range Abnormal Flag Note LastModifiedBy Organization Detail LastModifiedTime 01/29/20 24 08/25/2018 imagi ng/di agnos tic resul t No observ ation record ed. [email or web address] Not Available 12/31 10:50:24 Result Notes None recorded. Problems Name Problem SNOMED Code Status Onset Date Resolution Date Notes Provider Name and Address Organization Details Recorded Time No complaints 285770212 Active Status : 'I'; Not Available [facility] 4 09:24:55 Pain of joint of knee 8178321011 Active 2021 Status : 'A'; Not Available [facility] 4 11:57:34 Problem Notes None recorded. Procedures Surgical History Date Name Laterality Status Provider Name and Address Organization Details Recorded Time 5 Gel-One Knee Injection completed Singh Iyer PA-C [address], [place], [address], [facility] 06/16/2024 13:09:53 4 Gel-One Knee Injection completed Singh Iyer PA-C [address], [place], [address], [facility] 10/28/2023 16:49:54 Imaging Results Imaging Date Name Status LastModified by Organiz ation Details LastModified Time 08/25/2018 imaging/diag nostic result completed [email or web address] Information not available 01/29/2024 10:50:24 Procedure Notes None recorded. Medical Equipment None Reported. Allergies Allergen ID Allergen Name Allergen Category Reaction Reaction Severity Criticality Documentation Date Start Date Code Code System Note Provider Name and Address Organization Details Recorded Time 603061 warfarin medicatio n Not available Not available Not available 10/28/2023 20555 RxNorm JAMEEL TANG [facility] 4 15:51:31 201299 Remicade medicatio n Not available Not available Not available 10/28/2023 13352 0 RxNorm JAMEEL TANG [facility] 4 15:51:37 Medications Name Sig Start Date Stop Date Status Note LastModified by Organization Details LastModified Time furosemide 40 mg tablet TAKE 1 TABLET BY MOUTH TWICE DAILY active Not Available Not Available No t Available albuterol sulfate 0.63 mg/3 mL solution for nebulizatio n INHALE 3 ML EVERY 4-6 HOURS NEEDED FOR SHORTNESS OF BREATH OR WHEEZING active Not Available Not Available No t Available sulfasalazi ne 500 mg tablet TAKE 2 TABLET BY MOUTH TWICE DAILY. TAKE WITH FOOD active Not Available Not Available No t Available minocycline 100 mg capsule TAKE 1 CAPSULE BY MOUTH TWICE DAILY active Not Available Not Available No t Available potassium chloride ER 10 mEq tablet,exte nded release TAKE 2 TABLETS BY MOUTH DAILY active Not Available Not Available No t Available acetaminoph en 300 mg-codeine 30 mg tablet TAKE 1 TABLET BY MOUTH EVERY 4 HOURS FOR 14 DAYS active Not Available Not Available No t Available tramadol 50 mg tablet TAKE 1 TABLET BY MOUTH THREE TIMES DAILY NEEDED FOR PAIN active Not Available Not Available No t Available meclizine 25 mg tablet TAKE 1 TABLET BY MOUTH DAILY NEEDED FOR DIZZINESS active Not Available Not Available No t Available levothyroxi ne 50 mcg tablet TAKE 1 TABLET BY MOUTH EVERY MORNING active Not Available Not Available No t Available pantoprazol e 40 mg tablet,jerrod yed release TAKE 1 TABLET BY MOUTH DAILY AT 6 AM active Not Available Not Available No t Available pseudoephed rine-guaife nesin ER 80-700 mg tablet,exte nded release Percocet 5-325MG Tablet 08/13 completed Statu s: 'Disc ontin ued'; Not Available Not Available Not Available gabapentin 300 mg capsule TAKE 1 CAPSULE BY MOUTH TWICE DAILY active Not Available Not Available No t Available folic acid 1 mg tablet TAKE 1 TABLET BY MOUTH DAILY active Not Available Not Available No t Available montelukast 10 mg tablet TAKE 1 TABLET BY MOUTH DAILY active Not Available Not Available No t Available lisinopril 5 mg tablet TAKE 1 TABLET BY MOUTH TWICE DAILY active Not Available Not Available No t Available estradiol 0.01% (0.1 mg/gram) vaginal cream APPLY A PEA SIZED AMOUNT TO URETHRA OPENING ONCE DAILY active Not Available Not Available No t Available albuterol sulfate HFA 90 mcg/actuati on aerosol inhaler INHALE 2 PUFFS BY MOUTH EVERY 4 HOURS NEEDED FOR SHORTNESS OF BREATH OR WHEEZING active Not Available Not Available No t Available sertraline 50 mg tablet TAKE 1 TABLET BY MOUTH DAILY active Not Available Not Available No t Available glipizide 5 mg tablet TAKE 1 TABLET BY MOUTH EVERY DAY active Not Available Not Available No t Available ezetimibe 10 mg tablet TAKE 1 TABLET BY MOUTH DAILY active Not Available Not Available No t Available Spiriva with HandiHaler 18 mcg and inhalation capsules INHALE THE CONTENTS OF 1 CAPSULE VIA INHALATIO N DEVICE DAILY J 44.9 active Not Available Not Available No t Available DILT-XR 240 mg capsule, extended release TAKE 1 CAPSULE BY MOUTH DAILY active Not Available Not Available No t Available sulfasalazi ne sulfaSALA zine 500MG Tablet 02/14/ 2020 03/16 /2022 completed Statu s: 'Disc ontin ued'; Not Available Not Available Not Available salsalate Salsalate 500MG Tablet as directed 08/13 completed Statu s: 'Disc ontin ued'; Not Available Not Available Not Available Symbicort 160 mcg-4.5 mcg/actuati on HFA aerosol inhaler active Not Available Not Available Not Available FreeStyle Lite Strips USE TO CHECK BLOOD GLUCOSE EVERY DAY active Not Available Not Available No t Available Eliquis 5 mg tablet TAKE 1 TABLET BY MOUTH TWICE DAILY active Not Available Not Available No t Available Breo Ellipta 100 mcg-25 mcg/dose powder for inhalation INHALE 1 PUFF BY MOUTH DAILY active Not Available Not Available No t Available dapaglifloz in propanediol 5 mg tablet TAKE 1 TABLET BY MOUTH DAILY active Not Available Not Available No t Available Incruse Ellipta 62.5 mcg/actuati on powder for inhalation INHALE 1 PUFF BY MOUTH EVERY 24 HOURS DOSES SHOULD BE TAKEN AT LEAST 24 HOURS APART active Not Available Not Available No t Available Breo Ellipta 200 mcg-25 mcg/dose powder for inhalation INHALE 1 PUFF BY MOUTH DAILY active Not Available Not Available No t Available Vitals Date Recorded Body height Body mass index (BMI) Body weight Provider Name and Address Organization Details Last Updated DateTime 10/28/2023 167.64 cm 42 kg/m2 626163.02 g JAMEEL [facility] 10/28/2023 15:51:04 Date Recorded Body height Provider Name an d Address Organization Details Last Updated DateTime 06/16/2024 167.64 cm MELYSSA GARCIA [facility] 06/16/2024 14:33:40 Social History None recorded. Functional Status None recorded. Mental Status None recorded. Family History Nothing Reported. Medical History No medical history recorded. Gynecological HistoryNo gynecological history recorded. Obstetrics History GPAL:G 0 P 0 0 0 0 Past Encounters Encounter ID Performer Location Encounter Start Date Encounter Closed Date Diagnosis/Indication Diagnosis SNOMED-CT Code Diagnosis ICD10 Code Diagnosis Note [id number] [facility] [address] [place] [address] 10/28/2023 15:30:03 11/29/2023 07:40:35 Osteoarthritis of right knee joint 8107277706 40586 M17.11 Osteoarthr itis of knee 275713269 M17.9 Osteoarthr itis of left knee joint 5106518172 96040 M17.12 [id number] [facility] [address] [place] [address] 06/16/2024 14:28:32 06/27/2024 12:30:26 Osteoarthritis of right knee joint 9141241253 22824 M17.11 Osteoarthr itis of left knee joint 3989535998 46839 M17.12 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 5424440483 2643944 M25.561 M25.562 G89.28 Z96.653 Health Concerns Section Related Observation LastModified by Organization Detai ls LastModified Time None Recorded Concern Status LastModified by Organization Details LastModified Time None Recorded Advance Directives Directive None Recorded Payers Encounter Date Sequence Insurance Name Policy Number Policy White Covered Member ID White Member ID Guarantor Name 10/28/2023 1 [place] [facility] Camille Andrade [id number] Camille Andrade 10/28/2023 2 [place] [facility] Camille Andrade [id number] Camille Andraed 06/16/2024 1 [place] [facility] Camille Andrade [id number] Camille Andrade 06/16/2024 2 [place] [facility] Camille Andrade [id number] Camille Andrade Notes Date Note Type Note Provider Name and Address Organization Details Recorded Time 10/28/2023 text/html I am seeing the patient today under the supervision of who was available but who did not see the patient. Reason For VisitPatient is here today for Huyen gel 1 injection bilateral knees. Patient reports no adverse reaction from previous injections. Physical Findings Evaluation of the knees reveal no evidence of infection, no significant joint effusion, no warmth, or erythema. The injection sites are benign. Calves are supple and nontender. 5/5 strength. Some discomfort with range of motion. Assessment? ? Osteoarthritis of knee -bilateral knees Plan After meticulous sterile preparation, the knees bilaterally were injected with 1 vial of Huyen gel 1. Post-injection precautions were reviewed. I recommend ice, restriction of activities and re-evaluation next week for follow up injection. Singh Iyer PA-C [address], [place], [address], [facility] 10/28/2023 16:50:18 06/16/2024 text/html I am seeing the patient today under the supervision of who was available but who did not see the patient. Reason For VisitPatient is here today for Huyen gel 1 injection bilateral knees. Patient reports no adverse reaction from previous injections. Physical Findings Evaluation of the knees reveal no evidence of infection, no significant joint effusion, no warmth, or erythema. The injection sites are benign. Calves are supple and nontender. 5/5 strength. Some discomfort with range of motion. Assessment? ? Osteoarthritis of knee -bilateral knees Plan After meticulous sterile preparation, the knees bilaterally were injected with 1 vial of Huyen gel 1. Post-injection precautions were reviewed. I recommend ice, restriction of activities and re-evaluation next week for follow up injection. Singh Iyer PA-C [address], [place], [address], [facility] 07/06/2024 14:11:24 OBGyn Episode No OBEpisode recorded.
--- OUTSIDE RECORDS SUMMARY | 2024-08-24 07:59 | XMS_ITS | Encounter Summary ---
Author Organization [facility] Address [address] [place] [address] Care Team Providers Care Sustainable Design Coordinator Name Role Phone Salud Lester MD Primary Care Provider Arnulfo Mccollum MD Unavailable [phone] Laura Palma NP Unavailable [phone] Reason for Visit * Reason Onset Date Comments refill request 08/10/2019 Encounter Details Date Type Department Care Team Description 08/10/2019 Refill Gastroenterology - [address] [address] Hoa Sewell DScPAS refill request Social History Tobacco Use Types Packs/Day Years Used Date Smoking Tobacco: Never Smokeless Tobacco: Never Alcohol Use Standard Drinks/Week Comments No 0 (1 standard drink = 0.6 oz pur e alcohol) Sex Assigned at Date Recorded Not on file documented as of this encounter Miscellaneous Notes * Telephone Encounter - Laila Dugan - 08/10/2019 10:20 AM EDT Patient would like script to be: E-PRESCRIBED/FAXED TO PHARMACY When was the patients last office visit in Adult Medicine?: 03/28/2019 When was the last time the patient saw their PCP? Same as above Does patient have an upcoming appointment? Yes 09/04/2019 (THE MEDICATION IS NOT ON THE MED LIST AND IS IDENTIFIED BELOW): {MED LIST:72731) Med name: Pantoprazole sod Dosage: 40 mg # of tablets: na Local pharmacy with request for 30 -day supply Instructions: na Did you check the pharmacy information above?: YES Patients current insurance carrier[place] / Product Type: MEDICAREFEE-FOR-SERVICE documented in this encounter Plan of Treatment Not on file documented as of this encounter Visit Diagnoses Not on filedocumented in this encounter Care Teams Sustainable Design Coordinator Relationship Specialty Start Date End Date Salud Lester MD PCP - General Internal Medicine 03/29/18 Arnulfo Wilks MD [address] [place] [address] [place] [address] Specialist Cardiovascular Disease 08/22/20 [address] [place] [address] Cardiology 08/22/20 documented as of this encounter
[2024-08-24 08:00] VITALS: BP 122/72; PULSE 79; O2SAT 94; BMI 38.1
--- NOTE | 2024-08-24 08:00 | MHC.OFFVIS ---
Vital Signs 08/24/24 08:00 Height 5 ft 6 in Weight 235 lb 14.314 oz BMI 38.1 BP 122/72 Blood Pressure Location Lt brachial Position Sitting Pulse 79 Pulse Source Pulse Oximeter Pulse Oximetry (%) 94 Oxygen Delivery Method Room Air Intake Visit Reasons: RA Intake Note: Patient was last seen in the office on 06/06/[address] Mccollum. She presents today for follow up on RA and lab review. Allergies atorvastatin [From Lipitor] Allergy (Unknown, Verified 08/24/24 08:05) Leg cramps ciprofloxacin [From Cipro] Allergy (Unknown, Verified 08/24/24 08:05) Stomach Upset ezetimibe [From Zetia] Allergy (Unknown, Verified 08/24/24 08:05) leg cramps hydrochlorothiazide [From Avalide] Allergy (Unknown, Verified 08/24/24 08:05) Stomach Upset infliximab [From Remicade] Allergy (Unknown, Verified 08/24/24 08:05) Infection irbesartan [From Avalide] Allergy (Unknown, Verified 08/24/24 08:05) Stomach Upset metformin Allergy (Unknown, Verified 08/24/24 08:05) nausea moxifloxacin [From Avelox] Allergy (Unknown, Verified 08/24/24 08:05) Stomach Upset nifedipine Allergy (Unknown, Verified 08/24/24 08:05) upset stomach pravastatin Allergy (Unknown, Verified 08/24/24 08:05) stomach upset rosuvastatin [From Crestor] Allergy (Unknown, Verified 08/24/24 08:05) Leg cramps terazosin [From Hytrin] Allergy (Unknown, Verified 08/24/24 08:05) Stomach Upset valsartan [From Diovan] Allergy (Unknown, Verified 08/24/24 08:05) Stomach Upset warfarin [WARFARIN] Allergy (Unknown, Verified 08/24/24 08:05) Anaphylaxis HPI Comments Details: Patient is an 83-year-old female with COPD, diabetes complicated by CKD stage 3, hypertension complicated by heart failure with preserved ejection fraction, hyperlipidemia, hypothyroidism, atrial fibrillation on anticoagulation, polyarticular osteoarthritis and seropositive rheumatoid arthritis here today for follow up. Interval History: Patient last seen 06/06/[address] Mccollum. At that time she reported that the minocycline was not helping her much saying that she has been noticing more swelling, erythema and nodules of her fingers. Was given Tylenol 3 by her orthopedic doctor and takes tramadol 50 mg prn. It was difficult to evaluate whether she had residual RA activity or osteoarthritis and so the plan was to hold the minocycline for 1 month and see if symptoms get worse. Patient here with daughter today who helps with translation in Tunisian. Stopped minocycline for a month and notice worsening of her symptoms and so it was restarted with improvement in the symptoms. Still has intermittent pain to the hands and feet. Sometimes associated with swelling and stiffness. Rheumatologic History: +RF++CCP dx around 1999 gold salts. Not tolerated Methotrexate not tolerated Arava ineffective Hydroxychloroquine not tolerated Remicade for 3 months, left foot osteomyelitis SSZ around 2018 partially effective. stopped 10/2023 could not tolerate s/e Initial history with Dr. Mccollum: This is an 82-year-old female who presents for evaluation of rheumatoid arthritis. Patient presents with her daughter. She has a poor historian. She stated that she was diagnosed with RA in her 60s. She states that she has been on different medicines and usually they would be discontinued due to a side effect. Currently she has been on sulfasalazine 1000 mg Twice daily since around 2018. Prescribed by Dr. Salazar and continued by her PCP. Arava was ineffective. She could not tolerate methotrexate and hydroxychloroquine. She developed right foot osteomyelitis once after Remicade was started. She states that she has diffuse pain. She has pain in her hands, her neck, shoulders, back, knees. She stated that she had reconstructive surgery for her right foot years ago. She gets periodic gel injections for both knees every 6 months. 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 The prescription dates back to 2006. She takes it as needed and it is helpful She has a history of blood clot and is on Eliquis regularly. Most recent DVT was around 9 years ago. Patient also has history of COPD. She uses 2 L of oxygen as needed. She never smoked. She also has history of obstructive sleep apnea and uses a CPAP. She is unaware of any family history of an autoimmune rheumatic disease. Current Rheumatology Medication(s): Minocycline 100 mg b.i.d. [facility] Medical History Ankle pain, right Hypokalemia LILY (obstructive sleep apnea) (HFpEF) heart failure with preserved ejection fraction Depression Physical deconditioning Cervical radiculopathy due to degenerative joint disease of spine Venous insufficiency Recurrent pulmonary embolism Diabetes Hyperlipidemia Hemorrhoids Obesity Rheumatoid arthritis COPD (chronic obstructive pulmonary disease) Atrial fibrillation Hypertension Surgical History History of carpal tunnel syndrome History of surgery Family History Father No problems noted. Mother No problems noted. Social History Household Members: Family Housing: House Do you presently have visiting nurse or other home services: No Alcohol intake: never Patient Tobacco Use Status: Never used Tobacco e-Cigarette/Vaping Use: Never Used service: No Current occupational status: retired Cognitive needs: No Hearing needs: No Vision needs: Yes Review of Systems Const Details: Review of Systems Constitutional: Denies fever, chills, weight loss ENT: Denies vision changes, eye pain or eye redness, dental caries, dry mouth GI: Denies nausea, vomiting, diarrhea, abdominal pain, change in BM Pulm: Denies SOB, RODRIGUEZ, hemoptysis, wheezing Cards: Denies chest pain, palpitations Skin: Denies Raynaud's, rash, nail changes, photosensitivity, TOE SEWER: Denies headaches, weakness, paresthesias, recurrent falls MSK: as per HPI All other systems reviewed and are unremarkable except noted above Physical Exam Vital Signs: Last Vital Signs Pulse 79 08/24/24 08:00 BP 122/72 08/24/24 08:00 Pulse Ox 94 08/24/24 08:00 Oxygen Delivery Method Room Air 08/24/24 08:00 BMI result Body Mass Index 38.1 Vital signs reviewed Physical Examination CONSTITUITIONAL Patient alert and cooperative. Well appearing and in no apparent painful distress HEENT Conjunctiva and sclera clear. ?Pupils equal round and reactive to light. ?No lymphadenopathy. ? CHEST/RESPIRATORY SYSTEM Normal respiratory effort and able to speak in complete sentences. ?Clear to auscultation bilaterally. ?No crackles, rales, rhonchi, wheezes heard. CARDIAC SYSTEM Regular rate and rhythm. ?S1 and S2 heard no murmurs. ?Radial pulses intact bilaterally MSK Hands: ?Able to make a fist. Very prominent Lorarine's and Heberden nodes throughout bilateral hands. Mild tenderness to palpation of sole of the Lorraine's nodes but no synovitis. Synovial hypertrophy noted to the MCPs particularly the 2nd and 3rd MCPs bilaterally but no tenderness to palpation. Squaring of the 1st CMC. Wrists: ?Full range of motion at the wrists without pain. ?No tenderness to palpation or synovitis noted to the wrists. Elbows: Full range of motion without pain. No tenderness, weakness, swelling, increased warmth or erythema. Shoulders: Reduced active range of motion to the right shoulder with shoulder abduction up to 90 degrees however full passive range of motion past the 90 degrees to a full 180. This was associated with some discomfort but no point tenderness to palpation anywhere. Full active range of motion to the left shoulder. No tenderness, weakness, swelling, increased warmth or erythema. Knees: ?Full range of motion. ?No tenderness, swelling, increased warmth or erythema.? Bilateral crepitations felt Ankles: Full range of motion. ?No tenderness, swelling, increased warmth or erythema.? Hyperpigmentation consistent with lipodermatosclerosis bilaterally Feet: ?Left foot with hammertoe deformities and bunions at the 1st and 5th MTP. Right foot with bunions to the 1st and 5th MTP but no deformities. Tender points:?No tenderness to palpation of the bilateral trapezius, supraspinatus, greater trochanters, anterior costochondral junctions, bilateral gluteal areas, bilateral suboccipital muscle insertions SKIN Skin intact without rashes. Results Reviewed Results Reviewed: Laboratory Tests 06/17/21 09/16/23 02/11/24 08:26 13:45 11:47 WBC RBC Hgb Hct ESR Sodium Potassium Chloride Carbon Dioxide BUN Creatinine Uric Acid 13.6 H 9.1 H 9.9 H AST ALT Alkaline Phosphatase C-Reactive Protein 0.42 06/23/24 10:40 WBC 5.4 RBC 4.69 Hgb 14.5 Hct 45.2 ESR 21 H Sodium 140 Potassium 4.5 Chloride 99 Carbon Dioxide 30 H BUN 18 H Creatinine 0.82 Uric Acid AST 26 ALT 15 Alkaline Phosphatase 88 C-Reactive Protein 0.93 H Laboratory Tests 06/17/21 09/16/23 08:26 13:45 Rheumatoid Factor < 15.0 Cycl Citrul Peptide IgG <16 JANN Screen POSITIVE A JANN Titer 1:40 H Assessment & Plan Assessment & Plan (1) Rheumatoid arthritis: Comment: -ve RF-ve CCP deforming dx around 1999 gold salts. Not tolerated Methotrexate not tolerated Arava ineffective Hydroxychloroquine not tolerated Remicade for approx 3 months, left foot osteomyelitis SSZ around 2018 DC 10/2023 ineffective Minocycline 10/2023 At least partially effective Code(s): M06.9 - Rheumatoid arthritis, unspecified Category: Medical Qualifiers: Rheumatoid arthritis location: multiple sites Rheumatoid factor presence: with rheumatoid factor Qualified Code(s): M05.79 - Rheumatoid arthritis with rheumatoid factor of multiple sites without organ or systems involvement Plan: #Seronegative erosive RA The patient is an 83-year-old female with a longstanding history of a seronegative erosive rheumatoid arthritis, this is now complicated by significant osteoarthritis in the hands as evidenced by Lorraine's and Heberden nodes throughout. It is very difficult to differentiate between RA and OA type pain. On exam today I do not see any active synovitis and so this leads me to believe that the pain that she is experiencing is more so from the OA than the RA. Her inflammatory markers have trended down in May on the most recent labs. Given this patient's age and all of her comorbidities in addition to the other reactions to medications we are limited with what we can help her with. She is unable to take TNF inhibitors due to her heart failure, she has a history of DVT/PE and so is unable to take MELLISSA inhibitors, history of diverticulitis and so unable to take IL 6 inhibitors and she has tried all the other conventional DMARDs and had side effects from those. Currently the minocycline is the best medication that we have at this time. We could potentially add daily anakinra injections of she gets worsening of her underlying rheumatoid arthritis but I think for now we will continue the minocycline 100 mg twice a day and continued to revisit her symptoms Plan - Minocycline 100mg bid - RTC 3 months - Labs before visit: CBC, CMP, ESR, CRP (2) Generalized osteoarthritis: Code(s): M15.9 - Polyosteoarthritis, unspecified Category: Medical Plan: #Polyarticular OA Patient with polyarticular osteoarthritis. Currently gets gel injections from Orthopedics every 6 months. I do believe that her hand osteoarthritis is a significant cause of her pain and so I want to maximize therapy for her hand osteoarthritis today. 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 Risks and benefits of minocycline in the management of patient's rheumatoid arthritis discussed with the patient Risks include GI upset including diarrhea and nausea Benefits include improved disease control Plan I spent 37 minutes reviewing the record and labs, taking a history, examining the patient, discussing the treatment plan, ordering diagnostic work up and documenting in the medical record Orders: Orders Erythrocyte Sedimentation Rate 3 Months M05.79 - Rheumatoid arthritis with rheumatoid factor of multiple sites without organ or systems involvement Complete Blood Count Auto Diff 3 Months M0. - Rheumatoid arthritis with rheumatoid factor of multiple sites without organ or systems involvement Comprehensive Met. Panel 3 Months . - Rheumatoid arthritis with rheumatoid factor of multiple sites without organ or systems involvement C Reactive Protein 3 Months M05.79 - Rheumatoid arthritis with rheumatoid factor of multiple sites without organ or systems involvement Medications: New tramadol 100 mg PO TID 30 days 90 tabs 5RF M15.9 - Polyosteoarthritis, unspecified minocycline 100 mg PO BID 180 caps 1RF M05.79 - Rheumatoid arthritis with rheumatoid factor of multiple sites without organ or systems involvement diclofenac sodium 1% (Arthritis Pain (diclofenac)) apply to bilateral hands 4 times a day 4 grams topical QID 100 grams 5RF M15.9 - Polyosteoarthritis, unspecified Changed From gabapentin 300 mg PO BID 180 caps 3RF M15.9 - Polyosteoarthritis, unspecified To gabapentin 300 mg PO TID 90 days 270 caps 1RF M15.9 - Polyosteoarthritis, unspecified Discontinued tramadol Discontinued Reason: Doctor's Order 50 mg PO TID PRN 90 tabs 3RF pain Coding Level of Care Code Est Pt Level 4 (36945) Complex EM visit Add On G2211 Diagnoses Rheumatoid arthritis involving multiple sites with positive rheumatoid factor M05.79 Rheumatoid arthritis location: multiple sites Rheumatoid factor presence: with rheumatoid factor Generalized osteoarthritis M15.9 custodial use of minocycline Z79.2
--- OUTSIDE RECORDS SUMMARY | 2024-08-24 08:00 | XMS_ITS | Patient Health Record ---
Author Organization [facility] Address [address] [place] [address] Care Team Providers Care Electronics Tech Name Role Phone Salud Lester MD Primary Care Provider Unavaila Arsh Rincon Unavailable [phone] Reason For Referral No Information Encounters Encounter Location Date Provider Diagnosis [facility] [address] [place] [address] 11/12/2023 [facility] Plan Of Treatment No Information Insurance Providers Payer Name Payer Address Payer Phone Subscriber Number Group Number Insured Name Patient Relationship to Insured Coverage Start Date Coverage End Date Medicare [facility] [address] [place] [address] [id number] Camille Andrade Self - patient is the insured
== END 2024-08-24 08:56 | disposition home or self-care (01) ==
LOC: HO.RHE 07:56
PROVIDERS: PCP Internal Medicine; Visit Provider Student in an Organized Health Care Education/Training Program
DX: M05.79 Rheumatoid arthritis with rheumatoid factor of multiple sites without organ or systems involvement (principal); M15.9 Polyosteoarthritis, unspecified; Z79.2 Long term (current) use of antibiotics
CPT/HCPCS: 99214; G2211

== ENCOUNTER → 2024-08-24 07:55 | Outpatient (BNVA) | payer MEDICARE, MEDICAID, SELFPAY | PROVIDERS: PCP Internal Medicine; Visit Provider Student in an Organized Health Care Education/Training Program | DX: M05.79 Rheumatoid arthritis with rheumatoid factor of multiple sites without organ or systems involvement (principal); M15.9 Polyosteoarthritis, unspecified; Z79.2 Long term (current) use of antibiotics | CPT/HCPCS: 99212 ==

== ENCOUNTER 2024-09-25 08:28 | Outpatient (AMB) | payer MEDICARE, MEDICAID, SELFPAY ==
--- NOTE | 2024-09-25 08:53 | MHC.OFFVIS ---
Intake Visit Reasons: 1yr/MRI Intake Note: Patient presents today for a 1 year follow up/MRI Urology Meds- None Allergies to Antibiotic- Cipro & Moxifloxacin Blood Thinner- Eliquis PVR:0ml Satellite Tv Technician Installer Required: No Accompanied by: Daughter Allergies atorvastatin [From Lipitor] Allergy (Unknown, Verified 09/25/24 09:07) Leg cramps ciprofloxacin [From Cipro] Allergy (Unknown, Verified 09/25/24 09:07) Stomach Upset ezetimibe [From Zetia] Allergy (Unknown, Verified 09/25/24 09:07) leg cramps hydrochlorothiazide [From Avalide] Allergy (Unknown, Verified 09/25/24 09:07) Stomach Upset infliximab [From Remicade] Allergy (Unknown, Verified 09/25/24 09:07) Infection irbesartan [From Avalide] Allergy (Unknown, Verified 09/25/24 09:07) Stomach Upset metformin Allergy (Unknown, Verified 09/25/24 09:07) nausea moxifloxacin [From Avelox] Allergy (Unknown, Verified 09/25/24 09:07) Stomach Upset nifedipine Allergy (Unknown, Verified 09/25/24 09:07) upset stomach pravastatin Allergy (Unknown, Verified 09/25/24 09:07) stomach upset rosuvastatin [From Crestor] Allergy (Unknown, Verified 09/25/24 09:07) Leg cramps terazosin [From Hytrin] Allergy (Unknown, Verified 09/25/24 09:07) Stomach Upset valsartan [From Diovan] Allergy (Unknown, Verified 09/25/24 09:07) Stomach Upset warfarin [WARFARIN] Allergy (Unknown, Verified 09/25/24 09:07) Anaphylaxis Medication List - Last Reconciled 09/25/24 by Jose العلي MD acetaminophen 1,000 mg PO BID acetaminophen ER (Tylenol 8 Hour) 1,300 mg PO Q8H albuterol sulfate 0.63 mg (3 mL) inhalation Q4-6H PRN apixaban (Eliquis) 5 mg PO BID blood sugar diagnostic As directed blood sugar diagnostic (FreeStyle Test strips) check glucose once a day blood-glucose meter As directed compr.stocking,knee,long,x-lrg 10-20 mmHg diltiazem HCl ER 240 mg PO DAILY Farxiga (dapagliflozin propanediol) 5 mg PO DAILY NS fluticasone furoate-vilanterol 100-25 mcg/dose (Breo Ellipta) 1 inh inhalation DAILY folic acid 1 mg PO DAILY furosemide 40 mg PO BID gabapentin 300 mg PO TID 90 days glipizide 5 mg PO DAILY hospital bed As directed incontinence pad, liner, disp As directed levothyroxine 50 mcg PO QAM lisinopril 5 mg PO BID meclizine 25 mg PO DAILY PRN pantoprazole 40 mg PO DAILY@0600 potassium chloride ER 20 mEq (2 x 10 mEq) PO DAILY Shower Chair As directed tiotropium bromide (Spiriva with HandiHaler) 1 cap inhalation DAILY tramadol 100 mg PO TID 30 days HPI Comments Details: 09/25/24--Camille is an 83-year-old female who presents today follow up evaluation of left renal mass. Reviewed repeat MRI 06/01/2024--stable 1.7 cm solid renal mass in the mid pole of the left kidney. The patient is here with her daughter who interprets for her. Again discussed today was option for cryoablation due to size of tumor. The patient declines. The patient states that she continues on Eliquis blood thinner and diabetic medication. The daughter states she also has an ovarian cyst that is being monitored. Also discussed were incidental results on MRI noting cholecystitis versus patient denies any right upper quadrant pain. Plan renal ultrasound in 8 months. 07/12/23-- Camille is an 82-year-old female who presents today follow up evaluation of renal mass. Reviewed repeat MRI 07/08/2023--Compared to most recent MRI from 11/27/2022, stable 1.7 cm solid renal mass in the mid pole of the left kidney. 01/14/2023? The patient presents with her daughter her as a new patient for an evaluation of renal mass. She has past medical history significant for diabetes, and atrial fibrillation. She is on Eliquis 5 mg BID. She reports dysuria and back pain. She has urinary incontinence and wears pads. She denies any history of cigarette smoking. I have reviewed the results of renal US from 10/12/2022 revealed cm hypoechoic lobulated region of the midpole cortex of the left kidney. This is a nonspecific finding. I have reviewed the results of the MRI of the abdomen from 11/27/2022 revealed a solid enhancing partially exophytic mass posterior mid pole of the left kidney measuring 1.6x1.6cm, 1.4 cm upper pole right renal cyst was noted. 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 Evaluation today-- UA--leukocytes: trace; blood: negative. Plan:Discussed conservative management to include monitoring the kidney mass also discussed minimally invasive therapy with cryoablation. The patient wants to follow the lesion at this point and agrees with MRI in 6 months. [facility] Medical History Ankle pain, right Hypokalemia LILY (obstructive sleep apnea) (HFpEF) heart failure with preserved ejection fraction Depression Physical deconditioning Cervical radiculopathy due to degenerative joint disease of spine Venous insufficiency Recurrent pulmonary embolism Diabetes Hyperlipidemia Hemorrhoids Obesity Rheumatoid arthritis COPD (chronic obstructive pulmonary disease) Atrial fibrillation Hypertension Surgical History History of carpal tunnel syndrome History of surgery Family History Father No problems noted. Mother No problems noted. Social History Household Members: Family Housing: House Do you presently have visiting nurse or other home services: No Alcohol intake: never Patient Tobacco Use Status: Never used Tobacco e-Cigarette/Vaping Use: Never Used service: No Current occupational status: retired Cognitive needs: No Hearing needs: No Vision needs: Yes Review of Systems Const All systems reviewed & are unremarkable except as noted in HPI and below Reports no additional complaints Eyes Reports no additional complaints ENT Reports no additional complaints Card Reports no additional complaints Resp Reports no additional complaints GI Reports no additional complaints Reports as per HPI Musc Reports no additional complaints Skin/Breast Reports system reviewed and no additional complaints, except as documented Neuro Reports no additional complaints Psych Reports no additional complaints Endo Reports no additional complaints Delfino/Lymph Reports no additional complaints Aller/Immun Reports no additional complaints Results Reviewed Results Reviewed: -Date of Service: 06/01/24 EXAMINATION: MRI Abdomen without and with contrast HISTORY: N28.89 - Other specified disorders of kidney and ureter COMPARISON: None TECHNIQUE: Axial in and out of phase T1-weighted gradient echo, axial diffusion weighted, and axial and coronal haste T2 with fat saturation images were obtained through the abdomen. Subsequently, fat suppressed axial and coronal T1-weighted images were obtained after the intravenous administration of 10 mL Gadavist. FINDINGS: No significant loss of signal intensity is seen in the liver on opposed phase imaging to suggest steatosis. There is no enhancing liver mass. The hepatic and portal veins are patent. There is no intra or extrahepatic biliary ductal dilatation. There are numerous calculi in the gallbladder. The spleen is unremarkable in appearance. There is a small splenule noted adjacent to the pancreatic tail. The pancreas and adrenals are unremarkable. Again seen is a 1.5 cm cyst at the upper pole of the right kidney. Again seen is an enhancing exophytic mass in the interpolar region of the left kidney measuring 1.7 cm in diameter, similar to the prior study. There is no hydronephrosis. No retroperitoneal lymphadenopathy or ascites is identified in the upper abdomen. IMPRESSION: 1. Stable exophytic 1.7 cm enhancing mass in the interpolar region of the left kidney. Date of Service: 07/08/23 EXAMINATION: MR ABDOMEN WITHOUT AND WITH CONTRAST CLINICAL INFORMATION: Follow-up left renal mass. COMPARISON: Abdominal MRI 11/27/2022. TECHNIQUE: MR abdomen was performed without and with use of 10 mL intravenous Gadavist gadolinium contrast. Postcontrast images are performed in multiphase dynamic sequences. Imaging was performed in 3 planes. FINDINGS: Evaluation is limited secondary to patient body habitus, coil artifact from respiratory motion. LUNG BASES: Partially imaged cardiomegaly. LIVER, GALLBLADDER, AND BILIARY TREE: The uppermost portion of the liver was not included within the field of view of the axial images, limiting evaluation. There is signal loss in the opposed phase dual echo images in the liver consistent with hepatic steatosis. Otherwise, liver is normal in morphology and size. No liver lesion. No biliary ductal dilatation. Cholelithiasis without findings to suspect acute cholecystitis. No biliary ductal dilatation. 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 Otherwise, there is normal signal attenuation throughout the pancreatic parenchyma without evidence of main ductal dilatation nor significant peripancreatic inflammatory changes. SPLEEN: A 1.8 cm inferior splenule is unchanged. ADRENAL GLANDS: Nodularity at the apex of both adrenal glands is unchanged measuring up to 1.2 cm with drop in signal intensity in the opposed phase dual echo images consistent with adenomas, for which no imaging follow-up is recommended. KIDNEYS AND URETERS: A 1.5 x 1.7 cm solid partially exophytic mass along the posterolateral surface of the mid pole left kidney is unchanged. A 1.4 cm T2 bright avascular Bosniak 1 cyst in the upper right kidney is unchanged. No new liver lesions. Symmetric nephrograms. No hydronephrosis. GASTROINTESTINAL TRACT: Nonobstructive bowel gas pattern. No abdominal ascites or fluid collection. ABDOMINAL WALL: No significant hernia is appreciated. LYMPH NODES: No lymphadenopathy. VASCULAR: Normal caliber abdominal aorta. OSSEOUS STRUCTURES: Degenerative changes of the spine. No acute or aggressive appearing osseous findings. ADDITIONAL FINDINGS: Only visualized on the large [id number] T2 coronal and sagittal images (series 3 and series 5) there is a 5.5 cm well-defined, homogeneous T2 bright cystic appearing lesion in the right adnexa, possibly originating from the right ovary which is increased in size from 4.5 cm. IMPRESSION: 1. Compared to most recent MRI from 11/27/2022, stable 1.7 cm solid renal mass in the mid pole of the left kidney. 2. Compared to 11/27/2022, increased size of a cystic appearing lesion projecting over the region of the right adnexa, incompletely characterized in this examination. Recommend further characterization with dedicated transabdominal and transvaginal pelvic ultrasound. 3. Hepatic steatosis. 4. Cholelithiasis without findings to suspect acute cholecystitis. Assessment & Plan Assessment & Plan (1) Left kidney mass: Code(s): N28.89 - Other specified disorders of kidney and ureter Category: Medical Plan Reviewed repeat MRI 06/01/2024--stable 1.7 cm solid renal mass in the mid pole of the left kidney. The patient is here with her daughter who interprets for her. Again discussed today was option for cryoablation due to size of tumor. The patient declines. The daughter states the patient also has an ovarian cyst that is being monitored. Plan renal ultrasound in 8 months. Orders: Orders US renal BI 8 Months N28.89 - Other specified disorders of kidney and ureter Patient Instructions: The patient had an opportunity to ask questions regarding treatment plan. The patient expressed understanding and agreement with the above treatment plan. The patient is aware they should contact our office by phone for worsening of their current condition or the appearance of new symptoms. Compliance is encouraged with any medications and followup testing that is ordered. It is a privilege to be allowed the opportunity to participate in the urologic care of your patient. If you have any questions or concerns regarding treatment for the above conditions please do not hesitate to contact me. The office telephone contact is [phone]. This note is constructed in part using voice recognition software. While every effort has been made to ensure accuracy data collection specialist errors may have been included. Yours sincerely, Jose العلي MD Coding Level of Care Code Est Pt Level 4 (79499) Diagnoses Left kidney mass N28.89
--- OUTSIDE RECORDS SUMMARY | 2024-09-25 08:53 | XMS_ITS | Encounter Summary ---
Author Organization [facility] Address [address] [place] [address] Care Team Providers Care Factory Clerk Name Role Phone Salud Lester MD Primary Care Provider Arnulfo Mccollum MD Unavailable [phone] Laura Palma NP Unavailable + [phone] Encounter Details Date Type Department Care Team Description 11/27/2019 Telephone Gastroenterology - [address] [place] [address] Hoa Sewell, ReneaPAS Social History [...] on filedocumented in this encounter Care Teams Factory Clerk Relationship Specialty Start Date End Date Salud Lester MD PCP - General Internal Medicine 03/29/18 Arnulfo Wilks MD [address] [place], [place] [phone] Specialist Cardiovascular Disease 08/22/20 Laura Palma, SIDRA [address] [place] [address] Cardiology 08/22/20 documented as of this encounter
--- OUTSIDE RECORDS SUMMARY | 2024-09-25 08:53 | XMS_ITS | Encounter Summary ---
Author Organization [facility] Address [address] [place] [address] Care Team Providers Care Guest Laundry Attendant Name Role Phone Salud Lester MD Primary Care Provider Arnulfo Mccollum MD Unavailable [phone] Laura Palma NP Unavailable + [phone] Reason for Visit * Reason Onset Date Comments Medication 08/14/2020 incoming fax fro barbara Wood; Diltiazem Encounter Details Date Type Department Care Team Description 08/14/2020 Refill Cardio PVC POC [address] [facility] [address] [place] [address] Laura Palma, REPRODUCTION ARTIST [address] [place] [phone] Medication (incoming fax from [place]; Diltiazem) Social History Tobacco Use Types Packs/Day Years Used Date Smoking Tobacco: Never Smokeless Tobacco: Never Alcohol Use Standard Drinks/Week Comments No 0 (1 standard drink = 0.6 oz pur e alcohol) Sex Assigned at Date Recorded Not on file documented as of this encounter Miscellaneous Notes * Telephone Encounter - Fatuma Reyes C.M.A. - 08/14/2020 10:17 AM EDT Erx for Ana schaefer documented in this encounter Plan of Treatment Not on file documented as of this encounter Visit Diagnoses Not on filedocumented in this encounter Care Teams Guest Laundry Attendant Relationship Specialty Start Date End Date Salud Lester MD PCP - General Internal Medicine 03/29/18 Arnulfo Wilks MD [address] [place], [place] [phone] Specialist Cardiovascular Disease 08/22/20 Laura Palma NP [address] [place] [address] Cardiology 08/22/20 documented as of this encounter
--- OUTSIDE RECORDS SUMMARY | 2024-09-25 08:53 | XMS_ITS | Encounter Summary ---
Author Organization [facility] Address [address] [place] [address] Care Team Providers Care Section Cutter Name Role Phone Salud Lester MD Primary Care Provider Arnulfo Mccollum MD Unavailable [phone] Laura Palma NP Unavailable [phone] Reason for Visit * Reason Onset Date Comments Hospital Procedure 10/16/2020 Sotalol Load/ RAUL/Afib Ablation Encounter Details Date Type Department Care Team Description 10/16/2020 Telephone Cardio PVC POC 154 300 [facility] [address] [place] [address] Daina Chaney MD 300 [facility] [address] [place], [place] [phone] Hospital Procedure (Sotalol Load/RAUL/Afib Ablation) Social History [...] load on a Wednesday 6.. and have it professional doctor monitor the patient over the weekend [...] on filedocumented in this encounter Care Teams Section Cutter Relationship Specialty Start Date End Date Salud Lester MD PCP - General Internal Medicine 03/29/18 Arnulfo Wilks MD [address] [place] [id number] Specialist Cardiovascular Disease 08/22/20 Laura Palma NP [address] [place] [address] Cardiology 08/22/20 documented as of this encounter
--- OUTSIDE RECORDS SUMMARY | 2024-09-25 08:53 | XMS_ITS | Encounter Summary ---
Author Organization [facility] Address [address] [place] [address] Care Team Providers Care Shovel Loader Operator Name Role Phone Salud Lester MD Primary Care Provider Geoffrey Arnulfo Sheldon MD Unavailable [phone] Laura Palma NP Unavailable [phone] Encounter Details Date Type Department Care Team Description 05/04/2018 Transfer Records Medical Records [address] [place] [id number] Abstract, Provider Social History Tobacco Use Types [...] on filedocumented in this encounter Care Teams Shovel Loader Operator Relationship Specialty Start Date End Date Salud Lester MD PCP - General Internal Medicine 03/29/18 Arnulfo Wilks MD [address] [place] [address] Specialist Cardiovascular Disease 08/22/20 Laura Palma NP [address] [place] [address] Cardiology 08/22/20 documented as of this encounter
--- OUTSIDE RECORDS SUMMARY | 2024-09-25 08:53 | XMS_ITS | Clinical Summary ---
Author Organization [facility] Address [address] [facility] [place] [address] Care Team Providers Care Unmanned Equipment Operator Name Role Phone Salud Lester MD Primary Care Provider Arnulfo Mccollum MD Unavailable [phone] Laura Palma SHELL COREMAKER Unavailable [phone] Allergies Active Allergy Reactions Severity Noted Date [...] daily. 0 Active Spacer/Aero-Holding Chambers (AEROCHAMBER PLUS CNADACE-VU) Misc 0 09/28/2018 Active pantoprazole (PROTONIX) 40 MG tablet Take 40 mg by mouth daily. 0 Active pantoprazole (PROTONIX) 40 MG tablet Take 1 Tab by mouth daily. 30 Tab 5 08/14/2019 Active folic acid (FOLVITE) 1 MG tablet Take 1 mg by mouth daily. 0 Active warfarin (COUMADIN) 5 MG tablet Take 5 mg by mouth See Admin Instructions. [place] [facility] managing INR's. 0 Active furosemide [...] controlled at this time on diltiazem, continue -[id number] = 6 (age, gender, HTN, CHF, DM), [...] - Td or Tdap) 10/22/2021 10/23/2011, 10/23/2011 BMI CHECK/ADVISE 05/31/2024 INFLUENZA (Season Ended) 2025 019, 02/16/2018, 03/11/2017, Additional history exists Care Teams Unmanned Equipment Operator Relationship Specialty Start Date End Date Salud Lester MD PCP - General Internal Medicine 03/29/18 Arnulfo Wilks MD [address] [place] [phone] Specialist Cardiovascular Disease 08/22/20 Laura Palma NP [address] [place] [id number] Cardiology 08/22/20
--- OUTSIDE RECORDS SUMMARY | 2024-09-25 08:53 | XMS_ITS | Clinical Summary ---
Author Organization [address] [facility] Address [address] [place] [address] Phone Care Team Providers Care Sky Diver Name Role Phone Salud Lester MD Primary Care Provider [phone] Allergies Active Allergy Reactions Criticality Noted Date [...] Active inhaler, assist devices (AEROCHAMBER PLUS FLOW-VU [facility]) 09/28/2018 Active sulfaSALAzine (AZULFIDINE) 500 mg tablet Take 500 mg by mouth 2 times daily. 11/18/2017 Active warfarin (COUMADIN) 5 mg tablet Take 5 mg by mouth See Admin Instructions. [facility] managing INR's. Active Active Problems Problem Noted Date Diagnosed Date Aortic aneurysm ([facility] V24) 09/03/2020 Overview (04/04/2024): Last Assessment & Plan: -Dilated at 4.4 cm from July 2019 -Discussed strict blood pressure control Carotid artery disease ([facility] V24) 09/03/2020 Overview (04/04/2024): Last Assessment & Plan: -50-69% LICA disease from September 2018 -followed by Dr. Lange of [facility] Chronic atrial fibrillation ([facility] V24, [facility] V28) 09/03/2020 Overview (04/04/2024): Last Assessment & Plan: [...] controlled at this time on diltiazem, continue -[id number] = 6 (age, gender, HTN, CHF, DM), continue anticoagulation with warfarin. Risks and benefits of anticoagulation have thoroughly reviewed with the patient she verbalized understanding and agrees to continue. Bilateral bunions 09/26/2018 Diabetic polyneuropathy asso ciated with type 2 diabetes mellitus ([facility] [place], [facility] V28) 09/26/2018 Hammer toe of left foot 09/26/2018 Esophageal reflux 12/29/2017 Rheumatoid arthritis ([facility], [facility] V28) 11/18/2017 Hypertension 07/07/2016 Overview (04/04/2024): Last Assessment & Plan: 110/64 Continue diltiazem, furosemide, and lisinopril at current doses. Anxiety 04/09/2016 Paroxysmal atrial fibrillation ([facility] V24, [facility] V28) 04/09/2016 DVT (deep venous thrombosis) ([facility], [facility] V28) 04/02/2016 Diabetes mellitus type 2, un complicated ([facility]24, [facility] V28) 03/24/2016 Chronic obstructive pulmonar y disease ([facility], [facility] V28) 03/05/2016 Hyperlipidemia 03/05/2016 Pulmonary embolism ([facility], [facility] V28) Congestive heart failure ([facility] V[facility], [facility] V 28) 02/13/2016 Overview (04/04/2024): Last Assessment & Plan: [...] AM EST Office Visit Orthopedic Surgery - [address] [address] Vinny Yates, DPM Primary osteoarthritis of both feet (Primary Dx); Follow-up exam; Acquired hallux valgus of right foot; Acquired hallux valgus of left foot; Acquired hammer toe of right foot; Hammer toe of left foot; Dermatophytosis of nail; Type II diabetes mellitus with peripheral circulatory disorder ([facility] V24, [facility] V28); Metatarsalgia of both feet; Corns and callosities; [...] AM EDT Office Visit Orthopedic Surgery - [place] [address] [phone] Vinny Yates, DPM [address] [address] Health Maintenance Due Date Last Done Comments Diabetes: Annual Foot Exam 1948 Diabetes: Annual Retina Eye Exam 1950 Zoster Vaccines (1 of 2) 1988 RSV Immunization Adult Patients (1 - 1-dose 75+ series) 2013 Pneumococcal [...] age to complete this topic Meningococcal B Vaccine Aged Out No l onger eligible based on patient's age to complete [...] navicular joint to calcaneal cuboid joint ?? us Christopher M Yates DPM IMG XR PROCEDURES Final R esult * Annual BMP Blood Test (10/04/2018) Annual BMP Blood Test Abstracted us Historical Provider MD HEALTH MAINTENANCE Final Result from Last 3 Months or Most Recently Relevant to Health Maintenance Insurance MEDICARE [place]ICA[place] - [place] Care Teams Sky Diver Relationship Specialty Start Date End Date Salud Lester MD [address] [place] [address] PCP - General Internal Medicine 03/29/18
--- OUTSIDE RECORDS SUMMARY | 2024-09-25 08:53 | XMS_ITS | Encounter Summary ---
Author Organization [facility] Address [address] [facility] [place] [address] Care Team Providers Care Nuclear Equipment Test Engineer Name Role Phone Salud Lester MD Primary Care Provider Arnulfo Mccollum MD Unavailable [phone] Laura Palma NP Unavailable + [phone] Encounter Details Date Type Department Care Team Description 11/06/2019 Telephone Gastroenterology - [place] [address] [place] [address] Hoa Sewell DScPAS Social History [...] on filedocumented in this encounter Care Teams Nuclear Equipment Test Engineer Relationship Specialty Start Date End Date Salud Lester MD PCP - General Internal Medicine 03/29/18 Arnulfo Wilks MD [address] [place] [address] Specialist Cardiovascular Disease 08/22/20 Laura Palma BIRDCAGE ASSEMBLER [address] [place] [address] Cardiology 08/22/20 documented as of this encounter
--- OUTSIDE RECORDS SUMMARY | 2024-09-25 08:53 | XMS_ITS | Encounter Summary ---
Author Organization [facility] Address [address] [place] [address] Care Team Providers Care Cost Control Analyst Name Role Phone Salud Lester MD Primary Care Provider Arnulfo Mccollum MD Unavailable [phone] Laura Palma NP Unavailable [phone] Reason for Visit * Reason Onset Date Comments Jumana Special Procedure Gi 01/19/2020 endos copy Encounter Details Date Type Department Care Team Description 01/19/2020 Telephone Gastroenterology - [address] [address] Hoa Sewell DScPAS [facility] [...] daughter to schedule endoscopty - patient speak Tajik and daughter is on verbal and brings patient to office - hosp. appointment Caller offered to speak with the nurse for assistance: NO Response: Contact Soo [phone] to schedule endoscopy documented in this encounter Plan of Treatment Not on file documented as of this encounter Visit Diagnoses Not on filedocumented in this encounter Care Teams Cost Control Analyst Relationship Specialty Start Date End Date Salud Lester MD PCP - General Internal Medicine 03/29/18 Arnulfo Wilks MD [address] [place] [address] Specialist Cardiovascular Disease 08/22/20 Laura Palma NP [address] [place] [address] Cardiology 08/22/20 documented as of this encounter
--- OUTSIDE RECORDS SUMMARY | 2024-09-25 08:53 | XMS_ITS | Encounter Summary ---
Author Organization [facility] Address [address] [facility] [address] Care Team Providers Care Roller Coaster Designer Name Role Phone Salud Lester MD Primary Care Provider Arnulfo Mccollum MD Unavailable [phone] Laura Palma NP Unavailable [phone] Encounter Details Date Type Department Care Team Description 06/15/2018 [facility] [address] [place] [phone] Hoa Sewell, DScPAS Social History Tobacco Use [...] on filedocumented in this encounter Care Teams Roller Coaster Designer Relationship Specialty Start Date End Date Salud Lester MD PCP - General Internal Medicine 03/29/18 Arnulfo Wilks MD [address] [place] [address] Specialist Cardiovascular Disease 08/22/20 Laura Palma NP [address] [place] [address] Cardiology 08/22/20 documented as of this encounter
--- OUTSIDE RECORDS SUMMARY | 2024-09-25 08:53 | XMS_ITS | Encounter Summary ---
Author Organization [facility] Address [address] [place] [address] Care Team Providers Care Auto Bumper Mechanic Name Role Phone Salud Lester MD Primary Care Provider Arnulfo Mccollum MD Unavailable [phone] Laura Palma NP Unavailable [phone] Encounter Details Date Type Department Care Team Description 09/10/2020 Ferryboat Pilot Report Medical Records [address] [place] [address] AkshatAnton fitzpatrickcecy Social History Tobacco Use Types [...] on filedocumented in this encounter Care Teams Auto Bumper Mechanic Relationship Specialty Start Date End Date Salud Lester MD PCP - General Internal Medicine 03/29/18 Arnulfo Wilks MD [address] [place] [address] Specialist Cardiovascular Disease 08/22/20 Laura Palma NP [address] [place] [address] Cardiology 08/22/20 documented as of this encounter
--- OUTSIDE RECORDS SUMMARY | 2024-09-25 08:53 | XMS_ITS | Encounter Summary ---
Author Organization [facility] Address [address] [place] [address] Care Team Providers Care Alternative Education Teacher Name Role Phone Salud Lester MD Primary Care Provider Arnulfo Mccollum MD Unavailable Laura Palma NP Unavailable [phone] Reason for Visit * Reason Onset Date Comments refill request 08/10/2019 Encounter Details Date Type Department Care Team Description 08/10/2019 Refill Gastroenterology - [address] [address] Hoa Sewell DScPAS refill request [...] MED LIST AND IS IDENTIFIED BELOW): {MED LIST:83416) Med name: Pantoprazole sod Dosage: 40 mg [...] on filedocumented in this encounter Care Teams Alternative Education Teacher Relationship Specialty Start Date End Date Salud Lester MD PCP - General Internal Medicine 03/29/18 Arnulfo Wilks MD [address] [place] [address] [place] [address] Specialist Cardiovascular Disease 08/22/[address] NP [address] [place] [address] Cardiology 08/22/20 documented as of this encounter
--- OUTSIDE RECORDS SUMMARY | 2024-09-25 08:53 | XMS_ITS | Encounter Summary ---
Author Organization [facility] Address [address] [place] [address] Care Team Providers Care Template Checker Name Role Phone Salud Lester MD Primary Care Provider Geoffrey Arnulfo Sheldon MD Unavailable [phone] Laura Palma NP Unavailable + [phone] Encounter Details Date Type Department Care Team Description 10/15/2020 Desilverizer Report Medical Records [address] [place] [address] Abstract, Provider Social History Tobacco Use Types [...] on filedocumented in this encounter Care Teams Template Checker Relationship Specialty Start Date End Date Salud Lester MD PCP - General Internal Medicine 03/29/18 Arnulfo Wilks MD [address] [place] [address] Specialist Cardiovascular Disease 08/22/20 Laura Palma NP [address] [place] [address] Cardiology 08/22/20 documented as of this encounter
--- OUTSIDE RECORDS SUMMARY | 2024-09-25 08:53 | XMS_ITS | Encounter Summary ---
Author Organization [facility] Address [address] [place] [address] Care Team Providers Care Display Designer Name Role Phone Salud Lester MD Primary Care Provider Arnulfo Mccollum MD Unavailable [phone] Laura Palma NP Unavailable +- [phone] Encounter Details Date Type Department Care Team Description 04/15/2021 Digital Campaign Specialist Report Medical Records [address] [place] [address] AkshatAnton fitzpatrickcecy Social History Tobacco Use Types [...] on filedocumented in this encounter Care Teams Display Designer Relationship Specialty Start Date End Date Salud Lester MD PCP - General Internal Medicine 03/29/18 Arnulfo Wilks MD [address] [place] [address] Specialist Cardiovascular Disease 08/22/20 Laura Palma NP [address] [place] [address] Cardiology 08/22/20 documented as of this encounter
--- OUTSIDE RECORDS SUMMARY | 2024-09-25 08:53 | XMS_ITS ---
Author Organization [facility] Address [address] [place] [address] Care Team Providers Care [employer] Professor Name Role Phone Trevon PINEDA, Salud Primary Care Provider Unavaila Arsh Rincon Unavailable [phone] Encounters Encounter [facility] Date [facility] [address] [place] [phone] 12/20/2023 Arsh West Plan Of Treatment No Information Progress Notes * Camille GUZMANDOB:1940 (83 yo F)Acc No.[id number]:12/20/2023 Progress Notes Patient:?TIMKELLENNenoCamille Provider:?Arsh West DPM :1940???Age:82 Y???Sex:Female D ate:12/20/2023 Address: [id number] Pcp:Salud Lester MD Subjective: * Chief Complaints: [...] West DPM Date:?2023 Generated for Linda shin/Reynaldo/eTransmitting on:?09/25/2024 08:53 AM EDT
--- OUTSIDE RECORDS SUMMARY | 2024-09-25 08:54 | XMS_ITS ---
Author Organization [facility] Address [address] [place] [address] Care Team Providers Care Groover Operator Name Role Phone Salud Lester MD Primary Care Provider Unavaila Arsh Rincon Unavailable [phone] REASON FOR VISIT cx appt 12/20/23 Encounters Encounter Location Date Provider Diagnosis [facility] [address] [place] [address] 11/12/2023 [facility] Plan Of Treatment No Information Progress Notes * Camille ANDRADEDOB:1940 (82 yo F)Acc No.[id number]:11/12/2023 Patient:?Camille Andrade :1940???Age:82 Y???Sex:Female Address: [place] [address] * true * Date:? Generated for Adalbertoi kip/Reynaldo/eTransmitting on:?09/25/2024 08:53 AM EDT
--- OUTSIDE RECORDS SUMMARY | 2024-09-25 08:54 | XMS_ITS | Patient Health Record ---
Author Organization [facility] Address [address] [place] [address] Care Team Providers Care Entrepreneurial Finance Professor Name Role Phone Salud Lester MD Primary Care Provider Unavaila Arsh Rincon Unavailable [phone] Reason For Referral No Information Encounters Encounter Location Date Provider Diagnosis [facility] [address] [place] [address] 11/12/2023 [facility] Plan Of Treatment No Information Insurance Providers Payer Name Payer Address Payer Phone Subscriber Number Group Number Insured Name Patient Relationship to Insured Coverage Start Date Coverage End Date Medicare National [facility] [address] [place] [address] [id number] Camille Andrade Self - patient is the insured
--- OUTSIDE RECORDS SUMMARY | 2024-09-25 08:54 | XMS_ITS | Encounter Summary ---
Author Organization [facility] Address [address] [place] [address] Care Team Providers Care Data Processing Manager Name Role Phone Salud Lester MD Primary Care Provider Arnulfo Mccollum MD Unavailable [phone] Laura Palma NP Unavailable [phone] Encounter Details Date Type Department Care Team Description 03/24/2019 Orders Only Medical Records [address] [place] [address] Abstract, Provider Epigastric abdominal pain; Chronic nausea; [...] reflux documented in this encounter Care Teams Data Processing Manager Relationship Specialty Start Date End Date Salud Lester MD PCP - General Internal Medicine 03/29/18 Arnulfo Wilks MD [address] [place] [address] [place] [id number] Specialist Cardiovascular Disease 08/22/20 Laura Palma NP [address] [place] [address] Cardiology 08/22/20 documented as of this encounter
== END 2024-09-25 09:45 | disposition home or self-care (01) ==
LOC: HO.HUSH 08:29
PROVIDERS: PCP Internal Medicine; Visit Provider Urology
DX: Z13.9 Encounter for screening, unspecified (principal); N28.89 Other specified disorders of kidney and ureter
CPT/HCPCS: 99214

== ENCOUNTER → 2024-09-25 08:28 | Outpatient (BNVA) | payer MEDICARE, MEDICAID, SELFPAY | PROVIDERS: PCP Internal Medicine; Visit Provider Urology | DX: N28.89 Other specified disorders of kidney and ureter (principal) | CPT/HCPCS: 81003; 99212 ==

== ENCOUNTER 2024-10-17 13:39 | Outpatient (REF) | payer MEDICARE, MEDICAID, SELFPAY ==
--- OUTSIDE RECORDS SUMMARY | 2024-10-17 16:12 | XMS_ITS | Encounter Summary ---
Author Organization [facility] Address [address] [place] [address] Care Team Providers Care Early Childhood Lead Teacher Name Role Phone Salud Lester MD Primary Care Provider Arnulfo Mccollum MD Unavailable [phone] Laura Palma NP Unavailable [phone] Reason for Visit * Reason Onset Date Comments Hospital Procedure 10/16/2020 Sotalol Load/ RAUL/Afib Ablation Encounter Details Date Type Department Care Team Description 10/16/2020 Telephone Cardio PVC POC 154 300 [facility] [address] [place] [address] Daina Chaney MD 300 [facility] [address] [place], [place] [phone] Hospital Procedure (Sotalol Load/RAUL/Afib Ablation) Social History [...] load on a Wednesday 6.. and have recreation program coordinator doctor monitor the patient over the weekend [...] on filedocumented in this encounter Care Teams Early Childhood Lead Teacher Relationship Specialty Start Date End Date Salud Lester MD PCP - General Internal Medicine 03/29/18 Arnulfo Wilks MD [address] [place] [address] Specialist Cardiovascular Disease 08/22/20 Laura Palma NP [address] [place] [address] Cardiology 08/22/20 documented as of this encounter
--- OUTSIDE RECORDS SUMMARY | 2024-10-17 16:12 | XMS_ITS | Encounter Summary ---
Author Organization [facility] Address [address] [place] [address] Care Team Providers Care Transmitter Engineer In Charge Name Role Phone Salud Lester MD Primary Care Provider Arnulfo Mccollum MD Unavailable [phone] Laura Palma NP Unavailable [phone]- [phone] Encounter Details Date Type Department Care Team Description 04/15/2021 Assembly Cleaner Report Medical Records [address] [place] [address] AkshatAnton fitzpatrickcecy Social History Tobacco Use Types [...] on filedocumented in this encounter Care Teams Transmitter Engineer In Charge Relationship Specialty Start Date End Date Salud Lester MD PCP - General Internal Medicine 03/29/18 Arnulfo Wilks MD [address] [place] [address] Specialist Cardiovascular Disease 08/22/20 Laura Palma NP [address] [place] [address] Cardiology 08/22/20 documented as of this encounter
--- OUTSIDE RECORDS SUMMARY | 2024-10-17 16:13 | XMS_ITS | Encounter Summary ---
Author Organization [facility] Address [address] [place] [address] Care Team Providers Care Technical Operator Name Role Phone Salud Lester MD Primary Care Provider Geoffrey Arnulfo Sheldon MD Unavailable [phone] Laura Palma NP Unavailable +- [phone] Encounter Details Date Type Department Care Team Description 07/22/2020 Mechanical Systems Engineer Report Medical Records [address] [place] [address] Facundo Garcia MD Social History Tobacco Use [...] on filedocumented in this encounter Care Teams Technical Operator Relationship Specialty Start Date End Date Salud Lester MD PCP - General Internal Medicine 03/29/18 Arnulfo Wilks MD [address] [place] [address] Specialist Cardiovascular Disease 08/22/20 Laura Palma NP [address] [place] [address] Cardiology 08/22/20 documented as of this encounter
--- OUTSIDE RECORDS SUMMARY | 2024-10-17 16:13 | XMS_ITS | Encounter Summary ---
Author Organization [facility] Address [address] [place] [address] Care Team Providers Care Plastic Battery Assembler Name Role Phone Salud Lester MD Primary Care Provider Arnulfo Mccollum MD Unavailable Laura Palma NP Unavailable [phone] Reason for Visit * Reason Onset Date Comments refill request 08/10/2019 Encounter Details Date Type Department Care Team Description 08/10/2019 Refill Gastroenterology - [address] [address] Hoa Sewell DScPAS refill request Social History Tobacco Use Types Packs/Day Years Used Date Smoking Tobacco: Never Smokeless Tobacco: Never Alcohol Use Standard Drinks/Week Comments No 0 (1 standard drink = 0.6 oz pur e alcohol) Sex Assigned at Date Recorded Not on file documented as of this encounter Miscellaneous Notes * Telephone Encounter - Liala Dugan - 08/10/2019 10:20 AM EDT Patient would like script to be: E-PRESCRIBED/FAXED TO PHARMACY When was the patients last office visit in Adult Medicine?: 03/28/2019 When was the last time the patient saw their PCP? Same as above Does patient have an upcoming appointment? Yes 09/04/2019 (THE MEDICATION IS NOT ON THE MED LIST AND IS IDENTIFIED BELOW): {MED LIST:82088) Med name: Pantoprazole sod Dosage: 40 mg [...] on filedocumented in this encounter Care Teams Plastic Battery Assembler Relationship Specialty Start Date End Date Salud Lester MD PCP - General Internal Medicine 03/29/18 Arnulfo Wilks MD [address] [place] [address] [place] [address] Specialist Cardiovascular Disease 08/22/[address] [place] [address] Cardiology 08/22/20 documented as of this encounter
--- OUTSIDE RECORDS SUMMARY | 2024-10-17 16:13 | XMS_ITS | Encounter Summary ---
Author Organization [facility] Address [address] [place] [address] Care Team Providers Care Electric Lift Truck Driver Name Role Phone Salud Lester MD Primary Care Provider Arnulfo Mccollum MD Unavailable [phone] Laura Palma NP Unavailable + [phone] Encounter Details Date Type Department Care Team Description 11/27/2019 Telephone Gastroenterology - [address] [place] [address] Hoa Sewell, ReneaPAS Social History [...] on filedocumented in this encounter Care Teams Electric Lift Truck Driver Relationship Specialty Start Date End Date Salud Lester MD PCP - General Internal Medicine 03/29/18 Arnulfo Wilks MD [address] [place], [place] [phone] Specialist Cardiovascular Disease 08/22/20 Laura Palma, SIDRA [address] [place] [address] Cardiology 08/22/20 documented as of this encounter
--- OUTSIDE RECORDS SUMMARY | 2024-10-17 16:13 | XMS_ITS | Encounter Summary ---
Author Organization [facility] Address [address] [place] [address] Care Team Providers Care Ice Seller Name Role Phone Salud Lester MD Primary Care Provider Arnulfo Mccollum MD Unavailable [phone] Laura Palma NP Unavailable [phone] Encounter Details Date Type Department Care Team Description 03/24/2019 Orders Only Medical Records [address] [place] [address] Abstract, Provider Epigastric abdominal pain; Chronic nausea; [...] reflux documented in this encounter Care Teams Ice Seller Relationship Specialty Start Date End Date Salud Lester MD PCP - General Internal Medicine 03/29/18 Arnulfo Wilks MD [address] [place] [address] [place] [address] Specialist Cardiovascular Disease 08/22/20 Laura Palma NP [address] [place] [address] Cardiology 08/22/20 documented as of this encounter
--- OUTSIDE RECORDS SUMMARY | 2024-10-17 16:13 | XMS_ITS | Encounter Summary ---
Author Organization [facility] Address [address] [place] [address] Care Team Providers Care Induction Coordination Power Engineer Name Role Phone Salud Lester MD Primary Care Provider Arnulfo Mccollum MD Unavailable [phone] Laura Palma NP Unavailable [phone] Encounter Details Date Type Department Care Team Description 03/16/2019 Orders Only Gastroenterology - [address] [place] [phone] Hoa Sewell, DScPAS Social History Tobacco Use [...] on filedocumented in this encounter Care Teams Induction Coordination Power Engineer Relationship Specialty Start Date End Date Salud Lester MD PCP - General Internal Medicine 03/29/18 Arnulfo Wilks MD [address] [place] [address] Specialist Cardiovascular Disease 08/22/20 Laura Palma NP [address] [place] [address] Cardiology 08/22/20 documented as of this encounter
--- OUTSIDE RECORDS SUMMARY | 2024-10-17 16:13 | XMS_ITS | Encounter Summary ---
Author Organization [facility] Address [address] [place] [address] Care Team Providers Care Helper Steel Fabrication Name Role Phone Salud Lester MD Primary Care Provider Arnulfo Mccollum MD Unavailable [phone] Laura Palma NP Unavailable [phone] Reason for Visit * Reason Onset Date Comments refill request 12/27/2019 Encounter Details Date Type Department Care Team Description 12/27/2019 Refill Gastroenterology - [address] [place] [phone] Hoa Sewell DScPAS refill request Social History [...] on filedocumented in this encounter Care Teams Helper Steel Fabrication Relationship Specialty Start Date End Date Salud Lester MD PCP - General Internal Medicine 03/29/18 Arnulfo Wilks MD [address] [place] [address] Specialist Cardiovascular Disease 08/22/20 Laura Palma NP [address] [place] [phone] Cardiology 08/22/20 documented as of this encounter
--- OUTSIDE RECORDS SUMMARY | 2024-10-17 16:13 | XMS_ITS | Clinical Summary ---
Author Organization [facility] Address [address] [place] [address] Phone Care Team Providers Care Belt Picker Name Role Phone Salud Lester MD Primary Care Provider [phone] Allergies Active Allergy Reactions Criticality Noted Date [...] Active inhaler, assist devices (AEROCHAMBER PLUS FLOW-VU [facility]) 09/28/2018 Active sulfaSALAzine (AZULFIDINE) 500 mg tablet Take 500 mg by mouth 2 times daily. 11/18/2017 Active warfarin (COUMADIN) 5 mg tablet Take 5 mg by mouth See Admin Instructions. [place] [facility] managing INR's. Active Active Problems Problem Noted Date Diagnosed Date Aortic aneurysm ([facility] V24) 09/03/2020 Overview (04/04/2024): Last Assessment & Plan: -Dilated at 4.4 cm from July 2019 -Discussed strict blood pressure control Carotid artery disease ([facility] V24) 09/03/2020 Overview (04/04/2024): Last Assessment & Plan: -50-69% LICA disease from September 2018 -followed by Dr. Lange of [facility] Chronic atrial fibrillation ([facility] V24, [facility]/ C V28) 09/03/2020 Overview (04/04/2024): Last Assessment [...] controlled at this time on diltiazem, continue -[id number] = 6 (age, gender, HTN, CHF, DM), continue anticoagulation with warfarin. Risks and benefits of anticoagulation have thoroughly reviewed with the patient she verbalized understanding and agrees to continue. Bilateral bunions 09/26/2018 Diabetic polyneuropathy asso ciated with type 2 diabetes mellitus ([facility] V24, [facility] V28) 09/26/2018 Hammer toe of left foot 09/26/2018 Esophageal reflux 12/29/2017 Rheumatoid arthritis ([facility] V[facility], [facility] V28) 11/18/2017 Hypertension 07/07/2016 Overview (04/04/2024): Last Assessment & Plan: 110/64 Continue diltiazem, furosemide, and lisinopril at current doses. Anxiety 04/09/2016 Paroxysmal atrial fibrillation ([facility] V24, [facility] V28) 04/09/2016 DVT (deep venous thrombosis) ([facility] V24, [facility] V28) 04/02/2016 Diabetes mellitus type 2, un complicated ([facility] V24, [facility] V28) 03/24/2016 Chronic obstructive pulmonar y disease ([facility] V24, [facility] V28) 03/05/2016 Hyperlipidemia 03/05/2016 Pulmonary embolism ([facility] V24, [facility] V28) Congestive heart failure ([facility] V24, [facility] V 28) 02/13/2016 Overview (04/04/2024): Last Assessment [...] AM EDT Office Visit Orthopedic Surgery - [address] [address] Vinny Yates, MARTHAM Krista nixon, right (Primary Dx); Acquired hallux valgus of right foot; Acquired hallux valgus of left foot; Dermatophytosis of nail; Hammer toe of left foot; Type II diabetes mellitus with peripheral circulatory disorder ([facility] V24, [facility] V28); Corns and callosities; Metatarsalgia of both feet; Pain in toe of left foot; Diabetic mononeuropathy simplex ([facility] V24, [facility] V28); Pain in toe of right foot [...] AM EDT Office Visit Orthopedic Surgery - [place] [address] [phone] Vinny Yates, DPM [address] [address] Health Maintenance Due Date Last Done Comments [...] Insurance MEDICARE [place]ICAID - [place] Care Teams Belt Picker Relationship Specialty Start Date End Date Salud Lester MD [address] [place] [address] PCP - General Internal Medicine 03/29/18
--- OUTSIDE RECORDS SUMMARY | 2024-10-17 16:13 | XMS_ITS | Encounter Summary ---
Author Organization [facility] Address [address] [place] [address] Care Team Providers Care Finishing Inspector Name Role Phone Salud Lester MD Primary Care Provider Arnulfo Mccollum MD Unavailable [phone] Laura Palma NP Unavailable [phone] Reason for Visit * Reason Onset Date Comments Error 08/09/2019 Encounter Details Date Type Department Care Team Description 08/09/2019 Telephone Gastroenterology - [address] [place] [address] Hoa Sewell DScPAS Error Social [...] on filedocumented in this encounter Care Teams Finishing Inspector Relationship Specialty Start Date End Date Salud Lester MD PCP - General Internal Medicine 03/29/18 Arnulfo Wilks MD [address] [place], [place] [phone] Specialist Cardiovascular Disease 08/22/20 Laura Palma NP [address] [place], [place] [phone] Cardiology 08/22/20 documented as of this encounter
--- OUTSIDE RECORDS SUMMARY | 2024-10-17 16:13 | XMS_ITS | Clinical Summary ---
Author Organization [facility] Address [address] [facility] [place] [address] Care Team Providers Care Family Practice Nurse Practitioner Name Role Phone Salud Lester MD Primary Care Provider Arnulfo Mccollum MD Unavailable [phone] Laura Palma CANDY ATTENDANT Unavailable [phone] Allergies Active Allergy Reactions Severity Noted Date [...] 5 mg by mouth See Admin Instructions. [place] [facility] managing INR's. 0 Active furosemide [...] controlled at this time on diltiazem, continue -[id number] = 6 (age, gender, HTN, CHF, DM), [...] 02/16/2018, 03/11/2017, Additional history exists Care Teams Family Practice Nurse Practitioner Relationship Specialty Start Date End Date Salud Lester MD PCP - General Internal Medicine 03/29/18 Arnulfo Wilks MD [address] [place] [address] Specialist Cardiovascular Disease 08/22/20 Laura Palma NP [address] [place] [phone] Cardiology 08/22/20
[2024-10-17 16:23] LABS: MANUAL DIFF FLAG NO
[2024-10-17 16:35] LABS: Basophils Percent Auto 0.7 % (0-2); Eosinophils Absolute Auto 0.2 X10*3/uL (0.0-0.4); Eosinophils Percent Auto 2.9 % (0-4); Hematocrit 42.6 % (37.0-47.0); Hemoglobin 13.6 g/dl (12.0-16.0); Imm Gran Abs Auto 0.02 X10*3/uL (0.00-0.03); Imm Gran Pct Auto 0.4 % (0.0-0.4); Lymphocytes Absolute Auto 1.1 X10*3/uL (1.2-4.9); Lymphocytes Percent Auto 19.5 % (20-40); Mean Corpuscular HGB Conc 31.9 g/dl (31.0-35.0); Mean Corpuscular Hemoglobin 31.2 pg (27.0-33.0); Mean Corpuscular Volume 97.7 fL (80.0-98.0); Mean Platelet Volume 11.3 fL (9.4-12.3); Monocytes Absolute Auto 0.5 X10*3/uL (0.1-1.2); Monocytes Percent Auto 9.3 % (2-11); Neutrophils Absolute Auto 3.8 x10*3/uL (2.0-8.3); Neutrophils Percent Auto 67.2 % (45-73); Platelet Count 219 X10*3/uL (160-400); Red Blood Count 4.36 X10*6/uL (4.20-5.50); Red Cell Distribution Width 12.9 % (11.0-16.0); White Blood Count 5.6 X10*3/uL (4.8-10.8)
[2024-10-17 16:53] LABS: Estimated Average Glucose 108 mg/dL; Hemoglobin A1c % 5.4 % (<6.0); Total Hemoglobin (HGBA1C) 3684.2728 umol/L
[2024-10-17 17:07] LABS: Alanine Aminotransferase 9 U/L (0-31); Alkaline Phosphatase 100 U/L (39-117); Anion Gap 13 (12-20); Aspartate Amino Transferase 22 U/L (5-31); Bilirubin Total 0.5 mg/dL (0.0-1.0); Blood Urea Nitrogen 14 mg/dL (9-16); Calcium 9.3 mg/dL (8.4-10.2); Carbon Dioxide 30 mmol/L (22-29); Chloride 100 mmol/L (96-108); Estimated Glomerular Filt Rate > 60; Glucose Random 69 mg/dL (60-115); Potassium 3.4 mmol/L (3.3-5.1); Sodium 140 mmol/L (135-145); Total Protein 7.2 g/dL (6.5-8.0)
[2024-10-17 17:25] LABS: TSH reflex Free T4 3.82 uIU/mL (0.32-4.0)
== END 2024-10-17 13:40 | disposition home or self-care (01) ==
LOC: HO.HMGCLDS 13:39
PROVIDERS: PCP Internal Medicine; Visit Provider Internal Medicine
DX: R59.0 Localized enlarged lymph nodes (principal); E11.22 Type 2 diabetes mellitus with diabetic chronic kidney disease; N18.30 Chronic kidney disease, stage 3 unspecified; E03.9 Hypothyroidism, unspecified; M54.2 Cervicalgia
CPT/HCPCS: 36415; 80053; 83036; 84443; 85025; 99212

== ENCOUNTER 2024-10-17 13:39 | Outpatient (AMB) | payer MEDICARE, MEDICAID, SELFPAY ==
[2024-10-17 13:41] VITALS: BP 122/78; PULSE 83; TEMP 36.5; O2SAT 93; BMI 38.4
--- NOTE | 2024-10-17 13:41 | MHC.PC.OV ---
Vital Signs 10/17/24 13:41 Height 5 ft 6 in Weight 238 lb BMI 38.4 BP 122/78 Blood Pressure Location Rt brachial Position Sitting Pulse 83 Pulse Source Pulse Oximeter Temp 97.7 F Temp Source Oral Pulse Oximetry (%) 93 Oxygen Delivery Method Room Air Intake Visit Reasons: Follow up Intake Note: Pt is here today for PE. Distribution Systems Serviceperson Required: Yes Distribution Systems Serviceperson Language: Romanian Information Interpreted: non-clinical & clinical Allergies atorvastatin [From Lipitor] Allergy (Unknown, Verified 10/17/24 14:10) Leg cramps ciprofloxacin [From Cipro] Allergy (Unknown, Verified 10/17/24 14:10) Stomach Upset ezetimibe [From Zetia] Allergy (Unknown, Verified 10/17/24 14:10) leg cramps hydrochlorothiazide [From Avalide] Allergy (Unknown, Verified 10/17/24 14:10) Stomach Upset infliximab [From Remicade] Allergy (Unknown, Verified 10/17/24 14:10) Infection irbesartan [From Avalide] Allergy (Unknown, Verified 10/17/24 14:10) Stomach Upset metformin Allergy (Unknown, Verified 10/17/24 14:10) nausea moxifloxacin [From Avelox] Allergy (Unknown, Verified 10/17/24 14:10) Stomach Upset nifedipine Allergy (Unknown, Verified 10/17/24 14:10) upset stomach pravastatin Allergy (Unknown, Verified 10/17/24 14:10) stomach upset rosuvastatin [From Crestor] Allergy (Unknown, Verified 10/17/24 14:10) Leg cramps terazosin [From Hytrin] Allergy (Unknown, Verified 10/17/24 14:10) Stomach Upset valsartan [From Diovan] Allergy (Unknown, Verified 10/17/24 14:10) Stomach Upset warfarin [WARFARIN] Allergy (Unknown, Verified 10/17/24 14:10) Anaphylaxis Medication List - Last Reconciled 10/17/24 by Salud Lester MD acetaminophen ER (Tylenol 8 Hour) 1,300 mg PO Q8H albuterol sulfate 0.63 mg (3 mL) inhalation Q4-6H PRN apixaban (Eliquis) 5 mg PO BID blood sugar diagnostic As directed blood sugar diagnostic (FreeStyle Test strips) check glucose once a day blood-glucose meter As directed compr.stocking,knee,long,x-lrg 10-20 mmHg diltiazem HCl ER 240 mg PO DAILY Farxiga (dapagliflozin propanediol) 5 mg PO DAILY NS fluticasone furoate-vilanterol 100-25 mcg/dose (Breo Ellipta) 1 inh inhalation DAILY folic acid 1 mg PO DAILY furosemide 40 mg PO BID gabapentin 300 mg PO TID 90 days glipizide 5 mg PO DAILY hospital bed As directed incontinence pad, liner, disp As directed levothyroxine 50 mcg PO QAM lisinopril 5 mg PO BID meclizine 25 mg PO DAILY PRN pantoprazole 40 mg PO DAILY@0600 potassium chloride ER 20 mEq (2 x 10 mEq) PO DAILY Shower Chair As directed tiotropium bromide (Spiriva with HandiHaler) 1 cap inhalation DAILY tramadol 100 mg PO TID 30 days Tobacco use date assessed: 10/17/24 Fall risk assessment: No Falls in past year Last assessed Fall Risk: 10/17/24 Dental Screening Dental Screen Date: 06/26/24 HPI Follow up HPI Details Patient presents complaining of posterior neck pain and stiffness the left side more than right for the last 3 weeks. Symptoms are worse with movement. Patient denies pain numbness or weakness in upper extremities. Patient complains of difficulty swallowing and a pressure on her anterior neck when tries to swallow. She denies odynophagia dysphagia nausea vomiting. Hypertension type 2 diabetes hypothyroidism are stable on current medications [facility] Medical History Ankle pain, right Hypokalemia LILY (obstructive sleep apnea) (HFpEF) heart failure with preserved ejection fraction Depression Physical deconditioning Cervical radiculopathy due to degenerative joint disease of spine Venous insufficiency Recurrent pulmonary embolism Diabetes Hyperlipidemia Hemorrhoids Obesity Rheumatoid arthritis COPD (chronic obstructive pulmonary disease) Atrial fibrillation Hypertension Surgical History History of carpal tunnel syndrome History of surgery Family History Father No problems noted. Mother No problems noted. Social History Household Members: Family Housing: House Do you presently have visiting nurse or other home services: No Alcohol intake: never Patient Tobacco Use Status: Never used Tobacco e-Cigarette/Vaping Use: Never Used service: No Current occupational status: retired Cognitive needs: No Hearing needs: No Vision needs: Yes Questionnaire Thrive Questionnaire Date Thrive assessed: 07/10/24 I am a: Parent/Caregiver What is your living situation today?: I have a steady place to live Within the past 12 months, did the food you bought not last and you didn't have the money to get more?: Never true Within the past 12 months, did you worry whether your food would run out before you got money to buy more?: Never true Do you have trouble paying for medicines?: No Do you have trouble getting transportation to medical appointments?: No Do you have trouble paying your heating and electricity bill?: No Do you have trouble taking care of your child, family member or friend?: No Do you have trouble with day-to-day activities such as bathing, preparing meals, shopping, managing finances, etc.?: Yes Are you currently unemployed and looking for a job?: No Are you interested in more education?: No Please select the resources that you would like help with: None Currently or been in a relationship where the following occur: No concerns reported THRIVE Score: 0 OTILIO-7 AMB Questionnaire OTILIO-7 Date OTILIO - 7 assessed: 06/26/24 Source: Developed by Drs. Gume Adam, Sandhya Chopra, Major Headley and colleagues, with an educational kimberlee from [employer]. Review of Systems Const All systems reviewed & are unremarkable except as noted in HPI and below ENT Reports no additional complaints Card Reports no additional complaints Resp Reports no additional complaints GI Reports no additional complaints Reports no additional complaints Physical exam (Primary Care) Vital Signs: Last Vital Signs Temp 97.7 F 10/17/24 13:41 Pulse 83 10/17/24 13:41 BP 122/78 10/17/24 13:41 Pulse Ox 93 10/17/24 13:41 Oxygen Delivery Method Room Air 10/17/24 13:41 BMI result Body Mass Index 38.4 Tobacco/Smoking Status: Tobacco use Status Tobacco use date assessed 10/17/24 10/17/24 13:42 Patient Tobacco Use Status Never used Tobacco 10/17/24 13:42 e-Cigarette/Vaping Use Never Used 10/17/24 13:42 Thrive Assessment: Date of Thrive Assessment Date Thrive assessed 07/10/24 10/17/24 13:42 Currently or been in a relationship where the following occur: No concerns reported Const General: no acute distress HENMT Other: Paraspinal tenderness in the lower cervical region left more than right and muscle spasm. Head: Yes normal to inspection Ears: TM's normal bilaterally Eyes General: appearance normal, both eyes and all related structures Neck Neck: Yes supple and Yes anterior neck swelling Thyroid: diffusely enlarged Resp Effort & Inspection: normal respiratory effort Auscultation: crackles and diminished lung sounds Cardio Rhythm: regular rhythm Heart sounds: S1 normal heart sound present and S2 normal heart sound present GI Inspection: Yes normal to inspection Palpation (GI): Soft to palpation Percussion: Yes normal to percussion Extrem Other: 1+ pitting edema bilaterally Coding Level of Care Code Est Pt Level 4 (56455) Diagnoses Cervical lymphadenopathy R59.0 CKD (chronic kidney disease) stage 3, GFR 30-59 ml/min N18.30 Diabetes E11.9 Hypothyroid E03.9 Neck pain M54.2 Assessment & Plan Assessment & Plan (1) Cervical lymphadenopathy: Code(s): R59.0 - Localized enlarged lymph nodes Category: Medical Plan: Obtain neck ultrasound to evaluate for cervical adenopathy and goiter (2) CKD (chronic kidney disease) stage 3, GFR 30-59 ml/min: Code(s): N18.30 - Chronic kidney disease, stage 3 unspecified Category: Medical Plan: Monitor renal function avoid nephrotoxins (3) Diabetes: Comment: A1C goal less than 8 Code(s): E11.9 - Type 2 diabetes mellitus without complications Category: Medical Plan: Check A1c continue ADA diet (4) Hypothyroid: Code(s): E03.9 - Hypothyroidism, unspecified Category: Medical Plan: Check TSH continue levothyroxine (5) Neck pain: Code(s): M54.2 - Cervicalgia Category: Medical Plan: For chronic musculoskeletal neck pain patient will be referred to physical therapy baclofen 10 mg q.h.s. for 10 days is prescribed Orders: Orders Comprehensive Met. Panel Today E03.9 - Hypothyroidism, unspecified, E11.9 - Type 2 diabetes mellitus without complications, N18.30 - Chronic kidney disease, stage 3 unspecified US soft tiss head and/or neck Today R59.0 - Localized enlarged lymph nodes PT Evaluation and Treatment Today M54.2 - Cervicalgia Complete Blood Count Auto Diff Today E03.9 - Hypothyroidism, unspecified, E11.9 - Type 2 diabetes mellitus without complications, N18.30 - Chronic kidney disease, stage 3 unspecified TSH reflex Free T4 Today E03.9 - Hypothyroidism, unspecified, E11.9 - Type 2 diabetes mellitus without complications, N18.30 - Chronic kidney disease, stage 3 unspecified Hemoglobin A1c Today E03.9 - Hypothyroidism, unspecified, E11.9 - Type 2 diabetes mellitus without complications, N18.30 - Chronic kidney disease, stage 3 unspecified Medications: New baclofen 10 mg PO BEDTIME 10 tabs 0RF
--- OUTSIDE RECORDS SUMMARY | 2024-10-17 14:51 | XMS_ITS | Clinical Summary ---
Author Organization [address] [facility] Address [address] [place] [address] Phone Care Team Providers Care Nanny Babysitter Name Role Phone Salud Lester MD Primary Care Provider [phone] Allergies Active Allergy Reactions Criticality Noted Date [...] Active inhaler, assist devices (AEROCHAMBER PLUS FLOW-[facility] 09/28/2018 Active sulfaSALAzine (AZULFIDINE) 500 mg tablet Take 500 mg by mouth 2 times daily. 11/18/2017 Active warfarin (COUMADIN) 5 mg tablet Take 5 mg by mouth See Admin Instructions. [place] [facility] managing INR's. Active Active Problems Problem Noted Date Diagnosed Date Aortic aneurysm ([facility] V24) 09/03/2020 Overview (04/04/2024): Last Assessment & Plan: -Dilated at 4.4 cm from July 2019 -Discussed strict blood pressure control Carotid artery disease ([facility] V24) 09/03/2020 Overview (04/04/2024): Last Assessment & Plan: -50-69% LICA disease from September 2018 -followed by Dr. Lange of [facility] Chronic atrial fibrillation ([facility] V24, [facility]/ [facility] V28) 09/03/2020 Overview (04/04/2024): Last Assessment [...] controlled at this time on diltiazem, continue -[id number] = 6 (age, gender, HTN, CHF, DM), continue anticoagulation with warfarin. Risks and benefits of anticoagulation have thoroughly reviewed with the patient she verbalized understanding and agrees to continue. Bilateral bunions 09/26/2018 Diabetic polyneuropathy asso ciated with type 2 diabetes mellitus ([facility] [place], [facility] V28) 09/26/2018 Hammer toe of left foot 09/26/2018 Esophageal reflux 12/29/2017 Rheumatoid arthritis ([facility] [place], [facility] V28) 11/18/2017 Hypertension 07/07/2016 Overview (04/04/2024): Last Assessment & Plan: 110/64 Continue diltiazem, furosemide, and lisinopril at current doses. Anxiety 04/09/2016 Paroxysmal atrial fibrillation ([facility] [place], [facility] V28) 04/09/2016 DVT (deep venous thrombosis) ([facility], [facility] V28) 04/02/2016 Diabetes mellitus type 2, un complicated ([facility] V24, [facility] V28) 03/24/2016 Chronic obstructive pulmonar y disease ([facility] V24, [facility] V28) 03/05/2016 Hyperlipidemia 03/05/2016 Pulmonary embolism ([facility], [facility] V[facility]) Congestive heart failure ([facility], [facility] V 28) 02/13/2016 Overview (04/04/2024): Last Assessment [...] Encounters Date Type Department Care Team Description 10/05/2024 8:45 AM EDT Office Visit Orthopedic Surgery - [address] [address] Vinny Yates, MARTHAM Krista nixon, right (Primary Dx); Acquired hallux valgus of right foot; Acquired hallux valgus of left foot; Dermatophytosis of nail; Hammer toe of left foot; Type II diabetes mellitus with peripheral circulatory disorder ([facility] V24, [facility] V28); Corns and callosities; Metatarsalgia of both feet; Pain in toe of left foot; Diabetic mononeuropathy simplex ([facility] V24, [facility] V28); Pain in toe of right foot from Last 3 Months Immunizations Name Administration [...] Care Team (Late st Contact Info) Description 12/05/2024 8:45 AM EDT Office Visit Orthopedic Surgery - [place] [address] [id number] Vinny Yates, DPM [address] [address] Health Maintenance Due Date Last Done Comments [...] BMP Blood Test Abstracted Historical Provider MD HEALTH MAINTENANCE Final Result from Last 3 Months or Most Recently Relevant to Health Maintenance Insurance MEDICARE [place] - [place] Care Teams Nanny Babysitter Relationship Specialty Start Date End Date Salud Lester MD [address] [place] [address] PCP - General Internal Medicine 03/29/18
--- OUTSIDE RECORDS SUMMARY | 2024-10-17 14:51 | XMS_ITS | Encounter Summary ---
Author Organization [facility] Address [address] [place] [address] Care Team Providers Care Receiving Operator Name Role Phone Salud Lester MD Primary Care Provider Geoffrey Arnulfo Sheldon MD Unavailable [phone] Laura Palma NP Unavailable [phone]- [phone] Encounter Details Date Type Department Care Team Description 05/04/2018 Transfer Records Medical Records [address] [place] [address] Abstract, Provider Social History Tobacco Use Types [...] on filedocumented in this encounter Care Teams Receiving Operator Relationship Specialty Start Date End Date Salud Lester MD PCP - General Internal Medicine 03/29/18 Arnulfo Wilks MD [address] [place] [address] Specialist Cardiovascular Disease 08/22/20 Laura Palma NP [address] [place] [address] Cardiology 08/22/20 documented as of this encounter
--- OUTSIDE RECORDS SUMMARY | 2024-10-17 14:51 | XMS_ITS | Encounter Summary ---
Author Organization [facility] Address [address] [place] [address] Care Team Providers Care Emergency Medcl Emt Name Role Phone Salud Lester MD Primary Care Provider Arnulfo Mccollum MD Unavailable [phone] Laura Palma NP Unavailable + [phone] Encounter Details Date Type Department Care Team Description 11/27/2019 Telephone Gastroenterology - [address] [place] [address] Hoa Sewell, ReneaPAS Social History [...] on filedocumented in this encounter Care Teams Emergency Medcl Emt Relationship Specialty Start Date End Date Salud Lester MD PCP - General Internal Medicine 03/29/18 Arnulfo Wilks MD [address] [place], [place] [address] Specialist Cardiovascular Disease 08/22/20 Laura Palma, SIDRA [address] [place] [address] Cardiology 08/22/20 documented as of this encounter
--- OUTSIDE RECORDS SUMMARY | 2024-10-17 14:51 | XMS_ITS | Encounter Summary ---
Author Organization [facility] Address [address] [place] [address] Care Team Providers Care Algorithm Developer Name Role Phone Salud Lester MD Primary Care Provider Geoffreya Arnulfo Sheldon MD Unavailable [phone] Laura Palma NP Unavailable [phone] Encounter Details Date Type Department Care Team Description 10/16/2020 [facility] Medical Records [address] [place] [address] Abstract, Provider Social History Tobacco Use Types [...] on filedocumented in this encounter Care Teams Algorithm Developer Relationship Specialty Start Date End Date Salud Lester MD PCP - General Internal Medicine 03/29/18 Arnulfo Wilks MD [address] [place] [address] Specialist Cardiovascular Disease 08/22/20 Laura Palma NP [address] [place] [address] Cardiology 08/22/20 documented as of this encounter
--- OUTSIDE RECORDS SUMMARY | 2024-10-17 14:51 | XMS_ITS | Clinical Summary ---
Author Organization [facility] Address [address] [facility] [place] [address] Care Team Providers Care Director Of Marketing And Promotions Name Role Phone Salud Lester MD Primary Care Provider Arnulfo Mccollum MD Unavailable [phone] Laura Palma ONCOLOGY COORDINATOR Unavailable [phone] Allergies Active Allergy Reactions Severity Noted Date [...] 5 mg by mouth See Admin Instructions. [place] [facility] managing INR's. 0 Active furosemide [...] controlled at this time on diltiazem, continue -[id number] = 6 (age, gender, HTN, CHF, DM), [...] 02/16/2018, 03/11/2017, Additional history exists Care Teams Director Of Marketing And Promotions Relationship Specialty Start Date End Date Salud Lester MD PCP - General Internal Medicine 03/29/18 Arnulfo Wilks MD [address] [place] [address] Specialist Cardiovascular Disease 08/22/20 Laura Palma NP [address] [place] [id number] Cardiology 08/22/20
--- OUTSIDE RECORDS SUMMARY | 2024-10-17 14:51 | XMS_ITS | Encounter Summary ---
Author Organization [facility] Address [address] [place] [address] Care Team Providers Care Learning Support Teacher Name Role Phone Salud Lester MD Primary Care Provider Arnulfo Mccollum MD Unavailable [phone] Laura Palma NP Unavailable + [phone] Reason for Visit * Reason Onset Date Comments Error 08/09/2019 Encounter Details Date Type Department Care Team Description 08/09/2019 Telephone Gastroenterology - [address] [place] [address] Hoa Sewell DScPAS Error Social History Tobacco Use Types Packs/Day Years [...] on filedocumented in this encounter Care Teams Learning Support Teacher Relationship Specialty Start Date End Date Salud Lester MD PCP - General Internal Medicine 03/29/18 Arnulfo Wilks MD [address] [place], [place] [phone] Specialist Cardiovascular Disease 08/22/20 Laura Palma NP [address] [place], [place] [address] Cardiology 08/22/20 documented as of this encounter
--- OUTSIDE RECORDS SUMMARY | 2024-10-17 14:51 | XMS_ITS | Encounter Summary ---
Author Organization [facility] Address [address] [facility] [place] [address] Care Team Providers Care Contracts Director Name Role Phone Salud Lester MD Primary Care Provider Arnulfo Mccollum MD Unavailable [phone] Laura Palma NP Unavailable [phone]- [phone] Encounter Details Date Type Department Care Team Description 06/15/2018 [facility] [address] [place] [address] Hoa Sewell, DScPAS Social History Tobacco Use [...] on filedocumented in this encounter Care Teams Contracts Director Relationship Specialty Start Date End Date Salud Lester MD PCP - General Internal Medicine 03/29/18 Arnulfo Wilks MD [address] [place] [address] Specialist Cardiovascular Disease 08/22/20 Laura Palma NP [address] [place] [address] Cardiology 08/22/20 documented as of this encounter
--- OUTSIDE RECORDS SUMMARY | 2024-10-17 14:51 | XMS_ITS | Data Portability ---
Author Organization [facility] Address [address] [place] [address] Assessment No assessment recorded. Plan of Treatment Reminders Order Date Submit Date Provider Last Modified By Organization Details Last Modified Time Details Appointments None recorded. Lab None recorded. Referral None recorded. Procedures None recorded. Surgeries None recorded. Imaging None recorded. Medication Orders acetaminoph en 300 mg-codeine 30 mg tablet 2024 025 [id number], [address] [place], [place], [id number], 5 14:45:38 acetaminoph en 300 mg-codeine 30 mg tablet 2023 024 [facility][id number], [address] [place], [place], [id number], 4 16:15:32 Patient TargetsNo targets recorded. Patient [...] Address Organization Details Recorded Time No complaints 546897642 Active Status : 'I'; Not Available [facility] 4 09:24:55 Pain of joint of knee 2170283264 Active 2021 Status : 'A'; Not Available [facility] 4 11:57:34 Problem Notes None recorded. Procedures Surgical History Date Name Laterality Status Provider Name and Address Organization Details Recorded Time 5 Gel-One Knee Injection completed Singh Iyer PA-C [address], [place], [address], [facility] 06/16/2024 13:09:53 4 Gel-One Knee Injection completed Singh Iyer PA-C [address], [place], [address], [facility] 10/28/2023 16:49:54 Imaging Results Imaging Date Name Status LastModified by Organiz ation Details LastModified Time 08/25/2018 imaging/diag nostic result completed [email or web address] Information not available 01/29/2024 10:50:24 Procedure Notes None recorded. Medical Equipment None Reported. Allergies Allergen ID Allergen Name Allergen Category Reaction Reaction Severity Criticality Documentation Date Start Date Code Code System Note Provider Name and Address Organization Details Recorded Time 286779 warfarin medicatio n Not available Not available Not available 10/28/2023 55128 RxNorm JAMEEL TANG [facility] 4 15:51:31 114400 Remicade medicatio n Not available Not available Not available 10/28/2023 53885 0 RxNorm JAMEEL TANG [facility] 4 15:51:37 Medications Name Sig Start Date [...] Updated DateTime 10/28/2023 167.64 cm 42 kg/m2 797062.02 g JAMEEL [facility] 10/28/2023 15:51:04 Date Recorded Body height Provider Name an d Address Organization Details Last Updated DateTime 06/16/2024 167.64 cm MELYSSA GARCIA [facility] 06/16/2024 14:33:40 Social History None recorded. Functional Status None recorded. Mental Status None recorded. Family History Nothing Reported. Medical History No medical history recorded. Gynecological HistoryNo gynecological history recorded. Obstetrics History GPAL:G 0 P 0 0 0 0 Past Encounters Encounter ID Performer Location Encounter Start Date Encounter Closed Date Diagnosis/Indication Diagnosis SNOMED-CT Code Diagnosis ICD10 Code Diagnosis Note [id number] [facility] [address] [place] [address] 10/28/2023 15:30:03 11/29/2023 07:40:35 Osteoarthritis of right knee joint 2549524125 93081 M17.11 Osteoarthr itis of knee 951010579 M17.9 Osteoarthr itis of left knee joint 9406348423 55950 M17.12 [id number] [facility] [address] [place] [address] 06/16/2024 14:28:32 06/27/2024 12:30:26 Osteoarthritis of right knee joint 4262821748 27292 M17.11 Osteoarthr itis of left knee joint 1297002515 38925 M17.12 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 8800356372 3914106 M25.561 M25.562 G89.28 Z96.653 Health Concerns Section Related Observation LastModified by Organization Detai ls LastModified Time None Recorded Concern Status LastModified by Organization Details LastModified Time None Recorded Advance Directives Directive None Recorded Payers Encounter Date Sequence Insurance Name Policy Number Policy White Covered Member ID White Member ID Guarantor Name 10/28/2023 1 [place] [facility] Camille Andrade [id number] Camille Andrade 10/28/2023 2 [place] [facility] Camille Andrade [id number] Camille Andrade 06/16/2024 1 [place] [facility] Camille Andrade [id number] Camille Andrade 06/16/2024 2 [place] [facility] Camille Andrade [id number] Camille Andrade Notes Date Note Type Note [...] Some discomfort with range of motion. Assessment? Osteoarthritis of knee -bilateral knees Plan After meticulous sterile preparation, the knees bilaterally were injected with 1 vial of Huyen gel 1. Post-injection precautions were reviewed. I recommend ice, restriction of activities and re-evaluation next week for follow up injection. Singh Iyer PA-C [address], [place], [address], [facility] 10/28/2023 16:50:18 06/16/2024 text/html [...] Some discomfort with range of motion. Assessment? Osteoarthritis of knee -bilateral knees Plan After meticulous sterile preparation, the knees bilaterally were injected with 1 vial of Huyen gel 1. Post-injection precautions were reviewed. I recommend ice, restriction of activities and re-evaluation next week for follow up injection. Singh Iyer PA-C [address], [place], [address], [facility] 07/06/2024 14:11:24 OBGyn Episode No OBEpisode recorded.
--- OUTSIDE RECORDS SUMMARY | 2024-10-17 14:51 | XMS_ITS | Encounter Summary ---
Author Organization [facility] Address [address] [place] [address] Care Team Providers Care Rooming House Operator Name Role Phone Salud Lester MD Primary Care Provider Arnulfo Mccollum MD Unavailable [phone] Laura Palma NP Unavailable [phone]- [phone] Encounter Details Date Type Department Care Team Description 09/10/2020 Commercial Sales Director Report Medical Records [address] [place] [address] AkshatAnton fitzpatrickcecy Social History Tobacco Use Types [...] on filedocumented in this encounter Care Teams Rooming House Operator Relationship Specialty Start Date End Date Salud Lester MD PCP - General Internal Medicine 03/29/18 Arnulfo Wilks MD [address] [place] [address] Specialist Cardiovascular Disease 08/22/20 Laura Palma NP [address] [place] [address] Cardiology 08/22/20 documented as of this encounter
--- OUTSIDE RECORDS SUMMARY | 2024-10-17 14:51 | XMS_ITS | Encounter Summary ---
Author Organization [facility] Address [address] [place] [address] Care Team Providers Care Instructional Design Manager Name Role Phone Salud Lester MD Primary Care Provider Arnulfo Mccollum MD Unavailable [phone] Laura Palma NP Unavailable [phone] Reason for Visit * Reason Onset Date Comments Anticoagulation 03/23/2019 EGD - Dr Best 04/11/19 - Semaj Encounter Details Date Type Department Care Team Description 03/23/2019 Telephone Gastroenterology - [place] [address] [facility] [address] [place] [address] Jack Best MD [address] [facility] [address] [place] [address] Anticoagulation (EGD - Dr Best 04/11/19 - [...] EGD with DR Best on 04/11/19 @ [facility]. Patient on Eliquis./dg documented in this encounter Plan of Treatment Not on file documented as of this encounter Visit Diagnoses Not on filedocumented in this encounter Care Teams Instructional Design Manager Relationship Specialty Start Date End Date Salud Lester MD PCP - General Internal Medicine 03/29/18 Arnulfo Wilks MD [address] [place] [address] Specialist Cardiovascular Disease 08/22/20 Laura Palma NP [address] [place] [address] Cardiology 08/22/20 documented as of this encounter
== END 2024-10-17 15:06 | disposition home or self-care (01) ==
LOC: HO.HMCC 13:40
PROVIDERS: PCP Internal Medicine; Visit Provider Internal Medicine
DX: R59.0 Localized enlarged lymph nodes (principal); N18.30 Chronic kidney disease, stage 3 unspecified; E11.9 Type 2 diabetes mellitus without complications; E03.9 Hypothyroidism, unspecified; M54.2 Cervicalgia

== ENCOUNTER 2024-10-24 13:38 | Outpatient (REF) | payer MEDICARE, MEDICAID, SELFPAY ==
--- NOTE | ~2024-10-24 | US_ITS ---
EXAMINATION: US THYROID CLINICAL INFORMATION: Goiter COMPARISON: None available. TECHNIQUE: Linear transducer grayscale and color Doppler examination with attention to the region of the thyroid. FINDINGS: SIZE: Measurements of the thyroid lobes and nodules are given in sagittal, anteroposterior and transverse dimensions respectively. Right Thyroid Lobe: 3.8 x 2.3 x 1.9 cm, volume 8.7 mL. Parenchyma: The gland echotexture is normal. Thyroid vascularity is normal. Left Thyroid Lobe: 4.5 x 2.8 x 2.6 cm, volume 17.2 mL. Parenchyma: The gland echotexture is normal. Thyroid vascularity is normal. Isthmus: 0.3 cm in maximum AP dimension. Estimated total number of nodules greater than or equal to 1 cm: 2. Inbound Ingredient Logistics Specialist nodules are described as follows: 1. Location: Lower pole right thyroid lobe. Size: 1.0 x 1.1 x 1.1 cm, volume 0.56 mL. Nodule characteristics: Composition: Solid (2). Echogenicity: Hypoechoic (2). Shape: Not taller than wide (0). Margins: Smooth (0). Echogenic Foci: None (0). ACR TI-RADS total points: 4 ACR TI-RADS category: 4 2. Location: Upper pole left thyroid lobe. Size: 2.9 x 1.9 x 2.3 cm, volume 6.84 mL. Nodule characteristics: Composition: Solid/almost completely solid (2). Echogenicity: Very hypoechoic (3). Shape: Not taller than wide (0). Margins: Smooth (0). Echogenic Foci: None (0). ACR TI-RADS total points: 5 ACR TI-RADS category: 4 NODES: No lymphadenopathy is seen in the tissue surrounding the thyroid gland. US/US thyroid IMPRESSION: ACR TI-RADS category: 4 ACR TI-RADS RECOMMENDATION REFERENCE: Ultrasound-guided fine-needle aspiration, followup ultrasound, no further follow up. * TR1 (0 point) and TR2 (2 points): No FNA or follow up. * TR3 (3 points): FNA if more than or equal to 2.5 cm in maximum dimension, followup ultrasound in 1, 3 and 5 years if 1.5 to 2.4 cm in maximum dimension. * TR4 (4-6 points): FNA if more than or equal to 1.5 cm in maximum dimension, followup ultrasound in 1, 2, 3 and 5 years if 1 to 1.4 cm in maximum dimension. * TR5 (more than or equal to 7 points): FNA if more than or equal to 1 cm in maximum dimension, followup ultrasound every year for 5 years if 0.5 to 0.9 cm in maximum dimension. * TR3, TR4 or TR5 nodules that are below the size threshold for followup receive no follow up. Electronically signed by: Justin Randle MD 10/25/2024 09:27 AM EDT
--- OUTSIDE RECORDS SUMMARY | 2024-10-24 13:48 | XMS_ITS | Clinical Summary ---
Author Organization [facility] Address [address] [place] [address] Phone Care Team Providers Care Shingle Carrier Name Role Phone Salud Lester MD Primary Care Provider [phone] Allergies Active Allergy Reactions Criticality Noted Date [...] Active inhaler, assist devices (AEROCHAMBER PLUS FLOW-VU [facility]) 09/28/2018 Active sulfaSALAzine (AZULFIDINE) 500 mg tablet Take 500 mg by mouth 2 times daily. 11/18/2017 Active warfarin (COUMADIN) 5 mg tablet Take 5 mg by mouth See Admin Instructions. [place] [facility] managing INR's. Active Active Problems Problem Noted Date Diagnosed Date Aortic aneurysm ([facility] V24) 09/03/2020 Overview (04/04/2024): Last Assessment & Plan: -Dilated at 4.4 cm from July 2019 -Discussed strict blood pressure control Carotid artery disease ([facility] V24) 09/03/2020 Overview (04/04/2024): Last Assessment & Plan: -50-69% LICA disease from September 2018 -followed by Dr. Lange of [facility] Chronic atrial fibrillation ([facility] V24, [facility] V28) 09/03/2020 Overview (04/04/2024): Last [...] controlled at this time on diltiazem, continue -[id number] = 6 (age, gender, HTN, CHF, DM), continue anticoagulation with warfarin. Risks and benefits of anticoagulation have thoroughly reviewed with the patient she verbalized understanding and agrees to continue. Bilateral bunions 09/26/2018 Diabetic polyneuropathy asso ciated with type 2 diabetes mellitus ([facility] V24, [facility] V28) 09/26/2018 Hammer toe of left foot 09/26/2018 Esophageal reflux 12/29/2017 Rheumatoid arthritis ([facility] V[facility], [facility] V28) 11/18/2017 Hypertension 07/07/2016 Overview (04/04/2024): Last Assessment & Plan: 110/64 Continue diltiazem, furosemide, and lisinopril at current doses. Anxiety 04/09/2016 Paroxysmal atrial fibrillation ([facility] V24, [facility] V28) 04/09/2016 DVT (deep venous thrombosis) ([facility] V24, [facility] V28) 04/02/2016 Diabetes mellitus type 2, un complicated ([facility] V24, [facility] V28) 03/24/2016 Chronic obstructive pulmonar y disease ([facility] V24, [facility] V28) 03/05/2016 Hyperlipidemia 03/05/2016 Pulmonary embolism ([facility] V24, [facility] V28) Congestive heart failure ([facility] V[facility], [facility] V 28) 02/13/2016 Overview (04/04/2024): Last Assessment [...] AM EDT Office Visit Orthopedic Surgery - [address] [address] Vinny Yates, MARTHAM Krista nixon, right (Primary Dx); Acquired hallux valgus of right foot; Acquired hallux valgus of left foot; Dermatophytosis of nail; Hammer toe of left foot; Type II diabetes mellitus with peripheral circulatory disorder ([facility] V24, [facility] V28); Corns and callosities; Metatarsalgia of both feet; Pain in toe of left foot; Diabetic mononeuropathy simplex ([facility] V24, [facility] V28); Pain in toe of right foot [...] AM EDT Office Visit Orthopedic Surgery - [place] [address] [phone] Vinny Yates, DPM [address] [address] Health Maintenance Due Date Last Done Comments [...] Insurance MEDICARE [place]ICAID - [place] Care Teams Shingle Carrier Relationship Specialty Start Date End Date Salud Lester MD [address] [place] [phone] PCP - General Internal Medicine 03/29/18
== END 2024-10-24 13:39 | disposition home or self-care (01) ==
LOC: HO.HMGCX 13:38
PROVIDERS: PCP Internal Medicine; Visit Provider Internal Medicine
DX: R59.0 Localized enlarged lymph nodes (principal)
CPT/HCPCS: 76536

== ENCOUNTER → 2024-10-24 13:40 | Outpatient (BNV) | payer MEDICARE, MEDICAID, SELFPAY | PROVIDERS: PCP Internal Medicine; Visit Provider Radiology Diagnostic Radiology | DX: E04.9 Nontoxic goiter, unspecified (principal) | CPT/HCPCS: 76536 ==

== ENCOUNTER 2024-11-02 14:41 | Outpatient (AMB) | payer MEDICARE, MEDICAID, SELFPAY ==
--- NOTE | 2024-11-02 14:43 | A.OFFVIS_ITS ---
Vital Signs 11/02/24 14:45 Height 5 ft 6 in Weight 239 lb 3.225 oz BMI 38.6 BP 146/72 H Blood Pressure Location Lt brachial Position Sitting Pulse 68 Pulse Source Pulse Oximeter Pulse Oximetry (%) 92 Oxygen Delivery Method Room Air Intake Visit Reasons: Nontoxic multinodular goiter Intake Note: Patient present today for Nontoxic multinodular goiter office visit. Strand Galvanizer Required: No Accompanied by: Daughter Allergies atorvastatin [From Lipitor] Allergy (Unknown, Verified 11/02/24 14:51) Leg cramps ciprofloxacin [From Cipro] Allergy (Unknown, Verified 11/02/24 14:51) Stomach Upset ezetimibe [From Zetia] Allergy (Unknown, Verified 11/02/24 14:51) leg cramps hydrochlorothiazide [From Avalide] Allergy (Unknown, Verified 11/02/24 14:51) Stomach Upset infliximab [From Remicade] Allergy (Unknown, Verified 11/02/24 14:51) Infection irbesartan [From Avalide] Allergy (Unknown, Verified 11/02/24 14:51) Stomach Upset metformin Allergy (Unknown, Verified 11/02/24 14:51) nausea moxifloxacin [From Avelox] Allergy (Unknown, Verified 11/02/24 14:51) Stomach Upset nifedipine Allergy (Unknown, Verified 11/02/24 14:51) upset stomach pravastatin Allergy (Unknown, Verified 11/02/24 14:51) stomach upset rosuvastatin [From Crestor] Allergy (Unknown, Verified 11/02/24 14:51) Leg cramps terazosin [From Hytrin] Allergy (Unknown, Verified 11/02/24 14:51) Stomach Upset valsartan [From Diovan] Allergy (Unknown, Verified 11/02/24 14:51) Stomach Upset warfarin [WARFARIN] Allergy (Unknown, Verified 11/02/24 14:51) Anaphylaxis Medication List - Last Reconciled 11/02/24 by Guerita Stanley MD acetaminophen ER (Tylenol 8 Hour) 1,300 mg PO Q8H albuterol sulfate 0.63 mg (3 mL) inhalation Q4-6H PRN apixaban (Eliquis) 5 mg PO BID baclofen 10 mg PO BEDTIME blood sugar diagnostic As directed blood sugar diagnostic (FreeStyle Test strips) check glucose once a day blood-glucose meter As directed compr.stocking,knee,long,x-lrg 10-20 mmHg diltiazem HCl ER 240 mg PO DAILY Farxiga (dapagliflozin propanediol) 5 mg PO DAILY NS fluticasone furoate-vilanterol 100-25 mcg/dose (Breo Ellipta) 1 inh inhalation DAILY folic acid 1 mg PO DAILY furosemide 40 mg PO BID gabapentin 300 mg PO TID 90 days glipizide 5 mg PO DAILY hospital bed As directed incontinence pad, liner, disp As directed levothyroxine 50 mcg PO QAM lisinopril 5 mg PO BID meclizine 25 mg PO DAILY PRN pantoprazole 40 mg PO DAILY@0600 potassium chloride ER 20 mEq (2 x 10 mEq) PO DAILY Shower Chair As directed tiotropium bromide (Spiriva with HandiHaler) 1 cap inhalation DAILY tramadol 100 mg PO TID 30 days HPI Comments Details: 83-year-old female coming in today for 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 Here today with daughter Soo. 10/24/2024: Ultrasound of the thyroid I reviewed the images myself which showed a right lower pole 1.1 cm solid hypoechoic TR 4 category nodule and a left superior 2.9 cm solid very hypoechoic TR 4 category nodule. It is hard to tell whether this is a spongiform nodule or very hypoechoic. I would lean towards biopsying it especially given size. She has not known about these nodules before. She is on levothyroxine 50 mcg daily for hypothyroidism for 3-5 years, most recent TSH from 10/17/2024 was unremarkable at 3.82. Patient currently denies heat or cold intolerance, diarrhea or constipation, hair loss, palpitation, anxiety, weight changes, changes in appearance of eyes or vision changes, increased diaphoresis or dry skin. ?Reports tremors. Reports low energy. Some low mood. Describes intermittent choking sensation and intermittent dysphagia. Denies voice changes. Describes pressure in the neck sometimes. Hard to lay flat but because of breathing. Patient denies any family history of thyroid cancer. Daughter has h ypothyroidism. PMHx: HTN DM RA COPD PShx: Physical exam General: sitting comfortably in no acute distress HEENT: normocephalic/atraumatic, Neck: supple, palpable 2 cm left-sided nodule Cardiac: normal heart sounds Pulm: normal breath sounds B/L, no added breath sounds Abd: not distended, no tenderness Extremities: no edema, no signs of myxedema Neuro: AAO x3, Speech: normal, no facial droop, moving all 4 extremities Laboratory Tests 10/17/24 15:15 TSH 3.82 EXAMINATION: US THYROID CLINICAL INFORMATION: Goiter COMPARISON: None available. TECHNIQUE: Linear transducer grayscale and color Doppler examination with attention to the region of the thyroid. FINDINGS: SIZE: Measurements of the thyroid lobes and nodules are given in sagittal, anteroposterior and transverse dimensions respectively. Right Thyroid Lobe: 3.8 x 2.3 x 1.9 cm, volume 8.7 mL. Parenchyma: The gland echotexture is normal. Thyroid vascularity is normal. Left Thyroid Lobe: 4.5 x 2.8 x 2.6 cm, volume 17.2 mL. Parenchyma: The gland echotexture is normal. Thyroid vascularity is normal. Isthmus: 0.3 cm in maximum AP dimension. Estimated total number of nodules greater than or equal to 1 cm: 2. Financial Retirement Plan Specialist nodules are described as follows: 1. Location: Lower pole right thyroid lobe. Size: 1.0 x 1.1 x 1.1 cm, volume 0.56 mL. Nodule characteristics: Composition: Solid (2). Echogenicity: Hypoechoic (2). Shape: Not taller than wide (0). Margins: Smooth (0). Echogenic Foci: None (0). ACR TI-RADS total points: 4 ACR TI-RADS category: 4 2. Location: Upper pole left thyroid lobe. Size: 2.9 x 1.9 x 2.3 cm, volume 6.84 mL. Nodule characteristics: Composition: Solid/almost completely solid (2). Echogenicity: Very hypoechoic (3). Shape: Not taller than wide (0). Margins: Smooth (0). Echogenic Foci: None (0). ACR TI-RADS total points: 5 ACR TI-RADS category: 4 NODES: No lymphadenopathy is seen in the tissue surrounding the thyroid gland. US/US thyroid IMPRESSION: ACR TI-RADS category: 4 [facility] Medical History Ankle pain, right Hypokalemia LILY (obstructive sleep apnea) (HFpEF) heart failure with preserved ejection fraction Depression Physical deconditioning Cervical radiculopathy due to degenerative joint disease of spine Venous insufficiency Recurrent pulmonary embolism Diabetes Hyperlipidemia Hemorrhoids Obesity Rheumatoid arthritis COPD (chronic obstructive pulmonary disease) Atrial fibrillation Hypertension Surgical History History of carpal tunnel syndrome History of surgery Family History Father No problems noted. Mother No problems noted. 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 10/24/2024: Ultrasound of the thyroid I reviewed the images myself which showed a right lower pole 1.1 cm solid hypoechoic TR 4 category nodule and a left superior 2.9 cm solid very hypoechoic TR 4 category nodule. It is hard to tell whether this is a spongiform nodule or very hypoechoic. I would lean towards biopsying it especially given size. She has not known about these nodules before. That she feels that over the past 2-3 months she has noticed increase fullness in the neck with some compression symptoms. She is on levothyroxine 50 mcg daily for hypothyroidism for 3-5 years, most recent TSH from 10/17/2024 was unremarkable at 3.82. I explained that it is common to have thyroid nodules. About 95% of the time these nodules are benign. However if the nodule is > 1 cm in size or suspicious on ultrasound then a fine need aspiration biopsy is recommended. We discussed that a FNAB involves 4-5 passes with a small gauge needle and material obtained is sent off for cytology.If the cytopathology is benign then the nodule will be followed annually with repeat ultrasounds. However if it is suspicious or malignant, we will need to discuss further management. Indeterminate cytology can be further investigated with repeat FNA, genetic testing or empiric lobectomy. Malignant cytology is managed with either lobectomy or total thyroidectomy. We discussed briefly that thyroid cancer is, in most patients, an indolent disease that does not affect mortality. We will arrange for FNA of the left superior 2.9 cm thyroid nodule at next available opening and patient will follow up with me in clinic thereafter for results and further decision making. Plan: -scheduled for FNA of the left superior 2.9 cm thyroid nodule and a follow up 2 weeks after to discuss results Plan I spent 45 minutes in reviewing the record, seeing the patient and documenting in the medical record. Orders: Orders US biopsy thyroid Today E04.2 - Nontoxic multinodular goiter Coding Level of Care Code New Pt Level 4 (46144) Diagnoses Multinodular goiter E04.2 Time Spent (min) 45
[2024-11-02 14:45] VITALS: BP 146/72; PULSE 68; O2SAT 92; BMI 38.6
--- OUTSIDE RECORDS SUMMARY | 2024-11-02 17:19 | XMS_ITS | Encounter Summary ---
Author Organization [facility] Address [address] [place] [address] Care Team Providers Care Concrete Bucket Loader Name Role Phone Salud Lester MD Primary Care Provider Arnulfo Mccollum MD Unavailable [phone] Laura Palma NP Unavailable [phone]- [phone] Encounter Details Date Type Department Care Team Description 09/10/2020 Forensic Pathologist Report Medical Records [address] [place] [id number] AkshatAnton fitzpatrickcecy Social History Tobacco Use Types [...] on filedocumented in this encounter Care Teams Concrete Bucket Loader Relationship Specialty Start Date End Date Salud Lester MD PCP - General Internal Medicine 03/29/18 Arnulfo Wilks MD [address] [place] [id number] Specialist Cardiovascular Disease 08/22/20 Laura Palma NP [address] [place] [id number] Cardiology 08/22/20 documented as of this encounter
== END 2024-11-02 15:21 | disposition home or self-care (01) ==
LOC: HO.ENCR 14:43
PROVIDERS: PCP Internal Medicine; Visit Provider Student in an Organized Health Care Education/Training Program
DX: E04.2 Nontoxic multinodular goiter (principal)
CPT/HCPCS: 99204

== ENCOUNTER → 2024-11-02 14:41 | Outpatient (BNVA) | payer MEDICARE, MEDICAID, SELFPAY | PROVIDERS: PCP Internal Medicine; Visit Provider Student in an Organized Health Care Education/Training Program | DX: E04.2 Nontoxic multinodular goiter (principal) | CPT/HCPCS: 99202 ==

== ENCOUNTER 2024-11-08 07:18 | Outpatient (REF) | payer MEDICARE, MEDICAID, SELFPAY ==
--- OUTSIDE RECORDS SUMMARY | 2024-11-08 07:20 | XMS_ITS | Encounter Summary ---
Author Organization [facility] Address [address] [place] [address] Care Team Providers Care Rehabilitation Clerk Name Role Phone Salud Lester MD Primary Care Provider Arnulfo Mccollum MD Unavailable [phone] Laura Palma NP Unavailable [phone]- [phone] Encounter Details Date Type Department Care Team Description 09/10/2020 Induction Machine Setter Report Medical Records [address] [place] [id number] AkshatAnton fitzpatrickcecy Social History Tobacco Use Types [...] on filedocumented in this encounter Care Teams Rehabilitation Clerk Relationship Specialty Start Date End Date Salud Lester MD PCP - General Internal Medicine 03/29/18 Arnulfo Wilks MD [address] [place] [id number] Specialist Cardiovascular Disease 08/22/20 Laura Palma NP [address] [place] [id number] Cardiology 08/22/20 documented as of this encounter
--- NOTE | 2024-11-08 08:50 | PM.PROC ---
Brief Operative Note Date of procedure: 11/08/24 Pre-op diagnosis: left superior 2.9 cm thyroid nodule FNA biopsy Post-op diagnosis: same Procedure: THYROID FINE NEEDLE ASPIRATION PROCEDURE NOTE ? PROCEDURE PERFORMED: Ultrasound-guided FNA of thyroid nodule ? OPERATORS: Dr. Guerita Stanley ? INDICATION: left superior 2.9 cm thyroid nodule FNA ; FNA performed to assess for malignancy ? DESCRIPTION OF PROCEDURE: The indications for FNA (to assess for malignancy) were reviewed with the patient in detail. Potential complications (e.g., bleeding, infection, damage to local structures, absence of clear diagnosis after FNA) were reviewed. Alternatives to FNA including conservative observation or surgery were described. The patient understood and agreed to proceed. This was documented by the signing of the written informed consent form. A time-out was performed to confirm the patient's identity and the site of planned FNA. The nodule of interest was identified using ultrasound (14 MHz linear array probe). The site of FNA was then draped in the usual fashion and carefully cleaned and prepared using alcohol swabs. The skin at the previously-identified site of needle insertion was iced and sprayed with numbing spray. Under ultrasound guidance, _4_ passes were performed using a 1.5-inch, 25-gauge needle, and sample was obtained via capillary action. The needle tip was clearly visualized to be within the nodule at the time of sampling for _4_ of 4__ passes [Insert image recorded as part of the procedure] The patient tolerated the procedure well. There were no immediate complications. A small adhesive bandage was applied, and the patient was advised to take acetaminophen (rather than NSAIDs) for any discomfort and to report any signs of inflammation/infection or marked swelling. IMPRESSION: Technically successful ultrasound-guided fine needle aspiration of left superior 2.9 cm thyroid nodule . PLAN: The patient was advised that I will provide follow-up regarding the cytology result and any subsequent plans. Guerita Stanley MD Endocrinology Attending Condition: stable Disposition: same day
== END 2024-11-08 07:19 | disposition home or self-care (01) ==
LOC: HO.US 07:18
PROVIDERS: PCP Internal Medicine; Visit Provider Student in an Organized Health Care Education/Training Program
DX: E04.2 Nontoxic multinodular goiter (principal)
CPT/HCPCS: 10005; 88173

== ENCOUNTER → 2024-11-08 07:18 | Outpatient (BNV) | payer MEDICARE, MEDICAID, SELFPAY | PROVIDERS: PCP Internal Medicine; Visit Provider Student in an Organized Health Care Education/Training Program | DX: E04.1 Nontoxic single thyroid nodule (principal) | CPT/HCPCS: 10005 ==

== ENCOUNTER 2024-11-22 14:34 | Outpatient (AMB) | payer MEDICARE, MEDICAID, SELFPAY ==
[2024-11-22 14:35] VITALS: BP 114/58; PULSE 68; O2SAT 97; BMI 38.1
--- NOTE | 2024-11-22 14:35 | A.OFFVIS_ITS ---
Vital Signs 3 11/22/24 14:35 Height 5 ft 6 in Weight 236 lb 1.841 oz BMI 38.1 BP 114/58 L Blood Pressure Location Lt brachial Position Sitting Pulse 68 Pulse Source Pulse Oximeter Pulse Oximetry (%) 97 Oxygen Delivery Method Room Air Intake Visit Reasons: Biopsy f/u Intake Note: Patient present today for follow up to biopsy. Distribution Systems Superintendent Required: No Accompanied by: Daughter Allergies atorvastatin (From Lipitor) Allergy (Unknown, Verified 11/22/24 14:40) Leg cramps ciprofloxacin (From Cipro) Allergy (Unknown, Verified 11/22/24 14:40) Stomach Upset ezetimibe (From Zetia) Allergy (Unknown, Verified 11/22/24 14:40) leg cramps hydrochlorothiazide (From Avalide) Allergy (Unknown, Verified 11/22/24 14:40) Stomach Upset infliximab (From Remicade) Allergy (Unknown, Verified 11/22/24 14:40) Infection irbesartan (From Avalide) Allergy (Unknown, Verified 11/22/24 14:40) Stomach Upset metformin Allergy (Unknown, Verified 11/22/24 14:40) nausea moxifloxacin (From Avelox) Allergy (Unknown, Verified 11/22/24 14:40) Stomach Upset nifedipine Allergy (Unknown, Verified 11/22/24 14:40) upset stomach pravastatin Allergy (Unknown, Verified 11/22/24 14:40) stomach upset rosuvastatin (From Crestor) Allergy (Unknown, Verified 11/22/24 14:40) Leg cramps terazosin (From Hytrin) Allergy (Unknown, Verified 11/22/24 14:40) Stomach Upset valsartan (From Diovan) Allergy (Unknown, Verified 11/22/24 14:40) Stomach Upset warfarin (WARFARIN) Allergy (Unknown, Verified 11/22/24 14:40) Anaphylaxis HPI Comments Details: 83-year-old female coming in today for follow up of nontoxic multinodular goiter. Here today with daughter Soo. HPI 10/24/2024: Ultrasound of the thyroid I reviewed the images myself which showed a right lower pole 1.1 cm solid hypoechoic TR 4 category nodule and a left superior 2.9 cm solid very hypoechoic TR 4 category nodule. It is hard to tell whether this is a spongiform nodule or very hypoechoic. I would lean towards biopsying it especially given size. She has not known about these nodules before. She is on levothyroxine 50 mcg daily for hypothyroidism for 3-5 years, most recent TSH from 10/17/2024 was unremarkable at 3.82. Patient currently denies heat or cold intolerance, diarrhea or constipation, hair loss, palpitation, anxiety, weight changes, changes in appearance of eyes or vision changes, increased diaphoresis or dry skin. ?Reports tremors. Reports low energy. Some low mood. Describes intermittent choking sensation and intermittent dysphagia. Denies voice changes. Describes pressure in the neck sometimes. Hard to lay flat but because of breathing. Patient denies any family history of thyroid cancer. Daughter has hypothyroidism. PMHx: HTN DM RA COPD Interval history 11/08/2024: Status post FNA of the right superior 2.9 cm nodule which came back as nondiagnostic. It was an acellular aspirate. When I was looking at the nodule myself with the ultrasound during the biopsy, it is very much a spongiform nodule. At this time we will hold off on repeating a biopsy given low risk appearance with a very low suspicion nodule with a chance of malignancy less than 3%. Based on appearance. I will have her repeat an ultrasound in 1 year. Physical exam General: sitting comfortably in no acute distress HEENT: normocephalic/atraumatic, Neck: supple, palpable 2 cm left-sided nodule Cardiac: normal heart sounds Pulm: normal breath sounds B/L, no added breath sounds Abd: not distended, no tenderness Extremities: no edema, no signs of myxedema Neuro: AAO x3, Speech: normal, no facial droop, moving all 4 extremities Laboratory Tests 10/17/24 15:15 TSH 3.82 EXAMINATION: US THYROID CLINICAL INFORMATION: Goiter COMPARISON: None available. TECHNIQUE: Linear transducer grayscale and color Doppler examination with attention to the region of the thyroid. FINDINGS: SIZE: Measurements of the thyroid lobes and nodules are given in sagittal, anteroposterior and transverse dimensions respectively. Right Thyroid Lobe: 3.8 x 2.3 x 1.9 cm, volume 8.7 mL. Parenchyma: The gland echotexture is normal. Thyroid vascularity is normal. Left Thyroid Lobe: 4.5 x 2.8 x 2.6 cm, volume 17.2 mL. Parenchyma: The gland echotexture is normal. Thyroid vascularity is normal. Isthmus: 0.3 cm in maximum AP dimension. Estimated total number of nodules greater than or equal to 1 cm: 2. Chief Deputy nodules are described as follows: 1. Location: Lower pole right thyroid lobe. Size: 1.0 x 1.1 x 1.1 cm, volume 0.56 mL. Nodule characteristics: Composition: Solid (2). Echogenicity: Hypoechoic (2). Shape: Not taller than wide (0). Margins: Smooth (0). Echogenic Foci: None (0). ACR TI-RADS total points: 4 ACR TI-RADS category: 4 2. Location: Upper pole left thyroid lobe. Size: 2.9 x 1.9 x 2.3 cm, volume 6.84 mL. Nodule characteristics: Composition: Solid/almost completely solid (2). Echogenicity: Very hypoechoic (3). Shape: Not taller than wide (0). Margins: Smooth (0). Echogenic Foci: None (0). ACR TI-RADS total points: 5 ACR TI-RADS category: 4 NODES: No lymphadenopathy is seen in the tissue surrounding the thyroid gland. US/US thyroid IMPRESSION: ACR TI-RADS category: 4 PFSH Medical History Ankle pain, right Hypokalemia LILY (obstructive sleep apnea) (HFpEF) heart failure with preserved ejection fraction Depression Physical deconditioning Cervical radiculopathy due to degenerative joint disease of spine Venous insufficiency Recurrent pulmonary embolism Diabetes Hyperlipidemia Hemorrhoids Obesity Rheumatoid arthritis COPD (chronic obstructive pulmonary disease) Atrial fibrillation Hypertension Surgical History History of carpal tunnel syndrome History of surgery Family History Father No problems noted. Mother No problems noted. Social History Household Members: Family Housing: House Do you presently have visiting nurse or other home services: No Alcohol intake: never Patient Tobacco Use Status: Never used Tobacco e-Cigarette/Vaping Use: Never Used service: No Current occupational status: retired Cognitive needs: No Hearing needs: No Vision needs: Yes Physical Exam Vital Signs: Last Vital Signs Pulse 68 11/22/24 14:35 BP 114/58 L 11/22/24 14:35 Pulse Ox 97 11/22/24 14:35 Oxygen Delivery Method Room Air 11/22/24 14:35 BMI result Body Mass Index 38.1 Assessment & Plan Assessment & Plan (1) Multinodular goiter: Code(s): E04.2 - Nontoxic multinodular goiter Category: Medical Plan: 83-year-old female with no family history of thyroid cancer with no personal history of head or neck radiation, coming in today for follow up of nontoxic multinodular goiter. 10/24/2024: Ultrasound of the thyroid I reviewed the images myself which showed a right lower pole 1.1 cm solid hypoechoic TR 4 category nodule and a left superior 2.9 cm solid very hypoechoic TR 4 category nodule. It is hard to tell whether this is a spongiform nodule or very hypoechoic. I would lean towards biopsying it especially given size. She has not known about these nodules before. That she feels that over the past 2-3 months she has noticed increase fullness in the neck with some compression symptoms. She is on levothyroxine 50 mcg daily for hypothyroidism for 3-5 years, most recent TSH from 10/17/2024 was unremarkable at 3.82. 11/08/2024: Status post FNA of the right superior 2.9 cm nodule which came back as nondiagnostic. It was an acellular aspirate. When I was looking at the nodule myself with the ultrasound during the biopsy, it is very much a spongiform nodule. At this time we will hold off on repeating a biopsy given low risk appearance with a very low suspicion nodule with a chance of malignancy less than 3%. Based on appearance. I will have her repeat an ultrasound in 1 year. plan: -ordered ultrasound of the thyroid to be done in September 2025 with follow up in October 2025 -ordered TSH with reflex free T4 to be done prior to follow up in October 2025 Plan See above Orders: Orders 2 US thyroid 10/08/25 E04.2 - Nontoxic multinodular goiter TSH reflex Free T4 10/08/25 E04.2 - Nontoxic multinodular goiter Patient Instructions: Do ultrasound of the thyroid in September 2025, someone we will call you to schedule this, please make sure this is done a few weeks prior to your follow up in October 2025 Do blood work a few days prior to your follow up in 10/2025, orders placed. Coding Level of Care Code Est Pt Level 3 (14017) Diagnoses Multinodular goiter E04.2
== END 2024-11-22 14:54 | disposition home or self-care (01) ==
LOC: HO.ENCR 14:34
PROVIDERS: PCP Internal Medicine; Visit Provider Student in an Organized Health Care Education/Training Program
DX: E04.2 Nontoxic multinodular goiter (principal)
CPT/HCPCS: 99213

== ENCOUNTER → 2024-11-22 14:34 | Outpatient (BNVA) | payer MEDICARE, MEDICAID, SELFPAY | PROVIDERS: PCP Internal Medicine; Visit Provider Student in an Organized Health Care Education/Training Program | DX: E04.2 Nontoxic multinodular goiter (principal) | CPT/HCPCS: 99212 ==

== ENCOUNTER 2024-11-28 07:16 | Outpatient (REF) | payer MEDICARE, MEDICAID, SELFPAY ==
[2024-11-28 10:09] LABS: MANUAL DIFF FLAG NO
[2024-11-28 10:16] LABS: Hematocrit 45.1 % (37.0-47.0); Hemoglobin 14.5 g/dl (12.0-16.0); Imm Gran Abs Auto 0.02 X10*3/uL (0.00-0.03); Imm Gran Pct Auto 0.4 % (0.0-0.4); Lymphocytes Absolute Auto 1.2 X10*3/uL (1.2-4.9); Mean Corpuscular HGB Conc 32.2 g/dl (31.0-35.0); Mean Corpuscular Hemoglobin 30.5 pg (27.0-33.0); Mean Corpuscular Volume 94.9 fL (80.0-98.0); NRBC Abs Auto 0.000 X10*3/uL (0.0-0.012); NRBC Pct Auto 0.0 /100WBC (0.0-0.2); Platelet Count 199 X10*3/uL (160-400); Red Blood Count 4.75 X10*6/uL (4.20-5.50); White Blood Count 5.1 X10*3/uL (4.8-10.8)
[2024-11-28 10:44] LABS: Alanine Aminotransferase 10 U/L (0-31); Albumin Level 4.0 g/dL (3.5-5.0); Alkaline Phosphatase 112 U/L (39-117); Anion Gap 16 (12-20); Aspartate Amino Transferase 24 U/L (5-31); Blood Urea Nitrogen 18 mg/dL (9-16); Calcium 9.3 mg/dL (8.4-10.2); Carbon Dioxide 29 mmol/L (22-29); Chloride 100 mmol/L (96-108); Cholesterol 241 mg/dL (<200); Estimated Glomerular Filt Rate > 60; HDL Cholesterol 34 mg/dL (>40); Potassium 3.9 mmol/L (3.3-5.1); Sodium 141 mmol/L (135-145); Total Protein 7.0 g/dL (6.5-8.0); Triglycerides 291 mg/dL (<150)
[2024-11-28 11:26] LABS: Microalbum/Creatinine Ratio Ur 6.0 ug/mg cr (<30)
== END 2024-11-28 07:17 | disposition home or self-care (01) ==
LOC: HO.HMGCLDS 07:16
PROVIDERS: PCP Internal Medicine; Referring Provider Student in an Organized Health Care Education/Training Program; Visit Provider Internal Medicine
DX: M05.79 Rheumatoid arthritis with rheumatoid factor of multiple sites without organ or systems involvement (principal); E03.9 Hypothyroidism, unspecified; I10 Essential (primary) hypertension; I50.30 Unspecified diastolic (congestive) heart failure; I48.91 Unspecified atrial fibrillation
CPT/HCPCS: 36415; 80053; 80061; 82043; 82570; 85025; 85652; 86140

== ENCOUNTER 2024-12-06 08:25 | Outpatient (AMB) | payer MEDICARE, MEDICAID, SELFPAY ==
--- OUTSIDE RECORDS SUMMARY | 2024-12-06 08:36 | XMS_ITS | Clinical Summary ---
Author Organization [facility] Address [address] [place] [address] Phone Care Team Providers Care Tool Hardener Name Role Phone Salud Lester MD Primary Care Provider [phone] Allergies Active Allergy Reactions Criticality Noted Date [...] Active inhaler, assist devices (AEROCHAMBER PLUS FLOW-VU [facility]) 09/28/2018 Active sulfaSALAzine (AZULFIDINE) 500 mg tablet Take 500 mg by mouth 2 times daily. 11/18/2017 Active warfarin (COUMADIN) 5 mg tablet Take 5 mg by mouth See Admin Instructions. [facility] managing INR's. Active Active Problems Problem Noted Date Diagnosed Date Aortic aneurysm ([facility] V24) 09/03/2020 Overview (04/04/2024): Last Assessment & Plan: -Dilated at 4.4 cm from July 2019 -Discussed strict blood pressure control Carotid artery disease ([facility] V24) 09/03/2020 Overview (04/04/2024): Last Assessment & Plan: -50-69% LICA disease from September 2018 -[place]. Lange [place] [facility] [place] Chronic atrial fibrillation ([facility] V24, [facility] V28) 09/03/2020 Overview (04/04/2024): Last [...] controlled at this time on diltiazem, continue -[id number] = 6 (age, gender, HTN, CHF, DM), continue anticoagulation with warfarin. Risks and benefits of anticoagulation have thoroughly reviewed with the patient she verbalized understanding and agrees to continue. Bilateral bunions 09/26/2018 Diabetic polyneuropathy asso ciated with type 2 diabetes mellitus ([facility] [place], [facility] V28) 09/26/2018 Hammer toe of left foot 09/26/2018 Esophageal reflux 12/29/2017 Rheumatoid arthritis ([facility] V24, [facility] V28) 11/18/2017 Hypertension 07/07/2016 Overview (04/04/2024): Last Assessment & Plan: 110/64 Continue diltiazem, furosemide, and lisinopril at current doses. Anxiety 04/09/2016 Paroxysmal atrial fibrillation ([facility] V[facility], [facility] V28) 04/09/2016 DVT (deep venous thrombosis) ([facility] V24, [facility] V28) 04/02/2016 Diabetes mellitus type 2, un complicated ([facility] V24, [facility] V28) 03/24/2016 Chronic obstructive pulmonar y disease ([facility] V24, [facility] V28) 03/05/2016 Hyperlipidemia 03/05/2016 Pulmonary embolism ([facility] V[facility], [facility] V28) Congestive heart failure ([facility] V[facility], [facility] V 28) 02/13/2016 Overview (04/04/2024): Last [...] Encounters Date Type Department Care Team Description 12/05/2024 8:45 AM EDT Office Visit Orthopedic Surgery [place] [address] [phone] Vinny Yates, JUDD Neal's christianoe, right (Primary Dx); Acquired hallux valgus of right foot; Acquired hallux valgus of left foot; Dermatophytosis of nail; Hammer toe of left foot; Diabetic mononeuropathy simplex ([facility] V24, [facility] V28); Metatarsalgia of both feet; Pain in toe of left foot; Type II diabetes mellitus with peripheral circulatory disorder ([facility] V24, [facility] V28); Corns and callosities; Pain in toe of right foot 10/05/2024 8:45 AM EDT Office Visit Orthopedic Surgery [facility] [address] [phone] Vinny Yates DPM Tailor's christianoe, right (Primary Dx); Acquired hallux valgus of right foot; Acquired hallux valgus of left foot; Dermatophytosis of nail; Hammer toe of left foot; Type II diabetes mellitus with peripheral circulatory disorder ([facility] V24, CMS/HCC V28); Corns and callosities; Metatarsalgia of both feet; Pain in toe of left foot; Diabetic mononeuropathy simplex ([facility] V24, [facility] V28); Pain in toe of right foot [...] Care Team (Late st Contact Info) Description 03/08/2025 8:30 AM EDT Office Visit Orthopedic Surgery - [place] [address] [phone] Vinny Yates, DPM [address] [address] Health Maintenance Due Date Last Done Comments [...] Hypertension/CHF/CAD Annual BMP Blood Test 05/15/2022 10/04/2018 Influenza Vaccine (#1) 2025 , 03/02/2023, 03/25/2022, Additional history exists DTaP,Tdap,and Td Vaccines (4 - Td or Tdap) 02/08/2033 02/08/2023, 10/23/2011, 10/23/2011, Additional history exists HIB Vaccines Aged Out [...] Insurance MEDICARE [place]ICA[place] - [place] Care Teams Tool Hardener Relationship Specialty Start Date End Date Salud Lester MD [address] [place] [address] PCP - General Internal Medicine 03/29/18
--- OUTSIDE RECORDS SUMMARY | 2024-12-06 08:36 | XMS_ITS | Data Portability ---
Author Organization [facility] Address [address] [place] [address] Assessment No assessment recorded. Plan of Treatment Reminders Order Date Submit Date Provider Last Modified By Organization Details Last Modified Time Details Appointments None recorded. Lab None recorded. Referral None recorded. Procedures None recorded. Surgeries None recorded. Imaging None recorded. Medication Orders acetaminoph en 300 mg-codeine 30 mg tablet 2024 025 [id number], [address], [place], [phone], 5 14:45:38 acetaminoph en 300 mg-codeine 30 mg tablet 2023 024 [id number], [address], [place], [phone], 4 16:15:32 Patient TargetsNo targets recorded. Patient [...] Address Organization Details Recorded Time No complaints 911047126 Active Status : 'I'; Not Available [facility] 4 09:24:55 Pain of joint of knee 3227450520 Active 2021 Status : 'A'; Not Available [facility] 4 11:57:34 Problem Notes None recorded. Procedures Surgical History Date Name Laterality Status Provider Name and Address Organization Details Recorded Time 5 Gel-One Knee Injection completed Singh Iyer PA-C [address], [place], [address], [facility] 06/16/2024 13:09:53 4 Gel-One Knee Injection completed Singh Iyer PA-C [address], [place], [address], [facility] 10/28/2023 16:49:54 Imaging Results None recorded. Procedure Notes None recorded. Medical Equipment None Reported. Allergies Allergen ID Allergen Name Allergen Category Reaction Reaction Severity Criticality Documentation Date Start Date Code Code System Note Provider Name and Address Organization Details Recorded Time 149763 warfarin medicatio n Not available Not available Not available 10/28/2023 24901 RxNorm JAMEEL TANG [facility] 4 15:51:31 [id number] Remicade medicatio n Not available Not available Not available 10/28/2023 32591 0 RxNorm JAMEEL CRAMERY [facility] 4 15:51:37 Medications Name Sig Start Date [...] Available sulfasalazi ne sulfaSALA zine 500MG Tablet 08/13 completed Statu s: 'Disc ontin ued'; Not Available Not Available Not Available salsalate Salsalate 500MG Tablet as directed 03/11/ 2005 03/16 /2022 completed Statu s: 'Disc ontin [...] t Available Vitals Date Recorded Body height Provider Name an d Address Organization Details Last Updated DateTime 06/16/2024 167.64 cm MELYSSA GARCIA [facility] 06/16/2024 14:33:40 Date Recorded Body height Body mass index (BMI) Body weight Provider Name and Address Organization Details Last Updated DateTime 10/28/2023 167.64 cm 42 kg/m2 430308.02 g JAMEEL [facility] 10/28/2023 15:51:04 Social History None recorded. Functional Status None recorded. Mental Status None recorded. Family History Nothing Reported. Medical History No medical history recorded. Gynecological HistoryNo gynecological history recorded. Obstetrics History GPAL:G 0 P 0 0 0 0 Past Encounters Encounter ID Performer Location Encounter Start Date Encounter Closed Date Diagnosis/Indication Diagnosis SNOMED-CT Code Diagnosis ICD10 Code Diagnosis Note [id number] [facility] [address] [place] [address] 10/28/2023 15:30:03 11/29/2023 07:40:35 Osteoarthritis of right knee joint 5022516586 02356 M17.11 Osteoarthr itis of knee 052203316 M17.9 Osteoarthr itis of left knee joint 0298862058 08683 M17.12 [id number] [facility] [address] [place] [address] 06/16/2024 14:28:32 06/27/2024 12:30:26 Osteoarthritis of right knee joint 5544721149 04401 M17.11 Osteoarthr itis of left knee joint 0256622082 65305 M17.12 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 0301354572 8888285 M25.561 M25.562 G89.28 Z96.653 Health Concerns Section Related Observation LastModified by Organization Detai ls LastModified Time None Recorded Concern Status LastModified by Organization Details LastModified Time None Recorded Advance Directives Directive None Recorded Payers Insurance Date Sequence Insurance Name Policy Number Policy White Covered Member ID White Member ID Guarantor Name 06/16/2024 1 [place] B[place] [employer] Camille Andrade [id number] Camille Andrade 06/16/2024 2 [place] [facility] Camille Andrade [id number] Camille Andrade Notes Date Note Type Note [...] strength. Some discomfort with range of motion. Assessment Osteoarthritis of knee -bilateral knees Plan After meticulous sterile preparation, the knees bilaterally were injected with 1 vial of Huyen gel 1. Post-injection precautions were reviewed. I recommend ice, restriction of activities and re-evaluation next week for follow up injection. Singh Iyer PA-C [address], [place], [address], [facility] 10/28/2023 16:50:18 06/16/2024 text/html [...] strength. Some discomfort with range of motion. Assessment Osteoarthritis of knee -bilateral knees Plan After meticulous sterile preparation, the knees bilaterally were injected with 1 vial of Huyen gel 1. Post-injection precautions were reviewed. I recommend ice, restriction of activities and re-evaluation next week for follow up injection. Singh Iyer PA-C [address] [facility] [address], [place], [address], [place] [facility] [place] [facility] 07/06/2024 14:11:24 OBGyn Episode No OBEpisode recorded.
--- OUTSIDE RECORDS SUMMARY | 2024-12-06 08:36 | XMS_ITS | Encounter Summary ---
Author Organization [facility] Address [address] [place] [address] Care Team Providers Care Videotape Recording Engineer Name Role Phone Salud Lester MD Primary Care Provider Arnulfo Mccollum MD Unavailable [phone] Laura Palma NP Unavailable [phone] Encounter Details Date Type Department Care Team Description 09/10/2020 [facility] Feeder Report Medical Records [address] [place] [address] AkshatAnton fitzpatrickcecy Social History Tobacco Use Types [...] on filedocumented in this encounter Care Teams Videotape Recording Engineer Relationship Specialty Start Date End Date Salud Lester MD PCP - General Internal Medicine 03/29/18 Arnulfo Wilks MD [address] [place] [address] Specialist Cardiovascular Disease 08/22/20 Laura Palma NP [address] [place] [address] Cardiology 08/22/20 documented as of this encounter
--- NOTE | 2024-12-06 08:38 | MHC.OFFVIS ---
Vital Signs 12/06/24 08:51 Height 5 ft 6 in Weight 234 lb 9.149 oz BMI 37.9 BP 124/62 Blood Pressure Location Lt brachial Position Sitting Pulse 76 Pulse Source Pulse Oximeter Pulse Oximetry (%) 96 Oxygen Delivery Method Room Air Intake Visit Reasons: RA Intake Note: Patient presents for RA follow up. Multiple Slide Operator Required: Yes Multiple Slide Operator Language: Bangladeshi Multiple Slide Operator Services: Multiple Slide Operator Offered & Declined Multiple Slide Operator Name: Mercy Ferguson Information Interpreted: non-clinical & clinical Stave Jointer: Stave Jointer Present (Mercy Ferguson) Accompanied by: Daughter Allergies atorvastatin (From Lipitor) Allergy (Unknown, Verified 12/06/24 08:43) Leg cramps ciprofloxacin (From Cipro) Allergy (Unknown, Verified 12/06/24 08:43) Stomach Upset ezetimibe (From Zetia) Allergy (Unknown, Verified 12/06/24 08:43) leg cramps hydrochlorothiazide (From Avalide) Allergy (Unknown, Verified 12/06/24 08:43) Stomach Upset infliximab (From Remicade) Allergy (Unknown, Verified 12/06/24 08:43) Infection irbesartan (From Avalide) Allergy (Unknown, Verified 12/06/24 08:43) Stomach Upset metformin Allergy (Unknown, Verified 12/06/24 08:43) nausea moxifloxacin (From Avelox) Allergy (Unknown, Verified 12/06/24 08:43) Stomach Upset nifedipine Allergy (Unknown, Verified 12/06/24 08:43) upset stomach pravastatin Allergy (Unknown, Verified 12/06/24 08:43) stomach upset rosuvastatin (From Crestor) Allergy (Unknown, Verified 12/06/24 08:43) Leg cramps terazosin (From Hytrin) Allergy (Unknown, Verified 12/06/24 08:43) Stomach Upset valsartan (From Diovan) Allergy (Unknown, Verified 12/06/24 08:43) Stomach Upset warfarin (WARFARIN) Allergy (Unknown, Verified 12/06/24 08:43) Anaphylaxis Medication List - Last Reconciled 12/06/24 by Dacia Lynn MD acetaminophen ER (Tylenol 8 Hour) 1,300 mg PO Q8H albuterol sulfate 0.63 mg (3 mL) inhalation Q4-6H PRN apixaban (Eliquis) 5 mg PO BID blood sugar diagnostic As directed blood sugar diagnostic (FreeStyle Test strips) check glucose once a day blood-glucose meter As directed compr.stocking,knee,long,x-lrg 10-20 mmHg diltiazem HCl ER 240 mg PO DAILY Farxiga (dapagliflozin propanediol) 5 mg PO DAILY NS hyulwnlbapp-wheznshrg-giyobgjd 200-62.5-25 mcg (Trelegy Ellipta) 1 inh inhalation DAILY folic acid 1 mg PO DAILY furosemide 40 mg PO BID gabapentin 300 mg PO TID 90 days glipizide 5 mg PO DAILY hospital bed As directed incontinence pad, liner, disp As directed levothyroxine 50 mcg PO QAM lisinopril 5 mg PO BID meclizine 25 mg PO DAILY PRN pantoprazole 40 mg PO DAILY@0600 potassium chloride ER 20 mEq (2 x 10 mEq) PO DAILY Shower Chair As directed tramadol 100 mg PO TID 30 days HPI Comments Details: Patient is an 83-year-old female with COPD, diabetes complicated by CKD stage 3, hypertension complicated by heart failure with preserved ejection fraction, hyperlipidemia, hypothyroidism, atrial fibrillation on anticoagulation, polyarticular osteoarthritis and seropositive rheumatoid arthritis here today for follow up. Interval History: Patient last seen 08/24/24 with me - Did a trial of cessation of minocycline and noted worsening of sx and so it was restarted with improvement - Still has intermittent pain to the hands and feet. Sometimes associated with swelling and stiffness - No synovitis. Pain attributed to OA - Tramadol increased and gabapentin increased Today, - The increased tramadol helps - Not sure if the gabapentin increase helped - Joints hurt with changes in the weather - Has pain sometimes to her PIPs especially over the herbeden's nodes Rheumatologic History: +RF++CCP dx around 1999 gold salts. Not tolerated Methotrexate not tolerated Arava ineffective Hydroxychloroquine not tolerated Remicade for 3 months, left foot osteomyelitis SSZ around 2018 partially effective. stopped 10/2023 could not tolerate s/e Initial history with Dr. Mccollum: This is an 82-year-old female who presents for evaluation of rheumatoid arthritis. Patient presents with her daughter. She has a poor historian. She stated that she was diagnosed with RA in her 60s. She states that she has been on different medicines and usually they would be discontinued due to a side effect. Currently she has been on sulfasalazine 1000 mg Twice daily since around 2019. Prescribed by Dr. Salazar and continued by her PCP. Arava was ineffective. She could not tolerate methotrexate and hydroxychloroquine. She developed right foot osteomyelitis once after Remicade was started. She states that she has diffuse pain. She has pain in her hands, her neck, shoulders, back, knees. She stated that she had reconstructive surgery for her right foot years ago. She gets periodic gel injections for both knees every 6 months. She states that she has an old oxycodone prescription from her grain operator. The prescription dates back to 2006. She takes it as needed and it is helpful She has a history of blood clot and is on Eliquis regularly. Most recent DVT was around 9 years ago. Patient also has history of COPD. She uses 2 L of oxygen as needed. She never smoked. She also has history of obstructive sleep apnea and uses a CPAP. She is unaware of any family history of an autoimmune rheumatic disease. Current Rheumatology Medication(s): Minocycline 100 mg b.i.d. (takes daily) Gabapentin 300mg TID Tramadol 100mg TID [facility] Medical History Ankle pain, right Hypokalemia LILY (obstructive sleep apnea) (HFpEF) heart failure with preserved ejection fraction Depression Physical deconditioning Cervical radiculopathy due to degenerative joint disease of spine Venous insufficiency Recurrent pulmonary embolism Diabetes Hyperlipidemia Hemorrhoids Obesity Rheumatoid arthritis COPD (chronic obstructive pulmonary disease) Atrial fibrillation Hypertension Surgical History History of carpal tunnel syndrome History of surgery Family History Father No problems noted. Mother No problems noted. Social History Household Members: Family Housing: House Do you presently have visiting nurse or other home services: No Alcohol intake: never Patient Tobacco Use Status: Never used Tobacco e-Cigarette/Vaping Use: Never Used service: No Current occupational status: retired Cognitive needs: No Hearing needs: No Vision needs: Yes Review of Systems Const Details: Review of Systems Constitutional: Denies fever, chills, weight loss ENT: Denies vision changes, eye pain or eye redness, dental caries, dry mouth GI: Denies nausea, vomiting, diarrhea, abdominal pain, change in BM Pulm: Denies SOB, RODRIGUEZ, hemoptysis, wheezing Cards: Denies chest pain, palpitations Skin: Denies Raynaud's, rash, nail changes, photosensitivity, TRANSPORTATION DESIGN ENGINEER: Denies headaches, weakness, paresthesias, recurrent falls MSK: as per HPI All other systems reviewed and are unremarkable except noted above Physical Exam Vital Signs: Last Vital Signs Pulse 76 12/06/24 08:51 BP 124/62 12/06/24 08:51 Pulse Ox 96 12/06/24 08:51 Oxygen Delivery Method Room Air 12/06/24 08:51 BMI result Body Mass Index 37.9 Vital signs reviewed Physical Examination CONSTITUITIONAL Patient alert and cooperative. Well appearing and in no apparent painful distress HEENT Conjunctiva and sclera clear. ?Pupils equal round and reactive to light. ?No lymphadenopathy. ? CHEST/RESPIRATORY SYSTEM Normal respiratory effort and able to speak in complete sentences. ?Clear to auscultation bilaterally. ?No crackles, rales, rhonchi, wheezes heard. CARDIAC SYSTEM Regular rate and rhythm. ?S1 and S2 heard no murmurs. ?Radial pulses intact bilaterally MSK Hands: ?Able to make a fist. Very prominent Lorraine's and Heberden nodes throughout bilateral hands. Mild tenderness to palpation of sole of the Lorraine's nodes but no synovitis. Synovial hypertrophy noted to the MCPs particularly the 2nd and 3rd MCPs bilaterally but no tenderness to palpation. Squaring of the 1st CMC. Wrists: ?Full range of motion at the wrists without pain. ?No tenderness to palpation or synovitis noted to the wrists. Elbows: Full range of motion without pain. No tenderness, weakness, swelling, increased warmth or erythema. Shoulders: Reduced active range of motion to the right shoulder with shoulder abduction up to 90 degrees however full passive range of motion past the 90 degrees to a full 180. This was associated with some discomfort but no point tenderness to palpation anywhere. Full active range of motion to the left shoulder. No tenderness, weakness, swelling, increased warmth or erythema. Knees: ?Full range of motion. ?No tenderness, swelling, increased warmth or erythema.? Bilateral crepitations felt Ankles: Full range of motion. ?No tenderness, swelling, increased warmth or erythema.? Hyperpigmentation consistent with lipodermatosclerosis bilaterally Feet: ?Left foot with hammertoe deformities and bunions at the 1st and 5th MTP. Right foot with bunions to the 1st and 5th MTP but no deformities. Tender points:?No tenderness to palpation of the bilateral trapezius, supraspinatus, greater trochanters, anterior costochondral junctions, bilateral gluteal areas, bilateral suboccipital muscle insertions SKIN Skin intact without rashes. Results Reviewed Results Reviewed: Laboratory Tests 06/23/24 11/28/24 10:40 07:26 WBC 5.1 RBC 4.75 Hgb 14.5 Hct 45.1 Plt Count 199 ESR 21 H 14 Sodium 141 Potassium 3.9 Chloride 100 Carbon Dioxide 29 BUN 18 H Creatinine 0.89 AST 24 ALT 10 C-Reactive Protein 0.37 Assessment & Plan Assessment & Plan (1) Rheumatoid arthritis: Comment: -ve RF-ve CCP deforming dx around 1999 gold salts. Not tolerated Methotrexate not tolerated Arava ineffective Hydroxychloroquine not tolerated Remicade for approx 3 months, left foot osteomyelitis SSZ around 2018 DC 10/2023 ineffective Minocycline 10/2023 At least partially effective Code(s): M06.9 - Rheumatoid arthritis, unspecified Category: Medical Qualifiers: Rheumatoid arthritis location: multiple sites Rheumatoid factor presence: with rheumatoid factor Qualified Code(s): M05.79 - Rheumatoid arthritis with rheumatoid factor of multiple sites without organ or systems involvement Plan: #Seronegative erosive RA Patient is an 83-year-old female with a longstanding history of a seronegative erosive rheumatoid arthritis, this is now complicated by significant osteoarthritis in the hands as evidenced by Lorraine's and Heberden nodes throughout. It is very difficult to differentiate between RA and OA type pain. On exam today I do not see any active synovitis and so this leads me to believe that the pain that she is experiencing is more so from the OA than the RA. Her inflammatory markers have also normalized. Given that she gets some benefit from minocycline, we will continue it Plan - Minocycline 100mg bid - RTC 4 months - Labs before visit: CBC, CMP, ESR, CRP (2) Generalized osteoarthritis: Code(s): M15.9 - Polyosteoarthritis, unspecified Category: Medical Plan: #Polyarticular OA Patient with polyarticular osteoarthritis. Currently gets gel injections from Orthopedics every 6 months. I do believe that her hand osteoarthritis is a significant cause of her pain and so I want to maximize therapy for her hand osteoarthritis today. Plan - Topical diclofenac 1% 4 times a day to bilateral hands - Gabapentin to 300mg tid - Tramadol 100mg tid (3) skilled nursing use of minocycline: Code(s): Z79.2 - skilled nursing (current) use of antibiotics Plan: #skilled nursing use of minocycline Risks and benefits of minocycline in the management of patient's rheumatoid arthritis discussed with the patient Risks include GI upset including diarrhea and nausea Benefits include improved disease control Plan I spent 37 minutes reviewing the record and labs, taking a history, examining the patient, discussing the treatment plan, ordering diagnostic work up and documenting in the medical record Orders: Orders Complete Blood Count Auto Diff 4 Months M05.79 - Rheumatoid arthritis with rheumatoid factor of multiple sites without organ or systems involvement Erythrocyte Sedimentation Rate 4 Months M05.79 - Rheumatoid arthritis with rheumatoid factor of multiple sites without organ or systems involvement Comprehensive Met. Panel 4 Months M05.79 - Rheumatoid arthritis with rheumatoid factor of multiple sites without organ or systems involvement C Reactive Protein 4 Months M05.79 - Rheumatoid arthritis with rheumatoid factor of multiple sites without organ or systems involvement Medications: New minocycline 50 mg PO DAILY 90 caps 1RF M05.79 - Rheumatoid arthritis with rheumatoid factor of multiple sites without organ or systems involvement [Walker, Rollator with seat] As directed 1 ea 0RF M05.79 - Rheumatoid arthritis with rheumatoid factor of multiple sites without organ or systems involvement, M15.9 - Polyosteoarthritis, unspecified Refilled tramadol 100 mg PO TID 90 tabs 5RF 30 days M15.9 - Polyosteoarthritis, unspecified gabapentin 300 mg PO TID 270 caps 1RF 90 days M15.9 - Polyosteoarthritis, unspecified Coding Level of Care Code Est Pt Level 4 (72274) Complex EM visit Add On G2211 Diagnoses Rheumatoid arthritis involving multiple sites with positive rheumatoid factor M05.79 Rheumatoid arthritis location: multiple sites Rheumatoid factor presence: with rheumatoid factor Generalized osteoarthritis 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
[2024-12-06 08:51] VITALS: BP 124/62; PULSE 76; O2SAT 96; BMI 37.9
== END 2024-12-06 09:23 | disposition home or self-care (01) ==
PROVIDERS: PCP Internal Medicine; Visit Provider Student in an Organized Health Care Education/Training Program
DX: M05.79 Rheumatoid arthritis with rheumatoid factor of multiple sites without organ or systems involvement (principal); M15.9 Polyosteoarthritis, unspecified; Z79.2 Long term (current) use of antibiotics
CPT/HCPCS: 99214; G2211

== ENCOUNTER → 2024-12-06 08:25 | Outpatient (BNVA) | payer MEDICARE, MEDICAID, SELFPAY | PROVIDERS: PCP Internal Medicine; Visit Provider Student in an Organized Health Care Education/Training Program | DX: M05.79 Rheumatoid arthritis with rheumatoid factor of multiple sites without organ or systems involvement (principal); M15.9 Polyosteoarthritis, unspecified; Z79.2 Long term (current) use of antibiotics | CPT/HCPCS: 99212 ==

== ENCOUNTER 2024-12-27 12:07 | Outpatient (AMB) | payer MEDICARE, MEDICAID, SELFPAY ==
--- NOTE | 2024-12-27 12:31 | MHC.PC.OV ---
Vital Signs 12/27/24 12:32 Height 5 ft 6 in Weight 234 lb BMI 37.8 BP 124/66 Blood Pressure Location Lt brachial Position Sitting Pulse 76 Pulse Source Pulse Oximeter Temp 98.6 F Temp Source Oral Pulse Oximetry (%) 95 Oxygen Delivery Method Room Air Intake Visit Reasons: 4 months f/up Intake Note: Pt is here today for 4 months follow up visit. Allergies atorvastatin (From Lipitor) Allergy (Unknown, Verified 12/27/24 12:50) Leg cramps ciprofloxacin (From Cipro) Allergy (Unknown, Verified 12/27/24 12:50) Stomach Upset ezetimibe (From Zetia) Allergy (Unknown, Verified 12/27/24 12:50) leg cramps hydrochlorothiazide (From Avalide) Allergy (Unknown, Verified 12/27/24 12:50) Stomach Upset infliximab (From Remicade) Allergy (Unknown, Verified 12/27/24 12:50) Infection irbesartan (From Avalide) Allergy (Unknown, Verified 12/27/24 12:50) Stomach Upset metformin Allergy (Unknown, Verified 12/27/24 12:50) nausea moxifloxacin (From Avelox) Allergy (Unknown, Verified 12/27/24 12:50) Stomach Upset nifedipine Allergy (Unknown, Verified 12/27/24 12:50) upset stomach pravastatin Allergy (Unknown, Verified 12/27/24 12:50) stomach upset rosuvastatin (From Crestor) Allergy (Unknown, Verified 12/27/24 12:50) Leg cramps terazosin (From Hytrin) Allergy (Unknown, Verified 12/27/24 12:50) Stomach Upset valsartan (From Diovan) Allergy (Unknown, Verified 12/27/24 12:50) Stomach Upset warfarin (WARFARIN) Allergy (Unknown, Verified 12/27/24 12:50) Anaphylaxis Medication List - Last Reconciled 12/27/24 by Salud Lester MD acetaminophen ER (Tylenol 8 Hour) 1,300 mg PO Q8H albuterol sulfate 0.63 mg (3 mL) inhalation Q4-6H PRN apixaban (Eliquis) 5 mg PO BID blood sugar diagnostic As directed blood sugar diagnostic (FreeStyle Test strips) check glucose once a day blood-glucose meter As directed compr.stocking,knee,long,x-lrg 10-20 mmHg diltiazem HCl ER 240 mg PO DAILY Farxiga (dapagliflozin propanediol) 5 mg PO DAILY NS jftuidhfqyk-veckujshs-ufmsgohg 200-62.5-25 mcg (Trelegy Ellipta) 1 inh inhalation DAILY folic acid 1 mg PO DAILY furosemide 40 mg PO BID gabapentin 300 mg PO TID 90 days glipizide 5 mg PO DAILY hospital bed As directed incontinence pad, liner, disp As directed levothyroxine 50 mcg PO QAM lisinopril 5 mg PO BID meclizine 25 mg PO DAILY PRN minocycline 100 mg PO BID 90 days pantoprazole 40 mg PO DAILY@0600 potassium chloride ER 20 mEq (2 x 10 mEq) PO DAILY Shower Chair As directed tramadol 100 mg (2 x 50 mg) PO TID 30 days [Walker, Rollator with seat As directed] Tobacco use date assessed: 12/27/24 Fall risk assessment: No Falls in past year Last assessed Fall Risk: 12/27/24 Dental Screening Dental Screen Date: 12/27/24 Did you have a dental visit in the last 12 months?: No Did you have a dental problem in the last 6 months where you did not have access to dental care?: No Was dental information given to patient?: Patient has dentist HPI 4 months f/up HPI Details Patient presents for the follow-up hypertension, paroxysmal AFib, heart failure with preserved ejection fraction COPD chronic lower extremity edema type 2 diabetes hypothyroidism. Patient complains of chronic neck pain and stiffness worse when turning her head to the side for many weeks. She denies weakness or numbness in upper extremities. Patient complains of chronic head tremor and intermittent left hand resting tremor. She has been ambulating with a walker due to advanced rheumatoid arthritis. FORMERLY [facility], [facility] Medical History (Updated 12/27/24 @ 13:57 by Salud Lester MD) Hypothyroid Ankle pain, right Hypokalemia LILY (obstructive sleep apnea) (HFpEF) heart failure with preserved ejection fraction Depression Physical deconditioning Cervical radiculopathy due to degenerative joint disease of spine Venous insufficiency Recurrent pulmonary embolism Diabetes Hyperlipidemia Hemorrhoids Obesity Rheumatoid arthritis COPD (chronic obstructive pulmonary disease) Atrial fibrillation Hypertension Surgical History History of carpal tunnel syndrome History of surgery Family History Father No problems noted. Mother No problems noted. Social History Household Members: Family Housing: House Do you presently have visiting nurse or other home services: No Alcohol intake: never Patient Tobacco Use Status: Never used Tobacco e-Cigarette/Vaping Use: Never Used service: No Current occupational status: retired Cognitive needs: No Hearing needs: No Vision needs: Yes Questionnaire Thrive Questionnaire Date Thrive assessed: 07/10/24 I am a: Parent/Caregiver What is your living situation today?: I have a steady place to live Within the past 12 months, did the food you bought not last and you didn't have the money to get more?: Never true Within the past 12 months, did you worry whether your food would run out before you got money to buy more?: Never true Do you have trouble paying for medicines?: No Do you have trouble getting transportation to medical appointments?: No Do you have trouble paying your heating and electricity bill?: No Do you have trouble taking care of your child, family member or friend?: No Do you have trouble with day-to-day activities such as bathing, preparing meals, shopping, managing finances, etc.?: Yes Are you currently unemployed and looking for a job?: No Are you interested in more education?: No Please select the resources that you would like help with: None Currently or been in a relationship where the following occur: No concerns reported THRIVE Score: 0 AUDIT C Alcohol Use Questionnaire (AUDIT-C) 1. How often do you have a drink containing alcohol?: Never 3. How often do you have six or more drinks on one occasion?: Never Total Score: 0 OTILIO-7 AMB Questionnaire OTILIO-7 Date OTILIO - 7 assessed: 06/26/24 Source: Developed by Drs. Gume Adam, Sandhya Chopra, Major Headley and colleagues, with an educational [email or web address] from [employer] Review of Systems Const All systems reviewed & are unremarkable except as noted in HPI and below Eyes Reports no additional complaints ENT Reports no additional complaints Card Reports no additional complaints Resp Reports no additional complaints GI Reports no additional complaints Physical exam (Primary Care) Vital Signs: Last Vital Signs Temp 98.6 F 12/27/24 12:32 Pulse 76 12/27/24 12:32 BP 124/66 12/27/24 12:32 Pulse Ox 95 12/27/24 12:32 Oxygen Delivery Method Room Air 12/27/24 12:32 BMI result Body Mass Index 37.8 Tobacco/Smoking Status: Tobacco use Status Tobacco use date assessed 12/27/24 12/27/24 12:52 Patient Tobacco Use Status Never used Tobacco 12/27/24 12:52 e-Cigarette/Vaping Use Never Used 12/27/24 12:33 Thrive Assessment: Date of Thrive Assessment Date Thrive assessed 07/10/24 12/27/24 12:33 Currently or been in a relationship where the following occur: No concerns reported Const General: no acute distress HENMT Head: Yes normal to inspection Mouth: Normal oral and palatal mucosa present Neck Other: Paraspinal tenderness in lower cervical region decreased range of motion in C-spine, Resp Effort & Inspection: normal respiratory effort Auscultation: diminished lung sounds Cardio Rhythm: regular rhythm Heart sounds: S1 normal heart sound present and S2 normal heart sound present GI Inspection: Yes normal to inspection Palpation (GI): Soft to palpation Percussion: Yes normal to percussion Auscultation: normal bowel sounds Neuro Cranial nerves: Yes CN's II-XII intact bilaterally Motor exam (neuro): 5/5 motor strength present throughout Romberg Test: Negative Extrem Other: Chronic venous stasis and 1+ pitting edema bilaterally Coding Level of Care Code Est Pt Level 4 (47206) Complex EM visit Add On G2211 Diagnoses Neck pain M54.2 Hypothyroid E03.9 Rheumatoid arthritis involving multiple sites with positive rheumatoid factor M05.79 Rheumatoid arthritis location: multiple sites Rheumatoid factor presence: with rheumatoid factor COPD (chronic obstructive pulmonary disease) J44.1 COPD type: COPD with acute exacerbation Hypertension I10 (HFpEF) heart failure with preserved ejection fraction I50.30 Diabetes E11.9 Tremor R25.1 Assessment & Plan Assessment & Plan (1) Neck pain: Code(s): M54.2 - Cervicalgia Category: Medical Plan: For chronic neck pain C-spine x-ray will be obtained patient will be referred to physical therapy (2) Hypothyroid: Code(s): E03.9 - Hypothyroidism, unspecified Category: Medical Plan: Continue levothyroxine (3) Rheumatoid arthritis: Comment: -ve RF-ve CCP deforming dx around 1999 gold salts. Not tolerated Methotrexate not tolerated Arava ineffective Hydroxychloroquine not tolerated Remicade for approx 3 months, left foot osteomyelitis SSZ around 2019 DC 10/2023 ineffective Minocycline 10/2023 At least partially effective Code(s): M06.9 - Rheumatoid arthritis, unspecified Category: Medical Qualifiers: Rheumatoid arthritis location: multiple sites Rheumatoid factor presence: with rheumatoid factor Qualified Code(s): M05.79 - Rheumatoid arthritis with rheumatoid factor of multiple sites without organ or systems involvement Plan: Follow-up with rheumatology (4) COPD (chronic obstructive pulmonary disease): Code(s): J44.9 - Chronic obstructive pulmonary disease, unspecified Category: Medical Qualifiers: COPD type: COPD with acute exacerbation Qualified Code(s): J44.1 - Chronic obstructive pulmonary disease with (acute) exacerbation Plan: Continue Trelegy (5) Hypertension: Comment: BP goal less than 130/80 Code(s): I10 - Essential (primary) hypertension Category: Medical Plan: Continue current medications (6) (HFpEF) heart failure with preserved ejection fraction: Comment: Echo 01/2021, severely increased left ventricle thickness, hyperdynamic LVEF, mild MS, myocardial perfusion nl 04/20, Echo 09/21 unchanged Code(s): I50.30 - Unspecified diastolic (congestive) heart failure Category: Medical Plan: Continue current medications follow-up with Cardiology (7) Diabetes: Comment: A1C goal less than 8 Code(s): E11.9 - Type 2 diabetes mellitus without complications Category: Medical Plan: A1c was 5.4, continue ADA diet regular physical activity and follow-up in 4 months with a fasting labs before (8) Tremor: Comment: Resting of head and left upper extremity Code(s): R25.1 - Tremor, unspecified Category: Medical Plan: Referred to neurology Orders: Orders XR cervical spine 3V Today M54.2 - Cervicalgia Comprehensive [place]. Panel Fast 4 Months E03.9 - Hypothyroidism, unspecified, E11.9 - Type 2 diabetes mellitus without complications, E55.9 - Vitamin D deficiency, unspecified, I10 - Essential (primary) hypertension, I48.91 - Unspecified atrial fibrillation, I50.30 - Unspecified diastolic (congestive) heart failure Hemoglobin A1c 4 Months E03.9 - Hypothyroidism, unspecified, E11.9 - Type 2 diabetes mellitus without complications, E55.9 - Vitamin D deficiency, unspecified, I10 - Essential (primary) hypertension, I48.91 - Unspecified atrial fibrillation, I50.30 - Unspecified diastolic (congestive) heart failure PT Evaluation and Treatment Today M54.2 - Cervicalgia Complete Blood Count Auto Diff 4 Months E03.9 - Hypothyroidism, unspecified, E11.9 - Type 2 diabetes mellitus without complications, E55.9 - Vitamin D deficiency, unspecified, I10 - Essential (primary) hypertension, I48.91 - Unspecified atrial fibrillation, I50.30 - Unspecified diastolic (congestive) heart failure TSH reflex Free T4 4 Months E03.9 - Hypothyroidism, unspecified, E11.9 - Type 2 diabetes mellitus without complications, E55.9 - Vitamin D deficiency, unspecified, I10 - Essential (primary) hypertension, I48.91 - Unspecified atrial fibrillation, I50.30 - Unspecified diastolic (congestive) heart failure Vitamin D 25-OH Total 4 Months E03.9 - Hypothyroidism, unspecified, E11.9 - Type 2 diabetes mellitus without complications, E55.9 - Vitamin D deficiency, unspecified, I10 - Essential (primary) hypertension, I48.91 - Unspecified atrial fibrillation, I50.30 - Unspecified diastolic (congestive) heart failure Referrals Neurology Referral R25.1 - Tremor, unspecified Medications: New incontinence pad, liner, disp As directed 120 ea 0RF R32 - Unspecified urinary incontinence sucralfate (Carafate) 1 g PO BID 60 tabs 3RF
[2024-12-27 12:32] VITALS: BP 124/66; PULSE 76; TEMP 37; O2SAT 95; BMI 37.8
--- OUTSIDE RECORDS SUMMARY | 2024-12-27 12:53 | XMS_ITS | Encounter Summary ---
Author Organization [facility] Address [address] [place] [address] Care Team Providers Care Health And Nutrition Specialist Name Role Phone Salud Lester MD Primary Care Provider Arnulfo Mccollum MD Unavailable [phone] Laura Palma NP Unavailable [phone] Encounter Details Date Type Department Care Team Description 09/10/2020 Clinician Oncology Report Medical Records [address] [place] [id number] AkshatAnton fitzpatrickcecy Social History Tobacco Use Types [...] on filedocumented in this encounter Care Teams Health And Nutrition Specialist Relationship Specialty Start Date End Date Salud Lester MD PCP - General Internal Medicine 03/29/18 Arnulfo Wilks MD [address] [place] [id number] Specialist Cardiovascular Disease 08/22/20 Laura Palma NP [address] [place] [id number] Cardiology 08/22/20 documented as of this encounter
--- OUTSIDE RECORDS SUMMARY | 2024-12-27 12:53 | XMS_ITS | Clinical Summary ---
Author Organization [facility] Address [address] [place] [address] Phone Care Team Providers Care Will Call Order Clerk Name Role Phone Salud Lester MD Primary Care Provider [phone] Allergies Active Allergy Reactions Criticality Noted Date [...] Active inhaler, assist devices (AEROCHAMBER PLUS FLOW-VU [facility]) 09/28/2018 Active sulfaSALAzine (AZULFIDINE) 500 mg tablet Take 500 mg by mouth 2 times daily. 11/18/2017 Active warfarin (COUMADIN) 5 mg tablet Take 5 mg by mouth See Admin Instructions. [facility] managing INR's. Active Active Problems Problem Noted Date Diagnosed Date Aortic aneurysm ([facility] V24) 09/03/2020 Overview (04/04/2024): Last Assessment & Plan: -Dilated at 4.4 cm from July 2019 -Discussed strict blood pressure control Carotid artery disease ([facility] V24) 09/03/2020 Overview (04/04/2024): Last Assessment & Plan: -50-69% LICA disease from September 2018 -followed by Dr. Lange of [facility] Vascular Surgery Chronic atrial fibrillation ([facility] V24, [facility] V28) 09/03/2020 Overview (04/04/2024): Last [...] controlled at this time on diltiazem, continue -[id number] = 6 (age, gender, HTN, CHF, DM), continue anticoagulation with warfarin. Risks and benefits of anticoagulation have thoroughly reviewed with the patient she verbalized understanding and agrees to continue. Bilateral bunions 09/26/2018 Diabetic polyneuropathy asso ciated with type 2 diabetes mellitus ([facility] V24, [facility] V28) 09/26/2018 Hammer toe of left foot 09/26/2018 Esophageal reflux 12/29/2017 Rheumatoid arthritis ([facility] V24, [facility] V28) 11/18/2017 Hypertension 07/07/2016 Overview (04/04/2024): Last Assessment & Plan: 110/64 Continue diltiazem, furosemide, and lisinopril at current doses. Anxiety 04/09/2016 Paroxysmal atrial fibrillation ([facility] V24, [facility] V28) 04/09/2016 DVT (deep venous thrombosis) ([facility] V24, [facility] V28) 04/02/2016 Diabetes mellitus type 2, un complicated ([facility] V24, [facility] V28) 03/24/2016 Chronic obstructive pulmonar y disease ([facility] V24, [facility] V28) 03/05/2016 Hyperlipidemia 03/05/2016 Pulmonary embolism ([facility] V24, [facility] V28) Congestive heart failure ([facility] V24, [facility] V 28) 02/13/2016 Overview (04/04/2024): [...] 8:45 AM EDT Office Visit Orthopedic Surgery [place] [address] [address] Vinny Yates, JUDD Neal's christianoe, right (Primary Dx); Acquired hallux valgus of right foot; Acquired hallux valgus of left foot; Dermatophytosis of nail; Hammer toe of left foot; Diabetic mononeuropathy simplex ([facility] V24, CMS/[facility] V28); Metatarsalgia of both feet; Pain in toe of left foot; Type II diabetes mellitus with peripheral circulatory disorder ([facility] V24, CMS/HCC V28); Corns and callosities; Pain in toe of right foot 10/05/2024 8:45 AM EDT Office Visit Orthopedic Surgery [facility] [address] [id number] Vinny Yates DPM Tailor's christianoe, right (Primary Dx); Acquired hallux valgus of right foot; Acquired hallux valgus of left foot; Dermatophytosis of nail; Hammer toe of left foot; Type II diabetes mellitus with peripheral circulatory disorder (CMS/HCC V24, CMS/HCC V28); Corns and callosities; Metatarsalgia of both feet; Pain in toe of left foot; Diabetic mononeuropathy simplex ([facility] V24, CMS/HCC V28); Pain in toe of right foot [...] AM EDT Office Visit Orthopedic Surgery - [place] [address] [phone] Vinny Yates, DPM [address] [address] Health Maintenance Due Date Last Done Comments [...] 07/29/2020, 07/08/2020 Cholesterol Screening (Lipid Panel) 05/03/2022 Falls Risk Assessment 05/03/2022 Medicare Annual Wellness Visit 05/03/2022 Osteoporosis Screening (Bone Density Screening) 05/03/2022 Social Influencers of Health Screening 05/03/2022 Diabetes: Annual Urine Albumin-Creatinine Ratio (uACR) 05/15/2022 Diabetes: Blood Sugar Control Test (HGBA1C) 05/15/2022 Hypertension/CHF/CAD Annual BMP Blood Test 05/15/2022 10/04/2018 Depression Screening 05/31/2024 Influenza Vaccine (#1) 2025 , 03/02/2023, 03/25/2022, [...] Insurance MEDICARE [place] - [place] Care Teams Will Call Order Clerk Relationship Specialty Start Date End Date Salud Lester MD [address] [phone] PCP - General Internal Medicine 03/29/18
--- OUTSIDE RECORDS SUMMARY | 2024-12-27 12:53 | XMS_ITS | Clinical Summary ---
Author Organization [facility] Address [address] [place], [place] [id number] Phone Care Team Providers Care Residential Sales Representative Name Role Phone Salud Lester MD Primary Care Provider [phone] Allergies Active Allergy Reactions Criticality Noted Date Comments Atorvastatin 04/12/2009 Ciprofloxacin 12/19/2015 Ezetimibe 04/12/2009 Infliximab 05/05/2023 Other Reaction(s): osteomyelitis Irbesartan 05/05/2023 Irbesartan-Hydrochloro thiazide 10/25/2009 Metformin 05/05/2023 Moxifloxacin 06/02/2012 Nifedipine 10/25/2009 Pravastatin 05/05/2023 Rosuvastatin 04/12/2009 Terazosin 07/29/2009 Triamterene-Hydrochlor othiazid Unknown 05/05/2023 Valsartan 07/29/2009 Warfarin Shortness Of Breath High 04/17/2013 Other Reaction(s): Only allergic to the warfarin brand, not coumadin brand Medications umeclidinium (INCRUSE ELLIPTA) 62.5 mcg/actuation inhalation Inhale 62.5 mcg into the lungs daily. 02/09/2023 Active warfarin (COUMADIN) 5 MG tablet Take 5 mg by mouth daily. Active pantoprazole (PROTONIX) 40 MG tablet Take 40 mg by mouth daily. Active lisinopril (PRINIVIL,ZESTR IL) 5 MG tablet Take 5 mg by mouth daily. 02/23/2022 Active levothyroxine (SYNTHROID, LEVOTHROID) 50 MCG tablet Take 50 mcg by mouth every morning. 02/23/2022 Active glipiZIDE (GLUCOTROL) 5 MG tablet Take 5 mg by mouth daily. Active gabapentin (NEURONTIN) 300 MG capsule Take 300 mg by mouth daily as needed. Active furosemide (LASIX) 40 MG tablet Take 1.5 mg by mouth 2 (two) times a day. Active folic acid (FOLVITE) 1 MG tablet Take 1 mg by mouth daily. Active ezetimibe (ZETIA) 10 mg tablet Take 10 mg by mouth daily. 02/23/2022 Active dilTIAZem (DILACOR XR) 240 mg 24 hr capsule Take 1 capsule by mouth daily. 11/14/2021 Active budesonide-form oterol (SYMBICORT) 160-4.5 mcg/actuation inhaler Inhale 2 puffs into the lungs 2 (two) times a day. 02/09/2023 Active potassium chloride (KLOR-CON 10) 10 MEQ ER tablet Take 10 mEq by mouth daily. 02/23/2022 Active Active Problems Problem Noted Date Diagnosed Date Arthritis 05/05/2023 Chronic obstructive pulmonary disease 05/05/2023 Diabetes mellitus 05/05/2023 DVT (deep venous thrombosis) 05/05/2023 Gastroesophageal reflux disease 05/05/2023 Hyperlipidemia 05/05/2023 Hypertensive disorder 05/05/2023 Pulmonary embolism and infarction 05/05/2023 Atrial fibrillation 05/05/2023 Social History Tobacco Use Types Packs/Day Years Used Date Smoking Tobacco: Never Assessed Education Answer Date Recorded Are you interested in more education? Not on rj e 03/05/2023 Are you concerned about learning? Not on file 03/05/2023 No 03/05/2023 No 03/05/2023 Digital Access Answer Date Recorded No 03/05/2023 No 03/05/2023 Reliable internet access at home? Not on file 03/05/2023 Device with a working camera? Not on file Comments Unknown Sex and Gender Information Value Date Recorded Sex Assigned at Not on file Legal Sex Female 8:44 PM EDT Gender Identity Not on file Sexual Orientation Not on file Plan of Treatment Health Maintenance Due Date Last Done Comments BLOOD PRESSURE 1938 CREATININE LEVEL 1938 HEMOGLOBIN A1C 1938 POTASSIUM LEVEL 1938 TSH LEVEL 1938 DEPRESSION SCREENING 1950 LIPID PANEL 1956 ZOSTER VACCINES (1 of 2) 1988 OSTEOPOROSIS SCREENING INITI AL (ONE-TIME) 12/29/2003 RSV VACCINE (1 - 1-dose 75+ series) 2013 DIABETIC EYE EXAM 05/05/2023 COVID-19 VACCINE (3 - 2023-2 5 season) 2024 07/29/2020, 07/08/2020 Adult Td,Tdap Booster 02/08/2033 02/08/2023 , 10/23/2011 PNEUMOCOCCAL VACCINES (50+ years) Completed 03/05/2016, 03/05/2010 HEPATITIS A VACCINES Aged Out No long er eligible based on patient's age to complete this topic HIB VACCINES Aged Out No longer eligi ble based on patient's age to complete this topic MENINGOCOCCAL VACCINES (ACWY) Aged Out No longer eligible based on patient's age to complete this topic MENINGOCOCCAL VACCINES (B) Aged Out N o longer eligible based on patient's age to complete this topic Medical Devices Not on file Insurance MEDICARE PART A & B [facility] MEDICARE PART A & B HEALTH MEDICARE PART A & B [place] MED[place]ARE PART A & B [employer] MEDIC[facility] PART A & [facility] Care Teams Residential Sales Representative Relationship Specialty Start Date End Date Salud Lester MD [address] [place] [id number] PCP - General Internal Medicine 02/10/23 Additional Source Comments The information contained in this document represents components of the legal health record. It is not the complete legal health record.[facility]
== END 2024-12-27 13:58 | disposition home or self-care (01) ==
LOC: HO.HMCC 12:08
PROVIDERS: PCP Internal Medicine; Visit Provider Internal Medicine
DX: M05.79 Rheumatoid arthritis with rheumatoid factor of multiple sites without organ or systems involvement (principal); J44.1 Chronic obstructive pulmonary disease with (acute) exacerbation; I50.30 Unspecified diastolic (congestive) heart failure; E11.9 Type 2 diabetes mellitus without complications; M54.2 Cervicalgia; E03.9 Hypothyroidism, unspecified; I10 Essential (primary) hypertension; R25.1 Tremor, unspecified

== ENCOUNTER → 2024-12-27 12:07 | Outpatient (BNVA) | payer MEDICARE, SELFPAY | PROVIDERS: PCP Internal Medicine; Visit Provider Internal Medicine | DX: M54.2 Cervicalgia (principal); E03.9 Hypothyroidism, unspecified; M05.79 Rheumatoid arthritis with rheumatoid factor of multiple sites without organ or systems involvement; J44.1 Chronic obstructive pulmonary disease with (acute) exacerbation; I11.0 Hypertensive heart disease with heart failure; I50.30 Unspecified diastolic (congestive) heart failure; R25.1 Tremor, unspecified; E11.9 Type 2 diabetes mellitus without complications | CPT/HCPCS: 99212 ==

== ENCOUNTER 2025-02-05 10:42 | Outpatient (AMB) | payer MEDICARE, MEDICAID, SELFPAY ==
--- NOTE | 2025-02-05 11:08 | MHC.PC.OV ---
Vital Signs 02/05/25 11:09 Height 5 ft 6 in Weight 238 lb BMI 38.4 BP 124/64 Blood Pressure Location Lt brachial Position Sitting Respiration 20 Pulse 83 Pulse Source Pulse Oximeter Temp 98.2 F Temp Source Oral Pulse Oximetry (%) 96 Oxygen Delivery Method Room Air Intake Visit Reasons: Follow up on anxiety Intake Note: Pt is here today for a follow up visit on anxiety. Pt states that she has been under a lot of stress because of her son, pt has been having chest pain at times. Allergies atorvastatin (From Lipitor) Allergy (Unknown, Verified 02/05/25 11:13) Leg cramps ciprofloxacin (From Cipro) Allergy (Unknown, Verified 02/05/25 11:13) Stomach Upset ezetimibe (From Zetia) Allergy (Unknown, Verified 02/05/25 11:13) leg cramps hydrochlorothiazide (From Avalide) Allergy (Unknown, Verified 02/05/25 11:13) Stomach Upset infliximab (From Remicade) Allergy (Unknown, Verified 02/05/25 11:13) Infection irbesartan (From Avalide) Allergy (Unknown, Verified 02/05/25 11:13) Stomach Upset metformin Allergy (Unknown, Verified 02/05/25 11:13) nausea moxifloxacin (From Avelox) Allergy (Unknown, Verified 02/05/25 11:13) Stomach Upset nifedipine Allergy (Unknown, Verified 02/05/25 11:13) upset stomach pravastatin Allergy (Unknown, Verified 02/05/25 11:13) stomach upset rosuvastatin (From Crestor) Allergy (Unknown, Verified 02/05/25 11:13) Leg cramps terazosin (From Hytrin) Allergy (Unknown, Verified 02/05/25 11:13) Stomach Upset valsartan (From Diovan) Allergy (Unknown, Verified 02/05/25 11:13) Stomach Upset warfarin (WARFARIN) Allergy (Unknown, Verified 02/05/25 11:13) Anaphylaxis Medication List - Last Reconciled 02/05/25 by Salud Lester MD acetaminophen ER (Tylenol 8 Hour) 1,300 mg PO Q8H albuterol sulfate 0.63 mg (3 mL) inhalation Q4-6H PRN apixaban (Eliquis) 5 mg PO BID blood sugar diagnostic As directed blood sugar diagnostic (FreeStyle Test strips) check glucose once a day blood-glucose meter As directed compr.stocking,knee,long,x-lrg 10-20 mmHg diltiazem HCl ER 240 mg PO DAILY Farxiga (dapagliflozin propanediol) 5 mg PO DAILY NS qpilapnnnso-adwseosnw-empawxvv 200-62.5-25 mcg (Trelegy Ellipta) 1 inh inhalation DAILY folic acid 1 mg PO DAILY furosemide 40 mg PO BID gabapentin 300 mg PO TID 90 days glipizide 5 mg PO DAILY hospital bed As directed incontinence pad, liner, disp As directed incontinence pad, liner, disp As directed levothyroxine 50 mcg PO QAM lisinopril 5 mg PO BID meclizine 25 mg PO DAILY PRN minocycline 100 mg PO BID 90 days pantoprazole 40 mg PO DAILY@0600 potassium chloride ER 20 mEq (2 x 10 mEq) PO DAILY sertraline (Zoloft) 25 mg PO DAILY Shower Chair As directed sucralfate (Carafate) 1 g PO BID tramadol 100 mg (2 x 50 mg) PO TID 30 days [Walker, Rollator with seat As directed] Tobacco use date assessed: 02/05/25 Fall risk assessment: No Falls in past year Last assessed Fall Risk: 02/05/25 Dental Screening Dental Screen Date: 12/27/24 HPI Follow up on anxiety HPI Details Pt complains of intermittent chest pain burning like sensation in substernal region lasting up to 15 minutes and palpitations on and off last week after she had an argument with her son. She denies nausea diaphoresis shortness or breath associated with the chest pain. Pt denies nocturnal CP, SOB, palpitations. 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 She had a negative stress test at [facility] about 5 years ago. Patient has chronic AFib, rate controlled on diltiazem and she is anticoagulated on Eliquis. Patient complains of worsening anxiety due to stress related to her son but denies depression or suicide ideation. [facility] Medical History (Updated 02/05/25 @ 12:12 by Salud Lester MD) Hypothyroid Ankle pain, right Hypokalemia LILY (obstructive sleep apnea) (HFpEF) heart failure with preserved ejection fraction Depression Physical deconditioning Cervical radiculopathy due to degenerative joint disease of spine Venous insufficiency Recurrent pulmonary embolism Diabetes Hyperlipidemia Hemorrhoids Obesity Rheumatoid arthritis COPD (chronic obstructive pulmonary disease) Atrial fibrillation Hypertension Surgical History History of carpal tunnel syndrome History of surgery Family History Father No problems noted. Mother No problems noted. Social History Household Members: Family Housing: House Do you presently have visiting nurse or other home services: No Alcohol intake: never Patient Tobacco Use Status: Never used Tobacco e-Cigarette/Vaping Use: Never Used service: No Current occupational status: retired Cognitive needs: No Hearing needs: No Vision needs: Yes Questionnaire Thrive Questionnaire Date Thrive assessed: 07/10/24 I am a: Parent/Caregiver What is your living situation today?: I have a steady place to live Within the past 12 months, did the food you bought not last and you didn't have the money to get more?: Never true Within the past 12 months, did you worry whether your food would run out before you got money to buy more?: Never true Do you have trouble paying for medicines?: No Do you have trouble getting transportation to medical appointments?: No Do you have trouble paying your heating and electricity bill?: No Do you have trouble taking care of your child, family member or friend?: No Do you have trouble with day-to-day activities such as bathing, preparing meals, shopping, managing finances, etc.?: Yes Are you currently unemployed and looking for a job?: No Are you interested in more education?: No Please select the resources that you would like help with: None Currently or been in a relationship where the following occur: No concerns reported THRIVE Score: 0 AUDIT C Alcohol Use Questionnaire (AUDIT-C) 1. How often do you have a drink containing alcohol?: Never 3. How often do you have six or more drinks on one occasion?: Never Total Score: 0 OTILIO-7 AMB Questionnaire OTILIO-7 Date OTILIO - 7 assessed: 02/05/25 Feeling nervous, anxious, or on edge: 1 = Several days Not being able to stop or control worryin = More than half the days Worrying too much about different things: 2 = More than half the days Trouble relaxin = Several days Being so restless that it is hard to sit still: 1 = Several days Becoming easily annoyed or irritable: 1 = Several days Feeling afraid as if something awful might happen: 2 = More than half the days Total OTILIO-7 score (0-4 normal; 5-9 mild; 10-14 moderate; 15-21 severe): 10 Source: Developed by Drs. Gume Adam, Sandhya Chopra, Major Headley and colleagues, with an educational [email or web address] from [employer]. OTILIO-7 Assessment Billing OTILIO-7 Assessment Tool: OTILIO-7 Assessment 56288 Review of Systems Const All systems reviewed & are unremarkable except as noted in HPI and below ENT Reports no additional complaints Card Reports no additional complaints Resp Reports no additional complaints GI Reports no additional complaints Reports no additional complaints Physical exam (Primary Care) Vital Signs: Last Vital Signs Temp 98.2 F 02/05/25 11:09 Pulse 83 02/05/25 11:09 Resp 20 02/05/25 11:09 BP 124/64 02/05/25 11:09 Pulse Ox 96 02/05/25 11:09 Oxygen Delivery Method Room Air 02/05/25 11:09 BMI result Body Mass Index 38.4 Tobacco/Smoking Status: Tobacco use Status Tobacco use date assessed 02/05/25 02/05/25 11:25 Patient Tobacco Use Status Never used Tobacco 02/05/25 11:25 e-Cigarette/Vaping Use Never Used 02/05/25 11:25 Thrive Assessment: Date of Thrive Assessment Date Thrive assessed 07/10/24 02/05/25 11:25 Currently or been in a relationship where the following occur: No concerns reported Const General: no acute distress HENMT Head: Yes normal to inspection Mouth: Normal oral and palatal mucosa present Neck Neck: Yes supple Resp Effort & Inspection: normal respiratory effort Auscultation: clear to auscultation bilaterally Cardio Rhythm: abnormal rhythm irregularly irregular Heart sounds: S1 normal heart sound present and S2 normal heart sound present GI Inspection: Yes normal to inspection Palpation (GI): Soft to palpation Percussion: Yes normal to percussion Auscultation: normal bowel sounds Coding Level of Care Code Est Pt Level 4 (82375) Diagnoses Atrial fibrillation I48.91 (HFpEF) heart failure with preserved ejection fraction I50.30 Angina at rest I20.89 Depression F32.9 Additional Codes OTILIO-7 Assessment Billing - OTILIO-7 Assessment Tool: OTILIO-7 Assessment 98818 ([id number]) Assessment & Plan Assessment & Plan (1) Atrial fibrillation: Comment: permanent Code(s): I48.91 - Unspecified atrial fibrillation Category: Medical Plan: Rate controlled on Cardizem anticoagulated on Eliquis (2) (HFpEF) heart failure with preserved ejection fraction: Comment: Echo 01/2021, severely increased left ventricle thickness, hyperdynamic LVEF, mild MS, myocardial perfusion nl 04/20, Echo 09/21 unchanged Code(s): I50.30 - Unspecified diastolic (congestive) heart failure Category: Medical Plan: Continue current medications (3) Angina at rest: Code(s): I20.89 - Other forms of angina pectoris Category: Medical Plan: EKG show AFib with a heart rate of [address]-T changes. Obtain nuclear stress test to evaluate for angina and ischemia (4) Depression: Code(s): F32.9 - Major depressive disorder, single episode, unspecified Category: Medical Plan: Start 25 mg of Zoloft. Stress management discussed with the patient counseling was recommended but patient declined. Orders: Orders CA stress test Today I20.89 - Other forms of angina pectoris, I48.91 - Unspecified atrial fibrillation, I50.30 - Unspecified diastolic (congestive) heart failure NM cardiolite stress test Today I20.89 - Other forms of angina pectoris, I48.91 - Unspecified atrial fibrillation Medications: New sertraline (Zoloft) 25 mg PO DAILY 30 tabs 2RF
[2025-02-05 11:09] VITALS: BP 124/64; PULSE 83; RESP 20; TEMP 36.8; O2SAT 96; BMI 38.4
--- OUTSIDE RECORDS SUMMARY | 2025-02-05 12:55 | XMS_ITS | Clinical Summary ---
Author Organization 175 [facility] Address [address] [place] [address] Phone Care Team Providers Care [place] Department Manager Name Role Phone Salud Lester MD Primary Care Provider [phone] Allergies Active Allergy Reactions Criticality Noted Date [...] Active inhaler, assist devices (AEROCHAMBER PLUS FL[place] [facility] 09/28/2018 Active sulfaSALAzine (AZULFIDINE) 500 mg tablet Take 500 mg by mouth 2 times daily. 11/18/2017 Active warfarin (COUMADIN) 5 mg tablet Take 5 mg by mouth See Admin Instructions. [facility] [facility] managing INR's. Active Active Problems Problem Noted Date Diagnosed Date Aortic aneurysm ([facility] V24) 09/03/2020 Overview (04/04/2024): Last Assessment & Plan: -Dilated at 4.4 cm from July 2019 -Discussed strict blood pressure control Carotid artery disease ([facility] V24) 09/03/2020 Overview (04/04/2024): Last Assessment & Plan: -50-69% LICA disease from September 2018 -followed by Dr. Lange of [facility] [place] Vascular Surgery Chronic atrial fibrillation ([facility] V24, [facility] V[facility]) 09/03/2020 Overview (04/04/2024): Last Assessment [...] controlled at this time on diltiazem, continue -[id number] = 6 (age, gender, HTN, CHF, DM), continue anticoagulation with warfarin. Risks and benefits of anticoagulation have thoroughly reviewed with the patient she verbalized understanding and agrees to continue. Bilateral bunions 09/26/2018 Diabetic polyneuropathy asso ciated with type 2 diabetes mellitus [place] [place], [facility] V28) 09/26/2018 Hammer toe of left foot 09/26/2018 Esophageal reflux 12/29/2017 Rheumatoid arthritis ([facility] V24, [facility] V28) 11/18/2017 Hypertension 07/07/2016 Overview (04/04/2024): Last Assessment & Plan: 110/64 Continue diltiazem, furosemide, and lisinopril at current doses. Anxiety 04/09/2016 Paroxysmal atrial fibrillation [place] [place], [facility] V28) 04/09/2016 DVT (deep venous thrombosis) ([facility] [place], [facility] V[facility]) 04/02/2016 Diabetes mellitus type 2, un complicated ([facility] [place], [facility] V28) 03/24/2016 Chronic obstructive pulmonar y disease ([facility] [place], [facility] [place]) 03/05/2016 Hyperlipidemia 03/05/2016 Pulmonary embolism ([facility] [place], [facility] V28) Congestive heart failure ([facility] [place], [facility] V 28) 02/13/2016 Overview (04/04/2024): [...] AM EDT Office Visit Orthopedic Surgery - [address] [address] Vinny Yates DPM Krista nixon, right (Primary Dx); Acquired hallux valgus of right foot; Acquired hallux valgus of left foot; Dermatophytosis of nail; Hammer toe of left foot; Diabetic mononeuropathy simplex ([facility] V24, [facility] V28); Metatarsalgia of both feet; Pain in toe of left foot; Type II diabetes mellitus with peripheral circulatory disorder ([facility] V24, [facility] V28); Corns and callosities; Pain in toe of right foot from [...] AM EDT Office Visit Orthopedic Surgery - [place] [address] [address] Vinny Yates, DPM [address] [address] Health Maintenance Due Date Last Done Comments Diabetes: Annual Foot Exam 1950 Diabetes: Annual Retina Eye Exam 1950 Zoster Vaccines (1 of 2) 1988 RSV Immunization Adult Patients (1 - 1-dose 75+ series) 2013 Pneumococcal Vaccine: 50+ Years (2 of 2 - PPSV23) 04/30/2016 03/05/2016, 03/05/2016, 03/05/2010 COVID-19 Vaccine (3 - Pfizer risk series) 08/26/2020 07/29/2020, 07/08/2020 Cholesterol Screening (Lipid Panel) 05/03/2022 Falls Risk Assessment 05/03/2022 Medicare Annual Wellness Visit 05/03/2022 Osteoporosis Screening (Bone Density Screening) 05/03/2022 Social Influencers of Health Screening 05/03/2022 Diabetes: Blood Sugar Control Test (HGBA1C) 05/15/2022 Hypertension/CHF/CAD Annual BMP Blood Test 05/15/2022 10/04/2018 Depression Screening 05/31/2024 Influenza Vaccine (#1) 2025 4, 03/02/2023, 03/25/2022, Additional history exists DTaP,Tdap,and Td [...] Insurance MEDICARE MEDICAID - [place] Care Teams [place] Department Manager Relationship Specialty Start Date End Date Salud Lester MD [address] [place] [address] PCP - General Internal Medicine 03/29/18
--- OUTSIDE RECORDS SUMMARY | 2025-02-05 12:55 | XMS_ITS | Clinical Summary ---
Author Organization [facility] Address [address] [place], [place] [id number] Phone Care Team Providers Care Credit Underwriter Name Role Phone Salud Lester MD Primary Care Provider [phone] Allergies Active Allergy Reactions Criticality Noted Date [...] Health Maintenance Due Date Last Done Comments CREATININE LEVEL 1938 HEMOGLOBIN A1C 1938 POTASSIUM LEVEL 1938 TSH LEVEL 1938 DEPRESSION SCREENING 1950 LIPID PANEL 1956 ZOSTER VACCINES (1 of 2) 1988 OSTEOPOROSIS SCREENING INITIAL (ONE-TIME) 12/29/2003 RSV VACCINE (1 - 1-dose 75+ series) 2013 DIABETIC EYE EXAM 05/05/2023 INFLUENZA VACCINE (#1) 2024 , 03/25/2022, 03/19/2021, Additional history exists COVID-19 VACCINE ( season) 2025 07/29/2020, 07/08/2020 Adult Td,Tdap Booster 02/08/2033 02/08/2023, 012 PNEUMOCOCCAL VACCINES (50+ years) Completed 03/05/2016, 03/05/2010 [...] file Insurance MEDICARE PART A & B Member Subscriber Plan / Payer (Ef fective 1994-Present) Name:Camille Andrade Member ID:[id number] Relation to Subscriber:Self Name:Camille Andrade Subscriber ID:[id number] Payer ID:[id number] Group ID:Not on file Type:Medicare Address: [facility] [address] [facility] [place] [address] [facility] MEDICARE PART A & B HEALTH MEDICARE PART A & B [place] MEDICARE PART A & B [facility]ICARE [facility] A & [facility] Care Teams Credit Underwriter Relationship Specialty Start Date End Date Salud Lester MD [address] [place] [id number] PCP - General Internal Medicine 02/10/23 Additional Source Comments The information contained in this document represents components of the legal health record. It is not the complete legal health record.[facility]
== END 2025-02-05 12:29 | disposition home or self-care (01) ==
LOC: HO.HMCC 10:42
PROVIDERS: PCP Internal Medicine; Visit Provider Internal Medicine
DX: I48.91 Unspecified atrial fibrillation (principal); I50.30 Unspecified diastolic (congestive) heart failure; I20.89 Other forms of angina pectoris; F32.9 Major depressive disorder, single episode, unspecified

== ENCOUNTER → 2025-02-05 10:42 | Outpatient (BNVA) | payer MEDICARE, MEDICAID, SELFPAY | PROVIDERS: PCP Internal Medicine; Visit Provider Internal Medicine | DX: I48.20 Chronic atrial fibrillation, unspecified (principal); F41.9 Anxiety disorder, unspecified; I50.30 Unspecified diastolic (congestive) heart failure; I20.89 Other forms of angina pectoris; F32.9 Major depressive disorder, single episode, unspecified; Z79.01 Long term (current) use of anticoagulants | CPT/HCPCS: 96127; 99212 ==

== ENCOUNTER 2025-03-01 07:49 | Outpatient (AMB) | payer MEDICARE, MEDICAID, SELFPAY ==
--- OUTSIDE RECORDS SUMMARY | 2025-03-01 07:52 | XMS_ITS | Clinical Summary ---
Author Organization 175 [facility] Address [address] [place] [address] Phone Care Team Providers Care Sales Representative Name Role Phone Salud Lester MD Primary Care Provider [phone] Allergies Active Allergy Reactions Criticality Noted Date [...] Active inhaler, assist devices (AEROCHAMBER PLUS FLOW-VU [facility] [place]) 09/28/2018 Active sulfaSALAzine (AZULFIDINE) 500 mg tablet Take 500 mg by mouth 2 times daily. 11/18/2017 Active warfarin (COUMADIN) 5 mg tablet Take 5 mg by mouth See Admin Instructions. [place] [facility] managing INR's. Active Active Problems Problem Noted Date Diagnosed Date Aortic aneurysm ([facility] V24) 09/03/2020 Overview (04/04/2024): Last Assessment & Plan: -Dilated at 4.4 cm from July 2019 -Discussed strict blood pressure control Carotid artery disease ([facility] V24) 09/03/2020 Overview (04/04/2024): Last Assessment & Plan: -50-69% LICA disease from September 2018 -[place]. Lange of [facility] Surgery Chronic atrial fibrillation ([facility] V24, [facility] V28) 09/03/2020 Overview (04/04/2024): Last [...] controlled at this time on diltiazem, continue -[id number] = 6 (age, gender, HTN, CHF, DM), continue anticoagulation with warfarin. Risks and benefits of anticoagulation have thoroughly reviewed with the patient she verbalized understanding and agrees to continue. Bilateral bunions 09/26/2018 Diabetic polyneuropathy asso ciated with type 2 diabetes mellitus ([facility] [place] [place]24, [facility] V28) 09/26/2018 Hammer toe of left foot 09/26/2018 Esophageal reflux 12/29/2017 Rheumatoid arthritis ([facility] V24, [facility] V28) 11/18/2017 Hypertension 07/07/2016 Overview (04/04/2024): Last Assessment & Plan: 110/64 Continue diltiazem, furosemide, and lisinopril at current doses. Anxiety 04/09/2016 Paroxysmal atrial fibrillation ([facility] [place] [place] V24, [facility] V28) 04/09/2016 DVT (deep venous thrombosis) ([facility] [place] [place]24, [facility] V28) 04/02/2016 Diabetes mellitus type 2, un complicated ([facility] [place] [place] V24, [facility] V28) 03/24/2016 Chronic obstructive pulmonar y disease ([facility] [place] [place] V24, [facility] [place] [place] V28) 03/05/2016 Hyperlipidemia 03/05/2016 Pulmonary embolism ([facility] [place] [place] V24, [facility] V28) Congestive heart failure ([facility] [place] [place] V24, [facility] V 28) 02/13/2016 Overview (04/04/2024): Last [...] AM EDT Office Visit Orthopedic Surgery - [address] [address] Vinny Yates DPM Krista nixon, right (Primary Dx); Acquired hallux valgus of right foot; Acquired hallux valgus of left foot; Dermatophytosis of nail; Hammer toe of left foot; Diabetic mononeuropathy simplex ([facility] V24, [facility] V28); Metatarsalgia of both feet; Pain in toe of left foot; Type II diabetes mellitus with peripheral circulatory disorder ([facility] V24, [facility] V28); Corns and callosities; Pain in toe of right foot from Last 3 Months Immunizations Immunization Administration Dates Next Due Influenza Quadravalent, MDCK [...] AM EDT Office Visit Orthopedic Surgery - [place] [address] [phone] Vinny Yates, DPM [address] [address] Health Maintenance Due Date Last Done Comments Diabetes: Annual Foot Exam 1948 Diabetes: Annual Retina Eye Exam 1948 Zoster Vaccines (1 of 2) 1988 RSV Immunization Adult Patients (1 - 1-dose 75+ series) 2013 Pneumococcal Vaccine: 50+ Years (2 of 2 - PPSV23, PCV20, or PCV21) 04/30/2016 03/05/2016, 03/05/2016, 03/05/2010 Cholesterol Screening (Lipid Panel) 05/03/2022 Falls Risk Assessment 05/03/2022 Medicare Annual Wellness Visit 05/03/2022 Osteoporosis Screening (Bone Density Screening) 05/03/2022 Social Influencers of Health Screening 05/03/2022 Diabetes: Blood Sugar Control Test (HGBA1C) 05/15/2022 Hypertension/CHF/CAD Annual BMP Blood Test 05/15/2022 10/04/2018 Depression Screening 05/31/2024 COVID-19 Vaccine ( season) 2025 07/29/2020, 07/08/2020 Influenza Vaccine (#1) 2025 , 03/02/2023, 03/25/2022, [...] Insurance MEDICARE [place] - [place] Care Teams Sales Representative Relationship Specialty Start Date End Date Salud Lester MD [address] [place] [address] PCP - General Internal Medicine 03/29/18
--- OUTSIDE RECORDS SUMMARY | 2025-03-01 07:52 | XMS_ITS | Clinical Summary ---
Author Organization [facility] Address [address] [place], [place] [id number] Phone Care Team Providers Care Grant Coordinator Name Role Phone Sauld Lester MD Primary Care Provider Allergies Active Allergy Reactions Criticality Noted Date [...] Payer (Ef fective 1994-Present) Name:Camille Andrade Member ID:[id number] Relation to Subscriber:Self Name:Camille Andrade Subscriber ID:[id number] Payer ID:[id number] Group ID:Not on file Type:Medicare Address: [facility] [employer] [facility] [address] [place] [address] [facility] MEDICARE PART A & B Member Subscriber Plan / Payer (Ef fective 1994-) Name:Camille Andrade Member ID:[id number] Relation to Subscriber:Self Name:Camille Andrade Subscriber ID:[id number] Payer ID:[id number] Group ID:Not on file Type:Medicare Address: [address] [place], [place] [address]HEALTH MEDICARE PART A & B Member Subscriber Plan / Payer ( fective 1994-Present) Name:Camille Andrade Member ID:[id number] Relation to Subscriber:Self Name:Camille Andrade Subscriber ID:[id number] Payer ID:[id number] Group ID:Not on file Type:Medicare Address: [address] [place] [id number] [place] MED[place] PART A & B Member Subscriber Plan / Payer (Ef fective 1994-Present) Name:Camille Andrade Member ID:[id number] Relation to Subscriber:Self Name:Camille Andrade Subscriber ID:[id number] Payer ID:[id number] Group ID:Not on file Type:Medicare Address: [address] [place] [id number] [facility] MEDICARE PART A & B Member Subscriber Plan / Payer (Ef fective 1994-Present) Name:Camille Andrade Member ID:[id number] Relation to Subscriber:Self Name:Camille Andrade Subscriber ID:[id number] Payer ID:[id number] Group ID:Not on file Type:Medicare Address: [address] [place] [address] [facility] B [facility] Care Teams Grant Coordinator Relationship Specialty Start Date End Date Salud Lester MD [address] [facility] [address] [place] [id number] PCP - General Internal Medicine 02/10/23 Additional Source Comments The information contained in this document represents components of the legal health record. It is not the complete legal health record.[facility]
[2025-03-01 08:20] VITALS: BP 124/70; PULSE 86; RESP 18; TEMP 37.1; O2SAT 95; BMI 38.4
--- NOTE | 2025-03-01 08:20 | A.OFFPC_ITS ---
Vital Signs 03/01/25 08:20 Height 5 ft 6 in Weight 238 lb BMI 38.4 BP 124/70 Blood Pressure Location Lt brachial Position Sitting Respiration 18 Pulse 86 Pulse Source Pulse Oximeter Temp 98.7 F Temp Source Oral Pulse Oximetry (%) 95 Oxygen Delivery Method Room Air Intake Visit Reasons: Ear blocked Intake Note: Pt is here today for a sick visit. Pt c/o R ear blocked. Allergies atorvastatin (From Lipitor) Allergy (Unknown, Verified 03/01/25 08:26) Leg cramps ciprofloxacin (From Cipro) Allergy (Unknown, Verified 03/01/25 08:26) Stomach Upset ezetimibe (From Zetia) Allergy (Unknown, Verified 03/01/25 08:26) leg cramps hydrochlorothiazide (From Avalide) Allergy (Unknown, Verified 03/01/25 08:26) Stomach Upset infliximab (From Remicade) Allergy (Unknown, Verified 03/01/25 08:26) Infection irbesartan (From Avalide) Allergy (Unknown, Verified 03/01/25 08:26) Stomach Upset metformin Allergy (Unknown, Verified 03/01/25 08:26) nausea moxifloxacin (From Avelox) Allergy (Unknown, Verified 03/01/25 08:26) Stomach Upset nifedipine Allergy (Unknown, Verified 03/01/25 08:26) upset stomach pravastatin Allergy (Unknown, Verified 03/01/25 08:26) stomach upset rosuvastatin (From Crestor) Allergy (Unknown, Verified 03/01/25 08:26) Leg cramps terazosin (From Hytrin) Allergy (Unknown, Verified 03/01/25 08:26) Stomach Upset valsartan (From Diovan) Allergy (Unknown, Verified 03/01/25 08:26) Stomach Upset warfarin (WARFARIN) Allergy (Unknown, Verified 03/01/25 08:26) Anaphylaxis Tobacco use date assessed: 03/01/25 Fall risk assessment: No Falls in past year Last assessed Fall Risk: 03/01/25 Dental Screening Dental Screen Date: 12/27/24 HPI Ear blocked HPI Details Patient presents for the follow-up of hypertension type 2 diabetes COPD stable on current medications. She complains of blocked ears but denies ear pain or discharge. [facility] Medical History Hypothyroid Ankle pain, right Hypokalemia LILY (obstructive sleep apnea) (HFpEF) heart failure with preserved ejection fraction Depression Physical deconditioning Cervical radiculopathy due to degenerative joint disease of spine Venous insufficiency Recurrent pulmonary embolism Diabetes Hyperlipidemia Hemorrhoids Obesity Rheumatoid arthritis COPD (chronic obstructive pulmonary disease) Atrial fibrillation Hypertension Surgical History History of carpal tunnel syndrome History of surgery Family History Father No problems noted. Mother No problems noted. Social History Household Members: Family Housing: House Do you presently have visiting nurse or other home services: No Alcohol intake: never Patient Tobacco Use Status: Never used Tobacco e-Cigarette/Vaping Use: Never Used service: No Current occupational status: retired Cognitive needs: No Hearing needs: No Vision needs: Yes Questionnaire Thrive Questionnaire Date Thrive assessed: 07/10/24 I am a: Parent/Caregiver What is your living situation today?: I have a steady place to live Within the past 12 months, did the food you bought not last and you didn't have the money to get more?: Never true Within the past 12 months, did you worry whether your food would run out before you got money to buy more?: Never true Do you have trouble paying for medicines?: No Do you have trouble getting transportation to medical appointments?: No Do you have trouble paying your heating and electricity bill?: No Do you have trouble taking care of your child, family member or friend?: No Do you have trouble with day-to-day activities such as bathing, preparing meals, shopping, managing finances, etc.?: Yes Are you currently unemployed and looking for a job?: No Are you interested in more education?: No Please select the resources that you would like help with: None Currently or been in a relationship where the following occur: No concerns reported THRIVE Score: 0 AUDIT C Alcohol Use Questionnaire (AUDIT-C) 3. How often do you have six or more drinks on one occasion?: Never Total Score: 0 OTILIO-7 AMB Questionnaire OTILIO-7 Date OTILIO - 7 assessed: 02/05/25 Source: Developed by Drs. Gume Adam, Sandhya Chopra, Maojr Headley and colleagues, with an educational kimberlee from [employer]. Review of Systems Const All systems reviewed & are unremarkable except as noted in HPI and below Eyes Reports no additional complaints ENT Reports no additional complaints Card Reports no additional complaints Resp Reports no additional complaints GI Reports no additional complaints Reports no additional complaints Physical exam (Primary Care) Vital Signs: Last Vital Signs Temp 98.7 F 03/01/25 08:20 Pulse 86 03/01/25 08:20 Resp 18 03/01/25 08:20 BP 124/70 03/01/25 08:20 Pulse Ox 95 03/01/25 08:20 Oxygen Delivery Method Room Air 03/01/25 08:20 BMI result Body Mass Index 38.4 Tobacco/Smoking Status: Tobacco use Status Tobacco use date assessed 03/01/25 03/01/25 08:28 Patient Tobacco Use Status Never used Tobacco 03/01/25 08:28 e-Cigarette/Vaping Use Never Used 03/01/25 08:28 Thrive Assessment: Date of Thrive Assessment Date Thrive assessed 07/10/24 03/01/25 08:28 Currently or been in a relationship where the following occur: No concerns reported Const General: no acute distress HENMT Head: Yes normal to inspection Ears: unable to visualize TM (Cerumen impaction) bilaterally Eyes General: appearance normal, both eyes and all related structures Resp Effort & Inspection: normal respiratory effort Auscultation: clear to auscultation bilaterally Cardio Rhythm: regular rhythm Heart sounds: S1 normal heart sound present and S2 normal heart sound present Coding Level of Care Code Est Pt Level 4 (97336) Diagnoses Hypertension I10 (HFpEF) heart failure with preserved ejection fraction I50.30 COPD (chronic obstructive pulmonary disease) J44.1 COPD type: COPD with acute exacerbation Assessment & Plan Assessment & Plan (1) Hypertension: Comment: BP goal less than 130/80 Code(s): I10 - Essential (primary) hypertension Category: Medical Plan: Continue current medications (2) (HFpEF) heart failure with preserved ejection fraction: Comment: Echo 01/2021, severely increased left ventricle thickness, hyperdynamic LVEF, mild MS, myocardial perfusion nl 04/20, Echo 09/21 unchanged Code(s): I50.30 - Unspecified diastolic (congestive) heart failure Category: Medical Plan: Continue current medications (3) COPD (chronic obstructive pulmonary disease): Code(s): J44.9 - Chronic obstructive pulmonary disease, unspecified Category: Medical Qualifiers: COPD type: COPD with acute exacerbation Qualified Code(s): J44.1 - Chronic obstructive pulmonary disease with (acute) exacerbation Plan: Continue Trelegy and supplemental O2
== END 2025-03-01 15:02 | disposition home or self-care (01) ==
LOC: HO.HMCC 07:50
PROVIDERS: PCP Internal Medicine; Visit Provider Internal Medicine
DX: I10 Essential (primary) hypertension (principal); I50.30 Unspecified diastolic (congestive) heart failure; J44.1 Chronic obstructive pulmonary disease with (acute) exacerbation

== ENCOUNTER → 2025-03-01 07:49 | Outpatient (BNVA) | payer MEDICARE, MEDICAID, SELFPAY | PROVIDERS: PCP Internal Medicine; Visit Provider Internal Medicine | DX: I11.0 Hypertensive heart disease with heart failure (principal); I50.30 Unspecified diastolic (congestive) heart failure; E11.9 Type 2 diabetes mellitus without complications; J44.1 Chronic obstructive pulmonary disease with (acute) exacerbation; Z79.899 Other long term (current) drug therapy | CPT/HCPCS: 99212 ==

== ENCOUNTER 2025-04-02 07:38 | Outpatient (REF) | payer MEDICARE, MEDICAID, SELFPAY ==
--- OUTSIDE RECORDS SUMMARY | 2025-04-02 07:41 | XMS_ITS | Clinical Summary ---
Author Organization [facility] Address [address] [place], [place] [address] Phone Care Team Providers Care Ship'S Master Name Role Phone Salud Lester MD Primary Care Provider [phone] Allergies Active Allergy Reactions Criticality Noted Date [...] file Insurance MEDICARE PART A & B [facility] MED[facility] PART A & B HEALTH MEDICARE PART A & B [place] [facility] Care Teams Ship'S Master Relationship Specialty Start Date End Date Salud Lester MD [address] [place] [address] PCP - General Internal Medicine 02/10/23 Additional Source Comments The information contained in this document represents components of the legal health record. It is not the complete legal health record.[facility]
--- OUTSIDE RECORDS SUMMARY | 2025-04-02 07:41 | XMS_ITS | Clinical Summary ---
Author Organization [facility] Address [address] [place] [address] Phone Care Team Providers Care School Athletic Director Name Role Phone Salud Lester MD Primary Care Provider Allergies Active [...] Active inhaler, assist devices (AEROCHAMBER PLUS FLOW-VU [facility] [place]) 09/28/2018 Active sulfaSALAzine (AZULFIDINE) 500 mg tablet Take 500 mg by mouth 2 times daily. 11/18/2017 Active warfarin (COUMADIN) 5 mg tablet Take 5 mg by mouth See Admin Instructions. [facility] managing INR's. Active Active Problems Problem Noted Date Diagnosed Date Aortic aneurysm ([facility] V24) 09/03/2020 Overview (04/04/2024): Last Assessment & Plan: -Dilated at 4.4 cm from July 2019 -Discussed strict blood pressure control Carotid artery disease ([facility] V24) 09/03/2020 Overview (04/04/2024): Last Assessment & Plan: -50-69% LICA disease from September 2018 -followed by Dr. Lange of [facility] Vascular Surgery Chronic atrial fibrillation ([facility] V24, [facility]/ C V28) 09/03/2020 Overview (04/04/2024): Last Assessment [...] controlled at this time on diltiazem, continue -[id number] = 6 (age, gender, HTN, CHF, DM), continue anticoagulation with warfarin. Risks and benefits of anticoagulation have thoroughly reviewed with the patient she verbalized understanding and agrees to continue. Bilateral bunions 09/26/2018 Diabetic polyneuropathy asso ciated with type 2 diabetes mellitus ([facility], [facility] V28) 09/26/2018 Hammer toe of left foot 09/26/2018 Esophageal reflux 12/29/2017 Rheumatoid arthritis ([facility] V24, [facility] V28) 11/18/2017 Hypertension 07/07/2016 Overview (04/04/2024): Last Assessment & Plan: 110/64 Continue diltiazem, furosemide, and lisinopril at current doses. Anxiety 04/09/2016 Paroxysmal atrial fibrillation ([facility], [facility] V28) 04/09/2016 DVT (deep venous thrombosis) ([facility] V[facility], [facility] V28) 04/02/2016 Diabetes mellitus type 2, un complicated ([facility] V[facility], [facility] V28) 03/24/2016 Chronic obstructive pulmonar y disease ([facility], [facility] V28) 03/05/2016 Hyperlipidemia 03/05/2016 Pulmonary embolism ([facility], [facility] V28) Congestive heart failure ([facility] V24, [facility] V 28) 02/13/2016 Overview (04/04/2024): Last Assessment [...] Encounters Date Type Department Care Team Description 03/08/2025 8:30 AM EDT Office Visit Orthopedic Surgery - [address] [address] Vinny Yates DPM Krista nixon, right (Primary Dx); Acquired hallux valgus of right foot; Acquired hallux valgus of left foot; Dermatophytosis of nail; Hammer toe of left foot; Corns and callosities; Type II diabetes mellitus with peripheral circulatory disorder ([facility] V24, [facility] V28); Pain in toe of left foot; Metatarsalgia of both feet; Diabetic mononeuropathy simplex ([facility] V24, [facility] V28); Pain in toe of right foot; Primary osteoarthritis of both feet from Last 3 Months Immunizations Immunization Administration [...] Care Team (Late st Contact Info) Description 08/06/2025 9:00 AM EDT Office Visit Orthopedic Surgery - [place] [address] [place] [address] [place] [phone] Vinny Yates, DPHi [facility] [place] [address] Health Maintenance Due Date Last Done Comments [...] Annual BMP Blood Test Abstracted Historical Provider HEALTH MAINTENANCE Final Result from Last 3 Months or Most Recently Relevant to Health Maintenance Insurance MEDICARE [place]ICAID - [place] Care Teams School Athletic Director Relationship Specialty Start Date End Date Salud Lester MD [address] [place] [address] PCP - General Internal Medicine 03/29/18
[2025-04-02 10:26] LABS: MANUAL DIFF FLAG NO
[2025-04-02 10:48] LABS: Hematocrit 49.0 % (37.0-47.0); Hemoglobin 15.5 g/dl (12.0-16.0); Imm Gran Abs Auto 0.01 X10*3/uL (0.00-0.03); Imm Gran Pct Auto 0.2 % (0.0-0.4); Lymphocytes Absolute Auto 1.5 X10*3/uL (1.2-4.9); Mean Corpuscular HGB Conc 31.6 g/dl (31.0-35.0); Mean Corpuscular Hemoglobin 30.3 pg (27.0-33.0); Mean Corpuscular Volume 95.7 fL (80.0-98.0); NRBC Abs Auto 0.000 X10*3/uL (0.0-0.012); NRBC Pct Auto 0.0 /100WBC (0.0-0.2); Platelet Count 209 X10*3/uL (160-400); Red Blood Count 5.12 X10*6/uL (4.20-5.50); White Blood Count 5.1 X10*3/uL (4.8-10.8)
[2025-04-02 11:06] LABS: Alanine Aminotransferase 13 U/L (0-31); Albumin Level 4.4 g/dL (3.5-5.0); Alkaline Phosphatase 116 U/L (39-117); Anion Gap 14 (12-20); Aspartate Amino Transferase 26 U/L (5-31); Blood Urea Nitrogen 17 mg/dL (9-16); Calcium 9.4 mg/dL (8.4-10.2); Carbon Dioxide 32 mmol/L (22-29); Chloride 99 mmol/L (96-108); Estimated Glomerular Filt Rate > 60; Potassium 4.0 mmol/L (3.3-5.1); Sodium 141 mmol/L (135-145); Total Protein 7.6 g/dL (6.5-8.0)
== END 2025-04-02 07:39 | disposition home or self-care (01) ==
LOC: HO.HMGCLDS 07:38
PROVIDERS: Absent Provider Student in an Organized Health Care Education/Training Program; PCP Internal Medicine; Visit Provider Internal Medicine
DX: I11.0 Hypertensive heart disease with heart failure (principal); I50.30 Unspecified diastolic (congestive) heart failure; E11.9 Type 2 diabetes mellitus without complications; M05.79 Rheumatoid arthritis with rheumatoid factor of multiple sites without organ or systems involvement; I48.91 Unspecified atrial fibrillation; E03.9 Hypothyroidism, unspecified; E55.9 Vitamin D deficiency, unspecified
CPT/HCPCS: 36415; 80053; 82306; 83036; 84443; 85025; 85652; 86140

== ENCOUNTER 2025-04-11 10:08 | Outpatient (AMB) | payer MEDICARE, MEDICAID, SELFPAY ==
--- NOTE | 2025-04-11 10:20 | MHC.OFFVIS ---
Vital Signs 04/11/25 10:32 Height 5 ft 6 in Weight 242 lb 15.19 oz BMI 39.2 BP 142/78 H Blood Pressure Location Rt brachial Position Sitting Pulse 77 Pulse Source Pulse Oximeter Pulse Oximetry (%) 98 Oxygen Delivery Method Room Air Intake Visit Reasons: RA Intake Note: Patient presents for RA follow up. Travel Registered Nurse Nicu Required: Yes Travel Registered Nurse Nicu Language: [place] Travel Registered Nurse Nicu Services: Travel Registered Nurse Nicu Offered & Declined Travel Registered Nurse Nicu Name: Soo Ferguson Information Interpreted: non-clinical & clinical Library Clerk Talking Books: Library Clerk Talking Books Present (Soo Ferguson) Accompanied by: Daughter Allergies atorvastatin (From Lipitor) Allergy (Unknown, Verified 04/11/25 10:31) Leg cramps ciprofloxacin (From Cipro) Allergy (Unknown, Verified 04/11/25 10:31) Stomach Upset ezetimibe (From Zetia) Allergy (Unknown, Verified 04/11/25 10:31) leg cramps hydrochlorothiazide (From Avalide) Allergy (Unknown, Verified 04/11/25 10:31) Stomach Upset infliximab (From Remicade) Allergy (Unknown, Verified 04/11/25 10:31) Infection irbesartan (From Avalide) Allergy (Unknown, Verified 04/11/25 10:31) Stomach Upset metformin Allergy (Unknown, Verified 04/11/25 10:31) nausea moxifloxacin (From Avelox) Allergy (Unknown, Verified 04/11/25 10:31) Stomach Upset nifedipine Allergy (Unknown, Verified 04/11/25 10:31) upset stomach pravastatin Allergy (Unknown, Verified 04/11/25 10:31) stomach upset rosuvastatin (From Crestor) Allergy (Unknown, Verified 04/11/25 10:31) Leg cramps terazosin (From Hytrin) Allergy (Unknown, Verified 04/11/25 10:31) Stomach Upset valsartan (From Diovan) Allergy (Unknown, Verified 04/11/25 10:31) Stomach Upset warfarin (WARFARIN) Allergy (Unknown, Verified 04/11/25 10:31) Anaphylaxis Medication List - Last Reconciled 04/11/25 by Dacia Lynn MD acetaminophen ER (Tylenol 8 Hour) 1,300 mg PO Q8H albuterol sulfate 0.63 mg (3 mL) inhalation Q4-6H PRN apixaban (Eliquis) 5 mg PO BID blood sugar diagnostic As directed blood sugar diagnostic (FreeStyle Test strips) check glucose once a day blood-glucose meter As directed compr.stocking,knee,long,x-lrg 10-20 mmHg diltiazem HCl ER 240 mg PO DAILY Farxiga (dapagliflozin propanediol) 5 mg PO DAILY NS uaguararrrt-aswsebhnh-euomwxsn 200-62.5-25 mcg (Trelegy Ellipta) 1 inh inhalation DAILY folic acid 1 mg PO DAILY furosemide 40 mg PO BID gabapentin 300 mg PO TID 90 days glipizide 5 mg PO DAILY hospital bed As directed incontinence pad, liner, disp As directed incontinence pad, liner, disp As directed levothyroxine 50 mcg PO QAM lisinopril 5 mg PO BID meclizine 25 mg PO DAILY PRN minocycline 100 mg PO BID 90 days pantoprazole 40 mg PO DAILY@0600 potassium chloride ER 20 mEq (2 x 10 mEq) PO DAILY sertraline (Zoloft) 25 mg PO DAILY Shower Chair As directed sucralfate (Carafate) 1 g PO BID tramadol 100 mg (2 x 50 mg) PO TID 30 days [Walker, Rollator with seat As directed] HPI Comments Details: Patient is an 84-year-old female with COPD, diabetes complicated by CKD stage 3, hypertension complicated by heart failure with preserved ejection fraction, hyperlipidemia, hypothyroidism, atrial fibrillation on anticoagulation, polyarticular osteoarthritis and seropositive rheumatoid arthritis here today for follow up. Interval History: Patient last seen 12/06/24 with me - On minocycline 100mg bid (takes daily), gabapentin 300mg tid and tramadol 100mg tid - The increased tramadol helps - Not sure if the gabapentin increase helped - Joints hurt with changes in the weather - Has pain sometimes to her PIPs especially over the herbeden's nodes Today - On minocycline 100mg bid (takes daily), gabapentin 300mg tid and tramadol 100mg tid - No change to her sx - Stable overall Rheumatologic History: +RF++CCP dx around 1999 gold salts. Not tolerated Methotrexate not tolerated Arava ineffective Hydroxychloroquine not tolerated Remicade for 3 months, left foot osteomyelitis SSZ around 2018 partially effective. stopped 10/2023 could not tolerate s/e Initial history with Dr. Mccollum: This is an 82-year-old female who presents for evaluation of rheumatoid arthritis. Patient presents with her daughter. She has a poor historian. She stated that she was diagnosed with RA in her 60s. She states that she has been on different medicines and usually they would be discontinued due to a side effect. Currently she has been on sulfasalazine 1000 mg Twice daily since around 2019. Prescribed by Dr. Salazar and continued by her PCP. Arava was ineffective. She could not tolerate methotrexate and hydroxychloroquine. She developed right foot osteomyelitis once after Remicade was started. She states that she has diffuse pain. She has pain in her hands, her neck, shoulders, back, knees. She stated that she had reconstructive surgery for her right foot years ago. She gets periodic gel injections for both knees every 6 months. 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 The prescription dates back to 2006. She takes it as needed and it is helpful She has a history of blood clot and is on Eliquis regularly. Most recent DVT was around 9 years ago. Patient also has history of COPD. She uses 2 L of oxygen as needed. She never smoked. She also has history of obstructive sleep apnea and uses a CPAP. She is unaware of any family history of an autoimmune rheumatic disease. Current Rheumatology Medication(s): Minocycline 100 mg b.i.d. (takes daily) Gabapentin 300mg TID Tramadol 100mg TID [facility] Medical History Hypothyroid Ankle pain, right Hypokalemia LILY (obstructive sleep apnea) (HFpEF) heart failure with preserved ejection fraction Depression Physical deconditioning Cervical radiculopathy due to degenerative joint disease of spine Venous insufficiency Recurrent pulmonary embolism Diabetes Hyperlipidemia Hemorrhoids Obesity Rheumatoid arthritis COPD (chronic obstructive pulmonary disease) Atrial fibrillation Hypertension Surgical History History of carpal tunnel syndrome History of surgery Family History Father No problems noted. Mother No problems noted. Social History Household Members: Family Housing: House Do you presently have visiting nurse or other home services: No Alcohol intake: never Patient Tobacco Use Status: Never used Tobacco e-Cigarette/Vaping Use: Never Used service: No Current occupational status: retired Cognitive needs: No Hearing needs: No Vision needs: Yes Review of Systems Narrative Review of Systems Constitutional: Denies fever, chills, weight loss ENT: Denies vision changes, eye pain or eye redness, dental caries, dry mouth GI: Denies nausea, vomiting, diarrhea, abdominal pain, change in BM Pulm: Denies SOB, RODRIGUEZ, hemoptysis, wheezing Cards: Denies chest pain, palpitations Skin: Denies Raynaud's, rash, nail changes, photosensitivity, DIESEL DINKEY OPERATOR: Denies headaches, weakness, paresthesias, recurrent falls MSK: as per HPI All other systems reviewed and are unremarkable except noted above Physical Exam Exam Exam: Vital signs reviewed Physical Examination CONSTITUITIONAL Patient alert and cooperative. Well appearing and in no apparent painful distress MSK Hands Right Hand: Able to make a fist. No swelling or tenderness to palpation of the MCPs, PIPs or DIPs. Left Hand: Able to make a fist. No swelling or tenderness to palpation of the MCPs, PIPs or DIPs. Very prominent Lorraine's and Heberden nodes throughout bilateral hands. Synovial hypertrophy noted to the MCPs particularly the 2nd and 3rd MCPs bilaterally but no tenderness to palpation Wrists Right Wrist: No swelling or TTP Left Wrist: No swelling or TTP Elbows Right Elbow: No swelling or TTP. No TTP of the medial epicondyle. No TTP of the lateral epicondyle Left Elbow: No swelling or TTP. No TTP of the medial epicondyle. No TTP of the lateral epicondyle Shoulders Right shoulder: No swelling noted. No TTP of the AC joint. No TTP of the subacromial bursa. No TTP of the posterior shoulder Left shoulder: No swelling noted. No TTP of the AC joint. No TTP of the subacromial bursa. No TTP of the posterior shoulder Decreased ROM bilaterally Knees Right knee: No swelling noted. No TTP of the knee joint line. No TTP of pes anserine bursa Left knee: No swelling noted. No TTP of the knee joint line. No TTP of pes anserine bursa. Crepitations felt bilaterally Ankles Right ankle: Good ankle dorsiflexion and plantar flexion. No swelling. No TTP of the ankle joint Left ankle: Good ankle dorsiflexion and plantar flexion. No swelling. No TTP of the ankle joint Hyperpigmentation consistent with lipodermatosclerosis bilaterally Feet Right foot: Negative squeeze test. Bunions to the 1st and 5th MTP but no deformities. Left foot: Negative squeeze test. Hammertoe deformities and bunions at the 1st and 5th MTP. Tender points? No tenderness to palpation of the bilateral trapezius, supraspinatus, anterior costochondral junctions, bilateral suboccipital muscle insertions SKIN No rashes Vital Signs: Last Vital Signs Pulse 77 04/11/25 10:32 BP 142/78 H 04/11/25 10:32 Pulse Ox 98 04/11/25 10:32 Oxygen Delivery Method Room Air 04/11/25 10:32 BMI result Body Mass Index 39.2 Results Reviewed Results Reviewed: Laboratory Tests 04/02/25 07:43 WBC 5.1 RBC 5.12 Hgb 15.5 Hct 49.0 H Plt Count 209 ESR 11 Sodium 141 Potassium 4.0 Chloride 99 Carbon Dioxide 32 H BUN 17 H Creatinine 0.86 AST 26 ALT 13 C-Reactive Protein 0.28 25-OH Vitamin D Total 21.7 L Laboratory Tests 06/17/21 09/16/23 08:26 13:45 Rheumatoid Factor < 15.0 Cycl Citrul Peptide IgG <16 JANN Screen POSITIVE A JANN Titer 1:40 H JANN Pattern Nuclear, Homogeneous A SS-A/Ro Antibody <1.0 NEG SS-B/La Antibody <1.0 NEG Sm ([place]) Antibody <1.0 NEG SM/PLATE SHEAR OPERATOR IgG Antibody <1.0 NEG Double Strand DNA Ab 1 Complement C3 144 Complement C4 25 Assessment & Plan Assessment & Plan (1) Rheumatoid arthritis: Comment: -ve RF-ve CCP deforming dx around 1999 gold salts. Not tolerated Methotrexate not tolerated Arava ineffective Hydroxychloroquine not tolerated Remicade for approx 3 months, left foot osteomyelitis SSZ around 2018 DC 10/2023 ineffective Minocycline 10/2023 At least partially effective Code(s): M06.9 - Rheumatoid arthritis, unspecified Category: Medical Qualifiers: Rheumatoid arthritis location: multiple sites Rheumatoid factor presence: with rheumatoid factor Qualified Code(s): M05.79 - Rheumatoid arthritis with rheumatoid factor of multiple sites without organ or systems involvement Plan: #Seronegative erosive RA Patient is an 84-year-old female with a longstanding history of a seronegative erosive rheumatoid arthritis, this is now complicated by significant osteoarthritis in the hands as evidenced by Lorraine's and Heberden nodes throughout. It is very difficult to differentiate between RA and OA type pain. On exam today I do not see any active synovitis and so this leads me to believe that the pain that she is experiencing is more so from the OA than the RA. Her inflammatory markers have also normalized. Given that she gets some benefit from minocycline, we will continue it Plan - Minocycline 100mg bid - RTC 6 months - Labs before visit: CBC, CMP, ESR, CRP (2) Generalized osteoarthritis: Code(s): M15.9 - Polyosteoarthritis, unspecified Category: Medical Plan: #Polyarticular OA Patient with polyarticular osteoarthritis. Currently gets gel injections from Orthopedics every 6 months. I do believe that her hand osteoarthritis is a significant cause of her pain and so I want to maximize therapy for her hand osteoarthritis today. Plan - Topical diclofenac 1% 4 times a day to bilateral hands - Pedal bike for knee OA - Gabapentin to 300mg tid - Tramadol 100mg tid (3) rn long term care use of minocycline: Code(s): Z79.2 - [facility] (current) use of antibiotics Plan: #rn long term care use of minocycline Risks and benefits of minocycline in the management of patient's rheumatoid arthritis discussed with the patient Risks include GI upset including diarrhea and nausea Benefits include improved disease control Plan I spent 30 minutes reviewing the record and labs, taking a history, examining the patient, discussing the treatment plan, ordering diagnostic work up and documenting in the medical record Orders: Orders Complete Blood Count Auto Diff 6 Months Z79.899 - Other terminal make up operator (current) drug therapy Comprehensive [place]. Panel Fast 6 Months Z79.899 - Other terminal make up operator (current) drug therapy Erythrocyte Sedimentation Rate 6 Months Z79.899 - Other terminal make up operator (current) drug therapy C Reactive Protein 6 Months Z79.899 - Other penitentiary (current) drug therapy Medications: New [Pedal Bike] As directed 1 ea 0RF M17.0 - Bilateral primary osteoarthritis of knee Refilled minocycline 100 mg PO BID 180 caps 1RF 90 days M05.79 - Rheumatoid arthritis with rheumatoid factor of multiple sites without organ or systems involvement gabapentin 300 mg PO TID 270 caps 1RF 90 days M15.9 - Polyosteoarthritis, unspecified tramadol 100 mg (2 x 50 mg) PO TID 180 tabs 5RF pain 30 days M79.7 - Fibromyalgia Coding Level of Care Code Est Pt Level 4 (38790) Complex EM visit Add On G2211 Diagnoses Rheumatoid arthritis involving multiple sites with positive rheumatoid factor M05.79 Rheumatoid arthritis location: multiple sites Rheumatoid factor presence: with rheumatoid factor Generalized osteoarthritis M15.9 rn long term care use of minocycline Z79.2
[2025-04-11 10:32] VITALS: BP 142/78; PULSE 77; O2SAT 98; BMI 39.2
--- OUTSIDE RECORDS SUMMARY | 2025-04-11 11:56 | XMS_ITS | Clinical Summary ---
Author Organization [facility] Address [address] [facility] [place] [address] Care Team Providers Care Paper Handler Name Role Phone Salud Lester MD Primary Care Provider Arnulfo Mccollum MD Unavailable [phone] Laura Palma KITCHEN STEWARD/STEWARDESS Unavailable [phone] Allergies Active Allergy Reactions Severity Noted Date [...] 5 mg by mouth See Admin Instructions. [place] [facility] managing INR's. 0 Active furosemide [...] controlled at this time on diltiazem, continue -[id number] = 6 (age, gender, HTN, CHF, DM), [...] 84 09/25/2020 3:48 PM EDT Temperature 36.7 C (98.1 F) 07/04/2019 2:19 PM EST Respiratory Rate 17 07/04/2019 2:19 PM EST [...] 10/22/2021 10/23/2011, 10/23/2011 BMI CHECK/ADVISE 05/31/2024 INFLUENZA (#1) 2025 03/09/2019, 01/29, 03/11/2017, Additional history exists Care Teams Paper Handler Relationship Specialty Start Date End Date Salud Lester MD PCP - General Internal Medicine 03/29/18 Arnulfo Wilks MD [address] [place], [place] [id number] Specialist Cardiovascular Disease 08/22/20 Laura Palma NP [address] [place] [address] Cardiology 08/22/20
--- OUTSIDE RECORDS SUMMARY | 2025-04-11 11:56 | XMS_ITS | Encounter Summary ---
Author Organization [facility] Address [address] [place] [address] Care Team Providers Care Cafeteria Aide Name Role Phone Salud Lester MD Primary Care Provider Arnulfo Mccollum MD Unavailable [phone] Laura Palma NP Unavailable [phone] Reason for Visit * Reason Onset Date Comments Hospital Procedure 10/16/2020 Sotalol Load/ RAUL/Afib Ablation Encounter Details Date Type Department Care Team Description 10/16/2020 Telephone Cardio PVC POC 154 [address] [facility] [address] [place] [address] Daina Chaney MD 300 [facility] [address] [place], [place] [id number] Hospital Procedure (Sotalol Load/RAUL/Afib Ablation) Social History [...] load on a Wednesday 6.. and have production coordinator doctor monitor the patient over the [...] on filedocumented in this encounter Care Teams Cafeteria Aide Relationship Specialty Start Date End Date Salud Lester MD PCP - General Internal Medicine 03/29/18 Arnulfo Wilks MD [address] [place] [address] Specialist Cardiovascular Disease 08/22/20 Laura Palma NP [address] [place] [address] Cardiology 08/22/20 documented as of this encounter
--- OUTSIDE RECORDS SUMMARY | 2025-04-11 11:56 | XMS_ITS | Encounter Summary ---
Author Organization [facility] Address [address] [place] [address] Care Team Providers Care Post Doctoral Researcher Name Role Phone Salud Lester MD Primary Care Provider Geoffrey Arnulfo Sheldon MD Unavailable [phone] Laura Palma NP Unavailable [phone] Encounter Details Date Type Department Care Team Description 07/22/2020 Ncr Operator Report Medical Records [address] [place] [address] Facundo Garcia MD Social History Tobacco Use [...] on filedocumented in this encounter Care Teams Post Doctoral Researcher Relationship Specialty Start Date End Date Salud Lester MD PCP - General Internal Medicine 03/29/18 Arnulfo Wilks MD [address] [place] [address] Specialist Cardiovascular Disease 08/22/20 Laura Palma NP [address] [place] [address] Cardiology 08/22/20 documented as of this encounter
--- OUTSIDE RECORDS SUMMARY | 2025-04-11 11:56 | XMS_ITS | Encounter Summary ---
Author Organization [facility] Address [address] [facility] [place] [address] Care Team Providers Care Sports Marketer Name Role Phone Salud Lester MD Primary Care Provider Arnulfo Mccollum MD Unavailable [phone] Laura Palma NP Unavailable [phone] Encounter Details Date Type Department Care Team Description 11/06/2019 Telephone Gastroenterology - [place] [address] [facility] [address] [place] [address] Hoa Sewell DScPAS Social History [...] on filedocumented in this encounter Care Teams Sports Marketer Relationship Specialty Start Date End Date Salud Lester MD PCP - General Internal Medicine 03/29/18 Arnulfo Wilks MD [address] [place] [address] Specialist Cardiovascular Disease 08/22/20 Laura Palma SPOT WELDER [address] [place] [address] Cardiology 08/22/20 documented as of this encounter
--- OUTSIDE RECORDS SUMMARY | 2025-04-11 11:56 | XMS_ITS | Clinical Summary ---
Author Organization [facility] Address [address] [place], [place] [phone] Phone Care Team Providers Care Programs Director Name Role Phone Salud Lester MD Primary Care Provider [phone] Allergies Active Allergy Reactions Criticality Noted Date [...] patient's age to complete this topic IPV VACCINES Aged Out No longer eligi ble based on patient's age to complete this topic MENINGOCOCCAL VACCINES (ACWY) Aged Out No longer eligible based on patient's age to complete this topic MENINGOCOCCAL VACCINES (B) Aged Out N o longer eligible based on patient's age to complete this topic Medical Devices Not on file Insurance MEDICARE PART A & B [facility] MEDICARE PART A & B [employer] MEDICARE PART A & B [address] [place], [place] [address]HEALTH MEDICARE PART A & B [facility] MEDICARE PART A & [facility] Care Teams Programs Director Relationship Specialty Start Date End Date Salud Lester MD [address] [place], [place] [id number] PCP - General Internal Medicine 02/10/23 Additional Source Comments The information contained in this document represents components of the legal health record. It is not the complete legal health record.[facility]
--- OUTSIDE RECORDS SUMMARY | 2025-04-11 11:56 | XMS_ITS | Clinical Summary ---
Author Organization [address] [facility] Address [address] [place] [address] Phone Care Team Providers Care Biological Science Aide Name Role Phone Salud Lester MD Primary Care Provider [phone] Allergies Active Allergy Reactions Criticality Noted Date [...] Active inhaler, assist devices (AEROCHAMBER PLUS FLOW-VU [facility]) 09/28/2018 Active sulfaSALAzine (AZULFIDINE) 500 mg tablet Take 500 mg by mouth 2 times daily. 11/18/2017 Active warfarin (COUMADIN) 5 mg tablet Take 5 mg by mouth See Admin Instructions. [place] [facility] managing INR's. Active Active Problems Problem Noted Date Diagnosed Date Aortic aneurysm ([facility] V24) 09/03/2020 Overview (04/04/2024): Last Assessment & Plan: -Dilated at 4.4 cm from July 2019 -Discussed strict blood pressure control Carotid artery disease ([facility] V24) 09/03/2020 Overview (04/04/2024): Last Assessment & Plan: -50-69% LICA disease from September 2018 -followed by Dr. Lange of [facility] Vascular Surgery Chronic atrial fibrillation ([facility] V24, [facility]/ [facility] V28) 09/03/2020 Overview (04/04/2024): Last Assessment [...] controlled at this time on diltiazem, continue -[id number] = 6 (age, gender, HTN, CHF, DM), continue anticoagulation with warfarin. Risks and benefits of anticoagulation have thoroughly reviewed with the patient she verbalized understanding and agrees to continue. Bilateral bunions 09/26/2018 Diabetic polyneuropathy asso ciated with type 2 diabetes mellitus ([facility] V24, [facility] V28) 09/26/2018 Hammer toe of left foot 09/26/2018 Esophageal reflux 12/29/2017 Rheumatoid arthritis ([facility] V24, [facility] V28) 11/18/2017 Hypertension 07/07/2016 Overview (04/04/2024): Last Assessment & Plan: 110/64 Continue diltiazem, furosemide, and lisinopril at current doses. Anxiety 04/09/2016 Paroxysmal atrial fibrillation ([facility] V24, [facility] V28) 04/09/2016 DVT (deep venous thrombosis) ([facility] V24, [facility] V28) 04/02/2016 Diabetes mellitus type 2, un complicated ([facility] V24, [facility] V28) 03/24/2016 Chronic obstructive pulmonar y disease ([facility] V24, [facility] V28) 03/05/2016 Hyperlipidemia 03/05/2016 Pulmonary embolism ([facility] V24, [facility] V28) Congestive heart failure ([facility] V24, [facility] V 28) 02/13/2016 Overview (04/04/2024): Last Assessment [...] AM EDT Office Visit Orthopedic Surgery - [address] [address] Vinny Yates DPM Krista nixon, right (Primary Dx); Acquired hallux valgus of right foot; Acquired hallux valgus of left foot; Dermatophytosis of nail; Hammer toe of left foot; Corns and callosities; Type II diabetes mellitus with peripheral circulatory disorder ([facility] V24, [facility] V28); Pain in toe of left foot; Metatarsalgia of both feet; Diabetic mononeuropathy simplex ([facility] V24, [facility] V28); Pain in toe of right foot; [...] AM EDT Office Visit Orthopedic Surgery - [place] [address] [address] Vinny Yates, DPHi [address] [address] Health Maintenance Due Date Last [...] 10/04/2018 Depression Screening 05/31/2024 COVID-19 Vaccine ( - season) 2025 07/29/2020, 07/08/2020 Influenza Vaccine (#1) [...] Insurance MEDICARE [place]ICAID - [place] Care Teams Biological Science Aide Relationship Specialty Start Date End Date Salud Lester MD [address] [place] [address] PCP - General Internal Medicine 03/29/18
--- OUTSIDE RECORDS SUMMARY | 2025-04-11 11:56 | XMS_ITS | Encounter Summary ---
Author Organization [facility] Address [address] [place] [address] Care Team Providers Care Business Analysis Consultant Name Role Phone Salud Lester MD Primary Care Provider Arnulfo Mccollum MD Unavailable [phone] Laura Palma NP Unavailable [phone] Reason for Visit * Reason Onset Date Comments Anticoagulation 03/23/2019 EGD - Dr Best 04/11/19 - Semaj Encounter Details Date Type Department Care Team Description 03/23/2019 Telephone Gastroenterology - [place] [address] [facility] [address] [place] [address] Jack Best MD [address] [facility] [address] [place] [address] Anticoagulation (EGD - Dr Best 04/11/19 - [...] EGD with DR Best on 04/11/19 @ [facility]. Patient on Eliquis./dg documented in this encounter Plan of Treatment Not on file documented as of this encounter Visit Diagnoses Not on filedocumented in this encounter Care Teams Business Analysis Consultant Relationship Specialty Start Date End Date Salud Lester MD PCP - General Internal Medicine 03/29/18 Arnulfo Wilks MD [address] [place] [address] Specialist Cardiovascular Disease 08/22/20 Laura Palma NP [address] [place] [address] Cardiology 08/22/20 documented as of this encounter
--- OUTSIDE RECORDS SUMMARY | 2025-04-11 11:56 | XMS_ITS | Encounter Summary ---
Author Organization [facility] Address [address] [place] [address] Care Team Providers Care Regional Guide Name Role Phone Salud Lester MD Primary Care Provider Arnulfo Mccollum MD Unavailable [phone] Laura Palma NP Unavailable [phone] Encounter Details Date Type Department Care Team Description 03/24/2019 Orders Only Medical Records [address] [place] [address] Abstract, Provider Epigastric abdominal pain; Chronic nausea; [...] reflux documented in this encounter Care Teams Regional Guide Relationship Specialty Start Date End Date Salud Lester MD PCP - General Internal Medicine 03/29/18 Arnulfo Wilks MD [address] [place] [address] [place] [address] Specialist Cardiovascular Disease 08/22/20 Laura Palma NP [address] [place] [address] Cardiology 08/22/20 documented as of this encounter
--- OUTSIDE RECORDS SUMMARY | 2025-04-11 11:56 | XMS_ITS | Encounter Summary ---
Author Organization [facility] Address [address] [place] [address] Care Team Providers Care Insurance Associate Name Role Phone Salud Lester MD Primary Care Provider Geoffrey Arnulfo Sheldon MD Unavailable [phone] Laura Palma NP Unavailable [phone] Encounter Details Date Type Department Care Team Description 10/15/2020 Online Community Manager Report Medical Records [address] [place] [address] Abstract, Provider Social History Tobacco Use Types [...] on filedocumented in this encounter Care Teams Insurance Associate Relationship Specialty Start Date End Date Salud Lester MD PCP - General Internal Medicine 03/29/18 Arnulfo Wilks MD [address] [place] [id number] Specialist Cardiovascular Disease 08/22/20 Laura Palma NP [address] [place] [address] Cardiology 08/22/20 documented as of this encounter
--- OUTSIDE RECORDS SUMMARY | 2025-04-11 11:56 | XMS_ITS | Encounter Summary ---
Author Organization [facility] Address [address] [place] [address] Care Team Providers Care Sheetmetal Trades Worker Name Role Phone Salud Lester MD Primary Care Provider Arnulfo Mccollum MD Unavailable [phone] Laura Palma NP Unavailable [phone] Encounter Details Date Type Department Care Team Description 09/10/2020 Tubing Machine Tender Report Medical Records [address] [place] [address] AkshatAnton [email or web address] Social History Tobacco Use Types [...] on filedocumented in this encounter Care Teams Sheetmetal Trades Worker Relationship Specialty Start Date End Date Salud Lester MD PCP - General Internal Medicine 03/29/18 Arnulfo Wilks MD [address] [place] [address] Specialist Cardiovascular Disease 08/22/20 Laura Palma NP [address] [place] [address] Cardiology 08/22/20 documented as of this encounter
--- OUTSIDE RECORDS SUMMARY | 2025-04-11 11:56 | XMS_ITS | Encounter Summary ---
Author Organization [facility] Address [address] [place] [address] Care Team Providers Care Slag Motor Operator Name Role Phone Salud Lester MD Primary Care Provider Geoffrey Arnulfo Sheldon MD Unavailable [phone] Laura Palma NP Unavailable [phone] Encounter Details Date Type Department Care Team Description 05/04/2018 Transfer Records Medical Records [address] [place] [address] Abstract, Provider Social History Tobacco Use Types [...] on filedocumented in this encounter Care Teams Slag Motor Operator Relationship Specialty Start Date End Date Salud Lester MD PCP - General Internal Medicine 03/29/18 Arnulfo Wilks MD [address] [place] [address] Specialist Cardiovascular Disease 08/22/20 Laura Palma NP [address] [place] [address] Cardiology 08/22/20 documented as of this encounter
--- OUTSIDE RECORDS SUMMARY | 2025-04-11 11:56 | XMS_ITS | Encounter Summary ---
Author Organization [facility] Address [address] [place] [address] Care Team Providers Care Chief Maintenance Supervisor Name Role Phone Salud Lester MD Primary Care Provider Arnulfo Mccollum MD Unavailable [phone] Laura Palma NP Unavailable [phone] Reason for Visit * Reason Onset Date Comments refill request 08/10/2019 Encounter Details Date Type Department Care Team Description 08/10/2019 Refill Gastroenterology - [address] [address] Hoa Sewell DScPAS refill request [...] MED LIST AND IS IDENTIFIED BELOW): {MED LIST:07343) Med name: Pantoprazole sod Dosage: 40 mg [...] on filedocumented in this encounter Care Teams Chief Maintenance Supervisor Relationship Specialty Start Date End Date Salud Lester MD PCP - General Internal Medicine 03/29/18 Arnulfo Wilks MD [address] [place] [address] [place] [address] Specialist Cardiovascular Disease 08/22/[address] [place] [address] Cardiology 08/22/20 documented as of this encounter
--- OUTSIDE RECORDS SUMMARY | 2025-04-11 11:56 | XMS_ITS | Encounter Summary ---
Author Organization [facility] Address [address] [place] [address] Care Team Providers Care Supervisor Microbiology Technologists Name Role Phone Salud Lester MD Primary Care Provider Arnulfo Mccollum MD Unavailable [phone] Laura Palma NP Unavailable [phone] Reason for Visit * Reason Onset Date Comments Jumana Special Procedure Gi 01/19/2020 endos copy Encounter Details Date Type Department Care Team Description 01/19/2020 Telephone Gastroenterology - [address] [address] Ho[facility] Sewell [facility] [...] daughter to schedule endoscopty - patient speak [place] and daughter is on verbal and brings patient to office - hosp. appointment Caller offered to speak with the nurse for assistance: NO Response: Contact Soo [phone] to schedule endoscopy documented in this encounter Plan of Treatment Not on file documented as of this encounter Visit Diagnoses Not on filedocumented in this encounter Care Teams Supervisor Microbiology Technologists Relationship Specialty Start Date End Date Salud Lester MD PCP - General Internal Medicine 03/29/18 Arnulfo Wilks MD [address] [place] [address] Specialist Cardiovascular Disease 08/22/20 Laura Palma NP [address] [place] [address] Cardiology 08/22/20 documented as of this encounter
== END 2025-04-11 11:04 | disposition home or self-care (01) ==
LOC: HO.RHES 10:09
PROVIDERS: PCP Internal Medicine; Visit Provider Student in an Organized Health Care Education/Training Program
DX: M05.79 Rheumatoid arthritis with rheumatoid factor of multiple sites without organ or systems involvement (principal); M15.9 Polyosteoarthritis, unspecified; Z79.2 Long term (current) use of antibiotics
CPT/HCPCS: 99214; G2211

== ENCOUNTER → 2025-04-11 10:08 | Outpatient (BNVA) | payer MEDICARE, MEDICAID, SELFPAY | PROVIDERS: PCP Internal Medicine; Visit Provider Student in an Organized Health Care Education/Training Program | DX: M05.79 Rheumatoid arthritis with rheumatoid factor of multiple sites without organ or systems involvement (principal); Z79.01 Long term (current) use of anticoagulants; Z79.2 Long term (current) use of antibiotics; M15.9 Polyosteoarthritis, unspecified | CPT/HCPCS: 99212 ==